=== PATIENT | female | born 1965 | race Two or more races ===

== ENCOUNTER → 2017-03-15 | Emergency (ER) | payer OTHER ==
[~2017-03-15] MED LIST: SODIUM CHLORIDE 0.9% 1000 ML INFUS.BAG IV ONE
[2017-03-15 14:18] VITALS: TEMP 98.2; BMI 46.4
--- NOTE | 2017-03-15 15:02 | PDOC ---
History of Present Illness - History of Present Illness Initial Comments: 51 year old female with a history of HTN, Insulin Dependent DM, Hep C treated, questionable liver cirrhosis, anxiety, MDD, diabetic neuropathy, MARILU, CVA ( residual left sided deficit on aspirin only), umbilical hernia repair, tubal ligation, section, recent one month psych admission for suicidal ideation and behavior presenting with vaginal bleeding and clots with lower abdominal pain for the past two weeks. She states that she usually has her periods toward the end of every month and was supposed to have one at the end of January which is what she originally attributed this vaginal bleeding to but it has been worsening ever since and she is now passing clots. Her periods typically last for 3-4 days but this is now been ongoing for at least two weeks. She clams she is going through 20 menstrual pads per day and they are all soaked with blood and clots. She describes the abdominal pain as lower bilateral deep pain 10/10, relapsing/remitting without relieving factors but is worse with urination, with association with food ingestion. She also endorses appetite loss, nausea, occasional chills, and generalized weakness over the past two days with pre-syncopal sensation. She stopped taking her aspirin once she noticed prolonged vaginal bleeding. She had an episode like this approximately five years ago that nearly required blood transfusion and she claims was never attributed to an identifiable cause. She denies chest pain, cough, fever, diarrhea, bloody bowel movements, constipation, vomiting, or other sick symptoms. She is not currently suicidal or homicidal. 03/15/17 15:36 <Abiel Chavez - Last Filed: 03/15/17 19:40> <Luz Sims - Last Filed: 03/15/17 22:15> - General Chief Complaint: Vaginal Bleeding Stated Complaint: Vaginal Bleeding Time Seen by Provider: 03/15/17 15:01 Past History - Past Medical History Asthma: Yes Cardiac Disorders: No CVA: Yes CHF: Yes Diabetes: Yes HTN: Yes Liver Disease: Yes (hep C) Psychiatric Problems: Yes (depression, anxiety, BIPOLAR) Suicide Attempt (Hx): No - Surgical History Abdominal Surgery: Yes (UMBILICAL HERNIA) - Psycho/Social/Smoking Cessation Hx Anxiety: Yes Suicidal Ideation: No Smoking History: Never smoked Have you smoked in the past 12 months: No If you are a former smoker, when did you quit?: 2013 'Breaking Loose' booklet given: 09/16/14 Hx Alcohol Use: No Drug/Substance Use Hx: No Substance Use Type: None <Abiel Chavez - Last Filed: 03/15/17 19:40> <Luz Sims - Last Filed: 03/15/17 22:15> - Past Medical History Allergies/Adverse Reactions: Allergies Allergy/AdvReac Type Severity Reaction Status Date / Time Iodinated Contrast- Oral and Allergy Verified 03/15/17 14:18 IV Dye [Iodinated Contrast Media - IV Dye] Home Medications: Ambulatory Orders Fluoxetine HCl [Prozac -] 40 mg PO DAILY 09/15/14 Gabapentin [Neurontin -] 600 mg PO TID 09/15/14 Davey-3 Fatty Acids [Davey-3] 1,000 mg PO BID 09/15/14 Albuterol Sulfate Inhaler - [Ventolin HFA Inhaler -] 1 - 2 inh PO QID 03/15/16 Clonazepam [Klonopin -] 1 mg PO TID 03/15/16 Diphenhydramine [Benadryl Capsule -] 25 mg PO PRN PRN 03/15/16 Mometasone Furoate [Asmanex 220Mcg -] 1 inh IH DAILY 03/15/16 Fluticasone Propionate [Flovent Diskus] 50 mcg IH QID 10/05/16 Gabapentin 300 mg PO HS 03/15/17 Insulin Glargine,Hum.rec.anlog [Lantus Solostar PEN (NF)] 45 ml SQ PRN 03/15/17 Insulin Glargine,Hum.rec.anlog [Lantus Solostar PEN -] 45 units SQ AM 03/15/17 Liraglutide [Victoza -] 1.8 mg SQ DAILY@0700 03/15/17 Lisinopril 10 mg PO DAILY 03/15/17 Topiramate [Topamax] 25 mg PO BID 03/15/17 Review of Systems - Review of Systems Constitutional: Yes: Chills, Loss of Appetite. No: Diaphoresis, Fever HEENTM: No: Blurred Vision, Recent change in vision Respiratory: No: Cough, Shortness of Breath Cardiac (ROS): Yes: Lightheadedness. No: Chest Pain, Irregular Heart Rate, Palpitations ABD/GI: Yes: Abdominal Distended, Nausea. No: Blood Streaked Bowels, Constipated, Diarrhea, Vomiting, Tarry Stools : Yes: Pain. No: Dysuria, Frequency, Flank Pain Musculoskeletal: Yes: Back Pain. No: Muscle Pain, Muscle Weakness Neurological: No: Headache, Numbness Psychiatric: Yes: Anxiety, Depression <Abiel Chavez - Last Filed: 03/15/17 19:40> *Physical Exam - Vital Signs Last Vital Signs Temp Pulse Resp BP Pulse Ox 98.2 F 108 H 20 110/79 97 03/15/17 14:15 03/15/17 14:15 03/15/17 14:15 03/15/17 14:15 03/15/17 14:15 - Physical Exam General Appearance: Yes: Nourished, Appropriately Dressed. No: Apparent Distress HEENT: positive: EOMI, JANETH, Normal Voice Neck: positive: Trachea midline, Normal Thyroid, Supple. negative: Tender, Rigid Respiratory/Chest: positive: Lungs Clear, Normal Breath Sounds. negative: Chest Tender, Respiratory Distress Cardiovascular: positive: Regular Rhythm, S1, S2, Murmur, Tachycardia. negative : Regular Rate, Edema Gastrointestinal/Abdominal: positive: Normal Bowel Sounds, Protuberent, Distended, Other (abdominal hernia repair site intact with subcutaneous induration). negative: Tender, Flat, Soft, Guarding, Rebound, Tenderness Musculoskeletal: negative: CVA Tenderness Extremity: positive: Normal Range of Motion Integumentary: positive: Normal Color, Dry, Warm Neurologic: positive: Fully Oriented, Alert, Normal Response, Depressed Affect ( Frequently crying on re-examinations.). negative: Normal Mood/Affect <Abiel Chavez - Last Filed: 03/15/17 19:40> - Vital Signs Last Vital Signs Temp Pulse Resp BP Pulse Ox 98.2 F 89 18 118/75 98 03/15/17 20:46 03/15/17 20:46 03/15/17 20:46 03/15/17 20:46 03/15/17 20:46 <Luz Sims - Last Filed: 03/15/17 22:15> ED Treatment Course - LABORATORY CBC & Chemistry Diagram: 03/15/17 16:04 03/15/17 16:04 <Abiel Chavez - Last Filed: 03/15/17 19:40> - LABORATORY CBC & Chemistry Diagram: 03/15/17 16:04 03/15/17 16:04 - ADDITIONAL ORDERS Additional order review: Laboratory Results 03/15/17 03/15/17 03/15/17 21:40 16:04 16:04 INR 1.08 Sodium Potassium Chloride Carbon Dioxide Anion Gap BUN Creatinine Creat Clearance w eGFR POC Glucometer [id number] Random Glucose Calcium Total Bilirubin AST ALT Alkaline Phosphatase Total Protein Albumin Serum , Qual Urine Color Urine Appearance Urine pH Ur Specific Canon Urine Protein Urine Glucose (UA) Urine Ketones Urine Blood Urine Nitrite Urine Bilirubin Urine Urobilinogen Ur Leukocyte Esterase Urine RBC Urine WBC Ur Epithelial Cells Urine HCG, Qual Blood Type O POSITIVE Antibody Screen Negative 03/15/17 03/15/17 03/15/17 16:04 16:04 15:51 INR Sodium 140 Potassium 3.4 L Chloride 107 Carbon Dioxide 24 Anion Gap 9 BUN 9 D Creatinine 0.9 Creat Clearance w eGFR > 60 POC Glucometer 93.64901 Random Glucose 91 D Calcium 9.5 Total Bilirubin 0.3 D AST 10 L D ALT 18 Alkaline Phosphatase 87 Total Protein 8.1 Albumin 3.7 Serum , Qual Negative Urine Color Ltyellow Urine Appearance Clear Urine pH 7.0 Ur Specific Canon 1.015 Urine Protein Negative Urine Glucose (UA) Negative Urine Ketones Negative Urine Blood 3+ H Urine Nitrite Negative Urine Bilirubin Negative Urine Urobilinogen 2.0 H Ur Leukocyte Esterase Trace Urine RBC 309 Urine WBC 7 Ur Epithelial Cells Rare Urine HCG, Qual Cancelled Blood Type Antibody Screen 03/15/17 03/15/17 03/15/17 21:40 16:04 15:51 RBC 4.59 MCV 80.2 MCHC 33.0 RDW 13.9 MPV 9.2 Neutrophils % 56.0 Lymphocytes % 32.2 D Monocytes % 7.2 Eosinophils % 4.1 Basophils % 0.5 POC Glucometer 234.81937 93.65366 - Medications Given in the ED: ED Medications Discontinued Medications Generic Name Dose Route Start Last Admin Trade Name Freq PRN Reason Stop Dose Admin Sodium Chloride 1,000 ml 03/15/17 15:32 03/15/17 16:03 Normal Saline - IV 03/15/17 15:33 1,000 ml ONCE ONE Administration <Luz Sims - Last Filed: 03/15/17 22:15> Medical Decision Making - Medical Decision Making 51 year old female with significant psychiatric history, hernia repair, tubal ligation, and CVA presenting with vaginal bleeding for the past two weeks around the time other usual menstrual period. This is most concerning for uterine fibroids, pre-menopausal signs, and less likely ectopic or intra- uterine (given history of tubal ligation). Will get CBC with diff, CMP , type and screen, pt/inr, TVUS, and 1L of NS. 03/15/17 16:02 Patient was crying so I reentered the room and she asked me to help her. When I asked with what. She stated, " I want to end it all and I want your help." She denied active intent or plan but was recently released from a hospital where she endorsed similar desires and was cutting her wrists with her lancets. 16:35 Transporter informed me that the patient was asking him for a knife while she was being transported upstairs. That patient was subseqently placed on 1:1 when she returned and placed in a room close to the physicians' desk. Psych was called and Dr. Yu was spoken with and agreed to see the patient. 03/15/17 19:36 Slightly elevated white count of 12 without anemia and other abs WNL. Pt. was signed out to Dr. Sims in a stable condition pending psych evaluation and another call back from Dr. Yu who as paged for the 3rd time at 19:38 PM. <Abiel Chavez - Last Filed: 03/15/17 19:40> *DC/Admit/Observation/Transfer - Attestations Physician Attestion: 03/15/17 19:40 I, Dr. Abiel Chavez, attest that this document has been prepared under my direction and personally reviewed by me in its entirety. I further attest, that it accurately reflects all work, treatment, procedures and medical decision -making performed by me. <Abiel Chavez - Last Filed: 03/15/17 19:40> - Discharge Dispostion Admit: No <Luz Sims - Last Filed: 03/15/17 22:15> Diagnosis at time of Disposition: Vaginal bleeding, Suicidal ideation - Discharge Dispostion Disposition: HOME Condition at time of disposition: Improved - Referrals Referrals: Damaris Solis MD [Primary Care Provider] - - Patient Instructions Printed Discharge Instructions: DI for Abnormal Uterine Bleeding, DI for Suicidal Ideation-Adult Additional Instructions: follow up outpatient with [facility]. return for any problems or concerns. you [facility], you can call the [facility] at [phone] to ask for phone number . return for any dizziness, or any concerns. you should take daily vitamin with iron.
[2017-03-15 16:19] LABS: BASOPHIL 0.5 % (0-2.0); EOSINOPHIL 4.1 % (0-4.5); MCH 26.5 pg (25.7-33.7); MEAN CELL VOLUME 80.2 fl (80-96); MEAN PLT VOLUME 9.2 fl (7.5-11.1); PLATELET COUNT 268 K/MM3 (134-434); RDW 13.9 % (11.6-15.6); URINE APPEARANCE CLEAR; URINE BILIRUBIN NEGATIVE (NEGATIVE); URINE BLOOD 3+ (NEGATIVE); URINE COLOR LTYELLOW; URINE GLUCOSE (UA) NEGATIVE (NEGATIVE); URINE KETONE NEGATIVE (NEGATIVE); URINE LEUK ESTERASE TRACE (NEGATIVE); URINE NITRITE NEGATIVE (NEGATIVE); URINE PROTEIN NEGATIVE (NEGATIVE); WHITE BLOOD COUNT 12.9 K/mm3 (4.0-10.0)
[2017-03-15 16:28] LABS: URINE RBC 309 /hpf (0-3); URINE WBC 7 /hpf (3-5)
--- NOTE | 2017-03-15 16:29 | PDOC ---
Attending Attestation - Resident Resident Name: Zunilda Chavezmertdereck - ED Attending Attestation I have performed the following: I have examined & evaluated the patient, The case was reviewed & discussed with the resident, I agree w/resident's findings & plan, Exceptions are as noted - HPI HPI: 03/15/17 16:24 51 yo F h/o depression, recenlty admitted for one month for suicide attempt, here today with c/o vaginal bleeding. pt states about regular period, but today heavier. does have h/o anemia. no f/c no sob. no abd pain, but feels abd distension. is supposed to be taking vitamin D, no prior transfusion, but has been discussed with her in the past for severe anemia. no cp. no sob. mild lightheaded. - Physicial Exam PE: 03/15/17 16:25 on exam pt awake alert NAD. lungs clear bilaterally, heart RRR no mrg. abd soft NT ND. obese. pelvic with scant blood in the os ( Dr. Chavez performed with myself at bedside). psych pt calm cooperative. speech clear. denies HI or AH. pt states she wants to end it all, tearful. depressed affect. skin warm and dry. - Medical Decision Making 03/15/17 16:28 plan r/o , severe anemia. uterine changes, due to fullness, plan tvus, labd ivf, psych consult for pt expression of suicidality and high risk. 03/15/17 17:42 pt with further expression of suicidality, mentioned to one of ED techs she was looking for a knife. placed on 1:[address] Laboy will see pt in ED. 03/15/17 22:08 pt seen in ED by Dr. Laboy, psychiatrist. feels pt is ok for dc home. has out pt follow up at [facility]. lives at home with home health aid from 9 - 5. will dc home. given numver for Dr. Cleveland, or the OB clinic.
[2017-03-15 16:54] LABS: ALBUMIN 3.7 g/dl (3.4-5.0); ANION GAP 9 (8-16); BILIRUBIN,TOTAL 0.3 mg/dL (0.2-1.0); CO2 24 mmol/L (21-32); CREATININE 0.9 mg/dL (0.55-1.02); GLUCOSE,RANDOM 91 mg/dL (74-106); SGOT/AST 10 U/L (15-37); SGPT/ALT 18 U/L (12-78); TOT PROT 8.1 g/dl (6.4-8.2)
[2017-03-15 16:59] LABS: ALK PHOS 87 U/L (45-117); CALCIUM 9.5 mg/dL (8.5-10.1)
[2017-03-15 17:05] LABS: INR 1.08 (0.82-1.09); PROTHROMBIN TIME (PATIENT) 11.9 SEC (9.98-11.88)
[2017-03-15 20:47] VITALS: BP 118/75; PULSE 89
--- NOTE | 2017-03-15 22:10 | CON.PSY ---
Psychiatry Consult Chief Complaint: I came for bleeding problems. I have a history of depression. Symptoms: reports: Depressed Mood - Previous Psychiatric Treatment Outpatient: Less than 6 mos ago Inpatient: One prior admission - Previous Substance Abuse Treatment Outpatient: None Inpatient: None - Reason for Previous Treatment Reason for Previous Treatment: Major Depression - Allergies Allergies: Allergies Allergy/AdvReac Type Severity Reaction Status Date / Time Iodinated Contrast- Oral and Allergy Verified 03/15/17 14:18 IV Dye [Iodinated Contrast Media - IV Dye] - Current Living Status Usual Living Arrangement: Alone - Current Mental Status Evaluation Appearance: Well Groomed Attitude: Cooperative - Affect Affect: Constrictive Appropriateness: Appropriate to Content - Mood Mood: Euthymic - Speech/Language Expressive: Coherent - Psychomotor Activity Psychomotor Activity: Normal - Thought Process Thought Process: Intact - Thought Content Hallucinations: Absent Delusions: Absent - Self Perception Self Perception: No Impairment - Cognition Attention: Alert Orientation: Time Memory, Immediate Recall: Intact Memory, Short Term: 3/3 Memory, Remote with Promptin/3 - Abstraction Proverb Interpretation: Intact Judgement: Intact - Insight Insight: Intact - Impulse Control Impulse Control: Minimally Impaired - Suicidal Ideation Suicidal Ideation: No - Homicidal Ideation Homicidal Ideation: No Assessment/Plan 1) Patioent is not acutely suicidal at this time. 2) Discharge when medically stable. 3) Psych follow up at [facility] opd.
== END | disposition home or self-care (01) ==
LOC: JER 14:13
DX: N93.9 Abnormal uterine and vaginal bleeding, unspecified (principal); R45.851 Suicidal ideations; I10 Essential (primary) hypertension; E11.9 Type 2 diabetes mellitus without complications; F41.9 Anxiety disorder, unspecified; F32.9 Major depressive disorder, single episode, unspecified; G47.33 Obstructive sleep apnea (adult) (pediatric)
CPT/HCPCS: 36415; 76830-TC; 80053; 81003; 81015; 84703; 85025; 85610; 86850; 86900; 86901; 99283-25

== ENCOUNTER 2017-06-23 09:50 | Observation (INO) | payer OTHER ==
[2017-06-23 09:59] VITALS: BMI 45.6
--- NOTE | 2017-06-23 10:28 | PDOC ---
History of Present Illness - General Chief Complaint: Syncope/Near Syncope Stated Complaint: DIZZINESS Time Seen by Provider: 06/23/17 10:07 History Source: Patient - History of Present Illness Timing/Duration: other Severity: severe Associated Symptoms: reports: nausea/vomiting, syncope. denies: chest pain, diaphoresis, fever/chills, headaches, loss of appetite, shortness of breath Past History - Past Medical History Allergies/Adverse Reactions: Allergies Allergy/AdvReac Type Severity Reaction Status Date / Time Iodinated Contrast- Oral and Allergy Intermediate Itching Verified 06/23/17 09: 55 IV Dye [Iodinated Contrast Media - IV Dye] tramadol AdvReac Verified 06/23/17 09:55 Home Medications: Ambulatory Orders Fluoxetine HCl [Prozac -] 40 mg PO DAILY 09/15/14 Gabapentin [Neurontin -] 600 mg PO BID 09/15/14 Vaughan-3 Fatty Acids [Vaughan-3] 1,000 mg PO BID 09/15/14 Albuterol Sulfate Inhaler - [Ventolin HFA Inhaler -] 1 - 2 inh PO QID 03/15/16 Gabapentin 900 mg PO HS 03/15/17 Insulin Glargine,Hum.rec.anlog [Lantus Solostar PEN -] 50 units SQ AM 03/15/17 Liraglutide [Victoza -] 1.8 mg SQ DAILY@1200 03/15/17 Lisinopril 10 mg PO DAILY 03/15/17 Topiramate [Topamax] 25 mg PO BID 03/15/17 Clonazepam [Klonopin -] 0.5 mg PO BID PRN 05/12/17 Hydrocodone/Acetaminophen [[place] 10-325 Tablet] 1 each PO BID PRN #60 tablet MDD 2 06/14/17 Asthma: Yes Cardiac Disorders: No CVA: Yes COPD: No CHF: No Dementia: No Diabetes: Yes (on meds) GI Disorders: No HTN: Yes Liver Disease: Yes (hep C - treated) Psychiatric Problems: Yes (depression, anxiety, BIPOLAR) Seizures: No Thyroid Disease: No - Surgical History Abdominal Surgery: Yes (UMBILICAL HERNIA) - Suicide/Smoking/Psychosocial Hx Smoking History: Former smoker Have you smoked in the past 12 months: No If you are a former smoker, when did you quit?: 04/28/15 Information on smoking cessation initiated: No 'Breaking Loose' booklet given: 09/16/14 Hx Alcohol Use: No Drug/Substance Use Hx: No Substance Use Type: None Hx Substance Use Treatment: No Review of Systems - Review of Systems Constitutional: No: Chills, Fever Respiratory: No: Shortness of Breath Cardiac (ROS): Yes: Lightheadedness, Syncope. No: Chest Pain, Palpitations ABD/GI: Yes: Nausea. No: Vomiting Neurological: Yes: Dizziness. No: Headache *Physical Exam - Vital Signs Last Vital Signs Temp Pulse Resp BP Pulse Ox 98 F 102 H 24 125/76 99 06/23/17 09:55 06/23/17 09:55 06/23/17 09:55 06/23/17 09:55 06/23/17 09:55 - Physical Exam General Appearance: Yes: Appropriately Dressed. No: Apparent Distress HEENT: positive: Normal Voice Neck: positive: Supple Respiratory/Chest: positive: Lungs Clear, Normal Breath Sounds. negative: Respiratory Distress Cardiovascular: positive: Regular Rate, S1, S2 Gastrointestinal/Abdominal: positive: Soft. negative: Tender Integumentary: positive: Dry, Warm, Other (hyperpigmented macular rash to L inframmary area representing ?healing cellulitis vs ?fungal) Neurologic: positive: Fully Oriented, Alert, Normal Mood/Affect, Motor Strength 5/5, Finger to Nose (no nystagmus, Arsenio intact, no drift, no ataxia) ED Treatment Course - LABORATORY CBC & Chemistry Diagram: 06/23/17 11:00 06/23/17 11:00 - RADIOLOGY Radiology Studies Ordered: Category Date Time Status HEAD CT WITHOUT CONTRAST [CT] Stat CT Scan 06/23/17 10:17 Ordered CHEST X-RAY PORTABLE* [RAD] Stat Radiology 06/23/17 10:16 Ordered Medical Decision Making - Medical Decision Making 06/23/17 10:22 51 yo F, mordbidly obesed, HTN, IDDM, HCV, sleep apnea, asthma, anxiety, depression, bipolar, here w/ dizziness. Patient reports intermittent lightheadedness and vertigo 3 days regardless of position. States last night while walking to bathroom, she became dizzy and passed out and was found on the floor by daughter. States she did not come to ED because it was Thanksgiving and was with family, but this a.m. when she awoke lightheadedness returned. Also complaining of nausea. No vomiting, headache, slurred speech, visual changes, or focal weakness. Denies chest pain or shortness of breath. Of note , patient currently on keflex for cellulitis of left breast. Started taken meds >10 days ago but has been non-compliant. States she has taken keflex in the past with no adverse reaction. States wound to left breast not erythematous or painful and has no f/c. See exam Dizziness w/ syncope S/p admission for same in 2014 w/ negative workup and discharged w/ meclizine which pt is no longer on, also given neuro referral at the time Currently on keflex for L breast cellulitis though on exam has no e/o overt infection Appears uncomfortable w/ mild tachycardia to 102 at triage, chest/lungs clear otherwise and non-focal R/o ACS vs infectious vs metabolic, less likely CVA as non-focal, less likely PE -ekg -cxr -CTH -labs -trail of meclizine -anticipate admission 06/23/17 12:04 EKG, CT head and labs unremarkable. Pt continues to c/o dizziness despite meclizine. Will continue to manage symptoms and admit at this time 06/23/17 12:08 06/23/17 12:30 Case d/w hospitalist and pt admitted to tele obs *DC/Admit/Observation/Transfer Diagnosis at time of Disposition: Syncope Qualifiers: Syncope type: unspecified Qualified Code(s): R55 - Syncope and collapse - Discharge Dispostion Condition at time of disposition: Fair Admit: Yes - Referrals - Patient Instructions - Post Discharge Activity
[2017-06-23] MEDS ORDERED: MECLIZINE HCL 25 MG TABLET (FP) PO ONE (10:43)
[2017-06-23] MEDS ORDERED: SODIUM CHLORIDE 1,000 ML IV STA (10:44)
[2017-06-23 11:05] LABS: BASOPHIL 1.5 % (0-2.0); MCHC 32.3 g/dl (32.0-36.0); MEAN CELL VOLUME 77.4 fl (80-96); MEAN PLT VOLUME 9.5 fl (7.5-11.1); NEUTROPHILS 57.5 % (42.8-82.8); PLATELET COUNT 249 K/MM3 (134-434); RDW 13.4 % (11.6-15.6); WHITE BLOOD COUNT 8.3 K/mm3 (4.0-10.0)
[2017-06-23 11:30] LABS: ALBUMIN 3.3 g/dl (3.4-5.0); ANION GAP 10 (8-16); BILIRUBIN,TOTAL 0.2 mg/dL (0.2-1.0); CALCIUM 8.7 mg/dL (8.5-10.1); CO2 22 mmol/L (21-32); CREATININE 0.9 mg/dL (0.55-1.02); GLUCOSE,RANDOM 228 mg/dL (74-106); SGOT/AST 11 U/L (15-37); SGPT/ALT 17 U/L (12-78); TOT PROT 7.2 g/dl (6.4-8.2)
[2017-06-23 11:33] LABS: ALK PHOS 79 U/L (45-117); CPK 65 IU/L (26-192); TROPONIN I < 0.02 ng/ml (0.00-0.05)
[2017-06-23] MEDS ORDERED: MECLIZINE HCL 25 MG TABLET (FP) ONE (11:42)
[2017-06-23] MEDS ORDERED: diazePAM 5 MG TABLET PO ONE (12:05)
[2017-06-23 12:28] LABS: URINE APPEARANCE CLEAR; URINE BILIRUBIN NEGATIVE (NEGATIVE); URINE BLOOD 1+ (NEGATIVE); URINE COLOR STRAW; URINE GLUCOSE (UA) NEGATIVE (NEGATIVE); URINE KETONE NEGATIVE (NEGATIVE); URINE NITRITE NEGATIVE (NEGATIVE); URINE PROTEIN NEGATIVE (NEGATIVE); URINE UROBILINOGEN NEGATIVE mg/dL (0.2-1.0)
[2017-06-23] MEDS ORDERED: diazePAM 5 MG TABLET ONE (12:32)
[2017-06-23 12:59] LABS: URINE HYALINE CAST 1 /lpf; URINE RBC <1 /hpf (0-3); URINE WBC <1 /hpf (3-5)
--- NOTE | 2017-06-23 13:04 | HP ---
CHIEF COMPLAINT: Syncope PCP: none HISTORY OF PRESENT ILLNESS: This is a 51 year old female with PMHx of HTN, DM, HCV (treated with laura 2015), CVA, cirrhosis, anxiety, morbidly obese, who presented to the ED with syncope. The patient reports she started becoming more dizzy about 1 week ago and then yesterday she had a syncopal episode, but didn't want to be evaluated because it was Thanksgiving. Today, she reports feeling weak. She denies any bowel or bladder incontinence, chest pain, nausea, vomiting, shortness of breath , dizziness, headache, dysuria, frequency. She states that she took Meclizine but it did not help. ER course was notable for: (1) UA 1+ blood (2) Temp 98, pulse 102, BP 125/76, resp 94, O2 99% on RA (3) Chest X-ray: no evidence of active disease (4) Head CT: No significant interval change or acute intracranial pathology identified Recent Travel: denies PAST MEDICAL HISTORY: denies PAST SURGICAL HISTORY: x2 Social History: Smoking: denies Alcohol: denies Drugs: denies Family History: Allergies Iodinated Contrast- Oral and IV Dye [Iodinated Contrast Media - IV Dye] Allergy (Intermediate, Verified 06/23/17 09:55) Itching tramadol Adverse Reaction (Verified 06/23/17 09:55) HOME MEDICATIONS: Home Medications Medication Instructions Recorded Fluoxetine HCl [Prozac -] 40 mg PO DAILY 09/15/14 Gabapentin [Neurontin -] 600 mg PO BID 09/15/14 [place]-3 Fatty Acids [[place]-3] 1,000 mg PO BID 09/15/14 Albuterol Sulfate Inhaler - 1 - 2 inh PO QID 03/15/16 [Ventolin HFA Inhaler -] Gabapentin 900 mg PO HS 03/15/17 Insulin Glargine,Hum.rec.anlog 50 units SQ AM 03/15/17 [Lantus Solostar PEN -] Liraglutide [Victoza -] 1.8 mg SQ DAILY@1200 03/15/17 Lisinopril 10 mg PO DAILY 03/15/17 Topiramate [Topamax] 25 mg PO BID 03/15/17 Clonazepam [Klonopin -] 0.5 mg PO BID PRN 10/13/17 Hydrocodone/Acetaminophen [[place] 1 each PO BID PRN #60 tablet MDD 2 06/14/17 10-325 Tablet] REVIEW OF SYSTEMS CONSTITUTIONAL: Absent: fever, chills, diaphoresis, generalized weakness, malaise, loss of appetite, weight change HEENT: Absent: rhinorrhea, nasal congestion, throat pain, throat swelling, difficulty swallowing, mouth swelling, ear pain, eye pain, visual changes CARDIOVASCULAR: Syncope yesterday. Absent: chest pain, palpitations, irregular heart rate, lightheadedness, peripheral edema RESPIRATORY: Absent: cough, shortness of breath, dyspnea with exertion, orthopnea, wheezing, stridor, hemoptysis GASTROINTESTINAL:Absent: abdominal pain, abdominal distension, nausea, vomiting , diarrhea, constipation, melena, hematochezia GENITOURINARY: Absent: dysuria, frequency, urgency, hesitancy, hematuria, flank pain, genital pain MUSCULOSKELETAL: Absent: myalgia, arthralgia, joint swelling, back pain, neck pain SKIN: Absent: rash, itching, pallor HEMATOLOGIC/IMMUNOLOGIC: Absent: easy bleeding, easy bruising, lymphadenopathy, frequent infections ENDOCRINE:Absent: unexplained weight gain, unexplained weight loss, heat intolerance, cold intolerance NEUROLOGIC: Absent: headache, focal weakness or paresthesias, dizziness, unsteady gait, seizure, mental status changes, bladder or bowel incontinence PSYCHIATRIC: Absent: anxiety, depression, suicidal or homicidal ideation, hallucinations. PHYSICAL EXAMINATION Vital Signs - 24 hr 06/23/17 09:55 Temperature 98 F Pulse Rate 102 H Respiratory 24 Rate Blood Pressure 125/76 O2 Sat by Pulse 99 Oximetry (%) GENERAL: Awake, alert, and fully oriented, in no acute distress. Morbidly obese HEAD: Normal with no signs of trauma. EYES: Pupils equal, round and reactive to light, extraocular movements intact, sclera anicteric, conjunctiva clear. No lid lag. EARS, NOSE, THROAT: Ears normal, nares patent, oropharynx clear without exudates. Moist mucous membranes. NECK: Normal range of motion, supple without lymphadenopathy, JVD, or masses. LUNGS: Breath sounds equal, clear to auscultation bilaterally. No wheezes, and no crackles. No accessory muscle use. HEART: Regular rate and rhythm, normal S1 and S2 without murmur, rub or gallop. ABDOMEN: Soft, nontender, not distended, normoactive bowel sounds, no guarding, no rebound, no masses. No hepatomegaly or splenomegaly. MUSCULOSKELETAL: Normal range of motion at all joints. No bony deformities or tenderness. No CVA tenderness. UPPER EXTREMITIES: 2+ pulses, warm, well-perfused. No cyanosis. No clubbing. No peripheral edema. LOWER EXTREMITIES: 2+ pulses, warm, well-perfused. No calf tenderness. No peripheral edema. NEUROLOGICAL: Cranial nerves II-XII intact. Normal speech. Gait not observed PSYCHIATRIC: Cooperative. Good eye contact. Appropriate mood and affect. SKIN: Warm, dry, normal turgor, no rashes or lesions noted, normal capillary refill. Laboratory Results - last 24 hr 06/23/17 06/23/17 06/23/17 11:00 11:00 11:58 WBC 8.3 D RBC 4.33 Hgb 10.8 D Hct 33.5 MCV 77.4 L MCH 25.0 L MCHC 32.3 RDW 13.4 Plt Count 249 MPV 9.5 Neutrophils % 57.5 Lymphocytes % 30.6 Monocytes % 6.4 Eosinophils % 4.0 Basophils % 1.5 Sodium 140 Potassium 3.8 Chloride 108 H Carbon Dioxide 22 Anion Gap 10 BUN 10 Creatinine 0.9 Creat Clearance w eGFR > 60 Random Glucose 228 H D Calcium 8.7 Total Bilirubin 0.2 D AST 11 L ALT 17 Alkaline Phosphatase 79 Creatine Kinase 65 Troponin I < 0.02 Total Protein 7.2 Albumin 3.3 L Serum , Qual Urine Color Straw Urine Appearance Clear Urine pH 6.0 Ur Specific [place] 1.011 Urine Protein Negative Urine Glucose (UA) Negative Urine Ketones Negative Urine Blood 1+ H Urine Nitrite Negative Urine Bilirubin Negative Urine Urobilinogen Negative 06/23/17 12:00 WBC RBC Hgb Hct MCV MCH MCHC RDW Plt Count MPV Neutrophils % Lymphocytes % Monocytes % Eosinophils % Basophils % Sodium Potassium Chloride Carbon Dioxide Anion Gap BUN Creatinine Creat Clearance w eGFR Random Glucose Calcium Total Bilirubin AST ALT Alkaline Phosphatase Creatine Kinase Troponin I Total Protein Albumin Serum , Qual Negative Urine Color Urine Appearance Urine pH Ur Specific [place] Urine Protein Urine Glucose (UA) Urine Ketones Urine Blood Urine Nitrite Urine Bilirubin Urine Urobilinogen Assessment: This is a 51 year old female with PMHx of HTN, DM, HCV (treated with laura 2015), CVA, cirrhosis, anxiety, morbidly obese, who presented to the ED with syncope. Plan: 1) Syncope - Recurrent, episode in 2015, all workup normal, recommended outpatient tilt- table test. Patient is unaware if she had it done - Carotid dopplers with no evidence of high grade stenosis - ECHO with technically difficult study. Regional wall motion abnormalities, LV not well visualized, mild MR, mild TR, insufficient TR detected to calculate RVSP, no pericardial effusion, aortic valve is no well visualized - Trend troponins x1 negative - HgbA1c 05/05/17: 8.9 - F/u lipid panel - F/u TSH - F/u cardiology consult: will likely need tilt table test as outpatient if she has not already gotten it 2) Insulin dependent diabetes - BGM ACHS - Novolog 15u sq tidac - Levemir 50u sq daily - Continue to monitor 3) HTN - Continue Lisinopril - Continue to monitor 4) Sleep apnea - Patient reports does not use c-pap at home, f/u sleep study - F/u pulmonary consult 5) Anxiety: - Continue Clonazepam 6) F/E/N - Diabetic diet - Monitor electrolytes 7) Prophylaxis: - Zantac 150mg po hs - SCDs bilaterally 8) Dispo: - Awaiting cardiology evaluation CODE STATUS: FULL CODE Visit type - Emergency Visit Emergency Visit: Yes ED Registration Date: 06/23/17 Care time: The patient presented to the Emergency Department on the above date and was hospitalized for further evaluation of their emergent condition. - New Patient This patient is new to me today: Yes Date on this admission: 06/23/17 - Critical Care Critical Care patient: No
[2017-06-23] MEDS: clonazePAM 0.5 MG TABLET PO PRN ×2 (17:55→22:05)
[2017-06-23] MEDS: LIPASE/PROTEASE/AMYLASE 36,000 UNIT CAPSULE PO SCH (18:26)
[2017-06-23] MEDS: HEPARIN NA (PORCINE) 5,000 UNITS/ML 1ML VIAL SQ SCH ×2 (18:28→21:18)
[2017-06-23] MEDS: LEVOTHYROXINE NA 25 MCG TABLET (FP) PO SCH (18:28)
[2017-06-23 18:35] LABS: CPK 58 IU/L (26-192); TROPONIN I < 0.02 ng/ml (0.00-0.05)
[2017-06-23 19:40] LABS: URINE LEUK ESTERASE Negative (NEGATIVE)
[2017-06-23] MEDS: RANITIDINE HCL 150 MG TABLET (FP) PO SCH (21:19)
[2017-06-23] MEDS ORDERED: ZOLPIDEM TARTRATE 5 MG TABLET PO PRN (22:00)
[2017-06-23] MEDS ORDERED: CEPHALEXIN 250 MG/5 ML ORAL SUSPENSION PO SCH (22:00)
[2017-06-23] MEDS ORDERED: guaiFENesin 200 MG/10 ML 10 ML UNIT-DOSE CUPS PO ONE (22:00)
[2017-06-23] MEDS: ACETAMINOPHEN 325 MG TABLET (FP) PO PRN (23:51)
[2017-06-24] MEDS: HEPARIN NA (PORCINE) 5,000 UNITS/ML 1ML VIAL SQ SCH ×3 (06:23→21:49)
[2017-06-24] MEDS: INSULIN (NOVOLOG) ASPART 100 UNITS/ML 10ML VIAL SQ SCH ×3 (06:26→17:17)
[2017-06-24] MEDS: INSULIN DETEMIR 100 UNITS/ML MDV SQ SCH (06:26)
[2017-06-24] MEDS: LEVOTHYROXINE NA 25 MCG TABLET (FP) PO SCH (06:26)
[2017-06-24 07:38] LABS: MCH 24.8 pg (25.7-33.7); MCHC 32.2 g/dl (32.0-36.0); MEAN CELL VOLUME 77.1 fl (80-96); MEAN PLT VOLUME 9.4 fl (7.5-11.1); PLATELET COUNT 242 K/MM3 (134-434); RDW 13.2 % (11.6-15.6); WHITE BLOOD COUNT 7.6 K/mm3 (4.0-10.0)
[2017-06-24] MEDS ORDERED: PT OWN MED DRAWER 7, Y5N ONE (08:38)
[2017-06-24] MEDS ORDERED: SODIUM POLYSTYRENE SULFONATE 15 GM/60 ML BOTTLE ONE (08:38)
[2017-06-24] MEDS: ASPIRIN 325 MG ENTERIC COATED TABLET (FP) PO SCH ×2 (08:39→09:04)
[2017-06-24] MEDS: LIPASE/PROTEASE/AMYLASE 36,000 UNIT CAPSULE PO SCH ×4 (08:40→16:50)
[2017-06-24] MEDS: LISINOPRIL 10 MG TABLET (FP) PO SCH ×2 (08:40→09:04)
[2017-06-24] MEDS: clonazePAM 0.5 MG TABLET PO PRN ×2 (08:45→21:49)
[2017-06-24 09:05] LABS: ALBUMIN 3.1 g/dl (3.4-5.0); ALK PHOS 78 U/L (45-117); ANION GAP 9 (8-16); BILIRUBIN,TOTAL 0.5 mg/dL (0.2-1.0); CALCIUM 8.1 mg/dL (8.5-10.1); CHOLESTEROL 158 mg/dL (50-200); CO2 22 mmol/L (21-32); CREATININE 0.9 mg/dL (0.55-1.02); GLUCOSE,RANDOM 140 mg/dL (74-106); SGOT/AST 10 U/L (15-37); SGPT/ALT 16 U/L (12-78); THYROID STIMULATING HORMONE 2.92 uIU/ml (0.358-3.74)
[2017-06-24] MEDS ORDERED: TOPIRAMATE 25 MG TABLET (FP) PO SCH (10:00)
[2017-06-24] MEDS: oxyCODONE HCL 5 MG TABLET PO PRN ×2 (12:22→23:12)
[2017-06-24] MEDS: LIRAGLUTIDE 0.6 MG/0.1 ML SQ SCH (12:34)
--- NOTE | 2017-06-24 12:46 | CON.CARD ---
Consult Consult Specialty:: Cardiology Referred by:: Hospitalist Reason for Consultation:: Cardiac evaluation - History of Present Illness Chief Complaint: Syncope History of Present Illness: Patient is a 51 year old female with underlying history of hypertension , hypercholesterolemia, diabetes mellitus insulin requiring, CVA, cirrhosis, anxiety, morbid obesity and obstructive sleep apnea who presents with 2 episodes of syncope. She became dizzy followed by loss of consciousness. She denies chest pain, but complains of shortness of breath, cough slightly productive and intermittent palpitations. She denies paroxysmal nocturnal dyspnea or orthopnea. She denies fever or chills. She denies headache. She denies nausea, vomiting, diarrhea or abdominal pain. - History Source History Provided By: Patient, Medical Record Limitations to Obtaining History: No Limitations - Past Medical History [employer]: Yes: TIA Cardio/Vascular: Yes: CAD, HTN, Hyperlipdemia Pulmonary: Yes: Sleep Apnea ...LMP: 08/19/14 Infectious Disease: Yes: Other (Hep C) Psych: Yes: Anxiety Endocrine: Yes: Diabetes Mellitus - Past Surgical History Past Surgical History: Yes: - Alcohol/Substance Use Hx Alcohol Use: No - Smoking History Smoking history: Former smoker Have you smoked in the past 12 months: No If you are a former smoker, when did you quit?: 04/28/15 - Social History Usual Living Arrangement: Alone ADL: Independent History of Recent Travel: No Home Medications - Allergies Allergies/Adverse Reactions: Allergies Allergy/AdvReac Type Severity Reaction Status Date / Time Iodinated Contrast- Oral and Allergy Intermediate Itching Verified 06/23/17 09: 55 IV Dye [Iodinated Contrast Media - IV Dye] tramadol AdvReac Verified 06/23/17 09:55 - Home Medications Home Medications: Ambulatory Orders Fluoxetine HCl [Prozac -] 40 mg PO DAILY 09/15/14 Gabapentin [Neurontin -] 600 mg PO BID 09/15/14 Era-3 Fatty Acids [Era-3] 1,000 mg PO BID 09/15/14 Albuterol Sulfate Inhaler - [Ventolin HFA Inhaler -] 1 - 2 inh PO QID 03/15/16 Gabapentin 900 mg PO HS 03/15/17 Insulin Glargine,Hum.rec.anlog [Lantus Solostar PEN -] 50 units SQ AM 03/15/17 Liraglutide [Victoza -] 1.8 mg SQ DAILY@1200 03/15/17 Lisinopril 10 mg PO DAILY 03/15/17 Topiramate [Topamax] 100 mg PO BID 03/15/17 Clonazepam [Klonopin -] 0.5 mg PO BID PRN 05/12/17 Hydrocodone/Acetaminophen [[place] 10-325 Tablet] 1 each PO BID PRN #60 tablet MDD 2 06/14/17 Family Disease History - Family Disease History Family Disease History: Diabetes: Brother, Sister, Other: Daughter Review of Systems - Review of Systems Constitutional: denies: Chills, Fever Cardiovascular: reports: Palpitations, Shortness of Breath. denies: Chest Pain Respiratory: reports: Cough, SOB. denies: Hemoptysis, Orthopnea, PND Gastrointestinal: denies: Abdominal Pain, Constipation, Diarrhea, Melena, Nausea , Rectal Bleeding, Vomiting Genitourinary: denies: Dysuria Neurological: reports: Dizziness, Syncope. denies: Headache, Numbness, Parasthesia, Seizure, Unsteady Gait, Weakness Vital Signs: Vital Signs Temperature 97.8 F 06/24/17 06:00 Pulse Rate 78 06/24/17 06:00 Respiratory Rate 18 06/24/17 06:00 Blood Pressure 109/65 06/24/17 06:00 O2 Sat by Pulse Oximetry (%) 95 06/23/17 21:00 Constitutional: Yes: Obese Neck: Yes: Supple Respiratory: Yes: Diminished Gastrointestinal: Yes: Normal Bowel Sounds, Soft. No: Other Cardiovascular: Yes: Regular Rate and Rhythm, Pulse Irregular JVD: No Carotid Bruit: No PMI: Non-Displaced Heart Sounds: Yes: S1, S2. No: Gallop Murmur: No: Systolic Murmur, Diastolic Murmur Edema: No - Other Data Labs, Other Data: CBC, BMP 06/24/17 05:25 06/24/17 05:25 Troponin, BNP 06/23/17 06/23/17 16:45 16:45 Troponin I < 0.02 B-Natriuretic Peptide 40.99 Laboratory Results - last 24 hr 06/23/17 06/23/17 06/23/17 11:58 12:00 16:45 WBC RBC Hgb Hct MCV MCH MCHC RDW Plt Count MPV Manual Slide Review Sodium Potassium Chloride Carbon Dioxide Anion Gap BUN Creatinine Creat Clearance w eGFR POC Glucometer Random Glucose Calcium Total Bilirubin AST ALT Alkaline Phosphatase Creatine Kinase 58 Troponin I < 0.02 B-Natriuretic Peptide Total Protein Albumin Triglycerides Cholesterol Total LDL Cholesterol HDL Cholesterol TSH Serum , Qual Negative Urine Color Straw Urine Appearance Clear Urine pH 6.0 Ur Specific [place] 1.011 Urine Protein Negative Urine Glucose (UA) Negative Urine Ketones Negative Urine Blood 1+ H Urine Nitrite Negative Urine Bilirubin Negative Urine Urobilinogen Negative Ur Leukocyte Esterase Negative Urine WBC (Auto) <1 Urine RBC (Auto) <1 Ur Epithelial Cells Rare Hyaline Casts 1 06/24/17 06/24/17 06/24/17 05:25 05:25 06:25 WBC 7.6 RBC 4.26 Hgb 10.6 L Hct 32.9 MCV 77.1 L MCH 24.8 L MCHC 32.2 RDW 13.2 Plt Count 242 MPV 9.4 Manual Slide Review No Result Required. Sodium 140 Potassium 3.8 Chloride 109 H Carbon Dioxide 22 Anion Gap 9 BUN 11 Creatinine 0.9 Creat Clearance w eGFR > 60 POC Glucometer 151 Random Glucose 140 H D Calcium 8.1 L Total Bilirubin 0.5 D AST 10 L ALT 16 Alkaline Phosphatase 78 Creatine Kinase Troponin I B-Natriuretic Peptide Total Protein 7.0 Albumin 3.1 L Triglycerides 154 Cholesterol 158 D Total LDL Cholesterol 114 H HDL Cholesterol 26 L TSH 2.92 D Serum , Qual Urine Color Urine Appearance Urine pH Ur Specific [place] Urine Protein Urine Glucose (UA) Urine Ketones Urine Blood Urine Nitrite Urine Bilirubin Urine Urobilinogen Ur Leukocyte Esterase Urine WBC (Auto) Urine RBC (Auto) Ur Epithelial Cells Hyaline Casts Sinus rhythm Imaging - Results Chest X-ray: Report Reviewed (Unremarkable) Cat Scan: Report Reviewed (Head CT unremarkable) Ultrasound: Report Reviewed (Carotid Doppler no hemodynamically significant stenosis) EKG: Report Reviewed Problem List - Problems (1) Syncope Code(s): R55 - SYNCOPE AND COLLAPSE Qualifiers: Qualified Code(s): R55 - Syncope and collapse (2) Anxiety Code(s): F41.9 - ANXIETY DISORDER, UNSPECIFIED (3) Diabetes mellitus, insulin dependent (IDDM), uncontrolled Code(s): E10.65 - TYPE 1 DIABETES MELLITUS WITH HYPERGLYCEMIA (4) MARILU (obstructive sleep apnea) Code(s): G47.33 - OBSTRUCTIVE SLEEP APNEA (ADULT) (PEDIATRIC) Assessment/Plan 1. Syncope, etiology to be determined 2. Hypertension 3. Hypercholesterolemia 4. Diabetes mellitus - Insulin requiring 5. Morbid obesity with probable obstructive sleep apnea 6. Anxiety disorder (severe) 7. Hypothyroidism PLAN: 1. Continue current medical therapy including Prinivil and ASA (but consider baby ASA instead) 2. Transthoracic echocardiograpy result was noted 3. Carotid Doppler result noted 4. Anxiety management 5. Obstructive sleep apnea needs to be addressed and possible CPAP if clinically indicated Further plans are to follow Herberth Werner MD
--- NOTE | 2017-06-24 12:53 | PN ---
Progress Note (short form) - Note Progress Note: Subjective: The patient was seen and examined at the bedside, she has complaints that she didn't get her Prozac and Gabapentin yesterday Current Medications Generic Name Dose Route Start Last Admin Trade Name Freq PRN Reason Stop Dose Admin Acetaminophen 650 mg 06/23/17 17:02 06/23/17 23:51 Tylenol - PO 650 mg Q6H PRN Administration FEVER OR PAIN Albuterol Sulfate 1 amp 06/24/17 12:12 Ventolin 0.083% Nebulizer Soln - NEB Q6H PRN SHORT OF BREATH/WHEEZING Aspirin 325 mg 06/24/17 10:00 06/24/17 09:04 Ecotrin - PO Not Given DAILY SHAUN Clonazepam 0.5 mg 06/23/17 17:01 06/24/17 08:45 Klonopin - PO 0.5 mg BID PRN Administration ANXIETY Fluoxetine HCl 40 mg 06/25/17 10:00 Prozac - PO DAILY SHAUN Gabapentin 900 mg 06/24/17 22:00 Neurontin - PO HS SHAUN Gabapentin 600 mg 06/24/17 16:00 Neurontin - PO BID@0800,1600 SHAUN Heparin Sodium (Porcine) 5,000 unit 06/23/17 14:00 06/24/17 06:23 Heparin - SQ Not Given TID [facility] Insulin Aspart 15 units 06/24/17 07:00 06/24/17 12:10 Novolog Vial SQ Not Given TIDAC [facility] Insulin Detemir 50 units 06/24/17 07:00 06/24/17 06:26 Levemir Vial SQ 50 units DAILY@0700 SHAUN Administration Levothyroxine Sodium 25 mcg 06/23/17 17:30 06/24/17 06:26 Synthroid - PO 25 mcg DAILY@0700 SHAUN Administration Lisinopril 10 mg 06/24/17 10:00 06/24/17 09:04 Prinivil PO Not Given DAILY SHAUN Oxycodone HCl 5 mg 06/24/17 12:11 06/24/17 12:22 Roxicodone - PO 5 mg Q6H PRN Administration PAIN Pancrelipase 1 cap 06/23/17 17:30 06/24/17 12:[address] 36,000 Units Capsule PO Not Given TIDCM [facility] Ranitidine HCl 150 mg 06/23/17 22:00 06/23/17 21:19 Zantac - PO 150 mg HS SHAUN Administration Topiramate 100 mg 06/24/17 10:27 Topamax - PO BID SHAUN Zolpidem Tartrate 5 mg 06/23/17 22:00 Ambien - PO HS PRN INSOMNIA Objective: Vital Signs Period Temp Pulse Resp BP Sys/Giron Pulse Ox Last 24 Hr 97.7 F-98.7 F 78-102 18-22 109-146/65-94 95-99 Physical Exam: GENERAL: Awake, alert, and fully oriented, in no acute distress. Morbidly obese LUNGS: Breath sounds equal, clear to auscultation bilaterally. No wheezes, and no crackles. No accessory muscle use. HEART: Regular rate and rhythm, normal S1 and S2 without murmur, rub or gallop. ABDOMEN: Soft, nontender, not distended, normoactive bowel sounds, no guarding, no rebound, no masses. No hepatomegaly or splenomegaly. MUSCULOSKELETAL: Normal range of motion at all joints. No bony deformities or tenderness. No CVA tenderness. UPPER EXTREMITIES: 2+ pulses, warm, well-perfused. No cyanosis. No clubbing. No peripheral edema. LOWER EXTREMITIES: 2+ pulses, warm, well-perfused. No calf tenderness. No peripheral edema. NEUROLOGICAL: Cranial nerves II-XII intact. Normal speech. Gait not observed PSYCHIATRIC: Cooperative. Good eye contact. Appropriate mood and affect. SKIN: Warm, dry, normal turgor, no rashes or lesions noted, normal capillary refill. CBCD WBC 7.6 K/mm3 (4.0-10.0) 06/24/17 05:25 RBC 4.26 M/mm3 (3.60-5.2) 06/24/17 05:25 Hgb 10.6 GM/dL (10.7-15.3) L 06/24/17 05:25 Hct 32.9 % (32.4-45.2) 06/24/17 05:25 MCV 77.1 fl (80-96) L 06/24/17 05:25 MCHC 32.2 g/dl (32.0-36.0) 06/24/17 05:25 RDW 13.2 % (11.6-15.6) 06/24/17 05:25 Plt Count 242 K/MM3 (134-434) 06/24/17 05:25 MPV 9.4 fl (7.5-11.1) 06/24/17 05:25 CMP Sodium 140 mmol/L (136-145) 06/24/17 05:25 Potassium 3.8 mmol/L (3.5-5.1) 06/24/17 05:25 Chloride 109 mmol/L (98-107) H 06/24/17 05:25 Carbon Dioxide 22 mmol/L (21-32) 06/24/17 05:25 Anion Gap 9 (8-16) 06/24/17 05:25 BUN 11 mg/dL (7-18) 06/24/17 05:25 Creatinine 0.9 mg/dL (0.55-1.02) 06/24/17 05:25 Creat Clearance w eGFR > 60 (>60) 06/24/17 05:25 Random Glucose 140 mg/dL (74-106) H D 06/24/17 05:25 Calcium 8.1 mg/dL (8.5-10.1) L 06/24/17 05:25 Total Bilirubin 0.5 mg/dL (0.2-1.0) D 06/24/17 05:25 AST 10 U/L (15-37) L 06/24/17 05:25 ALT 16 U/L (12-78) 06/24/17 05:25 Alkaline Phosphatase 78 U/L (45-117) 06/24/17 05:25 Total Protein 7.0 g/dl (6.4-8.2) 06/24/17 05:25 Albumin 3.1 g/dl (3.4-5.0) L 06/24/17 05:25 CARDIAC ENZYMES Creatine Kinase 58 IU/L (26-192) 06/23/17 16:45 Troponin I < 0.02 ng/ml (0.00-0.05) 06/23/17 16:45 Assessment: This is a 51 year old female with PMHx of HTN, DM, HCV (treated with harvoni 2015), CVA, cirrhosis, anxiety, morbidly obese, who presented to the ED with syncope. Plan: 1) Syncope - Recurrent, episode in 2014, all workup normal, recommended outpatient tilt- table test. Patient is unaware if she had it done - Carotid dopplers with no evidence of high grade stenosis - ECHO with technically difficult study. Regional wall motion abnormalities, LV not well visualized, mild MR, mild TR, insufficient TR detected to calculate RVSP, no pericardial effusion, aortic valve is no well visualized - Trops negative x2 - HgbA1c 05/05/17: 8.9 - Lipid panel reviewed - TSH 2.92 - F/u cardiology consult: will likely need tilt table test as outpatient if she has not already gotten it 2) Insulin dependent diabetes - BGM ACHS - Novolog 15u sq tidac - Levemir 50u sq daily - Victoza 1.8u sq at 12pm daily - Continue to monitor 3) HTN - Continue Lisinopril - Continue to monitor 4) Sleep apnea - Patient reports does not use c-pap at home, f/u sleep study - Appreciate pulmonary consult 5) Anxiety: - Continue Clonazepam 6) F/E/N - Diabetic diet - Monitor electrolytes 7) Prophylaxis: - Zantac 150mg po hs - SCDs bilaterally 8) Dispo: - Awaiting cardiology evaluation CODE STATUS: FULL CODE Visit type - Emergency Visit Emergency Visit: Yes ED Registration Date: 06/23/17 Care time: The patient presented to the Emergency Department on the above date and was hospitalized for further evaluation of their emergent condition. - New Patient This patient is new to me today: No - Critical Care Critical Care patient: No
--- NOTE | 2017-06-24 13:52 | CON.PULM ---
Consult Consult Specialty:: PULM/CCM Referred by:: UMAIR Reason for Consultation:: OSAS - History of Present Illness Chief Complaint: syncope History of Present Illness: 51 F, OSAS diagnosed at [facility] several years (details not known to the patient) ago an was on CPAP for a brief time, HTN, DM, HCV (treated with harvoni 2015), CVA, cirrhosis, anxiety, and morbid obesity. Admitted via the ER due to syncope. She reportedly became dizzy about 1 week ago and then has a syncopal event omn Thanksgiving. She reports multiple episodes of waking up gasping for air and choking during the sleep period. - History Source History Provided By: Patient Limitations to Obtaining History: No Limitations - Past Medical History [employer]: Yes: TIA Cardio/Vascular: Yes: CAD, HTN, Hyperlipdemia Pulmonary: Yes: Sleep Apnea ...LMP: 08/19/14 Infectious Disease: Yes: Other (Hep C) Psych: Yes: Anxiety Endocrine: Yes: Diabetes Mellitus - Past Surgical History Past Surgical History: Yes: - Alcohol/Substance Use Hx Alcohol Use: No - Smoking History Smoking history: Former smoker Have you smoked in the past 12 months: No If you are a former smoker, when did you quit?: 04/28/15 - Social History Usual Living Arrangement: Alone ADL: Independent History of Recent Travel: No Home Medications - Allergies Allergies/Adverse Reactions: Allergies Allergy/AdvReac Type Severity Reaction Status Date / Time Iodinated Contrast- Oral and Allergy Intermediate Itching Verified 06/23/17 09: 55 IV Dye [Iodinated Contrast Media - IV Dye] tramadol AdvReac Verified 06/23/17 09:55 - Home Medications Home Medications: Ambulatory Orders Fluoxetine HCl [Prozac -] 40 mg PO DAILY 09/15/14 Gabapentin [Neurontin -] 600 mg PO BID 09/15/14 Tama-3 Fatty Acids [Tama-3] 1,000 mg PO BID 09/15/14 Albuterol Sulfate Inhaler - [Ventolin HFA Inhaler -] 1 - 2 inh PO QID 03/15/16 Gabapentin 900 mg PO HS 03/15/17 Insulin Glargine,Hum.rec.anlog [Lantus Solostar PEN -] 50 units SQ AM 03/15/17 Liraglutide [Victoza -] 1.8 mg SQ DAILY@1200 03/15/17 Lisinopril 10 mg PO DAILY 03/15/17 Topiramate [Topamax] 100 mg PO BID 03/15/17 Clonazepam [Klonopin -] 0.5 mg PO BID PRN 05/12/17 Hydrocodone/Acetaminophen [[place] 10-325 Tablet] 1 each PO BID PRN #60 tablet MDD 2 06/14/17 Family Disease History - Family Disease History Family Disease History: Diabetes: Brother, Sister, Other: Daughter Review of Systems - Review of Systems Constitutional: denies: Chills, Fever, Malaise, Night Sweats, Unintentional Wgt. Loss Eyes: reports: No Symptoms HENT: reports: No Symptoms Neck: reports: No Symptoms Cardiovascular: reports: Edema, Shortness of Breath. denies: Chest Pain, Palpitations Respiratory: reports: Cough, Snoring, SOB. denies: Hemoptysis, Wheezing Gastrointestinal: reports: No Symptoms Genitourinary: reports: No Symptoms Breasts: reports: No Symptoms Reported Musculoskeletal: reports: No Symptoms Integumentary: reports: No Symptoms Neurological: reports: Syncope. denies: Seizure Endocrine: reports: No Symptoms Hematology/Lymphatic: reports: No Symptoms Psychiatric: reports: No Symptoms Physical Exam Vital Sings: Vital Signs Temperature 97.8 F 06/24/17 06:00 Pulse Rate 78 06/24/17 06:00 Respiratory Rate 18 06/24/17 06:00 Blood Pressure 109/65 06/24/17 06:00 O2 Sat by Pulse Oximetry (%) 95 06/23/17 21:00 Constitutional: Yes: No Distress, Obese Eyes: Yes: Conjunctiva Clear, EOM Intact HENT: Yes: Atraumatic, Normocephalic, Tonsillar Exudate Neck: Yes: Supple Cardiovascular: Yes: Regular Rate and Rhythm Respiratory: Yes: CTA Bilaterally. No: Rales, Stridor, Tachypnea, Wheezes ...Inspection: Yes: WNL ...Clubbing: No Gastrointestinal: Yes: Normal Bowel Sounds, Soft, Abdomen, Obese Renal/: Yes: WNL Musculoskeletal: Yes: WNL Extremities: Yes: WNL Edema: No Peripheral Pulses WNL: Yes Integumentary: Yes: WNL Neurological: Yes: WNL, Alert, Oriented ...Motor Strength: WNL Psychiatric: Yes: WNL, Alert, Oriented Labs: CBC, BMP 06/24/17 05:25 06/24/17 05:25 Imaging - Results Chest X-ray: Report Reviewed, Image Reviewed Problem List - Problems (1) Syncope Code(s): R55 - SYNCOPE AND COLLAPSE Qualifiers: Syncope type: unspecified Qualified Code(s): R55 - Syncope and collapse (2) Hyperglycemia Code(s): R73.9 - HYPERGLYCEMIA, UNSPECIFIED (3) Anxiety Code(s): F41.9 - ANXIETY DISORDER, UNSPECIFIED (4) Back pain with right-sided radiculopathy Code(s): M54.10 - RADICULOPATHY, SITE UNSPECIFIED (5) Bipolar disorder Code(s): F31.9 - BIPOLAR DISORDER, UNSPECIFIED (6) Diabetes mellitus, insulin dependent (IDDM), uncontrolled Code(s): E10.65 - TYPE 1 DIABETES MELLITUS WITH HYPERGLYCEMIA (7) MARILU (obstructive sleep apnea) Code(s): G47.33 - OBSTRUCTIVE SLEEP APNEA (ADULT) (PEDIATRIC) Assessment/Plan Should have formal NPSG after discharge to rule out other forms of sleep apnea given her extensive medical history (ie CSA) O2 as needed BD TX PRN (?) Bariatric surgery evaluation Syncope workup VTE prophylaxis Will follow Thank you. Dr Leija
[2017-06-24] MEDS: ALBUTEROL SO4 0.083% IH SOL 2.5 MG/3 ML VIAL.NEB. NEB PRN ×2 (14:00→21:35)
[2017-06-24] MEDS: GABAPENTIN 300 MG CAPSULE (FP) PO SCH ×2 (17:16→21:49)
[2017-06-24] MEDS: TOPIRAMATE 100 MG TABLET PO SCH (21:49)
[2017-06-24] MEDS: RANITIDINE HCL 150 MG TABLET (FP) PO SCH (21:49)
[2017-06-24] MEDS: ACETAMINOPHEN 325 MG TABLET (FP) PO PRN (23:11)
[2017-06-25] MEDS: HEPARIN NA (PORCINE) 5,000 UNITS/ML 1ML VIAL SQ SCH ×3 (06:13→21:30)
[2017-06-25] MEDS: INSULIN (NOVOLOG) ASPART 100 UNITS/ML 10ML VIAL SQ SCH ×3 (06:21→17:03)
[2017-06-25] MEDS: INSULIN DETEMIR 100 UNITS/ML MDV SQ SCH (06:21)
[2017-06-25] MEDS: LEVOTHYROXINE NA 25 MCG TABLET (FP) PO SCH (06:21)
[2017-06-25 07:15] LABS: MCH 24.8 pg (25.7-33.7); MCHC 31.6 g/dl (32.0-36.0); MEAN CELL VOLUME 78.2 fl (80-96); MEAN PLT VOLUME 9.2 fl (7.5-11.1); PLATELET COUNT 262 K/MM3 (134-434); RDW 13.5 % (11.6-15.6); WHITE BLOOD COUNT 8.5 K/mm3 (4.0-10.0)
[2017-06-25 08:24] LABS: ALBUMIN 3.2 g/dl (3.4-5.0); ALK PHOS 81 U/L (45-117); ANION GAP 8 (8-16); BILIRUBIN,TOTAL 0.3 mg/dL (0.2-1.0); CALCIUM 8.5 mg/dL (8.5-10.1); CO2 24 mmol/L (21-32); CREATININE 1.1 mg/dL (0.55-1.02); GLUCOSE,RANDOM 233 mg/dL (74-106); SGOT/AST 8 U/L (15-37); SGPT/ALT 15 U/L (12-78); TOT PROT 7.3 g/dl (6.4-8.2)
[2017-06-25] MEDS: LIPASE/PROTEASE/AMYLASE 36,000 UNIT CAPSULE PO SCH ×3 (08:44→16:53)
[2017-06-25] MEDS ORDERED: PT OWN MED DRAWER 7, Y5N ONE (08:51)
--- NOTE | 2017-06-25 08:56 | FALL ---
Fall Exam - Event Witnessed fall: Yes Location of Fall: Patient Room Fall from: While ambulating - Pre-Fall Fall Risk: At Risk Mental Status: Alert, Oriented, Cooperative Current Medications: Current Medications Generic Name Dose Route Start Last Admin Trade Name Freq PRN Reason Stop Dose Admin Acetaminophen 650 mg 06/23/17 17:02 06/24/17 23:11 Tylenol - PO 650 mg Q6H PRN Administration FEVER OR PAIN Albuterol Sulfate 1 amp 06/24/17 12:12 06/24/17 21:35 Ventolin 0.083% Nebulizer Soln - NEB 1 amp Q6H PRN Administration SHORT OF BREATH/WHEEZING Aspirin 325 mg 06/24/17 10:00 06/24/17 09:04 Ecotrin - PO Not Given DAILY [facility] Clonazepam 0.5 mg 06/23/17 17:01 06/24/17 21:49 Klonopin - PO 0.5 mg BID PRN Administration ANXIETY Fluoxetine HCl 40 mg 06/25/17 10:00 Prozac - PO DAILY [facility] Gabapentin 900 mg 06/24/17 22:00 06/24/17 21:49 Neurontin - PO 900 mg HS SHAUN Administration Gabapentin 600 mg 06/24/17 16:00 06/24/17 17:16 Neurontin - PO 600 mg BID@0800,1600 [facility] Administration Heparin Sodium (Porcine) 5,000 unit 06/23/17 14:00 06/25/17 06:13 Heparin - SQ Not Given TID [facility] Insulin Aspart 15 units 06/24/17 07:00 06/25/17 06:21 Novolog Vial SQ 15 units TIDAC [facility] Administration Insulin Detemir 50 units 06/24/17 07:00 06/25/17 06:21 Levemir Vial SQ 50 units DAILY@0700 [facility] Administration Levothyroxine Sodium 25 mcg 06/23/17 17:30 06/25/17 06:21 Synthroid - PO 25 mcg DAILY@0700 [facility] Administration Lisinopril 10 mg 06/24/17 10:00 06/24/17 09:04 Prinivil PO Not Given DAILY [facility] Liraglutide(Victoza) 0 each 06/24/17 12:00 06/24/17 12:34 0.6mg/0.1ml Pen SQ 1.8 each DAILY@1200 [facility] Administration Oxycodone HCl 5 mg 06/24/17 12:11 06/24/17 23:12 Roxicodone - PO 5 mg Q6H PRN Administration PAIN Pancrelipase 1 cap 06/23/17 17:30 06/24/17 16:50 Jose Woo 36,000 Units Capsule PO Not Given TIDCM SHAUN Ranitidine HCl 150 mg 06/23/17 22:00 06/24/17 21:49 Zantac - PO 150 mg HS SHAUN Administration Topiramate 100 mg 06/24/17 10:27 06/24/17 21:49 Topamax - PO 100 mg BID [facility] Administration Zolpidem Tartrate 5 mg 06/23/17 22:00 Ambien - PO HS PRN INSOMNIA - Post-Fall Patient Outcome: No Injury Treatment: None Vital Signs: Vital Signs Temperature 98.2 F 06/25/17 05:00 Pulse Rate 78 06/25/17 05:00 Respiratory Rate 20 06/25/17 05:00 Blood Pressure 113/74 06/25/17 05:00 O2 Sat by Pulse Oximetry (%) 99 06/24/17 21:00 LOC Post-Fall: Unchanged Identify factors for HIGH RISK for Head Injury: None of the above
--- NOTE | 2017-06-25 08:57 | PN ---
Progress Note (short form) - Note Progress Note: Subjective: The patient was seen and examined at the bedside, she states she was ambulating from the bathroom and "passed out" and feel to the ground. She states she does not remember anything, but that when she was woken up by the nurse, she was very dizzy. The neighbor who witnessed the fall states the patient was talking throughout and did not lose consciousness. Telemonitoring during the incident showed sinus tachycardia Normal post fall exam, no tenderness to bones or joints Current Medications Generic Name Dose Route Start Last Admin Trade Name Freq PRN Reason Stop Dose Admin Acetaminophen 650 mg 06/23/17 17:02 06/24/17 23:11 Tylenol - PO 650 mg Q6H PRN Administration FEVER OR PAIN Albuterol Sulfate 1 amp 06/24/17 12:12 06/24/17 21:35 Ventolin 0.083% Nebulizer Soln - NEB 1 amp Q6H PRN Administration SHORT OF BREATH/WHEEZING Aspirin 325 mg 06/24/17 10:00 06/24/17 09:04 Ecotrin - PO Not Given DAILY [facility] Clonazepam 0.5 mg 06/23/17 17:01 06/24/17 21:49 Klonopin - PO 0.5 mg BID PRN Administration ANXIETY Fluoxetine HCl 40 mg 06/25/17 10:00 Prozac - PO DAILY [facility] Gabapentin 900 mg 06/24/17 22:00 06/24/17 21:49 Neurontin - PO 900 mg HS SHAUN Administration Gabapentin 600 mg 06/24/17 16:00 06/24/17 17:16 Neurontin - PO 600 mg BID@0800,1600 [facility] Administration Heparin Sodium (Porcine) 5,000 unit 06/23/17 14:00 06/25/17 06:13 Heparin - SQ Not Given TID [facility] Insulin Aspart 15 units 06/24/17 07:00 06/25/17 06:21 Novolog Vial SQ 15 units TIDAC [facility] Administration Insulin Detemir 50 units 06/24/17 07:00 06/25/17 06:21 Levemir Vial SQ 50 units DAILY@0700 [facility] Administration Levothyroxine Sodium 25 mcg 06/23/17 17:30 06/25/17 06:21 Synthroid - PO 25 mcg DAILY@0700 [facility] Administration Lisinopril 10 mg 06/24/17 10:00 06/24/17 09:04 Prinivil PO Not Given DAILY [facility] Meclizine HCl 12.5 mg 06/25/17 08:57 Antivert - PO Q6H PRN VERTIGO Liraglutide(Victoza) 0 each 06/24/17 12:00 06/24/17 12:34 0.6mg/0.1ml Pen SQ 1.8 each DAILY@1200 [facility] Administration Oxycodone HCl 5 mg 06/24/17 12:11 06/24/17 23:12 Roxicodone - PO 5 mg Q6H PRN Administration PAIN Pancrelipase 1 cap 06/23/17 17:30 06/24/17 16:[address] 36,000 Units Capsule PO Not Given TIDCM SHAUN Ranitidine HCl 150 mg 06/23/17 22:00 06/24/17 21:49 Zantac - PO 150 mg HS SHAUN Administration Topiramate 100 mg 06/24/17 10:27 06/24/17 21:49 Topamax - PO 100 mg BID SHAUN Administration Zolpidem Tartrate 5 mg 06/23/17 22:00 Ambien - PO HS PRN INSOMNIA Objective: Vital Signs Period Temp Pulse Resp BP Sys/Giron Pulse Ox Last 24 Hr 97.7 F-98.7 F 78-98 18-20 107-122/59-75 99 Physical Exam: GENERAL: Awake, alert, and fully oriented, in no acute distress. Morbidly obese LUNGS: Breath sounds equal, clear to auscultation bilaterally. No wheezes, and no crackles. No accessory muscle use. HEART: Regular rate and rhythm, normal S1 and S2 without murmur, rub or gallop. ABDOMEN: Soft, nontender, not distended, normoactive bowel sounds, no guarding, no rebound, no masses. No hepatomegaly or splenomegaly. MUSCULOSKELETAL: Normal range of motion at all joints. No bony deformities or tenderness. No CVA tenderness. UPPER EXTREMITIES: 2+ pulses, warm, well-perfused. No cyanosis. No clubbing. No peripheral edema. LOWER EXTREMITIES: 2+ pulses, warm, well-perfused. No calf tenderness. No peripheral edema. NEUROLOGICAL: Cranial nerves II-XII intact. Normal speech. Gait not observed PSYCHIATRIC: Cooperative. Good eye contact. Appropriate mood and affect. SKIN: Warm, dry, normal turgor, no rashes or lesions noted, normal capillary refill. CBCD WBC 8.5 K/mm3 (4.0-10.0) 06/25/17 05:42 RBC 4.41 M/mm3 (3.60-5.2) 06/25/17 05:42 Hgb 10.9 GM/dL (10.7-15.3) 06/25/17 05:42 Hct 34.5 % (32.4-45.2) 06/25/17 05:42 MCV 78.2 fl (80-96) L 06/25/17 05:42 MCHC 31.6 g/dl (32.0-36.0) L 06/25/17 05:42 RDW 13.5 % (11.6-15.6) 06/25/17 05:42 Plt Count 262 K/MM3 (134-434) 06/25/17 05:42 MPV 9.2 fl (7.5-11.1) 06/25/17 05:42 CMP Sodium 140 mmol/L (136-145) 06/25/17 05:42 Potassium 4.3 mmol/L (3.5-5.1) 06/25/17 05:42 Chloride 108 mmol/L (98-107) H 06/25/17 05:42 Carbon Dioxide 24 mmol/L (21-32) 06/25/17 05:42 Anion Gap 8 (8-16) 06/25/17 05:42 BUN 16 mg/dL (7-18) D 06/25/17 05:42 Creatinine 1.1 mg/dL (0.55-1.02) H D 06/25/17 05:42 Creat Clearance w eGFR 52.79 (>60) 06/25/17 05:42 Random Glucose 233 mg/dL (74-106) H D 06/25/17 05:42 Calcium 8.5 mg/dL (8.5-10.1) 06/25/17 05:42 Total Bilirubin 0.3 mg/dL (0.2-1.0) D 06/25/17 05:42 AST 8 U/L (15-37) L 06/25/17 05:42 ALT 15 U/L (12-78) 06/25/17 05:42 Alkaline Phosphatase 81 U/L (45-117) 06/25/17 05:42 Total Protein 7.3 g/dl (6.4-8.2) 06/25/17 05:42 Albumin 3.2 g/dl (3.4-5.0) L 06/25/17 05:42 CARDIAC ENZYMES Creatine Kinase 58 IU/L (26-192) 06/23/17 16:45 Troponin I < 0.02 ng/ml (0.00-0.05) 06/23/17 16:45 Assessment: This is a 51 year old female with PMHx of HTN, DM, HCV (treated with harvoni 2015), CVA, cirrhosis, anxiety, morbidly obese, who presented to the ED with syncope. Plan: 1) Syncope - Fall today that the patient reports was a syncopal episode - Recurrent, episode in 2014, all workup normal, recommended outpatient tilt- table test. Patient is unaware if she had it done - Carotid dopplers with no evidence of high grade stenosis - ECHO with technically difficult study. Regional wall motion abnormalities, LV not well visualized, mild MR, mild TR, insufficient TR detected to calculate RVSP, no pericardial effusion, aortic valve is no well visualized - Trops negative x2 - HgbA1c 05/05/17: 8.9 - Lipid panel reviewed - TSH 2.92 - F/u neurology consult: will need EEG - Appreciate cardiology consult: will likely need tilt table test as outpatient if she has not already gotten it 2) Insulin dependent diabetes - BGM ACHS - Novolog 15u sq tidac - Levemir 50u sq daily - Victoza 1.8u sq at 12pm daily - Continue to monitor 3) HTN - Continue Lisinopril - Continue to monitor 4) Sleep apnea - Patient reports does not use c-pap at home, f/u sleep study (performed last night) - Appreciate pulmonary consult 5) Anxiety: - Continue Clonazepam - Resume Prozac 6) F/E/N - Diabetic diet - Monitor electrolytes 7) Prophylaxis: - Zantac 150mg po hs - SCDs bilaterally 8) Dispo: - Awaiting cardiology evaluation CODE STATUS: FULL CODE Visit type - Emergency Visit Emergency Visit: Yes ED Registration Date: 06/23/17 Care time: The patient presented to the Emergency Department on the above date and was hospitalized for further evaluation of their emergent condition. - New Patient This patient is new to me today: No - Critical Care Critical Care patient: No
[2017-06-25] MEDS: GABAPENTIN 300 MG CAPSULE (FP) PO SCH ×3 (09:10→21:37)
[2017-06-25] MEDS: MECLIZINE HCL 12.5 MG TABLET PO PRN ×3 (10:00→21:38)
--- NOTE | 2017-06-25 10:22 | PN ---
Progress Note, Physician Chief Complaint: Episode of dizziness and syncope early this AM History of Present Illness: Patient was seen and examined. Awake and alert at this time. Chart was reviewed Denies chest pain or SOB. Appears very anxious and occasional tremors - Current Medication List Current Medications: Active Medications Acetaminophen (Tylenol -) 650 mg PO Q6H PRN PRN Reason: FEVER OR PAIN Last Admin: 06/24/17 23:11 Dose: 650 mg Albuterol Sulfate (Ventolin 0.083% Nebulizer Soln -) 1 amp NEB Q6H PRN PRN Reason: SHORT OF BREATH/WHEEZING Last Admin: 06/24/17 21:35 Dose: 1 amp Aspirin (Ecotrin -) 325 mg PO DAILY [facility] Last Admin: 06/24/17 09:04 Dose: Not Given Clonazepam (Klonopin -) 0.5 mg PO BID PRN PRN Reason: ANXIETY Last Admin: 06/24/17 21:49 Dose: 0.5 mg Fluoxetine HCl (Prozac -) 40 mg PO DAILY [facility] Gabapentin (Neurontin -) 900 mg PO HS [facility] Last Admin: 06/24/17 21:49 Dose: 900 mg Gabapentin (Neurontin -) 600 mg PO BID@0800,1600 [facility] Last Admin: 06/24/17 17:16 Dose: 600 mg Heparin Sodium (Porcine) (Heparin -) 5,000 unit SQ TID [facility] Last Admin: 06/25/17 06:13 Dose: Not Given Insulin Aspart (Novolog Vial) 15 units SQ TIDAC [facility] Last Admin: 06/25/17 06:21 Dose: 15 units Insulin Detemir (Levemir Vial) 50 units SQ DAILY@0700 [facility] Last Admin: 06/25/17 06:21 Dose: 50 units Levothyroxine Sodium (Synthroid -) 25 mcg PO DAILY@0700 [facility] Last Admin: 06/25/17 06:21 Dose: 25 mcg Lisinopril (Prinivil) 10 mg PO DAILY [facility] Last Admin: 06/24/17 09:04 Dose: Not Given Meclizine HCl (Antivert -) 12.5 mg PO Q6H PRN PRN Reason: VERTIGO Liraglutide(Victoza) (0.6mg/0.1ml Pen) 0 each SQ DAILY@1200 [facility] Last Admin: 06/24/17 12:34 Dose: 1.8 each Oxycodone HCl (Roxicodone -) 5 mg PO Q6H PRN PRN Reason: PAIN Last Admin: 06/24/17 23:12 Dose: 5 mg Pancrelipase (Creon Dr 36,000 Units Capsule) 1 cap PO TIDCM [facility] Last Admin: 06/24/17 16:50 Dose: Not Given Ranitidine HCl (Zantac -) 150 mg PO HS [facility] Last Admin: 06/24/17 21:49 Dose: 150 mg Topiramate (Topamax -) 100 mg PO BID [facility] Last Admin: 06/24/17 21:49 Dose: 100 mg Zolpidem Tartrate (Ambien -) 5 mg PO HS PRN PRN Reason: INSOMNIA - Objective Vital Signs: Vital Signs Temperature 98.2 F 06/25/17 05:00 Pulse Rate 78 06/25/17 05:00 Respiratory Rate 20 06/25/17 05:00 Blood Pressure 113/74 06/25/17 05:00 O2 Sat by Pulse Oximetry (%) 99 06/24/17 21:00 Neck: Yes: Supple Cardiovascular: Yes: Regular Rate and Rhythm, S1, S2 Respiratory: Yes: Diminished Gastrointestinal: Yes: Normal Bowel Sounds, Soft. No: Tenderness Edema: No Additional Findings/Remarks: - Review of Systems Constitutional: denies: Chills, Fever Cardiovascular: reports: Palpitations, Shortness of Breath. denies: Chest Pain Respiratory: reports: Cough, SOB. denies: Hemoptysis, Orthopnea, PND Gastrointestinal: denies: Abdominal Pain, Constipation, Diarrhea, Melena, Nausea , Rectal Bleeding, Vomiting Genitourinary: denies: Dysuria Neurological: reports: Dizziness, Syncope. denies: Headache, Numbness, Parasthesia, Seizure, Unsteady Gait, Weakness Labs: CBC, BMP 06/25/17 05:42 06/25/17 05:42 Problem List - Problems (1) Syncope Code(s): R55 - SYNCOPE AND COLLAPSE Qualifiers: Syncope type: unspecified Qualified Code(s): R55 - Syncope and collapse (2) Anxiety Code(s): F41.9 - ANXIETY DISORDER, UNSPECIFIED (3) Diabetes mellitus, insulin dependent (IDDM), uncontrolled Code(s): E10.65 - TYPE 1 DIABETES MELLITUS WITH HYPERGLYCEMIA (4) MARILU (obstructive sleep apnea) Code(s): G47.33 - OBSTRUCTIVE SLEEP APNEA (ADULT) (PEDIATRIC) Assessment/Plan 1. Recurrent syncope, etiology to be determined ?neurocardiogenic, ?seizure 2. Hypertension 3. Hypercholesterolemia 4. Diabetes mellitus - Insulin requiring 5. Morbid obesity with probable obstructive sleep apnea 6. Anxiety disorder (severe) 7. Hypothyroidism PLAN: 1. Continue current medical therapy including Prinivil and ASA (but consider baby ASA instead) 2. Transthoracic echocardiograpy result reviewed 3. Carotid Doppler result reviewed 4. Anxiety management 5. Obstructive sleep apnea needs to be addressed and possible CPAP if clinically indicated - current evaluation and treatment as per pulmonary service 6. Consider Tilt table test at some point Further plans are to follow Herberth Werner MD
[2017-06-25 10:35] LABS: INR 1.08 (0.82-1.09); PROTHROMBIN TIME (PATIENT) 12.2 SEC (9.98-11.88)
[2017-06-25 10:37] LABS: ACTIVATED PTT 31.8 SECONDS (26.9-34.4)
[2017-06-25] MEDS: FLUoxetine HCL 20 MG CAPSULE (FP) PO SCH (10:44)
[2017-06-25] MEDS: ASPIRIN 325 MG ENTERIC COATED TABLET (FP) PO SCH (10:45)
[2017-06-25] MEDS: LISINOPRIL 10 MG TABLET (FP) PO SCH (10:45)
[2017-06-25] MEDS: ALBUTEROL SO4 0.083% IH SOL 2.5 MG/3 ML VIAL.NEB. NEB PRN ×2 (10:45→19:56)
[2017-06-25] MEDS: TOPIRAMATE 100 MG TABLET PO SCH ×2 (10:45→21:36)
[2017-06-25] MEDS: oxyCODONE HCL 5 MG TABLET PO PRN ×2 (10:46→21:36)
--- NOTE | 2017-06-25 11:22 | CON.NEURO ---
Consult Consult Specialty:: Neurology Referred by:: Stefan MICHAEL Reason for Consultation:: Recurrent Syncope - History of Present Illness Chief Complaint: I got dizzy and passed out History of Present Illness: This is a 51 year old female with PMHx of HTN, DM, HCV (treated with harvoni 2015), "CVA", cirrhosis, anxiety, morbidly obese, who presented to the ED with syncope. The patient reports she started becoming more dizzy about 1 week ago and then yesterday she had a syncopal episode, but didn't want to be evaluated because it was Thanksgiving. She has had multiple episodes of syncope repeatedly over years and reports that she has been evaluated extensively for this. She was supposed to have a tilt table test in hte past but doesn't recall if she did. She says that her daughter has witnessed her shaking while unconscious in the past, and that at one point she was thought to have seizures , but as per her "they did an MRI or something and didn't find no seizures". She feels dizzy with a sense of spinning prior to syncopal event and feels dizzy afterwards as well. During one event witnessed here by her roommate the patient was said to be conversant throughout. 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 Cardio/Vascular: Yes: CAD, HTN, Hyperlipdemia Pulmonary: Yes: Sleep Apnea ...LMP: 08/19/14 Infectious Disease: Yes: Other (Hep C) Psych: Yes: Anxiety Endocrine: Yes: Diabetes Mellitus - Past Surgical History Past Surgical History: Yes: - Alcohol/Substance Use Hx Alcohol Use: No - Smoking History Smoking history: Former smoker Have you smoked in the past 12 months: No If you are a former smoker, when did you quit?: 04/28/15 - Social History Usual Living Arrangement: Alone ADL: Independent History of Recent Travel: No Home Medications - Allergies Allergies/Adverse Reactions: Allergies Allergy/AdvReac Type Severity Reaction Status Date / Time Iodinated Contrast- Oral and Allergy Intermediate Itching Verified 06/23/17 09: 55 IV Dye [Iodinated Contrast Media - IV Dye] tramadol AdvReac Verified 06/23/17 09:55 - Home Medications Home Medications: Ambulatory Orders Fluoxetine HCl [Prozac -] 40 mg PO DAILY 09/15/14 Gabapentin [Neurontin -] 600 mg PO BID 09/15/14 [place]-3 Fatty Acids [[place]-3] 1,000 mg PO BID 09/15/14 Albuterol Sulfate Inhaler - [Ventolin HFA Inhaler -] 1 - 2 inh PO QID 03/15/16 Gabapentin 900 mg PO HS 03/15/17 Insulin Glargine,Hum.rec.anlog [Lantus Solostar PEN -] 50 units SQ AM 03/15/17 Liraglutide [Victoza -] 1.8 mg SQ DAILY@1200 03/15/17 Lisinopril 10 mg PO DAILY 03/15/17 Topiramate [Topamax] 100 mg PO BID 03/15/17 Clonazepam [Klonopin -] 0.5 mg PO BID PRN 05/12/17 Hydrocodone/Acetaminophen [[place] 10-325 Tablet] 1 each PO BID PRN #60 tablet MDD 2 06/14/17 Family Disease History - Family Disease History Family Disease History: Diabetes: Brother, Sister, Other: Daughter Review of Systems - Review of Systems Cardiovascular: reports: Shortness of Breath Gastrointestinal: reports: Nausea, Vomiting Neurological: reports: Dizziness Endocrine: reports: Other (obesity) Hematology/Lymphatic: reports: No Symptoms Psychiatric: reports: Anxiety Physical Exam-Neuro Vital Signs: Vital Signs Temperature 98.2 F 06/25/17 05:00 Pulse Rate 78 06/25/17 05:00 Respiratory Rate 20 06/25/17 05:00 Blood Pressure 113/74 06/25/17 05:00 O2 Sat by Pulse Oximetry (%) 99 06/24/17 21:00 Constitutional: Yes: Obese Neck: Yes: WNL, Supple Musculoskeletal: Yes: WNL Psychiatric: Yes: Alert, Oriented Labs: CBC, BMP 06/25/17 05:42 06/25/17 05:42 INR, PTT INR 1.08 (0.82-1.09) 06/25/17 09:55 - Neuro Exam Level Of Consciousness: Yes: Alert, Oriented to Person, Oriented to Place, Oriented to Time Speech: WNL Cranial Nerves II-XII Intact: Yes DTR's: 2+ Left Bicep, 2+ Right Bicep, 2+ Left Tricep, 2+ Right Tricep, 2+ Left Brachioradialis, 2+ Right Brachioradialis Babinski: Absent Response to light touch: Normal Coordination: Normal: Finger to Nose, Heel to [place] Motor Strength: 5/5: Left Arm, Right Arm, Left Leg, Right Leg (no pronator drift ) Gait: Normal Imaging - Results Cat Scan: Report Reviewed, Image Reviewed (No acute pathology) Ultrasound: Report Reviewed (Carotid doppler no hemodynamically significant stenosis) Problem List - Problems (1) Syncope Code(s): R55 - SYNCOPE AND COLLAPSE Qualifiers: Syncope type: unspecified Qualified Code(s): R55 - Syncope and collapse Assessment/Plan Recurrent syncope of unclear etiology. Report of shaking during some of these events could suggest seizures, but sometimes patients also can have seizures due to hypoxia during the syncope (syncopal seizures) and the syncope is primary. I'd recommend getting an EEG. Tilt table test should also be performed. If the EEG is negative, at some point she might benefit from prolonged monitoring, either inpatient or ambulatory. Thanks.
[2017-06-25] MEDS: LIRAGLUTIDE 0.6 MG/0.1 ML SQ SCH (11:33)
--- NOTE | 2017-06-25 12:59 | PN ---
Progress Note (short form) - Note Progress Note: Feels ok today. No CP or SOB. No acute events overnight. Sleep screen : 0.8. Likely a false (-). Intake & Output 06/22/17 06/23/17 06/24/17 06/25/17 23:59 23:59 23:59 23:59 Intake Total 240 350 Balance 240 350 Weight 226 lb Last Vital Signs Temp Pulse Resp BP Pulse Ox 98.2 F 78 20 113/74 99 06/25/17 05:00 06/25/17 05:00 06/25/17 05:00 06/25/17 05:00 06/24/17 21:00 Active Medications Acetaminophen (Tylenol -) 650 mg PO Q6H PRN PRN Reason: FEVER OR PAIN Last Admin: 06/24/17 23:11 Dose: 650 mg Albuterol Sulfate (Ventolin 0.083% Nebulizer Soln -) 1 amp NEB Q6H PRN PRN Reason: SHORT OF BREATH/WHEEZING Last Admin: 06/25/17 10:45 Dose: 1 amp Aspirin (Ecotrin -) 325 mg PO DAILY [facility] Last Admin: 06/25/17 10:45 Dose: 325 mg Clonazepam (Klonopin -) 0.5 mg PO BID PRN PRN Reason: ANXIETY Last Admin: 06/24/17 21:49 Dose: 0.5 mg Fluoxetine HCl (Prozac -) 40 mg PO DAILY [facility] Last Admin: 06/25/17 10:44 Dose: 40 mg Gabapentin (Neurontin -) 900 mg PO HS [facility] Last Admin: 06/24/17 21:49 Dose: 900 mg Gabapentin (Neurontin -) 600 mg PO BID@0800,1600 [facility] Last Admin: 06/25/17 08:45 Dose: 600 mg Heparin Sodium (Porcine) (Heparin -) 5,000 unit SQ TID [facility] Last Admin: 06/25/17 06:13 Dose: Not Given Insulin Aspart (Novolog Vial) 15 units SQ TIDAC [facility] Last Admin: 06/25/17 11:32 Dose: Not Given Insulin Detemir (Levemir Vial) 50 units SQ DAILY@0700 [facility] Last Admin: 06/25/17 06:21 Dose: 50 units Levothyroxine Sodium (Synthroid -) 25 mcg PO DAILY@0700 [facility] Last Admin: 06/25/17 06:21 Dose: 25 mcg Lisinopril (Prinivil) 10 mg PO DAILY [facility] Last Admin: 06/25/17 10:45 Dose: 10 mg Meclizine HCl (Antivert -) 12.5 mg PO Q6H PRN PRN Reason: VERTIGO Last Admin: 06/25/17 10:46 Dose: 12.5 mg Liraglutide(Victoza) (0.6mg/0.1ml Pen) 0 each SQ DAILY@1200 [facility] Last Admin: 06/25/17 11:33 Dose: 1.8 each Oxycodone HCl (Roxicodone -) 5 mg PO Q6H PRN PRN Reason: PAIN Last Admin: 06/25/17 10:46 Dose: 5 mg Pancrelipase (Creon Dr 36,000 Units Capsule) 1 cap PO TIDCM [facility] Last Admin: 06/25/17 12:22 Dose: Not Given Ranitidine HCl (Zantac -) 150 mg PO HS [facility] Last Admin: 06/24/17 21:49 Dose: 150 mg Topiramate (Topamax -) 100 mg PO BID [facility] Last Admin: 06/25/17 10:45 Dose: 100 mg Zolpidem Tartrate (Ambien -) 5 mg PO HS PRN PRN Reason: INSOMNIA Constitutional: Yes: No Distress, Obese Eyes: Yes: Conjunctiva Clear, EOM Intact HENT: Yes: Atraumatic, Normocephalic, Tonsillar Exudate Neck: Yes: Supple Cardiovascular: Yes: Regular Rate and Rhythm Respiratory: Yes: CTA Bilaterally. No: Rales, Stridor, Tachypnea, Wheezes ...Inspection: Yes: WNL ...Clubbing: No Gastrointestinal: Yes: Normal Bowel Sounds, Soft, Abdomen, Obese Renal/: Yes: WNL Musculoskeletal: Yes: WNL Extremities: Yes: WNL Edema: No Peripheral Pulses WNL: Yes Integumentary: Yes: WNL Neurological: Yes: WNL, Alert, Oriented ...Motor Strength: WNL Psychiatric: Yes: WNL, Alert, Oriented Labs: Laboratory Results - last 24 hr 06/25/17 06/25/17 06/25/17 05:42 05:42 06:13 WBC 8.5 RBC 4.41 Hgb 10.9 Hct 34.5 MCV 78.2 L MCH 24.8 L MCHC 31.6 L RDW 13.5 Plt Count 262 MPV 9.2 Manual Slide Review No Result Required. PT with INR INR PTT (Actin FS) Sodium 140 Potassium 4.3 Chloride 108 H Carbon Dioxide 24 Anion Gap 8 BUN 16 D Creatinine 1.1 H D Creat Clearance w eGFR 52.79 POC Glucometer 212 Random Glucose 233 H D Calcium 8.5 Total Bilirubin 0.3 D AST 8 L ALT 15 Alkaline Phosphatase 81 Total Protein 7.3 Albumin 3.2 L 06/25/17 06/25/17 08:31 09:55 WBC RBC Hgb Hct MCV MCH MCHC RDW Plt Count MPV Manual Slide Review PT with INR 12.20 H INR 1.08 PTT (Actin FS) 31.8 Sodium Potassium Chloride Carbon Dioxide Anion Gap BUN Creatinine Creat Clearance w eGFR POC Glucometer 214 Random Glucose Calcium Total Bilirubin AST ALT Alkaline Phosphatase Total Protein Albumin Problem List - Problems (1) Syncope Code(s): R55 - SYNCOPE AND COLLAPSE Qualifiers: Syncope type: unspecified Qualified Code(s): R55 - Syncope and collapse (2) Hyperglycemia Code(s): R73.9 - HYPERGLYCEMIA, UNSPECIFIED (3) Anxiety Code(s): F41.9 - ANXIETY DISORDER, UNSPECIFIED (4) Back pain with right-sided radiculopathy Code(s): M54.10 - RADICULOPATHY, SITE UNSPECIFIED (5) Bipolar disorder Code(s): F31.9 - BIPOLAR DISORDER, UNSPECIFIED (6) Diabetes mellitus, insulin dependent (IDDM), uncontrolled Code(s): E10.65 - TYPE 1 DIABETES MELLITUS WITH HYPERGLYCEMIA (7) MARILU (obstructive sleep apnea) Code(s): G47.33 - OBSTRUCTIVE SLEEP APNEA (ADULT) (PEDIATRIC) Assessment/Plan Should have formal NPSG after discharge to rule out other forms of sleep apnea given her extensive medical history (ie CSA) O2 as needed BD [place] PRN (?) Bariatric surgery evaluation Syncope workup VTE prophylaxis Dr Leija Problem List - Problems (1) Syncope Code(s): R55 - SYNCOPE AND COLLAPSE Qualifiers: Syncope type: unspecified Qualified Code(s): R55 - Syncope and collapse (2) Hyperglycemia Code(s): R73.9 - HYPERGLYCEMIA, UNSPECIFIED (3) Anxiety Code(s): F41.9 - ANXIETY DISORDER, UNSPECIFIED (4) Back pain with right-sided radiculopathy Code(s): M54.10 - RADICULOPATHY, SITE UNSPECIFIED (5) Bipolar disorder Code(s): F31.9 - BIPOLAR DISORDER, UNSPECIFIED (6) Diabetes mellitus, insulin dependent (IDDM), uncontrolled Code(s): E10.65 - TYPE 1 DIABETES MELLITUS WITH HYPERGLYCEMIA (7) MARILU (obstructive sleep apnea) Code(s): G47.33 - OBSTRUCTIVE SLEEP APNEA (ADULT) (PEDIATRIC)
[2017-06-25] MEDS: RANITIDINE HCL 150 MG TABLET (FP) PO SCH (21:37)
[2017-06-26] MEDS: HEPARIN NA (PORCINE) 5,000 UNITS/ML 1ML VIAL SQ SCH ×3 (06:19→22:35)
[2017-06-26] MEDS: INSULIN (NOVOLOG) ASPART 100 UNITS/ML 10ML VIAL SQ SCH ×3 (06:32→17:22)
[2017-06-26] MEDS: INSULIN DETEMIR 100 UNITS/ML MDV SQ SCH (06:32)
[2017-06-26] MEDS: LEVOTHYROXINE NA 25 MCG TABLET (FP) PO SCH (06:32)
[2017-06-26 07:04] LABS: MCH 25.1 pg (25.7-33.7); MCHC 32.1 g/dl (32.0-36.0); MEAN CELL VOLUME 78.2 fl (80-96); MEAN PLT VOLUME 9.3 fl (7.5-11.1); PLATELET COUNT 273 K/MM3 (134-434); RDW 13.5 % (11.6-15.6); WHITE BLOOD COUNT 8.7 K/mm3 (4.0-10.0)
[2017-06-26 07:19] LABS: ALBUMIN 3.3 g/dl (3.4-5.0); ANION GAP 7 (8-16); BILIRUBIN,TOTAL 0.3 mg/dL (0.2-1.0); CALCIUM 8.7 mg/dL (8.5-10.1); CO2 26 mmol/L (21-32); GLUCOSE,RANDOM 214 mg/dL (74-106); SGOT/AST 9 U/L (15-37); SGPT/ALT 17 U/L (12-78); TOT PROT 7.3 g/dl (6.4-8.2)
[2017-06-26 07:20] LABS: ALK PHOS 85 U/L (45-117)
[2017-06-26] MEDS: LIPASE/PROTEASE/AMYLASE 36,000 UNIT CAPSULE PO SCH ×3 (08:34→17:22)
[2017-06-26] MEDS: ACETAMINOPHEN 325 MG TABLET (FP) PO PRN ×2 (08:35→19:34)
[2017-06-26] MEDS: oxyCODONE HCL 5 MG TABLET PO PRN ×2 (08:35→19:33)
[2017-06-26] MEDS: GABAPENTIN 300 MG CAPSULE (FP) PO SCH ×3 (08:57→22:35)
[2017-06-26] MEDS: MECLIZINE HCL 12.5 MG TABLET PO PRN (08:58)
[2017-06-26] MEDS: ASPIRIN 325 MG ENTERIC COATED TABLET (FP) PO SCH (10:14)
[2017-06-26] MEDS: TOPIRAMATE 100 MG TABLET PO SCH ×2 (10:15→22:35)
[2017-06-26] MEDS: LISINOPRIL 10 MG TABLET (FP) PO SCH (10:15)
[2017-06-26] MEDS: FLUoxetine HCL 20 MG CAPSULE (FP) PO SCH (10:15)
--- NOTE | 2017-06-26 10:40 | PN ---
Progress Note, Physician History of Present Illness: pulmonary alert,c/o sob,chest tightness,+ left sided pleuritic cp,-cough - Current Medication List Current Medications: Active Medications Acetaminophen (Tylenol -) 650 mg PO Q6H PRN PRN Reason: FEVER OR PAIN Last Admin: 06/26/17 08:35 Dose: 650 mg Albuterol Sulfate (Ventolin 0.083% Nebulizer Soln -) 1 amp NEB Q6H PRN PRN Reason: SHORT OF BREATH/WHEEZING Last Admin: 06/25/17 19:56 Dose: 1 amp Aspirin (Ecotrin -) 325 mg PO DAILY [facility] Last Admin: 06/26/17 10:14 Dose: 325 mg Clonazepam (Klonopin -) 0.5 mg PO BID PRN PRN Reason: ANXIETY Last Admin: 06/24/17 21:49 Dose: 0.5 mg Fluoxetine HCl (Prozac -) 40 mg PO DAILY [facility] Last Admin: 06/26/17 10:15 Dose: 40 mg Gabapentin (Neurontin -) 900 mg PO HS [facility] Last Admin: 06/25/17 21:37 Dose: 900 mg Gabapentin (Neurontin -) 600 mg PO BID@0800,1600 [facility] Last Admin: 06/26/17 08:57 Dose: 600 mg Heparin Sodium (Porcine) (Heparin -) 5,000 unit SQ TID [facility] Last Admin: 06/26/17 06:19 Dose: Not Given Insulin Aspart (Novolog Vial) 15 units SQ TIDAC [facility] Last Admin: 06/26/17 06:32 Dose: 15 units Insulin Detemir (Levemir Vial) 50 units SQ DAILY@0700 [facility] Last Admin: 06/26/17 06:32 Dose: 50 units Levothyroxine Sodium (Synthroid -) 25 mcg PO DAILY@0700 [facility] Last Admin: 06/26/17 06:32 Dose: 25 mcg Lisinopril (Prinivil) 10 mg PO DAILY [facility] Last Admin: 06/26/17 10:15 Dose: 10 mg Meclizine HCl (Antivert -) 12.5 mg PO Q6H PRN PRN Reason: VERTIGO Last Admin: 06/26/17 08:58 Dose: 12.5 mg Liraglutide(Victoza) (0.6mg/0.1ml Pen) 0 each SQ DAILY@1200 [facility] Last Admin: 06/25/17 11:33 Dose: 1.8 each Oxycodone HCl (Roxicodone -) 5 mg PO Q6H PRN PRN Reason: PAIN Last Admin: 06/26/17 08:35 Dose: 5 mg Pancrelipase (Creon Dr 36,000 Units Capsule) 1 cap PO TIDCM [facility] Last Admin: 06/26/17 08:34 Dose: Not Given Ranitidine HCl (Zantac -) 150 mg PO HS [facility] Last Admin: 06/25/17 21:37 Dose: 150 mg Topiramate (Topamax -) 100 mg PO BID [facility] Last Admin: 06/26/17 10:15 Dose: 100 mg Zolpidem Tartrate (Ambien -) 5 mg PO HS PRN PRN Reason: INSOMNIA - Objective Vital Signs: Vital Signs Temperature 98.6 F 06/26/17 10:07 Pulse Rate 109 H 06/26/17 10:07 Respiratory Rate 18 06/26/17 10:07 Blood Pressure 116/77 06/26/17 10:07 O2 Sat by Pulse Oximetry (%) 100 06/25/17 21:00 Constitutional: Yes: Well Nourished, Calm Eyes: Yes: WNL HENT: Yes: WNL Neck: Yes: WNL Cardiovascular: Yes: Regular Rate and Rhythm, S1, S2 Respiratory: Yes: Wheezes (few wheezes) Gastrointestinal: Yes: Normal Bowel Sounds, Soft Extremities: Yes: WNL Edema: No Labs: CBC, BMP 06/26/17 06:35 06/26/17 06:35 INR, PTT INR 1.08 (0.82-1.09) 06/25/17 09:55 [facility] - Problems (1) Syncope Code(s): R55 - SYNCOPE AND COLLAPSE Qualifiers: Syncope type: unspecified Qualified Code(s): R55 - Syncope and collapse (2) Hyperglycemia Code(s): R73.9 - HYPERGLYCEMIA, UNSPECIFIED (3) Anxiety Code(s): F41.9 - ANXIETY DISORDER, UNSPECIFIED (4) Back pain with right-sided radiculopathy Code(s): M54.10 - RADICULOPATHY, SITE UNSPECIFIED (5) Bipolar disorder Code(s): F31.9 - BIPOLAR DISORDER, UNSPECIFIED (6) Diabetes mellitus, insulin dependent (IDDM), uncontrolled Code(s): E10.65 - TYPE 1 DIABETES MELLITUS WITH HYPERGLYCEMIA (7) MARILU (obstructive sleep apnea) Code(s): G47.33 - OBSTRUCTIVE SLEEP APNEA (ADULT) (PEDIATRIC) Assessment/Plan Should have formal NPSG after discharge to rule out other forms of sleep apnea given her extensive medical history (ie CSA) O2 as needed BD TX PRN (?) Bariatric surgery evaluation VTE prophylaxis Pfts outpatient d-dimer DR LOU
--- NOTE | 2017-06-26 10:44 | PN ---
Progress Note, Physician Chief Complaint: Episode of pleuritic left sided chest pain Appears very anxious History of Present Illness: Patient was seen and examined. Awake and alert at this time. Chart was reviewed Denies SOB. Appears very anxious and had an episode of left sided pleuritic sharp chest discomfort - Current Medication List Current Medications: Active Medications Acetaminophen (Tylenol -) 650 mg PO Q6H PRN PRN Reason: FEVER OR PAIN Last Admin: 06/26/17 08:35 Dose: 650 mg Albuterol Sulfate (Ventolin 0.083% Nebulizer Soln -) 1 amp NEB Q6H PRN PRN Reason: SHORT OF BREATH/WHEEZING Last Admin: 06/25/17 19:56 Dose: 1 amp Aspirin (Ecotrin -) 325 mg PO DAILY [facility] Last Admin: 06/26/17 10:14 Dose: 325 mg Clonazepam (Klonopin -) 0.5 mg PO BID PRN PRN Reason: ANXIETY Last Admin: 06/24/17 21:49 Dose: 0.5 mg Fluoxetine HCl (Prozac -) 40 mg PO DAILY [facility] Last Admin: 06/26/17 10:15 Dose: 40 mg Gabapentin (Neurontin -) 900 mg PO HS [facility] Last Admin: 06/25/17 21:37 Dose: 900 mg Gabapentin (Neurontin -) 600 mg PO BID@0800,1600 [facility] Last Admin: 06/26/17 08:57 Dose: 600 mg Heparin Sodium (Porcine) (Heparin -) 5,000 unit SQ TID [facility] Last Admin: 06/26/17 06:19 Dose: Not Given Insulin Aspart (Novolog Vial) 15 units SQ TIDAC [facility] Last Admin: 06/26/17 06:32 Dose: 15 units Insulin Detemir (Levemir Vial) 50 units SQ DAILY@0700 [facility] Last Admin: 06/26/17 06:32 Dose: 50 units Levothyroxine Sodium (Synthroid -) 25 mcg PO DAILY@0700 [facility] Last Admin: 06/26/17 06:32 Dose: 25 mcg Lisinopril (Prinivil) 10 mg PO DAILY [facility] Last Admin: 06/26/17 10:15 Dose: 10 mg Meclizine HCl (Antivert -) 12.5 mg PO Q6H PRN PRN Reason: VERTIGO Last Admin: 06/26/17 08:58 Dose: 12.5 mg Liraglutide(Victoza) (0.6mg/0.1ml Pen) 0 each SQ DAILY@1200 [facility] Last Admin: 06/25/17 11:33 Dose: 1.8 each Oxycodone HCl (Roxicodone -) 5 mg PO Q6H PRN PRN Reason: PAIN Last Admin: 06/26/17 08:35 Dose: 5 mg Pancrelipase (Creon Dr 36,000 Units Capsule) 1 cap PO TIDCM [facility] Last Admin: 06/26/17 08:34 Dose: Not Given Ranitidine HCl (Zantac -) 150 mg PO HS [facility] Last Admin: 06/25/17 21:37 Dose: 150 mg Topiramate (Topamax -) 100 mg PO BID [facility] Last Admin: 06/26/17 10:15 Dose: 100 mg Zolpidem Tartrate (Ambien -) 5 mg PO HS PRN PRN Reason: INSOMNIA - Objective Vital Signs: Vital Signs Temperature 98.6 F 06/26/17 10:07 Pulse Rate 109 H 06/26/17 10:07 Respiratory Rate 18 06/26/17 10:07 Blood Pressure 116/77 06/26/17 10:07 O2 Sat by Pulse Oximetry (%) 100 06/25/17 21:00 Neck: Yes: Supple Cardiovascular: Yes: Regular Rate and Rhythm, Tachycardia, S1, S2 Respiratory: Yes: Diminished Gastrointestinal: Yes: Normal Bowel Sounds, Soft. No: Tenderness Edema: No Additional Findings/Remarks: - Review of Systems Constitutional: denies: Chills, Fever Cardiovascular: reports: Palpitations, Shortness of Breath. denies: Chest Pain Respiratory: reports: Cough, SOB. denies: Hemoptysis, Orthopnea, PND Gastrointestinal: denies: Abdominal Pain, Constipation, Diarrhea, Melena, Nausea , Rectal Bleeding, Vomiting Genitourinary: denies: Dysuria Neurological: reports: Dizziness, Syncope. denies: Headache, Numbness, Parasthesia, Seizure, Unsteady Gait, Weakness Labs: CBC, BMP 06/26/17 06:35 06/26/17 06:35 INR, PTT INR 1.08 (0.82-1.09) 06/25/17 09:55 Problem List - Problems (1) Syncope Code(s): R55 - SYNCOPE AND COLLAPSE Qualifiers: Syncope type: unspecified Qualified Code(s): R55 - Syncope and collapse (2) Anxiety Code(s): F41.9 - ANXIETY DISORDER, UNSPECIFIED (3) Diabetes mellitus, insulin dependent (IDDM), uncontrolled Code(s): E10.65 - TYPE 1 DIABETES MELLITUS WITH HYPERGLYCEMIA (4) MARILU (obstructive sleep apnea) Code(s): G47.33 - OBSTRUCTIVE SLEEP APNEA (ADULT) (PEDIATRIC) Assessment/Plan 1. Recurrent syncope, etiology to be determined ?neurocardiogenic 2. Hypertension 3. Hypercholesterolemia 4. Diabetes mellitus - Insulin requiring 5. Morbid obesity with probable obstructive sleep apnea 6. Anxiety disorder (severe) 7. Hypothyroidism 8. Atypical chest pain - pleuritic 9. Probable bronchial asthma PLAN: 1. Continue current medical therapy including Prinivil and ASA (baby ASA) 2. Anxiety management 3. Obstructive sleep apnea needs to be addressed and possible CPAP if clinically indicated - current evaluation and treatment as per pulmonary service 4. Consider Tilt table test at some point as outpatient 5. D-Dimer is to be checked. Further evaluation for pleuritic chest pain. Further plans are to follow Herberth Werner MD
[2017-06-26] MEDS: LIRAGLUTIDE 0.6 MG/0.1 ML SQ SCH (11:59)
--- NOTE | 2017-06-26 14:20 | EKG ---
Test Reason : Blood Pressure : / mmHG Vent. Rate : 085 BPM Atrial Rate : 085 BPM P-R Int : 162 ms QRS Dur : 094 ms QT Int : 408 ms P-R-T Axes : 045 -33 029 degrees QTc Int : 485 ms NORMAL SINUS RHYTHM LEFT AXIS DEVIATION MINIMAL VOLTAGE CRITERIA FOR LVH, MAY BE NORMAL VARIANT PROLONGED QT ABNORMAL ECG WHEN COMPARED WITH ECG OF 23-JUN-2017 10:43, NO SIGNIFICANT CHANGE WAS FOUND Confirmed by JEROME MENDOZA, JU ([id number]) on 06/26/2017 2:20:43 PM Referred By: Whit GROVER Confirmed By:JU CANO MD
[2017-06-26] MEDS: ALBUTEROL SO4 0.083% IH SOL 2.5 MG/3 ML VIAL.NEB. NEB PRN ×2 (14:36→21:00)
--- NOTE | 2017-06-26 14:37 | PN ---
Progress Note (short form) - Note Progress Note: HPI : 51 year old female with PMHx of HTN, DM, HCV (treated with harvoni 2016), "CVA", cirrhosis, anxiety, morbidly obese, who presented to the ED with syncope. The patient reports she started becoming more dizzy about 1 week ago and then yesterday she had a syncopal episode, but didn't want to be evaluated because it was Thanksgiving. She has had multiple episodes of syncope repeatedly over years and reports that she has been evaluated extensively for this. She was supposed to have a tilt table test in hte past but doesn't recall if she did. She says that her daughter has witnessed her shaking while unconscious in the past, and that at one point she was thought to have seizures , but as per her "they did an MRI or something and didn't find no seizures". She feels dizzy with a sense of spinning prior to syncopal event and feels dizzy afterwards as well. During one event witnessed here by her roommate the patient was said to be conversant throughout. FU : still feels a bit dizzy, more positional, was able to walk to bathroom today states was adnitted to [facility] (psych floor) in past and [facility] for mood stabilization and seizures-though the latter was not confirmed - History Source History Provided By: Patient, Medical Record Limitations to Obtaining History: Poor Historian - Past Medical History COIL WINDER STRAP: Yes: Syncope, TIA Cardio/Vascular: Yes: CAD, HTN, Hyperlipdemia Pulmonary: Yes: Sleep Apnea ...LMP: 08/19/14 Infectious Disease: Yes: Other (Hep C) Psych: Yes: Anxiety Endocrine: Yes: Diabetes Mellitus - Past Surgical History Past Surgical History: Yes: - Alcohol/Substance Use Hx Alcohol Use: No - Smoking History Smoking history: Former smoker Have you smoked in the past 12 months: No If you are a former smoker, when did you quit?: 04/28/15 - Social History Usual Living Arrangement: Alone ADL: Independent History of Recent Travel: No Home Medications - Allergies Allergies/Adverse Reactions: Allergies Allergy/AdvReac Type Severity Reaction Status Date / Time Iodinated Contrast- Oral and Allergy Intermediate Itching Verified 06/23/17 09: 55 IV Dye [Iodinated Contrast Media - IV Dye] tramadol AdvReac Verified 06/23/17 09:55 - Home Medications Home Medications: Ambulatory Orders Fluoxetine HCl [Prozac -] 40 mg PO DAILY 09/15/14 Gabapentin [Neurontin -] 600 mg PO BID 09/15/14 Troy-3 Fatty Acids [[place]roy-3] 1,000 mg PO BID 09/15/14 Albuterol Sulfate Inhaler - [Ventolin HFA Inhaler -] 1 - 2 inh PO QID 03/15/16 Gabapentin 900 mg PO HS 03/15/17 Insulin Glargine,Hum.rec.anlog [Lantus Solostar PEN -] 50 units SQ AM 03/15/17 Liraglutide [Victoza -] 1.8 mg SQ DAILY@1200 03/15/17 Lisinopril 10 mg PO DAILY 03/15/17 Topiramate [Topamax] 100 mg PO BID 03/15/17 Clonazepam [Klonopin -] 0.5 mg PO BID PRN 05/12/17 Hydrocodone/Acetaminophen [[place] 10-325 Tablet] 1 each PO BID PRN #60 tablet MDD 2 06/14/17 Family Disease History - Family Disease History Family Disease History: Diabetes: Brother, Sister, Other: Daughter Review of Systems - Review of Systems Cardiovascular: reports: Shortness of Breath Gastrointestinal: reports: Nausea, Vomiting Neurological: reports: Dizziness Endocrine: reports: Other (obesity) Hematology/Lymphatic: reports: No Symptoms Psychiatric: reports: Anxiety Physical Exam-Neuro Vital Signs: Vital Signs Temperature 98.6 F 06/26/17 10:23 Pulse Rate 109 H 06/26/17 10:23 Respiratory Rate 20 06/26/17 10:23 Blood Pressure 116/76 06/26/17 10:23 O2 Sat by Pulse Oximetry (%) 100 06/25/17 21:00 Constitutional: Yes: Obese Neck: Yes: WNL, Supple Musculoskeletal: Yes: WNL Psychiatric: Yes: Alert, Oriented Labs: CBCD WBC 8.7 K/mm3 (4.0-10.0) 06/26/17 06:35 RBC 4.42 M/mm3 (3.60-5.2) 06/26/17 06:35 Hgb 11.1 GM/dL (10.7-15.3) 06/26/17 06:35 Hct 34.6 % (32.4-45.2) 06/26/17 06:35 MCV 78.2 fl (80-96) L 06/26/17 06:35 MCHC 32.1 g/dl (32.0-36.0) 06/26/17 06:35 RDW 13.5 % (11.6-15.6) 06/26/17 06:35 Plt Count 273 K/MM3 (134-434) 06/26/17 06:35 MPV 9.3 fl (7.5-11.1) 06/26/17 06:35 CMP Sodium 140 mmol/L (136-145) 06/26/17 06:35 Potassium 4.0 mmol/L (3.5-5.1) 06/26/17 06:35 Chloride 107 mmol/L (98-107) 06/26/17 06:35 Carbon Dioxide 26 mmol/L (21-32) 06/26/17 06:35 Anion Gap 7 (8-16) L 06/26/17 06:35 BUN 14 mg/dL (7-18) 06/26/17 06:35 Creatinine 1.0 mg/dL (0.55-1.02) 06/26/17 06:35 Creat Clearance w eGFR 58.93 (>60) 06/26/17 06:35 Calcium 8.7 mg/dL (8.5-10.1) 06/26/17 06:35 Total Bilirubin 0.3 mg/dL (0.2-1.0) 06/26/17 06:35 AST 9 U/L (15-37) L 06/26/17 06:35 ALT 17 U/L (12-78) 06/26/17 06:35 Alkaline Phosphatase 85 U/L (45-117) 06/26/17 06:35 Total Protein 7.3 g/dl (6.4-8.2) 06/26/17 06:35 Albumin 3.3 g/dl (3.4-5.0) L 06/26/17 06:35 - Neuro Exam Level Of Consciousness: Yes: Alert, Oriented to Person, Oriented to Place, Oriented to Time Speech: WNL Cranial Nerves II-XII Intact: Yes DTR's: 2+ Left Bicep, 2+ Right Bicep, 2+ Left Tricep, 2+ Right Tricep, 2+ Left Brachioradialis, 2+ Right Brachioradialis Babinski: Absent Response to light touch: Normal Coordination: Normal: Finger to Nose, Heel to [place] Motor Strength: 5/5: Left Arm, Right Arm, Left Leg, Right Leg (no pronator drift ) Gait: Normal Imaging - Results Cat Scan: Report Reviewed, Image Reviewed (No acute pathology) Ultrasound: Report Reviewed (Carotid doppler no hemodynamically significant stenosis) Problem List - Problems (1) Syncope Code(s): R55 - SYNCOPE AND COLLAPSE Qualifiers: Syncope type: unspecified Qualified Code(s): R55 - Syncope and collapse Assessment/Plan Recurrent syncope of unclear etiology. doubt seizures, will do EEG as outpt. cont topamax for now. can do tilt as well. Vertigo--appears positional and peripheral; likely BPPV- can see ENT as outpt. should have psych follow up as well. please have her see us in office thanks [phone] Dr Wagner
--- NOTE | 2017-06-26 19:12 | PN ---
Physical Exam: SUBJECTIVE: Patient seen and examined sitting on edge of bed. Complains of chronic back and joint pain, requesting scheduled pain meds. OBJECTIVE: Vital Signs Period Temp Pulse Resp BP Sys/Giron Pulse Ox Last 24 Hr 97.9 F-98.9 F 79-109 18-20 104-164/63-77 98-100 GENERAL: The patient is awake, alert, and fully oriented, in no acute distress. LUNGS: Breath sounds equal, clear to auscultation bilaterally, no wheezes, no crackles, no accessory muscle use. HEART: Regular rate and rhythm, S1, S2 ABDOMEN: Obese, soft, nontender, nondistended, normoactive bowel sounds, no guarding, no rebound EXTREMITIES: 2+ pulses, warm, well-perfused, no edema. NEUROLOGICAL: Cranial nerves II through XII grossly intact. Normal speech, moves all extremities freely Laboratory Results - last 24 hr 06/25/17 06/26/17 06/26/17 22:35 06:27 06:35 WBC 8.7 RBC 4.42 Hgb 11.1 Hct 34.6 MCV 78.2 L MCH 25.1 L MCHC 32.1 RDW 13.5 Plt Count 273 MPV 9.3 Manual Slide Review No Result Required. D-Dimer Sodium Potassium Chloride Carbon Dioxide Anion Gap BUN Creatinine Creat Clearance w eGFR POC Glucometer 225 219 Random Glucose Calcium Total Bilirubin AST ALT Alkaline Phosphatase Total Protein Albumin 06/26/17 06/26/17 06/26/17 06:35 11:57 13:55 WBC RBC Hgb Hct MCV MCH MCHC RDW Plt Count MPV Manual Slide Review D-Dimer 202 Sodium 140 Potassium 4.0 Chloride 107 Carbon Dioxide 26 Anion Gap 7 L BUN 14 Creatinine 1.0 Creat Clearance w eGFR 58.93 POC Glucometer 226 Random Glucose 214 H Calcium 8.7 Total Bilirubin 0.3 AST 9 L ALT 17 Alkaline Phosphatase 85 Total Protein 7.3 Albumin 3.3 L 06/26/17 17:19 WBC RBC Hgb Hct MCV MCH MCHC RDW Plt Count MPV Manual Slide Review D-Dimer Sodium Potassium Chloride Carbon Dioxide Anion Gap BUN Creatinine Creat Clearance w eGFR POC Glucometer 164 Random Glucose Calcium Total Bilirubin AST ALT Alkaline Phosphatase Total Protein Albumin Current Medications Generic Name Dose Route Start Last Admin Trade Name Freq PRN Reason Stop Dose Admin Acetaminophen 650 mg 06/23/17 17:02 06/26/17 19:34 Tylenol - PO 650 mg Q6H PRN Administration FEVER OR PAIN Albuterol Sulfate 1 amp 06/24/17 12:12 06/26/17 21:00 Ventolin 0.083% Nebulizer Soln - NEB 1 amp Q6H PRN Administration SHORT OF BREATH/WHEEZING Aspirin 325 mg 06/24/17 10:00 06/26/17 10:14 Ecotrin - PO 325 mg DAILY SHAUN Administration Fluoxetine HCl 40 mg 06/25/17 10:00 06/26/17 10:15 Prozac - PO 40 mg DAILY SHAUN Administration Gabapentin 900 mg 06/24/17 22:00 06/25/17 21:37 Neurontin - PO 900 mg HS SHAUN Administration Gabapentin 600 mg 06/24/17 16:00 06/26/17 17:20 Neurontin - PO 600 mg BID@0800,1600 SHAUN Administration Heparin Sodium (Porcine) 5,000 unit 06/23/17 14:00 06/26/17 14:59 Heparin - SQ Not Given TID PENDING SALE TO [facility] Insulin Aspart 15 units 06/24/17 07:00 06/26/17 17:22 Novolog Vial SQ 15 units TIDAC PENDING SALE TO [facility] Administration Insulin Detemir 50 units 06/24/17 07:00 06/26/17 06:32 Levemir Vial SQ 50 units DAILY@0700 PENDING SALE TO [facility] Administration Levothyroxine Sodium 25 mcg 06/23/17 17:30 06/26/17 06:32 Synthroid - PO 25 mcg DAILY@0700 SHAUN Administration Lisinopril 10 mg 06/24/17 10:00 06/26/17 10:15 Prinivil PO 10 mg DAILY PENDING SALE TO [facility] Administration Meclizine HCl 12.5 mg 06/25/17 08:57 06/26/17 08:58 Antivert - PO 12.5 mg Q6H PRN Administration VERTIGO Liraglutide(Victoza) 0 each 06/24/17 12:00 06/26/17 11:59 0.6mg/0.1ml Pen SQ 1.8 each DAILY@1200 SHAUN Administration Oxycodone HCl 5 mg 06/24/17 12:11 06/26/17 19:33 Roxicodone - PO 5 mg Q6H PRN Administration PAIN Pancrelipase 1 cap 06/23/17 17:30 06/26/17 17:22 Jose Woo 36,000 Units Capsule PO Not Given TIDCM SHAUN Ranitidine HCl 150 mg 06/23/17 22:00 06/25/17 21:37 Zantac - PO 150 mg HS SHAUN Administration Topiramate 100 mg 06/24/17 10:27 06/26/17 10:15 Topamax - PO 100 mg BID SHAUN Administration ASSESSMENT/PLAN 51 year-old female with PMH significant for HTN, IDDM, HCV (treated with Harvoni 2015), CVA, Hep C cirrhosis, anxiety, morbid obesity and previous psych hospitalization. Placed on observation Syncope, recurrent, of uncertain etiology --reported syncopal episode yesterday was witnessed by hospital roommate who reported patient was awake, alert, and talking throughout the "episode" --r/o ACS: serial troponins negative; Echo: LV normal; RV not well-visualized ; mild MR; mild TR --r/o dysrhythmias: no events on tele; OK to discontinue monitoring --r/o carotid artery disease: US carotids shows mild intimal thickening at right common carotid bifurcation and bulb without evidence of hemodynamically significant stenosis; continue ASA; no statin due to h/o Hep C --r/o seizures: seen and evaluated by neuro, doubtful these are seizures; needs outpatient EEG --r/o neurocardiogenic source: needs outpatient tilt test --r/o benign positional vertigo: continue meclizine PRN IDDM --HgbA1C 8.9 on 05/05/17 --continue Levemire, Novolog, Victoza Hypertension --continue lisinpril Anxiety --continue topomax , clonazepam, Prozac Sleep apnea --f/u sleep study results Hepatitis C --completed Harvoni treatment --continue pancrelipase Hypothyroidism --continue levothyroxine FEN Fluids: PO intake adequate Electrolytes: replete as indicated Nutrition: diabetic, low sodium DVT prophylaxis: subq heparin; oob, ambulation Dispo: likely discharge in am. Full code. Visit type - Emergency Visit Emergency Visit: Yes ED Registration Date: 06/23/17 Care time: The patient presented to the Emergency Department on the above date and was hospitalized for further evaluation of their emergent condition. - New Patient This patient is new to me today: Yes Date on this admission: 06/26/17 - Critical Care Critical Care patient: No
[2017-06-26] MEDS ORDERED: PT OWN MED DRAWER 7, Y5N ONE (20:51)
[2017-06-26] MEDS: RANITIDINE HCL 150 MG TABLET (FP) PO SCH (22:35)
--- NOTE | 2017-06-26 23:12 | EKG ---
Test Reason : Blood Pressure : / mmHG Vent. Rate : 097 BPM Atrial Rate : 097 BPM P-R Int : 162 ms QRS Dur : 090 ms QT Int : 378 ms P-R-T Axes : 040 -37 047 degrees QTc Int : 480 ms NORMAL SINUS RHYTHM LEFT AXIS DEVIATION MINIMAL VOLTAGE CRITERIA FOR LVH, MAY BE NORMAL VARIANT PROLONGED QT ABNORMAL ECG WHEN COMPARED WITH ECG OF 07-OCT-2016 18:21, NO SIGNIFICANT CHANGE WAS FOUND Confirmed by JEROME MENDOZA, JU ([id number]) on 06/26/2017 11:12:09 PM Referred By: Confirmed By:JU CANO MD
[2017-06-27] MEDS: HEPARIN NA (PORCINE) 5,000 UNITS/ML 1ML VIAL SQ SCH (06:24)
[2017-06-27] MEDS: INSULIN DETEMIR 100 UNITS/ML MDV SQ SCH (06:25)
[2017-06-27] MEDS: INSULIN (NOVOLOG) ASPART 100 UNITS/ML 10ML VIAL SQ SCH (06:25)
[2017-06-27] MEDS: LEVOTHYROXINE NA 25 MCG TABLET (FP) PO SCH (06:26)
--- NOTE | 2017-06-27 06:57 | DS ---
Physical Exam: SUBJECTIVE: Patient seen and examined OBJECTIVE: Vital Signs Period Temp Pulse Resp BP Sys/Giron Pulse Ox Last 24 Hr 97.6 F-98.6 F 79-109 18-20 98-164/57-77 98-98 PHYSICAL EXAM GENERAL: The patient is awake, alert, and fully oriented, in no acute distress. LUNGS: Breath sounds equal, clear to auscultation bilaterally, no wheezes, no crackles, no accessory muscle use. HEART: Regular rate and rhythm, S1, S2 ABDOMEN: Obese, soft, nontender, nondistended, normoactive bowel sounds, no guarding, no rebound EXTREMITIES: 2+ pulses, warm, well-perfused, no edema. NEUROLOGICAL: Cranial nerves II through XII grossly intact. Normal speech, moves all extremities freely LABS CBCD WBC 8.7 K/mm3 (4.0-10.0) 06/26/17 06:35 RBC 4.42 M/mm3 (3.60-5.2) 06/26/17 06:35 Hgb 11.1 GM/dL (10.7-15.3) 06/26/17 06:35 Hct 34.6 % (32.4-45.2) 06/26/17 06:35 MCV 78.2 fl (80-96) L 06/26/17 06:35 MCHC 32.1 g/dl (32.0-36.0) 06/26/17 06:35 RDW 13.5 % (11.6-15.6) 06/26/17 06:35 Plt Count 273 K/MM3 (134-434) 06/26/17 06:35 MPV 9.3 fl (7.5-11.1) 06/26/17 06:35 CMP Sodium 140 mmol/L (136-145) 06/26/17 06:35 Potassium 4.0 mmol/L (3.5-5.1) 06/26/17 06:35 Chloride 107 mmol/L (98-107) 06/26/17 06:35 Carbon Dioxide 26 mmol/L (21-32) 06/26/17 06:35 Anion Gap 7 (8-16) L 06/26/17 06:35 BUN 14 mg/dL (7-18) 06/26/17 06:35 Creatinine 1.0 mg/dL (0.55-1.02) 06/26/17 06:35 Creat Clearance w eGFR 58.93 (>60) 06/26/17 06:35 Calcium 8.7 mg/dL (8.5-10.1) 06/26/17 06:35 Total Bilirubin 0.3 mg/dL (0.2-1.0) 06/26/17 06:35 AST 9 U/L (15-37) L 06/26/17 06:35 ALT 17 U/L (12-78) 06/26/17 06:35 Alkaline Phosphatase 85 U/L (45-117) 06/26/17 06:35 Total Protein 7.3 g/dl (6.4-8.2) 06/26/17 06:35 Albumin 3.3 g/dl (3.4-5.0) L 06/26/17 06:35 HOSPITAL COURSE: Date of Admission:06/23/17 Date of Discharge: 06/27/17 51 year-old female with PMH significant for HTN, CVA, IDDM, HCV cirrhosis ( treated with Harvoni 2015), morbid obesity, anxiety, and previous psych hospitalizations. Placed on observation Syncope, recurrent, of uncertain etiology --ACS ruled out: serial troponins negative; echo: LV normal; RV not well- visualized; mild MR; mild TR --r/o dysrhythmias: no events on telemetry --r/o carotid artery disease: US carotids shows mild intimal thickening at right common carotid bifurcation and bulb without evidence of hemodynamically significant stenosis; continued ASA; not on statin due to Hep C --r/o seizures: seen and evaluated by neuro, doubtful these are seizures; needs outpatient EEG --r/o neurocardiogenic source: needs outpatient tilt test --r/o benign positional vertigo: continued meclizine PRN IDDM --HgbA1C 8.9 on 05/05/17 --continued Levemir, Novolog, Victoza Hypertension --continued lisinpril Anxiety --continued topomax , clonazepam, Prozac Sleep apnea --f/u sleep study results Hepatitis C --completed Harvoni treatment --continue pancrelipase Hypothyroidism --continued levothyroxine Minutes to complete discharge: 35 Discharge Summary Reason For Visit: SYNCOPE Current Active Problems Syncope (Acute) Condition: Improved - Instructions Diet, Activity, Other Instructions: It is recommended you follow up with Dr. Wagner, the neurologist who saw you in the hospital. Please call his office for an appointment. His contact information is enclosed in this discharge packet. It is also recommended you follow up with Dr. Werner, the diesel powerplant mechanic helper who saw you in the hospital. His information is also enclosed. Return to the emergency department for any new or worsening symptoms. Referrals: Jhonathan Wagner DO [Staff Physician] - 1 Week Herberth Werner MD [Staff Physician] - 1 Week Disposition: HOME - Home Medications Comprehensive Discharge Medication List: Ambulatory Orders Fluoxetine HCl [Prozac -] 40 mg PO DAILY 09/15/14 Gabapentin [Neurontin -] 600 mg PO BID 09/15/14 [place]-3 Fatty Acids [[place]-3] 1,000 mg PO BID 09/15/14 Albuterol Sulfate Inhaler - [Ventolin HFA Inhaler -] 1 - 2 inh PO QID 03/15/16 Gabapentin 900 mg PO HS 03/15/17 Insulin Glargine,Hum.rec.anlog [Lantus Solostar PEN -] 50 units SQ AM 03/15/17 Liraglutide [Victoza -] 1.8 mg SQ DAILY@1200 03/15/17 Lisinopril 10 mg PO DAILY 03/15/17 Topiramate [Topamax] 100 mg PO BID 03/15/17 Clonazepam [Klonopin -] 0.5 mg PO BID PRN 05/12/17 This patient is new to me today: Yes Date on this admission: 06/27/17 Emergency Visit: Yes ED Registration Date: 06/23/17 Care time: The patient presented to the Emergency Department on the above date and was hospitalized for further evaluation of their emergent condition. Critical Care patient: No - Discharge Referral Referred to [facility] Med P.C.: No
[2017-06-27] MEDS ORDERED: PT OWN MED DRAWER 7, Y5N ONE ×2 (08:28→10:17)
[2017-06-27] MEDS: GABAPENTIN 300 MG CAPSULE (FP) PO SCH (08:33)
[2017-06-27] MEDS: LIPASE/PROTEASE/AMYLASE 36,000 UNIT CAPSULE PO SCH (08:33)
[2017-06-27] MEDS: oxyCODONE HCL 5 MG TABLET PO PRN (09:05)
[2017-06-27] MEDS: ACETAMINOPHEN 325 MG TABLET (FP) PO PRN (09:07)
[2017-06-27 10:25] VITALS: BP 122/70; PULSE 100; TEMP 98.2
[2017-06-27] MEDS: TOPIRAMATE 100 MG TABLET PO SCH (10:27)
[2017-06-27] MEDS: ASPIRIN 325 MG ENTERIC COATED TABLET (FP) PO SCH (10:27)
[2017-06-27] MEDS: FLUoxetine HCL 20 MG CAPSULE (FP) PO SCH (10:27)
[2017-06-27] MEDS: LISINOPRIL 10 MG TABLET (FP) PO SCH (10:35)
== END 2017-06-27 11:25 | disposition home or self-care (01) ==
LOC: JER 09:50 → JERBED 12:29 → J4W 15:15 → J5S 06-26 20:41
PROVIDERS: ADMIT Internal Medicine; ATTEND Nurse Practitioner Acute Care
PROC: 3E0337Z Introduction of Electrolytic and Water Balance Substance into Peripheral Vein, Percutaneous Approach (ICD-10-PCS; principal; 2017-06-23)
PROC: 3E013VG Introduction of Insulin into Subcutaneous Tissue, Percutaneous Approach (ICD-10-PCS; 2017-06-23)
PROC: 3E013GC Introduction of Other Therapeutic Substance into Subcutaneous Tissue, Percutaneous Approach (ICD-10-PCS; 2017-06-23)
PROC: 3E0F7GC Introduction of Other Therapeutic Substance into Respiratory Tract, Via Natural or Artificial Opening (ICD-10-PCS; 2017-06-23)
DX: R55 Syncope and collapse (principal); I10 Essential (primary) hypertension; I25.10 Atherosclerotic heart disease of native coronary artery without angina pectoris; E10.65 Type 1 diabetes mellitus with hyperglycemia; J45.909 Unspecified asthma, uncomplicated; G47.33 Obstructive sleep apnea (adult) (pediatric); B18.2 Chronic viral hepatitis C; F41.9 Anxiety disorder, unspecified; F31.9 Bipolar disorder, unspecified; K74.60 Unspecified cirrhosis of liver; E66.01 Morbid (severe) obesity due to excess calories; Z68.42 Body mass index [BMI] 45.0-49.9, adult; M54.10 Radiculopathy, site unspecified; Z87.891 Personal history of nicotine dependence; Z86.73 Personal history of transient ischemic attack (TIA), and cerebral infarction without residual deficits; Z79.4 Long term (current) use of insulin; Z88.8 Allergy status to other drugs, medicaments and biological substances
CPT/HCPCS: 36415; 70450-TC; 71010-TC; 80053; 80061; 81003; 81015; 82550; 83721; 83880; 84443; 84484; 84703; 85025; 85027; 85379; 85610; 85730; 93005; 93010; 93306-TC; 93880-TC; 94640; 95816; 96360; 96372; 99284-25; G0378

== ENCOUNTER 2017-07-09 15:27 | Emergency (ER) | payer OTHER ==
[2017-07-09 15:43] VITALS: TEMP 98.1; BMI 46.8
--- NOTE | 2017-07-09 15:48 | PDOC ---
History of Present Illness - General Chief Complaint: Seizure Stated Complaint: SEIZURE Time Seen by Provider: 07/09/17 15:48 - History of Present Illness Initial Comments: 07/09/17 15:49 HTN, CVA, IDDM, HCV cirrhosis (treated with Hilda 2015), morbid obesity, anxiety, and previous psych hospitalizations Past History - Past Medical History Allergies/Adverse Reactions: Allergies Allergy/AdvReac Type Severity Reaction Status Date / Time Iodinated Contrast- Oral and Allergy Intermediate Itching Verified 07/09/17 15: 40 IV Dye [Iodinated Contrast Media - IV Dye] tramadol AdvReac Verified 07/09/17 15:40 Home Medications: Ambulatory Orders Fluoxetine HCl [Prozac -] 40 mg PO DAILY 09/15/14 Gabapentin [Neurontin -] 600 mg PO BID 09/15/14 [place]-3 Fatty Acids [[place]-3] 1,000 mg PO BID 09/15/14 Albuterol Sulfate Inhaler - [Ventolin HFA Inhaler -] 1 - 2 inh PO QID 03/15/16 Gabapentin 900 mg PO HS 03/15/17 Insulin Glargine,Hum.rec.anlog [Lantus Solostar PEN -] 50 units SQ AM 03/15/17 Liraglutide [Victoza -] 1.8 mg SQ DAILY@1200 03/15/17 Lisinopril 10 mg PO DAILY 03/15/17 Topiramate [Topamax] 100 mg PO BID 03/15/17 Clonazepam [Klonopin -] 0.5 mg PO BID PRN 05/12/17 Meclizine HCl [Antivert -] 12.5 mg PO Q6H PRN #20 tablet 06/27/17 Asthma: Yes Cardiac Disorders: No CVA: Yes COPD: No CHF: No Dementia: No Diabetes: Yes (on meds) GI Disorders: No HTN: Yes Liver Disease: Yes (hep C - treated) Psychiatric Problems: Yes (depression, anxiety, BIPOLAR) Seizures: No Thyroid Disease: No - Surgical History Abdominal Surgery: Yes (UMBILICAL HERNIA) - Suicide/Smoking/Psychosocial Hx Smoking History: Former smoker Have you smoked in the past 12 months: No If you are a former smoker, when did you quit?: 04/28/15 Information on smoking cessation initiated: No 'Breaking Loose' booklet given: 09/16/14 Hx Alcohol Use: No Drug/Substance Use Hx: No Substance Use Type: None Hx Substance Use Treatment: No *Physical Exam - Vital Signs Last Vital Signs Temp Pulse Resp BP Pulse Ox 98.1 F 98 H 18 108/66 100 07/09/17 15:40 07/09/17 15:40 07/09/17 15:40 07/09/17 15:40 07/09/17 15:40
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
[2017-07-09 16:33] LABS: URINE APPEARANCE SLCLOUDY; URINE BILIRUBIN NEGATIVE (NEGATIVE); URINE BLOOD NEGATIVE (NEGATIVE); URINE COLOR STRAW; URINE GLUCOSE (UA) 1+ (NEGATIVE); URINE KETONE NEGATIVE (NEGATIVE); URINE LEUK ESTERASE NEGATIVE (NEGATIVE); URINE NITRITE NEGATIVE (NEGATIVE); URINE PROTEIN NEGATIVE (NEGATIVE); URINE UROBILINOGEN NEGATIVE mg/dL (0.2-1.0)
[2017-07-09 16:35] LABS: BASOPHIL 0.6 % (0-2.0); EOSINOPHIL 3.5 % (0-4.5); MCH 24.9 pg (25.7-33.7); MCHC 32.2 g/dl (32.0-36.0); MEAN CELL VOLUME 77.3 fl (80-96); MEAN PLT VOLUME 9.7 fl (7.5-11.1); NEUTROPHILS 61.2 % (42.8-82.8); PLATELET COUNT 203 K/MM3 (134-434); RDW 13.9 % (11.6-15.6); WHITE BLOOD COUNT 7.9 K/mm3 (4.0-10.0)
[2017-07-09 17:05] LABS: ALBUMIN 3.1 g/dl (3.4-5.0); ANION GAP 9 (8-16); CALCIUM 8.3 mg/dL (8.5-10.1); CO2 24 mmol/L (21-32); CREATININE 1.2 mg/dL (0.55-1.02); GLUCOSE,RANDOM 253 mg/dL (74-106); SGOT/AST 12 U/L (15-37); SGPT/ALT 21 U/L (12-78)
[2017-07-09 17:09] LABS: ALK PHOS 75 U/L (45-117); BILIRUBIN,TOTAL 0.2 mg/dL (0.2-1.0); CPK 73 IU/L (26-192); TOT PROT 6.9 g/dl (6.4-8.2); TROPONIN I < 0.02 ng/ml (0.00-0.05)
[2017-07-09] MEDS ORDERED: METOCLOPRAMIDE HCL INJECTION 10 MG/2 ML VIAL IVPB ONE (17:25)
[2017-07-09] MEDS ORDERED: KETOROLAC TROMETHAMINE 30 MG/1 ML VIAL IVPUSH ONE (17:25)
[2017-07-09] MEDS ORDERED: KETOROLAC TROMETHAMINE 30 MG/1 ML VIAL ONE (17:45)
[2017-07-09] MEDS ORDERED: METOCLOPRAMIDE HCL INJECTION 10 MG/2 ML VIAL ONE (17:45)
[2017-07-09 18:46] VITALS: BP 105/66; PULSE 101
[2017-07-09 21:25] LABS: URINE LEUK ESTERASE NEGATIVE (NEGATIVE)
--- NOTE | 2017-07-10 15:00 | EKG ---
Test Reason : Blood Pressure : / mmHG Vent. Rate : 102 BPM Atrial Rate : 102 BPM P-R Int : 158 ms QRS Dur : 092 ms QT Int : 374 ms P-R-T Axes : 052 -39 054 degrees QTc Int : 487 ms SINUS TACHYCARDIA LEFT AXIS DEVIATION MINIMAL VOLTAGE CRITERIA FOR LVH, MAY BE NORMAL VARIANT ABNORMAL ECG WHEN COMPARED WITH ECG OF 25-JUN-2017 08:57, NO SIGNIFICANT CHANGE WAS FOUND Confirmed by JEROME MENDOZA, JU ([id number]) on 07/10/2017 3:00:10 PM Referred By: Confirmed By:JU CANO MD
== END 2017-07-09 18:46 | disposition home or self-care (01) ==
LOC: JER 15:27
PROC: 3E0333Z Introduction of Anti-inflammatory into Peripheral Vein, Percutaneous Approach (ICD-10-PCS; principal; 2017-07-09)
PROC: 3E033GC Introduction of Other Therapeutic Substance into Peripheral Vein, Percutaneous Approach (ICD-10-PCS; 2017-07-09)
DX: R55 Syncope and collapse (principal); J45.909 Unspecified asthma, uncomplicated; Z86.73 Personal history of transient ischemic attack (TIA), and cerebral infarction without residual deficits; F41.8 Other specified anxiety disorders; F31.9 Bipolar disorder, unspecified; I10 Essential (primary) hypertension; E11.9 Type 2 diabetes mellitus without complications; Z87.891 Personal history of nicotine dependence
CPT/HCPCS: 36415; 70450-TC; 71010-TC; 80053; 81003; 82550; 83605; 84484; 85025; 93005; 93010; 96374; 96375; 99282-25

== ENCOUNTER 2017-08-14 19:51 | Observation (INO) | payer OTHER ==
[2017-08-14 20:01] VITALS: BMI 46.4
[2017-08-14] MEDS ORDERED: SODIUM CHLORIDE 0.9% 1000 ML INFUS.BAG IV ONE (20:05)
[2017-08-14 20:18] LABS: BASO % 0.5 % (0-2.0); EOS % 3.5 % (0-4.5); HEMATOCRIT 36.3 % (32.4-45.2); HEMOGLOBIN 11.8 GM/dL (10.7-15.3); LYMPH % 28.7 % (8-40); MCH 24.5 pg (25.7-33.7); MCHC 32.4 g/dl (32.0-36.0); MEAN CELL VOLUME 75.5 fl (80-96); MEAN PLT VOLUME 9.3 fl (7.5-11.1); MONO % 7.3 % (3.8-10.2); PLATELET COUNT 229 K/MM3 (134-434); RDW 14.8 % (11.6-15.6); WHITE BLOOD COUNT 10.1 K/mm3 (4.0-10.0)
[2017-08-14] MEDS ORDERED: clonazePAM 0.5 MG TABLET PO ONE (20:38)
--- NOTE | 2017-08-14 20:40 | PDOC ---
Attending Attestation - HPI HPI: 08/14/17 20:52 Patient is a 52 year old female with a history of HTN, Insulin dependent DM, Hep C treated, anxiety, depression, MDD, diabetic neuropathy, MARILU, CVA(left sided deficit on aspirin only), umbilical hernia repair, tubal ligation, c- section, and presents to the ED s/p seizure episode. Patient states she was visiting her daughter in L&D earlier. Patient states she felt light-headed and syncopized. Patient briefly returned to normal and family states that patient began seizing while in the car Patient was with so family members drove to ED where patient was brought in. Patient had a seizure as recent as 1 month ago (). Patient was brought to the ED and woke up in a confused, disoriented and post-ictal state. She reports chest pressure secondary to anxiety. She denies recent fevers, chills, or headache. She denies recent nausea, vomit, diarrhea or constipation. She denies recent dysuria, frequency, urgency or hematuria. She denies recent shortness of breath. <Breann Weston - Last Filed: 08/14/17 21:36> - Resident Resident Name: Keo Mustafa - ED Attending Attestation I have performed the following: I have examined & evaluated the patient, The case was reviewed & discussed with the resident, I agree w/resident's findings & plan, Exceptions are as noted - Physicial Exam PE: 08/14/17 21:42 *Physical Exam General Appearance: Yes: Appropriately Dressed. No: Apparent Distress, Intoxicated HEENT: positive: EOMI, JANETH, Normal ENT Inspection, Normal Voice, TMs Normal, Pharynx Normal. negative: Pale Conjunctivae, Photophobia, Scleral Icterus (R), Scleral Icterus (L) Neck: positive: Trachea midline, Normal Thyroid, Supple. negative: Tender, Rigid, Carotid bruit, Stridor, Lymphadenopathy (R), Lymphadenopathy (L), Thyromegaly Respiratory/Chest: positive: Lungs Clear, Normal Breath Sounds. negative: Chest Tender, Respiratory Distress, Accessory Muscle Use, Labored Respiration, RES, Crackles, Rales, Rhonchi, Stridor, Wheezing, Dullness Cardiovascular: positive: Regular Rhythm, Regular Rate, S1, S2. negative: Edema , JVD, Murmur, Bradycardia, Tachycardia Vascular Pulses: Dorsalis-Pedis (R): 2+, Doralis-Pedis (L): 2+ Gastrointestinal/Abdominal: positive: Normal Bowel Sounds, Flat, Soft. negative : Tender, Organomegaly, Pulsatile Mass, Increased Bowel Sounds, Decreased BS, Distended, Guarding, Rebound, Hernia, Hepatomegaly, Spleenomegaly Lymphatic: negative: Adenopathy, Tenderness Musculoskeletal: positive: Normal Inspection. negative: CVA Tenderness, Decreased Range of Motion Extremity: positive: Normal Capillary Refill, Normal Inspection, Normal Range of Motion, Pelvis Stable. negative: Tender, Pedal Edema, Swelling, Erythema Integumentary: positive: Normal Color, Dry, Warm. negative: Cyanotic, Erythema , Jaundice, Rash Neurologic: positive: technical administrator II-XII NML intact, Fully Oriented, Alert, Normal Mood/ Affect, Motor Strength 5/5. negative: EOM Palsy, Facial Droop, Sensory Deficit - Medical Decision Making 08/15/17 04:03 Pt admitted for further monitoring <Daryl Lewis - Last Filed: 08/15/17 04:04> Heart Score/ECG Review - ECG Impressions Comment:: 08/14/17 20:53 EKG Impressions: Sinus tachycardia Left anterior fasicular block Minimal voltage criteria for LVH, may be normal variant Abnormal ECG Vent. rate: 115 bpm <Breann Weston - Last Filed: 08/14/17 21:36>
[2017-08-14 20:43] LABS: ALBUMIN 3.5 g/dl (3.4-5.0); ANION GAP 10 (8-16); BILIRUBIN,TOTAL 0.2 mg/dL (0.2-1.0); BLOOD UREA NITROGEN 13 mg/dL (7-18); CALCIUM 8.3 mg/dL (8.5-10.1); CHLORIDE 104 mmol/L (98-107); CO2 24 mmol/L (21-32); CREATININE 1.1 mg/dL (0.55-1.02); GLUCOSE,RANDOM 271 mg/dL (74-106); POTASSIUM 3.9 mmol/L (3.5-5.1); SGOT/AST 11 U/L (15-37); SGPT/ALT 17 U/L (12-78); SODIUM 138 mmol/L (136-145); TOT PROT 7.6 g/dl (6.4-8.2)
[2017-08-14 20:45] LABS: ALK PHOS 91 U/L (45-117)
[2017-08-14 20:54] LABS: URINE APPEARANCE CLEAR; URINE BILIRUBIN NEGATIVE (NEGATIVE); URINE BLOOD NEGATIVE (NEGATIVE); URINE COLOR STRAW; URINE GLUCOSE (UA) 2+ (NEGATIVE); URINE KETONE NEGATIVE (NEGATIVE); URINE LEUK ESTERASE NEGATIVE (NEGATIVE); URINE NITRITE NEGATIVE (NEGATIVE); URINE PROTEIN NEGATIVE (NEGATIVE)
[2017-08-14] MEDS ORDERED: clonazePAM 0.5 MG TABLET ONE (21:16)
--- NOTE | 2017-08-14 21:42 | PDOC ---
History of Present Illness - General Chief Complaint: Seizure Stated Complaint: CHEST PAIN Time Seen by Provider: 08/14/17 20:01 History Source: Patient Exam Limitations: No Limitations - History of Present Illness Initial Comments: 08/14/17 21:20 The patient is a 52F with a PMH of morbid obesity, HTN, insulin-dependent diabetes, hepatitis C virus, sleep apnea, asthma, anxiety, depression, bipolar, and questionable seizure disorder who presents to the ED after having a witnessed seizure. The history was provided by the daughter because of patient' s clinical condition. The daughter states that the patient has recently gone through stressors - the patient's daughter recently delivered a baby but suffered massive post hemorrhage and almost . As the patient was getting in the car, she felt lightheaded and then syncopized. She returned to normal, then as the family was driving in the car, had a seizure. The patient does not remember anything except feeling lightheaded and then waking up in the hospital bed. She states that she has chest pressure 2/2 to her anxiety because of "everything going on". Past History - Past Medical History Allergies/Adverse Reactions: Allergies Allergy/AdvReac Type Severity Reaction Status Date / Time Iodinated Contrast- Oral and Allergy Intermediate Itching Verified 08/14/17 19: 58 IV Dye [Iodinated Contrast Media - IV Dye] tramadol AdvReac Verified 08/14/17 19:58 Home Medications: Ambulatory Orders Fluoxetine HCl [Prozac -] 40 mg PO DAILY 09/15/14 Gabapentin [Neurontin -] 600 mg PO BID 09/15/14 [place]-3 Fatty Acids [[place]-3] 1,000 mg PO BID 09/15/14 Albuterol Sulfate Inhaler - [Ventolin HFA Inhaler -] 1 - 2 inh PO QID 03/15/16 Gabapentin 900 mg PO HS 03/15/17 Insulin Glargine,Hum.rec.anlog [Lantus Solostar PEN -] 50 units SQ AM 03/15/17 Liraglutide [Victoza -] 1.8 mg SQ DAILY@1200 03/15/17 Topiramate [Topamax] 100 mg PO BID 03/15/17 Clonazepam [Klonopin -] 0.5 mg PO BID PRN 05/12/17 Meclizine HCl [Antivert -] 12.5 mg PO Q6H PRN #20 tablet 06/27/17 Hydrocodone/Acetaminophen [Hydrocodon-Acetaminophn 10-325] 1 each PO BID PRN # 60 tablet MDD 2 07/17/17 Asthma: Yes Cardiac Disorders: No CVA: Yes COPD: No CHF: No Dementia: No Diabetes: Yes (on meds) GI Disorders: No HTN: Yes Liver Disease: Yes (hep C - treated) Psychiatric Problems: Yes (depression, anxiety, BIPOLAR) Seizures: No Thyroid Disease: No - Surgical History Abdominal Surgery: Yes (UMBILICAL HERNIA) - Suicide/Smoking/Psychosocial Hx Smoking History: Unknown if ever smoked Have you smoked in the past 12 months: No If you are a former smoker, when did you quit?: 3 years ago Information on smoking cessation initiated: No 'Breaking Loose' booklet given: 09/16/14 Hx Alcohol Use: No Drug/Substance Use Hx: No Substance Use Type: None Hx Substance Use Treatment: No Review of Systems - Review of Systems Able to Perform ROS?: Yes Comments:: 08/14/17 21:53 GENERAL/CONSTITUTIONAL: No fever or chills. No weakness. HEAD, EYES, EARS, NOSE AND THROAT: No change in vision. No ear pain or discharge. No sore throat. GASTROINTESTINAL: No nausea, vomiting, diarrhea, constipation, or abdominal pain. GENITOURINARY: No dysuria, frequency, hematuria, or change in urination. CARDIOVASCULAR: Positive for chest pressure. No chest pain, palpitations, or lightheadedness. RESPIRATORY: No cough, wheezing, shortness of breath, or hemoptysis. MUSCULOSKELETAL: No joint or muscle swelling or pain. No neck or back pain. SKIN: No rash or lesions. NEUROLOGIC: Positive for LOC and lightheadedness. No headache, numbness, tingling, weakness, or change in strength/sensation. ENDOCRINE: No increased thirst. No abnormal weight change. HEMATOLOGIC/LYMPHATIC: No anemia, easy bleeding, or history of blood clots. ALLERGIC/IMMUNOLOGIC: No hives or skin allergy. Is the patient limited British proficient: No *Physical Exam - Vital Signs Last Vital Signs Temp Pulse Resp BP Pulse Ox 111 H 14 147/79 98 08/14/17 19:59 08/14/17 19:59 08/14/17 19:59 08/14/17 19:59 - Physical Exam Comments: 08/15/17 02:09 GENERAL: Well developed, well nourished. Awake and alert. No acute distress. HEENT: Normocephalic, atraumatic. Hearing grossly normal. Moist mucous membranes. PERRLA, EOMI. No conjunctival pallor. Sclera are non-icteric. NECK: Supple. Full ROM. No JVD. Carotid pulses 2+ and symmetric, without bruits. CARDIOVASCULAR: Regular rate and rhythm. No murmurs, rubs, or gallops. PULMONARY: No evidence of respiratory distress. Lungs clear to auscultation bilaterally. No wheezing, rales or rhonchi. ABDOMINAL: Soft. Non-tender. Non-distended. No rebound or guarding. No organomegaly. Normoactive bowel sounds. GENITOURINARY: No CVA tenderness bilaterally. MUSCULOSKELETAL: Normal range of motion at all joints. No bony deformities or tenderness. EXTREMITIES: No cyanosis. No clubbing. No edema. No calf tenderness. SKIN: Warm and dry. Normal capillary refill. No rashes. No jaundice. NEUROLOGICAL: Alert, awake, appropriate. Cranial nerves 2-12 intact. Normal speech. Gait is normal without ataxia. PSYCHIATRIC: Cooperative. Good eye contact. Appropriate mood and affect. Heart Score/ECG Review #1 ECG reviewed & interpreted by me at: 02:11 General ECG Interpretation: Sinus Rhythm, Normal Rate (Tachy to 115), Normal Intervals, No acute ischemic changes ED Treatment Course - LABORATORY CBC & Chemistry Diagram: 08/14/17 20:10 08/14/17 20:10 - ADDITIONAL ORDERS Additional order review: Laboratory Results 08/14/17 08/14/17 08/14/17 20:10 20:10 19:56 Sodium 138 Potassium 3.9 Chloride 104 Carbon Dioxide 24 Anion Gap 10 BUN 13 Creatinine 1.1 H Creat Clearance w eGFR 52.58 POC Glucometer [phone] Random Glucose 271 H Lactic Acid 2.1 H Calcium 8.3 L Total Bilirubin 0.2 AST 11 L ALT 17 Alkaline Phosphatase 91 Creatine Kinase 81 Troponin I < 0.02 Total Protein 7.6 Albumin 3.5 08/14/17 08/14/17 20:10 19:56 RBC 4.80 MCV 75.5 L MCHC 32.4 RDW 14.8 MPV 9.3 Neutrophils % 60.0 Lymphocytes % 28.7 Monocytes % 7.3 Eosinophils % 3.5 Basophils % 0.5 POC Glucometer [phone] - RADIOLOGY Radiology Studies Ordered: Category Date Time Status HEAD CT WITHOUT CONTRAST [CT] Stat CT Scan 08/14/17 20:05 Taken CHEST X-RAY PORTABLE* [RAD] Stat Radiology 08/14/17 20:05 Taken - Medications Given in the ED: ED Medications Discontinued Medications Generic Name Dose Route Start Last Admin Trade Name Freq PRN Reason Stop Dose Admin Clonazepam 1 mg 08/14/17 20:38 08/14/17 21:19 Klonopin - PO 08/14/17 20:39 1 mg ONCE ONE Administration Sodium Chloride 1,000 ml 08/14/17 20:05 08/14/17 20:20 Normal Saline - IV 08/14/17 20:06 1,000 ml ONCE ONE Administration Medical Decision Making - Medical Decision Making 08/15/17 00:39 Patient is a 52F with an extensive PMH who presents to the ED after having a seizure. CT head WNL. Attending admitted patient. *DC/Admit/Observation/Transfer Diagnosis at time of Disposition: Light-headedness - Discharge Dispostion Condition at time of disposition: Stable Admit: Yes - Referrals - Patient Instructions - Post Discharge Activity
--- NOTE | 2017-08-15 00:37 | HP ---
CHIEF COMPLAINT: passed out, seizure PCP: HISTORY OF PRESENT ILLNESS: 52 y/o F with PMH seizure disorder (was on Keppra in past, currently not on), syncopal episodes (most recently 05/2017), HTN, who presented to the ED after supposed witnessed fall and seizure by family. As per daughter, pt was visiting her other daughter in the hospital, after she gave and became increasingly emotional once she learned about the complications of the . Pt began to cry and then had a syncopal episode as they were leaving the hospital, while in the parking lot. Daughter states that pt did not complain of lightheadedness, dizziness, or palpitations prior to the episode, and did not hit her head. She was on the ground for a 5-10 seconds before family helped her up into their car. Then, while riding away from the hospital, pt was observed to have a supposed episode where her "arms and legs were shaking" for a few minutes. Pt subsequently was seen to syncopize in the car as well. Pt syncopal episodes a/w "chest pressure" when pt exerts herself. Pt also endorses a mild frontal headache and slight blurring of vision. Otherwise, she denies fever, chills, SOB, or urinary changes. ER course was notable for: (1) unremarkable EKG- sinus tachycardia 2/2 anxiety (2) head CT: no intracranial hemorrhage noted (3) first troponin: negative Recent Travel: none PAST MEDICAL HISTORY: seizure disorder, syncopal episodes, HTN, Hepatitis C (tx with Hilda), cirrhosis, bipolar disorder, hypothyroidism, morbid obesity, sleep apnea, asthma PAST SURGICAL HISTORY: umbilical hernia repair (1990), 2 c-sections, hysterectomy Social History: Smoking: quit 3 yrs ago, prior smoked ~40 yrs 1ppd Alcohol: denies Drugs: denies Family History: father- cancer (unaware of type), mother- HTN, cardiac issues, sister- cardiac issues, DM Allergies Iodinated Contrast- Oral and IV Dye [Iodinated Contrast Media - IV Dye] Allergy (Intermediate, Verified 08/14/17 19:58) Itching tramadol Adverse Reaction (Verified 08/14/17 19:58) HOME MEDICATIONS: Home Medications Medication Instructions Recorded Fluoxetine HCl [Prozac -] 40 mg PO DAILY 09/15/14 Gabapentin [Neurontin -] 600 mg PO BID 09/15/14 [place]-3 Fatty Acids [[place]-3] 1,000 mg PO BID 09/15/14 Albuterol Sulfate Inhaler - 1 - 2 inh PO QID 03/15/16 [Ventolin HFA Inhaler -] Gabapentin 900 mg PO HS 03/15/17 Insulin Glargine,Hum.rec.anlog 50 units SQ AM 03/15/17 [Lantus Solostar PEN -] Liraglutide [Victoza -] 1.8 mg SQ DAILY@1200 03/15/17 Topiramate [Topamax] 100 mg PO BID 03/15/17 Clonazepam [Klonopin -] 0.5 mg PO BID PRN 05/12/17 Meclizine HCl [Antivert -] 12.5 mg PO Q6H PRN #20 tablet 06/27/17 Hydrocodone/Acetaminophen 1 each PO BID PRN #60 tablet MDD 2 07/17/17 [Hydrocodon-Acetaminophn 10-325] REVIEW OF SYSTEMS CONSTITUTIONAL: Absent: fever, chills, diaphoresis, generalized weakness, malaise, loss of appetite, weight change HEENT: Absent: rhinorrhea, nasal congestion, throat pain, throat swelling, difficulty swallowing, mouth swelling, ear pain, eye pain, visual changes CARDIOVASCULAR: +chest pressure, + syncope Absent: chest pain, syncope, palpitations, irregular heart rate, lightheadedness , peripheral edema RESPIRATORY: Absent: cough, shortness of breath, dyspnea with exertion, orthopnea, wheezing, stridor, hemoptysis GASTROINTESTINAL: Absent: abdominal pain, abdominal distension, nausea, vomiting, diarrhea, constipation, melena, hematochezia GENITOURINARY: Absent: dysuria, frequency, urgency, hesitancy, hematuria, flank pain, genital pain MUSCULOSKELETAL: Absent: myalgia, arthralgia, joint swelling, back pain, neck pain SKIN: Absent: rash, itching, pallor HEMATOLOGIC/IMMUNOLOGIC: Absent: easy bleeding, easy bruising, lymphadenopathy, frequent infections ENDOCRINE: Absent: unexplained weight gain, unexplained weight loss, heat intolerance, cold intolerance NEUROLOGIC: +seizure Absent: headache, focal weakness or paresthesias, dizziness, unsteady gait, seizure, mental status changes, bladder or bowel incontinence PSYCHIATRIC: Absent: anxiety, depression, suicidal or homicidal ideation, hallucinations. PHYSICAL EXAMINATION Vital Signs - 24 hr 08/14/17 19:59 Pulse Rate 111 H Respiratory 14 Rate Blood Pressure 147/79 O2 Sat by Pulse 98 Oximetry (%) GENERAL: Obese female, lying in bed, awake, alert, and fully oriented. Anxious however in no acute distress. HEAD: Normal with no signs of trauma. EYES: Pupils equal, round and reactive to light, extraocular movements intact, sclera anicteric, conjunctiva clear. EARS, NOSE, THROAT: Ears normal, nares patent, oropharynx clear without exudates. Moist mucous membranes. NECK: Normal range of motion, supple without lymphadenopathy, JVD, or masses. LUNGS: Breath sounds equal, clear to auscultation bilaterally. No wheezes, and no crackles. No accessory muscle use. HEART: Tachycardic rate and rhythm, normal S1 and S2 without murmur, rub or gallop. ABDOMEN: Soft, obese, nontender, mildly distended, normoactive bowel sounds, no guarding, no rebound, no masses. LOWER EXTREMITIES: 2+ posterior tibial pulses, warm, well-perfused. No calf tenderness. No peripheral edema. NEUROLOGICAL: Cranial nerves II-XII intact. PSYCHIATRIC: Anxious Laboratory Results 08/14/17 08/14/17 20:10 20:10 WBC 10.1 H Hgb 11.8 D Hct 36.3 Plt Count 229 Sodium 138 Potassium 3.9 Chloride 104 BUN 13 Creatinine 1.1 H Random Glucose 271 H Lactic Acid Calcium 8.3 L AST 11 L ALT 17 Troponin I < 0.02 Urine Color Urine Appearance Urine Glucose (UA) Urine Urobilinogen 08/14/17 08/14/17 20:10 20:37 WBC Hgb Hct Plt Count Sodium Potassium Chloride BUN Creatinine Random Glucose Lactic Acid 2.1 H Calcium AST ALT Troponin I Urine Color Straw Urine Appearance Clear Urine Glucose (UA) 2+ H Urine Urobilinogen 2.0 H 08/14/17 20:10 Troponin I < 0.02 IMAGING -Head CT: without intracranial hemorrhage -CXR: without infiltrates ASSESSMENT/PLAN: 52 y/o F with PMH seizure disorder (was on Keppra in past, currently not on), syncopal episodes (most recently 05/2017), HTN, who presented to the ED after supposed witnessed fall and seizure by family. Pt being admitted to tele to r/o ACS. #r/o ACS -unlikely, as pt EKG is normal, initial troponin negative -pt with "chest pressure" on exertion -monitor pt on tele -troponins x 3 #questionable seizure -witnessed by family "shaking arms and legs" -hx Keppra use in past, verify home meds with pharmacy -Continue topiramate 100mg BID -seizure precautions - padding -Ativan 0.5 mg PRN #IDDM -hold home insulin, liraglutide -ISS -BGM #HTN- currently controlled -pt currently not on home BP meds #Asthma -Continue ventolin 1-2 puffs PO QID #Bipolar disorder -continue Prozac 40mg qd #Hypothyroidism -Continue levothyroxine #MARILU -does not use CPAP currently -outpt sleep study #F/E/N -IV NS @ 75 mls/hr -Monitor electrolytes -Na controlled diet #PPX -DVT: Hep SQ 5000 BID #Dispo Tele monitoring, observation. Note: Pt pharmacy closed during night- call to verify meds in AM: [facility] [phone] Visit type - Emergency Visit Emergency Visit: Yes ED Registration Date: 08/15/17 Care time: The patient presented to the Emergency Department on the above date and was hospitalized for further evaluation of their emergent condition. - New Patient This patient is new to me today: Yes Date on this admission: 08/15/17 - Critical Care Critical Care patient: No
[2017-08-15] MEDS ORDERED: LORazepam 0.5 MG TABLET PO PRN ×2 (01:03→01:04)
[2017-08-15] MEDS ORDERED: HEPARIN NA (PORCINE) 5,000 UNITS/ML 1ML VIAL ONE (01:23)
[2017-08-15] MEDS: SODIUM CHLORIDE 1,000 ML IV SCH (01:25)
[2017-08-15] MEDS: HEPARIN NA (PORCINE) 5,000 UNITS/ML 1ML VIAL SQ SCH ×3 (01:25→22:32)
[2017-08-15] MEDS: ALBUTEROL SO4 18 GM HFA INHALER IH SCH ×4 (02:36→22:45)
[2017-08-15] MEDS ORDERED: clonazePAM 0.5 MG TABLET PO PRN (04:14)
[2017-08-15] MEDS ORDERED: MECLIZINE HCL 12.5 MG TABLET PO PRN (04:20)
[2017-08-15] MEDS ORDERED: oxyCODONE HCL 5 MG TABLET PO PRN (04:35)
[2017-08-15] MEDS ORDERED: ACETAMINOPHEN 325 MG TABLET (FP) PO PRN (04:35)
--- NOTE | 2017-08-15 05:21 | PN ---
Teaching Attending Note Name of Resident: Neeru Hinojosa ATTENDING PHYSICIAN STATEMENT I saw and evaluated the patient. I reviewed the resident's note and discussed the case with the resident. I agree with the resident's findings and plan as documented. SUBJECTIVE: 52 year old female s/p trip and fall in hospital parking lot followed by episode of possible seizure. She was fully alert and oriented upon arrival to ED and had no postictal state noted . Denies history of seizure. In the ED c/o generalized body pain and chest pain OBJECTIVE: Vital Signs Temperature Pulse Rate 111 H 08/14/17 19:59 Respiratory Rate 14 08/14/17 19:59 Blood Pressure 147/79 08/14/17 19:59 O2 Sat by Pulse Oximetry (%) 98 08/14/17 19:59 \ EARS, NOSE, THROAT: Ears normal, nares patent, oropharynx clear without exudates. Moist mucous membranes. NECK: Normal range of motion, supple without lymphadenopathy, JVD, or masses. LUNGS: Breath sounds equal, clear to auscultation bilaterally. No wheezes, and no crackles. No accessory muscle use. HEART: Tachycardic rate and rhythm, normal S1 and S2 without murmur, rub or gallop. ABDOMEN: Soft, obese, nontender, mildly distended, normoactive bowel sounds, no guarding, no rebound, no masses. LOWER EXTREMITIES: 2+ posterior tibial pulses, warm, well-perfused. No calf tenderness. No peripheral edema. CBC, BMP 08/14/17 20:10 08/14/17 20:10 ASSESSMENT AND PLAN: 1. Atypical CP, EKG is WNL , trop negative x 1 - repeat troponins - IVF 2. Possible seizure episode - monitor - reinstate klonopin 3. DM - c/w lantus and SS OBS
[2017-08-15] MEDS ORDERED: INSULIN SLIDING SCALE (NOVOLOG) 1 VIAL SQ SCH (07:00)
[2017-08-15 08:02] LABS: HEMATOCRIT 32.3 % (32.4-45.2); HEMOGLOBIN 10.3 GM/dL (10.7-15.3); MCH 24.4 pg (25.7-33.7); MCHC 31.9 g/dl (32.0-36.0); MEAN CELL VOLUME 76.3 fl (80-96); MEAN PLT VOLUME 9.7 fl (7.5-11.1); PLATELET COUNT 200 K/MM3 (134-434); RBC 4.24 M/mm3 (3.60-5.2); RDW 14.7 % (11.6-15.6); WHITE BLOOD COUNT 8.7 K/mm3 (4.0-10.0)
--- NOTE | 2017-08-15 08:15 | PN ---
Physical Exam: SUBJECTIVE: Patient seen and examined t bedside. she complain of generalized weakness, med epigastric pain , last time eat 3 pm yesterday , she denies any V/ D/ but reprots constipation for the past 5 days, she denies any fever, chills, palpitation, chest pain has been improved. OBJECTIVE: Vital Signs Period Temp Pulse Resp BP Sys/Giron Pulse Ox Last 24 Hr 98.6 F 88-111 14-18 120-147/69-79 98-100 GENERAL: The patient is awake, alert, and fully oriented, in no acute distress. HEAD: Normal with no signs of trauma. EYES: PERRL, extraocular movements intact, sclera anicteric, conjunctiva clear. No ptosis. ENT: Ears normal, nares patent, oropharynx clear without exudates, moist mucous membranes. NECK: Trachea midline, full range of motion, supple. LUNGS: Breath sounds equal, clear to auscultation bilaterally, no wheezes, no crackles, no accessory muscle use. HEART: Regular rate and rhythm, S1, S2 without murmur, rub or gallop. ABDOMEN: Soft, nontender, nondistended, normoactive bowel sounds, no guarding, no rebound, no hepatosplenomegaly, no masses. EXTREMITIES: 2+ pulses, warm, well-perfused, no edema. NEUROLOGICAL: Cranial nerves II through XII grossly intact. Normal speech, gait not observed.left side residual weakness, strength 4/5 left side compare to 5/5 on right side. sensation decreased on left side. PSYCH: Normal mood, normal affect. SKIN: Warm, dry, no rashes or lesions noted Laboratory Results - last 24 hr 08/14/17 08/14/17 08/14/17 19:56 20:06 20:10 WBC 10.1 H RBC 4.80 Hgb 11.8 D Hct 36.3 MCV 75.5 L MCH 24.5 L MCHC 32.4 RDW 14.8 Plt Count 229 MPV 9.3 Neutrophils % 60.0 Lymphocytes % 28.7 Monocytes % 7.3 Eosinophils % 3.5 Basophils % 0.5 Sodium Potassium Chloride Carbon Dioxide Anion Gap BUN Creatinine Creat Clearance w eGFR POC Glucometer [phone] Random Glucose Lactic Acid Calcium Total Bilirubin AST ALT Alkaline Phosphatase Creatine Kinase Troponin I Total Protein Albumin Urine Color Urine Appearance Urine pH Ur Specific [place] Urine Protein Urine Glucose (UA) Urine Ketones Urine Blood Urine Nitrite Urine Bilirubin Urine Urobilinogen Ur Leukocyte Esterase Acetone, Qual Negative L 08/14/17 08/14/17 08/14/17 20:10 20:10 20:37 WBC RBC Hgb Hct MCV MCH MCHC RDW Plt Count MPV Neutrophils % Lymphocytes % Monocytes % Eosinophils % Basophils % Sodium 138 Potassium 3.9 Chloride 104 Carbon Dioxide 24 Anion Gap 10 BUN 13 Creatinine 1.1 H Creat Clearance w eGFR 52.58 POC Glucometer Random Glucose 271 H Lactic Acid 2.1 H Calcium 8.3 L Total Bilirubin 0.2 AST 11 L ALT 17 Alkaline Phosphatase 91 Creatine Kinase 81 Troponin I < 0.02 Total Protein 7.6 Albumin 3.5 Urine Color Straw Urine Appearance Clear Urine pH 8.0 Ur Specific [place] 1.010 Urine Protein Negative Urine Glucose (UA) 2+ H Urine Ketones Negative Urine Blood Negative Urine Nitrite Negative Urine Bilirubin Negative Urine Urobilinogen 2.0 H Ur Leukocyte Esterase Negative Acetone, Qual Active Medications Generic Name Dose Route Start Last Admin Trade Name Freq PRN Reason Stop Dose Admin Acetaminophen 325 mg 08/15/17 04:35 Tylenol - PO Q12H PRN PAIN LEVEL 6-10 Albuterol Sulfate 2 puff 08/15/17 01:25 08/15/17 02:36 Ventolin Hfa Inhaler - IH 2 puff RQID SHAUN Administration Aspirin 81 mg 08/15/17 10:00 Asa - PO DAILY SHAUN Clonazepam 0.5 mg 08/15/17 04:14 Klonopin - PO BID PRN ANXIETY Fluoxetine HCl 40 mg 08/15/17 10:00 Prozac - PO DAILY [facility] Gabapentin 600 mg 08/15/17 10:00 Neurontin - PO BID [facility] Heparin Sodium (Porcine) 5,000 unit 08/15/17 00:30 08/15/17 01:25 Heparin - SQ 5,000 unit BID SHAUN Administration Sodium Chloride 1,000 mls @ 75 mls/hr 08/15/17 00:30 08/15/17 01:25 Normal Saline - IV 75 mls/hr ASDIR SHAUN Administration Insulin Aspart 1 vial 08/15/17 07:00 Novolog Vial Sliding Scale - SQ ACHS [facility] Protocol Insulin Detemir 50 units 08/15/17 07:00 Levemir Vial SQ AM SHAUN Lorazepam 0.5 mg 08/15/17 01:04 Ativan - PO Q6H PRN ANXIETY Meclizine HCl 12.5 mg 08/15/17 04:20 Antivert - PO Q6H PRN VERTIGO Oxycodone HCl 5 mg 08/15/17 04:35 Roxicodone - PO Q12H PRN PAIN LEVEL 6-10 Topiramate 100 mg 08/15/17 10:00 Topamax - PO BID SHAUN ASSESSMENT/PLAN: 52 y/o F with PMH seizure disorder (was on Keppra in past, currently not on), syncopal episodes (most recently 05/2017), HTN, who presented to the ED after supposed witnessed fall and seizure by family. Pt being admitted to tele to r/o ACS. # chest pain , resolved likely Musculosceletal, r/o ACS -unlikely, as pt EKG is normal, initial troponin negative -pt with "chest pressure" on exertion -monitor pt on tele -troponins x 3 - next -started on aspirin 81mg qd -F/u lipid profile -started on statin 20 po HS #questionable seizure -witnessed by family "shaking arms and legs" -hx Keppra use in past, verify home meds with pharmacy -Continue topiramate 100mg BID -Continue gabapentin -seizure precautions - padding -Ativan 0.5 mg PRN #IDDM -insulin 50U -hold home oral liraglutide -ISS ACHS -BGM -F/u A1c #HTN- currently controlled -pt currently not on home BP meds #Asthma -Continue ventolin 1-2 puffs PO QID #Bipolar disorder -continue Prozac 40mg qd #Hypothyroidism -Continue levothyroxine #MRAILU -does not use CPAP currently -outpt sleep study #F/E/N -IV NS @ 75 mls/hr -Monitor electrolytes -Na controlled diet #PPX -DVT: Hep SQ 5000 BID #Dispo Tele monitoring, observation. Visit type - Emergency Visit Emergency Visit: Yes ED Registration Date: 08/15/17 Care time: The patient presented to the Emergency Department on the above date and was hospitalized for further evaluation of their emergent condition. - New Patient This patient is new to me today: Yes Date on this admission: 08/15/17 - Critical Care Critical Care patient: No - Discharge Referral Referred to [facility] No
[2017-08-15 08:22] LABS: CHOLESTEROL 151 mg/dL (50-200); HDL CHOLESTEROL 22 mg/dL (40-60); LDL CHOLESTEROL (ONLY SJRH) 99 mg/dL (5-100); TRIGLYCERIDES 227 mg/dL (35-160)
[2017-08-15 08:27] LABS: ANION GAP 9 (8-16); BLOOD UREA NITROGEN 13 mg/dL (7-18); CALCIUM 7.7 mg/dL (8.5-10.1); CHLORIDE 109 mmol/L (98-107); CO2 21 mmol/L (21-32); CREATININE 0.9 mg/dL (0.55-1.02); GLUCOSE,RANDOM 218 mg/dL (74-106); MAGNESIUM 1.6 mg/dL (1.8-2.4); PHOSPHOROUS 2.9 mg/dL (2.5-4.9); SODIUM 139 mmol/L (136-145)
[2017-08-15] MEDS: INSULIN DETEMIR 100 UNITS/ML MDV SQ SCH (08:50)
[2017-08-15] MEDS: INSULIN SLIDING SCALE (NOVOLOG) 1 VIAL SQ SCH ×4 (08:50→22:33)
[2017-08-15] MEDS ORDERED: INSULIN DETEMIR 100 UNITS/ML MDV SQ ONE (09:01)
[2017-08-15] MEDS ORDERED: INSULIN (NOVOLOG) ASPART 100 UNITS/ML 10ML VIAL ONE ×3 (09:02→22:25)
--- NOTE | 2017-08-15 09:08 | CON.NEURO ---
Consult Consult Specialty:: Neurology Referred by:: Dr. Green Reason for Consultation:: Seizure - History of Present Illness Chief Complaint: Seizure History of Present Illness: The patient is a 52F with a PMH of morbid obesity, HTN, insulin-dependent diabetes, hepatitis C virus, sleep apnea, asthma, anxiety, depression, bipolar, and questionable seizure disorder who presents to the ED after having a witnessed seizure. She says that she has a history of 3 prior seizures, and had been put on Keppra a "long time ago" though is vague about that. She last took Keppra a year ago, but has since been on Topamax 100 mg BID she says, because of her mood. She says that she had had a stroke in the past with residual left sided weakness and has had a normal EEG. 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: CVA, Seizure, TIA Cardio/Vascular: Yes: CAD, HTN, Hyperlipdemia Pulmonary: Yes: Sleep Apnea ...LMP: 08/19/14 Infectious Disease: Yes: Other (Hep C) Psych: Yes: Anxiety, Bipolar Endocrine: Yes: Diabetes Mellitus - Past Surgical History Past Surgical History: Yes: - Alcohol/Substance Use Hx Alcohol Use: No - Smoking History Smoking history: Unknown if ever smoked Have you smoked in the past 12 months: No If you are a former smoker, when did you quit?: 3 years ago - Social History Usual Living Arrangement: Alone ADL: Independent History of Recent Travel: No Home Medications - Allergies Allergies/Adverse Reactions: Allergies Allergy/AdvReac Type Severity Reaction Status Date / Time Iodinated Contrast- Oral and Allergy Intermediate Itching Verified 08/14/17 19: 58 IV Dye [Iodinated Contrast Media - IV Dye] tramadol AdvReac Verified 08/14/17 19:58 - Home Medications Home Medications: Ambulatory Orders Fluoxetine HCl [Prozac -] 40 mg PO DAILY 09/15/14 Gabapentin [Neurontin -] 600 mg PO BID 09/15/14 [place]-3 Fatty Acids [[place]ford-3] 1,000 mg PO BID 09/15/14 Albuterol Sulfate Inhaler - [Ventolin HFA Inhaler -] 1 - 2 inh PO QID 03/15/16 Gabapentin 900 mg PO HS 08/16/17 Insulin Glargine,Hum.rec.anlog [Lantus Solostar PEN -] 50 units SQ AM 03/15/17 Liraglutide [Victoza -] 1.8 mg SQ DAILY@1200 03/15/17 Topiramate [Topamax] 100 mg PO BID 03/15/17 Clonazepam [Klonopin -] 0.5 mg PO BID PRN 05/12/17 Meclizine HCl [Antivert -] 12.5 mg PO Q6H PRN #20 tablet 06/27/17 Hydrocodone/Acetaminophen [Hydrocodon-Acetaminophn 10-325] 1 each PO BID PRN # 60 tablet MDD 2 07/17/17 Family Disease History - Family Disease History Family Disease History: Diabetes: Brother, Sister, Other: Daughter Physical Exam-Neuro Vital Signs: Vital Signs Temperature 98.6 F 08/15/17 05:45 Pulse Rate 90 08/15/17 05:45 Respiratory Rate 17 08/15/17 05:45 Blood Pressure 125/79 08/15/17 05:45 O2 Sat by Pulse Oximetry (%) 99 08/15/17 05:45 Constitutional: Yes: Obese Labs: CBC, BMP 08/15/17 06:30 08/15/17 06:30 - Neuro Exam Level Of Consciousness: Yes: Alert, Oriented to Person, Oriented to Place, Oriented to Time Eyes: Yes: JANETH Speech: WNL Cranial Nerves II-XII Intact: Yes DTR's: 0 Left Achilles, 0 Right Achilles, 2+ Left Bicep, 2+ Right Bicep, 2+ Left Tricep, 2+ Right Tricep, 2+ Left Brachioradialis, 2+ Right Brachioradialis Babinski: Present (left) Response to light touch: Normal Motor Strength: 4/5: Left Arm, Left Leg, 5/5: Right Arm, Right Leg Gait: Deferred Imaging - Results Cat Scan: Report Reviewed, Image Reviewed (No discrete stroke noted.) Problem List - Problems (1) Epilepsy Code(s): G40.909 - EPILEPSY, UNSP, NOT INTRACTABLE, WITHOUT STATUS EPILEPTICUS (2) History of stroke Code(s): Z86.73 - PRSNL HX OF TIA (TIA), AND CEREB INFRC W/O RESID DEFICITS Assessment/Plan 52 year old, morbidly obese, hypertensive, diabetic with reported history of stroke and seizures, who present with a seizure. She is not on what I would consider a therapeutic dose of an anticonvulsant but as she is not a reliable historian I am not sure if that is because she is not followed by a neurologist or because she was determined to have non-electrical seizures. She will need outpatient f.u. and I believe Dr. Wagner is in her plan, so he'd be a good candidate. I would get EEG and MRI brain. If she cannot be accomodated in the MRI that we have here due to her size, this can be deferred to outpatient setting. Increase topiramate to 150 mg BID. Seizure precautions. Thanks. We'll follow with you (Dr. Gonsales is covering for me tomorrow).
[2017-08-15] MEDS ORDERED: TOPIRAMATE 100 MG TABLET PO SCH (10:00)
[2017-08-15] MEDS ORDERED: FLUoxetine HCL 20 MG CAPSULE (FP) PO SCH (10:00)
--- NOTE | 2017-08-15 10:40 | EKG ---
Test Reason : Blood Pressure : / mmHG Vent. Rate : 115 BPM Atrial Rate : 115 BPM P-R Int : 150 ms QRS Dur : 086 ms QT Int : 344 ms P-R-T Axes : 059 -46 043 degrees QTc Int : 475 ms SINUS TACHYCARDIA LEFT ANTERIOR FASCICULAR BLOCK MINIMAL VOLTAGE CRITERIA FOR LVH, MAY BE NORMAL VARIANT ABNORMAL ECG WHEN COMPARED WITH ECG OF 09-JUL-2017 16:30, NO SIGNIFICANT CHANGE WAS FOUND Confirmed by MD Colin, Jimenez ([id number]) on 08/15/2017 10:40:53 AM Referred By: Confirmed By:Jimenez Shaw MD
[2017-08-15] MEDS: ASPIRIN 81 MG CHEWABLE TABLETS PO SCH (11:20)
[2017-08-15] MEDS: GABAPENTIN 300 MG CAPSULE (FP) PO SCH ×2 (11:20→22:34)
[2017-08-15] MEDS: TOPIRAMATE 100 MG TABLET PO SCH ×2 (11:20→22:46)
[2017-08-15] MEDS: FLUoxetine HCL 20 MG CAPSULE (FP) PO SCH (11:20)
--- NOTE | 2017-08-15 15:12 | PN ---
Teaching Attending Note Name of Resident: Vicente Cardoza ATTENDING PHYSICIAN STATEMENT I saw and evaluated the patient. I reviewed the resident's note and discussed the case with the resident. I agree with the resident's findings and plan as documented. SUBJECTIVE: pt was awoken form sleep. No fever or chills. reports tremor and body shakes as we speak ( but was not shaking when she was asleep ) . victor snot remember events. reports not being on depakote and not on keppra any more . victor snot follow with neurologist . denies any SOB OBJECTIVE: NAD , plesant obese female CV: RRR, no MRG Lungs: CTAB ext: no edema Neuro: no facial droop, EOMI, tongue and uvula at mid line, nl facial sensation , strength 4/5 in L shoulder abduction, L biceps and tricecps , L knee flexion and extension , and L dorsiflexion. 5/5 in R shoulder abduction, biceps, triceps, hip flexion, knee flexion and extension and ankle dorsiflexionad plantar flexion. sensation to light touch decreased in L sided but not face ASSESSMENT AND PLAN: 52 y/o lady with h/o recurrent syncopes, possible recurrent seizures, CVA , HTN , Bipolar , IDDM, , hypothyroidism and other medical problems who presented with syncope and body shakes . 1- syncope: likely vasovagal, no suspicion for ACS , EKG with L axis , and no acute ischemic changes . shaking activity might be due to convulsive syncope , but also could be convulsive seizure or non epileptic seizures. - MRI - EEG ( results to be followed by neuro as outpt ) - f/u with neuro - increase topamax to 150 BID 2- Atypical cp , resolved , non cardiac 3- Dm : cont insulin, resume home regimen at dc 4- h/o CVA : not on asa at home, ( iwll confirm ) , has residual L sided weakness. LDL 99 , start lipitor - start ASA and dc on it 5- dispo : will dc home after MRI and EEG
--- NOTE | 2017-08-15 18:42 | DS ---
Physical Exam: SUBJECTIVE: Patient seen and examined at bedside. she claims her chest pain has resolved , denies any dizziness, lightheadedness, N/V/D. Patient is asking to go home she said she is feeling better. OBJECTIVE: Vital Signs Period Temp Pulse Resp BP Sys/Giron Pulse Ox Last 24 Hr 98 F-98.6 F 88-111 14-20 120-147/57-79 98-100 PHYSICAL EXAM GENERAL: The patient is awake, alert, and fully oriented, in no acute distress. HEAD: Normal with no signs of trauma. EYES: PERRL, extraocular movements intact, sclera anicteric, conjunctiva clear. ENT: moist mucous membranes. NECK: supple with FROM. LUNGS: Breath sounds equal, clear to auscultation bilaterally, no wheezes, no crackles, no accessory muscle use. HEART: Regular rate and rhythm, S1, S2 without murmur, rub or gallop. ABDOMEN:Obese Soft, nontender, nondistended, normoactive bowel sounds, no guarding, no rebound, EXTREMITIES: 2+ pulses, warm, well-perfused, no edema. NEUROLOGICAL: Cranial nerves II through XII grossly intact. Normal speech, gait not observed.left side residual weakness, strength 4/5 on left side, 5/5 right side. sensation decreased on left side. PSYCH: Normal mood, normal affect. SKIN: Warm, dry, no rashes or lesions noted. LABS Laboratory Results - last 24 hr 08/14/17 08/14/17 08/14/17 19:56 20:06 20:10 WBC 10.1 H RBC 4.80 Hgb 11.8 D Hct 36.3 MCV 75.5 L MCH 24.5 L MCHC 32.4 RDW 14.8 Plt Count 229 MPV 9.3 Neutrophils % 60.0 Lymphocytes % 28.7 Monocytes % 7.3 Eosinophils % 3.5 Basophils % 0.5 Sodium Potassium Chloride Carbon Dioxide Anion Gap BUN Creatinine Creat Clearance w eGFR POC Glucometer [phone] Random Glucose Hemoglobin A1c % Lactic Acid Calcium Phosphorus Magnesium Total Bilirubin AST ALT Alkaline Phosphatase Creatine Kinase Troponin I Total Protein Albumin Triglycerides Cholesterol Total LDL Cholesterol HDL Cholesterol Urine Color Urine Appearance Urine pH Ur Specific [place] Urine Protein Urine Glucose (UA) Urine Ketones Urine Blood Urine Nitrite Urine Bilirubin Urine Urobilinogen Ur Leukocyte Esterase Acetone, Qual Negative L 08/14/17 08/14/1708/14/18 20:10 20:10 20:37 WBC RBC Hgb Hct MCV MCH MCHC RDW Plt Count MPV Neutrophils % Lymphocytes % Monocytes % Eosinophils % Basophils % Sodium 138 Potassium 3.9 Chloride 104 Carbon Dioxide 24 Anion Gap 10 BUN 13 Creatinine 1.1 H Creat Clearance w eGFR 52.58 POC Glucometer Random Glucose 271 H Hemoglobin A1c % Lactic Acid 2.1 H Calcium 8.3 L Phosphorus Magnesium Total Bilirubin 0.2 AST 11 L ALT 17 Alkaline Phosphatase 91 Creatine Kinase 81 Troponin I < 0.02 Total Protein 7.6 Albumin 3.5 Triglycerides Cholesterol Total LDL Cholesterol HDL Cholesterol Urine Color Straw Urine Appearance Clear Urine pH 8.0 Ur Specific [place] 1.010 Urine Protein Negative Urine Glucose (UA) 2+ H Urine Ketones Negative Urine Blood Negative Urine Nitrite Negative Urine Bilirubin Negative Urine Urobilinogen 2.0 H Ur Leukocyte Esterase Negative Acetone, Qual 08/15/17 08/15/17 08/15/17 06:30 06:30 06:30 WBC 8.7 RBC 4.24 Hgb 10.3 L D Hct 32.3 L MCV 76.3 L MCH 24.4 L MCHC 31.9 L RDW 14.7 Plt Count 200 MPV 9.7 Neutrophils % Lymphocytes % Monocytes % Eosinophils % Basophils % Sodium 139 Potassium 4.0 Chloride 109 H Carbon Dioxide 21 Anion Gap 9 BUN 13 Creatinine 0.9 Creat Clearance w eGFR POC Glucometer Random Glucose 218 H Hemoglobin A1c % Lactic Acid Calcium 7.7 L Phosphorus 2.9 Magnesium 1.6 L Total Bilirubin AST ALT Alkaline Phosphatase Creatine Kinase Troponin I < 0.02 Total Protein Albumin Triglycerides Cholesterol Total LDL Cholesterol HDL Cholesterol Urine Color Urine Appearance Urine pH Ur Specific [place] Urine Protein Urine Glucose (UA) Urine Ketones Urine Blood Urine Nitrite Urine Bilirubin Urine Urobilinogen Ur Leukocyte Esterase Acetone, Qual 08/15/17 08/15/17 08/15/17 07:43 07:43 08:52 WBC RBC Hgb Hct MCV MCH MCHC RDW Plt Count MPV Neutrophils % Lymphocytes % Monocytes % Eosinophils % Basophils % Sodium Potassium Chloride Carbon Dioxide Anion Gap BUN Creatinine Creat Clearance w eGFR POC Glucometer [phone] Random Glucose Hemoglobin A1c % 9.2 H D Lactic Acid Calcium Phosphorus Magnesium Total Bilirubin AST ALT Alkaline Phosphatase Creatine Kinase Troponin I Total Protein Albumin Triglycerides 227 H D Cholesterol 151 Total LDL Cholesterol 99 HDL Cholesterol 22 L Urine Color Urine Appearance Urine pH Ur Specific [place] Urine Protein Urine Glucose (UA) Urine Ketones Urine Blood Urine Nitrite Urine Bilirubin Urine Urobilinogen Ur Leukocyte Esterase Acetone, Qual 08/15/17 08/15/17 09:10 12:12 WBC RBC Hgb Hct MCV MCH MCHC RDW Plt Count MPV Neutrophils % Lymphocytes % Monocytes % Eosinophils % Basophils % Sodium Potassium Chloride Carbon Dioxide Anion Gap BUN Creatinine Creat Clearance w eGFR POC Glucometer [phone] Random Glucose Hemoglobin A1c % Lactic Acid 1.1 Calcium Phosphorus Magnesium Total Bilirubin AST ALT Alkaline Phosphatase Creatine Kinase Troponin I Total Protein Albumin Triglycerides Cholesterol Total LDL Cholesterol HDL Cholesterol Urine Color Urine Appearance Urine pH Ur Specific [place] Urine Protein Urine Glucose (UA) Urine Ketones Urine Blood Urine Nitrite Urine Bilirubin Urine Urobilinogen Ur Leukocyte Esterase Acetone, Qual HOSPITAL COURSE: Date of Admission:08/15/17 Date of Discharge: 08/15/17 52 y/o lady with h/o recurrent syncopes, possible recurrent seizures, CVA , HTN , Bipolar , IDDM, , hypothyroidism and other medical problems who presented with syncope and body shakes . In term of syncope likely vasovagal, no suspicion for ACS , EKG with L axis , and no acute ischemic changes . shaking activity might be due to convulsive syncope , but also could be convulsive seizure or non epileptic seizures. MRI declined by patient , EEG results to be followed by neuro as outpt( it might not be done but it will not change the management), will f/u with neurologist as out patient and topamax was increased to 150 BID In term of Atypical cp , resolved , non cardiac In term of DM patient will continue insulin, resume home regimen at [place] Patient has a h/o CVA will continue with ASA 81 mg po daily , has has residual L sided weakness. LDL 99 , start lipitor 20 mg PO daily HS Patient will be discharged home , will follow with neurologist as out patient. Minutes to complete discharge: 40 Discharge Summary Reason For Visit: LIGHTHEADEDNESS Current Active Problems Epilepsy (Chronic) Condition: Improved - Instructions Diet, Activity, Other Instructions: You were seen in the ER for suspected seizure. MRI brain was not done per your request , You will follow up with as out patient. Please take your medicine as prescribed Please resume your home meds as prescribed Your Topiramate dose was increased to 150 mg twice daily You will start taking lipitor 20mg once daily from now on for your elevated cholesterol Do not drive, until cleared by the neurologist Please follow up with your Primary care physician within a week Please follow up with Neurolgogist within a week as you may need further MRI and EEG Please follow strict diet to loose weight and exercise daily as tolerated Please come to the ER if you experience shaking, unconsciousness, fainting, confusion, severe headache. Referrals: Jhonathan Wagner DO [Staff Physician] - 2 Weeks Disposition: HOME - Home Medications Comprehensive Discharge Medication List: Ambulatory Orders Fluoxetine HCl [Prozac -] 40 mg PO DAILY 09/15/14 Gabapentin [Neurontin -] 600 mg PO BID 09/15/14 [place]-3 Fatty Acids [[place]-3] 1,000 mg PO BID 09/15/14 Albuterol Sulfate Inhaler - [Ventolin HFA Inhaler -] 1 - 2 inh PO QID 03/15/16 Gabapentin 900 mg PO HS 03/15/17 Insulin Glargine,Hum.rec.anlog [Lantus Solostar PEN -] 50 units SQ AM 03/15/17 Liraglutide [Victoza -] 1.8 mg SQ DAILY@1200 03/15/17 Clonazepam [Klonopin -] 0.5 mg PO BID PRN 05/12/17 Meclizine HCl [Antivert -] 12.5 mg PO Q6H PRN #20 tablet 06/27/17 Hydrocodone/Acetaminophen [Hydrocodone-Acetamin 10-325 mg] 1 each PO BID PRN # 60 tablet MDD 2 07/17/17 Aspirin 81 mg PO DAILY 08/15/17 Atorvastatin Ca [Lipitor] 20 mg NR ONCE 30 Days #30 tablet 08/15/17 Ergocalciferol (Vitamin D2) [Vitamin D2] 50,000 units PO WEEKLY 08/15/17 Levothyroxine [Synthroid -] 50 mcg PO DAILY 08/15/17 Topiramate [Topamax] 150 mg PO BID 30 Days #60 tablet 08/15/17 This patient is new to me today: Yes Date on this admission: 08/15/17 Emergency Visit: Yes ED Registration Date: 08/15/17 Care time: The patient presented to the Emergency Department on the above date and was hospitalized for further evaluation of their emergent condition. Critical Care patient: No - Discharge Referral Referred to [facility] No
[2017-08-15] MEDS ORDERED: ATORVASTATIN CA 20 MG TABLET (FP) PO SCH (22:00)
[2017-08-15] MEDS ORDERED: SENNOSIDES 8.6MG TABLET (FP) PO SCH (22:00)
[2017-08-15] MEDS ORDERED: PT OWN MED DRAWER 7, Y5N ONE (22:25)
[2017-08-16] MEDS: SODIUM CHLORIDE 1,000 ML IV SCH (06:17)
[2017-08-16] MEDS: INSULIN DETEMIR 100 UNITS/ML MDV SQ SCH (06:17)
[2017-08-16] MEDS: INSULIN SLIDING SCALE (NOVOLOG) 1 VIAL SQ SCH (06:17)
[2017-08-16] MEDS ORDERED: INSULIN (NOVOLOG) ASPART 100 UNITS/ML 10ML VIAL ONE (06:23)
[2017-08-16] MEDS: ALBUTEROL SO4 18 GM HFA INHALER IH SCH (08:00)
[2017-08-16] MEDS ORDERED: LORazepam 2 MG/ML SDV VIAL IVPUSH ONE (08:01)
[2017-08-16] MEDS: ASPIRIN 81 MG CHEWABLE TABLETS PO SCH (09:13)
[2017-08-16] MEDS: GABAPENTIN 300 MG CAPSULE (FP) PO SCH (09:13)
[2017-08-16] MEDS: FLUoxetine HCL 20 MG CAPSULE (FP) PO SCH (09:13)
[2017-08-16] MEDS: HEPARIN NA (PORCINE) 5,000 UNITS/ML 1ML VIAL SQ SCH (09:14)
[2017-08-16] MEDS: TOPIRAMATE 100 MG TABLET PO SCH (09:18)
[2017-08-16 11:04] VITALS: BP 110/70; PULSE 80; TEMP 98
--- NOTE | 2017-08-18 15:14 | EKG ---
Test Reason : Blood Pressure : / mmHG Vent. Rate : 097 BPM Atrial Rate : 097 BPM P-R Int : 154 ms QRS Dur : 086 ms QT Int : 380 ms P-R-T Axes : 057 -37 048 degrees QTc Int : 482 ms NORMAL SINUS RHYTHM LEFT AXIS DEVIATION PROLONGED QT ABNORMAL ECG WHEN COMPARED WITH ECG OF 14-AUG-2017 19:54, NO SIGNIFICANT CHANGE WAS FOUND Confirmed by MD NEGRITO, CLEM ([id number]) on 08/18/2017 3:14:07 PM Referred By: Confirmed By:CLEM MAHAN MD
== END 2017-08-16 11:03 | disposition home or self-care (01) ==
LOC: JER 19:51 → OBSVTOIN 08-15 00:40 → INTOOBSV 08-15 00:40 → JERBED 08-15 00:40 → J4S 08-15 17:30
PROVIDERS: ADMIT Internal Medicine; ATTEND Internal Medicine
PROC: 3E0337Z Introduction of Electrolytic and Water Balance Substance into Peripheral Vein, Percutaneous Approach (ICD-10-PCS; principal; 2017-08-15)
PROC: 3E013VG Introduction of Insulin into Subcutaneous Tissue, Percutaneous Approach (ICD-10-PCS; 2017-08-15)
PROC: 3E0F7GC Introduction of Other Therapeutic Substance into Respiratory Tract, Via Natural or Artificial Opening (ICD-10-PCS; 2017-08-15)
DX: R55 Syncope and collapse (principal); R42 Dizziness and giddiness; G40.909 Epilepsy, unspecified, not intractable, without status epilepticus; I10 Essential (primary) hypertension; I25.10 Atherosclerotic heart disease of native coronary artery without angina pectoris; B18.2 Chronic viral hepatitis C; F41.9 Anxiety disorder, unspecified; E11.40 Type 2 diabetes mellitus with diabetic neuropathy, unspecified; Z79.4 Long term (current) use of insulin; G47.33 Obstructive sleep apnea (adult) (pediatric); J45.909 Unspecified asthma, uncomplicated; E66.01 Morbid (severe) obesity due to excess calories; Z68.42 Body mass index [BMI] 45.0-49.9, adult; R07.89 Other chest pain; F31.9 Bipolar disorder, unspecified; E03.9 Hypothyroidism, unspecified; K74.60 Unspecified cirrhosis of liver; Z86.73 Personal history of transient ischemic attack (TIA), and cerebral infarction without residual deficits; W01.0XXA Fall on same level from slipping, tripping and stumbling without subsequent striking against object, initial encounter; Y93.01 Activity, walking, marching and hiking; Y92.238 Other place in hospital as the place of occurrence of the external cause
CPT/HCPCS: 36415; 70450-TC; 70551-TC; 71045-TC; 80048; 80053; 80061; 81003; 82009; 82550; 82962; 83036; 83605; 83721; 83735; 84100; 84484; 85025; 85027; 93005; 93010; 94640; 95816; 96372; 99285-25; G0378

== ENCOUNTER 2017-09-09 10:43 | Inpatient (IN) | payer OTHER ==
[2017-09-09 10:54] VITALS: BMI 46.8
--- NOTE | 2017-09-09 10:58 | PDOC ---
History of Present Illness - General Chief Complaint: Respiratory Stated Complaint: SOB, BODYACHES Time Seen by Provider: 09/09/17 10:55 History Source: Patient Exam Limitations: No Limitations - History of Present Illness Initial Comments: CHIEF COMPLAINT: 52 y/o afebrile female with PMH HTN, HLD, IDDM, asthma, vertigo, hypothyroidism c/o flu like symptoms since yesterday. HISTORY OF PRESENT ILLNESS: The patient admits yesterday she felt weak, losing consciousness 2 times at home. her aide admits she did hit her head but refused to go to the hospital. She also admits to chills without fever, dry cough, chest discomfort and SOB. She states this morning she woke up and her sugar was almost 400, which is very unusual for her. She denies SANTOS, changes in vision/hearing, runny nose, earache, sore throat, n/v/d, abd pain, back pain, hematuria, dysuria. She took Motrin around 4am for her symptoms with little relief, and has been using her Ventolin inhaler for SOB without relief. Vital signs on arrival are notable for pulse of 112. REVIEW OF SYSTEMS: GENERAL/CONSTITUTIONAL: +chills. +weakness. No fever. No weakness. No weight change. HEAD, EYES, EARS, NOSE AND THROAT: No change in vision. No ear pain or discharge. No sore throat. CARDIOVASCULAR: +chest discomfort and SOB. RESPIRATORY: +dry cough. No wheezing or hemoptysis. GASTROINTESTINAL: See history of present illness. GENITOURINARY: No dysuria, frequency, or change in urination. MUSCULOSKELETAL: No joint or muscle swelling or pain. No neck or back pain. SKIN: No rash or easy bruising. NEUROLOGIC: No headache, vertigo, loss of consciousness, or loss of sensation. PHYSICAL EXAM: GENERAL: The patient is awake, alert, and fully oriented, in mild respiratory distress, winded with talking but able to speak in full sentences. HEAD: Normal with no signs of trauma. No hematomas. ENT: Pupils equal, round and reactive to light, extraocular movements intact, sclera anicteric, conjunctiva clear. No fruity odor to breath. LUNGS: Clear to auscultation bilaterally. Normal excursion. No respiratory distress or use of accessory muscles. CV: tachycardic with regular rhythm, S1/S2, no MRG. Cap refill < 2 sec. ABDOMEN: Soft, non-distended, non-tender even to deep palpation, no hepatomegaly or splenomegaly, no masses. EXTREMITIES: Normal range of motion, no edema. NEUROLOGICAL: Normal speech, normal gait. CN II-XII grossly intact. SKIN: Warm, dry, normal turgor, no rashes or lesions noted. Past History - Past Medical History Allergies/Adverse Reactions: Allergies Allergy/AdvReac Type Severity Reaction Status Date / Time Iodinated Contrast- Oral and Allergy Intermediate Itching Verified 09/09/17 10: 51 IV Dye [Iodinated Contrast Media - IV Dye] tramadol AdvReac Verified 09/09/17 10:51 Home Medications: Ambulatory Orders Fluoxetine HCl [Prozac -] 40 mg PO DAILY 09/15/14 Gabapentin [Neurontin -] 600 mg PO BID 09/15/14 Dexter-3 Fatty Acids [Dexter-3] 1,000 mg PO BID 09/15/14 Albuterol Sulfate Inhaler - [Ventolin HFA Inhaler -] 1 - 2 inh PO QID 03/15/16 Gabapentin 900 mg PO HS 03/15/17 Insulin Glargine,Hum.rec.anlog [Lantus Solostar PEN -] 50 units SQ AM 03/15/17 Liraglutide [Victoza -] 1.8 mg SQ DAILY@1200 03/15/17 clonazePAM [Klonopin -] 0.5 mg PO BID PRN 05/12/17 Meclizine HCl [Antivert -] 12.5 mg PO Q6H PRN #20 tablet 06/27/17 Aspirin 81 mg PO DAILY 08/15/17 Ergocalciferol (Vitamin D2) [Vitamin D2] 50,000 units PO WEEKLY 08/15/17 Levothyroxine [Synthroid -] 50 mcg PO DAILY 08/15/17 Topiramate [Topamax] 150 mg PO BID 30 Days #60 tablet 08/15/17 Hydrocodone/Acetaminophen [Hydrocodone-Acetamin 10-325 mg] 1 each PO BID PRN # 60 tablet MDD 2 08/21/17 Atorvastatin Ca [Lipitor] 20 mg PO HS 09/09/17 Insulin (LOG) Aspart [NovoLOG -] 0 units SQ TID 09/09/17 Tiotropium [place] [Spiriva] 1 inh PO DAILY 09/09/17 Asthma: Yes Cardiac Disorders: No CVA: Yes (wkness on lt side) COPD: No CHF: No Dementia: No Diabetes: Yes (on meds) GI Disorders: No Disorders: No HTN: Yes Hypercholesterolemia: Yes Liver Disease: Yes (hep C - treated) Psychiatric Problems: Yes (depression, anxiety, BIPOLAR) Seizures: Yes (long time ago) Thyroid Disease: Yes (hypothyroid) - Surgical History Abdominal Surgery: Yes (UMBILICAL HERNIA) - Suicide/Smoking/Psychosocial Hx Smoking History: Former smoker Have you smoked in the past 12 months: No If you are a former smoker, when did you quit?: 3 years ago Information on smoking cessation initiated: No 'Breaking Loose' booklet given: 09/16/14 Hx Alcohol Use: No Drug/Substance Use Hx: No Substance Use Type: None Hx Substance Use Treatment: No *Physical Exam - Vital Signs Last Vital Signs Temp Pulse Resp BP Pulse Ox 97.8 F 112 H 20 108/82 98 09/09/17 10:49 09/09/17 10:49 09/09/17 10:49 09/09/17 10:49 09/09/17 10:49 Heart Score/ECG Review - ECG Intrepretation Comment:: Twelve-lead EKG was performed and reviewed by Dr. Jc. There is normal sinus rhythm with sinus tachycardia. Left axis deviation. The intervals are normal. There are no ST or T wave abnormalities. Impression: Abnormal twelve-lead EKG ED Treatment Course - LABORATORY CBC & Chemistry Diagram: 09/09/17 11:13 09/09/17 11:50 Medical Decision Making - Medical Decision Making A/P: 52 y/o tachycardic female with c/o weakness, 2 episodes of LOC yesterday, dry cough, SOB and high sugars since yesterday. Plan is as follows: 1. Labs 2. EKG 3. CXR 4. UA/culture 5. IV fluids CXR IMPRESSION: No acute pathology Labs remarkable for glucose of 376. 2L IV fluids and 10 units insulin ordered Duoneb x 2 ordered After 2 duonebs patient remains SOB with conversation, tachycardic and O2 sat 96 % on RA. Concerned for PE. Will send for chest CTA. Also ordered IV tylenol and PO meclizine. Glucose now 210 Acetone negative The patient is allergic to IV dye. Will call nuclear plant instrument technician to come to the ER for a VQ scan. Patient remains out of breath during conversation. Repeat finger stick is now above range. Will do repeat BMP and admit. Spoke with Dr. Urias and he suggests starting anticoagulation for PE. Will start with SQ lovenox. Ordered PT/INR, type and screen, repeat trops Microblogged Hospitalist Spoke with Dr. Bonner and Dr. Ernandez. Will admit to Tele under Dr. Diaz. Dr. Urias is aware of the patient and will consult. Also ordered Head CT as patient remains dizzy. *DC/Admit/Observation/Transfer Diagnosis at time of Disposition: Hyperglycemia, Tachycardia, Shortness of breath, Weakness, Dizziness - Discharge Dispostion Condition at time of disposition: Fair Admit: Yes - Referrals Referrals: Damaris Solis MD [Primary Care Provider] - - Patient Instructions - Post Discharge Activity
[2017-09-09] MEDS ORDERED: SODIUM CHLORIDE 1,000 ML IV STA ×2 (11:13→12:45)
[2017-09-09 11:55] LABS: BASO % 0.5 % (0-2.0); EOS % 3.9 % (0-4.5); HEMATOCRIT 36.4 % (32.4-45.2); LYMPH % 23.4 % (8-40); MCH 24.9 pg (25.7-33.7); MCHC 33.1 g/dl (32.0-36.0); MEAN CELL VOLUME 75.3 fl (80-96); MONO % 7.5 % (3.8-10.2); NEUT % 64.7 % (42.8-82.8); PLATELET COUNT 211 K/MM3 (134-434); RBC 4.83 M/mm3 (3.60-5.2); RDW 15.1 % (11.6-15.6); WHITE BLOOD COUNT 8.8 K/mm3 (4.0-10.0)
[2017-09-09 12:03] LABS: URINE APPEARANCE CLEAR; URINE BILIRUBIN NEGATIVE (NEGATIVE); URINE BLOOD NEGATIVE (NEGATIVE); URINE COLOR STRAW; URINE GLUCOSE (UA) 3+ (NEGATIVE); URINE KETONE NEGATIVE (NEGATIVE); URINE LEUK ESTERASE NEGATIVE (NEGATIVE); URINE NITRITE NEGATIVE (NEGATIVE); URINE PROTEIN NEGATIVE (NEGATIVE); URINE UROBILINOGEN NEGATIVE mg/dL (0.2-1.0)
[2017-09-09 12:23] LABS: ALBUMIN 3.5 g/dl (3.4-5.0); ANION GAP 9 (8-16); BILIRUBIN,TOTAL 0.3 mg/dL (0.2-1.0); BLOOD UREA NITROGEN 16 mg/dL (7-18); CHLORIDE 100 mmol/L (98-107); CO2 26 mmol/L (21-32); CREATININE 1.1 mg/dL (0.55-1.02); POTASSIUM 4.1 mmol/L (3.5-5.1); SGOT/AST 10 U/L (15-37); SGPT/ALT 20 U/L (12-78); SODIUM 135 mmol/L (136-145); TOT PROT 7.7 g/dl (6.4-8.2)
[2017-09-09 12:25] LABS: GLUCOSE,RANDOM 376 mg/dL (74-106)
[2017-09-09 12:26] LABS: ALK PHOS 83 U/L (45-117)
[2017-09-09] MEDS ORDERED: INSULIN (NOVOLOG) ASPART 100 UNITS/ML 10ML VIAL SQ ONE (12:44)
[2017-09-09] MEDS ORDERED: INSULIN REGULAR HUMAN 100 UNITS/ML *VIAL ONE (13:08)
[2017-09-09] MEDS ORDERED: ALBUTEROL SO4 2.5/IPRATROPIUM 0.5 INH SOL 3 ML VIAL.NEB. NEB ONE (13:08)
[2017-09-09] MEDS: ALBUTEROL SO4 2.5/IPRATROPIUM 0.5 INH SOL 3 ML VIAL.NEB. NEB SCH ×2 (13:15→13:35)
[2017-09-09 13:44] LABS: ACETONE SERUM NEGATIVE (NEGATIVE)
[2017-09-09] MEDS ORDERED: ACETAMINOPHEN 1000 MG/100 ML VIAL (NON FORMULARY) IVPB ONE (14:16)
[2017-09-09] MEDS ORDERED: MECLIZINE HCL 25 MG TABLET (FP) PO ONE (14:16)
[2017-09-09] MEDS ORDERED: MECLIZINE HCL 25 MG TABLET (FP) ONE (14:17)
[2017-09-09] MEDS ORDERED: ACETAMINOPHEN INJECTION 100 ML IVPB ONE (14:17)
[2017-09-09] MEDS: SODIUM CHLORIDE FOR INHALATION 3 ML VIAL.NEB IH SCH ×4 (15:15→16:20)
--- NOTE | 2017-09-09 16:04 | EKG ---
Test Reason : Blood Pressure : / mmHG Vent. Rate : 112 BPM Atrial Rate : 112 BPM P-R Int : 148 ms QRS Dur : 084 ms QT Int : 354 ms P-R-T Axes : 049 -38 045 degrees QTc Int : 483 ms SINUS TACHYCARDIA LEFT AXIS DEVIATION MINIMAL VOLTAGE CRITERIA FOR LVH, MAY BE NORMAL VARIANT ABNORMAL ECG WHEN COMPARED WITH ECG OF 15-AUG-2017 16:43, NO SIGNIFICANT CHANGE WAS FOUND Confirmed by ARNALDO MENDOZA, ANA LUISA ([id number]) on 09/09/2017 4:04:12 PM Referred By: Confirmed By:ANA LUISA MCINTOSH MD
[2017-09-09] MEDS ORDERED: ENOXAPARIN NA (PORCINE) 100 MG/1 ML DISP.SYRIN SQ ONE ×2 (18:24→18:58)
[2017-09-09 19:31] LABS: INR 0.94 (0.82-1.09); PROTHROMBIN TIME (PATIENT) 10.6 SEC (9.98-11.88)
[2017-09-09 19:44] LABS: ANION GAP 8 (8-16); BLOOD UREA NITROGEN 15 mg/dL (7-18); CALCIUM 7.5 mg/dL (8.5-10.1); CHLORIDE 103 mmol/L (98-107); CO2 23 mmol/L (21-32); CREATININE 1.1 mg/dL (0.55-1.02); SODIUM 134 mmol/L (136-145)
[2017-09-09 19:48] LABS: GLUCOSE,RANDOM 378 mg/dL (74-106)
--- NOTE | 2017-09-09 20:08 | PN ---
Teaching Attending Note Name of Resident: Vicente Cardoza ATTENDING PHYSICIAN STATEMENT I saw and evaluated the patient. I reviewed the resident's note and discussed the case with the resident. I agree with the resident's findings and plan as documented. SUBJECTIVE: 52 Y/o F presented c/o LOC twice at home with head trauma. Patient also c/o cough and chest pain on deep breathing. PAtient also concerned for high and fluctuating blood sugars. PAtient on examination c/o generalized malaise and ache. OBJECTIVE: GEN: Morbidly obese, Alert and oreinted times 3 HEENT: NC, PERRLA, EOMI, Oral mucosa moist CVS: RRR, S1,S2 Lungs: CTA, no Wheezing or rhonchi Abd: Soft, Obese, BS+ Ext: nl ROM, No edema Neuro: sensation and CN2-12 intact CBCD WBC 8.8 K/mm3 (4.0-10.0) 09/09/17 11:13 RBC 4.83 M/mm3 (3.60-5.2) 09/09/17 11:13 Hgb 12.0 GM/dL (10.7-15.3) D 09/09/17 11:13 Hct 36.4 % (32.4-45.2) 09/09/17 11:13 MCV 75.3 fl (80-96) L 09/09/17 11:13 MCHC 33.1 g/dl (32.0-36.0) 09/09/17 11:13 RDW 15.1 % (11.6-15.6) 09/09/17 11:13 Plt Count 211 K/MM3 (134-434) 09/09/17 11:13 MPV 9.0 fl (7.5-11.1) 09/09/17 11:13 CMP Sodium 134 mmol/L (136-145) L 09/09/17 18:04 Potassium 4.0 mmol/L (3.5-5.1) 09/09/17 18:04 Chloride 103 mmol/L (98-107) 09/09/17 18:04 Carbon Dioxide 23 mmol/L (21-32) 09/09/17 18:04 Anion Gap 8 (8-16) 09/09/17 18:04 BUN 15 mg/dL (7-18) 09/09/17 18:04 Creatinine 1.1 mg/dL (0.55-1.02) H 09/09/17 18:04 Creat Clearance w eGFR 52.58 (>60) 09/09/17 11:50 Random Glucose 378 mg/dL (74-106) H* 09/09/17 18:04 Calcium 7.5 mg/dL (8.5-10.1) L 09/09/17 18:04 Total Bilirubin 0.3 mg/dL (0.2-1.0) D 09/09/17 11:50 AST 10 U/L (15-37) L 09/09/17 11:50 ALT 20 U/L (12-78) 09/09/17 11:50 Alkaline Phosphatase 83 U/L (45-117) 09/09/17 11:50 Total Protein 7.7 g/dl (6.4-8.2) 09/09/17 11:50 Albumin 3.5 g/dl (3.4-5.0) 09/09/17 11:50 CARDIAC ENZYMES Creatine Kinase 48 IU/L (26-192) 09/09/17 18:56 Troponin I < 0.02 ng/ml (0.00-0.05) 09/09/17 18:56 ASSESSMENT AND PLAN: Chest pain ,R/o PE. URI vs Flu will treat empirically with Tamiflu. Contact isolation ( Respiratory) VQ scan Lovenox 1mg/kg daily Oxygen 2L via NC Nebs and continue home meds Syncope-and ALEJANDRO secondary to dehydration- IVF and fall risk precautions Uncontrolled DM2 Insulin 50U SQ RISS ACHS DVT prophylaxis not given has patient on Lovenox
--- NOTE | 2017-09-09 20:15 | HP ---
CHIEF COMPLAINT: dizziness, weakness, SOB PCP: Aretha HISTORY OF PRESENT ILLNESS: The patient admits yesterday she felt weak, losing consciousness 2 times at home. her aide admits she did hit her head but refused to go to the hospital. She also admits to chills without fever, dry cough, chest discomfort and SOB. She states this morning she woke up and her sugar was almost 400, which is very unusual for her. She denies SANTOS, changes in vision/hearing, runny nose, earache , sore throat, n/v/d, abd pain, back pain, hematuria, dysuria. She took Motrin around 4am for her symptoms with little relief, and has been using her Ventolin inhaler for SOB without relief. 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 1 ppd/49year Alcohol:denies Drugs: denies Family History: Allergies Iodinated Contrast- Oral and IV Dye [Iodinated Contrast Media - IV Dye] Allergy (Intermediate, Verified 09/09/17 10:51) Itching tramadol Adverse Reaction (Verified 09/09/17 10:51) HOME MEDICATIONS: Home Medications Medication Instructions Recorded Fluoxetine HCl [Prozac -] 40 mg PO DAILY 09/15/14 Gabapentin [Neurontin -] 600 mg PO BID 09/15/14 [place]-3 Fatty Acids [[place]-3] 1,000 mg PO BID 09/15/14 Albuterol Sulfate Inhaler - 1 - 2 inh PO QID 03/15/16 [Ventolin HFA Inhaler -] Gabapentin 900 mg PO HS 03/15/17 Insulin Glargine,Hum.rec.anlog 50 units SQ AM 03/15/17 [Lantus Solostar PEN -] Liraglutide [Victoza -] 1.8 mg SQ DAILY@1200 03/15/17 clonazePAM [Klonopin -] 0.5 mg PO BID PRN 05/12/17 Meclizine HCl [Antivert -] 12.5 mg PO Q6H PRN #20 tablet 06/27/17 Aspirin 81 mg PO DAILY 08/15/17 Ergocalciferol (Vitamin D2) 50,000 units PO WEEKLY 08/15/17 [Vitamin D2] Levothyroxine [Synthroid -] 50 mcg PO DAILY 08/15/17 Topiramate [Topamax] 150 mg PO BID 30 Days #60 tablet 08/15/17 Hydrocodone/Acetaminophen 1 each PO BID PRN #60 tablet MDD 2 08/21/17 [Hydrocodone-Acetamin 10-325 mg] Atorvastatin Ca [Lipitor] 20 mg PO HS 09/09/17 Insulin (LOG) Aspart [NovoLOG -] 0 units SQ TID 09/09/17 Tiotropium [place] [Spiriva] 1 inh PO DAILY 09/09/17 REVIEW OF SYSTEMS CONSTITUTIONAL: Absent: fever, chills, diaphoresis, generalized weakness, malaise, loss of appetite, weight change HEENT: Absent: rhinorrhea, nasal congestion, throat pain, throat swelling, difficulty swallowing, mouth swelling, ear pain, eye pain, visual changes CARDIOVASCULAR: Absent: chest pain, syncope, palpitations, irregular heart rate, lightheadedness , peripheral edema RESPIRATORY: Absent: cough, shortness of breath, dyspnea with exertion, orthopnea, wheezing, stridor, hemoptysis GASTROINTESTINAL: Absent: abdominal pain, abdominal distension, nausea, vomiting, diarrhea, constipation, melena, hematochezia GENITOURINARY: Absent: dysuria, frequency, urgency, hesitancy, hematuria, flank pain, genital pain MUSCULOSKELETAL: Absent: myalgia, arthralgia, joint swelling, right hip pain, neck pain SKIN: Absent: rash, itching, pallor HEMATOLOGIC/IMMUNOLOGIC: Absent: easy bleeding, easy bruising, lymphadenopathy, frequent infections ENDOCRINE: Absent: unexplained weight gain, unexplained weight loss, heat intolerance, cold intolerance NEUROLOGIC: Absent: headache, focal weakness or paresthesias, dizziness, unsteady gait, seizure, mental status changes, bladder or bowel incontinence PSYCHIATRIC: Absent: anxiety, depression, suicidal or homicidal ideation, hallucinations. PHYSICAL EXAMINATION Vital Signs - 24 hr 09/09/17 09/09/17 09/09/17 10:49 12:11 16:00 Temperature 97.8 F Pulse Rate 112 H Pulse Rate [ 110 H Apical] Respiratory 20 18 Rate Blood Pressure 108/82 Blood Pressure 130/75 [Right Arm] O2 Sat by Pulse 98 96 98 Oximetry (%) 09/09/17 18:15 Temperature 98 F Pulse Rate Pulse Rate [ 110 H Apical] Respiratory 18 Rate Blood Pressure Blood Pressure 103/68 [Right Arm] O2 Sat by Pulse 98 Oximetry (%) GENERAL: Awake, alert, and fully oriented, in no acute distress. HEAD: Normal with no signs of trauma. EYES: Pupils equal, round and reactive to light, extraocular movements intact, sclera anicteric, conjunctiva clear. EARS, NOSE, THROAT: Ears normal, nares patent, oropharynx clear without exudates. dry mucous membranes. NECK: Normal range of motion, supple without lymphadenopathy, LUNGS: Breath sounds equal, clear to auscultation bilaterally. No wheezes, and no crackles. No accessory muscle use. HEART: Regular tachycardic , normal S1 and S2 without murmur, rub or gallop. ABDOMEN: Obese , Soft, nontender, not distended, normoactive bowel sounds, no guarding, no rebound, MUSCULOSKELETAL: Normal range of motion at all joints. No bony deformities or tenderness. No CVA tenderness. UPPER EXTREMITIES: 2+ pulses, warm, well-perfused. No cyanosis. No clubbing. No peripheral edema. LOWER EXTREMITIES: 2+ pulses, warm, well-perfused. No calf tenderness. No peripheral edema. NEUROLOGICAL: Cranial nerves II-XII intact. Normal speech. PSYCHIATRIC: Cooperative. Good eye contact. seems anxious SKIN: Warm, dry, Laboratory Results - last 24 hr 09/09/17 09/09/17 09/09/17 11:13 11:50 11:50 WBC 8.8 RBC 4.83 Hgb 12.0 D Hct 36.4 MCV 75.3 L MCH 24.9 L MCHC 33.1 RDW 15.1 Plt Count 211 MPV 9.0 Neutrophils % 64.7 Lymphocytes % 23.4 Monocytes % 7.5 Eosinophils % 3.9 Basophils % 0.5 PT with INR INR D-Dimer Sodium 135 L Potassium 4.1 Chloride 100 Carbon Dioxide 26 Anion Gap 9 BUN 16 Creatinine 1.1 H Creat Clearance w eGFR 52.58 Random Glucose 376 H* Calcium 9.0 Total Bilirubin 0.3 D AST 10 L ALT 20 Alkaline Phosphatase 83 Creatine Kinase 50 Troponin I < 0.02 B-Natriuretic Peptide Total Protein 7.7 Albumin 3.5 Urine Color Straw Urine Appearance Clear Urine pH 6.0 D Ur Specific [place] 1.011 Urine Protein Negative Urine Glucose (UA) 3+ H Urine Ketones Negative Urine Blood Negative Urine Nitrite Negative Urine Bilirubin Negative Urine Urobilinogen Negative Ur Leukocyte Esterase Negative Acetone, Qual Negative L 09/09/17 09/09/17 09/09/17 15:40 18:04 18:56 WBC RBC Hgb Hct MCV MCH MCHC RDW Plt Count MPV Neutrophils % Lymphocytes % Monocytes % Eosinophils % Basophils % PT with INR INR D-Dimer 443 Sodium 134 L Potassium 4.0 Chloride 103 Carbon Dioxide 23 Anion Gap 8 BUN 15 Creatinine 1.1 H Creat Clearance w eGFR Random Glucose 378 H* Calcium 7.5 L Total Bilirubin AST ALT Alkaline Phosphatase Creatine Kinase Troponin I B-Natriuretic Peptide 24.05 Total Protein Albumin Urine Color Urine Appearance Urine pH Ur Specific [place] Urine Protein Urine Glucose (UA) Urine Ketones Urine Blood Urine Nitrite Urine Bilirubin Urine Urobilinogen Ur Leukocyte Esterase Acetone, Qual 09/09/17 09/09/17 18:56 18:56 WBC RBC Hgb Hct MCV MCH MCHC RDW Plt Count MPV Neutrophils % Lymphocytes % Monocytes % Eosinophils % Basophils % PT with INR 10.60 INR 0.94 D-Dimer Sodium Potassium Chloride Carbon Dioxide Anion Gap BUN Creatinine Creat Clearance w eGFR Random Glucose Calcium Total Bilirubin AST ALT Alkaline Phosphatase Creatine Kinase 48 Troponin I < 0.02 B-Natriuretic Peptide Total Protein Albumin Urine Color Urine Appearance Urine pH Ur Specific [place] Urine Protein Urine Glucose (UA) Urine Ketones Urine Blood Urine Nitrite Urine Bilirubin Urine Urobilinogen Ur Leukocyte Esterase Acetone, Qual CBC, BMP 09/09/17 11:13 09/09/17 18:04 CXR : No acute pathology HAd CT scan pending reading V/Q scan pending reading ASSESSMENT/PLAN: 52 year old female with PMH of HTN, HLD,Hypothyroidism and syncope presented to ED with one day H/O chest pain pressure like non radiating admitted to R/O PE and ACS ,and due to uncontrolled Blood sugar. # Med sternal chest pain R/O PE , likely plueritic chest pain due to viral bronchitis vs common cold unlikely ACS * Pain local 5/10 non radiating increased with inspiration associated with dry cough, chills * CXR negative for acute process * Influenza A,B rapid * isolation precaution droplet * EKG with No S, ST wave changes * CTA pending reading * Consult cardiology in ED * O2 as needed to keep o2 sat > 90 * duo-neb * spiriva * start Tamiflue 75 mg po BID #loc 2/2 Syncopy likely 2/2 dehydration due to polyuria and diarrhea * passed out twice yesterday,and 2 days , felt room spinning , unwitnessed * denies hitting her head , reports headache 01/07 * IV fluids * orthostatics * EKG did not show any ST,T wave changes * fall precautions # ALEJANDRO likely pre renal due to volume depletion , diarrhea * BUN/CR 15/1.1 * IV fluids * Urine lytes * Monitor BUN/Cr * # DM, uncontrolled * Hyperglycemic on admission with glu 378 without DKA * Hold oral agents victoza * ISS * continue levemir 50 Q AM * given 20 units levemir this evening one time order only # HTN , controlled * Resume home meds : # HLD * continue lipitor 20 mg po daily # hypothyroidism , * continue Synthroid 50 mcg daily # H/O sleep apnea with no PIPAP At home F/U as out pt #FEN * F: NS 2L boluses in ED , maintenance NS @ 100 cc/hr * E: monitor and replinised as needed * N: diabetic low sodium diet # Proph * DVT: moderate risk , SCS both legs , Hep 5000 SQ Q8hr * GI: No need for now # Dispo * Admit to observation Visit type - Emergency Visit Emergency Visit: Yes ED Registration Date: 09/09/17 Care time: The patient presented to the Emergency Department on the above date and was hospitalized for further evaluation of their emergent condition. - New Patient This patient is new to me today: Yes Date on this admission: 09/10/17 - Critical Care Critical Care patient: No
[2017-09-09] MEDS ORDERED: TIOTROPIUM BROMIDE 18 MCG/INH (DEVICE W/ 5 CAPSULES) IH SCH (22:00)
[2017-09-09] MEDS ORDERED: MECLIZINE HCL 12.5 MG TABLET PO PRN (22:01)
[2017-09-09] MEDS ORDERED: INSULIN DETEMIR 100 UNITS/ML MDV SQ ONE ×2 (22:01→22:47)
[2017-09-09] MEDS ORDERED: ERGOCALCIFEROL (VITAMIN D2) 50,000 UNIT CAPSULE (FP) PO SCH (22:15)
[2017-09-09 22:18] LABS: ARTERIAL BLD GAS O2 SATURATION 97.7 % (90-98.9); ARTERIAL BLOOD GAS BASE EXCESS -2.8 meq/l (-2-2); ARTERIAL BLOOD GAS PCO2 35.4 mmHg (35-45); ARTERIAL BLOOD GAS PO2 96.5 mmHg (80-100); ARTERIAL BLOOD GAS pH 7.39 (7.35-7.45)
[2017-09-09 22:19] LABS: ALLENS TEST POSITIVE
[2017-09-09] MEDS ORDERED: ACETAMINOPHEN 325 MG TABLET (FP) PO PRN (22:19)
[2017-09-09] MEDS ORDERED: HEPARIN NA (PORCINE) 5,000 UNITS/ML 1ML VIAL ONE (22:46)
[2017-09-09] MEDS ORDERED: OSELTAMIVIR PHOSPHATE 75 MG CAPSULE ONE (22:46)
[2017-09-09] MEDS: OSELTAMIVIR PHOSPHATE 75 MG CAPSULE PO SCH (22:50)
[2017-09-09] MEDS: SODIUM CHLORIDE 1,000 ML IV SCH (22:50)
[2017-09-09] MEDS ORDERED: INSULIN (NOVOLOG) ASPART 100 UNITS/ML 10ML VIAL ONE (23:06)
[2017-09-09] MEDS: INSULIN SLIDING SCALE (NOVOLOG) 1 VIAL SQ SCH (23:09)
[2017-09-09] MEDS: HEPARIN NA (PORCINE) 5,000 UNITS/ML 1ML VIAL SQ SCH (23:10)
[2017-09-10] MEDS ORDERED: ACETAMINOPHEN 325 MG TABLET (FP) ONE (00:33)
[2017-09-10] MEDS ORDERED: HEMOQUE TEST 1 EACH EACH ONE (01:19)
[2017-09-10] MEDS ORDERED: clonazePAM 0.5 MG TABLET ONE (02:41)
[2017-09-10] MEDS: clonazePAM 0.5 MG TABLET PO PRN (02:45)
[2017-09-10] MEDS: HEPARIN NA (PORCINE) 5,000 UNITS/ML 1ML VIAL SQ SCH ×3 (06:55→22:01)
[2017-09-10 06:59] LABS: BASO % 0.5 % (0-2.0); EOS % 6.2 % (0-4.5); HEMATOCRIT 33.4 % (32.4-45.2); HEMOGLOBIN 10.7 GM/dL (10.7-15.3); LYMPH % 37.2 % (8-40); MCH 24.4 pg (25.7-33.7); MEAN PLT VOLUME 9.2 fl (7.5-11.1); MONO % 8.8 % (3.8-10.2); NEUT % 47.3 % (42.8-82.8); PLATELET COUNT 178 K/MM3 (134-434); RDW 15.1 % (11.6-15.6)
[2017-09-10] MEDS ORDERED: PATIENT'S OWN MEDICATION (NON-FORMULARY) (Insulin Glargine,Hum.Rec.Anlog 50 UNITS) SQ SCH (07:00)
[2017-09-10 07:28] LABS: ALBUMIN 3.2 g/dl (3.4-5.0); ANION GAP 5 (8-16); BLOOD UREA NITROGEN 11 mg/dL (7-18); CALCIUM 7.7 mg/dL (8.5-10.1); CHLORIDE 105 mmol/L (98-107); CO2 25 mmol/L (21-32); MAGNESIUM 1.5 mg/dL (1.8-2.4); POTASSIUM 4.2 mmol/L (3.5-5.1); SODIUM 135 mmol/L (136-145)
[2017-09-10 07:33] LABS: ALK PHOS 72 U/L (45-117); BILIRUBIN,TOTAL 0.3 mg/dL (0.2-1.0); CREATININE 0.9 mg/dL (0.55-1.02); SGOT/AST 9 U/L (15-37); SGPT/ALT 19 U/L (12-78); TOT PROT 6.8 g/dl (6.4-8.2)
[2017-09-10 07:37] LABS: GLUCOSE,RANDOM 343 mg/dL (74-106)
[2017-09-10] MEDS: INSULIN SLIDING SCALE (NOVOLOG) 1 VIAL SQ SCH ×4 (08:46→22:16)
[2017-09-10] MEDS: INSULIN DETEMIR 100 UNITS/ML MDV SQ SCH (08:48)
[2017-09-10] MEDS: LEVOTHYROXINE NA 50 MCG TABLET (FP) PO SCH (08:48)
[2017-09-10] MEDS: FLUoxetine HCL 20 MG CAPSULE (FP) PO SCH (09:29)
[2017-09-10] MEDS: OMEGA-3 ACID ETHYL ESTERS (FATTY-ACIDS) 1 GM CAPSULE (FP) PO SCH ×3 (09:29→22:09)
[2017-09-10] MEDS: GABAPENTIN 300 MG CAPSULE (FP) PO SCH ×3 (09:29→22:02)
[2017-09-10] MEDS: OSELTAMIVIR PHOSPHATE 75 MG CAPSULE PO SCH ×2 (09:29→22:01)
[2017-09-10] MEDS: ASPIRIN 81 MG CHEWABLE TABLETS PO SCH (09:29)
[2017-09-10] MEDS: TOPIRAMATE 100 MG TABLET PO SCH ×2 (09:30→22:10)
[2017-09-10] MEDS ORDERED: ALBUTEROL SO4 18 GM HFA INHALER IH SCH (10:00)
[2017-09-10] MEDS: TIOTROPIUM BROMIDE 18 MCG/INH (DEVICE W/ 5 CAPSULES) IH SCH (10:04)
[2017-09-10] MEDS ORDERED: MAGNESIUM 2GM/50ML STERILE WATER IVPB IVPB ONE (10:10)
--- NOTE | 2017-09-10 10:31 | PN ---
Progress Note (short form) - Note Progress Note: Subjective: no fever or chills, has no cp but when she takes deep breath she has heaviness in retrosternal area. SOB x few says ,feels sick and malaise . felt dizzy before last fall , unknown duration of her LOC , aid had hard time waking her up. the one episode before that, family member witnessed her shaking in sitting position . hematuria this am Objective: Vital Signs: Last Vital Signs Temp Pulse Resp BP Pulse Ox 98.5 F 85 18 121/75 98 09/10/17 10:04 09/10/17 10:04 09/10/17 10:04 09/10/17 10:04 09/09/17 18:15 Laboratory Results - last 24 hr 09/09/17 09/09/17 09/09/17 11:13 11:50 11:50 WBC 8.8 RBC 4.83 Hgb 12.0 D Hct 36.4 MCV 75.3 L MCH 24.9 L MCHC 33.1 RDW 15.1 Plt Count 211 MPV 9.0 Neutrophils % 64.7 Lymphocytes % 23.4 Monocytes % 7.5 Eosinophils % 3.9 Basophils % 0.5 PT with INR INR D-Dimer Anticoagulation Therapy Puncture Site ABG pH ABG pCO2 at Pt Temp ABG pO2 at Pt Temp ABG HCO3 ABG O2 Sat (Measured) ABG O2 Content ABG Base Excess Dharmesh Test O2 Delivery Device Oxygen Flow Rate Vent Mode Vent Rate Mechanical Rate Pressure Support Vent Sodium 135 L Potassium 4.1 Chloride 100 Carbon Dioxide 26 Anion Gap 9 BUN 16 Creatinine 1.1 H Creat Clearance w eGFR 52.58 POC Glucometer Random Glucose 376 H* Calcium 9.0 Magnesium Total Bilirubin 0.3 D AST 10 L ALT 20 Alkaline Phosphatase 83 Creatine Kinase 50 Troponin I < 0.02 B-Natriuretic Peptide Total Protein 7.7 Albumin 3.5 Urine Color Straw Urine Appearance Clear Urine pH 6.0 D Ur Specific [place] 1.011 Urine Protein Negative Urine Glucose (UA) 3+ H Urine Ketones Negative Urine Blood Negative Urine Nitrite Negative Urine Bilirubin Negative Urine Urobilinogen Negative Ur Leukocyte Esterase Negative Acetone, Qual Negative L Blood Type Antibody Screen 09/09/17 09/09/17 09/09/17 14:15 15:40 18:04 WBC RBC Hgb Hct MCV MCH MCHC RDW Plt Count MPV Neutrophils % Lymphocytes % Monocytes % Eosinophils % Basophils % PT with INR INR D-Dimer 443 Anticoagulation Therapy Puncture Site ABG pH ABG pCO2 at Pt Temp ABG pO2 at Pt Temp ABG HCO3 ABG O2 Sat (Measured) ABG O2 Content ABG Base Excess Dharmesh Test O2 Delivery Device Oxygen Flow Rate Vent Mode Vent Rate Mechanical Rate Pressure Support Vent Sodium 134 L Potassium 4.0 Chloride 103 Carbon Dioxide 23 Anion Gap 8 BUN 15 Creatinine 1.1 H Creat Clearance w eGFR POC Glucometer 210.72672 Random Glucose 378 H* Calcium 7.5 L Magnesium Total Bilirubin AST ALT Alkaline Phosphatase Creatine Kinase Troponin I B-Natriuretic Peptide Total Protein Albumin Urine Color Urine Appearance Urine pH Ur Specific [place] Urine Protein Urine Glucose (UA) Urine Ketones Urine Blood Urine Nitrite Urine Bilirubin Urine Urobilinogen Ur Leukocyte Esterase Acetone, Qual Blood Type Antibody Screen 09/09/17 09/09/17 09/09/17 18:56 18:56 18:56 WBC RBC Hgb Hct MCV MCH MCHC RDW Plt Count MPV Neutrophils % Lymphocytes % Monocytes % Eosinophils % Basophils % PT with INR 10.60 INR 0.94 D-Dimer Anticoagulation Therapy Puncture Site ABG pH ABG pCO2 at Pt Temp ABG pO2 at Pt Temp ABG HCO3 ABG O2 Sat (Measured) ABG O2 Content ABG Base Excess Dharmesh Test O2 Delivery Device Oxygen Flow Rate Vent Mode Vent Rate Mechanical Rate Pressure Support Vent Sodium Potassium Chloride Carbon Dioxide Anion Gap BUN Creatinine Creat Clearance w eGFR POC Glucometer Random Glucose Calcium Magnesium Total Bilirubin AST ALT Alkaline Phosphatase Creatine Kinase 48 Troponin I < 0.02 B-Natriuretic Peptide 24.05 Total Protein Albumin Urine Color Urine Appearance Urine pH Ur Specific [place] Urine Protein Urine Glucose (UA) Urine Ketones Urine Blood Urine Nitrite Urine Bilirubin Urine Urobilinogen Ur Leukocyte Esterase Acetone, Qual Blood Type Antibody Screen 09/09/17 09/09/17 09/09/17 18:56 22:02 22:57 WBC RBC Hgb Hct MCV MCH MCHC RDW Plt Count MPV Neutrophils % Lymphocytes % Monocytes % Eosinophils % Basophils % PT with INR INR D-Dimer Anticoagulation Therapy No Result Required. Puncture Site Right radial ABG pH 7.39 ABG pCO2 at Pt Temp 35.4 ABG pO2 at Pt Temp 96.5 ABG HCO3 21.1 L ABG O2 Sat (Measured) 97.7 ABG O2 Content 11.0 L ABG Base Excess -2.8 L Dharmesh Test Positive O2 Delivery Device Room air Oxygen Flow Rate 21 Vent Mode No Result Required. Vent Rate No Result Required. Mechanical Rate No Result Required. Pressure Support Vent No Result Required. Sodium Potassium Chloride Carbon Dioxide Anion Gap BUN Creatinine Creat Clearance w eGFR POC Glucometer > 400 Random Glucose Calcium Magnesium Total Bilirubin AST ALT Alkaline Phosphatase Creatine Kinase Troponin I B-Natriuretic Peptide Total Protein Albumin Urine Color Urine Appearance Urine pH Ur Specific [place] Urine Protein Urine Glucose (UA) Urine Ketones Urine Blood Urine Nitrite Urine Bilirubin Urine Urobilinogen Ur Leukocyte Esterase Acetone, Qual Blood Type O POSITIVE Antibody Screen Negative 09/10/17 09/10/17 09/10/17 01:27 06:37 06:37 WBC 6.0 D RBC 4.40 Hgb 10.7 D Hct 33.4 MCV 76.0 L MCH 24.4 L MCHC 32.0 RDW 15.1 Plt Count 178 MPV 9.2 Neutrophils % 47.3 D Lymphocytes % 37.2 D Monocytes % 8.8 Eosinophils % 6.2 H Basophils % 0.5 PT with INR INR D-Dimer Anticoagulation Therapy Puncture Site ABG pH ABG pCO2 at Pt Temp ABG pO2 at Pt Temp ABG HCO3 ABG O2 Sat (Measured) ABG O2 Content ABG Base Excess Dharmesh Test O2 Delivery Device Oxygen Flow Rate Vent Mode Vent Rate Mechanical Rate Pressure Support Vent Sodium 135 L Potassium 4.2 Chloride 105 Carbon Dioxide 25 Anion Gap 5 L BUN 11 Creatinine 0.9 Creat Clearance w eGFR > 60 POC Glucometer > 400 Random Glucose 343 H* Calcium 7.7 L Magnesium 1.5 L Total Bilirubin 0.3 AST 9 L ALT 19 Alkaline Phosphatase 72 Creatine Kinase Troponin I B-Natriuretic Peptide Total Protein 6.8 Albumin 3.2 L Urine Color Urine Appearance Urine pH Ur Specific [place] Urine Protein Urine Glucose (UA) Urine Ketones Urine Blood Urine Nitrite Urine Bilirubin Urine Urobilinogen Ur Leukocyte Esterase Acetone, Qual Blood Type Antibody Screen 09/10/17 08:43 WBC RBC Hgb Hct MCV MCH MCHC RDW Plt Count MPV Neutrophils % Lymphocytes % Monocytes % Eosinophils % Basophils % PT with INR INR D-Dimer Anticoagulation Therapy Puncture Site ABG pH ABG pCO2 at Pt Temp ABG pO2 at Pt Temp ABG HCO3 ABG O2 Sat (Measured) ABG O2 Content ABG Base Excess Dharmesh Test O2 Delivery Device Oxygen Flow Rate Vent Mode Vent Rate Mechanical Rate Pressure Support Vent Sodium Potassium Chloride Carbon Dioxide Anion Gap BUN Creatinine Creat Clearance w eGFR POC Glucometer 134.74202 Random Glucose Calcium Magnesium Total Bilirubin AST ALT Alkaline Phosphatase Creatine Kinase Troponin I B-Natriuretic Peptide Total Protein Albumin Urine Color Urine Appearance Urine pH Ur Specific [place] Urine Protein Urine Glucose (UA) Urine Ketones Urine Blood Urine Nitrite Urine Bilirubin Urine Urobilinogen Ur Leukocyte Esterase Acetone, Qual Blood Type Antibody Screen Physical Exam: NAD , pleasant obese female CV: RRR, no MRG , no JVD Lungs: CTAB ext: no edema Neuro: no facial droop, EOMI, tongue and uvula at mid line, nl facial sensation ASSESSMENT AND PLAN: 52 y/o lady with h/o recurrent syncopes, possible recurrent seizures, CVA , HTN , Bipolar , IDDM, , hypothyroidism and other medical problems who presented with syncope x 2 and SOB with malaise 1- SOB : Possible flu : sx of SOB , malaise , body aches . no flu swab available - cont tamiflu empirically - no infiltrate or evidence of PNA - D dimer nl, and VQ scan prelim with no P-V mismatch . ne need for AC. PE r/o - add Albutero Nebs - cont inhalers 2- syncope : recurrent h/o that. w/u in past. sees Dr. Wagner and a 3 day EEG was planned. last EEG here 08/17 was neg . - now her sx might be related to volume depletion vs actual seizures ( one happened while sitting with shaking ) . CVA is not suspected - cont topiramate ( does increased last admission ) - No need to repeat EEG - consult Dr. Wagner 3- DM : uncontrolled sugar. now better - cont levemir 50 am -SSI 4- h/o CVA : cont ASA - cont lipitor started last admission 5- hematuria this am , 2/2 lovenox last night . hold and monitor 6- cont Heparin SQ . Visit type - Emergency Visit Emergency Visit: Yes ED Registration Date: 09/09/17 Care time: The patient presented to the Emergency Department on the above date and was hospitalized for further evaluation of their emergent condition. - New Patient This patient is new to me today: Yes Date on this admission: 09/10/17 - Critical Care Critical Care patient: No
[2017-09-10] MEDS ORDERED: ALBUTEROL SO4 18 GM HFA INHALER IH PRN (10:32)
[2017-09-10] MEDS ORDERED: MAGNESIUM SULF 50% (8.12 MEQ/2 ML-1 GM VIAL) ONE (10:54)
[2017-09-10] MEDS: ALBUTEROL SO4 0.5 % INH SOLN 2.5 MG/0.5 ML VIAL.NEB. NEB SCH ×2 (11:01→16:59)
--- NOTE | 2017-09-10 12:30 | CON.CARD ---
Consult Consult Specialty:: Cardiology Referred by:: Hospitalist Medicine Reason for Consultation:: Dyspnea, light-headedness - History of Present Illness Chief Complaint: Dyspnea, light-headedness History of Present Illness: Patient is a 51 year old female with underlying history of hypertension , hypercholesterolemia, diabetes mellitus insulin requiring, CVA, cirrhosis, anxiety, neurocardiogenic syncope, morbid obesity and obstructive sleep apnea who presents with 2 episodes of syncope, chills without fever, dry cough, pleuritic chest discomfort and SOB, V/Q scan ruled out PE. 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: CVA, Seizure, TIA Cardio/Vascular: Yes: CAD, HTN, Hyperlipdemia Pulmonary: Yes: Sleep Apnea ...LMP: 08/15/17 Infectious Disease: Yes: Other (Hep C) Psych: Yes: Anxiety, Bipolar Endocrine: Yes: Diabetes Mellitus - Past Surgical History Past Surgical History: Yes: - Alcohol/Substance Use Hx Alcohol Use: No - Smoking History Smoking history: Former smoker Have you smoked in the past 12 months: No If you are a former smoker, when did you quit?: 3 years ago - Social History Usual Living Arrangement: Alone ADL: Independent History of Recent Travel: No Home Medications - Allergies Allergies/Adverse Reactions: Allergies Allergy/AdvReac Type Severity Reaction Status Date / Time Iodinated Contrast- Oral and Allergy Intermediate Itching Verified 09/09/17 10: 51 IV Dye [Iodinated Contrast Media - IV Dye] tramadol AdvReac Verified 09/09/17 10:51 - Home Medications Home Medications: Ambulatory Orders Fluoxetine HCl [Prozac -] 40 mg PO DAILY 09/15/14 Gabapentin [Neurontin -] 600 mg PO BID 09/15/14 [place]-3 Fatty Acids [[place]-3] 1,000 mg PO BID 09/15/14 Albuterol Sulfate Inhaler - [Ventolin HFA Inhaler -] 1 - 2 inh PO QID 03/15/16 Gabapentin 900 mg PO HS 03/15/17 Insulin Glargine,Hum.rec.anlog [Lantus Solostar PEN -] 50 units SQ AM 03/15/17 Liraglutide [Victoza -] 1.8 mg SQ DAILY@1200 03/15/17 clonazePAM [Klonopin -] 0.5 mg PO BID PRN 05/12/17 Meclizine HCl [Antivert -] 12.5 mg PO Q6H PRN #20 tablet 06/27/17 Aspirin 81 mg PO DAILY 08/15/17 Ergocalciferol (Vitamin D2) [Vitamin D2] 50,000 units PO WEEKLY 08/15/17 Levothyroxine [Synthroid -] 50 mcg PO DAILY 08/15/17 Topiramate [Topamax] 150 mg PO BID 30 Days #60 tablet 08/15/17 Hydrocodone/Acetaminophen [Hydrocodone-Acetamin 10-325 mg] 1 each PO BID PRN # 60 tablet MDD 2 08/21/17 Atorvastatin Ca [Lipitor] 20 mg PO HS 09/09/17 Insulin (LOG) Aspart [NovoLOG -] 0 units SQ TID 09/09/17 Tiotropium [place] [Spiriva] 1 inh PO DAILY 09/09/17 Atorvastatin Ca [Lipitor] 20 mg PO HS 09/10/17 Family Disease History - Family Disease History Family Disease History: Diabetes: Mother (,), Brother (one living - etoh ), Sister (two living - ), Heart Disease: Father (living, no contact,etoh), Sister, Respiratory: Father, Other: Father, Mother, Brother, Sister, Daughter ( one with etoh) Review of Systems - Review of Systems Respiratory: reports: Cough, SOB Vital Signs: Vital Signs Temperature 98.5 F 09/10/17 10:04 Pulse Rate 85 09/10/17 10:04 Respiratory Rate 18 09/10/17 10:04 Blood Pressure 121/75 09/10/17 10:04 O2 Sat by Pulse Oximetry (%) 98 09/09/17 18:15 Constitutional: Yes: No Distress, Calm Neck: Yes: Supple Respiratory: Yes: Regular, Diminished Gastrointestinal: Yes: Normal Bowel Sounds, Soft, Abdomen, Obese Cardiovascular: Yes: Regular Rate and Rhythm JVD: No Carotid Bruit: No Heart Sounds: Yes: S1, S2 Edema: No - Other Data Labs, Other Data: CBC, BMP 09/10/17 06:37 09/10/17 06:37 INR, PTT INR 0.94 (0.82-1.09) 09/09/17 18:56 Troponin, BNP 09/09/17 09/09/17 18:56 18:56 Troponin I < 0.02 B-Natriuretic Peptide 24.05 Troponin, BNP 09/09/17 09/09/17 18:56 18:56 Troponin I < 0.02 B-Natriuretic Peptide 24.05 ST @ 112 min criteria for LVH Imaging - Results Chest X-ray: Report Reviewed (NAD) Problem List - Problems (1) Dizziness Code(s): R42 - DIZZINESS AND GIDDINESS (2) Shortness of breath Code(s): R06.02 - SHORTNESS OF BREATH (3) Weakness Code(s): R53.1 - WEAKNESS (4) Anxiety Code(s): F41.9 - ANXIETY DISORDER, UNSPECIFIED (5) DVT prophylaxis Code(s): DNK1674 - (6) Diabetes mellitus, insulin dependent (IDDM), uncontrolled Code(s): E10.65 - TYPE 1 DIABETES MELLITUS WITH HYPERGLYCEMIA (7) MARILU (obstructive sleep apnea) Code(s): G47.33 - OBSTRUCTIVE SLEEP APNEA (ADULT) (PEDIATRIC) (8) Syncope Code(s): R55 - SYNCOPE AND COLLAPSE Qualifiers: Syncope type: unspecified Qualified Code(s): R55 - Syncope and collapse Assessment/Plan 06/23/2017 EchoL Normal LV size and fxn, mild MR, TR 1. SOB , malaise , body aches - possible flu . no flu swab available 2. Recurrent syncope, post-tussive/situational vs seizure disorder 2. Hypertension 3. Hypercholesterolemia 4. Diabetes mellitus - Insulin requiring 5. Morbid obesity with probable obstructive sleep apnea 6. Anxiety disorder (severe) 7. Hypothyroidism 8. Atypical chest pain - pleuritic ruled out for PE 9. Probable bronchial asthma PLAN: 1. Empiric Tamiflu course, BD, O2 as needed, DVT prophylaxis 2. Continue current medical therapy including Prinivil, Lipitor 20 qhs and ASA 81 qd 3. Anxiety management 4. Obstructive sleep apnea needs to be addressed and possible CPAP if clinically indicated - current evaluation and treatment as per pulmonary service 5. Consider Tilt table test at some point as outpatient 6. Thank you for consultative opportunity
--- NOTE | 2017-09-10 13:42 | CON.NEURO ---
Consult Consult Specialty:: NEUROLOGY Reason for Consultation:: seizure - History of Present Illness History of Present Illness: Patient is a 52 y/o W [place] F w h/o seizure on topamax 150 mg bid ;The patient admits yesterday she felt weak, losing consciousness 2 times at home. her aide admits she did hit her head but refused to go to the hospital. She also admits to chills without fever, dry cough, chest discomfort and SOB. She states this morning she woke up and her sugar was almost 400, which is very unusual for her. She is known to our office , following Dr Wagner; she is scheduled for a VEEG at our office; she states that in the past was on keppra which was not helpful. She states that has had post confusion in theses recent episodes, and is told that has had body shaking but does not recall the events. 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: CVA, Seizure, TIA Cardio/Vascular: Yes: CAD, HTN, Hyperlipdemia Pulmonary: Yes: Sleep Apnea ...LMP: 08/15/17 Infectious Disease: Yes: Other (Hep C) Psych: Yes: Anxiety, Bipolar Endocrine: Yes: Diabetes Mellitus - Past Surgical History Past Surgical History: Yes: - Alcohol/Substance Use Hx Alcohol Use: No - Smoking History Smoking history: Former smoker Have you smoked in the past 12 months: No If you are a former smoker, when did you quit?: 3 years ago - Social History Usual Living Arrangement: Alone ADL: Independent History of Recent Travel: No Home Medications - Allergies Allergies/Adverse Reactions: Allergies Allergy/AdvReac Type Severity Reaction Status Date / Time Iodinated Contrast- Oral and Allergy Intermediate Itching Verified 09/09/17 10: 51 IV Dye [Iodinated Contrast Media - IV Dye] tramadol AdvReac Verified 09/09/17 10:51 - Home Medications Home Medications: Ambulatory Orders Fluoxetine HCl [Prozac -] 40 mg PO DAILY 09/15/14 Gabapentin [Neurontin -] 600 mg PO BID 09/15/14 [place]-3 Fatty Acids [[place]-3] 1,000 mg PO BID 09/15/14 Albuterol Sulfate Inhaler - [Ventolin HFA Inhaler -] 1 - 2 inh PO QID 03/15/16 Gabapentin 900 mg PO HS 03/15/17 Insulin Glargine,Hum.rec.anlog [Lantus Solostar PEN -] 50 units SQ AM 03/15/17 Liraglutide [Victoza -] 1.8 mg SQ DAILY@1200 03/15/17 clonazePAM [Klonopin -] 0.5 mg PO BID PRN 05/12/17 Meclizine HCl [Antivert -] 12.5 mg PO Q6H PRN #20 tablet 06/27/17 Aspirin 81 mg PO DAILY 08/15/17 Ergocalciferol (Vitamin D2) [Vitamin D2] 50,000 units PO WEEKLY 08/15/17 Levothyroxine [Synthroid -] 50 mcg PO DAILY 08/15/17 Topiramate [Topamax] 150 mg PO BID 30 Days #60 tablet 08/15/17 Hydrocodone/Acetaminophen [Hydrocodone-Acetamin 10-325 mg] 1 each PO BID PRN # 60 tablet MDD 2 08/21/17 Atorvastatin Ca [Lipitor] 20 mg PO HS 09/09/17 Insulin (LOG) Aspart [NovoLOG -] 0 units SQ TID 09/09/17 Tiotropium [place] [Spiriva] 1 inh PO DAILY 09/09/17 Atorvastatin Ca [Lipitor] 20 mg PO HS 09/10/17 Family Disease History - Family Disease History Family Disease History: Diabetes: Mother (,), Brother (one living - etoh ), Sister (two living - ), Heart Disease: Father (living, no contact,etoh), Sister, Respiratory: Father, Other: Father, Mother, Brother, Sister, Daughter ( one with etoh) Review of Systems - Review of Systems Constitutional: reports: No Symptoms Eyes: reports: No Symptoms HENT: reports: No Symptoms Neck: reports: No Symptoms Respiratory: reports: No Symptoms Gastrointestinal: reports: No Symptoms Genitourinary: reports: No Symptoms Musculoskeletal: reports: No Symptoms Endocrine: reports: No Symptoms Hematology/Lymphatic: reports: No Symptoms Psychiatric: reports: No Symptoms Physical Exam-Neuro Vital Signs: Vital Signs Temperature 98.5 F 09/10/17 10:04 Pulse Rate 85 09/10/17 10:04 Respiratory Rate 18 09/10/17 10:04 Blood Pressure 121/75 09/10/17 10:04 O2 Sat by Pulse Oximetry (%) 96 09/10/17 12:44 Constitutional: Yes: Well Nourished Neck: Yes: Supple Cardiovascular: Yes: Regular Rate and Rhythm Respiratory: Yes: CTA Bilaterally Musculoskeletal: Yes: WNL Edema: No Labs: CBC, BMP 09/10/17 06:37 09/10/17 06:37 INR, PTT INR 0.94 (0.82-1.09) 09/09/17 18:56 - Neuro Exam Level Of Consciousness: Yes: Oriented to Person, Oriented to Place, Oriented to Time Eyes: Yes: PERRLA Speech: WNL Cranial Nerves II-XII Intact: Yes Gag: Present Response to light touch: Normal Motor Strength: 5/5: Right Leg, Left Leg, Right Arm, Left Arm Gait: Normal Imaging - Results Cat Scan: Report Reviewed, Image Reviewed (CTH , no acute events) Problem List - Problems (1) Seizure Code(s): R56.9 - UNSPECIFIED CONVULSIONS (2) Atypical syncope Code(s): R55 - SYNCOPE AND COLLAPSE (3) Stroke Code(s): I63.9 - CEREBRAL INFARCTION, UNSPECIFIED Assessment/Plan 52 y/o W F , w h/o seizure, sleep apnea, stroke , obesity p/w episodes of LOC and body shaking MLK breakthrough seizure vs doubt syncopy; she is a known case to our office following w Dr Wagner ; on topamax 150 mg bid ; is scheduled for VEEG as OP.She is back to her baseline ; CTH (-) Resume Topamax 150 mg bid seziure/ fall precautions EEG routine CARDILOGY W/U to exclude cardiac cause of syncopy Will consider adding vimpat Health maintenance per primary team. Carter Becerril MD [phone]
--- NOTE | 2017-09-10 16:51 | EKG ---
Test Reason : Blood Pressure : / mmHG Vent. Rate : 092 BPM Atrial Rate : 092 BPM P-R Int : 152 ms QRS Dur : 090 ms QT Int : 390 ms P-R-T Axes : 048 -33 031 degrees QTc Int : 482 ms NORMAL SINUS RHYTHM LEFT AXIS DEVIATION MINIMAL VOLTAGE CRITERIA FOR LVH, MAY BE NORMAL VARIANT PROLONGED QT ABNORMAL ECG WHEN COMPARED WITH ECG OF 09-SEP-2017 11:54, NO SIGNIFICANT CHANGE WAS FOUND Confirmed by ANA LUISA MCINTOSH MD ([id number]) on 09/10/2017 4:50:44 PM Referred By: Ely CESAR Confirmed By:ANA LUISA MCINTOSH MD
[2017-09-10] MEDS: ATORVASTATIN CA 20 MG TABLET (FP) PO SCH (22:02)
[2017-09-10] MEDS: SODIUM CHLORIDE 1,000 ML IV SCH (22:03)
[2017-09-10] MEDS ORDERED: INSULIN (NOVOLOG) ASPART 100 UNITS/ML 10ML VIAL ONE (22:41)
[2017-09-11] MEDS ORDERED: ALBUTEROL SO4 0.083% IH SOL 2.5 MG/3 ML VIAL.NEB. NEB ONE (04:29)
--- NOTE | 2017-09-11 04:58 | PN ---
Physical Exam: SUBJECTIVE: Patient seen and examined at bedside, complain of chest tightness with coughing, feeling of little dizziness. her blood sugar still elevated 318 this AM . OBJECTIVE: Vital Signs Period Temp Pulse Resp BP Sys/Giron Pulse Ox Last 24 Hr 98.1 F-98.5 F 85-93 18-20 116-121/75-76 96-98 GENERAL: Awake, alert, and fully oriented, in no acute distress. HEAD: Normal with no signs of trauma. EYES: Pupils equal, round and reactive to light, extraocular movements intact, sclera anicteric, conjunctiva clear. EARS, NOSE, THROAT: Ears normal, nares patent, oropharynx clear without exudates. dry mucous membranes. NECK: Normal range of motion, supple without lymphadenopathy, LUNGS: Breath sounds equal, clear to auscultation bilaterally. No wheezes, and no crackles. No accessory muscle use. HEART: Regular tachycardic , normal S1 and S2 without murmur, rub or gallop. ABDOMEN: Obese , Soft, nontender, not distended, normoactive bowel sounds, no guarding, no rebound, MUSCULOSKELETAL: Normal range of motion at all joints. No bony deformities or tenderness. No CVA tenderness. UPPER EXTREMITIES: 2+ pulses, warm, well-perfused. No cyanosis. No clubbing. No peripheral edema. LOWER EXTREMITIES: 2+ pulses, warm, well-perfused. No calf tenderness. No peripheral edema. NEUROLOGICAL: Cranial nerves II-XII intact. Normal speech. PSYCHIATRIC: Cooperative. Good eye contact. seems anxious SKIN: Warm, dry, Laboratory Results - last 24 hr 09/09/17 09/10/17 09/10/17 22:57 01:27 06:37 WBC 6.0 D RBC 4.40 Hgb 10.7 D Hct 33.4 MCV 76.0 L MCH 24.4 L MCHC 32.0 RDW 15.1 Plt Count 178 MPV 9.2 Neutrophils % 47.3 D Lymphocytes % 37.2 D Monocytes % 8.8 Eosinophils % 6.2 H Basophils % 0.5 Sodium Potassium Chloride Carbon Dioxide Anion Gap BUN Creatinine Creat Clearance w eGFR POC Glucometer > 400 > 400 Random Glucose Calcium Magnesium Total Bilirubin AST ALT Alkaline Phosphatase Total Protein Albumin 09/10/17 09/10/17 09/10/17 06:37 08:43 11:21 WBC RBC Hgb Hct MCV MCH MCHC RDW Plt Count MPV Neutrophils % Lymphocytes % Monocytes % Eosinophils % Basophils % Sodium 135 L Potassium 4.2 Chloride 105 Carbon Dioxide 25 Anion Gap 5 L BUN 11 Creatinine 0.9 Creat Clearance w eGFR > 60 POC Glucometer 134.00061 184.99500 Random Glucose 343 H* Calcium 7.7 L Magnesium 1.5 L Total Bilirubin 0.3 AST 9 L ALT 19 Alkaline Phosphatase 72 Total Protein 6.8 Albumin 3.2 L 09/10/17 16:53 WBC RBC Hgb Hct MCV MCH MCHC RDW Plt Count MPV Neutrophils % Lymphocytes % Monocytes % Eosinophils % Basophils % Sodium Potassium Chloride Carbon Dioxide Anion Gap BUN Creatinine Creat Clearance w eGFR POC Glucometer [phone] Random Glucose Calcium Magnesium Total Bilirubin AST ALT Alkaline Phosphatase Total Protein Albumin Active Medications Generic Name Dose Route Start Last Admin Trade Name Freq PRN Reason Stop Dose Admin Albuterol Sulfate 1 amp 09/10/17 12:00 09/10/17 16:59 Ventolin 0.5% - NEB 1 amp RQID SHAUN Administration Albuterol Sulfate 1 puff 09/10/17 10:32 09/11/17 04:31 Ventolin Hfa Inhaler - IH 1 puff QID PRN Administration SHORTNESS OF BREATH Aspirin 81 mg 09/10/17 10:00 09/10/17 09:29 Asa - PO 81 mg DAILY SHAUN Administration Atorvastatin Calcium 20 mg 09/10/17 22:00 09/10/17 22:02 Lipitor - PO 20 mg HS SHAUN Administration Clonazepam 0.5 mg 09/09/17 22:01 09/10/17 02:45 Klonopin - PO 0.5 mg BID PRN Administration ANXIETY Fluoxetine HCl 40 mg 09/10/17 10:00 09/10/17 09:29 Prozac - PO 40 mg DAILY SHAUN Administration Gabapentin 600 mg 09/10/17 10:00 09/10/17 22:02 Neurontin - PO Not Given BID SHAUN Gabapentin 900 mg 09/10/17 22:00 09/10/17 22:01 Neurontin - PO 900 mg HS SHAUN Administration Heparin Sodium (Porcine) 5,000 unit 09/09/17 22:00 09/10/17 22:01 Heparin - SQ 5,000 unit TID SHAUN Administration Sodium Chloride 1,000 mls @ 100 mls/hr 09/09/17 22:00 09/10/17 22:03 Normal Saline - IV 100 mls/hr ASDIR SHAUN Administration Insulin Aspart 1 vial 09/09/17 22:00 09/10/17 22:16 Novolog Vial Sliding Scale - SQ 10 units ACHS SHAUN Administration Protocol Insulin Detemir 50 units 09/10/17 07:00 09/10/17 08:48 Levemir Vial SQ 50 units AM SHAUN Administration Levothyroxine Sodium 50 mcg 09/10/17 07:00 09/10/17 08:48 Synthroid - PO 50 mcg DAILY@0700 SHAUN Administration Meclizine HCl 12.5 mg 09/09/17 22:01 Antivert - PO Q6H PRN VERTIGO [id number] Ethyl Esters 1 gm 09/10/17 10:00 09/10/17 22:09 Lovaza - PO Not Given BID SHAUN Oseltamivir Phosphate 75 mg 09/09/17 22:00 09/10/17 22:01 Tamiflu - PO 09/14/17 21:59 75 mg BID SHAUN Administration Tiotropium [place] 1 puff 09/10/17 10:00 09/10/17 10:04 Spiriva - IH Not Given DAILY SHAUN Topiramate 150 mg 09/10/17 10:00 09/10/17 22:10 Topamax - PO Not Given BID [facility] CBC, BMP 09/11/17 07:13 09/11/17 07:13 CXR : No acute pathology HAd CT scan pending reading V/Q scan pending reading ASSESSMENT/PLAN: 52 year old female with PMH of HTN, HLD,Hypothyroidism and syncope presented to ED with one day H/O chest pain pressure like non radiating admitted to R/O PE and ACS ,and due to uncontrolled Blood sugar. # Med sternal chest pain R/O PE , likely plueritic chest pain due to viral bronchitis vs common cold unlikely ACS * Pain local 5/10 non radiating increased with inspiration associated with dry cough, chills * CXR negative for acute process * Influenza A,B rapid not available * isolation precaution droplet * EKG with No S, ST wave changes * CTA negative for PE * O2 as needed to keep o2 sat > 90 * duo-neb * spiriva * start Tamiflue 75 mg po BID * #loc 2/2 Syncope likely 2/2 dehydration due to polyuria and diarrhea , vs seizure * passed out twice yesterday,and 2 days , felt room spinning , unwitnessed * denies hitting her head , reports headache 01/07 * IV fluids * orthostatics * EKG did not show any ST,T wave changes * fall precautions * cardiology consulted agree with current management * Fall precautions * Consider Tilt table test at some point as outpatient # ALEJANDRO likely pre renal due to volume depletion , diarrhea , resolved * BUN/CR 15/1.1.....13/0.9 * IV fluids * Monitor BUN/Cr * # DM, uncontrolled * Hyperglycemic on admission with glu 315 without DKA * Hold oral agents victoza * ISS 15 units TID * continue levemir 50 Q AM , add 20 units at bed time * given 5 units IV at dinner today due to hyperglycemia >400 # H/O Seizure on Topramax 150 BID , consider adding Vimpat # HTN , controlled * Resume home meds : # HLD * continue lipitor 20 mg po daily # hypothyroidism , * continue Synthroid 50 mcg daily # H/O sleep apnea with no CPAP At home F/U as out pt #FEN * F: NS 2L boluses in ED , maintenance NS @ 100 cc/hr * E: monitor and replinised as needed * N: diabetic low sodium diet # Proph * DVT: moderate risk , SCS both legs , Hep 5000 SQ Q8hr * GI: No need for now # Dispo * Admit to observation Visit type - Emergency Visit Emergency Visit: Yes ED Registration Date: 09/09/17 Care time: The patient presented to the Emergency Department on the above date and was hospitalized for further evaluation of their emergent condition. - New Patient This patient is new to me today: No - Critical Care Critical Care patient: No - Discharge Referral Referred to [facility] Med P.C.: No
[2017-09-11] MEDS ORDERED: HEPARIN NA (PORCINE) 5,000 UNITS/ML 1ML VIAL ONE (06:40)
[2017-09-11] MEDS ORDERED: INSULIN DETEMIR 100 UNITS/ML MDV SQ ONE (06:42)
[2017-09-11] MEDS ORDERED: LEVOTHYROXINE NA 25 MCG TABLET (FP) ONE (06:43)
[2017-09-11] MEDS: HEPARIN NA (PORCINE) 5,000 UNITS/ML 1ML VIAL SQ SCH ×3 (06:48→22:41)
[2017-09-11] MEDS: INSULIN DETEMIR 100 UNITS/ML MDV SQ SCH (06:50)
[2017-09-11] MEDS: INSULIN SLIDING SCALE (NOVOLOG) 1 VIAL SQ SCH ×3 (06:51→18:43)
[2017-09-11] MEDS: LEVOTHYROXINE NA 50 MCG TABLET (FP) PO SCH (06:51)
[2017-09-11 07:56] LABS: BASO % 0.7 % (0-2.0); EOS % 5.4 % (0-4.5); HEMATOCRIT 37.2 % (32.4-45.2); HEMOGLOBIN 11.8 GM/dL (10.7-15.3); LYMPH % 31.7 % (8-40); MCH 24.4 pg (25.7-33.7); MCHC 31.7 g/dl (32.0-36.0); MEAN CELL VOLUME 76.8 fl (80-96); MEAN PLT VOLUME 9.5 fl (7.5-11.1); MONO % 8.2 % (3.8-10.2); RBC 4.85 M/mm3 (3.60-5.2); RDW 15.2 % (11.6-15.6); WHITE BLOOD COUNT 6.9 K/mm3 (4.0-10.0)
[2017-09-11 08:07] LABS: ANION GAP 9 (8-16); BLOOD UREA NITROGEN 13 mg/dL (7-18); CALCIUM 8.3 mg/dL (8.5-10.1); CHLORIDE 105 mmol/L (98-107); CO2 22 mmol/L (21-32); CREATININE 0.9 mg/dL (0.55-1.02); MAGNESIUM 1.9 mg/dL (1.8-2.4); PHOSPHOROUS 3.3 mg/dL (2.5-4.9); POTASSIUM 4.2 mmol/L (3.5-5.1); SODIUM 136 mmol/L (136-145)
[2017-09-11 08:33] LABS: GLUCOSE,RANDOM 318 mg/dL (74-106)
[2017-09-11] MEDS: ALBUTEROL SO4 0.5 % INH SOLN 2.5 MG/0.5 ML VIAL.NEB. NEB SCH ×5 (08:45→20:02)
[2017-09-11 09:57] LABS: PLATELET COUNT 187 K/MM3 (134-434)
[2017-09-11] MEDS: ASPIRIN 81 MG CHEWABLE TABLETS PO SCH (10:46)
[2017-09-11] MEDS: GABAPENTIN 300 MG CAPSULE (FP) PO SCH ×3 (10:46→22:48)
[2017-09-11] MEDS: TIOTROPIUM BROMIDE 18 MCG/INH (DEVICE W/ 5 CAPSULES) IH SCH (10:46)
[2017-09-11] MEDS: OMEGA-3 ACID ETHYL ESTERS (FATTY-ACIDS) 1 GM CAPSULE (FP) PO SCH ×2 (10:46→22:49)
[2017-09-11] MEDS: FLUoxetine HCL 20 MG CAPSULE (FP) PO SCH (10:46)
[2017-09-11] MEDS: TOPIRAMATE 100 MG TABLET PO SCH ×2 (10:46→22:49)
[2017-09-11] MEDS: OSELTAMIVIR PHOSPHATE 75 MG CAPSULE PO SCH ×2 (10:46→22:49)
--- NOTE | 2017-09-11 12:42 | PN ---
Progress Note, Physician Chief Complaint: Events noted Seen in Ultrasound Complains of shortness of breath and dizziness History of Present Illness: Patient was seen and examined. Awake and alert. Chart was reviewed Denies chest pain, but complains of dizziness and intermittent shortness of breath - Current Medication List Current Medications: Active Medications Albuterol Sulfate (Ventolin 0.5% -) 1 amp NEB RQID [facility] Last Admin: 09/11/17 08:45 Dose: 1 amp Albuterol Sulfate (Ventolin Hfa Inhaler -) 1 puff IH QID PRN PRN Reason: SHORTNESS OF BREATH Last Admin: 09/11/17 04:31 Dose: 1 puff Aspirin (Asa -) 81 mg PO DAILY [facility] Last Admin: 09/11/17 10:46 Dose: 81 mg Atorvastatin Calcium (Lipitor -) 20 mg PO HS [facility] Last Admin: 09/10/17 22:02 Dose: 20 mg Clonazepam (Klonopin -) 0.5 mg PO BID PRN PRN Reason: ANXIETY Last Admin: 09/10/17 02:45 Dose: 0.5 mg Fluoxetine HCl (Prozac -) 40 mg PO DAILY [facility] Last Admin: 09/11/17 10:46 Dose: 40 mg Gabapentin (Neurontin -) 600 mg PO BID [facility] Last Admin: 09/11/17 10:46 Dose: 600 mg Gabapentin (Neurontin -) 900 mg PO HS [facility] Last Admin: 09/10/17 22:01 Dose: 900 mg Heparin Sodium (Porcine) (Heparin -) 5,000 unit SQ TID [facility] Last Admin: 09/11/17 06:48 Dose: 5,000 unit Sodium Chloride (Normal Saline -) 1,000 mls @ 100 mls/hr IV ASDIR [facility] Last Admin: 09/10/17 22:03 Dose: 100 mls/hr Insulin Aspart (Novolog Vial Sliding Scale -) 1 vial SQ ACHS [facility] PRN Reason: Protocol Last Admin: 09/11/17 06:51 Dose: 10 units Insulin Detemir (Levemir Vial) 50 units SQ AM [facility] Last Admin: 09/11/17 06:50 Dose: 50 units Insulin Detemir (Levemir Vial) 15 units SQ HS [facility] Levothyroxine Sodium (Synthroid -) 50 mcg PO DAILY@0700 [facility] Last Admin: 09/11/17 06:51 Dose: 50 mcg Meclizine HCl (Antivert -) 12.5 mg PO Q6H PRN PRN Reason: VERTIGO [id number] Ethyl Esters (Lovaza -) 1 gm PO BID [facility] Last Admin: 09/11/17 10:46 Dose: 1 gm Oseltamivir Phosphate (Tamiflu -) 75 mg PO BID [facility] Stop: 09/14/17 21:59 Last Admin: 09/11/17 10:46 Dose: 75 mg Tiotropium [place] (Spiriva -) 1 puff IH DAILY [facility] Last Admin: 09/11/17 10:46 Dose: Not Given Topiramate (Topamax -) 150 mg PO BID [facility] Last Admin: 09/11/17 10:46 Dose: 150 mg - Objective Vital Signs: Vital Signs Temperature 97.8 F 09/11/17 06:00 Pulse Rate 90 09/11/17 09:07 Respiratory Rate 22 09/11/17 09:07 Blood Pressure 110/85 09/11/17 09:07 O2 Sat by Pulse Oximetry (%) 100 09/11/17 09:07 Eyes: Yes: PERRL HENT: Yes: Atraumatic Neck: Yes: Supple Cardiovascular: Yes: Regular Rate and Rhythm, S1, S2. No: Murmur Respiratory: Yes: Diminished Gastrointestinal: Yes: Normal Bowel Sounds, Soft, Abdomen, Obese. No: Tenderness Edema: No Additional Findings/Remarks: - Review of Systems Constitutional: denies: Chills, Fever Cardiovascular: denies: Chest Pain, Palpitations, (+) Shortness of Breath Respiratory: denies: Cough, Hemoptysis, Orthopnea, PND, (+) SOB, SOB on Exertion Gastrointestinal: denies: Abdominal Pain, Constipation, Diarrhea, Melena, Nausea , Rectal Bleeding, Vomiting Neurological: reports: Weakness, (+) Dizziness, Headache, (?) Seizure, (-) Syncope Labs: CBC, BMP 09/11/17 07:13 09/11/17 07:13 Problem List - Problems (1) HTN (hypertension) Code(s): I10 - ESSENTIAL (PRIMARY) HYPERTENSION Qualifiers: Hypertension type: essential hypertension Qualified Code(s): I10 - Essential (primary) hypertension (2) Hypercholesterolemia Code(s): E78.00 - PURE HYPERCHOLESTEROLEMIA, UNSPECIFIED (3) Anxiety Code(s): F41.9 - ANXIETY DISORDER, UNSPECIFIED (4) Diabetes mellitus, insulin dependent (IDDM), uncontrolled Code(s): E10.65 - TYPE 1 DIABETES MELLITUS WITH HYPERGLYCEMIA Qualifiers: Diabetes mellitus complication status: without complication Qualified Code( s): E10.65 - Type 1 diabetes mellitus with hyperglycemia (5) Dizziness Code(s): R42 - DIZZINESS AND GIDDINESS (6) MARILU (obstructive sleep apnea) Code(s): G47.33 - OBSTRUCTIVE SLEEP APNEA (ADULT) (PEDIATRIC) (7) Shortness of breath Code(s): R06.02 - SHORTNESS OF BREATH (8) Weakness Code(s): R53.1 - WEAKNESS (9) Syncope Code(s): R55 - SYNCOPE AND COLLAPSE Qualifiers: Syncope type: unspecified Qualified Code(s): R55 - Syncope and collapse Assessment/Plan 1. SOB , malaise , body aches - etiology to be determined 2. Recurrent syncope, etiology to be determined 2. Hypertension 3. Hypercholesterolemia 4. Diabetes mellitus - Insulin requiring 5. Morbid obesity with probable obstructive sleep apnea 6. Anxiety disorder (severe) 7. Hypothyroidism 8. Atypical chest pain 9. Probable bronchial asthma PLAN: 1. Tamiflu, bronchodilator, O2 as needed and DVT prophylaxis 2. Continue current medical therapy including Lipitor, Lovaza and ASA. Consider restarting ACEI or ARB if not contraindicated 3. Anxiety management 4. Obstructive sleep apnea needs to be addressed and possible CPAP if clinically indicated 5. Consider Tilt table test at some point as outpatient 6. Transthoracic echocardiography to assess LV/RV and valvular function 7. Just had renal/bladder ultrasound. Result pending Further plans are to follow Herberth Werner MD
[2017-09-11] MEDS ORDERED: INSULIN (NOVOLOG) ASPART 100 UNITS/ML 10ML VIAL ONE (13:57)
--- NOTE | 2017-09-11 18:33 | PN ---
Teaching Attending Note Name of Resident: Vicente Cardoza ATTENDING PHYSICIAN STATEMENT I saw and evaluated the patient. I reviewed the resident's note and discussed the case with the resident. I agree with the resident's findings and plan as documented. SUBJECTIVE: no fever or chills, has no abd pain, does not feel well, no syncope last night no shaking episodes. OBJECTIVE: NAD, pleasant obese female CV: RRR, no MRG, no JVD Lungs: CTAB Ext: no edema ASSESSMENT AND PLAN: 52 y/o lady with h/o recurrent syncopes, possible recurrent seizures, CVA , HTN , Bipolar , IDDM, , hypothyroidism and other medical problems who presented with syncope x 2 and SOB with malaise 1- SOB: Possible flu : - cont tamiflu day 2 - Albutero Nebs - cont inhalers - PFTs as out pt . has Sleep apnea but does not use CPAP. - add CPAP at HS while here 2- Syncope :was w/u in past. can't r/o eizure activity - cont topiramate - No need to repeat EEG as inpt - appreciate neuro help. oout pt prolonged EEG 3- DM : uncontrolled sugar. - cont levemir 50 am. add 15 units of levemir HS - SSI - pt admitted totake 15 units of prandial novolog TI d. will add - sugar 400 at 2 pm, received 10 units , was not notified. will recheck and if cont to be high will send BMP 4- h/o CVA : cont ASA - cont lipitor 5- Hematuria resolved. US obtained . no bladder etiology but endometrial thickening. 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 6- cont Heparin SQ .
[2017-09-11] MEDS ORDERED: INSULIN REGULAR HUMAN 100 UNITS/ML *VIAL IVPUSH ONE (18:36)
[2017-09-11 20:06] LABS: ANION GAP 8 (8-16); BLOOD UREA NITROGEN 12 mg/dL (7-18); CALCIUM 8.2 mg/dL (8.5-10.1); CHLORIDE 106 mmol/L (98-107); CO2 21 mmol/L (21-32); CREATININE 1.2 mg/dL (0.55-1.02); GLUCOSE,RANDOM 288 mg/dL (74-106); POTASSIUM 3.6 mmol/L (3.5-5.1); SODIUM 135 mmol/L (136-145)
[2017-09-11] MEDS ORDERED: INSULIN DETEMIR 100 UNITS/ML MDV SQ SCH ×2 (22:00)
[2017-09-11] MEDS: ATORVASTATIN CA 20 MG TABLET (FP) PO SCH (22:41)
[2017-09-11] MEDS: clonazePAM 0.5 MG TABLET PO PRN (22:48)
[2017-09-11] MEDS: SODIUM CHLORIDE 1,000 ML IV SCH (22:50)
[2017-09-12] MEDS: HEPARIN NA (PORCINE) 5,000 UNITS/ML 1ML VIAL SQ SCH ×3 (06:16→21:35)
[2017-09-12] MEDS: LEVOTHYROXINE NA 50 MCG TABLET (FP) PO SCH (06:16)
[2017-09-12] MEDS: INSULIN DETEMIR 100 UNITS/ML MDV SQ SCH ×2 (06:16→21:35)
[2017-09-12] MEDS: Insulin (LOG) Aspart 100 UNITS/ML VIAL SQ SCH ×2 (06:17→11:52)
[2017-09-12] MEDS: INSULIN SLIDING SCALE (NOVOLOG) 1 VIAL SQ SCH ×3 (06:27→17:19)
[2017-09-12 07:13] LABS: ALBUMIN 3.2 g/dl (3.4-5.0); ALK PHOS 77 U/L (45-117); ANION GAP 8 (8-16); BILIRUBIN,TOTAL 0.2 mg/dL (0.2-1.0); BLOOD UREA NITROGEN 13 mg/dL (7-18); CALCIUM 8.6 mg/dL (8.5-10.1); CHLORIDE 102 mmol/L (98-107); CO2 23 mmol/L (21-32); SGOT/AST 12 U/L (15-37); SGPT/ALT 19 U/L (12-78); SODIUM 133 mmol/L (136-145); TOT PROT 7.1 g/dl (6.4-8.2)
[2017-09-12 07:14] LABS: HEMATOCRIT 33.4 % (32.4-45.2); HEMOGLOBIN 10.8 GM/dL (10.7-15.3); MCH 24.9 pg (25.7-33.7); MCHC 32.4 g/dl (32.0-36.0); MEAN CELL VOLUME 76.7 fl (80-96); MEAN PLT VOLUME 9.7 fl (7.5-11.1); PLATELET COUNT 179 K/MM3 (134-434); RBC 4.36 M/mm3 (3.60-5.2); RDW 15.3 % (11.6-15.6); WHITE BLOOD COUNT 7.3 K/mm3 (4.0-10.0)
[2017-09-12 07:18] LABS: GLUCOSE,RANDOM 462 mg/dL (74-106)
[2017-09-12 07:39] LABS: MAGNESIUM 1.7 mg/dL (1.8-2.4); PHOSPHOROUS 2.7 mg/dL (2.5-4.9)
[2017-09-12] MEDS ORDERED: MAGNESIUM SULF 50% (8.12 MEQ/2 ML-1 GM VIAL) IVPB ONE ×2 (08:24→11:28)
[2017-09-12] MEDS: ALBUTEROL SO4 0.5 % INH SOLN 2.5 MG/0.5 ML VIAL.NEB. NEB SCH ×4 (08:54→20:39)
[2017-09-12 08:55] LABS: ANION GAP 9 (8-16); BLOOD UREA NITROGEN 12 mg/dL (7-18); CHLORIDE 107 mmol/L (98-107); CO2 21 mmol/L (21-32); POTASSIUM 4.1 mmol/L (3.5-5.1); SODIUM 137 mmol/L (136-145)
[2017-09-12] MEDS ORDERED: MAGNESIUM 1GM/D5W - 1 GM/100 ML IVPB IVPB ONE (09:00)
[2017-09-12 09:03] LABS: GLUCOSE,RANDOM 362 mg/dL (74-106)
[2017-09-12] MEDS ORDERED: PT OWN MED DRAWER 7, Y5N ONE ×4 (10:29→22:16)
[2017-09-12] MEDS: GABAPENTIN 300 MG CAPSULE (FP) PO SCH ×2 (10:33→21:35)
[2017-09-12] MEDS: LOSARTAN POTASSIUM 25 MG TABLET PO SCH (10:33)
[2017-09-12] MEDS: FLUoxetine HCL 20 MG CAPSULE (FP) PO SCH (10:34)
[2017-09-12] MEDS: ASPIRIN 81 MG CHEWABLE TABLETS PO SCH (10:34)
[2017-09-12] MEDS: OMEGA-3 ACID ETHYL ESTERS (FATTY-ACIDS) 1 GM CAPSULE (FP) PO SCH ×2 (10:35→21:34)
[2017-09-12] MEDS: OSELTAMIVIR PHOSPHATE 75 MG CAPSULE PO SCH ×2 (10:35→21:34)
[2017-09-12] MEDS: TOPIRAMATE 100 MG TABLET PO SCH ×2 (10:35→21:34)
[2017-09-12] MEDS: SODIUM CHLORIDE 1,000 ML IV SCH ×2 (10:37→21:35)
[2017-09-12 11:02] LABS: URINE APPEARANCE CLEAR; URINE BILIRUBIN NEGATIVE (NEGATIVE); URINE BLOOD 1+ (NEGATIVE); URINE COLOR COLORLESS; URINE GLUCOSE (UA) 3+ (NEGATIVE); URINE KETONE NEGATIVE (NEGATIVE); URINE LEUK ESTERASE NEGATIVE (NEGATIVE); URINE NITRITE NEGATIVE (NEGATIVE); URINE PROTEIN NEGATIVE (NEGATIVE); URINE UROBILINOGEN NEGATIVE mg/dL (0.2-1.0)
[2017-09-12 11:36] LABS: EPI CELLS RARE /HPF (FEW)
[2017-09-12] MEDS ORDERED: metoPROLOL SUCCINATE 25 MG TAB.SR.24H (FP) PO SCH (12:15)
--- NOTE | 2017-09-12 12:16 | PN ---
Progress Note, Physician Chief Complaint: Events noted Complains of shortness of breath and palpitations History of Present Illness: Patient was seen and examined. Awake and alert. Chart was reviewed Denies chest pain, but complains of palpitations Monitor reveals intermittent tachycardia unclear as to rhythm cannot exclude SVT with aberrancy vs. artifact - Current Medication List Current Medications: Active Medications Albuterol Sulfate (Ventolin 0.5% -) 1 amp NEB RQID [facility] Last Admin: 09/12/17 08:54 Dose: 1 amp Albuterol Sulfate (Ventolin Hfa Inhaler -) 1 puff IH QID PRN PRN Reason: SHORTNESS OF BREATH Last Admin: 09/11/17 04:31 Dose: 1 puff Aspirin (Asa -) 81 mg PO DAILY [facility] Last Admin: 09/12/17 10:34 Dose: 81 mg Atorvastatin Calcium (Lipitor -) 20 mg PO HS [facility] Last Admin: 09/11/17 22:41 Dose: 20 mg Clonazepam (Klonopin -) 0.5 mg PO BID PRN PRN Reason: ANXIETY Last Admin: 09/11/17 22:48 Dose: 0.5 mg Fluoxetine HCl (Prozac -) 40 mg PO DAILY [facility] Last Admin: 09/12/17 10:34 Dose: 40 mg Gabapentin (Neurontin -) 600 mg PO BID [facility] Last Admin: 09/12/17 10:33 Dose: 600 mg Gabapentin (Neurontin -) 900 mg PO HS [facility] Last Admin: 09/11/17 22:48 Dose: 900 mg Heparin Sodium (Porcine) (Heparin -) 5,000 unit SQ TID [facility] Last Admin: 09/12/17 06:16 Dose: 5,000 unit Sodium Chloride (Normal Saline -) 1,000 mls @ 100 mls/hr IV ASDIR [facility] Last Admin: 09/12/17 10:37 Dose: 100 mls/hr Insulin Aspart (Novolog Vial Sliding Scale -) 1 vial SQ TIDAC [facility] PRN Reason: Protocol Last Admin: 09/12/17 11:51 Dose: 10 units Insulin Detemir (Levemir Vial) 50 units SQ AM [facility] Last Admin: 09/12/17 06:16 Dose: 50 units Insulin Detemir (Levemir Vial) 30 units SQ HS [facility] Levothyroxine Sodium (Synthroid -) 50 mcg PO DAILY@0700 [facility] Last Admin: 09/12/17 06:16 Dose: 50 mcg Losartan Potassium (Cozaar -) 25 mg PO DAILY [facility] Last Admin: 09/12/17 10:33 Dose: 25 mg Meclizine HCl (Antivert -) 12.5 mg PO Q6H PRN PRN Reason: VERTIGO Last Admin: 09/12/17 10:36 Dose: 12.5 mg Metoprolol Succinate (Toprol Xl -) 12.5 mg PO DAILY [facility] Deuzc-6-Mcia Ethyl Esters (Lovaza -) 1 gm PO BID [facility] Last Admin: 09/12/17 10:35 Dose: 1 gm Oseltamivir Phosphate (Tamiflu -) 75 mg PO BID [facility] Stop: 09/14/17 21:59 Last Admin: 09/12/17 10:35 Dose: 75 mg Tiotropium [place] (Spiriva -) 1 puff IH DAILY [facility] Last Admin: 09/11/17 10:46 Dose: Not Given Topiramate (Topamax -) 150 mg PO BID [facility] Last Admin: 09/12/17 10:35 Dose: 150 mg - Objective Vital Signs: Vital Signs Temperature 98.4 F 09/12/17 10:17 Pulse Rate 105 H 09/12/17 10:17 Respiratory Rate 17 09/12/17 10:17 Blood Pressure 126/85 09/12/17 10:17 O2 Sat by Pulse Oximetry (%) 98 09/12/17 01:00 Constitutional: Yes: Anxious HENT: Yes: Atraumatic Neck: Yes: Supple Cardiovascular: Yes: Regular Rate and Rhythm, Tachycardia, S1, S2 Respiratory: Yes: Diminished Gastrointestinal: Yes: Normal Bowel Sounds, Soft, Abdomen, Obese. No: Tenderness Edema: No Additional Findings/Remarks: - Review of Systems Constitutional: denies: Chills, Fever Cardiovascular: denies: Chest Pain, (+) Palpitations, (+) Shortness of Breath Respiratory: denies: Cough, Hemoptysis, Orthopnea, PND, (+) SOB, SOB on Exertion Gastrointestinal: denies: Abdominal Pain, Constipation, Diarrhea, Melena, Nausea , Rectal Bleeding, Vomiting Neurological: reports: Weakness, (+) Dizziness, Headache, (?) Seizure, (-) Syncope Labs: CBC, BMP 09/12/17 05:35 INR, PTT INR 0.94 (0.82-1.09) 09/09/17 18:56 Problem List - Problems (1) HTN (hypertension) Code(s): I10 - ESSENTIAL (PRIMARY) HYPERTENSION Qualifiers: Hypertension type: essential hypertension Qualified Code(s): I10 - Essential (primary) hypertension (2) Hypercholesterolemia Code(s): E78.00 - PURE HYPERCHOLESTEROLEMIA, UNSPECIFIED (3) Anxiety Code(s): F41.9 - ANXIETY DISORDER, UNSPECIFIED (4) Diabetes mellitus, insulin dependent (IDDM), uncontrolled Code(s): E10.65 - TYPE 1 DIABETES MELLITUS WITH HYPERGLYCEMIA Qualifiers: Diabetes mellitus complication status: without complication Qualified Code( s): E10.65 - Type 1 diabetes mellitus with hyperglycemia (5) Dizziness Code(s): R42 - DIZZINESS AND GIDDINESS (6) MARILU (obstructive sleep apnea) Code(s): G47.33 - OBSTRUCTIVE SLEEP APNEA (ADULT) (PEDIATRIC) (7) Shortness of breath Code(s): R06.02 - SHORTNESS OF BREATH (8) Weakness Code(s): R53.1 - WEAKNESS (9) Syncope Code(s): R55 - SYNCOPE AND COLLAPSE Qualifiers: Syncope type: unspecified Qualified Code(s): R55 - Syncope and collapse Assessment/Plan 1. SOB , malaise , body aches - etiology to be determined and palpitations, rule out arrhythmia 2. Recurrent syncope, etiology to be determined 2. Hypertension 3. Hypercholesterolemia 4. Diabetes mellitus - Insulin requiring 5. Morbid obesity with probable obstructive sleep apnea 6. Anxiety disorder (severe) 7. Hypothyroidism 8. Atypical chest pain 9. Probable bronchial asthma PLAN: 1. Tamiflu, bronchodilator, O2 as needed and DVT prophylaxis - currently in contact isolation 2. Continue current medical therapy including Lipitor, Lovaza and ASA. Continue Losartan as tolerated 3. Anxiety management 4. Obstructive sleep apnea needs to be addressed and possible CPAP if clinically indicated 5. Consider Tilt table test at some point as outpatient 6. Transthoracic echocardiography was reviewed - normal LV systolic function 7. Likely artifact on the night monitor - consider Holter to confirm Further plans are to follow Herberth Werner MD
[2017-09-12 12:23] LABS: ANION GAP 9 (8-16); BLOOD UREA NITROGEN 12 mg/dL (7-18); CALCIUM 8.3 mg/dL (8.5-10.1); CHLORIDE 103 mmol/L (98-107); CO2 22 mmol/L (21-32); POTASSIUM 3.9 mmol/L (3.5-5.1); SODIUM 134 mmol/L (136-145)
[2017-09-12 12:41] LABS: GLUCOSE,RANDOM 361 mg/dL (74-106)
--- NOTE | 2017-09-12 13:33 | PN ---
Physical Exam: SUBJECTIVE: Patient seen and examined at bedside. she is very anxious , had on run od NSVT over night (artificat likely ). sugar poorly controlled. breathing is better. denies any fever, chills, N/V/D/C. OBJECTIVE: Vital Signs Period Temp Pulse Resp BP Sys/Giron Pulse Ox Last 24 Hr 97.8 F-98.7 F 93-106 17-24 109-143/66-85 97-98 GENERAL: AAOx3 in NAD HEAD: NC/AT EYES: EOMI, Conjunctiva clear, sclera anicteric ENT: dry mucous membrane NECK: Supple, no JVD LUNGS: CTAB/L , no wheezes HEART: RRR, NSR, normal s1, s2, soft murmur , no M/R/G ABDOMEN: Obese,Soft, ND, NT, +BS 4 Q, no CVA Tenderness LOWER EXTREMITIES: no edema, +2 pulse, B/L scar medial side. NEUROLOGICAL: Cranial nerves II-XII intact. Normal speech. gait not observed. PSYCHIATRIC: Cooperative. Good eye contact. Appropriate mood and affect. SKIN: Warm, dry, Laboratory Results - last 24 hr 09/11/17 09/11/17 09/11/17 12:49 13:52 18:31 WBC RBC Hgb Hct MCV MCH MCHC RDW Plt Count MPV Sodium Potassium Chloride Carbon Dioxide Anion Gap BUN Creatinine Creat Clearance w eGFR POC Glucometer > 400 > 400 > 400 Random Glucose Calcium Phosphorus Magnesium Total Bilirubin AST ALT Alkaline Phosphatase Troponin I Total Protein Albumin TSH Urine Color Urine Appearance Urine pH Ur Specific [place] Urine Protein Urine Glucose (UA) Urine Ketones Urine Blood Urine Nitrite Urine Bilirubin Urine Urobilinogen Ur Leukocyte Esterase Urine WBC (Auto) Urine RBC (Auto) Ur Epithelial Cells 09/11/17 09/11/17 09/12/17 19:35 21:30 05:35 WBC 7.3 RBC 4.36 Hgb 10.8 Hct 33.4 MCV 76.7 L MCH 24.9 L MCHC 32.4 RDW 15.3 Plt Count 179 MPV 9.7 Sodium 135 L Potassium 3.6 Chloride 106 Carbon Dioxide 21 Anion Gap 8 BUN 12 Creatinine 1.2 H Creat Clearance w eGFR POC Glucometer 268 Random Glucose 288 H Calcium 8.2 L Phosphorus Magnesium Total Bilirubin AST ALT Alkaline Phosphatase Troponin I Total Protein Albumin TSH Urine Color Urine Appearance Urine pH Ur Specific [place] Urine Protein Urine Glucose (UA) Urine Ketones Urine Blood Urine Nitrite Urine Bilirubin Urine Urobilinogen Ur Leukocyte Esterase Urine WBC (Auto) Urine RBC (Auto) Ur Epithelial Cells 09/12/17 09/12/17 09/12/17 05:35 05:35 05:35 WBC RBC Hgb Hct MCV MCH MCHC RDW Plt Count MPV Sodium 133 L Potassium 4.0 Chloride 102 Carbon Dioxide 23 Anion Gap 8 BUN 13 Creatinine 1.0 Creat Clearance w eGFR 58.69 POC Glucometer Random Glucose 462 H* Calcium 8.6 Phosphorus 2.7 Magnesium 1.7 L Total Bilirubin 0.2 D AST 12 L ALT 19 Alkaline Phosphatase 77 Troponin I < 0.02 Total Protein 7.1 Albumin 3.2 L TSH Urine Color Urine Appearance Urine pH Ur Specific [place] Urine Protein Urine Glucose (UA) Urine Ketones Urine Blood Urine Nitrite Urine Bilirubin Urine Urobilinogen Ur Leukocyte Esterase Urine WBC (Auto) Urine RBC (Auto) Ur Epithelial Cells 09/12/17 09/12/17 09/12/17 06:10 07:43 08:14 WBC RBC Hgb Hct MCV MCH MCHC RDW Plt Count MPV Sodium 137 Potassium 4.1 Chloride 107 Carbon Dioxide 21 Anion Gap 9 BUN 12 Creatinine 1.0 Creat Clearance w eGFR POC Glucometer 455 374 Random Glucose 362 H* Calcium 8.0 L Phosphorus Magnesium Total Bilirubin AST ALT Alkaline Phosphatase Troponin I Total Protein Albumin TSH Urine Color Urine Appearance Urine pH Ur Specific [place] Urine Protein Urine Glucose (UA) Urine Ketones Urine Blood Urine Nitrite Urine Bilirubin Urine Urobilinogen Ur Leukocyte Esterase Urine WBC (Auto) Urine RBC (Auto) Ur Epithelial Cells 09/12/17 09/12/17 09/12/17 10:25 11:47 11:50 WBC RBC Hgb Hct MCV MCH MCHC RDW Plt Count MPV Sodium 134 L Potassium 3.9 Chloride 103 Carbon Dioxide 22 Anion Gap 9 BUN 12 Creatinine 1.0 Creat Clearance w eGFR POC Glucometer 382 Random Glucose 361 H* Calcium 8.3 L Phosphorus Magnesium Total Bilirubin AST ALT Alkaline Phosphatase Troponin I Total Protein Albumin TSH Urine Color Colorless Urine Appearance Clear Urine pH 8.0 D Ur Specific [place] 1.009 Urine Protein Negative Urine Glucose (UA) 3+ H Urine Ketones Negative Urine Blood 1+ H Urine Nitrite Negative Urine Bilirubin Negative Urine Urobilinogen Negative Ur Leukocyte Esterase Negative Urine WBC (Auto) <1 Urine RBC (Auto) None Ur Epithelial Cells Rare 09/12/17 12:30 WBC RBC Hgb Hct MCV MCH MCHC RDW Plt Count MPV Sodium Potassium Chloride Carbon Dioxide Anion Gap BUN Creatinine Creat Clearance w eGFR POC Glucometer Random Glucose Calcium Phosphorus Magnesium Total Bilirubin AST ALT Alkaline Phosphatase Troponin I Total Protein Albumin TSH 3.18 Urine Color Urine Appearance Urine pH Ur Specific [place] Urine Protein Urine Glucose (UA) Urine Ketones Urine Blood Urine Nitrite Urine Bilirubin Urine Urobilinogen Ur Leukocyte Esterase Urine WBC (Auto) Urine RBC (Auto) Ur Epithelial Cells Active Medications Generic Name Dose Route Start Last Admin Trade Name Freq PRN Reason Stop Dose Admin Albuterol Sulfate 1 amp 09/10/17 12:00 09/12/17 08:54 Ventolin 0.5% - NEB 1 amp RQID SHAUN Administration Albuterol Sulfate 1 puff 09/10/17 10:32 09/11/17 04:31 Ventolin Hfa Inhaler - IH 1 puff QID PRN Administration SHORTNESS OF BREATH Aspirin 81 mg 09/10/17 10:00 09/12/17 10:34 Asa - PO 81 mg DAILY SHAUN Administration Atorvastatin Calcium 20 mg 09/10/17 22:00 09/11/17 22:41 Lipitor - PO 20 mg HS SHAUN Administration Clonazepam 0.5 mg 09/09/17 22:01 09/11/17 22:48 Klonopin - PO 0.5 mg BID PRN Administration ANXIETY Fluoxetine HCl 40 mg 09/10/17 10:00 09/12/17 10:34 Prozac - PO 40 mg DAILY SHAUN Administration Gabapentin 600 mg 09/10/17 10:00 09/12/17 10:33 Neurontin - PO 600 mg BID SHAUN Administration Gabapentin 900 mg 09/10/17 22:00 09/11/17 22:48 Neurontin - PO 900 mg HS SHAUN Administration Heparin Sodium (Porcine) 5,000 unit 09/09/17 22:00 09/12/17 06:16 Heparin - SQ 5,000 unit TID SHAUN Administration Sodium Chloride 1,000 mls @ 100 mls/hr 09/09/17 22:00 09/12/17 10:37 Normal Saline - IV 100 mls/hr ASDIR SHAUN Administration Insulin Aspart 1 vial 09/12/17 07:00 09/12/17 11:51 Novolog Vial Sliding Scale - SQ 10 units TIDAC SHAUN Administration Protocol Insulin Detemir 50 units 09/10/17 07:00 09/12/17 06:16 Levemir Vial SQ 50 units AM SHAUN Administration Insulin Detemir 30 units 09/12/17 22:00 Levemir Vial SQ HS [facility] Levothyroxine Sodium 50 mcg 09/10/17 07:00 09/12/17 06:16 Synthroid - PO 50 mcg DAILY@0700 SHAUN Administration Losartan Potassium 25 mg 09/12/17 10:00 09/12/17 10:33 Cozaar - PO 25 mg DAILY SHAUN Administration Meclizine HCl 12.5 mg 09/09/17 22:01 09/12/17 10:36 Antivert - PO 12.5 mg Q6H PRN Administration VERTIGO Kvanp-8-Bndj Ethyl Esters 1 gm 09/10/17 10:00 09/12/17 10:35 Lovaza - PO 1 gm BID SHAUN Administration Oseltamivir Phosphate 75 mg 09/09/17 22:00 09/12/17 10:35 Tamiflu - PO 09/14/17 21:59 75 mg BID SHAUN Administration Tiotropium [place] 1 puff 09/10/17 10:00 09/11/17 10:46 Spiriva - IH Not Given DAILY SHAUN Topiramate 150 mg 09/10/17 10:00 09/12/17 10:35 Topamax - PO 150 mg BID SHAUN Administration CBC, BMP 09/12/17 05:35 09/12/17 11:47 ASSESSMENT/PLAN: 52 year old female with PMH of HTN, HLD,Hypothyroidism and syncope presented to ED with one day H/O chest pain pressure like non radiating admitted to R/O PE and ACS ,and due to uncontrolled Blood sugar. # Med sternal chest pain PE ruled out , likely plueritic chest pain due to viral bronchitis vs common cold unlikely ACS * Pain local 5/10 non radiating increased with inspiration associated with dry cough, chills * CXR negative for acute process * Influenza A,B rapid not available * isolation precaution droplet * EKG with No S, ST wave changes * CTA negative for PE * O2 as needed to keep o2 sat > 90 * duo-neb * spiriva * start Tamiflue 75 mg po BID * # NSVT on monitor last night maicol agosto * Contact Acid Plant Operator Consulted , will put her on holter monitor to R/L arrhythmia * TSH 3.h * continue extruder operator multiple * Transthoracic echocardiography :normal LV systolic function #loc 2/2 Syncope likely 2/2 dehydration due to polyuria and diarrhea , vs seizure vs arrhythmia * passed out twice yesterday,and 2 days , felt room spinning , unwitnessed * denies hitting her head , reports headache 01/07 * IV fluids * orthostatics * EKG did not show any ST,T wave changes * fall precautions * cardiology causes were ruled out on recent visit * Fall precautions * Consider Tilt table test at some point as outpatient # ALEJANDRO likely pre renal due to volume depletion , diarrhea , resolved * BUN/CR 15/1.1.....13/0.9 ....12/1.0 * IV fluids * Monitor BUN/Cr * # DM, uncontrolled * Hyperglycemic on admission with glu 315 without DKA * Hold oral agents victoza * ISS 10 units TID * ISS ACHS * continue levemir 50 Q AM , add 30 units at bed time # H/O Seizure on Topramax 150 BID , consider adding Vimpat # HTN , controlled * Resume home meds : losartan 25 mg po daily # HLD * continue lipitor 20 mg po daily # hypothyroidism , * continue Synthroid 50 mcg daily # H/O sleep apnea with no CPAP At home, start CPAP while in hospital #FEN * F: NS 2L boluses in ED , maintenance NS @ 100 cc/hr * E: monitor and replenished as needed * N: diabetic low sodium diet # Proph * DVT: moderate risk , SCS both legs , Hep 5000 SQ Q8hr * GI: No need for now # Dispo * Admit to tele * pending glucose control and holter monitor Visit type - Emergency Visit Emergency Visit: Yes ED Registration Date: 09/09/17 Care time: The patient presented to the Emergency Department on the above date and was hospitalized for further evaluation of their emergent condition. - New Patient This patient is new to me today: No - Critical Care Critical Care patient: No
[2017-09-12] MEDS: TIOTROPIUM BROMIDE 18 MCG/INH (DEVICE W/ 5 CAPSULES) IH SCH (13:49)
--- NOTE | 2017-09-12 16:40 | EKG ---
Test Reason : Blood Pressure : / mmHG Vent. Rate : 089 BPM Atrial Rate : 089 BPM P-R Int : 152 ms QRS Dur : 088 ms QT Int : 404 ms P-R-T Axes : 047 -34 030 degrees QTc Int : 491 ms NORMAL SINUS RHYTHM LEFT AXIS DEVIATION MINIMAL VOLTAGE CRITERIA FOR LVH, MAY BE NORMAL VARIANT PROLONGED QT ABNORMAL ECG WHEN COMPARED WITH ECG OF 10-SEP-2017 12:03, NO SIGNIFICANT CHANGE WAS FOUND Confirmed by MD Janessa, Tucker ([id number]) on 09/12/2017 4:39:50 PM Referred By: Confirmed By:Tucker Riddle MD
[2017-09-12] MEDS: INSULIN (NOVOLOG) ASPART 100 UNITS/ML 10ML VIAL SQ SCH (17:19)
[2017-09-12 17:37] LABS: ANION GAP 10 (8-16); BLOOD UREA NITROGEN 14 mg/dL (7-18); CALCIUM 8.3 mg/dL (8.5-10.1); CHLORIDE 105 mmol/L (98-107); CO2 20 mmol/L (21-32); SODIUM 135 mmol/L (136-145)
[2017-09-12 17:44] LABS: GLUCOSE,RANDOM 308 mg/dL (74-106)
--- NOTE | 2017-09-12 18:12 | PN ---
Teaching Attending Note Name of Resident: Vicente Cardoza ATTENDING PHYSICIAN STATEMENT I saw and evaluated the patient. I reviewed the resident's note and discussed the case with the resident. I agree with the resident's findings and plan as documented. SUBJECTIVE: No fever or chills. No abd pain. breathing improved but still not feeling well OBJECTIVE: NAD, pleasant obese female CV: RRR, no MRG, no JVD Lungs: CTAB Ext: no edema ASSESSMENT AND PLAN: 52 y/o lady with h/o recurrent syncopes, possible recurrent seizures, CVA , HTN , Bipolar , IDDM, , hypothyroidism and other medical problems who presented with syncope x 2 and SOB with malaise 1- SOB: Possible flu : - cont tamiflu day 3 - Albuterol Nebs - cont inhalers - PFTs as out pt . has Sleep apnea but does not use CPAP. - CPAP at night 2- Syncope :was w/u in past. can't r/o eizure activity - cont topiramate - No need to repeat EEG as inpt - appreciate neuro help. out pt prolonged EEG - episodes of artifact vs VT on tele. holter ordered . d/w Dr. Werner 3- DM : uncontrolled sugar. - cont levemir 50 am.increase HS levemir to 30 - SSI - add prandial of 10 units 4- h/o CVA : cont ASA - cont lipitor 5- Hematuria resolved. endometrial thickening. 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 6- cont Heparin SQ . dc is pending sugar control
[2017-09-12] MEDS ORDERED: INSULIN (NOVOLOG) ASPART 100 UNITS/ML 10ML VIAL ONE ×2 (21:33→21:34)
[2017-09-12] MEDS: ATORVASTATIN CA 20 MG TABLET (FP) PO SCH (21:34)
[2017-09-12] MEDS ORDERED: ACETAMINOPHEN 325 MG TABLET (FP) PO PRN (23:59)
[2017-09-13] MEDS ORDERED: oxyCODONE HCL 5 MG TABLET PO ONE (01:31)
--- NOTE | 2017-09-13 05:01 | RAPID ---
Rapid Response - Rapid Response Assessment: Rapid response called as pt was witnessed by nurse to fall after coming out of bathroom and had LOC for approximately 5 seconds. Pt was walking back to bed when she suddenly slumped forward, fell, hit head, and had LOC according to nurse. Upon arrival pt was awake and stated she felt dizzy. She says she stood up after using the bathroom was returning to her bed when she felt a funny feeling in her chest/heart and the next thing she remembers is waking up on the floor with nurse next to her. She continued to have dizziness upon regaining consciousness which improved slowly. Currently she denies any pain in her body and only has some mild dizziness. No other complaints noted at this time. BGM at time of rapid response noted to be 371. Tele monitor shows vtach in only 1 lead whereas other leads do not show vtach and show baseline rhythm with no change. VITALS: 107/44, 93 bpm, 20 RR, 98% RA PE: Gen: AAOx3 Head: NC/AT Eyes: PERRLA, EOMI C/V: S1, S2, RRR Resp: CTA b/l Abd: Soft, obese, NT, normoactive BS Neuro: Light touch intact on face, b/l UE, b/l LE. Uvula midline. No facial droop noted. No slurred speech. A/P: LOC w/fall and head trauma -Fall protocol 1 -EKG, Head CT -Pt currently improved -Monitor electrolytes
--- NOTE | 2017-09-13 05:42 | PN ---
Physical Exam: SUBJECTIVE: Patient seen and examined at bedtime. she had a fall at night while she was using the bath room, she felt heart racing. head CT scan came back negative. She denies any fever, chills, N/V/D/C. denies any chest pain or sob. pending holter monitor reading. OBJECTIVE: Vital Signs Period Temp Pulse Resp BP Sys/Giron Pulse Ox Last 24 Hr 98.0 F-98.8 F 89-110 17-18 108-152/65-85 98-98 GENERAL: AAOx3 in NAD HEAD: NC/AT EYES: EOMI, Conjunctiva clear, sclera anicteric ENT: dry mucous membrane NECK: Supple, no JVD LUNGS: CTAB/L , no wheezes HEART: RRR, NSR, normal s1, s2, soft murmur , no M/R/G ABDOMEN: Obese,Soft, ND, NT, +BS 4 Q, no CVA Tenderness LOWER EXTREMITIES: no edema, +2 pulse, B/L scar medial side. NEUROLOGICAL: no focal deficit . Normal speech. gait not observed. PSYCHIATRIC: Cooperative. Good eye contact. Appropriate mood and affect. SKIN: Warm, dry, Laboratory Results - last 24 hr 09/11/17 09/11/17 09/12/17 12:49 18:31 05:35 WBC 7.3 RBC 4.36 Hgb 10.8 Hct 33.4 MCV 76.7 L MCH 24.9 L MCHC 32.4 RDW 15.3 Plt Count 179 MPV 9.7 Sodium Potassium Chloride Carbon Dioxide Anion Gap BUN Creatinine Creat Clearance w eGFR POC Glucometer > 400 > 400 Random Glucose Calcium Phosphorus Magnesium Total Bilirubin AST ALT Alkaline Phosphatase Troponin I Total Protein Albumin TSH Urine Color Urine Appearance Urine pH Ur Specific [place] Urine Protein Urine Glucose (UA) Urine Ketones Urine Blood Urine Nitrite Urine Bilirubin Urine Urobilinogen Ur Leukocyte Esterase Urine WBC (Auto) Urine RBC (Auto) Ur Epithelial Cells 09/12/17 09/12/17 09/12/17 05:35 05:35 05:35 WBC RBC Hgb Hct MCV MCH MCHC RDW Plt Count MPV Sodium 133 L Potassium 4.0 Chloride 102 Carbon Dioxide 23 Anion Gap 8 BUN 13 Creatinine 1.0 Creat Clearance w eGFR 58.69 POC Glucometer Random Glucose 462 H* Calcium 8.6 Phosphorus 2.7 Magnesium 1.7 L Total Bilirubin 0.2 D AST 12 L ALT 19 Alkaline Phosphatase 77 Troponin I < 0.02 Total Protein 7.1 Albumin 3.2 L TSH Urine Color Urine Appearance Urine pH Ur Specific [place] Urine Protein Urine Glucose (UA) Urine Ketones Urine Blood Urine Nitrite Urine Bilirubin Urine Urobilinogen Ur Leukocyte Esterase Urine WBC (Auto) Urine RBC (Auto) Ur Epithelial Cells 09/12/17 09/12/17 09/12/17 06:10 07:43 08:14 WBC RBC Hgb Hct MCV MCH MCHC RDW Plt Count MPV Sodium 137 Potassium 4.1 Chloride 107 Carbon Dioxide 21 Anion Gap 9 BUN 12 Creatinine 1.0 Creat Clearance w eGFR POC Glucometer 455 374 Random Glucose 362 H* Calcium 8.0 L Phosphorus Magnesium Total Bilirubin AST ALT Alkaline Phosphatase Troponin I Total Protein Albumin TSH Urine Color Urine Appearance Urine pH Ur Specific [place] Urine Protein Urine Glucose (UA) Urine Ketones Urine Blood Urine Nitrite Urine Bilirubin Urine Urobilinogen Ur Leukocyte Esterase Urine WBC (Auto) Urine RBC (Auto) Ur Epithelial Cells 09/12/17 09/12/17 09/12/17 10:25 11:47 11:50 WBC RBC Hgb Hct MCV MCH MCHC RDW Plt Count MPV Sodium 134 L Potassium 3.9 Chloride 103 Carbon Dioxide 22 Anion Gap 9 BUN 12 Creatinine 1.0 Creat Clearance w eGFR POC Glucometer 382 Random Glucose 361 H* Calcium 8.3 L Phosphorus Magnesium Total Bilirubin AST ALT Alkaline Phosphatase Troponin I Total Protein Albumin TSH Urine Color Colorless Urine Appearance Clear Urine pH 8.0 D Ur Specific [place] 1.009 Urine Protein Negative Urine Glucose (UA) 3+ H Urine Ketones Negative Urine Blood 1+ H Urine Nitrite Negative Urine Bilirubin Negative Urine Urobilinogen Negative Ur Leukocyte Esterase Negative Urine WBC (Auto) <1 Urine RBC (Auto) None Ur Epithelial Cells Rare 09/12/17 09/12/17 09/12/17 12:30 16:30 17:16 WBC RBC Hgb Hct MCV MCH MCHC RDW Plt Count MPV Sodium 135 L Potassium 4.0 Chloride 105 Carbon Dioxide 20 L Anion Gap 10 BUN 14 Creatinine 1.0 Creat Clearance w eGFR POC Glucometer 344 Random Glucose 308 H* Calcium 8.3 L Phosphorus Magnesium Total Bilirubin AST ALT Alkaline Phosphatase Troponin I Total Protein Albumin TSH 3.18 Urine Color Urine Appearance Urine pH Ur Specific [place] Urine Protein Urine Glucose (UA) Urine Ketones Urine Blood Urine Nitrite Urine Bilirubin Urine Urobilinogen Ur Leukocyte Esterase Urine WBC (Auto) Urine RBC (Auto) Ur Epithelial Cells 09/12/17 09/13/17 21:32 04:52 WBC RBC Hgb Hct MCV MCH MCHC RDW Plt Count MPV Sodium Potassium Chloride Carbon Dioxide Anion Gap BUN Creatinine Creat Clearance w eGFR POC Glucometer 368 371 Random Glucose Calcium Phosphorus Magnesium Total Bilirubin AST ALT Alkaline Phosphatase Troponin I Total Protein Albumin TSH Urine Color Urine Appearance Urine pH Ur Specific [place] Urine Protein Urine Glucose (UA) Urine Ketones Urine Blood Urine Nitrite Urine Bilirubin Urine Urobilinogen Ur Leukocyte Esterase Urine WBC (Auto) Urine RBC (Auto) Ur Epithelial Cells Active Medications Generic Name Dose Route Start Last Admin Trade Name Freq PRN Reason Stop Dose Admin Acetaminophen 650 mg 09/12/17 23:59 09/13/17 00:19 Tylenol - PO 650 mg Q6H PRN Administration PAIN Albuterol Sulfate 1 amp 09/10/17 12:00 09/12/17 20:39 Ventolin 0.5% - NEB 1 amp RQID SHAUN Administration Albuterol Sulfate 1 puff 09/10/17 10:32 09/11/17 04:31 Ventolin Hfa Inhaler - IH 1 puff QID PRN Administration SHORTNESS OF BREATH Aspirin 81 mg 09/10/17 10:00 09/12/17 10:34 Asa - PO 81 mg DAILY SHAUN Administration Atorvastatin Calcium 20 mg 09/10/17 22:00 09/12/17 21:34 Lipitor - PO 20 mg HS SHAUN Administration Fluoxetine HCl 40 mg 09/10/17 10:00 09/12/17 10:34 Prozac - PO 40 mg DAILY SHAUN Administration Gabapentin 900 mg 09/10/17 22:00 09/12/17 21:35 Neurontin - PO 900 mg HS SHAUN Administration Gabapentin 600 mg 09/13/17 10:00 Neurontin - PO DAILY SHAUN Heparin Sodium (Porcine) 5,000 unit 09/09/17 22:00 09/12/17 21:35 Heparin - SQ 5,000 unit TID SHAUN Administration Sodium Chloride 1,000 mls @ 100 mls/hr 09/09/17 22:00 09/12/17 21:35 Normal Saline - IV Not Given ASDIR SHAUN Insulin Aspart 1 vial 09/12/17 07:00 09/12/17 17:19 Novolog Vial Sliding Scale - SQ 8 units TIDAC SHAUN Administration Protocol Insulin Aspart 10 units 09/12/17 16:30 09/12/17 17:19 Novolog Vial SQ 10 units TIDAC SHAUN Administration Protocol Insulin Detemir 50 units 09/10/17 07:00 09/12/17 06:16 Levemir Vial SQ 50 units AM SHAUN Administration Insulin Detemir 30 units 09/12/17 22:00 09/12/17 21:35 Levemir Vial SQ 30 units HS SHAUN Administration Levothyroxine Sodium 50 mcg 09/10/17 07:00 09/12/17 06:16 Synthroid - PO 50 mcg DAILY@0700 SHAUN Administration Losartan Potassium 25 mg 09/12/17 10:00 09/12/17 10:33 Cozaar - PO 25 mg DAILY SHAUN Administration Meclizine HCl 12.5 mg 09/09/17 22:01 09/12/17 10:36 Antivert - PO 12.5 mg Q6H PRN Administration VERTIGO [id number] Ethyl Esters 1 gm 09/10/17 10:00 09/12/17 21:34 Lovaza - PO 1 gm BID SHAUN Administration Oseltamivir Phosphate 75 mg 09/09/17 22:00 09/12/17 21:34 Tamiflu - PO 09/14/17 21:59 75 mg BID SHAUN Administration Tiotropium [place] 1 puff 09/10/17 10:00 09/12/17 13:49 Spiriva - IH 1 inh DAILY SHAUN Administration Topiramate 150 mg 09/10/17 10:00 09/12/17 21:34 Topamax - PO 150 mg BID SHAUN Administration CBC, BMP 09/13/17 05:30 09/13/17 05:30 ASSESSMENT/PLAN: 52 year old female with PMH of HTN, HLD,Hypothyroidism and syncope presented to ED with one day H/O chest pain pressure like non radiating admitted to R/O PE and ACS ,and due to uncontrolled Blood sugar. # Med sternal chest pain PE ruled out , likely plueritic chest pain due to viral bronchitis vs common cold unlikely ACS , improved * Pain local 5/10 non radiating increased with inspiration associated with dry cough, chills , resolved * CXR negative for acute process * Influenza A,B rapid not available * isolation precaution droplet * EKG with No S, ST wave changes * CTA negative for PE * O2 as needed to keep o2 sat > 90 * duo-neb * spiriva * start Tamiflue 75 mg po BID day 4 # NSVT on monitor last night likely artifact * Supervisor [employer] Consulted , will put her on holter monitor to R/L arrhythmia * TSH 3.4 * 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 #loc 2/2 Syncope likely 2/2 dehydration due to polyuria and diarrhea , vs seizure vs arrhythmia * passed out twice yesterday,and 2 days , felt room spinning , unwitnessed * denies hitting her head , reports headache 01/07 * IV fluids * orthostatics * EKG did not show any ST,T wave changes * fall precautions * cardiology causes were ruled out on recent visit * Fall precautions # ALEJANDRO likely pre renal due to volume depletion , diarrhea, resolved * BUN/CR 15/1.1.....13/0.9 ....12/1.0...15/1.0 * IV fluids * Monitor BUN/Cr # DM, uncontrolled * Hyperglycemic on admission with glu 315 without DKA * Hold oral agents victoza * ISS adjusted protocol units TID before meals * ISS ACHS * continue levemir 50 Q AM , # H/O Seizure on Topramax 150 BID , consider adding Vimpat * F/U as out pt with neurologist # HTN , controlled * Resume home meds : losartan 25 mg po daily # HLD * continue lipitor 20 mg po daily # hypothyroidism , * continue Synthroid 50 mcg daily # H/O sleep apnea with no CPAP At home, start CPAP while in hospital #FEN * F: on no standing fluids * E: monitor and replenished as needed * N: diabetic low sodium diet # Proph * DVT: moderate risk , SCS both legs , Hep 5000 SQ Q8hr * GI: No need for now # Dispo * Admit to tele * pending glucose control and holter monitor reading to confirm NSVT Visit type - Emergency Visit Emergency Visit: Yes ED Registration Date: 09/12/17 Care time: The patient presented to the Emergency Department on the above date and was hospitalized for further evaluation of their emergent condition. - New Patient This patient is new to me today: No - Critical Care Critical Care patient: No - Discharge Referral Referred to [facility] No
[2017-09-13] MEDS: INSULIN (NOVOLOG) ASPART 100 UNITS/ML 10ML VIAL SQ SCH ×2 (06:35→17:08)
[2017-09-13] MEDS: INSULIN SLIDING SCALE (NOVOLOG) 1 VIAL SQ SCH ×3 (06:35→16:57)
[2017-09-13] MEDS: HEPARIN NA (PORCINE) 5,000 UNITS/ML 1ML VIAL SQ SCH ×3 (06:35→22:54)
[2017-09-13] MEDS: INSULIN DETEMIR 100 UNITS/ML MDV SQ SCH ×2 (06:36→22:54)
[2017-09-13] MEDS: LEVOTHYROXINE NA 50 MCG TABLET (FP) PO SCH (06:36)
[2017-09-13 07:16] LABS: BASO % 0.5 % (0-2.0); EOS % 5.4 % (0-4.5); HEMATOCRIT 34.8 % (32.4-45.2); HEMOGLOBIN 11.1 GM/dL (10.7-15.3); LYMPH % 29.5 % (8-40); MCH 24.5 pg (25.7-33.7); MCHC 31.9 g/dl (32.0-36.0); MEAN CELL VOLUME 76.9 fl (80-96); MEAN PLT VOLUME 9.5 fl (7.5-11.1); MONO % 7.9 % (3.8-10.2); NEUT % 56.7 % (42.8-82.8); PLATELET COUNT 200 K/MM3 (134-434); RBC 4.53 M/mm3 (3.60-5.2); WHITE BLOOD COUNT 8.8 K/mm3 (4.0-10.0)
[2017-09-13 07:41] LABS: CHLORIDE 105 mmol/L (98-107); POTASSIUM 4.3 mmol/L (3.5-5.1); SODIUM 135 mmol/L (136-145)
--- NOTE | 2017-09-13 07:55 | PN ---
Teaching Attending Note Name of Resident: Vicente Cardoza ATTENDING PHYSICIAN STATEMENT I saw and evaluated the patient. I reviewed the resident's note and discussed the case with the resident. I agree with the resident's findings and plan as documented. SUBJECTIVE: Patient is feeling better, with no acute distress. OBJECTIVE: Vital Signs Temperature 97.6 F 09/13/17 06:00 Pulse Rate 90 09/13/17 06:00 Respiratory Rate 20 09/13/17 06:00 Blood Pressure 117/66 09/13/17 06:00 O2 Sat by Pulse Oximetry (%) 98 09/12/17 21:00 CBCD WBC 8.8 K/mm3 (4.0-10.0) 09/13/17 05:30 RBC 4.53 M/mm3 (3.60-5.2) 09/13/17 05:30 Hgb 11.1 GM/dL (10.7-15.3) 09/13/17 05:30 Hct 34.8 % (32.4-45.2) 09/13/17 05:30 MCV 76.9 fl (80-96) L 09/13/17 05:30 MCHC 31.9 g/dl (32.0-36.0) L 09/13/17 05:30 RDW 15.0 % (11.6-15.6) 09/13/17 05:30 Plt Count 200 K/MM3 (134-434) 09/13/17 05:30 MPV 9.5 fl (7.5-11.1) 09/13/17 05:30 CMP Sodium 135 mmol/L (136-145) L 09/12/17 16:30 Potassium 4.0 mmol/L (3.5-5.1) 09/12/17 16:30 Chloride 105 mmol/L (98-107) 09/12/17 16:30 Carbon Dioxide 20 mmol/L (21-32) L 09/12/17 16:30 Anion Gap 10 (8-16) 09/12/17 16:30 BUN 14 mg/dL (7-18) 09/12/17 16:30 Creatinine 1.0 mg/dL (0.55-1.02) 09/12/17 16:30 Creat Clearance w eGFR 58.69 (>60) 09/12/17 05:35 Random Glucose 308 mg/dL (74-106) H* 09/12/17 16:30 Calcium 8.3 mg/dL (8.5-10.1) L 09/12/17 16:30 Total Bilirubin 0.2 mg/dL (0.2-1.0) D 09/12/17 05:35 AST 12 U/L (15-37) L 09/12/17 05:35 ALT 19 U/L (12-78) 09/12/17 05:35 Alkaline Phosphatase 77 U/L (45-117) 09/12/17 05:35 Total Protein 7.1 g/dl (6.4-8.2) 09/12/17 05:35 Albumin 3.2 g/dl (3.4-5.0) L 09/12/17 05:35 CARDIAC ENZYMES Creatine Kinase 48 IU/L (26-192) 09/09/17 18:56 Troponin I < 0.02 ng/ml (0.00-0.05) 09/12/17 05:35 Current Medications Generic Name Dose Route Start Last Admin Trade Name Freq PRN Reason Stop Dose Admin Acetaminophen 650 mg 09/12/17 23:59 09/13/17 00:19 Tylenol - PO 650 mg Q6H PRN Administration PAIN Albuterol Sulfate 1 amp 09/10/17 12:00 09/12/17 20:39 Ventolin 0.5% - NEB 1 amp RQID SHAUN Administration Albuterol Sulfate 1 puff 09/10/17 10:32 09/11/17 04:31 Ventolin Hfa Inhaler - IH 1 puff QID PRN Administration SHORTNESS OF BREATH Aspirin 81 mg 09/10/17 10:00 09/12/17 10:34 Asa - PO 81 mg DAILY SHAUN Administration Atorvastatin Calcium 20 mg 09/10/17 22:00 09/12/17 21:34 Lipitor - PO 20 mg HS SHAUN Administration Fluoxetine HCl 40 mg 09/10/17 10:00 09/12/17 10:34 Prozac - PO 40 mg DAILY SHAUN Administration Gabapentin 900 mg 09/10/17 22:00 09/12/17 21:35 Neurontin - PO 900 mg HS SHAUN Administration Gabapentin 600 mg 09/13/17 10:00 Neurontin - PO DAILY [facility] Heparin Sodium (Porcine) 5,000 unit 09/09/17 22:00 09/13/17 06:35 Heparin - SQ 5,000 unit TID SHAUN Administration Sodium Chloride 1,000 mls @ 100 mls/hr 09/09/17 22:00 09/12/17 21:35 Normal Saline - IV Not Given ASDIR [facility] Insulin Aspart 1 vial 09/12/17 07:00 09/13/17 06:35 Novolog Vial Sliding Scale - SQ 10 units TIDAC SHAUN Administration Protocol Insulin Aspart 10 units 09/12/17 16:30 09/13/17 06:35 Novolog Vial SQ 10 units TIDAC [facility] Administration Protocol Insulin Detemir 50 units 09/10/17 07:00 09/13/17 06:36 Levemir Vial SQ 50 units AM SHAUN Administration Insulin Detemir 30 units 09/12/17 22:00 09/12/17 21:35 Levemir Vial SQ 30 units HS SHAUN Administration Levothyroxine Sodium 50 mcg 09/10/17 07:00 09/13/17 06:36 Synthroid - PO 50 mcg DAILY@0700 SHAUN Administration Losartan Potassium 25 mg 09/12/17 10:00 09/12/17 10:33 Cozaar - PO 25 mg DAILY SHAUN Administration Meclizine HCl 12.5 mg 09/09/17 22:01 09/12/17 10:36 Antivert - PO 12.5 mg Q6H PRN Administration VERTIGO Ybreh-8-Vpod Ethyl Esters 1 gm 09/10/17 10:00 09/12/17 21:34 Lovaza - PO 1 gm BID SHAUN Administration Oseltamivir Phosphate 75 mg 09/09/17 22:00 09/12/17 21:34 Tamiflu - PO 09/14/17 21:59 75 mg BID SHAUN Administration Tiotropium [place] 1 puff 09/10/17 10:00 09/12/17 13:49 Spiriva - IH 1 inh DAILY SHAUN Administration Topiramate 150 mg 09/10/17 10:00 09/12/17 21:34 Topamax - PO 150 mg BID SHAUN Administration Home Medications Medication Instructions Recorded Fluoxetine HCl [Prozac -] 40 mg PO DAILY 09/15/14 Gabapentin [Neurontin -] 600 mg PO QID 09/15/14 [place]-3 Fatty Acids [[place]-3] 1,000 mg PO BID 09/15/14 Albuterol Sulfate Inhaler - 1 - 2 inh PO QID 03/15/16 [Ventolin HFA Inhaler -] Insulin Glargine,Hum.rec.anlog 50 units SQ AM 03/15/17 [Lantus Solostar PEN -] Liraglutide [Victoza -] 1.8 mg SQ DAILY@1200 03/15/17 clonazePAM [Klonopin -] 0.5 mg PO BID PRN 05/12/17 Meclizine HCl [Antivert -] 12.5 mg PO Q6H PRN #20 tablet 06/27/17 Aspirin 81 mg PO DAILY 08/15/17 Ergocalciferol (Vitamin D2) 50,000 units PO WEEKLY 08/15/17 [Vitamin D2] Levothyroxine [Synthroid -] 50 mcg PO DAILY 08/15/17 Topiramate [Topamax] 150 mg PO BID 30 Days #60 tablet 08/15/17 Hydrocodone/Acetaminophen 1 each PO BID PRN #60 tablet MDD 2 08/21/17 [Hydrocodone-Acetamin 10-325 mg] Atorvastatin Ca [Lipitor] 20 mg PO HS 09/09/17 Insulin (LOG) Aspart [NovoLOG -] 15 units SQ TID 09/09/17 Tiotropium [place] [Spiriva] 1 inh PO DAILY 09/09/17 Atorvastatin Ca [Lipitor] 20 mg PO HS 09/10/17 Insulin (Levemir) [Levemir Vial] 15 units SQ HS #10 ml 09/11/17 Loratadine [Claritin] 10 mg PO DAILY 09/11/17 Oseltamivir Phosphate [Tamiflu -] 75 mg PO BID #9 capsule 09/11/17 PE: per resident's note 09/09/17 11:50 Urine - Urine Clean Catch Urine Culture - Final NO GROWTH OBTAINED ASSESSMENT AND PLAN: Patient is a 52 y/o lady with h/o recurrent syncopes, possible recurrent seizures, CVA , HTN, Bipolar , IDDM, , hypothyroidism and other medical problems who presented with syncope x 2 and SOB with malaise # Acute SOB with possible due to flu : On Tamiflu continue x 2 more days, Albuterol Nebs, inhaler continue, PFTs as out pt . has Sleep apnea but does not use CPAP. CPAP at night continue. # Syncope :was w/u in past. can't r/o seizure activity on Topomax continue, EEG as an outpatient.follow with neurologist upon discharge Ordered holter monitor as per # DM : uncontrolled sugar. cont levemir 50 am.increase HS levemir to 30 , SSI , 10 units prandial daily , Endocrine consult # Hx of CVA : cont ASA, lipitor # Hematuria resolved. Endometrial thickening. 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 dc is pending sugar control
[2017-09-13 07:56] LABS: ALBUMIN 3.4 g/dl (3.4-5.0); ALK PHOS 83 U/L (45-117); ANION GAP 10 (8-16); BILIRUBIN,TOTAL 0.3 mg/dL (0.2-1.0); BLOOD UREA NITROGEN 15 mg/dL (7-18); CO2 20 mmol/L (21-32); MAGNESIUM 1.9 mg/dL (1.8-2.4); PHOSPHOROUS 3.6 mg/dL (2.5-4.9); SGOT/AST 15 U/L (15-37); SGPT/ALT 19 U/L (12-78); TOT PROT 7.7 g/dl (6.4-8.2)
[2017-09-13] MEDS: ALBUTEROL SO4 0.5 % INH SOLN 2.5 MG/0.5 ML VIAL.NEB. NEB SCH ×4 (08:00→20:38)
[2017-09-13 08:22] LABS: GLUCOSE,RANDOM 376 mg/dL (74-106)
[2017-09-13] MEDS ORDERED: INSULIN (NOVOLOG) ASPART 100 UNITS/ML 10ML VIAL SQ SCH (09:31)
[2017-09-13] MEDS ORDERED: INSULIN DETEMIR 100 UNITS/ML MDV SQ ONE (09:42)
[2017-09-13] MEDS ORDERED: PT OWN MED DRAWER 7, Y5N ONE ×2 (09:43→22:51)
[2017-09-13] MEDS: OSELTAMIVIR PHOSPHATE 75 MG CAPSULE PO SCH ×2 (10:33→22:57)
[2017-09-13] MEDS: ASPIRIN 81 MG CHEWABLE TABLETS PO SCH (10:33)
[2017-09-13] MEDS: TOPIRAMATE 100 MG TABLET PO SCH ×2 (10:33→22:58)
[2017-09-13] MEDS: FLUoxetine HCL 20 MG CAPSULE (FP) PO SCH (10:33)
[2017-09-13] MEDS: LOSARTAN POTASSIUM 25 MG TABLET PO SCH (10:33)
[2017-09-13] MEDS: OMEGA-3 ACID ETHYL ESTERS (FATTY-ACIDS) 1 GM CAPSULE (FP) PO SCH ×2 (10:34→22:57)
[2017-09-13] MEDS: GABAPENTIN 300 MG CAPSULE (FP) PO SCH ×2 (10:35→22:56)
[2017-09-13] MEDS: TIOTROPIUM BROMIDE 18 MCG/INH (DEVICE W/ 5 CAPSULES) IH SCH (10:37)
--- NOTE | 2017-09-13 11:23 | PN ---
Progress Note, Physician History of Present Illness: Patient reported palpitations and recurrent syncope, innovation manager shows possible NSVT vs artifact, holter placed. - Current Medication List Current Medications: Active Medications Acetaminophen (Tylenol -) 650 mg PO Q6H PRN PRN Reason: PAIN Last Admin: 09/13/17 00:19 Dose: 650 mg Albuterol Sulfate (Ventolin 0.5% -) 1 amp NEB RQID [facility] Last Admin: 09/13/17 08:00 Dose: 1 amp Albuterol Sulfate (Ventolin Hfa Inhaler -) 1 puff IH QID PRN PRN Reason: SHORTNESS OF BREATH Last Admin: 09/11/17 04:31 Dose: 1 puff Aspirin (Asa -) 81 mg PO DAILY [facility] Last Admin: 09/13/17 10:33 Dose: 81 mg Atorvastatin Calcium (Lipitor -) 20 mg PO HS [facility] Last Admin: 09/12/17 21:34 Dose: 20 mg Fluoxetine HCl (Prozac -) 40 mg PO DAILY [facility] Last Admin: 09/13/17 10:33 Dose: 40 mg Gabapentin (Neurontin -) 900 mg PO HS [facility] Last Admin: 09/12/17 21:35 Dose: 900 mg Gabapentin (Neurontin -) 600 mg PO DAILY [facility] Last Admin: 09/13/17 10:35 Dose: 600 mg Heparin Sodium (Porcine) (Heparin -) 5,000 unit SQ TID [facility] Last Admin: 09/13/17 06:35 Dose: 5,000 unit Sodium Chloride (Normal Saline -) 1,000 mls @ 100 mls/hr IV ASDIR [facility] Last Admin: 09/12/17 21:35 Dose: Not Given Insulin Aspart (Novolog Vial Sliding Scale -) 1 vial SQ TIDAC [facility] PRN Reason: Protocol Last Admin: 09/13/17 06:35 Dose: 10 units Insulin Aspart (Novolog Vial) 15 units SQ TIDAC [facility] PRN Reason: Protocol Insulin Detemir (Levemir Vial) 50 units SQ AM [facility] Last Admin: 09/13/17 06:36 Dose: 50 units Insulin Detemir (Levemir Vial) 30 units SQ HS [facility] Last Admin: 09/12/17 21:35 Dose: 30 units Levothyroxine Sodium (Synthroid -) 50 mcg PO DAILY@0700 [facility] Last Admin: 09/13/17 06:36 Dose: 50 mcg Losartan Potassium (Cozaar -) 25 mg PO DAILY [facility] Last Admin: 09/13/17 10:33 Dose: 25 mg Meclizine HCl (Antivert -) 12.5 mg PO Q6H PRN PRN Reason: VERTIGO Last Admin: 09/12/17 10:36 Dose: 12.5 mg Myfll-8-Fxoq Ethyl Esters (Lovaza -) 1 gm PO BID [facility] Last Admin: 09/13/17 10:34 Dose: 1 gm Oseltamivir Phosphate (Tamiflu -) 75 mg PO BID [facility] Stop: 09/14/17 21:59 Last Admin: 09/13/17 10:33 Dose: 75 mg Tiotropium [place] (Spiriva -) 1 puff IH DAILY [facility] Last Admin: 09/13/17 10:37 Dose: 1 puff Topiramate (Topamax -) 150 mg PO BID [facility] Last Admin: 09/13/17 10:33 Dose: 150 mg - Objective Vital Signs: Vital Signs Temperature 97.7 F 09/13/17 07:02 Pulse Rate 82 09/13/17 07:02 Respiratory Rate 20 09/13/17 07:02 Blood Pressure 116/69 09/13/17 07:02 O2 Sat by Pulse Oximetry (%) 99 09/13/17 09:05 Constitutional: Yes: No Distress, Calm Neck: Yes: Supple Cardiovascular: Yes: Regular Rate and Rhythm Respiratory: Yes: Regular, Diminished, On Nasal O2 Gastrointestinal: Yes: Normal Bowel Sounds, Soft, Abdomen, Obese Edema: No Labs: CBC, BMP 09/13/17 05:30 09/13/17 05:30 INR, PTT INR 0.94 (0.82-1.09) 09/09/17 18:56 - ....Imaging EKG: Report Reviewed (Tele: NSVT) Problem List - Problems (1) Dizziness Code(s): R42 - DIZZINESS AND GIDDINESS (2) Shortness of breath Code(s): R06.02 - SHORTNESS OF BREATH (3) Weakness Code(s): R53.1 - WEAKNESS (4) Anxiety Code(s): F41.9 - ANXIETY DISORDER, UNSPECIFIED (5) DVT prophylaxis Code(s): UUX8732 - (6) Diabetes mellitus, insulin dependent (IDDM), uncontrolled Code(s): E10.65 - TYPE 1 DIABETES MELLITUS WITH HYPERGLYCEMIA Qualifiers: Diabetes mellitus complication status: without complication Qualified Code( s): E10.65 - Type 1 diabetes mellitus with hyperglycemia (7) MARILU (obstructive sleep apnea) Code(s): G47.33 - OBSTRUCTIVE SLEEP APNEA (ADULT) (PEDIATRIC) (8) Syncope Code(s): R55 - SYNCOPE AND COLLAPSE Qualifiers: Syncope type: unspecified Qualified Code(s): R55 - Syncope and collapse Assessment/Plan 06/23/2017 EchoL Normal LV size and fxn, mild MR, TR 1. SOB , malaise , body aches - etiology to be determined and palpitations, rule out arrhythmia 2. Recurrent syncope, post-tussive/situational vs seizure disorder 3. Hypertension 4. Hypercholesterolemia 5. Diabetes mellitus - Insulin requiring 6. Morbid obesity with probable obstructive sleep apnea 7. Anxiety disorder (severe) 8. Hypothyroidism 9. Atypical chest pain - pleuritic ruled out for PE 10. Probable bronchial asthma PLAN: 1. Tamiflu, bronchodilator, O2 as needed and DVT prophylaxis - currently in contact isolation 2. Continue current medical therapy including Lipitor 20 qhs, Lovaza 1 bid and ASA 81 qd. Continue Losartan 25 qd as tolerated 3. Anxiety management 4. Obstructive sleep apnea needs to be addressed and possible CPAP if clinically indicated 5. Consider Tilt table test at some point as outpatient 6. Transthoracic echocardiography was reviewed - normal LV systolic function 7. Artifact vs NSVT on the innovation manager - f/u Holter to confirm NSVT G
--- NOTE | 2017-09-13 17:22 | HOL ---
Hook-up date: 2017-09-12 13:01:00 Duration: 23:57:00 Test Indications: R/O ATRIAL ARRHYTHMIA, PALPS Medications: [id number] QRS complexes 5 Ventricular ectopics which represent <1 % of total QRS comp. 4 Supraventricular ectopics which represent <1 % of total QRS comp. * Paced QRS complexs which represent % of total QRS comp. * % of Time Classified as Noise VENTRICULAR ECTOPY 5 Isolated 0 Bigeminal Cycles 0 Couplets 0 Runs 0 Beats in Runs * Beats LONGEST at * BPM at :: -- * Beats FASTEST at * BPM at :: -- SUPRAVENTRICULAR ECTOPY 2 Isolated 1 Couplets 0 Runs 0 Beats in Runs * Beats LONGEST at * BPM at :: -- * Beats FASTEST at * BPM at :: -- HEART RATES 76 MIN at 04:07:53 2017-09-13 94 AVG 126 MAX at 14:03:48 2017-09-12 LONGEST RR 0.864 secs at 06:41:51 2017-09-13 SCANNED BY: ONELIA 09/13/17 Normal sinus rhythm 5 isolated vpcs 2 isolated apcs one supraventricular couplet Confirmed by ARNALDO MENDOZA, ANA LUISA ([id number]) on 09/13/2017 5:21:50 PM Referred By: Beatrice MANDUJANO Overread By: ANA LUISA MCINTOSH MD
[2017-09-13] MEDS: clonazePAM 0.5 MG TABLET PO PRN (18:30)
[2017-09-13] MEDS ORDERED: INSULIN SLIDING SCALE (NOVOLOG) 1 VIAL SQ SCH (22:00)
[2017-09-13] MEDS: ATORVASTATIN CA 20 MG TABLET (FP) PO SCH (22:56)
[2017-09-13] MEDS: SODIUM CHLORIDE 1,000 ML IV SCH (22:57)
[2017-09-13] MEDS ORDERED: INSULIN (NOVOLOG) ASPART 100 UNITS/ML 10ML VIAL SQ ONE (23:15)
[2017-09-14] MEDS: SODIUM CHLORIDE 1,000 ML IV SCH (04:20)
[2017-09-14] MEDS: HEPARIN NA (PORCINE) 5,000 UNITS/ML 1ML VIAL SQ SCH (06:35)
[2017-09-14] MEDS: LEVOTHYROXINE NA 50 MCG TABLET (FP) PO SCH (06:35)
[2017-09-14] MEDS: INSULIN DETEMIR 100 UNITS/ML MDV SQ SCH (06:36)
[2017-09-14] MEDS: INSULIN SLIDING SCALE (NOVOLOG) 1 VIAL SQ SCH (06:36)
[2017-09-14] MEDS: INSULIN (NOVOLOG) ASPART 100 UNITS/ML 10ML VIAL SQ SCH ×2 (06:37→11:54)
[2017-09-14] MEDS: ALBUTEROL SO4 0.5 % INH SOLN 2.5 MG/0.5 ML VIAL.NEB. NEB SCH ×2 (07:37→11:11)
[2017-09-14 07:54] LABS: HEMATOCRIT 34.7 % (32.4-45.2); MCH 24.5 pg (25.7-33.7); MCHC 31.6 g/dl (32.0-36.0); MEAN CELL VOLUME 77.5 fl (80-96); MEAN PLT VOLUME 9.5 fl (7.5-11.1); PLATELET COUNT 196 K/MM3 (134-434); RBC 4.47 M/mm3 (3.60-5.2); RDW 15.1 % (11.6-15.6); WHITE BLOOD COUNT 9.1 K/mm3 (4.0-10.0)
[2017-09-14 08:29] LABS: ANION GAP 10 (8-16); BLOOD UREA NITROGEN 17 mg/dL (7-18); CALCIUM 8.2 mg/dL (8.5-10.1); CHLORIDE 107 mmol/L (98-107); CO2 18 mmol/L (21-32); MAGNESIUM 1.7 mg/dL (1.8-2.4); SODIUM 135 mmol/L (136-145)
[2017-09-14 08:38] LABS: PHOSPHOROUS 3.5 mg/dL (2.5-4.9)
[2017-09-14 08:42] LABS: GLUCOSE,RANDOM 426 mg/dL (74-106)
[2017-09-14] MEDS ORDERED: INSULIN (NOVOLOG) ASPART 100 UNITS/ML 10ML VIAL SQ ONE (08:57)
--- NOTE | 2017-09-14 09:05 | CONSULT ---
Consult Consult Specialty:: Endocrinology coverage for Dr Vieyra Referred by:: Vicente Cardoza Reason for Consultation:: Hyperglycemia - History of Present Illness Chief Complaint: Syncope History of Present Illness: This is a 51 year old female with history of hypertension, hypercholesterolemia, diabetes mellitus for 19 years insulin requiring for about 15, CVA, cirrhosis, anxiety, neurocardiogenic syncope, morbid obesity and obstructive sleep apnea who presents after syncopal episode at home. Pt say she had gone to change garbage bag in her kitchen and "passed out". She was found on the floor by her aide. Takes Lantus 50 units dailya and Novolog 5 to 10 units TID at home. Has polyuria, polydipsa and nocturia at home. No visual symptoms, Has paresthesia of feet. - History Source History Provided By: Patient, Medical Record Limitations to Obtaining History: Poor Historian - Past Medical History SPORTS INTERN: Yes: CVA, Seizure, TIA Cardio/Vascular: Yes: CAD, HTN, Hyperlipdemia Pulmonary: Yes: Sleep Apnea ...LMP: 08/15/17 Infectious Disease: Yes: Other (Hep C) Psych: Yes: Anxiety, Bipolar Endocrine: Yes: Diabetes Mellitus - Past Surgical History Past Surgical History: Yes: - Alcohol/Substance Use Hx Alcohol Use: No - Smoking History Smoking history: Former smoker Have you smoked in the past 12 months: No If you are a former smoker, when did you quit?: 3 years ago - Social History Usual Living Arrangement: Alone ADL: Independent History of Recent Travel: No Home Medications - Allergies Allergies/Adverse Reactions: Allergies Allergy/AdvReac Type Severity Reaction Status Date / Time Iodinated Contrast- Oral and Allergy Intermediate Itching Verified 09/09/17 10: 51 IV Dye [Iodinated Contrast Media - IV Dye] tramadol AdvReac Verified 09/09/17 10:51 - Home Medications Home Medications: Ambulatory Orders Fluoxetine HCl [Prozac -] 40 mg PO DAILY 09/15/14 Gabapentin [Neurontin -] 600 mg PO QID 09/15/14 [place]-3 Fatty Acids [[place]-3] 1,000 mg PO BID 09/15/14 Albuterol Sulfate Inhaler - [Ventolin HFA Inhaler -] 1 - 2 inh PO QID 03/15/16 Insulin Glargine,Hum.rec.anlog [Lantus Solostar PEN -] 50 units SQ AM 03/15/17 Liraglutide [Victoza -] 1.8 mg SQ DAILY@1200 03/15/17 clonazePAM [Klonopin -] 0.5 mg PO BID PRN 05/12/17 Meclizine HCl [Antivert -] 12.5 mg PO Q6H PRN #20 tablet 06/27/17 Aspirin 81 mg PO DAILY 08/15/17 Ergocalciferol (Vitamin D2) [Vitamin D2] 50,000 units PO WEEKLY 08/15/17 Levothyroxine [Synthroid -] 50 mcg PO DAILY 08/15/17 Topiramate [Topamax] 150 mg PO BID 30 Days #60 tablet 08/15/17 Hydrocodone/Acetaminophen [Hydrocodone-Acetamin 10-325 mg] 1 each PO BID PRN # 60 tablet MDD 2 08/21/17 Atorvastatin Ca [Lipitor] 20 mg PO HS 09/09/17 Insulin (LOG) Aspart [NovoLOG -] 15 units SQ TID 09/09/17 Tiotropium [place] [Spiriva] 1 inh PO DAILY 09/09/17 Atorvastatin Ca [Lipitor] 20 mg PO HS 09/10/17 Insulin (Levemir) [Levemir Vial] 15 units SQ HS #10 ml 09/11/17 Loratadine [Claritin] 10 mg PO DAILY 09/11/17 Insulin (Levemir) [Levemir Vial] 30 units SQ HS #1 ml 09/14/17 Family Disease History - Family Disease History Family Disease History: Diabetes: Mother (,), Brother (one living - etoh ), Sister (two living - ), Heart Disease: Father (living, no contact,etoh), Sister, Respiratory: Father, Other: Father, Mother, Brother, Sister, Daughter ( one with etoh) Review of Systems - Review of Systems Constitutional: reports: No Symptoms Eyes: reports: No Symptoms HENT: reports: No Symptoms Neck: reports: No Symptoms Cardiovascular: reports: No Symptoms Respiratory: reports: No Symptoms Gastrointestinal: reports: No Symptoms Genitourinary: reports: Frequency Musculoskeletal: reports: No Symptoms Integumentary: reports: No Symptoms Neurological: reports: Dizziness Endocrine: reports: Other (polyuria, nocturia) Hematology/Lymphatic: reports: No Symptoms Physical Exam Vital Signs: Vital Signs Temperature 97.7 F 09/14/17 06:00 Pulse Rate 88 09/14/17 07:37 Respiratory Rate 18 09/14/17 07:02 Blood Pressure 107/61 09/14/17 07:02 O2 Sat by Pulse Oximetry (%) 96 09/14/17 07:37 Constitutional: Yes: No Distress, Calm Eyes: Yes: Conjunctiva Clear, EOM Intact HENT: Yes: Atraumatic, Normocephalic Neck: Yes: Supple, Trachea Midline Cardiovascular: Yes: Regular Rate and Rhythm Respiratory: Yes: Regular, CTA Bilaterally Gastrointestinal: Yes: Normal Bowel Sounds, Soft Musculoskeletal: Yes: WNL Extremities: Yes: WNL Edema: No Neurological: Yes: Alert, Oriented Labs: CBC, BMP 09/14/17 07:00 09/14/17 07:00 Assessment/Plan AP: Syncope T2DM: Obesity Seen by Nutrition BGM QACHS Continue Levemir 50 +30 Increase Novolog Coverage Will F/U
[2017-09-14] MEDS ORDERED: INSULIN SLIDING SCALE (NOVOLOG) 1 VIAL SQ SCH ×2 (09:07→22:00)
[2017-09-14] MEDS ORDERED: PT OWN MED DRAWER 7, Y5N ONE (09:37)
[2017-09-14] MEDS: OMEGA-3 ACID ETHYL ESTERS (FATTY-ACIDS) 1 GM CAPSULE (FP) PO SCH (09:41)
[2017-09-14] MEDS: TOPIRAMATE 100 MG TABLET PO SCH (09:41)
[2017-09-14] MEDS: GABAPENTIN 300 MG CAPSULE (FP) PO SCH (09:41)
[2017-09-14] MEDS: OSELTAMIVIR PHOSPHATE 75 MG CAPSULE PO SCH (09:42)
[2017-09-14] MEDS: FLUoxetine HCL 20 MG CAPSULE (FP) PO SCH (09:42)
[2017-09-14] MEDS: ASPIRIN 81 MG CHEWABLE TABLETS PO SCH (09:43)
[2017-09-14] MEDS: TIOTROPIUM BROMIDE 18 MCG/INH (DEVICE W/ 5 CAPSULES) IH SCH (09:43)
[2017-09-14] MEDS: LOSARTAN POTASSIUM 25 MG TABLET PO SCH (09:43)
--- NOTE | 2017-09-14 12:03 | DS ---
Physical Exam: SUBJECTIVE: Patient seen and examined at bedtime. She denies any fever, chills, N/V/D/C. denies any chest pain or sob. OBJECTIVE: Vital Signs Period Temp Pulse Resp BP Sys/Giron Pulse Ox Last 24 Hr 97.7 F-99.0 F 86-108 18-18 101-127/60-78 96-100 PHYSICAL EXAM GENERAL: AAOx3 in NAD HEAD: NC/AT EYES: EOMI, Conjunctiva clear, sclera anicteric ENT: dry mucous membrane NECK: Supple, no JVD LUNGS: CTAB/L , no wheezes HEART: RRR, NSR, normal s1, s2, soft murmur , no M/R/G ABDOMEN: Obese,Soft, ND, NT, +BS 4 Q, no CVA Tenderness LOWER EXTREMITIES: no edema, +2 pulse, B/L scar medial side. NEUROLOGICAL: no focal deficit . Normal speech. gait not observed. PSYCHIATRIC: Cooperative. Good eye contact. Appropriate mood and affect. SKIN: Warm, dry, LABS Laboratory Results - last 24 hr 09/13/17 09/13/17 09/13/17 12:01 14:33 16:49 WBC RBC Hgb Hct MCV MCH MCHC RDW Plt Count MPV Sodium Potassium Chloride Carbon Dioxide Anion Gap BUN Creatinine POC Glucometer 336 377 388 Random Glucose Calcium Phosphorus Magnesium 09/13/17 09/13/17 09/13/17 20:29 20:30 21:30 WBC RBC Hgb Hct MCV MCH MCHC RDW Plt Count MPV Sodium Potassium Chloride Carbon Dioxide Anion Gap BUN Creatinine POC Glucometer 437 452 Random Glucose 427 H* Calcium Phosphorus Magnesium 09/14/17 09/14/17 09/14/17 06:08 06:10 07:00 WBC 9.1 RBC 4.47 Hgb 11.0 Hct 34.7 MCV 77.5 L MCH 24.5 L MCHC 31.6 L RDW 15.1 Plt Count 196 MPV 9.5 Sodium Potassium Chloride Carbon Dioxide Anion Gap BUN Creatinine POC Glucometer 452 472 Random Glucose Calcium Phosphorus Magnesium 09/14/17 09/14/17 09/14/17 07:00 08:49 11:17 WBC RBC Hgb Hct MCV MCH MCHC RDW Plt Count MPV Sodium 135 L Potassium 4.0 Chloride 107 Carbon Dioxide 18 L Anion Gap 10 BUN 17 Creatinine 1.0 POC Glucometer 415 377 Random Glucose 426 H* Calcium 8.2 L Phosphorus 3.5 Magnesium 1.7 L CBC, BMP 09/14/17 07:00 09/14/17 07:00 HOSPITAL COURSE: Date of Admission:09/12/17 Date of Discharge: 09/14/17 is a 52 year old female with PMH of HTN, HLD,Hypothyroidism and syncope presented to ED with one day H/O chest pain pressure like non radiating admitted to R/O PE and ACS ,and due to uncontrolled Blood sugar. For Med sternal chest pain PE ruled out , likely plueritic chest pain due to viral bronchitis vs common cold vs muskeoloskeltal pain unlikely ACS, pain resolved, CXR was negative for acute process. EKG with No S, ST wave changes , CTA negative for PE ,pt treated imperially with 5 days of Tamiflue 75 mg PO BID.duo-neb and spiriva. For NSVT on monitor possible artifact ,Bookkeeping Machine Operator Consulted , put her on holter monitor to R/L arrhythmia ,TSH 3.4,Transthoracic echocardiography shows normal LV systolic function,EKG shows NSR with left axis deviation, QtC 491. In term of loc likely due to Syncope due to dehydration ( polyuria and diarrhea ) ,vs seizure vs arrhythmia pt passed out twice 2 day before admission, unwitnessed, treated with IV fluids,orthostatics came back negative EKG did not show any ST,T wave changes,cardiology causes were ruled out on recent visit and hlter monitor reading came back negative this visit.pt had ALEJANDRO likely pre renal due to volume depletion , diarrhea and polyuria improved with in hydration and BUN/Cr is 17/1.0 on day of discharged. pt has DM, uncontrolled and non compliant with her meds ,Hyperglycemic on admission with glu 315 without DKA ,Hold oral agents victoza ,continue continue levemir 50 Q AM and started 30 units at bedtime , ISS 10 units TID before each meal .Dr Houston was consulted and added the following to the previous treatment: ISS TIDAC per following protocol 101- 150.......0 151-200........4 201-250........8 251-300.......10 301-350.......12 351-400 ......14 >400 ....... 14 and call doctor ISS 1 vial SQ at bed time HS 101- 150.......0 151-200........0 201-250........4 251-300.......6 301-350.......8 351-400 ......10 >400 ....... call doctor Victoza can be resumed upon discharged. pt was found to have some thickening in the endometrial confirmed on abdomen US and she will follow as out pt with Front End Developer Designer.pt has a H/O Seizure on Topramax 150 BID , consider adding Vimpat will F/U as out pt with neurologist .for her HTN , controlled Resume home meds : losartan 25 mg po daily.for HLD continue lipitor 20 mg po daily , for hypothyroidism continue Synthroid 50 mcg daily. pt has H/O sleep apnea with no CPAP At home, f/u as out pt with pulmonary.pt is hemodynamically stable and will be send to see her holter technician Dr.neshwat Diaz at 2.30 today and then home.pt will follow up with her PCP, pulmonary,cardiology , Neurology and Obgynecology for the endometrial thickening. pt will be send to her holter technician Dr.Neshwat Diaz for adjusting her diabetes meds. Minutes to complete discharge: 40 <Vicente Cardoza - Last Filed: 09/14/17 13:02> Physical Exam: Patient seen and examined with the resident. Agree with the plan. Patient is doing well, will continue one more day of Tamiflu, Will see today since discussed wit , wants the patient to be in different regimen, upon discharge from the hospital , patient has an appointment with around 2:30pm today. Also follow with the OBGYN for possible endometrial bx to r /o cancer, patient is postmenaupausal since was found to have endometrial thickening on US of abdomen and pelvis. <Shabnam Rodriguez - Last Filed: 09/14/17 15:43> Discharge Summary Reason For Visit: HYPERGLYCEMIA, SOB Current Active Problems Vaginal bleeding (Acute) Anxiety (Chronic) Diabetes mellitus, insulin dependent (IDDM), uncontrolled (Chronic) Dizziness (Chronic) HTN (hypertension) (Chronic) Hypercholesterolemia (Chronic) MARILU (obstructive sleep apnea) (Chronic) Seizure (Chronic) Stroke (Chronic) Tachycardia (Chronic) - Home Medications Comprehensive Discharge Medication List: Ambulatory Orders Fluoxetine HCl [Prozac -] 40 mg PO DAILY 09/15/14 Gabapentin [Neurontin -] 600 mg PO QID 09/15/14 [place]-3 Fatty Acids [[place]-3] 1,000 mg PO BID 09/15/14 Albuterol Sulfate Inhaler - [Ventolin HFA Inhaler -] 1 - 2 inh PO QID 03/15/16 Insulin Glargine,Hum.rec.anlog [Lantus Solostar PEN -] 50 units SQ AM 03/15/17 Liraglutide [Victoza -] 1.8 mg SQ DAILY@1200 03/15/17 clonazePAM [Klonopin -] 0.5 mg PO BID PRN 05/12/17 Meclizine HCl [Antivert -] 12.5 mg PO Q6H PRN #20 tablet 06/27/17 Aspirin 81 mg PO DAILY 08/15/17 Ergocalciferol (Vitamin D2) [Vitamin D2] 50,000 units PO WEEKLY 08/15/17 Levothyroxine [Synthroid -] 50 mcg PO DAILY 08/15/17 Topiramate [Topamax] 150 mg PO BID 30 Days #60 tablet 08/15/17 Hydrocodone/Acetaminophen [Hydrocodone-Acetamin 10-325 mg] 1 each PO BID PRN # 60 tablet MDD 2 08/21/17 Atorvastatin Ca [Lipitor] 20 mg PO HS 09/09/17 Insulin (LOG) Aspart [NovoLOG -] 15 units SQ TID 09/09/17 Tiotropium [place] [Spiriva] 1 inh PO DAILY 09/09/17 Atorvastatin Ca [Lipitor] 20 mg PO HS 09/10/17 Insulin (Levemir) [Levemir Vial] 15 units SQ HS #10 ml 09/11/17 Loratadine [Claritin] 10 mg PO DAILY 09/11/17 Oseltamivir Phosphate [Tamiflu -] 75 mg PO BID #9 capsule 09/11/17 <Vicente Cardoza - Last Filed: 09/14/17 13:02> - Home Medications Comprehensive Discharge Medication List: Ambulatory Orders Fluoxetine HCl [Prozac -] 40 mg PO DAILY 09/15/14 Gabapentin [Neurontin -] 600 mg PO QID 09/15/14 [place]-3 Fatty Acids [[place]-3] 1,000 mg PO BID 09/15/14 Albuterol Sulfate Inhaler - [Ventolin HFA Inhaler -] 1 - 2 inh PO QID 03/15/16 Insulin Glargine,Hum.rec.anlog [Lantus Solostar PEN -] 50 units SQ AM 03/15/17 Liraglutide [Victoza -] 1.8 mg SQ DAILY@1200 03/15/17 clonazePAM [Klonopin -] 0.5 mg PO BID PRN 05/12/17 Meclizine HCl [Antivert -] 12.5 mg PO Q6H PRN #20 tablet 06/27/17 Aspirin 81 mg PO DAILY 08/15/17 Ergocalciferol (Vitamin D2) [Vitamin D2] 50,000 units PO WEEKLY 08/15/17 Levothyroxine [Synthroid -] 50 mcg PO DAILY 08/15/17 Topiramate [Topamax] 150 mg PO BID 30 Days #60 tablet 08/15/17 Hydrocodone/Acetaminophen [Hydrocodone-Acetamin 10-325 mg] 1 each PO BID PRN # 60 tablet MDD 2 08/21/17 Atorvastatin Ca [Lipitor] 20 mg PO HS 09/09/17 Insulin (LOG) Aspart [NovoLOG -] 15 units SQ TID 09/09/17 Tiotropium [place] [Spiriva] 1 inh PO DAILY 09/09/17 Atorvastatin Ca [Lipitor] 20 mg PO HS 09/10/17 Insulin (Levemir) [Levemir Vial] 15 units SQ HS #10 ml 09/11/17 Loratadine [Claritin] 10 mg PO DAILY 09/11/17 Insulin (Levemir) [Levemir Vial] 30 units SQ HS #1 ml 09/14/17 <Shabnam Rodriguez - Last Filed: 09/14/17 15:43> Condition: Good - Instructions Diet, Activity, Other Instructions: You were in the hospital because of atypical chest pain and high blood sugar. Your chest pain was evaluated and was determined to be likely musculoskeletal in nature and not because of heart or lung issue. We found that your sugars are high so we adjusted your insulin: continue Levemir 50 every morning and started 30 units at bedtime , sliding scale 10 units three times before each meal .Dr Houston was consulted and added the following to the previous treatment: sliding scale three times before bed each meal per following protocol 101- 150.......0 151-200........4 201-250........8 251-300.......10 301-350.......12 351-400 ......14 >400 ....... 14 and call doctor sliding scale 1 vial at bed time HS 101- 150.......0 151-200........0 201-250........4 251-300.......6 301-350.......8 351-400 ......10 >400 ....... call doctor Victoza can be resumed upon discharged. Continue Topomax 150 twice a day. Resume all other home meds as before discharged. We performed a pelvic ultrasound and it showed that your endometrium (lining of uterus) is abnormally thick (2 cm). It may have caused the bleeding that you thought was coming from your urine. It is very important that you see a Call Worker As soon as possible . If you do not have one, see Dr Lozano, whose office is near our hospital. Let her know about the above ultrasound findings to rule out endometrial cancer please follow up with neurologist within a week Please follow up with your primary care physician within one week please follow up with pulmonary within one week for sleep apnea. Return to hospital if symptoms worsen. Referrals: Floyd Cardoso MD [Staff Physician] - 1 Month Daniel Jacobson MD [Staff Physician] - 1 Week Wu Wagner [Non Staff, Medical] - 1 Week Doris Lozano DO [Staff Physician] - 1 Week Marco Antonio Hugo MD [Staff Physician] - 09/14/17 Damaris Solis MD [Primary Care Provider] - 1 Week Disposition: HOME This patient is new to me today: No Emergency Visit: Yes ED Registration Date: 09/12/17 Care time: The patient presented to the Emergency Department on the above date and was hospitalized for further evaluation of their emergent condition. Critical Care patient: No - Discharge Referral Referred to [facility] Med P.C[facility] No <Vicente Cardoza - Last Filed: 09/14/17 13:02>
[2017-09-14] MEDS: clonazePAM 0.5 MG TABLET PO PRN (12:56)
--- NOTE | 2017-09-14 13:08 | PN ---
Progress Note, Physician Chief Complaint: Events noted Complains of shortness of breath and palpitations Monitor does not reveal any arrhythmia Artifacts are noted History of Present Illness: Patient was seen and examined. Awake and alert. Chart was reviewed Denies chest pain, but complains of palpitations Monitor reveals intermittent tachycardia which appears to be artifacts Holter monitor was unremarkable - Current Medication List Current Medications: Active Medications Acetaminophen (Tylenol -) 650 mg PO Q6H PRN PRN Reason: PAIN Last Admin: 09/13/17 00:19 Dose: 650 mg Albuterol Sulfate (Ventolin 0.5% -) 1 amp NEB RQID [facility] Last Admin: 09/14/17 11:11 Dose: 1 amp Albuterol Sulfate (Ventolin Hfa Inhaler -) 1 puff IH QID PRN PRN Reason: SHORTNESS OF BREATH Last Admin: 09/11/17 04:31 Dose: 1 puff Aspirin (Asa -) 81 mg PO DAILY [facility] Last Admin: 09/14/17 09:43 Dose: 81 mg Atorvastatin Calcium (Lipitor -) 20 mg PO HS [facility] Last Admin: 09/13/17 22:56 Dose: 20 mg Clonazepam (Klonopin -) 0.5 mg PO Q12H PRN PRN Reason: ANXIETY Last Admin: 09/14/17 12:56 Dose: 0.5 mg Fluoxetine HCl (Prozac -) 40 mg PO DAILY [facility] Last Admin: 09/14/17 09:42 Dose: 40 mg Gabapentin (Neurontin -) 900 mg PO HS [facility] Last Admin: 09/13/17 22:56 Dose: 900 mg Gabapentin (Neurontin -) 600 mg PO DAILY [facility] Last Admin: 09/14/17 09:41 Dose: 600 mg Heparin Sodium (Porcine) (Heparin -) 5,000 unit SQ TID [facility] Last Admin: 09/14/17 06:35 Dose: 5,000 unit Sodium Chloride (Normal Saline -) 1,000 mls @ 100 mls/hr IV ASDIR [facility] Last Admin: 09/14/17 04:20 Dose: 100 mls/hr Insulin Aspart (Novolog Vial) 10 units SQ TIDAC [facility] PRN Reason: Protocol Last Admin: 09/14/17 11:54 Dose: 10 units Insulin Aspart (Novolog Vial Sliding Scale -) 1 vial SQ HS [facility] PRN Reason: Protocol Insulin Aspart (Novolog Vial Sliding Scale -) 1 vial SQ TIDAC [facility] PRN Reason: Protocol Last Admin: 09/14/17 11:55 Dose: 14 units Insulin Detemir (Levemir Vial) 50 units SQ AM [facility] Last Admin: 09/14/17 06:36 Dose: 50 units Insulin Detemir (Levemir Vial) 30 units SQ HS [facility] Last Admin: 09/13/17 22:54 Dose: 30 units Levothyroxine Sodium (Synthroid -) 50 mcg PO DAILY@0700 [facility] Last Admin: 09/14/17 06:35 Dose: 50 mcg Losartan Potassium (Cozaar -) 25 mg PO DAILY [facility] Last Admin: 09/14/17 09:43 Dose: 25 mg Meclizine HCl (Antivert -) 12.5 mg PO Q6H PRN PRN Reason: VERTIGO Last Admin: 09/12/17 10:36 Dose: 12.5 mg [id number] Ethyl Esters (Lovaza -) 1 gm PO BID [facility] Last Admin: 09/14/17 09:41 Dose: 1 gm Oseltamivir Phosphate (Tamiflu -) 75 mg PO BID [facility] Stop: 09/14/17 21:59 Last Admin: 09/14/17 09:42 Dose: 75 mg Tiotropium [place] (Spiriva -) 1 puff IH DAILY [facility] Last Admin: 09/14/17 09:43 Dose: 1 puff Topiramate (Topamax -) 150 mg PO BID [facility] Last Admin: 09/14/17 09:41 Dose: 150 mg - Objective Vital Signs: Vital Signs Temperature 97.7 F 09/14/17 06:00 Pulse Rate 88 09/14/17 07:37 Respiratory Rate 18 09/14/17 07:02 Blood Pressure 107/61 09/14/17 07:02 O2 Sat by Pulse Oximetry (%) 96 09/14/17 07:37 Constitutional: Yes: Well Nourished Eyes: Yes: PERRL HENT: Yes: Atraumatic Neck: Yes: Supple Cardiovascular: Yes: Regular Rate and Rhythm, S1, S2 Respiratory: Yes: CTA Bilaterally Gastrointestinal: Yes: Normal Bowel Sounds, Soft, Abdomen, Obese. No: Tenderness Edema: No Labs: CBC, BMP 09/14/17 07:00 09/14/17 07:00 Problem List - Problems (1) HTN (hypertension) Code(s): I10 - ESSENTIAL (PRIMARY) HYPERTENSION Qualifiers: Hypertension type: essential hypertension Qualified Code(s): I10 - Essential (primary) hypertension (2) Hypercholesterolemia Code(s): E78.00 - PURE HYPERCHOLESTEROLEMIA, UNSPECIFIED (3) Anxiety Code(s): F41.9 - ANXIETY DISORDER, UNSPECIFIED (4) Diabetes mellitus, insulin dependent (IDDM), uncontrolled Code(s): E10.65 - TYPE 1 DIABETES MELLITUS WITH HYPERGLYCEMIA Qualifiers: Diabetes mellitus complication status: without complication Qualified Code( s): E10.65 - Type 1 diabetes mellitus with hyperglycemia (5) Dizziness Code(s): R42 - DIZZINESS AND GIDDINESS (6) MARILU (obstructive sleep apnea) Code(s): G47.33 - OBSTRUCTIVE SLEEP APNEA (ADULT) (PEDIATRIC) (7) Shortness of breath Code(s): R06.02 - SHORTNESS OF BREATH (8) Weakness Code(s): R53.1 - WEAKNESS (9) Syncope Code(s): R55 - SYNCOPE AND COLLAPSE Qualifiers: Syncope type: unspecified Qualified Code(s): R55 - Syncope and collapse Assessment/Plan 1. SOB , malaise , body aches - etiology to be determined and palpitations, rule out arrhythmia 2. Recurrent syncope, etiology to be determined 2. Hypertension 3. Hypercholesterolemia 4. Diabetes mellitus - Insulin requiring 5. Morbid obesity with probable obstructive sleep apnea 6. Anxiety disorder (severe) 7. Hypothyroidism 8. Atypical chest pain 9. Probable bronchial asthma PLAN: 1. Tamiflu, bronchodilator, O2 as needed and DVT prophylaxis - currently in contact isolation 2. Continue current medical therapy including Lipitor, Lovaza and ASA. Continue Losartan as tolerated 3. Anxiety management 4. Obstructive sleep apnea needs to be addressed and possible CPAP if clinically indicated 5. Consider Tilt table test at some point as outpatient 6. Transthoracic echocardiography was reviewed - normal LV systolic function 7. Holter monitor noted Further plans are to follow. Discharge planning as per primary service Herberth Werner MD
[2017-09-14 14:12] VITALS: BP 121/63; PULSE 94; TEMP 98
== END 2017-09-14 14:36 | disposition home or self-care (01) | DRG 422 ==
LOC: JER 10:43 → JERBED 18:51 → UNDOADMOB 18:51 → INTOOBSV 18:51 → UNDOADMIN 19:14 → JERBED 19:14 → J4S 09-11 21:16 → OBSVTOIN 09-12 18:32
PROVIDERS: ADMIT Internal Medicine; ATTEND Internal Medicine
DX: E86.0 Dehydration (principal); R55 Syncope and collapse; D68.32 Hemorrhagic disorder due to extrinsic circulating anticoagulants; E11.65 Type 2 diabetes mellitus with hyperglycemia; E66.01 Morbid (severe) obesity due to excess calories; Z68.42 Body mass index [BMI] 45.0-49.9, adult; I69.354 Hemiplegia and hemiparesis following cerebral infarction affecting left non-dominant side; R31.9 Hematuria, unspecified; T45.515A Adverse effect of anticoagulants, initial encounter; I10 Essential (primary) hypertension; E78.5 Hyperlipidemia, unspecified; J45.909 Unspecified asthma, uncomplicated; E03.9 Hypothyroidism, unspecified; Z79.4 Long term (current) use of insulin; G40.89 Other seizures; Z87.891 Personal history of nicotine dependence; G47.33 Obstructive sleep apnea (adult) (pediatric); F41.9 Anxiety disorder, unspecified; R19.7 Diarrhea, unspecified; B19.20 Unspecified viral hepatitis C without hepatic coma; R07.89 Other chest pain; S06.9X1A Unspecified intracranial injury with loss of consciousness of 30 minutes or less, initial encounter; W01.0XXA Fall on same level from slipping, tripping and stumbling without subsequent striking against object, initial encounter; Y93.89 Activity, other specified; Y92.231 Patient bathroom in hospital as the place of occurrence of the external cause; Y99.8 Other external cause status; Z91.14 Patient's other noncompliance with medication regimen; N17.9 Acute kidney failure, unspecified; R06.02 Shortness of breath; R00.0 Tachycardia, unspecified
CPT/HCPCS: 36415; 36600; 70450-TC; 71046-TC-FY; 76775-TC; 76856-TC; 78582-TC; 80048; 80053; 81003; 81015; 82009; 82550; 82803; 82947; 82962; 83735; 83880; 84100; 84443; 84484; 85025; 85027; 85379; 85610; 86850; 86900; 86901; 87086; 93005; 93010; 93225; 93226; 93306-TC; 94640; 94660; 99285-25; A9539; A9540; G0378; J1644

== ENCOUNTER 2017-09-26 16:53 | Emergency (ER) | payer OTHER ==
[2017-09-26 17:12] VITALS: PULSE 110; TEMP 97.6; BMI 46.6
--- NOTE | 2017-09-26 17:17 | PDOC ---
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 The patient is accompanied by her aid who states the patient had an episode where she clenched her fists and tensed her body lasting about 5 minutes. The patient states that she does not recall the event. They note that her last seizure was in june and she is currently taking topomax and reported compliant with her medications. She denies fevers, chills, SOB, chest pain, nausea, vomiting, abdominal pain, or changes with urination or bowel movements. Past History - Past Medical History Allergies/Adverse Reactions: Allergies Allergy/AdvReac Type Severity Reaction Status Date / Time Iodinated Contrast- Oral and Allergy Intermediate Itching Verified 09/26/17 17: 12 IV Dye [Iodinated Contrast Media - IV Dye] tramadol AdvReac Verified 09/26/17 17:12 Home Medications: Ambulatory Orders Fluoxetine HCl [Prozac -] 40 mg PO DAILY 09/15/14 Gabapentin [Neurontin -] 600 mg PO QID 09/15/14 [place]-3 Fatty Acids [[place]-3] 1,000 mg PO BID 09/15/14 Albuterol Sulfate Inhaler - [Ventolin HFA Inhaler -] 1 - 2 inh PO QID 03/15/16 Insulin Glargine,Hum.rec.anlog [Lantus Solostar PEN -] 50 units SQ AM 03/15/17 Liraglutide [Victoza -] 1.8 mg SQ DAILY@1200 03/15/17 clonazePAM [Klonopin -] 0.5 mg PO BID PRN 05/12/17 Meclizine HCl [Antivert -] 12.5 mg PO Q6H PRN #20 tablet 06/27/17 Aspirin 81 mg PO DAILY 08/15/17 Ergocalciferol (Vitamin D2) [Vitamin D2] 50,000 units PO WEEKLY 08/15/17 Levothyroxine [Synthroid -] 50 mcg PO DAILY 08/15/17 Topiramate [Topamax] 150 mg PO BID 30 Days #60 tablet 08/15/17 Hydrocodone/Acetaminophen [Hydrocodone-Acetamin 10-325 mg] 1 each PO BID PRN # 60 tablet MDD 2 08/21/17 Atorvastatin Ca [Lipitor] 20 mg PO HS 09/09/17 Insulin (LOG) Aspart [NovoLOG -] 15 units SQ TID 09/09/17 Tiotropium [place] [Spiriva] 1 inh PO DAILY 09/09/17 Insulin (Levemir) [Levemir Vial] 15 units SQ HS #10 ml 09/11/17 Loratadine [Claritin] 10 mg PO DAILY 09/11/17 Phenytoin Na Extended [Dilantin -] 300 mg PO DAILY #12 capsule 09/26/17 Asthma: Yes Cardiac Disorders: No CVA: Yes (weakness on lt side) COPD: No CHF: No Dementia: No Diabetes: Yes (on meds) GI Disorders: No Disorders: No HTN: Yes Hypercholesterolemia: Yes Liver Disease: Yes (hep C - treated) Psychiatric Problems: Yes (depression, anxiety, BIPOLAR) Seizures: Yes (long time ago) Thyroid Disease: Yes (hypothyroid) - Surgical History Abdominal Surgery: Yes (UMBILICAL HERNIA) - Suicide/Smoking/Psychosocial Hx Smoking History: Former smoker Have you smoked in the past 12 months: No If you are a former smoker, when did you quit?: 2014 Information on smoking cessation initiated: No 'Breaking Loose' booklet given: 09/16/14 Hx Alcohol Use: No Drug/Substance Use Hx: No Substance Use Type: None Hx Substance Use Treatment: No Review of Systems - Review of Systems Comments:: 09/26/17 18:13 Constitutional: Fatigue. No fevers, chills, malaise HEENT: No Rhinorrhea, nasal congestion, visual changes Cardiovascular: No chest pain, syncope, palpitations, lightheadedness Respiratory: No Cough, SOB, Hemoptysis, Gastrointestinal: No Abdominal pain, Nausea, Vomiting, Constipation, Diarrhea, Melena Genitourinary: No Dysuria, Frequency, Urgency, Hesitancy, Hematuria, Flank pain Musculoskeletal: No Myalgia, arthralgia Skin: No rashes, itching, bruising, pallor Neurologic: Seizure. No Headache, Dizziness, Numbness, Weakness, or Tingling Psychiatric: No Hallucinations. No SI or HI *Physical Exam - Vital Signs Last Vital Signs Temp Pulse Resp BP Pulse Ox 97.6 F 110 H 14 124/88 97 09/26/17 16:55 09/26/17 16:55 09/26/17 16:55 09/26/17 16:55 09/26/17 16:55 - Physical Exam Comments: 09/26/17 18:15 General Appearance: Nourished. No Apparent Distress HEENT: EOMI, JANETH. No Pharyngeal Erythema, Tonsillar Exudate, Tonsillar Erythema Neck: No Cervical Lymphadenopathy Respiratory/Chest: Lungs Clear, Normal Breath Sounds. No Crackles, Rales, Rhonchi, Wheezing Cardiovascular: Regular Rhythm, Regular Rate. No Murmur, Gallops, Rubs Gastrointestinal/Abdominal: Normal Bowel Sounds, Soft. No Guarding, Rebound, Tenderness Musculoskeletal: No CVA Tenderness Extremity: Normal Capillary Refill Integumentary: Normal Color, Dry, Warm Neurologic: sample coordinator II-XII NML intact, Fully Oriented, Alert, Normal Mood/Affect, Normal Response, Motor Strength 5/5. 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 Given her history of seizure activity similar to prior episodes, it is likely her symptoms were due to breakthrough activity. We will obtain a cbc, cmp, and chest plain film to evaluate further. We will continue to monitor and reassess. 09/26/17 19:02 CBC, cmp are unremarkable or unchanged. Chest plain film is unremarkable as read by our radiologist. We discussed the case with Dr. Daniel a partner of Dr. Mendoza the patient's neurologist who agreed with discharge home and requested that we treat with a dose of 500mg dilantin here in the ED and discharge the patient home on 300mg dilantin. The patient will follow up with Dr. mendoza in 2 days. We discussed the results and the plan with the patient who voiced understanding and is agreeable with the plan. *DC/Admit/Observation/Transfer Diagnosis at time of Disposition: Seizure - Discharge Dispostion Disposition: HOME Condition at time of disposition: Good Admit: No - Prescriptions Prescriptions: Phenytoin Na Extended [Dilantin -] 300 mg PO DAILY #12 capsule - Referrals Referrals: Damaris Solis MD [Primary Care Provider] - Jhonathan Mendoza DO [Staff Physician] - - Patient Instructions Printed Discharge Instructions: DI for Seizure Disorder -- Adult Additional Instructions: Please return to the ER if you experience concerning or worsening symptoms including seizures, headache, difficulty breathing, or chest pain. Your lab results were normal here in the ER. We spoke with your neurologist who will see you in the office on . We have sent a prescription for dilantin that you should take 300mg daily and your neurologist may change that prescription in his office. Please call to confirm your appointment with Dr. Mendoza this . - Post Discharge Activity
[2017-09-26 17:48] LABS: BASO % 0.5 % (0-2.0); EOS % 5.1 % (0-4.5); HEMATOCRIT 37.3 % (32.4-45.2); HEMOGLOBIN 11.9 GM/dL (10.7-15.3); LYMPH % 28.5 % (8-40); MEAN CELL VOLUME 78.2 fl (80-96); MEAN PLT VOLUME 9.5 fl (7.5-11.1); MONO % 6.8 % (3.8-10.2); NEUT % 59.1 % (42.8-82.8); PLATELET COUNT 231 K/MM3 (134-434); RBC 4.77 M/mm3 (3.60-5.2); RDW 15.3 % (11.6-15.6); WHITE BLOOD COUNT 8.6 K/mm3 (4.0-10.0)
[2017-09-26 18:30] LABS: ALBUMIN 3.3 g/dl (3.4-5.0); ALK PHOS 89 U/L (45-117); ANION GAP 8 (8-16); BILIRUBIN,TOTAL 0.2 mg/dL (0.2-1.0); BLOOD UREA NITROGEN 12 mg/dL (7-18); CALCIUM 8.3 mg/dL (8.5-10.1); CHLORIDE 106 mmol/L (98-107); CO2 24 mmol/L (21-32); CREATININE 1.1 mg/dL (0.55-1.02); GLUCOSE,RANDOM 273 mg/dL (74-106); SGOT/AST 19 U/L (15-37); SGPT/ALT 30 U/L (12-78); SODIUM 138 mmol/L (136-145); TOT PROT 7.1 g/dl (6.4-8.2)
[2017-09-26] MEDS ORDERED: PHENYTOIN SODIUM 100 MG/2 ML VIAL IVPB ONE (19:04)
[2017-09-26 19:25] VITALS: BP 135/82
[2017-09-26] MEDS ORDERED: PHENYTOIN SODIUM INJECTION 500 MG in SODIUM CHLORIDE 100 ML IVPB ONE (19:45)
[2017-09-26] MEDS ORDERED: PHENYTOIN NA EXTENDED 100 MG CAPSULE (FP) PO ONE (19:51)
[2017-09-26] MEDS ORDERED: PHENYTOIN NA EXTENDED 100 MG CAPSULE (FP) ONE (19:57)
== END 2017-09-26 20:07 | disposition home or self-care (01) ==
LOC: JER 16:53
DX: R56.9 Unspecified convulsions (principal); I10 Essential (primary) hypertension; E78.00 Pure hypercholesterolemia, unspecified; E11.9 Type 2 diabetes mellitus without complications; Z79.4 Long term (current) use of insulin; I69.854 Hemiplegia and hemiparesis following other cerebrovascular disease affecting left non-dominant side; Z79.82 Long term (current) use of aspirin
CPT/HCPCS: 36415; 71045-TC-FY; 80053; 84703; 85025; 99282-25

== ENCOUNTER 2017-10-26 16:54 | Inpatient (IN) | payer OTHER ==
--- NOTE | 2017-10-26 17:33 | PDOC ---
History of Present Illness - General History Source: Patient Exam Limitations: No Limitations - History of Present Illness Initial Comments: 10/26/17 18:40 The patient is a 52 year old female, with a significant past medical history of diabetes mellitus, hypertension, asthma, CVA, COPD, who presents to the emergency department via EMS with, shortness of breath from doctors office. The patient states she has had progressively worsening shortness of breath for one day with associated wheezing. The patient states she was given Symbicort medication for the shortness of breath at the doctor's office with minimal relief. The patient also states she has had left upper quadrant pain, dry cough , nausea without emesis and decreased appetite and activity for 2 days. She denies recent fevers, chills, headache or dizziness. She denies recent vomit , diarrhea or constipation. She denies recent dysuria, frequency, urgency or hematuria. She denies recent chest pain. Allergies: Iodinated Contrast - Oral and IV Dye, tramadol <Arthur Goins - Last Filed: 10/26/17 19:12> <Maria T Arzate - Last Filed: 10/26/17 21:24> - General Chief Complaint: Shortness of Breath Stated Complaint: SOB Time Seen by Provider: 10/26/17 17:31 Past History <Arthur Goins - Last Filed: 10/26/17 19:12> - Past Medical History Asthma: Yes Cardiac Disorders: No 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) COPD: No CHF: No Dementia: No Diabetes: Yes (IDDM) GI Disorders: No Disorders: No HTN: Yes Hypercholesterolemia: Yes Liver Disease: Yes (hep C - treated) Psychiatric Problems: Yes (depression, anxiety, BIPOLAR) Seizures: Yes Thyroid Disease: Yes (hypothyroid) - Surgical History Abdominal Surgery: Yes (UMBILICAL HERNIA) - Suicide/Smoking/Psychosocial Hx Smoking History: Former smoker Have you smoked in the past 12 months: No If you are a former smoker, when did you quit?: 2014 'Breaking Loose' booklet given: 09/16/14 Hx Alcohol Use: No Drug/Substance Use Hx: No Substance Use Type: None Hx Substance Use Treatment: No <Maria T Arzate - Last Filed: 10/26/17 21:24> - Past Medical History Allergies/Adverse Reactions: Allergies Allergy/AdvReac Type Severity Reaction Status Date / Time azithromycin Allergy Intermediate Itching Verified 10/26/17 20:44 Iodinated Contrast- Oral and Allergy Intermediate Itching Verified 09/26/17 17: 12 IV Dye [Iodinated Contrast Media - IV Dye] tramadol AdvReac Verified 09/26/17 17:12 Home Medications: Ambulatory Orders Fluoxetine HCl [Prozac -] 40 mg PO DAILY 09/15/14 Gabapentin [Neurontin -] 600 mg PO QID 09/15/14 [place]-3 Fatty Acids [[place]-3] 1,000 mg PO BID 09/15/14 Albuterol Sulfate Inhaler - [Ventolin HFA Inhaler -] 1 - 2 inh PO QID 03/15/16 Insulin Glargine,Hum.rec.anlog [Lantus Solostar PEN -] 50 units SQ AM 03/15/17 Liraglutide [Victoza -] 1.8 mg SQ DAILY@1200 03/15/17 clonazePAM [Klonopin -] 0.5 mg PO BID PRN 05/12/17 Meclizine HCl [Antivert -] 12.5 mg PO Q6H PRN #20 tablet 06/27/17 Aspirin 81 mg PO DAILY 08/15/17 Ergocalciferol (Vitamin D2) [Vitamin D2] 50,000 units PO WEEKLY 08/15/17 Levothyroxine [Synthroid -] 50 mcg PO DAILY 08/15/17 Topiramate [Topamax] 150 mg PO BID 30 Days #60 tablet 08/15/17 Atorvastatin Ca [Lipitor] 20 mg PO HS 09/09/17 Insulin (LOG) Aspart [NovoLOG -] 15 units SQ TID 09/09/17 Tiotropium [place] [Spiriva] 1 inh PO DAILY 09/09/17 Insulin (Levemir) [Levemir Vial] 15 units SQ HS #10 ml 09/11/17 Loratadine [Claritin] 10 mg PO DAILY 09/11/17 Phenytoin Na Extended [Dilantin -] 300 mg PO DAILY #12 capsule 09/26/17 Hydrocodone/Acetaminophen [Hydrocodone-Acetamin 10-325 mg] 1 each PO BID PRN # 60 tablet MDD 2 09/29/17 Review of Systems - Review of Systems Comments:: 10/26/17 18:42 GENERAL/CONSTITUTIONAL: +Decreased appetite and activity. No fever or chills. No weakness. HEAD, EYES, EARS, NOSE AND THROAT: No change in vision. No ear pain or discharge. No sore throat. CARDIOVASCULAR: +Shortness of breath. No chest pain. RESPIRATORY: +Dry cough. +Wheezing. No hemoptysis. GASTROINTESTINAL: +Nausea. +Left upper quadrant pain. No vomiting, diarrhea or constipation. GENITOURINARY: No dysuria, frequency, or change in urination. MUSCULOSKELETAL: No joint or muscle swelling or pain. No neck or back pain. SKIN: No rash NEUROLOGIC: No headache, vertigo, loss of consciousness, or change in strength/ sensation. ENDOCRINE: No increased thirst. No abnormal weight change. HEMATOLOGIC/LYMPHATIC: No anemia, easy bleeding, or history of blood clots. ALLERGIC/IMMUNOLOGIC: No hives or skin allergy. <Arthur Goins - Last Filed: 10/26/17 19:12> *Physical Exam - Vital Signs Last Vital Signs Temp Pulse Resp BP Pulse Ox 97.7 F 93 H 16 124/72 99 10/26/17 17:41 10/26/17 17:41 10/26/17 17:41 10/26/17 17:41 10/26/17 17:41 - Physical Exam Comments: 10/26/17 18:47 GENERAL: +Mild respiratory distress. Awake, alert, and fully oriented. HEAD: No signs of trauma EYES: PERRLA, EOMI, sclera anicteric, conjunctiva clear ENT: Auricles normal inspection, hearing grossly normal, nares patent, oropharynx clear without exudates. Moist mucosa NECK: Normal ROM, supple, no lymphadenopathy, JVD, or masses LUNGS: +Mild conversational dyspnea. +Tachypnea. HEART: +Tachycardia. Regular rhythm, normal S1 and S2, no murmurs, rubs or gallops ABDOMEN: +Protuberant abdomen. Soft, nontender, normoactive bowel sounds. No guarding, no rebound. No masses EXTREMITIES: +Trace edema in lower extremities. Normal range of motion. No clubbing or cyanosis. No cords, erythema, or tenderness NEUROLOGICAL: Cranial nerves II through XII grossly intact. Normal speech, normal gait SKIN: Warm, Dry, normal turgor, no rashes or lesions noted. <Arthur Goins - Last Filed: 10/26/17 19:12> Heart Score/ECG Review - ECG Intrepretation Comment:: 10/26/17 19:49 sinus at 91, nl axis, nl interval, no acute st/t wave findings <Maria T Arzate - Last Filed: 10/26/17 21:24> ED Treatment Course - LABORATORY CBC & Chemistry Diagram: 10/26/17 18:30 10/26/17 18:02 - Medications Given in the ED: ED Medications Discontinued Medications Generic Name Dose Route Start Last Admin Trade Name Elmer PRN Reason Stop Dose Admin Albuterol/Ipratropium 1 amp 10/26/17 18:00 10/26/17 18:33 Duoneb - NEB 10/26/17 18:01 1 amp ONCE ONE Administration <Arthur Goins - Last Filed: 10/26/17 19:12> - LABORATORY CBC & Chemistry Diagram: 10/26/17 18:30 10/26/17 18:02 <Maria T Arzate - Last Filed: 10/26/17 21:24> Medical Decision Making - Medical Decision Making 10/26/17 19:46 a/p: 52yo female with SOB x 2 days - EWING - using nebs/inhalers at home with minimal relief -also PND/orthopnea -no increased wt gain -minimal edema to LE -concern for COPD exacerbation -however risk factors for ACS/CHF - will obtain labs, ekg, cxr -will give nebs for COPD -will monitor and reassess 10/26/17 20:43 pt itching after azithro - stopped will add to allergy profile will change to avelox for COPD exacerbation 10/26/17 21:06 re-eval: feeling better after 3 nebs given levaquin for copd exacerbation will keep in obs for continued neb treatments microblog sent to [email or web address] 10/26/17 21:07 pt sent in by Dr. Hugo - requested admit to [facility] - covered by [employer] overnight 10/26/17 21:11 [facility] <Maria T Arzate - Last Filed: 10/26/17 21:24> *DC/Admit/Observation/Transfer - Attestations Scribe Attestion: 10/26/17 18:52 Documentation prepared by Arthur Goins, acting as medical malpractice paralegal for Maria T Arzate DO. <Arthur Goins - Last Filed: 10/26/17 19:12> - Discharge Dispostion Admit: Yes - Attestations Physician Attestion: 10/26/17 21:12 I, Dr. Maria T Arzate DO, attest that this document has been prepared under my direction and personally reviewed by me in its entirety. I further attest, that it accurately reflects all work, treatment, procedures and medical decision -making performed by me. <Maria T Arzate - Last Filed: 10/26/17 21:24> Diagnosis at time of Disposition: Dyspnea, COPD exacerbation - Discharge Dispostion Condition at time of disposition: Fair - Referrals Referrals: Laura Craft MD [Primary Care Provider] - - Patient Instructions - Post Discharge Activity
[2017-10-26] MEDS ORDERED: ALBUTEROL SO4 2.5/IPRATROPIUM 0.5 INH SOL 3 ML VIAL.NEB. NEB ONE ×5 (18:00→20:07)
[2017-10-26 18:43] LABS: BASO % 0.2 % (0-2.0); HEMATOCRIT 34.7 % (32.4-45.2); HEMOGLOBIN 11.8 GM/dL (10.7-15.3); LYMPH % 28.4 % (8-40); MCH 26.8 pg (25.7-33.7); MCHC 33.9 g/dl (32.0-36.0); MEAN CELL VOLUME 78.9 fl (80-96); MEAN PLT VOLUME 9.6 fl (7.5-11.1); MONO % 7.1 % (3.8-10.2); NEUT % 59.3 % (42.8-82.8); PLATELET COUNT 245 K/MM3 (134-434); RDW 15.6 % (11.6-15.6); WHITE BLOOD COUNT 8.2 K/mm3 (4.0-10.0)
[2017-10-26 18:44] LABS: VENOUS PH 7.3 (7.32-7.42); VENOUS PO2 41.1 mmHg (28-48)
[2017-10-26 19:09] LABS: ALBUMIN 3.4 g/dl (3.4-5.0); ANION GAP 13 (8-16); BILIRUBIN,TOTAL 0.3 mg/dL (0.2-1.0); BLOOD UREA NITROGEN 9 mg/dL (7-18); CALCIUM 8.8 mg/dL (8.5-10.1); CHLORIDE 102 mmol/L (98-107); CO2 24 mmol/L (21-32); CREATININE 0.9 mg/dL (0.55-1.02); GLUCOSE,RANDOM 285 mg/dL (74-106); SGPT/ALT 22 U/L (12-78); SODIUM 139 mmol/L (136-145); TOT PROT 7.6 g/dl (6.4-8.2)
[2017-10-26 19:12] LABS: ALK PHOS 85 U/L (45-117)
[2017-10-26 19:13] LABS: SGOT/AST 31 U/L (15-37)
[2017-10-26] MEDS ORDERED: methylPREDNISolone NA SUCC 125 MG/2 ML VIAL IVPB ONE (19:50)
[2017-10-26] MEDS ORDERED: SODIUM CHLORIDE 0.9% 1000 ML INFUS.BAG IV ONE ×2 (19:50→21:04)
[2017-10-26] MEDS ORDERED: MAGNESIUM SULF 50% (8.12 MEQ/2 ML-1 GM VIAL) IVPB ONE (19:51)
[2017-10-26] MEDS ORDERED: AZITHROMYCIN IVPB 500 MG in DEXTROSE 5%-WATER - 250 ML IVPB ONE (19:51)
[2017-10-26] MEDS ORDERED: MAGNESIUM SULF 50% (8.12 MEQ/2 ML-1 GM VIAL) ONE (20:07)
[2017-10-26] MEDS ORDERED: AZITHROMYCIN IVPB 250 ML IVPB ONE (20:07)
[2017-10-26] MEDS ORDERED: methylPREDNISolone NA SUCC 125 MG/2 ML VIAL ONE (20:08)
[2017-10-26] MEDS ORDERED: ONDANSETRON 4 MG/2 ML VIAL IVPUSH ONE (20:23)
[2017-10-26] MEDS ORDERED: ONDANSETRON 4 MG/2 ML VIAL ONE (20:25)
[2017-10-26] MEDS ORDERED: ONDANSETRON 4 MG/2 ML VIAL IVPUSH PRN (21:52)
[2017-10-26] MEDS ORDERED: INSULIN SLIDING SCALE (NOVOLOG) 1 VIAL SQ SCH (22:00)
--- NOTE | 2017-10-26 22:19 | HP ---
CHIEF COMPLAINT: shortness of breath HISTORY OF PRESENT ILLNESS: 52 year old female with a history of diabetes, hypothyroid, HTN, asthma, COPD, sleep apnea, depression/anxiety, CVA (2014) with L sided weakness presents to the hospital for 3 day history of dry cough and shortness of breath. She states that she went to Dr. Hugo's office and took symbicort there without any alleviation of her symptoms, after which she was brought to the hospital. Patient states that she started feeling this cough and SOB simultaneously 3 days ago. Cough is non-productive but the patient states that she feels congested in her chest. She also reports mild left upper quadrant abdominal pain and believes its due to her coughing. Additionally reports nausea but no vomiting. Her children are currently sick with an upper respiratory infection. Denies chest pain, vomiting, headache, fevers, chills. Patient states that she has been hospitalized previously for COPD and has not been intubated before. She has a history of sleep apnea for which she used to use CPAP but then stopped. ER course was notable for: (1) Glu 285 (2) negative trop (3) Recent Travel: none PAST MEDICAL HISTORY: diabetes, hypothyroid, HTN, asthma, COPD, sleep apnea, depression/anxiety, CVA (2015) PAST SURGICAL HISTORY: hernia repair Social History: Smoking: former smoker of 34 years, smoked 1 pack a day - quit 3 years ago Alcohol: none Drugs: none Allergies azithromycin Allergy (Intermediate, Verified 10/26/17 20:44) Itching Iodinated Contrast- Oral and IV Dye [Iodinated Contrast Media - IV Dye] Allergy (Intermediate, Verified 09/26/17 17:12) Itching tramadol Adverse Reaction (Verified 09/26/17 17:12) HOME MEDICATIONS: Home Medications Medication Instructions Recorded Fluoxetine HCl [Prozac -] 40 mg PO DAILY 09/15/14 Gabapentin [Neurontin -] 600 mg PO QID 09/15/14 [place]-3 Fatty Acids [[place]-3] 1,000 mg PO BID 09/15/14 Albuterol Sulfate Inhaler - 1 - 2 inh PO QID 03/15/16 [Ventolin HFA Inhaler -] Insulin Glargine,Hum.rec.anlog 50 units SQ AM 03/15/17 [Lantus Solostar PEN -] Liraglutide [Victoza -] 1.8 mg SQ DAILY@1200 03/15/17 clonazePAM [Klonopin -] 0.5 mg PO BID PRN 05/12/17 Meclizine HCl [Antivert -] 12.5 mg PO Q6H PRN #20 tablet 06/27/17 Aspirin 81 mg PO DAILY 08/15/17 Ergocalciferol (Vitamin D2) 50,000 units PO WEEKLY 08/15/17 [Vitamin D2] Levothyroxine [Synthroid -] 50 mcg PO DAILY 08/15/17 Topiramate [Topamax] 150 mg PO BID 30 Days #60 tablet 08/15/17 Atorvastatin Ca [Lipitor] 20 mg PO HS 09/09/17 Insulin (LOG) Aspart [NovoLOG -] 15 units SQ TID 09/09/17 Tiotropium [place] [Spiriva] 1 inh PO DAILY 09/09/17 Insulin (Levemir) [Levemir Vial] 15 units SQ HS #10 ml 09/11/17 Loratadine [Claritin] 10 mg PO DAILY 09/11/17 Phenytoin Na Extended [Dilantin -] 300 mg PO DAILY #12 capsule 09/26/17 Hydrocodone/Acetaminophen 1 each PO BID PRN #60 tablet MDD 2 09/29/17 [Hydrocodone-Acetamin 10-325 mg] REVIEW OF SYSTEMS CONSTITUTIONAL: Absent: fever, chills, diaphoresis, generalized weakness, malaise, loss of appetite, weight change HEENT: Absent: rhinorrhea, nasal congestion, throat pain, throat swelling, difficulty swallowing, mouth swelling, ear pain, eye pain, visual changes CARDIOVASCULAR: Absent: chest pain, syncope, palpitations, irregular heart rate, lightheadedness , peripheral edema RESPIRATORY: cough, shortness of breath, orthopnea, wheezing, Absent: dyspnea with exertion, stridor, hemoptysis GASTROINTESTINAL: abdominal pain, Absent: abdominal distension, nausea, vomiting, diarrhea, constipation, melena , hematochezia GENITOURINARY: Absent: dysuria, frequency, urgency, hesitancy, hematuria, flank pain, genital pain MUSCULOSKELETAL: Absent: myalgia, arthralgia, joint swelling, back pain, neck pain SKIN: Absent: rash, itching, pallor HEMATOLOGIC/IMMUNOLOGIC: Absent: easy bleeding, easy bruising, lymphadenopathy, frequent infections ENDOCRINE: Absent: unexplained weight gain, unexplained weight loss, heat intolerance, cold intolerance NEUROLOGIC: Absent: headache, focal weakness or paresthesias, dizziness, unsteady gait, seizure, mental status changes, bladder or bowel incontinence PSYCHIATRIC: Absent: anxiety, depression, suicidal or homicidal ideation, hallucinations. PHYSICAL EXAMINATION Vital Signs - 24 hr 10/26/17 10/26/17 16:55 17:41 Temperature 97.7 F Pulse Rate 94 H 93 H Respiratory 16 Rate Blood Pressure 124/72 O2 Sat by Pulse 99 99 Oximetry (%) GENERAL: A&Ox3, no acute distress EYES: PERRLA, EOMI ENT: Moist mucus membranes NECK: No JVD LUNGS: CTA, no wheezes appreciated HEART: mildly tachycardic in the 90s, no murmurs ABDOMEN: Obese, Soft, nontender EXTREMITIES: 2+ pulses, no edema. NEUROLOGICAL: Cranial nerves II-XII intact. Laboratory Results - last 24 hr 10/26/17 10/26/17 10/26/17 18:02 18:02 18:02 WBC RBC Hgb Hct MCV MCH MCHC RDW Plt Count MPV Neutrophils % Lymphocytes % Monocytes % Eosinophils % Basophils % VBG pH 7.30 L POC VBG pCO2 48.0 POC VBG pO2 41.1 Mixed VBG HCO3 24.2 Sodium 139 Potassium 4.0 Chloride 102 Carbon Dioxide 24 Anion Gap 13 BUN 9 Creatinine 0.9 Creat Clearance w eGFR > 60 Random Glucose 285 H Calcium 8.8 Magnesium 2.0 Total Bilirubin 0.3 D AST 31 ALT 22 Alkaline Phosphatase 85 Creatine Kinase 72 Troponin I < 0.02 B-Natriuretic Peptide Total Protein 7.6 Albumin 3.4 Beta HCG, Quant < 1.0 10/26/17 10/26/17 18:30 18:30 WBC 8.2 RBC 4.40 Hgb 11.8 Hct 34.7 MCV 78.9 L MCH 26.8 MCHC 33.9 RDW 15.6 Plt Count 245 MPV 9.6 Neutrophils % 59.3 Lymphocytes % 28.4 Monocytes % 7.1 Eosinophils % 5.0 H Basophils % 0.2 VBG pH POC VBG pCO2 POC VBG pO2 Mixed VBG HCO3 Sodium Potassium Chloride Carbon Dioxide Anion Gap BUN Creatinine Creat Clearance w eGFR Random Glucose Calcium Magnesium Total Bilirubin AST ALT Alkaline Phosphatase Creatine Kinase Troponin I B-Natriuretic Peptide 18.33 Total Protein Albumin Beta HCG, Quant ASSESSMENT/PLAN: 52 year old female with a history of diabetes, hypothyroid, HTN, asthma, COPD, sleep apnea, depression/anxiety, CVA (2014) with L sided weakness presented to the hospital with 3 days of shortness of breath and dry cough suspect for COPD exacerbation #COPD Exacerbation: patient is in mild exacerbation with no significant physical exam findings -prednisone 40mg for 5 days, no taper -duonebs q4h -patient was given azithro in ED, to which she had allergic reaction and was switched to levaquin -will not continue abx at present time -O2 nasal cannula IF NEEDED -monitor O2 sats #Diabetes: patient's glucose was 286 -Previous A1C in 08/17 was ~9 -repeat A1C -levemir 15 U in the evening -ISS -BGMs ACHS -confirm home medications (patient is on neurontin, klonazepam, and other medications)- [facility] ([phone]) #Hypothyroidism: not an acute issue -continue synthroid 50 PO daily #CVA: residual left sided weakness that has since improved -aspirin -continue statin #Hypertension: not currently hypertensive -continue lisinopril 40, but need to confirm home medications #FEN -No standing fluids -electrolytes within normal limits -diabetic diet #Prophylaxis -heparin prophylaxis subQ TID #Disposition -admit for observation -confirm home medications - appears as though her list is not up to date. Visit type - Emergency Visit Emergency Visit: Yes Care time: The patient presented to the Emergency Department on the above date and was hospitalized for further evaluation of their emergent condition. - New Patient This patient is new to me today: Yes Date on this admission: 10/26/17 - Critical Care Critical Care patient: No Hospitalist Screening - Colonoscopy Questionnaire Colonoscopy Questionnaire: Colonoscopy Questionnaire - Patient: 50 - 75 years old and never had a screening colonoscopy: Unknown History of colon or rectal polyps, or CA: Unknown History of IBD, Crohn's disease or UC: Unknown History of abdominal radiation therapy as a child: Unknown - Relative: 1 with colon or rectal CA, or polyps at age 60 or younger: Unknown Colon or rectal CA diagnosed at age 45 or younger: Unknown Multiple relatives with colon or rectal CA: Unknown - Outcome: Screening Result: Negative Screen
[2017-10-26] MEDS ORDERED: TOPIRAMATE 100 MG TABLET PO SCH (22:30)
[2017-10-26] MEDS ORDERED: GABAPENTIN 100 MG CAPSULE (FP) ONE (23:11)
--- NOTE | 2017-10-26 23:14 | PN ---
Teaching Attending Note Name of Resident: Herman Heard ATTENDING PHYSICIAN STATEMENT I saw and evaluated the patient. I reviewed the resident's note and discussed the case with the resident. I agree with the resident's findings and plan as documented. SUBJECTIVE: 52F morbidly obese, COPD, p30+ pack year smoking resents with worsernign SOB for 3 days. children have viral URI. She quit smoking 3 yrs ago. Not using CPAP , pending pulmonary appt OBJECTIVE: Lungs: CTA_B Blood glucose 285 CXR Clear ASSESSMENT AND PLAN: 52F with mild COPD exacerbation, likely component of Obesity hypoventilation as well start prednisone 40mg daily duonebs q4 can be admit to obs
[2017-10-26] MEDS: TOPIRAMATE PO SCH (23:19)
[2017-10-26] MEDS: GABAPENTIN 300 MG CAPSULE (FP) PO SCH (23:19)
[2017-10-26] MEDS ORDERED: INSULIN (NOVOLOG) ASPART 100 UNITS/ML 10ML VIAL SQ ONE (23:36)
[2017-10-26] MEDS ORDERED: INSULIN (NOVOLOG) ASPART 100 UNITS/ML 10ML VIAL ONE (23:39)
[2017-10-27] MEDS ORDERED: LEVOTHYROXINE NA 25 MCG TABLET (FP) ONE (06:17)
[2017-10-27] MEDS ORDERED: GABAPENTIN 100 MG CAPSULE (FP) ONE (06:17)
[2017-10-27 06:32] LABS: HEMATOCRIT 34.5 % (32.4-45.2); HEMOGLOBIN 11.4 GM/dL (10.7-15.3); MCH 26.7 pg (25.7-33.7); MCHC 33.2 g/dl (32.0-36.0); MEAN CELL VOLUME 80.6 fl (80-96); MEAN PLT VOLUME 9.9 fl (7.5-11.1); PLATELET COUNT 224 K/MM3 (134-434); RBC 4.28 M/mm3 (3.60-5.2); RDW 15.6 % (11.6-15.6); WHITE BLOOD COUNT 8.1 K/mm3 (4.0-10.0)
[2017-10-27] MEDS: GABAPENTIN 300 MG CAPSULE (FP) PO SCH ×3 (06:36→22:06)
[2017-10-27 06:47] LABS: ANION GAP 10 (8-16); BLOOD UREA NITROGEN 14 mg/dL (7-18); CALCIUM 8.3 mg/dL (8.5-10.1); CHLORIDE 102 mmol/L (98-107); CO2 23 mmol/L (21-32); POTASSIUM 4.5 mmol/L (3.5-5.1); SODIUM 135 mmol/L (136-145)
[2017-10-27 06:54] LABS: CREATININE 1.3 mg/dL (0.55-1.02)
[2017-10-27] MEDS: LEVOTHYROXINE NA 50 MCG TABLET (FP) PO SCH (06:54)
[2017-10-27 07:36] LABS: GLUCOSE,RANDOM 550 mg/dL (74-106)
[2017-10-27] MEDS: INSULIN SLIDING SCALE (NOVOLOG) 1 VIAL SQ SCH ×4 (08:02→22:07)
[2017-10-27] MEDS: ALBUTEROL SO4 2.5/IPRATROPIUM 0.5 INH SOL 3 ML VIAL.NEB. NEB SCH ×3 (08:03→16:03)
[2017-10-27 09:39] LABS: HCG,QUALITATIVE URINE NEGATIVE
[2017-10-27 09:40] LABS: URINE APPEARANCE CLEAR; URINE BILIRUBIN NEGATIVE (<2.0 mg/dL); URINE BLOOD 2+ (NEGATIVE); URINE COLOR COLORLESS; URINE GLUCOSE (UA) 3+ (NEGATIVE); URINE KETONE NEGATIVE (NEGATIVE); URINE LEUK ESTERASE NEGATIVE (NEGATIVE); URINE NITRITE NEGATIVE (NEGATIVE); URINE PROTEIN NEGATIVE (NEGATIVE); URINE UROBILINOGEN NEGATIVE mg/dL (0.2-1.0)
--- NOTE | 2017-10-27 09:56 | EKG ---
Test Reason : Blood Pressure : / mmHG Vent. Rate : 091 BPM Atrial Rate : 091 BPM P-R Int : 158 ms QRS Dur : 096 ms QT Int : 378 ms P-R-T Axes : 038 -38 045 degrees QTc Int : 464 ms POOR DATA QUALITY, INTERPRETATION MAY BE ADVERSELY AFFECTED NORMAL SINUS RHYTHM LEFT AXIS DEVIATION MODERATE VOLTAGE CRITERIA FOR LVH, MAY BE NORMAL VARIANT ABNORMAL ECG WHEN COMPARED WITH ECG OF 12-SEP-2017 06:13, NO SIGNIFICANT CHANGE WAS FOUND Confirmed by ELIN HOLLOWAY MD ([id number]) on 10/27/2017 9:56:38 AM Referred By: Confirmed By:ELIN HOLLOWAY MD
[2017-10-27] MEDS ORDERED: GABAPENTIN 300 MG CAPSULE (FP) PO SCH (10:00)
[2017-10-27] MEDS: PHENYTOIN NA EXTENDED 100 MG CAPSULE (FP) PO SCH (10:00)
[2017-10-27] MEDS: predniSONE 20 MG TABLET (UD) PO SCH (10:00)
[2017-10-27] MEDS: LORATADINE 10 MG TABLET PO SCH (10:00)
[2017-10-27] MEDS: ASPIRIN 81 MG CHEWABLE TABLETS PO SCH (10:00)
[2017-10-27] MEDS: LISINOPRIL 20 MG TABLET (FP) PO SCH (10:01)
[2017-10-27] MEDS: TOPIRAMATE PO SCH ×2 (10:03→23:06)
[2017-10-27 10:31] LABS: EPI CELLS RARE /HPF (FEW); URINE BACTERIA RARE /hpf (NONE SEEN)
[2017-10-27] MEDS: FLUoxetine HCL 20 MG CAPSULE (FP) PO SCH (10:54)
[2017-10-27] MEDS ORDERED: METOPROLOL TARTRATE 5 MG/5 ML VIAL IVPUSH STA (11:20)
[2017-10-27] MEDS ORDERED: LORazepam 2 MG/ML SDV VIAL IVPUSH STA (11:21)
[2017-10-27] MEDS ORDERED: guaiFENesin/D-M SUGAR-FREE/ACLHOL-FREE 118 ML BOTTLE PO PRN (11:22)
[2017-10-27] MEDS ORDERED: BENZOCAINE/MENTH/CETYLPYRD CL 1 EACH LOZENGE MM PRN (11:22)
[2017-10-27] MEDS ORDERED: INSULIN DETEMIR 100 UNITS/ML MDV SQ SCH ×2 (11:23→22:00)
--- NOTE | 2017-10-27 12:50 | CON.CARD ---
Consult Consult Specialty:: Cardiology Referred by:: Rosmery Short MD Reason for Consultation:: Dyspnea - History of Present Illness Chief Complaint: Dyspnea History of Present Illness: Patient is a 52 year old female with underlying history of hypertension , hypercholesterolemia, diabetes mellitus insulin requiring, CVA, anxiety, neurocardiogenic syncope, morbid obesity, COPD and obstructive sleep apnea who presents with worsening SOB for 3 days, cough without wheeze. children have viral URI. She quit smoking 3 yrs ago. Not using CPAP, pending pulmonary appt. 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 Cardio/Vascular: Yes: CAD, HTN, Hyperlipdemia Pulmonary: Yes: Sleep Apnea ...LMP: 08/15/17 Infectious Disease: Yes: Other (Hep C) Psych: Yes: Anxiety, Bipolar Endocrine: Yes: Diabetes Mellitus - Past Surgical History Past Surgical History: Yes: - Alcohol/Substance Use Hx Alcohol Use: No - Smoking History Smoking history: Former smoker Have you smoked in the past 12 months: No If you are a former smoker, when did you quit?: 2014 - Social History Usual Living Arrangement: Alone ADL: Independent History of Recent Travel: No Home Medications - Allergies Allergies/Adverse Reactions: Allergies Allergy/AdvReac Type Severity Reaction Status Date / Time Iodinated Contrast- Oral and Allergy Intermediate Itching Verified 09/26/17 17: 12 IV Dye [Iodinated Contrast Media - IV Dye] azithromycin AdvReac Intermediate Itching Verified 10/27/17 06:39 tramadol AdvReac Verified 09/26/17 17:12 - Home Medications Home Medications: Ambulatory Orders Fluoxetine HCl [Prozac -] 40 mg PO DAILY 09/15/14 Gabapentin [Neurontin -] 600 mg PO QID 09/15/14 [place]-3 Fatty Acids [[place]-3] 1,000 mg PO BID 09/15/14 Albuterol Sulfate Inhaler - [Ventolin HFA Inhaler -] 1 - 2 inh PO QID 03/15/16 Insulin Glargine,Hum.rec.anlog [Lantus Solostar PEN -] 50 units SQ AM 03/15/17 Liraglutide [Victoza -] 1.8 mg SQ DAILY@1200 03/15/17 clonazePAM [Klonopin -] 0.5 mg PO BID PRN 05/12/17 Meclizine HCl [Antivert -] 12.5 mg PO Q6H PRN #20 tablet 06/27/17 Aspirin 81 mg PO DAILY 08/15/17 Ergocalciferol (Vitamin D2) [Vitamin D2] 50,000 units PO WEEKLY 08/15/17 Levothyroxine [Synthroid -] 50 mcg PO DAILY 08/15/17 Topiramate [Topamax] 150 mg PO BID 30 Days #60 tablet 08/15/17 Atorvastatin Ca [Lipitor] 20 mg PO HS 09/09/17 Insulin (LOG) Aspart [NovoLOG -] 15 units SQ TID 09/09/17 Tiotropium [place] [Spiriva] 1 inh PO DAILY 09/09/17 Insulin (Levemir) [Levemir Vial] 15 units SQ HS #10 ml 09/11/17 Loratadine [Claritin] 10 mg PO DAILY 09/11/17 Phenytoin Na Extended [Dilantin -] 300 mg PO DAILY #12 capsule 09/26/17 Hydrocodone/Acetaminophen [Hydrocodone-Acetamin 10-325 mg] 1 each PO BID PRN # 60 tablet MDD 2 09/29/17 Family Disease History - Family Disease History Family Disease History: Diabetes: Mother (,), Brother (one living - etoh ), Sister (two living - ), Heart Disease: Father (living, no contact,etoh), Sister, Respiratory: Father, Other: Father, Mother, Brother, Sister, Daughter ( one with etoh) Review of Systems - Review of Systems Respiratory: reports: Cough, SOB Vital Signs: Vital Signs Temperature 97.8 F 10/27/17 11:52 Pulse Rate 117 H 10/27/17 11:52 Respiratory Rate 16 10/27/17 11:52 Blood Pressure 149/71 10/27/17 11:52 O2 Sat by Pulse Oximetry (%) 97 10/27/17 11:52 Constitutional: Yes: Anxious Neck: Yes: Supple Respiratory: Yes: Regular, Diminished, On Nasal O2 Gastrointestinal: Yes: Normal Bowel Sounds, Soft, Abdomen, Obese Cardiovascular: Yes: Tachycardia JVD: No Carotid Bruit: No Heart Sounds: Yes: S1, S2 Edema: No - Other Data Labs, Other Data: CBC, BMP 10/27/17 05:45 10/27/17 05:55 Troponin, BNP 10/26/17 10/26/17 18:02 18:30 Troponin I < 0.02 B-Natriuretic Peptide 18.33 Troponin, BNP 10/26/17 10/26/17 18:02 18:30 Troponin I < 0.02 B-Natriuretic Peptide 18.33 NSR @ 91 LAD, min criteria LVH Problem List - Problems (1) COPD exacerbation Code(s): J44.1 - CHRONIC OBSTRUCTIVE PULMONARY DISEASE W (ACUTE) EXACERBATION (2) Anxiety Code(s): F41.9 - ANXIETY DISORDER, UNSPECIFIED (3) Bipolar disorder Code(s): F31.9 - BIPOLAR DISORDER, UNSPECIFIED Qualifiers: Active/Remission status: remission status unspecified Qualified Code(s): F31.9 - Bipolar disorder, unspecified (4) Diabetes mellitus, insulin dependent (IDDM), uncontrolled Code(s): E10.65 - TYPE 1 DIABETES MELLITUS WITH HYPERGLYCEMIA Qualifiers: Diabetes mellitus complication status: without complication Qualified Code( s): E10.65 - Type 1 diabetes mellitus with hyperglycemia (5) HTN (hypertension) Code(s): I10 - ESSENTIAL (PRIMARY) HYPERTENSION Qualifiers: Hypertension type: essential hypertension Qualified Code(s): I10 - Essential (primary) hypertension (6) Hypercholesterolemia Code(s): E78.00 - PURE HYPERCHOLESTEROLEMIA, UNSPECIFIED (7) MARILU (obstructive sleep apnea) Code(s): G47.33 - OBSTRUCTIVE SLEEP APNEA (ADULT) (PEDIATRIC) (8) Obesity, Class III, BMI 40-49.9 (morbid obesity) Code(s): E66.01 - MORBID (SEVERE) OBESITY DUE TO EXCESS CALORIES (9) Tachycardia Code(s): R00.0 - TACHYCARDIA, UNSPECIFIED (10) Shortness of breath Code(s): R06.02 - SHORTNESS OF BREATH Assessment/Plan 09/11/2017 Echo: Normal LV size and fxn 09/12/2017 Holter: No sig arrhythmias 1. Acute exacerbation of COPD, chronic bronchitis 2. Hypertension 3. Hypercholesterolemia 4. Diabetes mellitus - Insulin requiring 5. Morbid obesity with probable obstructive sleep apnea 6. Anxiety disorder (severe) 7. Hypothyroidism 8. Atypical chest pain 9. Sinus tachycardia referable to above PLAN: 1. Bronchodilator, O2 as needed, steroids and DVT prophylaxis 2. Continue current medical therapy including Lipitor 20 qhs, lisinopril and ASA 81 qd. Start Cardizem CD 120 qd as hemodynamics tolerate 3. Anxiety management 4. Obstructive sleep apnea needs to be addressed and possible CPAP if clinically indicated 5. Thank you for consultative opportunity
[2017-10-27] MEDS: INSULIN DETEMIR 100 UNITS/ML MDV SQ SCH ×2 (14:05→22:06)
--- NOTE | 2017-10-27 14:26 | PN ---
Progress Note, Physician Chief Complaint: Cough, SOB History of Present Illness: Anxious, in ER, received neb treatments ST on tele awaiting bed - Current Medication List Current Medications: Active Medications Albuterol/Ipratropium (Duoneb -) 1 amp NEB RQID [facility] Last Admin: 10/27/17 11:41 Dose: Not Given Aspirin (Asa -) 81 mg PO DAILY [facility] Last Admin: 10/27/17 10:00 Dose: 81 mg Atorvastatin Calcium (Lipitor -) 20 mg PO HS [facility] Benzocaine/Menthol (Cepacol Lozenge -) 1 each MM PRN PRN PRN Reason: SORE THROAT Clonazepam (Klonopin -) 0.5 mg PO Q12H PRN PRN Reason: ANXIETY Ergocalciferol (Drisdol -) 50,000 unit PO Th@1000 [facility] Fluoxetine HCl (Prozac -) 40 mg PO DAILY [facility] Last Admin: 10/27/17 10:54 Dose: 40 mg Gabapentin (Neurontin -) 300 mg PO TID [facility] Last Admin: 10/27/17 14:05 Dose: 300 mg Guaifenesin (Diabetic Tussin Dm -) 10 ml PO Q4H PRN PRN Reason: COUGH Insulin Aspart (Novolog Vial Sliding Scale -) 1 vial SQ ACHS [facility] PRN Reason: Protocol Last Admin: 10/27/17 12:11 Dose: 12 units Insulin Detemir (Levemir Vial) 15 units SQ BID@0700,2200 [facility] Last Admin: 10/27/17 14:05 Dose: 15 units Levothyroxine Sodium (Synthroid -) 50 mcg PO DAILY@0700 [facility] Last Admin: 10/27/17 06:54 Dose: 50 mcg Lisinopril (Prinivil) 40 mg PO DAILY [facility] Last Admin: 10/27/17 10:01 Dose: 40 mg Loratadine (Claritin -) 10 mg PO DAILY [facility] Last Admin: 10/27/17 10:00 Dose: 10 mg Ondansetron HCl (Zofran Injection) 4 mg IVPUSH Q6H PRN PRN Reason: NAUSEA Phenytoin Sodium (Dilantin -) 300 mg PO DAILY [facility] Last Admin: 10/27/17 10:00 Dose: 300 mg Prednisone (Deltasone -) 40 mg PO DAILY [facility] Last Admin: 10/27/17 10:00 Dose: 40 mg Topiramate 100 mg/ Topiramate (25 mg) 125 mg PO BID [facility] Last Admin: 10/27/17 10:03 Dose: 125 mg - Objective Vital Signs: Vital Signs Temperature 97.8 F 10/27/17 11:52 Pulse Rate 117 H 10/27/17 11:52 Respiratory Rate 16 10/27/17 11:52 Blood Pressure 149/71 10/27/17 11:52 O2 Sat by Pulse Oximetry (%) 97 10/27/17 11:52 Constitutional: Yes: Well Nourished, Anxious, Mild Distress Cardiovascular: Yes: Tachycardia Respiratory: Yes: Regular, Cough, SOB on Exertion Gastrointestinal: Yes: Normal Bowel Sounds, Soft, Abdomen, Obese Musculoskeletal: Yes: WNL Extremities: Yes: WNL Edema: No Peripheral Pulses WNL: Yes Neurological: Yes: Alert, Oriented Psychiatric: Yes: Alert, Oriented Labs: CBC, BMP 10/27/17 05:45 10/27/17 05:55 Problem List - Problems (1) Dyspnea Assessment/Plan: -pulmonary consult -Nasal O2 -Steroids -Robitussin -bronchodilators -CXR unremarkable Code(s): R06.00 - DYSPNEA, UNSPECIFIED (2) Anxiety Assessment/Plan: -Ativan IV 1 dose given -Clonazepam po outpatient dose Code(s): F41.9 - ANXIETY DISORDER, UNSPECIFIED (3) Diabetes mellitus, insulin dependent (IDDM), uncontrolled Assessment/Plan: -endocrinology consult -BGM -Diabetic diet -Insulin: novolog and levemir -RD consult Code(s): E10.65 - TYPE 1 DIABETES MELLITUS WITH HYPERGLYCEMIA Qualifiers: Diabetes mellitus complication status: without complication Qualified Code( s): E10.65 - Type 1 diabetes mellitus with hyperglycemia (4) Tachycardia Assessment/Plan: -Tele -Cardiology consult -Metoprolol 5 mg IVP x 1 given -repeat EKG -2/2 anxiety and nebulizer treatments Code(s): R00.0 - TACHYCARDIA, UNSPECIFIED Assessment/Plan see problem list
--- NOTE | 2017-10-27 16:17 | CON.PULM ---
Consult Consult Specialty:: PULMONARY Referred by:: UMAIR Reason for Consultation:: ASTHMA - History of Present Illness Chief Complaint: SOB/COUGH/WHEEZE/ History of Present Illness: The patient is a 52 year old female, with a significant past medical history of diabetes mellitus, hypertension, asthma, CVA, COPD, who presents to the emergency department via EMS with, shortness of breath from doctors office. The patient states she has had progressively worsening shortness of breath for one day with associated wheezing. The patient states she was given Symbicort medication for the shortness of breath at the doctor's office with minimal relief. The patient also states she has had left upper quadrant pain, dry cough , nausea without emesis and decreased appetite and activity for 2 days. She denies recent fevers, chills, headache or dizziness. She denies recent vomit , diarrhea or constipation. She denies recent dysuria, frequency, urgency or hematuria. She denies recent chest pain. 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 Cardio/Vascular: Yes: CAD, HTN, Hyperlipdemia Pulmonary: Yes: Sleep Apnea ...LMP: 08/15/17 Infectious Disease: Yes: Other (Hep C) Psych: Yes: Anxiety, Bipolar Endocrine: Yes: Diabetes Mellitus - Past Surgical History Past Surgical History: Yes: - Alcohol/Substance Use Hx Alcohol Use: No - Smoking History Smoking history: Former smoker Have you smoked in the past 12 months: No If you are a former smoker, when did you quit?: 2014 - Social History Usual Living Arrangement: Alone ADL: Independent History of Recent Travel: No Home Medications - Allergies Allergies/Adverse Reactions: Allergies Allergy/AdvReac Type Severity Reaction Status Date / Time Iodinated Contrast- Oral and Allergy Intermediate Itching Verified 09/26/17 17: 12 IV Dye [Iodinated Contrast Media - IV Dye] azithromycin AdvReac Intermediate Itching Verified 10/27/17 06:39 tramadol AdvReac Verified 09/26/17 17:12 - Home Medications Home Medications: Ambulatory Orders Fluoxetine HCl [Prozac -] 40 mg PO DAILY 09/15/14 Gabapentin [Neurontin -] 600 mg PO QID 09/15/14 [place]-3 Fatty Acids [[place]-3] 1,000 mg PO BID 09/15/14 Albuterol Sulfate Inhaler - [Ventolin HFA Inhaler -] 1 - 2 inh PO QID 03/15/16 Insulin Glargine,Hum.rec.anlog [Lantus Solostar PEN -] 50 units SQ AM 03/15/17 Liraglutide [Victoza -] 1.8 mg SQ DAILY@1200 03/15/17 clonazePAM [Klonopin -] 0.5 mg PO BID PRN 05/12/17 Meclizine HCl [Antivert -] 12.5 mg PO Q6H PRN #20 tablet 06/27/17 Aspirin 81 mg PO DAILY 08/15/17 Ergocalciferol (Vitamin D2) [Vitamin D2] 50,000 units PO WEEKLY 08/15/17 Levothyroxine [Synthroid -] 50 mcg PO DAILY 08/15/17 Topiramate [Topamax] 150 mg PO BID 30 Days #60 tablet 08/15/17 Atorvastatin Ca [Lipitor] 20 mg PO HS 09/09/17 Insulin (LOG) Aspart [NovoLOG -] 15 units SQ TID 09/09/17 Tiotropium [place] [Spiriva] 1 inh PO DAILY 09/09/17 Insulin (Levemir) [Levemir Vial] 15 units SQ HS #10 ml 09/11/17 Loratadine [Claritin] 10 mg PO DAILY 09/11/17 Phenytoin Na Extended [Dilantin -] 300 mg PO DAILY #12 capsule 09/26/17 Hydrocodone/Acetaminophen [Hydrocodone-Acetamin 10-325 mg] 1 each PO BID PRN # 60 tablet MDD 2 09/29/17 Family Disease History - Family Disease History Family Disease History: Diabetes: Mother (,), Brother (one living - etoh ), Sister (two living - ), Heart Disease: Father (living, no contact,etoh), Sister, Respiratory: Father, Other: Father, Mother, Brother, Sister, Daughter ( one with etoh) Review of Systems - Review of Systems Constitutional: reports: Fever Eyes: denies: Blurred Vision HENT: denies: Difficult Swallowing Neck: denies: Decreased ROM Cardiovascular: reports: Shortness of Breath. denies: Chest Pain Respiratory: reports: Cough, Exercise Intolerance, SOB, SOB on Exertion, Wheezing. denies: Hemoptysis Gastrointestinal: denies: Abdominal Pain Genitourinary: denies: Burning Physical Exam Vital Sings: Vital Signs Temperature 98.6 F 10/27/17 14:34 Pulse Rate 113 H 10/27/17 14:34 Respiratory Rate 16 10/27/17 14:34 Blood Pressure 126/76 10/27/17 14:34 O2 Sat by Pulse Oximetry (%) 97 10/27/17 14:34 Constitutional: Yes: Anxious Eyes: Yes: EOM Intact HENT: Yes: Normocephalic Neck: Yes: Trachea Midline Cardiovascular: Yes: Regular Rate and Rhythm, S1, S2 Respiratory: Yes: Diminished Gastrointestinal: Yes: Normal Bowel Sounds Edema: No Neurological: Yes: Alert Labs: CBC, BMP 10/27/17 05:45 10/27/17 05:55 REST REVIEWED Imaging - Results Chest X-ray: Report Reviewed, Image Reviewed EKG: Report Reviewed, Image Reviewed Problem List - Problems (1) Asthma Code(s): J45.909 - UNSPECIFIED ASTHMA, UNCOMPLICATED (2) COPD exacerbation Code(s): J44.1 - CHRONIC OBSTRUCTIVE PULMONARY DISEASE W (ACUTE) EXACERBATION (3) Anxiety Code(s): F41.9 - ANXIETY DISORDER, UNSPECIFIED (4) Dyspnea Code(s): R06.00 - DYSPNEA, UNSPECIFIED (5) Bipolar disorder Code(s): F31.9 - BIPOLAR DISORDER, UNSPECIFIED Qualifiers: Active/Remission status: remission status unspecified Qualified Code(s): F31.9 - Bipolar disorder, unspecified (6) Chronic renal insufficiency, stage III (moderate) Code(s): N18.3 - CHRONIC KIDNEY DISEASE, STAGE 3 (MODERATE) (7) Diabetes mellitus, insulin dependent (IDDM), uncontrolled Code(s): E10.65 - TYPE 1 DIABETES MELLITUS WITH HYPERGLYCEMIA Qualifiers: Diabetes mellitus complication status: without complication Qualified Code( s): E10.65 - Type 1 diabetes mellitus with hyperglycemia (8) History of stroke Code(s): Z86.73 - PRSNL HX OF TIA (TIA), AND CEREB INFRC W/O RESID DEFICITS (9) MARILU (obstructive sleep apnea) Code(s): G47.33 - OBSTRUCTIVE SLEEP APNEA (ADULT) (PEDIATRIC) (10) Obesity, Class III, BMI 40-49.9 (morbid obesity) Code(s): E66.01 - MORBID (SEVERE) OBESITY DUE TO EXCESS CALORIES Assessment/Plan PANCULTURE/PEAK FLOW/O2 SUPPLEMENTATION/ JUAN ALBERTO/LABA/LAMA/BRIEF COURSE STEROIDS/GLYCEMIC CONTROL WOULD GIVE EMPIRIC ANTIBIOTICS NEEDS PFT'S/PSG OUTPATIENT WILL FOLLOW Farhad SUMMERS MD
[2017-10-27 19:32] VITALS: BMI 47.6
[2017-10-27] MEDS ORDERED: INSULIN (NOVOLOG) ASPART 100 UNITS/ML 10ML VIAL ONE (22:05)
[2017-10-27] MEDS: ATORVASTATIN CA 20 MG TABLET (FP) PO SCH (22:06)
[2017-10-27] MEDS: clonazePAM 0.5 MG TABLET PO PRN (22:06)
[2017-10-27] MEDS: HEPARIN NA (PORCINE) 5,000 UNITS/ML 1ML VIAL SQ SCH (22:06)
[2017-10-28] MEDS: INSULIN DETEMIR 100 UNITS/ML MDV SQ SCH ×3 (06:13→21:47)
[2017-10-28] MEDS: INSULIN SLIDING SCALE (NOVOLOG) 1 VIAL SQ SCH ×5 (06:14→21:47)
[2017-10-28] MEDS: LEVOTHYROXINE NA 50 MCG TABLET (FP) PO SCH (06:16)
[2017-10-28] MEDS: GABAPENTIN 300 MG CAPSULE (FP) PO SCH ×3 (06:16→22:07)
[2017-10-28] MEDS: ALBUTEROL SO4 2.5/IPRATROPIUM 0.5 INH SOL 3 ML VIAL.NEB. NEB SCH ×4 (08:00→21:30)
--- NOTE | 2017-10-28 08:36 | RAPID ---
Physical Examination Vital Signs: Vital Signs Temperature 97.1 F L 10/28/17 06:00 Pulse Rate 77 10/28/17 06:00 Respiratory Rate 20 10/28/17 06:00 Blood Pressure 110/46 10/28/17 06:00 O2 Sat by Pulse Oximetry (%) 96 10/28/17 07:00 Constitutional: Yes: Well Nourished, Anxious Eyes: Yes: WNL, Conjunctiva Clear HENT: Yes: WNL, Atraumatic, Normocephalic Neck: Yes: WNL, Supple, Trachea Midline, Other (No obvious fx's or step offs) Cardiovascular: Yes: WNL, Regular Rate and Rhythm, Tachycardia Respiratory: Yes: Other (upper airway congestion; trace wheezing) Gastrointestinal: Yes: WNL Musculoskeletal: Yes: WNL Extremities: Yes: WNL, Other (no trauma noted) Peripheral Pulses: Left Radial: 2+, Right Radial: 2+, Left Doralis Pedis: 2+, Right Dorsalis Pedis: 2+ Neurological: Yes: WNL, Alert, Oriented, Cran Nerves II-XII Intact, Other (5/5 strength in all extremites; Preseved sensation to light touch across all dermatomes) ...Motor Strength: WNL Labs: CBC, BMP 10/27/17 05:45 10/27/17 05:55 Rapid Response - Rapid Response Assessment: Rapid response called due to unwitnessed fall. Per nursing and pt report, pt was ambulating to bathroom without assistance to urinate. Reports coughing fit, sensation of lightheadness and palpitations. Endorses LOC and per nursing "a loud thud" was heard. Pt fell face-forward while exiting the bathroom. Upon entering room, pt A&Ox3, denying any pain, vision changes, gross deofrmities or numbness or weakness in any extremities. Pt unsure if she struck her head or not. Pt endorses feeling lightheaded and short of breath with occasional palpitations. PE as noted in report. Pulse ox 97% on room air. Blood sugar 300~ on finger stick. BP 160s/60-70s. No focal neuro deficits or trauma noted. Pt placed in hard C-collar and lifted with hard back brace into stretcher. CT head and C-spine ordered. Pt transported to radiology by covering nurse and NA. Pt on ASA and HSQ. No other AC. Recommendations: Fall protocol #1 CT head and spine Repeat EKG Bed rest Fall precautions Pulse Ox
[2017-10-28] MEDS ORDERED: PT OWN MED DRAWER 7, Y5N ONE ×2 (09:22→22:06)
[2017-10-28] MEDS: PHENYTOIN NA EXTENDED 100 MG CAPSULE (FP) PO SCH (09:49)
[2017-10-28] MEDS: LISINOPRIL 20 MG TABLET (FP) PO SCH (09:49)
[2017-10-28] MEDS: ASPIRIN 81 MG CHEWABLE TABLETS PO SCH ×2 (09:52→11:01)
[2017-10-28] MEDS: LORATADINE 10 MG TABLET PO SCH (09:52)
[2017-10-28] MEDS: HEPARIN NA (PORCINE) 5,000 UNITS/ML 1ML VIAL SQ SCH ×3 (09:52→22:00)
[2017-10-28] MEDS: predniSONE 20 MG TABLET (UD) PO SCH (09:53)
[2017-10-28] MEDS: FLUoxetine HCL 20 MG CAPSULE (FP) PO SCH (09:53)
[2017-10-28] MEDS: ACETAMINOPHEN 325 MG TABLET (FP) PO PRN ×2 (09:53→17:23)
[2017-10-28] MEDS: TOPIRAMATE PO SCH ×2 (09:54→22:07)
--- NOTE | 2017-10-28 10:25 | PN ---
Progress Note (short form) - Note Progress Note: Chief Complaint: Events noted, notes reviewed, rapid response this AM, patient claimed palpitations and near syncope after exiting the bathroom, complaining of persistent dyspnea and generalized discomfort including her chest History of Present Illness: Seen and examined on telemetry. Events noted, notes reviewed, rapid response this AM, patient claimed palpitations and near syncope after exiting the bathroom, complaining of persistent dyspnea and generalized discomfort including her chest Monitor reviewed sinus rhythm noted with evidence of VT or SVT or nola- arrhythmia Echocardiography 09/11/17 revealed normal LV size and function with no significant valvular pathology - Current Medication List Current Medications: Current Medications Acetaminophen (Tylenol -) 650 mg PO Q6H PRN PRN Reason: FEVER Last Admin: 10/28/17 09:53 Dose: 650 mg Albuterol/Ipratropium (Duoneb -) 1 amp NEB RQID [facility] Last Admin: 10/27/17 16:03 Dose: 1 amp Aspirin (Asa -) 81 mg PO DAILY [facility] Last Admin: 10/28/17 09:52 Dose: 81 mg Atorvastatin Calcium (Lipitor -) 20 mg PO HS [facility] Last Admin: 10/27/17 22:06 Dose: 20 mg Benzocaine/Menthol (Cepacol Lozenge -) 1 each MM PRN PRN PRN Reason: SORE THROAT Clonazepam (Klonopin -) 0.5 mg PO Q12H PRN PRN Reason: ANXIETY Last Admin: 10/27/17 22:06 Dose: 0.5 mg Ergocalciferol (Drisdol -) 50,000 unit PO Th@1000 [facility] Fluoxetine HCl (Prozac -) 40 mg PO DAILY [facility] Last Admin: 10/28/17 09:53 Dose: 40 mg Gabapentin (Neurontin -) 300 mg PO TID [facility] Last Admin: 10/28/17 06:16 Dose: 300 mg Guaifenesin (Diabetic Tussin Dm -) 10 ml PO Q4H PRN PRN Reason: COUGH Heparin Sodium (Porcine) (Heparin -) 5,000 unit SQ BID [facility] Last Admin: 10/28/17 09:52 Dose: 5,000 unit Insulin Aspart (Novolog Vial Sliding Scale -) 1 vial SQ ACHS [facility] PRN Reason: Protocol Last Admin: 10/28/17 06:14 Dose: 12 units Insulin Detemir (Levemir Vial) 15 units SQ BID@0700,2200 [facility] Last Admin: 10/28/17 06:13 Dose: 15 units Levothyroxine Sodium (Synthroid -) 50 mcg PO DAILY@0700 [facility] Last Admin: 10/28/17 06:16 Dose: 50 mcg Lisinopril (Prinivil) 40 mg PO DAILY [facility] Last Admin: 10/28/17 09:49 Dose: 40 mg Loratadine (Claritin -) 10 mg PO DAILY [facility] Last Admin: 10/28/17 09:52 Dose: 10 mg Ondansetron HCl (Zofran Injection) 4 mg IVPUSH Q6H PRN PRN Reason: NAUSEA Phenytoin Sodium (Dilantin -) 300 mg PO DAILY [facility] Last Admin: 10/28/17 09:49 Dose: 300 mg Prednisone (Deltasone -) 40 mg PO DAILY [facility] Last Admin: 10/28/17 09:53 Dose: 40 mg Topiramate 100 mg/ Topiramate (25 mg) 125 mg PO BID [facility] Last Admin: 10/28/17 09:54 Dose: 125 mg - Review of Systems Constitutional: denies: Chills, Fever Cardiovascular: as noted above Respiratory: reports: Cough but no Sputum Production Gastrointestinal: denies: Nausea, Vomiting, Diarrhea, Constipation or Abdominal Discomfort Musculoskeletal: reports: Generalized Pain Neurological: denies: Headache - Objective Vital Signs: Last Vital Signs Temp Pulse Resp BP Pulse Ox 97.5 F L 81 20 102/72 99 10/28/17 08:24 10/28/17 08:24 10/28/17 09:00 10/28/17 08:24 10/28/17 09:00 Intake & Output 10/25/17 10/26/17 10/27/17 10/28/17 23:59 23:59 23:59 23:59 Intake Total 800 800 Balance 800 800 Weight 232 lb 236 lb Constitutional: No Distress, Calm Neck: Supple Negative JVD No Bruit Cardiovascular: S1 S2 Regular Rate and Rhythm Respiratory: Bilateral Minimal Scattered Rhonchi Gastrointestinal: Soft Benign Normal Bowel Sounds Ext: Negative Edema Labs: CBC, BMP 10/27/17 05:45 10/27/17 05:55 Assessment/Plan ASSESSMENT: 1. Acute exacerbation of COPD, chronic bronchitis, resolving 2. Palpitations, near syncope with no evidence of sustained arrhythmia, probable orthostatic hypotension, sinus tachycardia, reactionary to above 3. Chest pain syndrome atypical for CAD angina pectoris 4. Diastolic LV dysfunction with class 0 NYHA classification LV failure 5. Hypertension 6. Diabetes mellitus 7. Hypercholesterolemia 8. Hypothyroidism 9. Probable obstructive sleep apnea 10. Anxiety disorder (severe) PLAN: 1. Continue Lisinopril but decrease dosage 2. If sinus tachycardia and palpitations persist despite resolution of the above noted pulmonary pathology recommend the addition of Cardizem CD or Bystolic therapy 3. Continue ASA 4. steroids and bronchodilators as per the primary team Catrina Scruggs MD
--- NOTE | 2017-10-28 10:41 | PN ---
Progress Note, Physician History of Present Illness: events noted fell this am - Current Medication List Current Medications: Active Medications Acetaminophen (Tylenol -) 650 mg PO Q6H PRN PRN Reason: FEVER Last Admin: 10/28/17 09:53 Dose: 650 mg Albuterol/Ipratropium (Duoneb -) 1 amp NEB RQID [facility] Last Admin: 10/27/17 16:03 Dose: 1 amp Aspirin (Asa -) 81 mg PO DAILY [facility] Last Admin: 10/28/17 09:52 Dose: 81 mg Atorvastatin Calcium (Lipitor -) 20 mg PO HS [facility] Last Admin: 10/27/17 22:06 Dose: 20 mg Benzocaine/Menthol (Cepacol Lozenge -) 1 each MM PRN PRN PRN Reason: SORE THROAT Clonazepam (Klonopin -) 0.5 mg PO Q12H PRN PRN Reason: ANXIETY Last Admin: 10/27/17 22:06 Dose: 0.5 mg Ergocalciferol (Drisdol -) 50,000 unit PO Th@1000 [facility] Fluoxetine HCl (Prozac -) 40 mg PO DAILY [facility] Last Admin: 10/28/17 09:53 Dose: 40 mg Gabapentin (Neurontin -) 300 mg PO TID [facility] Last Admin: 10/28/17 06:16 Dose: 300 mg Guaifenesin (Diabetic Tussin Dm -) 10 ml PO Q4H PRN PRN Reason: COUGH Heparin Sodium (Porcine) (Heparin -) 5,000 unit SQ BID [facility] Last Admin: 10/28/17 09:52 Dose: 5,000 unit Insulin Aspart (Novolog Vial Sliding Scale -) 1 vial SQ ACHS [facility] PRN Reason: Protocol Last Admin: 10/28/17 06:14 Dose: 12 units Insulin Detemir (Levemir Vial) 15 units SQ BID@0700,2200 [facility] Last Admin: 10/28/17 06:13 Dose: 15 units Levothyroxine Sodium (Synthroid -) 50 mcg PO DAILY@0700 [facility] Last Admin: 10/28/17 06:16 Dose: 50 mcg Lisinopril (Prinivil) 40 mg PO DAILY [facility] Last Admin: 10/28/17 09:49 Dose: 40 mg Loratadine (Claritin -) 10 mg PO DAILY [facility] Last Admin: 10/28/17 09:52 Dose: 10 mg Ondansetron HCl (Zofran Injection) 4 mg IVPUSH Q6H PRN PRN Reason: NAUSEA Phenytoin Sodium (Dilantin -) 300 mg PO DAILY [facility] Last Admin: 10/28/17 09:49 Dose: 300 mg Prednisone (Deltasone -) 40 mg PO DAILY [facility] Last Admin: 10/28/17 09:53 Dose: 40 mg Topiramate 100 mg/ Topiramate (25 mg) 125 mg PO BID [facility] Last Admin: 10/28/17 09:54 Dose: 125 mg - Objective Vital Signs: Vital Signs Temperature 97.5 F L 10/28/17 08:24 Pulse Rate 81 10/28/17 08:24 Respiratory Rate 20 10/28/17 09:00 Blood Pressure 102/72 10/28/17 08:24 O2 Sat by Pulse Oximetry (%) 99 10/28/17 09:00 Cardiovascular: Yes: Regular Rate and Rhythm Respiratory: Yes: Regular, CTA Bilaterally Gastrointestinal: Yes: Normal Bowel Sounds, Soft. No: Tenderness Neurological: Yes: Alert, Oriented, Weakness Labs: CBC, BMP 10/27/17 05:45 10/27/17 05:55 Assessment/Plan - Problems (1) Dyspnea Assessment/Plan: -pulmonary consult -Nasal O2 -Steroids -Robitussin -bronchodilators -CXR unremarkable Code(s): R06.00 - DYSPNEA, UNSPECIFIED (2) Anxiety Assessment/Plan: -Ativan IV 1 dose given -Clonazepam po outpatient dose Code(s): F41.9 - ANXIETY DISORDER, UNSPECIFIED (3) Diabetes mellitus, insulin dependent (IDDM), uncontrolled Assessment/Plan: -endocrinology consult -BGM -Diabetic diet -Insulin: novolog and levemir -RD consult Code(s): E10.65 - TYPE 1 DIABETES MELLITUS WITH HYPERGLYCEMIA Qualifiers: Diabetes mellitus complication status: without complication Qualified Code( s): E10.65 - Type 1 diabetes mellitus with hyperglycemia (4) Tachycardia Assessment/Plan: -Tele -Cardiology consult -Metoprolol 5 mg IVP x 1 given -repeat EKG -2/2 anxiety and nebulizer treatments Code(s): R00.0 - TACHYCARDIA, UNSPECIFIED (5) Syncope Assessment/Plan: -Tele -Cardio and neuro -labs
[2017-10-28] MEDS ORDERED: LISINOPRIL 20 MG TABLET (FP) PO SCH (11:01)
[2017-10-28 11:33] LABS: BASO % 0.6 % (0-2.0); EOS % 1.3 % (0-4.5); HEMATOCRIT 36.3 % (32.4-45.2); HEMOGLOBIN 11.8 GM/dL (10.7-15.3); LYMPH % 28.3 % (8-40); MCH 25.9 pg (25.7-33.7); MCHC 32.5 g/dl (32.0-36.0); MEAN CELL VOLUME 79.8 fl (80-96); MEAN PLT VOLUME 9.3 fl (7.5-11.1); MONO % 5.8 % (3.8-10.2); PLATELET COUNT 252 K/MM3 (134-434); RBC 4.55 M/mm3 (3.60-5.2); RDW 15.6 % (11.6-15.6); WHITE BLOOD COUNT 11.3 K/mm3 (4.0-10.0)
[2017-10-28 11:38] LABS: ALBUMIN 3.5 g/dl (3.4-5.0); ANION GAP -8 (8-16); BILIRUBIN,TOTAL 0.2 mg/dL (0.2-1.0); BLOOD UREA NITROGEN 22 mg/dL (7-18); CALCIUM 8.3 mg/dL (8.5-10.1); CHLORIDE 112 mmol/L (98-107); CO2 28 mmol/L (21-32); CREATININE 1.2 mg/dL (0.55-1.02); MAGNESIUM 1.9 mg/dL (1.8-2.4); POTASSIUM 3.5 mmol/L (3.5-5.1); SGOT/AST 24 U/L (15-37); SGPT/ALT 28 U/L (12-78); SODIUM 132 mmol/L (136-145); TOT PROT 7.6 g/dl (6.4-8.2)
[2017-10-28 11:47] LABS: ALK PHOS 87 U/L (45-117)
[2017-10-28] MEDS ORDERED: INSULIN (NOVOLOG) ASPART 100 UNITS/ML 10ML VIAL ONE ×2 (12:09→17:46)
[2017-10-28 12:18] LABS: GLUCOSE,RANDOM 323 mg/dL (74-106)
--- NOTE | 2017-10-28 14:45 | PN ---
Progress Note (short form) - Note Progress Note: PULMONARY Still short of breath with chest tightness, nonproductive cough and wheezing. Last Vital Signs Temp Pulse Resp BP Pulse Ox 98.5 F 91 H 18 106/72 99 10/28/17 12:24 10/28/17 12:24 10/28/17 12:24 10/28/17 12:24 10/28/17 09:00 Gen: NAD at rest Heart: RRR Lung: distant breath sounds, poor air entry Abd: soft, nontender Ext: no edema CBC, BMP 10/28/17 10:50 10/28/17 10:50 Active Medications Acetaminophen (Tylenol -) 650 mg PO Q6H PRN PRN Reason: FEVER Last Admin: 10/28/17 09:53 Dose: 650 mg Albuterol/Ipratropium (Duoneb -) 1 amp NEB RQID [facility] Last Admin: 10/28/17 12:49 Dose: 1 amp Aspirin (Asa -) 81 mg PO DAILY [facility] Last Admin: 10/27/17 10:00 Dose: 81 mg Atorvastatin Calcium (Lipitor -) 20 mg PO HS [facility] Last Admin: 10/27/17 22:06 Dose: 20 mg Benzocaine/Menthol (Cepacol Lozenge -) 1 each MM PRN PRN PRN Reason: SORE THROAT Clonazepam (Klonopin -) 0.5 mg PO Q12H PRN PRN Reason: ANXIETY Last Admin: 10/27/17 22:06 Dose: 0.5 mg Ergocalciferol (Drisdol -) 50,000 unit PO Th@1000 [facility] Fluoxetine HCl (Prozac -) 40 mg PO DAILY [facility] Last Admin: 10/28/17 09:53 Dose: 40 mg Gabapentin (Neurontin -) 300 mg PO TID [facility] Last Admin: 10/28/17 06:16 Dose: 300 mg Guaifenesin (Diabetic Tussin Dm -) 10 ml PO Q4H PRN PRN Reason: COUGH Heparin Sodium (Porcine) (Heparin -) 5,000 unit SQ BID [facility] Last Admin: 10/27/17 22:06 Dose: 5,000 unit Insulin Aspart (Novolog Vial Sliding Scale -) 1 vial SQ ACHS [facility] PRN Reason: Protocol Last Admin: 10/28/17 12:12 Dose: 10 units Insulin Detemir (Levemir Vial) 15 units SQ BID@0700,2200 [facility] Last Admin: 10/28/17 06:13 Dose: 15 units Levothyroxine Sodium (Synthroid -) 50 mcg PO DAILY@0700 [facility] Last Admin: 10/28/17 06:16 Dose: 50 mcg Lisinopril (Prinivil) 20 mg PO DAILY [facility] Loratadine (Claritin -) 10 mg PO DAILY [facility] Last Admin: 10/28/17 09:52 Dose: 10 mg Ondansetron HCl (Zofran Injection) 4 mg IVPUSH Q6H PRN PRN Reason: NAUSEA Phenytoin Sodium (Dilantin -) 300 mg PO DAILY [facility] Last Admin: 10/28/17 09:49 Dose: 300 mg Prednisone (Deltasone -) 40 mg PO DAILY [facility] Last Admin: 10/28/17 09:53 Dose: 40 mg Topiramate 100 mg/ Topiramate (25 mg) 125 mg PO BID [facility] Last Admin: 10/28/17 09:54 Dose: 125 mg A/P Acute COPD Exacerbation LV Diastolic Dysfunction HTN DM Hypercholesterolemia Hypothyroidism Morbid Obesity Likely MARILU - will change steroids to IV - inhaled bronchodilators - O2 to keep SpO2 >90% - glucose control while on systemic steroids - DVT prophylaxis - will need outpt PFTs, PSG
--- NOTE | 2017-10-28 15:15 | CON.NEURO ---
Consult Consult Specialty:: NEUROLOGY-MARYANN MENDOZA Reason for Consultation:: Near syncope - History of Present Illness History of Present Illness: 2 year old female with a history of diabetes, hypothyroid, HTN, asthma, COPD, sleep apnea, depression/anxiety, CVA (2014) with L sided weakness presents to the hospital for 3 day history of dry cough and shortness of breath. She states that she went to Dr. Hugo's office and took symbicort there without any alleviation of her symptoms, after which she was brought to the hospital. Patient states that she started feeling this cough and SOB simultaneously 3 days ago. Cough is non-productive but the patient states that she feels congested in her chest. She also reports mild left upper quadrant abdominal pain and believes its due to her coughing. Additionally reports nausea but no vomiting. Her children are currently sick with an upper respiratory infection. Denies chest pain, vomiting, headache, fevers, chills. Patient states that she has been hospitalized previously for COPD and has not been intubated before. She has a history of sleep apnea for which she used to use CPAP but then stopped. -Events noted, notes reviewed, rapid response this AM, patient claimed palpitations and near syncope after exiting the bathroom, complaining of persistent dyspnea and generalized discomfort including her chest. Denies movements, she says she was"out for a few seconds" but nurses did not witness this, she feels she did not have a seizure. 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 Cardio/Vascular: Yes: CAD, HTN, Hyperlipdemia Pulmonary: Yes: Sleep Apnea ...LMP: 10/27/17 ...: No Infectious Disease: Yes: Other (Hep C) Psych: Yes: Anxiety, Bipolar Endocrine: Yes: Diabetes Mellitus - Past Surgical History Past Surgical History: Yes: - Alcohol/Substance Use Hx Alcohol Use: No - Smoking History Smoking history: Former smoker Have you smoked in the past 12 months: No If you are a former smoker, when did you quit?: 2014 - Social History Usual Living Arrangement: Alone ADL: Independent History of Recent Travel: No Home Medications - Allergies Allergies/Adverse Reactions: Allergies Allergy/AdvReac Type Severity Reaction Status Date / Time Iodinated Contrast- Oral and Allergy Intermediate Itching Verified 09/26/17 17: 12 IV Dye [Iodinated Contrast Media - IV Dye] azithromycin AdvReac Intermediate Itching Verified 10/27/17 06:39 tramadol AdvReac Verified 09/26/17 17:12 - Home Medications Home Medications: Ambulatory Orders Fluoxetine HCl [Prozac -] 40 mg PO DAILY 09/15/14 Gabapentin [Neurontin -] 600 mg PO QID 09/15/14 [place]-3 Fatty Acids [[place]-3] 1,000 mg PO BID 09/15/14 Albuterol Sulfate Inhaler - [Ventolin HFA Inhaler -] 1 - 2 inh PO QID 03/15/16 Insulin Glargine,Hum.rec.anlog [Lantus Solostar PEN -] 50 units SQ AM 03/15/17 Liraglutide [Victoza -] 1.8 mg SQ DAILY@1200 03/15/17 clonazePAM [Klonopin -] 0.5 mg PO BID PRN 05/12/17 Meclizine HCl [Antivert -] 12.5 mg PO Q6H PRN #20 tablet 06/27/17 Aspirin 81 mg PO DAILY 08/15/17 Ergocalciferol (Vitamin D2) [Vitamin D2] 50,000 units PO WEEKLY 08/15/17 Levothyroxine [Synthroid -] 50 mcg PO DAILY 08/15/17 Topiramate [Topamax] 150 mg PO BID 30 Days #60 tablet 08/15/17 Atorvastatin Ca [Lipitor] 20 mg PO HS 09/09/17 Insulin (LOG) Aspart [NovoLOG -] 15 units SQ TID 09/09/17 Tiotropium [place] [Spiriva] 1 inh PO DAILY 09/09/17 Insulin (Levemir) [Levemir Vial] 15 units SQ HS #10 ml 09/11/17 Loratadine [Claritin] 10 mg PO DAILY 09/11/17 Phenytoin Na Extended [Dilantin -] 300 mg PO DAILY #12 capsule 09/26/17 Hydrocodone/Acetaminophen [Hydrocodone-Acetamin 10-325 mg] 1 each PO BID PRN # 60 tablet MDD 2 09/29/17 Family Disease History - Family Disease History Family Disease History: Diabetes: Mother (,), Brother (one living - etoh ), Sister (two living - ), Heart Disease: Father (living, no contact,etoh), Sister, Respiratory: Father, Other: Father, Mother, Brother, Sister, Daughter ( one with etoh) Physical Exam-Neuro Vital Signs: Vital Signs Temperature 97.9 F 10/28/17 14:00 Pulse Rate 90 10/28/17 14:00 Respiratory Rate 18 10/28/17 14:00 Blood Pressure 120/84 10/28/17 14:00 O2 Sat by Pulse Oximetry (%) 99 10/28/17 09:00 Labs: CBC, BMP 10/28/17 10:50 10/28/17 10:50 - Neuro Exam Eyes: Yes: PERRL Speech: WNL Dominant Hand: Right Mini Mental Exam: normal Cranial Nerves II-XII Intact: Yes Gag: Present DTR's: 2+ Left Bicep, 2+ Right Bicep, 2+ Left Tricep, 2+ Right Tricep, 2+ Left Brachioradialis, 2+ Right Brachioradialis, 2+ Left Achilles, 2+ Right Achilles Motor Strength: 5/5: Left Arm, Right Arm, Left Leg, Right Leg Gait: Normal Imaging - Results Cat Scan: Report Reviewed (Withouit acuter abn.) Assessment/Plan Pt. with sz. d/o, this current event appears to have been pre-syncope/syncope( doubt she lost consciousness) likely due to orthostasis. Would cont current AED regimen, rest of management ongoing/per cardiology.
[2017-10-28] MEDS ORDERED: INSULIN (NOVOLOG) ASPART 100 UNITS/ML 10ML VIAL SQ ONE (17:45)
--- NOTE | 2017-10-28 17:45 | EKG ---
Test Reason : Blood Pressure : / mmHG Vent. Rate : 078 BPM Atrial Rate : 078 BPM P-R Int : 154 ms QRS Dur : 096 ms QT Int : 390 ms P-R-T Axes : 051 -25 035 degrees QTc Int : 444 ms NORMAL SINUS RHYTHM NORMAL ECG WHEN COMPARED WITH ECG OF 27-OCT-2017 11:49, NO SIGNIFICANT CHANGE WAS FOUND Confirmed by MD CANDIDA, JENNIFER ([id number]) on 10/28/2017 5:44:49 PM Referred By: Jonas OROPEZA Confirmed By:JENNIFER TIRADO MD
--- NOTE | 2017-10-28 18:12 | CON.NEP ---
Consult Consult Specialty:: nephrology Referred by:: mark izaguirre Reason for Consultation:: azotemia francisco - History of Present Illness Chief Complaint: azotemia History of Present Illness: 52 year old female with a history of diabetes, hypothyroid, HTN, asthma, COPD, sleep apnea, depression/ anxiety, CVA (2014) with L sided weakness admitted with sob and chest congestion x 3 days afebrile no leg edema noted to have new azotemia she was told a few months ago that she had a problem with kidneys because of dehydration she did not understand everything they told her about that she had a normal sono of kidneys and bladder in aug 2017 - History Source History Provided By: Patient Limitations to Obtaining History: Language Barrier - 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, 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, 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 Cardio/Vascular: Yes: CAD, HTN, Hyperlipdemia Pulmonary: Yes: Sleep Apnea ...LMP: 10/27/17 ...: No Infectious Disease: Yes: Other (Hep C) Psych: Yes: Anxiety, Bipolar Endocrine: Yes: Diabetes Mellitus - Past Surgical History Past Surgical History: Yes: - Alcohol/Substance Use Hx Alcohol Use: No - Smoking History Smoking history: Former smoker Have you smoked in the past 12 months: No If you are a former smoker, when did you quit?: 2014 - Social History Usual Living Arrangement: Alone ADL: Independent History of Recent Travel: No Home Medications - Allergies Allergies/Adverse Reactions: Allergies Allergy/AdvReac Type Severity Reaction Status Date / Time Iodinated Contrast- Oral and Allergy Intermediate Itching Verified 09/26/17 17: 12 IV Dye [Iodinated Contrast Media - IV Dye] azithromycin AdvReac Intermediate Itching Verified 10/27/17 06:39 tramadol AdvReac Verified 09/26/17 17:12 - Home Medications Home Medications: Ambulatory Orders Fluoxetine HCl [Prozac -] 40 mg PO DAILY 09/15/14 Gabapentin [Neurontin -] 600 mg PO QID 09/15/14 [place]-3 Fatty Acids [[place]-3] 1,000 mg PO BID 09/15/14 Albuterol Sulfate Inhaler - [Ventolin HFA Inhaler -] 1 - 2 inh PO QID 03/15/16 Insulin Glargine,Hum.rec.anlog [Lantus Solostar PEN -] 50 units SQ AM 03/15/17 Liraglutide [Victoza -] 1.8 mg SQ DAILY@1200 03/15/17 clonazePAM [Klonopin -] 0.5 mg PO BID PRN 05/12/17 Meclizine HCl [Antivert -] 12.5 mg PO Q6H PRN #20 tablet 06/27/17 Aspirin 81 mg PO DAILY 08/15/17 Ergocalciferol (Vitamin D2) [Vitamin D2] 50,000 units PO WEEKLY 08/15/17 Levothyroxine [Synthroid -] 50 mcg PO DAILY 08/15/17 Topiramate [Topamax] 150 mg PO BID 30 Days #60 tablet 08/15/17 Atorvastatin Ca [Lipitor] 20 mg PO HS 09/09/17 Insulin (LOG) Aspart [NovoLOG -] 15 units SQ TID 09/09/17 Tiotropium [place] [Spiriva] 1 inh PO DAILY 09/09/17 Insulin (Levemir) [Levemir Vial] 15 units SQ HS #10 ml 09/11/17 Loratadine [Claritin] 10 mg PO DAILY 09/11/17 Phenytoin Na Extended [Dilantin -] 300 mg PO DAILY #12 capsule 09/26/17 Hydrocodone/Acetaminophen [Hydrocodone-Acetamin 10-325 mg] 1 each PO BID PRN # 60 tablet MDD 2 09/29/17 Family Disease History - Family Disease History Family Disease History: Diabetes: Mother (,), Brother (one living - etoh ), Sister (two living - ), Heart Disease: Father (living, no contact,etoh), Sister, Respiratory: Father, Other: Father, Mother, Brother, Sister, Daughter ( one with etoh) Nephrology Consult - Height Height: 4 ft 11 in - Weight Weight: 236 lb - BMI Body Mass Index (BMI): 47.6 - Lab Results CBC,BMP: CBC, BMP 10/28/17 10:50 10/28/17 10:50 Anion Gap: Anion Gap Anion Gap -8 (8-16) L 10/28/17 10:50 - Physical Examination Vital Signs: Vital Signs Temperature 97.9 F 10/28/17 16:24 Pulse Rate 90 10/28/17 16:24 Respiratory Rate 18 10/28/17 16:24 Blood Pressure 120/84 10/28/17 16:24 O2 Sat by Pulse Oximetry (%) 99 10/28/17 15:00 Constitutional: Yes: Anxious, Obese Eyes: Yes: WNL, Conjunctiva Clear, EOM Intact HENT: Yes: WNL, Atraumatic, Normocephalic Neck: Yes: WNL, Supple, Trachea Midline Cardiovascular: Yes: WNL, Regular Rate and Rhythm Respiratory: Yes: WNL, Regular, CTA Bilaterally Gastrointestinal: Yes: WNL, Normal Bowel Sounds Renal/: Yes: WNL Musculoskeletal: Yes: WNL Extremities: Yes: WNL Edema: No Peripheral Pulses WNL: Yes Integumentary: Yes: WNL Neurological: Yes: WNL, Alert, Oriented Psychiatric: Yes: WNL, Alert, Oriented Assessment/Plan acute resp distress/asthma/copd francisco probably prerenal 2/2 hyperglycemia and osmotic diuresis chf unlikely normal kiney and bladder sono in aug 2017 will start IVF repeat urine studies
[2017-10-28] MEDS: ATORVASTATIN CA 20 MG TABLET (FP) PO SCH (22:07)
[2017-10-28] MEDS: POTASSIUM CHLORIDE 10 MEQ in SODIUM CHLORIDE 1,000 ML IVPB SCH (22:08)
[2017-10-28] MEDS: clonazePAM 0.5 MG TABLET PO PRN (22:14)
[2017-10-29 01:17] LABS: URINE APPEARANCE CLEAR; URINE BILIRUBIN NEGATIVE (<2.0 mg/dL); URINE BLOOD 1+ (NEGATIVE); URINE COLOR STRAW; URINE GLUCOSE (UA) 3+ (NEGATIVE); URINE KETONE NEGATIVE (NEGATIVE); URINE LEUK ESTERASE NEGATIVE (NEGATIVE); URINE NITRITE NEGATIVE (NEGATIVE); URINE PROTEIN NEGATIVE (NEGATIVE); URINE UROBILINOGEN NEGATIVE mg/dL (0.2-1.0)
[2017-10-29 01:26] LABS: EPI CELLS RARE /HPF (FEW)
[2017-10-29] MEDS: INSULIN SLIDING SCALE (NOVOLOG) 1 VIAL SQ SCH ×4 (06:26→21:09)
[2017-10-29] MEDS: INSULIN DETEMIR 100 UNITS/ML MDV SQ SCH ×2 (06:27→21:09)
[2017-10-29] MEDS: GABAPENTIN 300 MG CAPSULE (FP) PO SCH ×3 (06:29→21:09)
[2017-10-29] MEDS: LEVOTHYROXINE NA 50 MCG TABLET (FP) PO SCH (06:29)
[2017-10-29 06:59] LABS: BASO % 0.5 % (0-2.0); EOS % 1.5 % (0-4.5); HEMATOCRIT 36.6 % (32.4-45.2); HEMOGLOBIN 11.9 GM/dL (10.7-15.3); LYMPH % 28.5 % (8-40); MCHC 32.4 g/dl (32.0-36.0); MEAN CELL VOLUME 80.1 fl (80-96); MEAN PLT VOLUME 9.6 fl (7.5-11.1); MONO % 6.9 % (3.8-10.2); NEUT % 62.6 % (42.8-82.8); PLATELET COUNT 241 K/MM3 (134-434); RBC 4.57 M/mm3 (3.60-5.2); RDW 15.7 % (11.6-15.6); WHITE BLOOD COUNT 12.1 K/mm3 (4.0-10.0)
[2017-10-29 07:34] LABS: ALBUMIN 3.4 g/dl (3.4-5.0); ANION GAP 6 (8-16); BLOOD UREA NITROGEN 20 mg/dL (7-18); CALCIUM 8.5 mg/dL (8.5-10.1); CHLORIDE 108 mmol/L (98-107); CO2 25 mmol/L (21-32); GLUCOSE,RANDOM 193 mg/dL (74-106); POTASSIUM 4.3 mmol/L (3.5-5.1); SODIUM 139 mmol/L (136-145)
[2017-10-29 07:39] LABS: ALK PHOS 79 U/L (45-117); BILIRUBIN,TOTAL < 0.1 mg/dL (0.2-1.0); SGOT/AST 14 U/L (15-37); SGPT/ALT 26 U/L (12-78); TOT PROT 7.3 g/dl (6.4-8.2)
[2017-10-29] MEDS: ALBUTEROL SO4 2.5/IPRATROPIUM 0.5 INH SOL 3 ML VIAL.NEB. NEB SCH ×4 (08:55→20:00)
--- NOTE | 2017-10-29 09:19 | PN ---
Progress Note, Physician - Current Medication List Current Medications: Active Medications Acetaminophen (Tylenol -) 650 mg PO Q6H PRN PRN Reason: FEVER Last Admin: 10/28/17 17:23 Dose: 650 mg Albuterol/Ipratropium (Duoneb -) 1 amp NEB RQID [facility] Last Admin: 10/28/17 21:30 Dose: 1 amp Aspirin (Asa -) 81 mg PO DAILY [facility] Last Admin: 10/28/17 11:01 Dose: 81 mg Atorvastatin Calcium (Lipitor -) 20 mg PO HS [facility] Last Admin: 10/28/17 22:07 Dose: 20 mg Benzocaine/Menthol (Cepacol Lozenge -) 1 each MM PRN PRN PRN Reason: SORE THROAT Clonazepam (Klonopin -) 0.5 mg PO Q12H PRN PRN Reason: ANXIETY Last Admin: 10/28/17 22:14 Dose: 0.5 mg Ergocalciferol (Drisdol -) 50,000 unit PO Th@1000 [facility] Fluoxetine HCl (Prozac -) 40 mg PO DAILY [facility] Last Admin: 10/28/17 09:53 Dose: 40 mg Gabapentin (Neurontin -) 300 mg PO TID [facility] Last Admin: 10/29/17 06:29 Dose: 300 mg Guaifenesin (Diabetic Tussin Dm -) 10 ml PO Q4H PRN PRN Reason: COUGH Heparin Sodium (Porcine) (Heparin -) 5,000 unit SQ BID [facility] Last Admin: 10/28/17 22:00 Dose: 5,000 unit Potassium Chloride 10 meq/ (Sodium Chloride) 1,005 mls @ 75 mls/hr IVPB Q13H [facility] Last Admin: 10/28/17 22:08 Dose: 75 mls/hr Insulin Aspart (Novolog Vial Sliding Scale -) 1 vial SQ ACHS [facility] PRN Reason: Protocol Last Admin: 10/29/17 06:26 Dose: 6 units Insulin Detemir (Levemir Vial) 20 units SQ BID@0700,2200 [facility] Last Admin: 10/29/17 06:27 Dose: 20 units Levothyroxine Sodium (Synthroid -) 50 mcg PO DAILY@0700 [facility] Last Admin: 10/29/17 06:29 Dose: 50 mcg Lisinopril (Prinivil) 20 mg PO DAILY [facility] Loratadine (Claritin -) 10 mg PO DAILY [facility] Last Admin: 10/28/17 09:52 Dose: 10 mg Ondansetron HCl (Zofran Injection) 4 mg IVPUSH Q6H PRN PRN Reason: NAUSEA Phenytoin Sodium (Dilantin -) 300 mg PO DAILY [facility] Last Admin: 10/28/17 09:49 Dose: 300 mg Prednisone (Deltasone -) 40 mg PO DAILY [facility] Last Admin: 10/28/17 09:53 Dose: 40 mg Topiramate 100 mg/ Topiramate (25 mg) 125 mg PO BID [facility] Last Admin: 10/28/17 22:07 Dose: 125 mg - Objective Vital Signs: Vital Signs Temperature 98.0 F 10/29/17 07:42 Pulse Rate 103 H 10/29/17 07:42 Respiratory Rate 16 10/29/17 07:52 Blood Pressure 132/75 10/29/17 07:42 O2 Sat by Pulse Oximetry (%) 97 10/29/17 07:52 Cardiovascular: Yes: S1, S2 Respiratory: Yes: Regular, CTA Bilaterally Gastrointestinal: Yes: Normal Bowel Sounds, Soft Labs: CBC, BMP 10/29/17 06:30 10/29/17 06:30 Assessment/Plan - Problems (1) Dyspnea Assessment/Plan: -pulmonary consult -Nasal O2 -Steroids -Robitussin -bronchodilators -CXR unremarkable Code(s): R06.00 - DYSPNEA, UNSPECIFIED (2) Anxiety Assessment/Plan: -Ativan IV 1 dose given -Clonazepam po outpatient dose Code(s): F41.9 - ANXIETY DISORDER, UNSPECIFIED (3) Diabetes mellitus, insulin dependent (IDDM), uncontrolled Assessment/Plan: -endocrinology consult -BGM -Diabetic diet -Insulin: novolog and levemir -RD consult Code(s): E10.65 - TYPE 1 DIABETES MELLITUS WITH HYPERGLYCEMIA Qualifiers: Diabetes mellitus complication status: without complication Qualified Code( s): E10.65 - Type 1 diabetes mellitus with hyperglycemia (4) Tachycardia Assessment/Plan: -Tele -Cardiology consult -Metoprolol 5 mg IVP x 1 given -repeat EKG -2/2 anxiety and nebulizer treatments Code(s): R00.0 - TACHYCARDIA, UNSPECIFIED (5) Syncope Assessment/Plan: -Tele -Cardio and neuro -labs
[2017-10-29] MEDS: HEPARIN NA (PORCINE) 5,000 UNITS/ML 1ML VIAL SQ SCH ×2 (09:22→21:08)
[2017-10-29] MEDS: predniSONE 20 MG TABLET (UD) PO SCH (09:22)
[2017-10-29] MEDS: LORATADINE 10 MG TABLET PO SCH (09:23)
[2017-10-29] MEDS: ASPIRIN 81 MG CHEWABLE TABLETS PO SCH (09:23)
[2017-10-29] MEDS: FLUoxetine HCL 20 MG CAPSULE (FP) PO SCH (09:23)
[2017-10-29] MEDS: PHENYTOIN NA EXTENDED 100 MG CAPSULE (FP) PO SCH (09:24)
[2017-10-29] MEDS: LISINOPRIL 10 MG TABLET (FP) PO SCH (09:25)
[2017-10-29] MEDS: TOPIRAMATE PO SCH ×2 (09:25→21:10)
[2017-10-29] MEDS: POTASSIUM CHLORIDE 10 MEQ in SODIUM CHLORIDE 1,000 ML IVPB SCH ×2 (09:26→21:08)
--- NOTE | 2017-10-29 11:36 | PN ---
Progress Note (short form) - Note Progress Note: Chief Complaint: Events noted, notes reviewed, palpitations resolved, complaining of persistent dyspnea although severity has decreased History of Present Illness: Seen and examined on telemetry. Events noted, notes reviewed, palpitations resolved, complaining of persistent dyspnea although severity has decreased Echocardiography 09/11/17 revealed normal LV size and function with no significant valvular pathology - Current Medication List Current Medications: Current Medications Acetaminophen (Tylenol -) 650 mg PO Q6H PRN PRN Reason: FEVER Last Admin: 10/28/17 17:23 Dose: 650 mg Albuterol/Ipratropium (Duoneb -) 1 amp NEB RQID [facility] Last Admin: 10/29/17 08:55 Dose: 1 amp Aspirin (Asa -) 81 mg PO DAILY [facility] Last Admin: 10/29/17 09:23 Dose: 81 mg Atorvastatin Calcium (Lipitor -) 20 mg PO HS [facility] Last Admin: 10/28/17 22:07 Dose: 20 mg Benzocaine/Menthol (Cepacol Lozenge -) 1 each MM PRN PRN PRN Reason: SORE THROAT Clonazepam (Klonopin -) 0.5 mg PO Q12H PRN PRN Reason: ANXIETY Last Admin: 10/28/17 22:14 Dose: 0.5 mg Ergocalciferol (Drisdol -) 50,000 unit PO Th@1000 [facility] Fluoxetine HCl (Prozac -) 40 mg PO DAILY [facility] Last Admin: 10/29/17 09:23 Dose: 40 mg Gabapentin (Neurontin -) 300 mg PO TID [facility] Last Admin: 10/29/17 06:29 Dose: 300 mg Guaifenesin (Diabetic Tussin Dm -) 10 ml PO Q4H PRN PRN Reason: COUGH Heparin Sodium (Porcine) (Heparin -) 5,000 unit SQ BID [facility] Last Admin: 10/29/17 09:22 Dose: 5,000 unit Potassium Chloride 10 meq/ (Sodium Chloride) 1,005 mls @ 75 mls/hr IVPB Q13H [facility] Last Admin: 10/29/17 09:26 Dose: 75 mls/hr Insulin Aspart (Novolog Vial Sliding Scale -) 1 vial SQ ACHS [facility] PRN Reason: Protocol Last Admin: 10/29/17 06:26 Dose: 6 units Insulin Detemir (Levemir Vial) 20 units SQ BID@0700,2200 [facility] Last Admin: 10/29/17 06:27 Dose: 20 units Levothyroxine Sodium (Synthroid -) 50 mcg PO DAILY@0700 [facility] Last Admin: 10/29/17 06:29 Dose: 50 mcg Lisinopril (Prinivil) 20 mg PO DAILY [facility] Last Admin: 10/29/17 09:25 Dose: 20 mg Loratadine (Claritin -) 10 mg PO DAILY [facility] Last Admin: 10/29/17 09:23 Dose: 10 mg Ondansetron HCl (Zofran Injection) 4 mg IVPUSH Q6H PRN PRN Reason: NAUSEA Phenytoin Sodium (Dilantin -) 300 mg PO DAILY [facility] Last Admin: 10/29/17 09:24 Dose: 300 mg Prednisone (Deltasone -) 40 mg PO DAILY [facility] Last Admin: 10/29/17 09:22 Dose: 40 mg Topiramate 100 mg/ Topiramate (25 mg) 125 mg PO BID [facility] Last Admin: 10/29/17 09:25 Dose: 125 mg - Review of Systems Constitutional: denies: Chills, Fever Cardiovascular: as noted above Respiratory: reports: Cough but no Sputum Production Gastrointestinal: denies: Nausea, Vomiting, Diarrhea, Constipation or Abdominal Discomfort Musculoskeletal: reports: Generalized Pain Neurological: denies: Headache - Objective Vital Signs: Last Vital Signs Temp Pulse Resp BP Pulse Ox 98.0 F 103 H 16 132/75 97 10/29/17 07:42 10/29/17 07:42 10/29/17 07:52 10/29/17 07:42 10/29/17 07:52 Intake & Output 10/26/17 10/27/17 10/28/17 10/29/17 23:59 23:59 23:59 23:59 Intake Total 800 1940 750 Balance 800 1940 750 Weight 232 lb 236 lb 236 lb Constitutional: No Distress, Calm Neck: Supple Negative JVD No Bruit Cardiovascular: S1 S2 Regular Rate and Rhythm Respiratory: Bilateral Minimal Scattered Rhonchi Gastrointestinal: Soft Benign Normal Bowel Sounds Ext: Negative Edema Labs: CBC, BMP 10/29/17 06:30 10/29/17 06:30 Assessment/Plan ASSESSMENT: 1. Acute exacerbation of COPD, chronic bronchitis, resolving 2. Palpitations, near syncope with no evidence of sustained arrhythmia, probable orthostatic hypotension 3. Sinus tachycardia, reactionary to above 4. Chest pain syndrome atypical for CAD angina pectoris 5. Diastolic LV dysfunction with class 0 NYHA classification LV failure 6. Hypertension 7. Diabetes mellitus 8. Hypercholesterolemia 9. Hypothyroidism 10. Probable obstructive sleep apnea 11. Anxiety disorder (severe) PLAN: 1. Continue Lisinopril 2. As outlined if sinus tachycardia and palpitations persist despite resolution of the above noted pulmonary pathology recommend the addition of Cardizem CD or Bystolic therapy 3. Continue ASA 4. steroids and bronchodilators as per the primary team Catrina Scruggs MD
--- NOTE | 2017-10-29 13:04 | PN ---
Progress Note (short form) - Note Progress Note: PULMONARY Breathing better today. Less cough and wheezing. Last Vital Signs Temp Pulse Resp BP Pulse Ox 98.0 F 103 H 16 132/75 97 10/29/17 07:42 10/29/17 07:42 10/29/17 07:52 10/29/17 07:42 10/29/17 07:52 Gen: NAD at rest Heart: RRR Lung: distant breath sounds, poor air entry Abd: soft, nontender Ext: no edema CBC, BMP 10/29/17 06:30 10/29/17 06:30 Active Medications Acetaminophen (Tylenol -) 650 mg PO Q6H PRN PRN Reason: FEVER Last Admin: 10/28/17 17:23 Dose: 650 mg Albuterol/Ipratropium (Duoneb -) 1 amp NEB RQID [facility] Last Admin: 10/29/17 08:55 Dose: 1 amp Aspirin (Asa -) 81 mg PO DAILY [facility] Last Admin: 10/29/17 09:23 Dose: 81 mg Atorvastatin Calcium (Lipitor -) 20 mg PO HS [facility] Last Admin: 10/28/17 22:07 Dose: 20 mg Benzocaine/Menthol (Cepacol Lozenge -) 1 each MM PRN PRN PRN Reason: SORE THROAT Clonazepam (Klonopin -) 0.5 mg PO Q12H PRN PRN Reason: ANXIETY Last Admin: 10/28/17 22:14 Dose: 0.5 mg Ergocalciferol (Drisdol -) 50,000 unit PO Th@1000 [facility] Fluoxetine HCl (Prozac -) 40 mg PO DAILY [facility] Last Admin: 10/29/17 09:23 Dose: 40 mg Gabapentin (Neurontin -) 300 mg PO TID [facility] Last Admin: 10/29/17 06:29 Dose: 300 mg Guaifenesin (Diabetic Tussin Dm -) 10 ml PO Q4H PRN PRN Reason: COUGH Heparin Sodium (Porcine) (Heparin -) 5,000 unit SQ BID [facility] Last Admin: 10/29/17 09:22 Dose: 5,000 unit Potassium Chloride 10 meq/ (Sodium Chloride) 1,005 mls @ 75 mls/hr IVPB Q13H [facility] Last Admin: 10/29/17 09:26 Dose: 75 mls/hr Insulin Aspart (Novolog Vial Sliding Scale -) 1 vial SQ ACHS [facility] PRN Reason: Protocol Last Admin: 10/29/17 11:59 Dose: 12 units Insulin Detemir (Levemir Vial) 20 units SQ BID@0700,2200 [facility] Last Admin: 10/29/17 06:27 Dose: 20 units Levothyroxine Sodium (Synthroid -) 50 mcg PO DAILY@0700 [facility] Last Admin: 10/29/17 06:29 Dose: 50 mcg Lisinopril (Prinivil) 20 mg PO DAILY [facility] Last Admin: 10/29/17 09:25 Dose: 20 mg Loratadine (Claritin -) 10 mg PO DAILY [facility] Last Admin: 10/29/17 09:23 Dose: 10 mg Ondansetron HCl (Zofran Injection) 4 mg IVPUSH Q6H PRN PRN Reason: NAUSEA Phenytoin Sodium (Dilantin -) 300 mg PO DAILY [facility] Last Admin: 10/29/17 09:24 Dose: 300 mg Prednisone (Deltasone -) 40 mg PO DAILY [facility] Last Admin: 10/29/17 09:22 Dose: 40 mg Topiramate 100 mg/ Topiramate (25 mg) 125 mg PO BID [facility] Last Admin: 10/29/17 09:25 Dose: 125 mg A/P Acute COPD Exacerbation LV Diastolic Dysfunction HTN DM Hypercholesterolemia Hypothyroidism Morbid Obesity Likely MARILU - prednisone taper - inhaled bronchodilators - O2 to keep SpO2 >90% - glucose control while on systemic steroids - DVT prophylaxis - will need outpt PFTs, PSG
--- NOTE | 2017-10-29 17:59 | PN ---
Progress Note (short form) - Note Progress Note: acute resp distress/asthma/copd francisco probably prerenal 2/2 hyperglycemia and osmotic diuresis chf unlikely normal kiney and bladder sono in aug 2017 will start IVF repeat urine studies Current Medications Acetaminophen (Tylenol -) 650 mg PO Q6H PRN PRN Reason: FEVER Last Admin: 10/28/17 17:23 Dose: 650 mg Albuterol/Ipratropium (Duoneb -) 1 amp NEB RQID [facility] Last Admin: 10/29/17 16:35 Dose: 1 amp Aspirin (Asa -) 81 mg PO DAILY [facility] Last Admin: 10/29/17 09:23 Dose: 81 mg Atorvastatin Calcium (Lipitor -) 20 mg PO HS [facility] Last Admin: 10/28/17 22:07 Dose: 20 mg Benzocaine/Menthol (Cepacol Lozenge -) 1 each MM PRN PRN PRN Reason: SORE THROAT Clonazepam (Klonopin -) 0.5 mg PO Q12H PRN PRN Reason: ANXIETY Last Admin: 10/28/17 22:14 Dose: 0.5 mg Ergocalciferol (Drisdol -) 50,000 unit PO Th@1000 [facility] Fluoxetine HCl (Prozac -) 40 mg PO DAILY [facility] Last Admin: 10/29/17 09:23 Dose: 40 mg Gabapentin (Neurontin -) 300 mg PO TID [facility] Last Admin: 10/29/17 14:01 Dose: 300 mg Guaifenesin (Diabetic Tussin Dm -) 10 ml PO Q4H PRN PRN Reason: COUGH Heparin Sodium (Porcine) (Heparin -) 5,000 unit SQ BID [facility] Last Admin: 10/29/17 09:22 Dose: 5,000 unit Potassium Chloride 10 meq/ (Sodium Chloride) 1,005 mls @ 75 mls/hr IVPB Q13H [facility] Last Admin: 10/29/17 09:26 Dose: 75 mls/hr Insulin Aspart (Novolog Vial Sliding Scale -) 1 vial SQ ACHS [facility] PRN Reason: Protocol Last Admin: 10/29/17 17:08 Dose: 14 units Insulin Detemir (Levemir Vial) 20 units SQ BID@0700,2200 [facility] Last Admin: 10/29/17 06:27 Dose: 20 units Levothyroxine Sodium (Synthroid -) 50 mcg PO DAILY@0700 [facility] Last Admin: 10/29/17 06:29 Dose: 50 mcg Lisinopril (Prinivil) 20 mg PO DAILY [facility] Last Admin: 10/29/17 09:25 Dose: 20 mg Loratadine (Claritin -) 10 mg PO DAILY [facility] Last Admin: 10/29/17 09:23 Dose: 10 mg Ondansetron HCl (Zofran Injection) 4 mg IVPUSH Q6H PRN PRN Reason: NAUSEA Phenytoin Sodium (Dilantin -) 300 mg PO DAILY [facility] Last Admin: 10/29/17 09:24 Dose: 300 mg Prednisone (Deltasone -) 40 mg PO DAILY [facility] Last Admin: 10/29/17 09:22 Dose: 40 mg Topiramate 100 mg/ Topiramate (25 mg) 125 mg PO BID [facility] Last Admin: 10/29/17 09:25 Dose: 125 mg Last Vital Signs Temp Pulse Resp BP Pulse Ox 97.7 F 100 H 18 117/72 97 10/29/17 15:00 10/29/17 15:00 10/29/17 15:00 10/29/17 15:00 10/29/17 07:52 lungs clear heart reg abd sft nontender ext no mariama CBC, BMP 10/29/17 06:30 10/29/17 06:30 IMP-asthma exacerbation francisco/ prerenal both improving Plan- can d/c from renal POV
[2017-10-29] MEDS ORDERED: oxyCODONE HCL 5 MG TABLET PO ONE (20:35)
[2017-10-29] MEDS: clonazePAM 0.5 MG TABLET PO PRN (20:53)
[2017-10-29] MEDS: ACETAMINOPHEN 325 MG TABLET (FP) PO PRN (20:55)
[2017-10-29] MEDS: ATORVASTATIN CA 20 MG TABLET (FP) PO SCH (21:09)
[2017-10-30] MEDS: INSULIN SLIDING SCALE (NOVOLOG) 1 VIAL SQ SCH ×5 (06:07→21:30)
[2017-10-30] MEDS: LEVOTHYROXINE NA 50 MCG TABLET (FP) PO SCH (06:08)
[2017-10-30] MEDS: GABAPENTIN 300 MG CAPSULE (FP) PO SCH ×3 (06:08→21:28)
[2017-10-30 06:10] LABS: HEMATOCRIT 34.2 % (32.4-45.2); HEMOGLOBIN 11.4 GM/dL (10.7-15.3); MCH 26.6 pg (25.7-33.7); MCHC 33.3 g/dl (32.0-36.0); MEAN CELL VOLUME 79.8 fl (80-96); MEAN PLT VOLUME 9.7 fl (7.5-11.1); PLATELET COUNT 240 K/MM3 (134-434); RBC 4.28 M/mm3 (3.60-5.2); RDW 15.4 % (11.6-15.6); WHITE BLOOD COUNT 10.4 K/mm3 (4.0-10.0)
[2017-10-30] MEDS: INSULIN DETEMIR 100 UNITS/ML MDV SQ SCH ×2 (06:10→21:29)
[2017-10-30 06:38] LABS: CHLORIDE 108 mmol/L (98-107); POTASSIUM 3.9 mmol/L (3.5-5.1); SODIUM 137 mmol/L (136-145)
[2017-10-30 06:59] LABS: ALBUMIN 3.1 g/dl (3.4-5.0); ALK PHOS 77 U/L (45-117); ANION GAP 8 (8-16); BLOOD UREA NITROGEN 19 mg/dL (7-18); CALCIUM 8.3 mg/dL (8.5-10.1); CO2 21 mmol/L (21-32); CREATININE 0.9 mg/dL (0.55-1.02); SGOT/AST 10 U/L (15-37); SGPT/ALT 25 U/L (12-78); TOT PROT 6.7 g/dl (6.4-8.2)
[2017-10-30 07:36] LABS: BILIRUBIN,TOTAL < 0.1 mg/dL (0.2-1.0)
[2017-10-30 08:03] LABS: GLUCOSE,RANDOM 333 mg/dL (74-106)
[2017-10-30] MEDS ORDERED: PT OWN MED DRAWER 7, Y5N ONE ×2 (08:11→21:53)
[2017-10-30] MEDS ORDERED: INSULIN (NOVOLOG) ASPART 100 UNITS/ML 10ML VIAL ONE ×3 (08:12→15:21)
[2017-10-30] MEDS ORDERED: INSULIN DETEMIR 100 UNITS/ML MDV SQ ONE (08:12)
[2017-10-30] MEDS ORDERED: INSULIN (NOVOLOG MIX 70/30) 100 UNITS/ML MDV SQ ONE (08:12)
[2017-10-30] MEDS: ALBUTEROL SO4 2.5/IPRATROPIUM 0.5 INH SOL 3 ML VIAL.NEB. NEB SCH ×4 (08:32→20:52)
[2017-10-30] MEDS: LISINOPRIL 10 MG TABLET (FP) PO SCH (09:29)
[2017-10-30] MEDS: HEPARIN NA (PORCINE) 5,000 UNITS/ML 1ML VIAL SQ SCH ×2 (09:29→21:29)
--- NOTE | 2017-10-30 09:29 | PN ---
Progress Note, Physician Chief Complaint: Events noted Mild expiratory wheeze Dyspnea slowly improving History of Present Illness: Patient was seen and examined. Awake and alert. Chart was reviewed Denies chest pain, less SOB and no palpitations Expiratory wheeze better. Less cough - Current Medication List Current Medications: Active Medications Acetaminophen (Tylenol -) 650 mg PO Q6H PRN PRN Reason: FEVER Last Admin: 10/29/17 20:55 Dose: 650 mg Albuterol/Ipratropium (Duoneb -) 1 amp NEB RQID [facility] Last Admin: 10/29/17 20:00 Dose: 1 amp Aspirin (Asa -) 81 mg PO DAILY [facility] Last Admin: 10/29/17 09:23 Dose: 81 mg Atorvastatin Calcium (Lipitor -) 20 mg PO HS [facility] Last Admin: 10/29/17 21:09 Dose: 20 mg Benzocaine/Menthol (Cepacol Lozenge -) 1 each MM PRN PRN PRN Reason: SORE THROAT Ergocalciferol (Drisdol -) 50,000 unit PO Th@1000 [facility] Fluoxetine HCl (Prozac -) 40 mg PO DAILY [facility] Last Admin: 10/29/17 09:23 Dose: 40 mg Gabapentin (Neurontin -) 300 mg PO TID [facility] Last Admin: 10/30/17 06:08 Dose: 300 mg Guaifenesin (Diabetic Tussin Dm -) 10 ml PO Q4H PRN PRN Reason: COUGH Heparin Sodium (Porcine) (Heparin -) 5,000 unit SQ BID [facility] Last Admin: 10/29/17 21:08 Dose: 5,000 unit Potassium Chloride 10 meq/ (Sodium Chloride) 1,005 mls @ 75 mls/hr IVPB Q13H [facility] Last Admin: 10/29/17 21:08 Dose: 75 mls/hr Insulin Aspart (Novolog Vial Sliding Scale -) 1 vial SQ ACHS [facility] PRN Reason: Protocol Last Admin: 10/30/17 06:07 Dose: 10 units Insulin Detemir (Levemir Vial) 20 units SQ BID@0700,2200 [facility] Last Admin: 10/30/17 06:10 Dose: 20 units Levothyroxine Sodium (Synthroid -) 50 mcg PO DAILY@0700 [facility] Last Admin: 10/30/17 06:08 Dose: 50 mcg Lisinopril (Prinivil) 20 mg PO DAILY [facility] Last Admin: 10/29/17 09:25 Dose: 20 mg Loratadine (Claritin -) 10 mg PO DAILY [facility] Last Admin: 10/29/17 09:23 Dose: 10 mg Ondansetron HCl (Zofran Injection) 4 mg IVPUSH Q6H PRN PRN Reason: NAUSEA Phenytoin Sodium (Dilantin -) 300 mg PO DAILY [facility] Last Admin: 10/29/17 09:24 Dose: 300 mg Prednisone (Deltasone -) 40 mg PO DAILY [facility] Last Admin: 10/29/17 09:22 Dose: 40 mg Topiramate 100 mg/ Topiramate (25 mg) 125 mg PO BID [facility] Last Admin: 10/29/17 21:10 Dose: 125 mg - Objective Vital Signs: Vital Signs Temperature 97.8 F 10/30/17 07:29 Pulse Rate 85 10/30/17 07:29 Respiratory Rate 18 10/30/17 07:35 Blood Pressure 102/58 10/30/17 07:29 O2 Sat by Pulse Oximetry (%) 97 10/30/17 07:35 HENT: Yes: Atraumatic Neck: Yes: Supple Cardiovascular: Yes: Regular Rate and Rhythm, S1, S2 Respiratory: Yes: Diminished, Poor Air Entry, Wheezes (Mild expiratory) Gastrointestinal: Yes: Normal Bowel Sounds, Soft, Abdomen, Obese. No: Tenderness Edema: No Additional Findings/Remarks: - Review of Systems Constitutional: denies: Chills, Fever Cardiovascular: denies: chest pain (+) shortness of breath and palpitations Respiratory: reports: Cough but no Sputum Production Gastrointestinal: denies: Nausea, Vomiting, Diarrhea, Constipation or Abdominal Discomfort Musculoskeletal: reports: Generalized Pain Neurological: denies: Headache Labs: CBC, BMP 10/30/17 05:51 10/30/17 05:51 Problem List - Problems (1) COPD exacerbation Code(s): J44.1 - CHRONIC OBSTRUCTIVE PULMONARY DISEASE W (ACUTE) EXACERBATION (2) Dyspnea Code(s): R06.00 - DYSPNEA, UNSPECIFIED Qualifiers: Dyspnea type: unspecified Qualified Code(s): R06.00 - Dyspnea, unspecified (3) Anxiety Code(s): F41.9 - ANXIETY DISORDER, UNSPECIFIED (4) Chronic renal insufficiency, stage III (moderate) Code(s): N18.3 - CHRONIC KIDNEY DISEASE, STAGE 3 (MODERATE) (5) Diabetes mellitus, insulin dependent (IDDM), uncontrolled Code(s): E10.65 - TYPE 1 DIABETES MELLITUS WITH HYPERGLYCEMIA Qualifiers: Diabetes mellitus complication status: without complication Qualified Code( s): E10.65 - Type 1 diabetes mellitus with hyperglycemia (6) Dizziness Code(s): R42 - DIZZINESS AND GIDDINESS (7) HTN (hypertension) Code(s): I10 - ESSENTIAL (PRIMARY) HYPERTENSION Qualifiers: Hypertension type: essential hypertension Qualified Code(s): I10 - Essential (primary) hypertension (8) Hypercholesterolemia Code(s): E78.00 - PURE HYPERCHOLESTEROLEMIA, UNSPECIFIED (9) MARILU (obstructive sleep apnea) Code(s): G47.33 - OBSTRUCTIVE SLEEP APNEA (ADULT) (PEDIATRIC) (10) Near syncope Code(s): R55 - SYNCOPE AND COLLAPSE Assessment/Plan 1. Acute exacerbation of COPD and chronic bronchitis 2. Palpitations, near syncope with no evidence of sustained arrhythmia, probable orthostatic hypotension 3. Sinus tachycardia due to above 4. Chest pain syndrome atypical for CAD angina pectoris 5. Diastolic LV dysfunction with class 0 NYHA classification LV failure 6. Hypertension 7. Diabetes mellitus 8. Hypercholesterolemia 9. Hypothyroidism 10. Probable obstructive sleep apnea 11. Anxiety disorder (severe) PLAN: 1. Continue Lisinopril 2. Consider Cardizem or Bystolic if patient remains in sinus tachycardia 3. Continue ASA 4. steroids and bronchodilators Further plans are to follow Herberth Werner MD
[2017-10-30] MEDS: ASPIRIN 81 MG CHEWABLE TABLETS PO SCH (09:30)
[2017-10-30] MEDS: LORATADINE 10 MG TABLET PO SCH (09:30)
[2017-10-30] MEDS: predniSONE 20 MG TABLET (UD) PO SCH (09:30)
[2017-10-30] MEDS: FLUoxetine HCL 20 MG CAPSULE (FP) PO SCH (09:30)
[2017-10-30] MEDS: PHENYTOIN NA EXTENDED 100 MG CAPSULE (FP) PO SCH (09:40)
[2017-10-30] MEDS: TOPIRAMATE PO SCH ×2 (09:41→21:54)
--- NOTE | 2017-10-30 11:04 | PN ---
Progress Note, Physician History of Present Illness: pulmonary alert,feeling better,less dyspneic,+dry cough - Current Medication List Current Medications: Active Medications Acetaminophen (Tylenol -) 650 mg PO Q6H PRN PRN Reason: FEVER Last Admin: 10/29/17 20:55 Dose: 650 mg Albuterol/Ipratropium (Duoneb -) 1 amp NEB RQID [facility] Last Admin: 10/29/17 20:00 Dose: 1 amp Aspirin (Asa -) 81 mg PO DAILY [facility] Last Admin: 10/30/17 09:30 Dose: 81 mg Atorvastatin Calcium (Lipitor -) 20 mg PO HS [facility] Last Admin: 10/29/17 21:09 Dose: 20 mg Benzocaine/Menthol (Cepacol Lozenge -) 1 each MM PRN PRN PRN Reason: SORE THROAT Ergocalciferol (Drisdol -) 50,000 unit PO Th@1000 [facility] Fluoxetine HCl (Prozac -) 40 mg PO DAILY [facility] Last Admin: 10/30/17 09:30 Dose: 40 mg Gabapentin (Neurontin -) 300 mg PO TID [facility] Last Admin: 10/30/17 06:08 Dose: 300 mg Guaifenesin (Diabetic Tussin Dm -) 10 ml PO Q4H PRN PRN Reason: COUGH Heparin Sodium (Porcine) (Heparin -) 5,000 unit SQ BID [facility] Last Admin: 10/30/17 09:29 Dose: 5,000 unit Potassium Chloride 10 meq/ (Sodium Chloride) 1,005 mls @ 75 mls/hr IVPB Q13H [facility] Last Admin: 10/29/17 21:08 Dose: 75 mls/hr Insulin Aspart (Novolog Vial Sliding Scale -) 1 vial SQ ACHS [facility] PRN Reason: Protocol Last Admin: 10/30/17 06:07 Dose: 10 units Insulin Detemir (Levemir Vial) 20 units SQ BID@0700,2200 [facility] Last Admin: 10/30/17 06:10 Dose: 20 units Levothyroxine Sodium (Synthroid -) 50 mcg PO DAILY@0700 [facility] Last Admin: 10/30/17 06:08 Dose: 50 mcg Lisinopril (Prinivil) 20 mg PO DAILY [facility] Last Admin: 10/30/17 09:29 Dose: 20 mg Loratadine (Claritin -) 10 mg PO DAILY [facility] Last Admin: 04/02/18 09:30 Dose: 10 mg Ondansetron HCl (Zofran Injection) 4 mg IVPUSH Q6H PRN PRN Reason: NAUSEA Phenytoin Sodium (Dilantin -) 300 mg PO DAILY [facility] Last Admin: 10/30/17 09:40 Dose: 300 mg Prednisone (Deltasone -) 40 mg PO DAILY [facility] Last Admin: 10/30/17 09:30 Dose: 40 mg Topiramate 100 mg/ Topiramate (25 mg) 125 mg PO BID [facility] Last Admin: 10/30/17 09:41 Dose: 125 mg - Objective Vital Signs: Vital Signs Temperature 97.8 F 10/30/17 07:29 Pulse Rate 85 10/30/17 07:29 Respiratory Rate 18 10/30/17 07:35 Blood Pressure 102/58 10/30/17 07:29 O2 Sat by Pulse Oximetry (%) 97 10/30/17 07:35 Constitutional: Yes: Calm, Obese Eyes: Yes: WNL HENT: Yes: WNL Neck: Yes: WNL Cardiovascular: Yes: Regular Rate and Rhythm, S1, S2 Respiratory: Yes: Wheezes (scattered yeimi wheezes) Gastrointestinal: Yes: Normal Bowel Sounds, Soft Extremities: Yes: WNL Edema: No Labs: CBC, BMP 10/30/17 05:51 10/30/17 05:51 Problem List - Problems (1) Asthma Code(s): J45.909 - UNSPECIFIED ASTHMA, UNCOMPLICATED (2) COPD exacerbation Code(s): J44.1 - CHRONIC OBSTRUCTIVE PULMONARY DISEASE W (ACUTE) EXACERBATION (3) Dyspnea Code(s): R06.00 - DYSPNEA, UNSPECIFIED Qualifiers: Dyspnea type: unspecified Qualified Code(s): R06.00 - Dyspnea, unspecified (4) DVT prophylaxis Code(s): [id number] - (5) HTN (hypertension) Code(s): I10 - ESSENTIAL (PRIMARY) HYPERTENSION Qualifiers: Hypertension type: essential hypertension Qualified Code(s): I10 - Essential (primary) hypertension (6) Obesity, Class III, BMI 40-49.9 (morbid obesity) Code(s): E66.01 - MORBID (SEVERE) OBESITY DUE TO EXCESS CALORIES (7) Shortness of breath Code(s): R06.02 - SHORTNESS OF BREATH (8) Diabetes Code(s): E11.9 - TYPE 2 DIABETES MELLITUS WITHOUT COMPLICATIONS (9) Hypercholesterolemia Code(s): E78.00 - PURE HYPERCHOLESTEROLEMIA, UNSPECIFIED Assessment/Plan A/P Acute COPD Exacerbation LV Diastolic Dysfunction HTN DM Hypercholesterolemia Hypothyroidism Morbid Obesity Likely MARILU - prednisone - inhaled bronchodilators - O2 to keep SpO2 >90% - glucose control while on systemic steroids - DVT prophylaxis - will need outpt PFTs, PSG - sleep tiffany LOU
--- NOTE | 2017-10-30 11:41 | EKG ---
Test Reason : Blood Pressure : / mmHG Vent. Rate : 107 BPM Atrial Rate : 107 BPM P-R Int : 164 ms QRS Dur : 088 ms QT Int : 356 ms P-R-T Axes : 058 -35 038 degrees QTc Int : 475 ms SINUS TACHYCARDIA LEFT AXIS DEVIATION MINIMAL VOLTAGE CRITERIA FOR LVH, MAY BE NORMAL VARIANT ABNORMAL ECG WHEN COMPARED WITH ECG OF 26-OCT-2017 18:15, NO SIGNIFICANT CHANGE WAS FOUND Confirmed by JEROME MENDOZA, JU ([id number]) on 10/30/2017 11:41:10 AM Referred By: Confirmed By:JU CANO MD
--- NOTE | 2017-10-30 14:17 | PN ---
Progress Note, Physician Chief Complaint: AWAKE ALERT CHART REVIEWED FAMILY BEDSIDE - Current Medication List Current Medications: Active Medications Acetaminophen (Tylenol -) 650 mg PO Q6H PRN PRN Reason: FEVER Last Admin: 10/29/17 20:55 Dose: 650 mg Albuterol/Ipratropium (Duoneb -) 1 amp NEB RQID [facility] Last Admin: 10/30/17 08:32 Dose: 1 amp Aspirin (Asa -) 81 mg PO DAILY [facility] Last Admin: 10/30/17 09:30 Dose: 81 mg Atorvastatin Calcium (Lipitor -) 20 mg PO HS [facility] Last Admin: 10/29/17 21:09 Dose: 20 mg Benzocaine/Menthol (Cepacol Lozenge -) 1 each MM PRN PRN PRN Reason: SORE THROAT Ergocalciferol (Drisdol -) 50,000 unit PO Th@1000 [facility] Fluoxetine HCl (Prozac -) 40 mg PO DAILY [facility] Last Admin: 10/30/17 09:30 Dose: 40 mg Gabapentin (Neurontin -) 300 mg PO TID [facility] Last Admin: 10/30/17 06:08 Dose: 300 mg Guaifenesin (Diabetic Tussin Dm -) 10 ml PO Q4H PRN PRN Reason: COUGH Heparin Sodium (Porcine) (Heparin -) 5,000 unit SQ BID [facility] Last Admin: 10/30/17 09:29 Dose: 5,000 unit Potassium Chloride 10 meq/ (Sodium Chloride) 1,005 mls @ 75 mls/hr IVPB Q13H [facility] Last Admin: 10/29/17 21:08 Dose: 75 mls/hr Insulin Aspart (Novolog Vial Sliding Scale -) 1 vial SQ ACHS [facility] PRN Reason: Protocol Last Admin: 10/30/17 11:52 Dose: 6 units Insulin Detemir (Levemir Vial) 20 units SQ BID@0700,2200 [facility] Last Admin: 10/30/17 06:10 Dose: 20 units Levothyroxine Sodium (Synthroid -) 50 mcg PO DAILY@0700 [facility] Last Admin: 10/30/17 06:08 Dose: 50 mcg Lisinopril (Prinivil) 20 mg PO DAILY [facility] Last Admin: 10/30/17 09:29 Dose: 20 mg Loratadine (Claritin -) 10 mg PO DAILY [facility] Last Admin: 10/30/17 09:30 Dose: 10 mg Ondansetron HCl (Zofran Injection) 4 mg IVPUSH Q6H PRN PRN Reason: NAUSEA Phenytoin Sodium (Dilantin -) 300 mg PO DAILY [facility] Last Admin: 10/30/17 09:40 Dose: 300 mg Prednisone (Deltasone -) 40 mg PO DAILY [facility] Last Admin: 10/30/17 09:30 Dose: 40 mg Topiramate 100 mg/ Topiramate (25 mg) 125 mg PO BID [facility] Last Admin: 10/30/17 09:41 Dose: 125 mg - Objective Vital Signs: Vital Signs Temperature 97.8 F 10/30/17 07:29 Pulse Rate 85 10/30/17 07:29 Respiratory Rate 18 10/30/17 07:35 Blood Pressure 102/58 10/30/17 07:29 O2 Sat by Pulse Oximetry (%) 97 10/30/17 07:35 Constitutional: Yes: Mild Distress Eyes: Yes: WNL HENT: Yes: WNL Neck: Yes: WNL Cardiovascular: Yes: WNL Respiratory: Yes: On Nasal O2, Wheezes Gastrointestinal: Yes: WNL Genitourinary: Yes: WNL Musculoskeletal: Yes: WNL Extremities: Yes: WNL Edema: Yes Peripheral Pulses WNL: Yes Integumentary: Yes: WNL Wound/Incision: Yes: Clean/Dry Neurological: Yes: WNL ...Motor Strength: WNL Psychiatric: Yes: WNL Labs: CBC, BMP 10/30/17 05:51 10/30/17 05:51 Problem List - Problems (1) Asthma Code(s): J45.909 - UNSPECIFIED ASTHMA, UNCOMPLICATED (2) COPD exacerbation Code(s): J44.1 - CHRONIC OBSTRUCTIVE PULMONARY DISEASE W (ACUTE) EXACERBATION (3) Diabetes Code(s): E11.9 - TYPE 2 DIABETES MELLITUS WITHOUT COMPLICATIONS (4) Dyspnea Code(s): R06.00 - DYSPNEA, UNSPECIFIED Qualifiers: Dyspnea type: unspecified Qualified Code(s): R06.00 - Dyspnea, unspecified (5) Near syncope Code(s): R55 - SYNCOPE AND COLLAPSE (6) Muscle strain Code(s): T14.8 - OTHER INJURY OF UNSPECIFIED BODY REGION * DO NOT USE * (7) Epilepsy Code(s): G40.909 - EPILEPSY, UNSP, NOT INTRACTABLE, WITHOUT STATUS EPILEPTICUS (8) HTN (hypertension) Code(s): I10 - ESSENTIAL (PRIMARY) HYPERTENSION Qualifiers: Hypertension type: essential hypertension Qualified Code(s): I10 - Essential (primary) hypertension (9) History of stroke Code(s): Z86.73 - PRSNL HX OF TIA (TIA), AND CEREB INFRC W/O RESID DEFICITS Assessment/Plan STEROIDS NEBS 02 SUPPORT CARDIO/PULM EVAL DVT PROPHYLAXIS DC TOMORROW
[2017-10-30] MEDS: POTASSIUM CHLORIDE 10 MEQ in SODIUM CHLORIDE 1,000 ML IVPB SCH (17:17)
--- NOTE | 2017-10-30 17:50 | PN ---
Progress Note (short form) - Note Progress Note: Renal follow up for ALEJANDRO Pt seen and examined at the bedside awake and alert no acute complaints no SOB, CP, N/V/D, Abd pain making urine on IVF Vital Signs Temperature 97.8 F 10/30/17 14:00 Pulse Rate 108 H 10/30/17 14:00 Respiratory Rate 20 10/30/17 14:00 Blood Pressure 125/64 10/30/17 14:00 O2 Sat by Pulse Oximetry (%) 97 10/30/17 07:35 Intake & Output 10/27/17 10/28/17 10/29/17 10/30/17 23:59 23:59 23:59 23:59 Intake Total 800 1940 2170 2400 Balance 800 1940 2170 2400 Weight 107.048 kg 107.048 kg NAD awake and alert RRR CTA Obese no LE edema CBC, BMP 10/30/17 05:51 10/30/17 05:51 Current Medications Acetaminophen (Tylenol -) 650 mg PO Q6H PRN PRN Reason: FEVER Last Admin: 10/29/17 20:55 Dose: 650 mg Albuterol/Ipratropium (Duoneb -) 1 amp NEB RQID [facility] Last Admin: 10/30/17 13:10 Dose: 1 amp Aspirin (Asa -) 81 mg PO DAILY [facility] Last Admin: 10/30/17 09:30 Dose: 81 mg Atorvastatin Calcium (Lipitor -) 20 mg PO HS [facility] Last Admin: 10/29/17 21:09 Dose: 20 mg Benzocaine/Menthol (Cepacol Lozenge -) 1 each MM PRN PRN PRN Reason: SORE THROAT Ergocalciferol (Drisdol -) 50,000 unit PO Th@1000 [facility] Fluoxetine HCl (Prozac -) 40 mg PO DAILY [facility] Last Admin: 10/30/17 09:30 Dose: 40 mg Gabapentin (Neurontin -) 300 mg PO TID [facility] Last Admin: 10/30/17 14:35 Dose: 300 mg Guaifenesin (Diabetic Tussin Dm -) 10 ml PO Q4H PRN PRN Reason: COUGH Heparin Sodium (Porcine) (Heparin -) 5,000 unit SQ BID [facility] Last Admin: 10/30/17 09:29 Dose: 5,000 unit Insulin Aspart (Novolog Vial Sliding Scale -) 1 vial SQ ACHS [facility] PRN Reason: Protocol Last Admin: 10/30/17 17:16 Dose: 12 units Insulin Detemir (Levemir Vial) 20 units SQ BID@0700,2200 [facility] Last Admin: 10/30/17 06:10 Dose: 20 units Levothyroxine Sodium (Synthroid -) 50 mcg PO DAILY@0700 [facility] Last Admin: 10/30/17 06:08 Dose: 50 mcg Lisinopril (Prinivil) 20 mg PO DAILY [facility] Last Admin: 10/30/17 09:29 Dose: 20 mg Loratadine (Claritin -) 10 mg PO DAILY [facility] Last Admin: 10/30/17 09:30 Dose: 10 mg Ondansetron HCl (Zofran Injection) 4 mg IVPUSH Q6H PRN PRN Reason: NAUSEA Phenytoin Sodium (Dilantin -) 300 mg PO DAILY [facility] Last Admin: 10/30/17 09:40 Dose: 300 mg Prednisone (Deltasone -) 40 mg PO DAILY [facility] Last Admin: 10/30/17 09:30 Dose: 40 mg Topiramate 100 mg/ Topiramate (25 mg) 125 mg PO BID [facility] Last Admin: 10/30/17 09:41 Dose: 125 mg 52 year old woman with PMhx of DM, Hypothryfodism, Asthma, COPD, MARILU, Depression , CVA who presented with SOB and admitted for COPD/Asthma Exacerbation with ALEJANDRO. #ALEJANDRO secondary to volume depletion #COPD/Asthma Exacerbation renal function now improved and stable can d/c IVF trend BUN/Cr continue ACEi Continue steroids and Nebs as per primary Ervin Rosas DO
[2017-10-30] MEDS ORDERED: ACETAMINOPHEN 325 MG TABLET (FP) PO PRN (18:52)
[2017-10-30] MEDS ORDERED: oxyCODONE HCL 5 MG TABLET PO ONE (19:51)
[2017-10-30] MEDS: ATORVASTATIN CA 20 MG TABLET (FP) PO SCH (21:28)
[2017-10-31 06:06] VITALS: PULSE 85; TEMP 97.6
[2017-10-31] MEDS: GABAPENTIN 300 MG CAPSULE (FP) PO SCH ×2 (06:20→13:33)
[2017-10-31] MEDS: INSULIN DETEMIR 100 UNITS/ML MDV SQ SCH (06:20)
[2017-10-31] MEDS: LEVOTHYROXINE NA 50 MCG TABLET (FP) PO SCH (06:20)
[2017-10-31] MEDS: INSULIN SLIDING SCALE (NOVOLOG) 1 VIAL SQ SCH ×2 (06:20→11:58)
[2017-10-31 07:29] VITALS: BP 103/69
[2017-10-31 07:29] LABS: ANION GAP 5 (8-16); BLOOD UREA NITROGEN 22 mg/dL (7-18); CALCIUM 8.3 mg/dL (8.5-10.1); CHLORIDE 110 mmol/L (98-107); CO2 25 mmol/L (21-32); CREATININE 0.9 mg/dL (0.55-1.02); GLUCOSE,RANDOM 172 mg/dL (74-106); MAGNESIUM 1.8 mg/dL (1.8-2.4); SODIUM 140 mmol/L (136-145)
--- NOTE | 2017-10-31 08:24 | PN ---
Progress Note (short form) - Note Progress Note: Chief Complaint: Events noted, notes reviewed, denies any palpitations, complaining of persistent dyspnea although severity has decreased, denies any chest pain History of Present Illness: Seen and examined on telemetry. Events noted, notes reviewed, denies any palpitations, complaining of persistent dyspnea although severity has decreased , denies any chest pain Echocardiography 09/11/17 revealed normal LV size and function with no significant valvular pathology - Current Medication List Current Medications: Current Medications Acetaminophen (Tylenol -) 650 mg PO Q6H PRN PRN Reason: FEVER Last Admin: 10/30/17 21:34 Dose: 650 mg Albuterol/Ipratropium (Duoneb -) 1 amp NEB RQID [facility] Last Admin: 10/30/17 20:52 Dose: 1 amp Aspirin (Asa -) 81 mg PO DAILY [facility] Last Admin: 10/30/17 09:30 Dose: 81 mg Atorvastatin Calcium (Lipitor -) 20 mg PO HS [facility] Last Admin: 10/30/17 21:28 Dose: 20 mg Benzocaine/Menthol (Cepacol Lozenge -) 1 each MM PRN PRN PRN Reason: SORE THROAT Ergocalciferol (Drisdol -) 50,000 unit PO Th@1000 [facility] Fluoxetine HCl (Prozac -) 40 mg PO DAILY [facility] Last Admin: 10/30/17 09:30 Dose: 40 mg Gabapentin (Neurontin -) 300 mg PO TID [facility] Last Admin: 10/31/17 06:20 Dose: 300 mg Guaifenesin (Diabetic Tussin Dm -) 10 ml PO Q4H PRN PRN Reason: COUGH Heparin Sodium (Porcine) (Heparin -) 5,000 unit SQ BID [facility] Last Admin: 10/30/17 21:29 Dose: 5,000 unit Insulin Aspart (Novolog Vial Sliding Scale -) 1 vial SQ ACHS [facility] PRN Reason: Protocol Last Admin: 10/31/17 06:20 Dose: 4 units Insulin Detemir (Levemir Vial) 20 units SQ BID@0700,2200 [facility] Last Admin: 10/31/17 06:20 Dose: 20 units Levothyroxine Sodium (Synthroid -) 50 mcg PO DAILY@0700 [facility] Last Admin: 10/31/17 06:20 Dose: 50 mcg Lisinopril (Prinivil) 20 mg PO DAILY [facility] Last Admin: 10/30/17 09:29 Dose: 20 mg Loratadine (Claritin -) 10 mg PO DAILY [facility] Last Admin: 10/30/17 09:30 Dose: 10 mg Ondansetron HCl (Zofran Injection) 4 mg IVPUSH Q6H PRN PRN Reason: NAUSEA Phenytoin Sodium (Dilantin -) 300 mg PO DAILY [facility] Last Admin: 10/30/17 09:40 Dose: 300 mg Prednisone (Deltasone -) 40 mg PO DAILY [facility] Last Admin: 10/30/17 09:30 Dose: 40 mg Topiramate 100 mg/ Topiramate (25 mg) 125 mg PO BID [facility] Last Admin: 10/30/17 21:54 Dose: 125 mg - Review of Systems Constitutional: denies: Chills, Fever Cardiovascular: as noted above Respiratory: reports: Cough but no Sputum Production Gastrointestinal: denies: Nausea, Vomiting, Diarrhea, Constipation or Abdominal Discomfort Musculoskeletal: reports: Generalized Pain Neurological: denies: Headache - Objective Vital Signs: Last Vital Signs Temp Pulse Resp BP Pulse Ox 97.6 F 85 20 103/69 97 10/31/17 07:26 10/31/17 07:26 10/31/17 07:29 10/31/17 07:26 10/31/17 07:29 Intake & Output 10/28/17 10/29/17 10/30/17 10/31/17 23:59 23:59 23:59 23:59 Intake Total 1939 2170 3900 900 Balance 1939 2170 3900 900 Weight 236 lb Constitutional: No Distress, Calm Neck: Supple Negative JVD No Bruit Cardiovascular: S1 S2 Regular Rate and Rhythm Respiratory: Bilateral Minimal Scattered Rhonchi Gastrointestinal: Soft Benign Normal Bowel Sounds Ext: Negative Edema Labs: CBC, BMP 10/30/17 05:51 10/31/17 06:25 Assessment/Plan ASSESSMENT: 1. Acute exacerbation of COPD, chronic bronchitis, resolving 2. Palpitations, near syncope with no evidence of sustained arrhythmia, probable orthostatic hypotension, resolved 3. Sinus tachycardia, reactionary to above, resolved 4. Chest pain syndrome atypical for CAD angina pectoris, resolved 5. Diastolic LV dysfunction with class 0 NYHA classification LV failure 6. Hypertension 7. Diabetes mellitus 8. Hypercholesterolemia 9. Hypothyroidism 10. Probable obstructive sleep apnea 11. Anxiety disorder (severe) PLAN: 1. Continue Lisinopril 2. As outlined in prior notes if sinus tachycardia and palpitations persist despite resolution of the above noted pulmonary pathology recommend the addition of Cardizem CD or Bystolic therapy 3. Continue ASA 4. steroids and bronchodilators as per the primary team 5. Can be transfred to floor care from cardiovascular point of view, D/C home as per the primary team Catrina Scruggs MD
[2017-10-31] MEDS: ALBUTEROL SO4 2.5/IPRATROPIUM 0.5 INH SOL 3 ML VIAL.NEB. NEB SCH ×2 (08:35→12:50)
[2017-10-31] MEDS: LORATADINE 10 MG TABLET PO SCH (09:08)
[2017-10-31] MEDS: HEPARIN NA (PORCINE) 5,000 UNITS/ML 1ML VIAL SQ SCH (09:08)
[2017-10-31] MEDS: predniSONE 20 MG TABLET (UD) PO SCH (09:08)
[2017-10-31] MEDS: LISINOPRIL 10 MG TABLET (FP) PO SCH (09:08)
[2017-10-31] MEDS: FLUoxetine HCL 20 MG CAPSULE (FP) PO SCH (09:08)
[2017-10-31] MEDS: ASPIRIN 81 MG CHEWABLE TABLETS PO SCH (09:08)
[2017-10-31] MEDS: TOPIRAMATE PO SCH (09:09)
[2017-10-31] MEDS: PHENYTOIN NA EXTENDED 100 MG CAPSULE (FP) PO SCH (09:10)
--- NOTE | 2017-10-31 11:21 | PN ---
Progress Note, Physician History of Present Illness: pulmonary alert,feeling better,-sob,less cough - Current Medication List Current Medications: Active Medications Acetaminophen (Tylenol -) 650 mg PO Q6H PRN PRN Reason: FEVER Last Admin: 10/30/17 21:34 Dose: 650 mg Albuterol/Ipratropium (Duoneb -) 1 amp NEB RQID [facility] Last Admin: 10/31/17 08:35 Dose: 1 amp Aspirin (Asa -) 81 mg PO DAILY [facility] Last Admin: 10/31/17 09:08 Dose: 81 mg Atorvastatin Calcium (Lipitor -) 20 mg PO HS [facility] Last Admin: 10/30/17 21:28 Dose: 20 mg Benzocaine/Menthol (Cepacol Lozenge -) 1 each MM PRN PRN PRN Reason: SORE THROAT Ergocalciferol (Drisdol -) 50,000 unit PO Th@1000 [facility] Fluoxetine HCl (Prozac -) 40 mg PO DAILY [facility] Last Admin: 10/31/17 09:08 Dose: 40 mg Gabapentin (Neurontin -) 300 mg PO TID [facility] Last Admin: 10/31/17 06:20 Dose: 300 mg Guaifenesin (Diabetic Tussin Dm -) 10 ml PO Q4H PRN PRN Reason: COUGH Heparin Sodium (Porcine) (Heparin -) 5,000 unit SQ BID [facility] Last Admin: 10/31/17 09:08 Dose: 5,000 unit Insulin Aspart (Novolog Vial Sliding Scale -) 1 vial SQ ACHS [facility] PRN Reason: Protocol Last Admin: 10/31/17 06:20 Dose: 4 units Insulin Detemir (Levemir Vial) 20 units SQ BID@0700,2200 [facility] Last Admin: 10/31/17 06:20 Dose: 20 units Levothyroxine Sodium (Synthroid -) 50 mcg PO DAILY@0700 [facility] Last Admin: 10/31/17 06:20 Dose: 50 mcg Lisinopril (Prinivil) 20 mg PO DAILY [facility] Last Admin: 10/31/17 09:08 Dose: 20 mg Loratadine (Claritin -) 10 mg PO DAILY [facility] Last Admin: 10/31/17 09:08 Dose: 10 mg Ondansetron HCl (Zofran Injection) 4 mg IVPUSH Q6H PRN PRN Reason: NAUSEA Phenytoin Sodium (Dilantin -) 300 mg PO DAILY [facility] Last Admin: 10/31/17 09:10 Dose: 300 mg Prednisone (Deltasone -) 40 mg PO DAILY [facility] Last Admin: 10/31/17 09:08 Dose: 40 mg Topiramate 100 mg/ Topiramate (25 mg) 125 mg PO BID [facility] Last Admin: 10/31/17 09:09 Dose: 125 mg - Objective Vital Signs: Vital Signs Temperature 97.6 F 10/31/17 07:26 Pulse Rate 85 10/31/17 07:26 Respiratory Rate 20 10/31/17 07:29 Blood Pressure 103/69 10/31/17 07:26 O2 Sat by Pulse Oximetry (%) 97 10/31/17 07:29 Constitutional: Yes: Well Nourished, Obese Eyes: Yes: WNL HENT: Yes: WNL Neck: Yes: WNL Cardiovascular: Yes: Regular Rate and Rhythm, S1, S2 Respiratory: Yes: Diminished Gastrointestinal: Yes: Normal Bowel Sounds, Soft Extremities: Yes: WNL Edema: No Labs: CBC, BMP 10/31/17 06:25 Problem List - Problems (1) Asthma Code(s): J45.909 - UNSPECIFIED ASTHMA, UNCOMPLICATED (2) COPD exacerbation Code(s): J44.1 - CHRONIC OBSTRUCTIVE PULMONARY DISEASE W (ACUTE) EXACERBATION (3) Dyspnea Code(s): R06.00 - DYSPNEA, UNSPECIFIED Qualifiers: Dyspnea type: unspecified Qualified Code(s): R06.00 - Dyspnea, unspecified (4) DVT prophylaxis Code(s): [id number] - (5) HTN (hypertension) Code(s): I10 - ESSENTIAL (PRIMARY) HYPERTENSION Qualifiers: Hypertension type: essential hypertension Qualified Code(s): I10 - Essential (primary) hypertension (6) Obesity, Class III, BMI 40-49.9 (morbid obesity) Code(s): E66.01 - MORBID (SEVERE) OBESITY DUE TO EXCESS CALORIES (7) Shortness of breath Code(s): R06.02 - SHORTNESS OF BREATH (8) Diabetes Code(s): E11.9 - TYPE 2 DIABETES MELLITUS WITHOUT COMPLICATIONS (9) Hypercholesterolemia Code(s): E78.00 - PURE HYPERCHOLESTEROLEMIA, UNSPECIFIED Assessment/Plan A/P Acute COPD IMPROVED LV Diastolic Dysfunction HTN DM Hypercholesterolemia Hypothyroidism Morbid Obesity Likely MARILU - prednisone - inhaled bronchodilators - O2 to keep SpO2 >90% - glucose control while on systemic steroids - DVT prophylaxis - will need outpt PFTs, PSG DR LOU
[2017-10-31] MEDS ORDERED: INSULIN (NOVOLOG) ASPART 100 UNITS/ML 10ML VIAL ONE (11:56)
--- NOTE | 2017-10-31 12:41 | DS ---
Physical Examination Vital Signs: Vital Signs Temperature 97.6 F 10/31/17 07:26 Pulse Rate 85 10/31/17 07:26 Respiratory Rate 20 10/31/17 07:29 Blood Pressure 103/69 10/31/17 07:26 O2 Sat by Pulse Oximetry (%) 97 10/31/17 07:29 Constitutional: Yes: No Distress Eyes: Yes: WNL HENT: Yes: WNL Neck: Yes: WNL Cardiovascular: Yes: WNL Respiratory: Yes: WNL Gastrointestinal: Yes: WNL Renal/: Yes: WNL Musculoskeletal: Yes: WNL Extremities: Yes: WNL Edema: No Peripheral Pulses WNL: Yes Integumentary: Yes: WNL Wound/Incision: Yes: Clean/Dry Neurological: Yes: WNL ...Motor Strength: WNL Psychiatric: Yes: WNL Labs: CBC, BMP 10/30/17 05:51 10/31/17 06:25 Discharge Summary Reason For Visit: ACUTE EXACERBATION OF CHR PULMONARY DISEASE Current Active Problems Asthma (Acute) COPD exacerbation (Acute) Diabetes (Acute) Dyspnea (Acute) Near syncope (Acute) Procedures: Principal: ct scan Hospital Course: acute exacerbation of asthma improved with solumedrol iv and nebs 02 spupport Condition: Fair - Instructions Diet, Activity, Other Instructions: ada low sodium see dr gann in 1 week [address] [facility] [phone] Referrals: Kingsley Gann MD [Staff Physician] - Disposition: HOME - Home Medications Comprehensive Discharge Medication List: Ambulatory Orders Fluoxetine HCl [Prozac -] 40 mg PO DAILY 09/15/14 Gabapentin [Neurontin -] 600 mg PO QID 09/15/14 Glenn-3 Fatty Acids [Glenn-3] 1,000 mg PO BID 09/15/14 Albuterol Sulfate Inhaler - [Ventolin HFA Inhaler -] 1 - 2 inh PO QID 03/15/16 Liraglutide [Victoza -] 1.8 mg SQ DAILY@1200 03/15/17 clonazePAM [Klonopin -] 0.5 mg PO BID PRN 05/12/17 Meclizine HCl [Antivert -] 12.5 mg PO Q6H PRN #20 tablet 06/27/17 Aspirin 81 mg PO DAILY 08/15/17 Ergocalciferol (Vitamin D2) [Vitamin D2] 50,000 units PO WEEKLY 08/15/17 Levothyroxine [Synthroid -] 50 mcg PO DAILY 08/15/17 Topiramate [Topamax] 150 mg PO BID 30 Days #60 tablet 08/15/17 Atorvastatin Ca [Lipitor] 20 mg PO HS 09/09/17 Insulin (LOG) Aspart [NovoLOG -] 15 units SQ TID 09/09/17 Tiotropium [place] [Spiriva] 1 inh PO DAILY 09/09/17 Insulin (Levemir) [Levemir Vial] 15 units SQ HS #10 ml 09/11/17 Loratadine [Claritin] 10 mg PO DAILY 09/11/17 Phenytoin Na Extended [Dilantin -] 300 mg PO DAILY #12 capsule 09/26/17 Hydrocodone/Acetaminophen [Hydrocodone-Acetamin 10-325 mg] 1 each PO BID PRN # 60 tablet MDD 2 09/29/17 Albuterol 2.5/Ipratropium 0.5 [Duoneb -] 1 amp NEB RQID #120 amp 10/31/17 Gabapentin [Neurontin -] 300 mg PO TID #90 capsule 10/31/17 Insulin Glargine,Hum.rec.anlog [Lantus Solostar PEN -] 20 units SQ BID #6 ins Topiramate [Topamax -] 125 mg PO BID #60 tablet 10/31/17 predniSONE [Deltasone -] 40 mg PO DAILY #10 tablet 10/31/17
--- NOTE | 2017-10-31 14:33 | PN ---
Progress Note (short form) - Note Progress Note: Renal follow up for ALEJANDRO Pt seen and examined at the bedside awake and alert no complaints Vital Signs Temperature 97.6 F 10/31/17 07:26 Pulse Rate 85 10/31/17 07:26 Respiratory Rate 20 10/31/17 07:29 Blood Pressure 103/69 10/31/17 07:26 O2 Sat by Pulse Oximetry (%) 97 10/31/17 07:29 Intake & Output 10/28/17 10/29/17 10/30/17 10/31/17 23:59 23:59 23:59 23:59 Intake Total 1940 2170 3900 900 Balance 1940 2170 3900 900 Weight 107.048 kg NAD awake and alert RRR CTA Obese no LE edema CBC, BMP 10/30/17 05:51 10/31/17 06:25 52 year old woman with PMhx of DM, Hypothryfodism, Asthma, COPD, MARILU, Depression , CVA who presented with SOB and admitted for COPD/Asthma Exacerbation with ALEJANDRO. #ALEJANDRO secondary to volume depletion #COPD/Asthma Exacerbation Renal function improved and stable off IVF no need for renal follow up as outpatient discussed importance of good oral hydration as outpatient stable for discharge Ervin Rosas DO
[2017-11-02] MEDS ORDERED: ERGOCALCIFEROL (VITAMIN D2) 50,000 UNIT CAPSULE (FP) PO SCH (10:00)
== END 2017-10-31 13:34 | disposition home or self-care (01) | DRG 140 ==
LOC: JER 16:54 → JERBED 21:24 → OBSVTOIN 10-27 14:28 → J5S 10-27 17:20 → J4W 10-27 21:30
PROVIDERS: ADMIT Internal Medicine; ATTEND Family Medicine
DX: J44.1 Chronic obstructive pulmonary disease with (acute) exacerbation (principal); N17.9 Acute kidney failure, unspecified; I47.2 Ventricular tachycardia; I69.354 Hemiplegia and hemiparesis following cerebral infarction affecting left non-dominant side; Z68.42 Body mass index [BMI] 45.0-49.9, adult; E66.01 Morbid (severe) obesity due to excess calories; E11.65 Type 2 diabetes mellitus with hyperglycemia; R55 Syncope and collapse; E11.22 Type 2 diabetes mellitus with diabetic chronic kidney disease; E03.9 Hypothyroidism, unspecified; F32.9 Major depressive disorder, single episode, unspecified; F41.9 Anxiety disorder, unspecified; Z79.4 Long term (current) use of insulin; Z87.891 Personal history of nicotine dependence; G47.33 Obstructive sleep apnea (adult) (pediatric); E78.00 Pure hypercholesterolemia, unspecified; R07.89 Other chest pain; I12.9 Hypertensive chronic kidney disease with stage 1 through stage 4 chronic kidney disease, or unspecified chronic kidney disease; N18.3 Chronic kidney disease, stage 3 (moderate); E86.9 Volume depletion, unspecified
CPT/HCPCS: 36415; 70450-TC; 71045-TC-FY; 72125-TC; 80048; 80053; 81003; 81015; 82550; 82553; 82803; 82962; 83036; 83690; 83735; 83880; 84300; 84443; 84484; 84702; 84703; 85025; 85027; 93005; 93010; 94640; 99285-25; G0378; J1644; J7030

== ENCOUNTER 2017-12-08 10:57 | Observation (INO) | payer OTHER ==
--- NOTE | 2017-12-08 11:22 | PDOC ---
Attending Attestation - HPI HPI: 12/08/17 12:07 The patient is a 52 year old female accompanied by health aide, with a significant PMH of seizures, DM, COPD, anxiety, HTN, CVA, athma who presents to the emergency department for evaluation s/p witnessed seizure this morning at 10 am. As per the patients daughter on telephone, the patient was standing in the living room when she grabbed onto the daughter and the daughter guided the patient to the floor. The patient then had a seizure typical of her normal seizures which lasted for approx. 2 minutes. She states the patient did not hit her head but did hit her right elbow when going onto the ground. The patient's aide states she was in the restroom during the seizure but came back into the living room while the patient was on the floor. The patient at presentation reports some mild chest tightness and shortness of breath which she states may be related to her recent COPD diagnosis. The patient denies tongue biting, chest pain, palpitations, headache and dizziness. Denies fever, chills, nausea, vomit, diarrhea and constipation. Denies dysuria, frequency, urgency and hematuria. Allergies: Iodinated contrast - Oral and IV dye, azithromycin, tramadol - Physicial Exam PE: 12/08/17 12:08 Vitals: Triage vital signs reviewed General Appearance: No acute distress, well nourished, well developed Head: Atraumatic Eyes: Pupils equal reactive round, extraocular movement intact Ears: TM's normal bilaterally Nose: Nares patent bilaterally; no nasal congestion Throat: Posterior oropharynx without erythema, mucous membranes moist Neck: Supple; No nuchal rigidity Chest Wall: Nontender Cardiac: Regular rate and rhythm, no murmurs, no rubs, no gallops Lungs: Clear to auscultation bilateral, good air movement bilaterally Abdomen: Soft, nondistended, normal bowel sounds, nontender to palpation Rectal: Exam deferred Extremities: (+) 1+ Edema bilaterally. Full range of motion to all extremities, no cyanosis, no clubbing. Skin: Warm and dry, no rashes or lesions, no rash, no petechiae Neuro: AOX3; Cranial Nerves 2-12 grossly intact, Strength intact to all extremities, Sensation intact to all extremities. Psych: Normal mood, normal affect - Medical Decision Making 12/08/17 12:09 The patient is a 52 year old female accompanied by health aide, with a significant PMH of seizures, DM, COPD, anxiety, HTN, CVA, athma who presents to the emergency department for evaluation s/p witnessed seizure this morning at 10 am. Plan: EKG, Labs, Chest x-ray. Documentation prepared by Arthur Goins, acting as medical technician for Adan Patel MD. <Arthur Goins - Last Filed: 12/08/17 12:12> - Resident Resident Name: Keo Mustafa - ED Attending Attestation I have performed the following: I have examined & evaluated the patient, The case was reviewed & discussed with the resident, I agree w/resident's findings & plan, Exceptions are as noted - Medical Decision Making Witnessed seizure this morning. Now complaining of mild chest pain shortness of breath. Labs unremarkable normal neurologic examination. Given chest pain shortness of breath we'll observe overnight serial troponins and further management. <Adan Patel - Last Filed: 12/08/17 19:25>
--- NOTE | 2017-12-08 11:34 | PDOC ---
History of Present Illness - General Chief Complaint: Seizure Stated Complaint: SEIZURE Time Seen by Provider: 12/08/17 11:07 History Source: Patient, EMS Exam Limitations: No Limitations - History of Present Illness Initial Comments: 12/08/17 11:15 The patient is a 52F with a PMH of seizures, HTN, DM, CVA, and COPD/Asthma who presents to the ER via EMS after having a witnessed seizure. The patient is with an aide. EMS states that the patient had a witnessed seizure by the patient 's daughter. She was sitting in a chair and began to slouch and had tonic- clonic movements. The seizure lasted 2 minutes. The patient does not recall what happened but was confused when she awoke, then slowly came to. She denies any bowel/bladder incontinence and denies any tongue biting. The patient's last seizure was a "few months" ago. She takes all of her medications. She denies any fever, chills, nausea, vomiting, but describes chest "tightness" since yesterday that is worse with deep breathing. Neuro: Dr. Colmenares Past History - Past Medical History Allergies/Adverse Reactions: Allergies Allergy/AdvReac Type Severity Reaction Status Date / Time Iodinated Contrast- Oral and Allergy Intermediate Itching Verified 11/18/17 12: 11 IV Dye [Iodinated Contrast Media - IV Dye] azithromycin AdvReac Intermediate Itching Verified 11/18/17 12:11 tramadol AdvReac Verified 11/18/17 12:11 Home Medications: Ambulatory Orders Fluoxetine HCl [Prozac -] 40 mg PO DAILY 09/15/14 Gabapentin [Neurontin -] 600 mg PO TID 09/15/14 [place]-3 Fatty Acids [[place]-3] 1,000 mg PO BID 09/15/14 Albuterol Sulfate Inhaler - [Ventolin HFA Inhaler -] 1 - 2 inh PO QID 03/15/16 Liraglutide [Victoza -] 1.8 mg SQ DAILY@1200 03/15/17 clonazePAM [Klonopin -] 0.5 mg PO BID PRN 05/12/17 Meclizine HCl [Antivert -] 12.5 mg PO Q6H PRN #20 tablet 06/27/17 Aspirin 81 mg PO DAILY 08/15/17 Ergocalciferol (Vitamin D2) [Vitamin D2] 50,000 units PO WEEKLY 08/15/17 Levothyroxine [Synthroid -] 50 mcg PO DAILY 08/15/17 Atorvastatin Ca [Lipitor] 20 mg PO HS 09/09/17 Tiotropium [place] [Spiriva] 1 inh PO DAILY 09/09/17 Loratadine [Claritin] 10 mg PO DAILY 09/11/17 Albuterol 2.5/Ipratropium 0.5 [Duoneb -] 1 amp NEB RQID #120 amp 10/31/17 Topiramate [Topamax -] 125 mg PO BID #60 tablet 10/31/17 Diclofenac Sodium [Voltaren] 2 gm TP TID PRN 11/30/17 Hydrocodone/Acetaminophen [Hydrocodone-Acetamin 10-325 mg] 1 each PO BID PRN # 60 tablet MDD 2 11/30/17 Insulin (Novolog) [Novolog Flexpen] 0 units SQ BIDAC 11/30/17 Insulin Glargine,Hum.rec.anlog [Lantus Solostar] 50 unit SQ DAILY 11/30/17 Furosemide [Lasix] 20 mg PO DAILY 12/08/17 Lisinopril 5 mg PO DAILY 12/08/17 Asthma: Yes Cardiac Disorders: No 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) COPD: Yes CHF: No Dementia: No Diabetes: Yes (IDDM) GI Disorders: No Disorders: No HTN: Yes Hypercholesterolemia: Yes Liver Disease: Yes (hep C - treated) Psychiatric Problems: Yes (depression, anxiety, BIPOLAR) Seizures: Yes Thyroid Disease: Yes (hypothyroid) - Surgical History Abdominal Surgery: Yes (UMBILICAL HERNIA) - Suicide/Smoking/Psychosocial Hx Smoking History: Former smoker Have you smoked in the past 12 months: No If you are a former smoker, when did you quit?: 2014 'Breaking Loose' booklet given: 09/16/14 Hx Alcohol Use: No Drug/Substance Use Hx: No Substance Use Type: None Hx Substance Use Treatment: No Review of Systems - Review of Systems Able to Perform ROS?: Yes Comments:: 12/08/17 11:34 GENERAL/CONSTITUTIONAL: No fever or chills. No weakness. HEAD, EYES, EARS, NOSE AND THROAT: No change in vision. No ear pain or discharge. No sore throat. CARDIOVASCULAR: Positive for chest tightness. No chest pain, palpitations, or lightheadedness. RESPIRATORY: No cough, wheezing, shortness of breath, or hemoptysis. GASTROINTESTINAL: No nausea, vomiting, diarrhea, constipation, or abdominal pain. GENITOURINARY: No dysuria, frequency, hematuria, or change in urination. MUSCULOSKELETAL: No joint or muscle swelling or pain. No neck or back pain. SKIN: No rash or lesions. NEUROLOGIC: Positive for seizure. No headache, numbness, tingling, weakness, loss of consciousness, or change in strength/sensation. ENDOCRINE: No increased thirst. No abnormal weight change. HEMATOLOGIC/LYMPHATIC: No anemia, easy bleeding, or history of blood clots. ALLERGIC/IMMUNOLOGIC: No hives or skin allergy. Is the patient limited Pakistani proficient: No *Physical Exam - Physical Exam Comments: 12/08/17 11:34 GENERAL: Well developed, well nourished. Awake and alert. No acute distress. HEENT: Normocephalic, atraumatic. Hearing grossly normal. Moist mucous membranes. PERRLA, EOMI. No conjunctival pallor. Sclera are non-icteric. Oropharynx is clear. NECK: Supple. Full ROM. CARDIOVASCULAR: Regular rate and rhythm. No murmurs, rubs, or gallops. PULMONARY: No evidence of respiratory distress. Lungs clear to auscultation bilaterally. No wheezing, rales or rhonchi. ABDOMINAL: Soft. Non-tender. Non-distended. No rebound or guarding. GENITOURINARY: No CVA tenderness bilaterally. MUSCULOSKELETAL: Normal range of motion at all joints. No bony deformities or tenderness. EXTREMITIES: No cyanosis. No clubbing. No edema. No calf tenderness. SKIN: Warm and dry. Normal capillary refill. No rashes. No jaundice. NEUROLOGICAL: Alert, awake, appropriate. Cranial nerves 2-12 intact. No deficits to light touch and temperature in face, upper extremities and lower extremities. No motor deficits in the in face, upper extremities and lower extremities. Finger to nose normal bilaterally. Normal speech. Gait is normal without ataxia. PSYCHIATRIC: Cooperative. Good eye contact. Appropriate mood and affect. Heart Score/ECG Review #1 General ECG Interpretation: Sinus Rhythm, Normal Rate, Normal Intervals, No acute ischemic changes Compared to previous ECG there are: No significant change 12/08/17 11:49 Vent Rate 94 CO 156 QRS 88 QTc 462 No acute ischemic changes No KIANA or STD ED Treatment Course - LABORATORY CBC & Chemistry Diagram: 12/08/17 12:05 12/08/17 12:05 - RADIOLOGY Radiology Studies Ordered: Category Date Time Status CHEST X-RAY PORTABLE* [RAD] Stat Radiology 12/08/17 11:10 Ordered Medical Decision Making - Medical Decision Making 12/08/17 11:49 The patient is a 52F with a PMH of seizures, HTN, COPD, DM who presents to the ER s/p seizure. It was witnessed by her daughter. Pt is stable in the ER. Neuro exam unremarkable. Will order bloodwork. I have low suspicion for mass and/or bleed as the patient has a negative neurologic exam and no focal areas of weakness, numbness, or tingling. The patient has a supple neck with no stiffness , is afebrile, and has no rashes/petechiae, with no signs of meningismus. Pending EKG, trop, CBC, CMP. 12/08/17 13:04 CBC significant for anemia of 9.8 from 11.8 1 month ago. Stool occult negative. Will page hospitalist for admission. Pt continues to complain of chest pressure. Trop negative. EKG NSR. 12/08/17 13:22 I have endorsed the patient to Dr. Kate for admission under Dr. Zarate for a tele bed. 12/08/17 15:59 Inpatient team is requesting for a med-surg bed as they do not believe the patient's chest tightness is cardiac in nature. *DC/Admit/Observation/Transfer Diagnosis at time of Disposition: Anemia Qualifiers: Anemia type: unspecified type Qualified Code(s): D64.9 - Anemia, unspecified - Discharge Dispostion Condition at time of disposition: Stable Decision to Admit order: Yes - Referrals - Patient Instructions - Post Discharge Activity
[2017-12-08 12:17] LABS: BASO % 0.5 % (0-2.0); EOS % 2.4 % (0-4.5); HEMATOCRIT 27.8 % (32.4-45.2); HEMOGLOBIN 9.3 GM/dL (10.7-15.3); LYMPH % 22.9 % (8-40); MCHC 33.5 g/dl (32.0-36.0); MEAN CELL VOLUME 77.7 fl (80-96); MEAN PLT VOLUME 9.4 fl (7.5-11.1); MONO % 7.7 % (3.8-10.2); NEUT % 66.5 % (42.8-82.8); PLATELET COUNT 270 K/MM3 (134-434); RBC 3.57 M/mm3 (3.60-5.2); RDW 15.3 % (11.6-15.6); WHITE BLOOD COUNT 8.6 K/mm3 (4.0-10.0)
[2017-12-08 12:38] LABS: ALBUMIN 3.2 g/dl (3.4-5.0); ANION GAP 6 (8-16); BILIRUBIN,TOTAL 0.2 mg/dL (0.2-1.0); BLOOD UREA NITROGEN 12 mg/dL (7-18); CALCIUM 8.2 mg/dL (8.5-10.1); CHLORIDE 107 mmol/L (98-107); CO2 26 mmol/L (21-32); CREATININE 0.7 mg/dL (0.55-1.02); GLUCOSE,RANDOM 233 mg/dL (74-106); SGPT/ALT 18 U/L (12-78); SODIUM 139 mmol/L (136-145); TOT PROT 6.7 g/dl (6.4-8.2)
[2017-12-08 12:40] LABS: ALK PHOS 76 U/L (45-117); N-TERMINAL BNP 48.23 pg/ml (5-125)
[2017-12-08 12:42] LABS: POTASSIUM 4.1 mmol/L (3.5-5.1); SGOT/AST 14 U/L (15-37)
[2017-12-08] MEDS ORDERED: ALBUTEROL SO4 18 GM HFA INHALER IH PRN ×2 (15:26→18:00)
--- NOTE | 2017-12-08 15:39 | HP ---
<Soila Kate - Last Filed: 12/08/17 15:05> CHIEF COMPLAINT: seizures PCP: Irma MICHAEL HISTORY OF PRESENT ILLNESS: The patient is a 52 year old female with a significant PMH of seizures, DM, COPD , anxiety, HTN, CHF, CVA in 2015, asthma who presents to the hospital after witnessed seizure this morning. The patient doesn't remember what happened. As per medical documentation, she was standing in the living room, when she grabbed onto the daughter and the daughter guided the patient to the floor. She states the patient did not hit her head but did hit her right elbow when going onto the ground. She denies urination, tongue biting, defecation. The patient has Neurologist- Dr Wagner, that she follows as outpatient. She denies changing medications for seizures recently. Last time she has seizure was several months ago, but she doesn't remember exactly.When I saw the patient she was complaining of dizziness and mild shortness of breath, dry cough which she states may be related to her recent COPD diagnosis. Recently she states that she feels more swollen and gained weight. She visited Dr Hugo yesterday and was started on Lasix 20 mg. Denies fever, chills, nausea, vomit, diarrhea and constipation.Denies dysuria, frequency, urgency and hematuria. ER course was notable for: (1)CXR (2) Hgb 9.3, FOBT neg PAST MEDICAL HISTORY: as above PAST SURGICAL HISTORY: c section Social History: Smoking:quit 4 years ago Alcohol:denies Drugs:denies Family History: Mother: DM, ESRD, HTN Father;Asthma, alcohol Siblings: DM, Asthma, Heart disease She lives at home and has visiting nurse. Allergies Iodinated Contrast- Oral and IV Dye [Iodinated Contrast Media - IV Dye] Allergy (Intermediate, Verified 11/18/17 12:11) Itching azithromycin Adverse Reaction (Intermediate, Verified 11/18/17 12:11) Itching 10/26/17 SUSPECTED ADR TO ZITHROMAX . RX: MILD: ITCHING,NAUSEA. tramadol Adverse Reaction (Verified 11/18/17 12:11) HOME MEDICATIONS: Home Medications Medication Instructions Recorded Fluoxetine HCl [Prozac -] 40 mg PO DAILY 09/15/14 Gabapentin [Neurontin -] 600 mg PO TID 09/15/14 [place]-3 Fatty Acids [[place]-3] 1,000 mg PO BID 09/15/14 Albuterol Sulfate Inhaler - 1 - 2 inh PO QID 03/15/16 [Ventolin HFA Inhaler -] Liraglutide [Victoza -] 1.8 mg SQ DAILY@1200 03/15/17 clonazePAM [Klonopin -] 0.5 mg PO BID PRN 05/12/17 Meclizine HCl [Antivert -] 12.5 mg PO Q6H PRN #20 tablet 06/27/17 Aspirin 81 mg PO DAILY 08/15/17 Ergocalciferol (Vitamin D2) 50,000 units PO WEEKLY 08/15/17 [Vitamin D2] Levothyroxine [Synthroid -] 50 mcg PO DAILY 08/15/17 Atorvastatin Ca [Lipitor] 20 mg PO HS 09/09/17 Tiotropium [place] [Spiriva] 1 inh PO DAILY 09/09/17 Loratadine [Claritin] 10 mg PO DAILY 09/11/17 Albuterol 2.5/Ipratropium 0.5 1 amp NEB RQID #120 amp 10/31/17 [Duoneb -] Topiramate [Topamax -] 125 mg PO BID #60 tablet 10/31/17 Diclofenac Sodium [Voltaren] 2 gm TP TID PRN 11/30/17 Hydrocodone/Acetaminophen 1 each PO BID PRN #60 tablet MDD 2 11/30/17 [Hydrocodone-Acetamin 10-325 mg] Insulin (Novolog) [Novolog Flexpen] 0 units SQ BIDAC 11/30/17 Insulin Glargine,Hum.rec.anlog 50 unit SQ DAILY 11/30/17 [Lantus Solostar] Furosemide [Lasix] 20 mg PO DAILY 12/08/17 Lisinopril 5 mg PO DAILY 12/08/17 REVIEW OF SYSTEMS CONSTITUTIONAL: weight change Absent: fever, chills, diaphoresis, generalized weakness, malaise, loss of appetite HEENT: Absent: rhinorrhea, nasal congestion, throat pain, throat swelling, difficulty swallowing, mouth swelling, ear pain, eye pain, visual changes CARDIOVASCULAR: palpitations, Absent: chest pain, syncope, irregular heart rate, lightheadedness, peripheral edema RESPIRATORY: shortness of breath, cough Absent:dyspnea with exertion, orthopnea, wheezing, stridor, hemoptysis GASTROINTESTINAL: Absent: abdominal pain, abdominal distension, nausea, vomiting, diarrhea, constipation GENITOURINARY: Absent: dysuria, frequency, urgency, hesitancy, hematuria, flank pain, genital pain SKIN: itching Absent: rash, ENDOCRINE: Absent: unexplained weight gain, unexplained weight loss, heat intolerance, cold intolerance NEUROLOGIC: seizure Absent: headache, focal weakness or paresthesias, dizziness, unsteady gait, PSYCHIATRIC: Absent: anxiety, depression PHYSICAL EXAMINATION Vital Signs - 24 hr 12/08/17 11:07 Temperature 98.2 F Pulse Rate 95 H Respiratory 16 Rate Blood Pressure 124/68 O2 Sat by Pulse 97 Oximetry (%) GENERAL: Awake, alert, and fully oriented, in no acute distress, lying in bed. HEAD: Normal with no signs of trauma. EYES: Pupils equal, round and reactive to light, extraocular movements intact, sclera anicteric, conjunctiva clear. EARS, NOSE, THROAT: Ears normal, nares patent, oropharynx clear without exudates. Moist mucous membranes. NECK: Normal range of motion, supple without lymphadenopathy, JVD, or masses. LUNGS: Breath sounds equal, diminished to auscultation bilaterally. No wheezes. No accessory muscle use. HEART: Regular rate and rhythm, normal S1 and S2 without murmur, rub or gallop. ABDOMEN: Obese, soft, nontender, not distended, normoactive bowel sounds, no guarding, no rebound, no masses. MUSCULOSKELETAL: Normal range of motion at all joints. No bony deformities or tenderness. No CVA tenderness. UPPER EXTREMITIES: 2+ pulses, warm, No peripheral edema. LOWER EXTREMITIES: 2+ pulses, 1+ peripheral edema. NEUROLOGICAL: Normal speech, no dacial asymmetry, LUE 4/5, all other 5/5, sensation to light touch intact, gait not observed. PSYCHIATRIC: Cooperative. Good eye contact. Appropriate mood and affect. SKIN: Warm, dry, normal turgor, no rashes or lesions. Laboratory Results - last 24 hr 12/08/17 12/08/17 12/08/17 11:03 12:05 12:05 WBC 8.6 RBC 3.57 L Hgb 9.3 L D Hct 27.8 L D MCV 77.7 L MCH 26.0 MCHC 33.5 RDW 15.3 Plt Count 270 D MPV 9.4 Neutrophils % 66.5 Lymphocytes % 22.9 Monocytes % 7.7 Eosinophils % 2.4 Basophils % 0.5 Sodium 139 Potassium 4.1 Chloride 107 Carbon Dioxide 26 Anion Gap 6 L BUN 12 Creatinine 0.7 Creat Clearance w eGFR > 60 POC Glucometer [phone] Random Glucose 233 H Calcium 8.2 L Total Bilirubin 0.2 D AST 14 L ALT 18 Alkaline Phosphatase 76 Creatine Kinase 54 Troponin I < 0.02 B-Natriuretic Peptide 48.23 Total Protein 6.7 Albumin 3.2 L Serum , Qual Stool Occult Blood 12/08/17 12/08/17 12/08/17 12:05 12:05 12:56 WBC RBC Hgb Hct MCV MCH MCHC RDW Plt Count MPV Neutrophils % Lymphocytes % Monocytes % Eosinophils % Basophils % Sodium Potassium Chloride Carbon Dioxide Anion Gap BUN Creatinine Creat Clearance w eGFR POC Glucometer Random Glucose Calcium Total Bilirubin AST ALT Alkaline Phosphatase Creatine Kinase Troponin I B-Natriuretic Peptide Cancelled Total Protein Albumin Serum , Qual Negative Stool Occult Blood Negative ASSESSMENT/PLAN: The patient is a 52 year old female with a significant PMH of seizures, DM, COPD , anxiety, HTN, CVA in 2014, asthma who presents to the hospital after witnessed seizure this morning. She is admitted for observation s/p seizure. S/P seizure: -possibly related to new diagnosis of COPD, viral illness. No more episodes in the hospital -Neurology consulted: Dr Wagner -will monitor -resumed home medications: Topamax 150 mg daily Anemia: -Hgb is 9.3, last one was 11.9 month ago -iron studies ordered -she had vaginal bleeding last month and is following OBGYN COPD: -newly diagnosed, stable -continue Albuterol Neb, Duoneb -not on Prednisone Diastolic CHF: - Continue lisinopril 5 mg - ASA-ther patient doesnt take it HLD - cont Lipitor 20 mg Anxiety - cont Klonopin and prozac, DM II , - Levemir 50 units AM - ISS, ACHS - BGM ACHS Hypothroridism - Synthroid 25 mcg Dispo: med surg. Medications confirmed with the pt. She has the list with her. Problem List - Problem (1) Anemia Code(s): D64.9 - ANEMIA, UNSPECIFIED QualifierTitle: Anemia type: unspecified type Qualified Code(s): D64.9 - Anemia, unspecified (2) Asthma Code(s): J45.909 - UNSPECIFIED ASTHMA, UNCOMPLICATED QualifierTitle: Asthma severity: unspecified severity (3) COPD exacerbation Code(s): J44.1 - CHRONIC OBSTRUCTIVE PULMONARY DISEASE W (ACUTE) EXACERBATION (4) Anxiety Code(s): F41.9 - ANXIETY DISORDER, UNSPECIFIED (5) Bipolar disorder Code(s): F31.9 - BIPOLAR DISORDER, UNSPECIFIED QualifierTitle: Active/Remission status: remission status unspecified Qualified Code(s): F31.9 - Bipolar disorder, unspecified (6) Chronic renal insufficiency, stage III (moderate) Code(s): N18.3 - CHRONIC KIDNEY DISEASE, STAGE 3 (MODERATE) (7) Diabetes mellitus, insulin dependent (IDDM), uncontrolled Code(s): E10.65 - TYPE 1 DIABETES MELLITUS WITH HYPERGLYCEMIA QualifierTitle: Diabetes mellitus complication status: without complication Qualified Code(s): E10.65 - Type 1 diabetes mellitus with hyperglycemia (8) Epilepsy Code(s): G40.909 - EPILEPSY, UNSP, NOT INTRACTABLE, WITHOUT STATUS EPILEPTICUS (9) HTN (hypertension) Code(s): I10 - ESSENTIAL (PRIMARY) HYPERTENSION QualifierTitle: Hypertension type: essential hypertension Qualified Code( s): I10 - Essential (primary) hypertension (10) History of stroke Code(s): Z86.73 - PRSNL HX OF TIA (TIA), AND CEREB INFRC W/O RESID DEFICITS (11) MARILU (obstructive sleep apnea) Code(s): G47.33 - OBSTRUCTIVE SLEEP APNEA (ADULT) (PEDIATRIC) (12) Obesity, Class III, BMI 40-49.9 (morbid obesity) Code(s): E66.01 - MORBID (SEVERE) OBESITY DUE TO EXCESS CALORIES (13) Vitamin D deficiency Code(s): E55.9 - VITAMIN D DEFICIENCY, UNSPECIFIED (14) Hyperglycemia Code(s): R73.9 - HYPERGLYCEMIA, UNSPECIFIED (15) Shortness of breath Code(s): R06.02 - SHORTNESS OF BREATH Visit type - Emergency Visit Emergency Visit: Yes ED Registration Date: 12/08/17 Care time: The patient presented to the Emergency Department on the above date and was hospitalized for further evaluation of their emergent condition. - New Patient This patient is new to me today: Yes Date on this admission: 12/08/17 - Critical Care Critical Care patient: No Hospitalist Screening - Colonoscopy Questionnaire Colonoscopy Questionnaire: Colonoscopy Questionnaire - Patient: 50 - 75 years old and never had a screening colonoscopy: No History of colon or rectal polyps, or CA: No History of IBD, Crohn's disease or UC: No History of abdominal radiation therapy as a child: No - Relative: 1 with colon or rectal CA, or polyps at age 60 or younger: No Colon or rectal CA diagnosed at age 45 or younger: No Multiple relatives with colon or rectal CA: No - Outcome: Screening Result: Negative Screen <Shabnam Rodriguez - Last Filed: 12/08/17 19:59> As per aid, patient had a tonic clonic seizure, her last seizure was 3 months ago. will monitor Dr. Wagner for consult. Discussed with will follow the patient , and continue Topamax for now. Vital Signs Temperature 98.6 F 12/08/17 19:17 Pulse Rate 74 12/08/17 19:17 Respiratory Rate 16 12/08/17 19:17 Blood Pressure 141/61 12/08/17 19:17 O2 Sat by Pulse Oximetry (%) 96 12/08/17 19:17 CBCD WBC 8.6 K/mm3 (4.0-10.0) 12/08/17 12:05 RBC 3.57 M/mm3 (3.60-5.2) L 12/08/17 12:05 Hgb 9.3 GM/dL (10.7-15.3) L D 12/08/17 12:05 Hct 27.8 % (32.4-45.2) L D 12/08/17 12:05 MCV 77.7 fl (80-96) L 12/08/17 12:05 MCHC 33.5 g/dl (32.0-36.0) 12/08/17 12:05 RDW 15.3 % (11.6-15.6) 12/08/17 12:05 Plt Count 270 K/MM3 (134-434) D 12/08/17 12:05 MPV 9.4 fl (7.5-11.1) 12/08/17 12:05 CMP Sodium 139 mmol/L (136-145) 12/08/17 12:05 Potassium 4.1 mmol/L (3.5-5.1) 12/08/17 12:05 Chloride 107 mmol/L (98-107) 12/08/17 12:05 Carbon Dioxide 26 mmol/L (21-32) 12/08/17 12:05 Anion Gap 6 (8-16) L 12/08/17 12:05 BUN 12 mg/dL (7-18) 12/08/17 12:05 Creatinine 0.7 mg/dL (0.55-1.02) 12/08/17 12:05 Creat Clearance w eGFR > 60 (>60) 12/08/17 12:05 Random Glucose 233 mg/dL (74-106) H 12/08/17 12:05 Calcium 8.2 mg/dL (8.5-10.1) L 12/08/17 12:05 Total Bilirubin 0.2 mg/dL (0.2-1.0) D 12/08/17 12:05 AST 14 U/L (15-37) L 12/08/17 12:05 ALT 18 U/L (12-78) 12/08/17 12:05 Alkaline Phosphatase 76 U/L (45-117) 12/08/17 12:05 Total Protein 6.7 g/dl (6.4-8.2) 12/08/17 12:05 Albumin 3.2 g/dl (3.4-5.0) L 12/08/17 12:05 CARDIAC ENZYMES Creatine Kinase 54 IU/L (26-192) 12/08/17 12:05 Troponin I < 0.02 ng/ml (0.00-0.05) 12/08/17 12:05 Current Medications Generic Name Dose Route Start Last Admin Trade Name Freq PRN Reason Stop Dose Admin Acetaminophen 325 mg 12/08/17 15:53 Tylenol - PO BID PRN PAIN LEVEL 6-10 Albuterol Sulfate 1 puff 12/08/17 18:00 Ventolin Hfa Inhaler - IH QID PRN SHORTNESS OF BREATH Albuterol Sulfate 2 puff 12/08/17 15:26 Ventolin Hfa Inhaler - IH QID PRN SHORTNESS OF BREATH Albuterol/Ipratropium 1 amp 12/08/17 16:00 12/08/17 16:04 Duoneb - NEB 1 amp RQID [facility] Administration Atorvastatin Calcium 20 mg 12/08/17 22:00 Lipitor - PO HS [facility] Clonazepam 0.5 mg 12/08/17 22:00 Klonopin - PO BID [facility] Fluoxetine HCl 40 mg 12/09/17 10:00 Prozac - PO DAILY [facility] Gabapentin 600 mg 12/08/17 22:00 Neurontin - PO TID [facility] Heparin Sodium (Porcine) 5,000 unit 12/08/17 22:00 Heparin - SQ BID [facility] Insulin Aspart 1 vial 12/08/17 16:30 12/08/17 17:01 Novolog Vial Sliding Scale - SQ 6 unit ACHS [facility] Administration Protocol Insulin Detemir 50 units 12/09/17 07:00 Levemir Vial SQ DAILY@0700 [facility] Levothyroxine Sodium 25 mcg 12/09/17 07:00 Synthroid - PO DAILY@0700 [facility] Liraglutide 1.8 mg 12/09/17 12:00 Victoza - SQ DAILY@1200 [facility] Lisinopril 5 mg 12/09/17 10:00 Prinivil PO DAILY [facility] Loratadine 10 mg 12/09/17 10:00 Claritin - PO DAILY [facility] [id number] Ethyl Esters 1 gm 12/08/17 22:00 Lovaza - PO BID [facility] Oxycodone HCl 5 mg 12/08/17 15:52 Roxicodone - PO BID PRN PAIN LEVEL 6-10 Topiramate 150 mg 12/08/17 22:00 Topamax - PO BID [facility] Home Medications Medication Instructions Recorded Fluoxetine HCl [Prozac -] 40 mg PO DAILY 09/15/14 Gabapentin [Neurontin -] 600 mg PO TID 09/15/14 [place]-3 Fatty Acids [[place]-3] 1,000 mg PO BID 09/15/14 Albuterol Sulfate Inhaler - 1 - 2 inh PO QID 03/15/16 [Ventolin HFA Inhaler -] Liraglutide [Victoza -] 1.8 mg SQ DAILY@1200 03/15/17 clonazePAM [Klonopin -] 0.5 mg PO BID PRN 05/12/17 Meclizine HCl [Antivert -] 12.5 mg PO Q6H PRN #20 tablet 06/27/17 Aspirin 81 mg PO DAILY 08/15/17 Ergocalciferol (Vitamin D2) 50,000 units PO WEEKLY 08/15/17 [Vitamin D2] Levothyroxine [Synthroid -] 50 mcg PO DAILY 08/15/17 Atorvastatin Ca [Lipitor] 20 mg PO HS 09/09/17 Tiotropium [place] [Spiriva] 1 inh PO DAILY 09/09/17 Loratadine [Claritin] 10 mg PO DAILY 09/11/17 Albuterol 2.5/Ipratropium 0.5 1 amp NEB RQID #120 amp 10/31/17 [Duoneb -] Topiramate [Topamax -] 125 mg PO BID #60 tablet 10/31/17 Diclofenac Sodium [Voltaren] 2 gm TP TID PRN 11/30/17 Hydrocodone/Acetaminophen 1 each PO BID PRN #60 tablet MDD 2 11/30/17 [Hydrocodone-Acetamin 10-325 mg] Insulin (Novolog) [Novolog Flexpen] 0 units SQ BIDAC 11/30/17 Insulin Glargine,Hum.rec.anlog 50 unit SQ DAILY 11/30/17 [Lantus Solostar] Furosemide [Lasix] 20 mg PO DAILY 12/08/17 Lisinopril 5 mg PO DAILY 12/08/17 Hospitalist Screening - Colonoscopy Questionnaire Colonoscopy Questionnaire: Colonoscopy Questionnaire
[2017-12-08] MEDS ORDERED: ACETAMINOPHEN 325 MG TABLET (FP) PO PRN (15:53)
[2017-12-08 15:56] LABS: URINE APPEARANCE SLCLOUDY; URINE BILIRUBIN NEGATIVE (<2.0 mg/dL); URINE COLOR STRAW; URINE GLUCOSE (UA) NEGATIVE (NEGATIVE); URINE KETONE NEGATIVE (NEGATIVE); URINE LEUK ESTERASE NEGATIVE (NEGATIVE); URINE NITRITE NEGATIVE (NEGATIVE); URINE PROTEIN NEGATIVE (NEGATIVE); URINE UROBILINOGEN NEGATIVE mg/dL (0.2-1.0)
[2017-12-08] MEDS: ALBUTEROL SO4 2.5/IPRATROPIUM 0.5 INH SOL 3 ML VIAL.NEB. NEB SCH ×2 (16:04→20:24)
[2017-12-08] MEDS: INSULIN SLIDING SCALE (NOVOLOG) 1 VIAL SQ SCH ×2 (17:01→22:25)
[2017-12-08] MEDS ORDERED: ALBUTEROL SO4 2.5/IPRATROPIUM 0.5 INH SOL 3 ML VIAL.NEB. NEB ONE (20:30)
[2017-12-08] MEDS ORDERED: HEPARIN NA (PORCINE) 5,000 UNITS/ML 1ML VIAL ONE (21:41)
[2017-12-08] MEDS ORDERED: clonazePAM 0.5 MG TABLET ONE (21:41)
[2017-12-08] MEDS: clonazePAM 0.5 MG TABLET PO SCH (21:48)
[2017-12-08] MEDS: ATORVASTATIN CA 20 MG TABLET (FP) PO SCH (21:48)
[2017-12-08] MEDS: HEPARIN NA (PORCINE) 5,000 UNITS/ML 1ML VIAL SQ SCH (21:48)
[2017-12-08] MEDS: GABAPENTIN 300 MG CAPSULE (FP) PO SCH (21:49)
--- NOTE | 2017-12-08 21:50 | CON.NEURO ---
Consult - History of Present Illness History of Present Illness: 52 year old female with a significant PMH of seizures, DM, COPD, anxiety, HTN, CHF, CVA in 2015, asthma who presents to the hospital after witnessed seizure this morning. The patient doesn't remember what happened. As per medical documentation, she was standing in the living room, when she grabbed onto the daughter and the daughter guided the patient to the floor. She states the patient did not hit her head but did hit her right elbow when going onto the ground. She denies urination, tongue biting, defecation. She denies changing medications for seizures recently. Last time she has seizure was several months ago, but she doesn't remember exactly.When I saw the patient she was complaining of dizziness and mild shortness of breath, dry cough which she states may be related to her recent COPD diagnosis. Recently she states that she feels more swollen and gained weight. on topamax 150BID . last seizure few months back; now back at baseline. - Past Medical History [employer]: Yes: CVA, Seizure, TIA Cardio/Vascular: Yes: CAD, HTN, Hyperlipdemia Pulmonary: Yes: Sleep Apnea ...LMP: 10/27/17 Infectious Disease: Yes: Other (Hep C) Psych: Yes: Anxiety, Bipolar Endocrine: Yes: Diabetes Mellitus - Past Surgical History Past Surgical History: Yes: - Alcohol/Substance Use Hx Alcohol Use: No - Smoking History Smoking history: Former smoker Have you smoked in the past 12 months: No If you are a former smoker, when did you quit?: 2014 - Social History Usual Living Arrangement: Alone ADL: Independent History of Recent Travel: No Home Medications - Allergies Allergies/Adverse Reactions: Allergies Allergy/AdvReac Type Severity Reaction Status Date / Time Iodinated Contrast- Oral and Allergy Intermediate Itching Verified 11/18/17 12: 11 IV Dye [Iodinated Contrast Media - IV Dye] azithromycin AdvReac Intermediate Itching Verified 11/18/17 12:11 tramadol AdvReac Verified 11/18/17 12:11 - Home Medications Home Medications: Ambulatory Orders Fluoxetine HCl [Prozac -] 40 mg PO DAILY 09/15/14 Gabapentin [Neurontin -] 600 mg PO TID 09/15/14 [place]-3 Fatty Acids [[place]-3] 1,000 mg PO BID 09/15/14 Albuterol Sulfate Inhaler - [Ventolin HFA Inhaler -] 1 - 2 inh PO QID 03/15/16 Liraglutide [Victoza -] 1.8 mg SQ DAILY@1200 03/15/17 clonazePAM [Klonopin -] 0.5 mg PO BID PRN 05/12/17 Meclizine HCl [Antivert -] 12.5 mg PO Q6H PRN #20 tablet 06/27/17 Aspirin 81 mg PO DAILY 08/15/17 Ergocalciferol (Vitamin D2) [Vitamin D2] 50,000 units PO WEEKLY 08/15/17 Levothyroxine [Synthroid -] 50 mcg PO DAILY 08/15/17 Atorvastatin Ca [Lipitor] 20 mg PO HS 09/09/17 Tiotropium [place] [Spiriva] 1 inh PO DAILY 09/09/17 Loratadine [Claritin] 10 mg PO DAILY 09/11/17 Albuterol 2.5/Ipratropium 0.5 [Duoneb -] 1 amp NEB RQID #120 amp 10/31/17 Topiramate [Topamax -] 125 mg PO BID #60 tablet 10/31/17 Diclofenac Sodium [Voltaren] 2 gm TP TID PRN 11/30/17 Hydrocodone/Acetaminophen [Hydrocodone-Acetamin 10-325 mg] 1 each PO BID PRN # 60 tablet MDD 2 11/30/17 Insulin (Novolog) [Novolog Flexpen] 0 units SQ BIDAC 11/30/17 Insulin Glargine,Hum.rec.anlog [Lantus Solostar] 50 unit SQ DAILY 11/30/17 Furosemide [Lasix] 20 mg PO DAILY 12/08/17 Lisinopril 5 mg PO DAILY 12/08/17 Family Disease History - Family Disease History Family Disease History: Diabetes: Mother (,), Brother (one living - etoh ), Sister (two living - ), Heart Disease: Father (living, no contact,etoh), Sister, Respiratory: Father, Other: Father, Mother, Brother, Sister, Daughter ( one with etoh) Physical Exam-Neuro Vital Signs: Vital Signs Temperature 98.6 F 12/08/17 19:17 Pulse Rate 74 12/08/17 19:17 Respiratory Rate 16 12/08/17 19:17 Blood Pressure 141/61 05/11/18 19:17 O2 Sat by Pulse Oximetry (%) 96 12/08/17 19:17 Labs: CBC, BMP 12/08/17 12:05 12/08/17 12:05 - Neuro Exam Level Of Consciousness: Yes: Alert, Oriented to Person (EOMI, VFF, no facial, motor 5/5, no sesnory level, reflex symmetric ) Problem List - Problems (1) Epilepsy Code(s): G40.909 - EPILEPSY, UNSP, NOT INTRACTABLE, WITHOUT STATUS EPILEPTICUS (2) Shortness of breath Code(s): R06.02 - SHORTNESS OF BREATH Assessment/Plan 52 year old female with a significant PMH of seizures, DM, COPD, anxiety, HTN, CHF, CVA in 2015, asthma who presents to the hospital after witnessed seizure this morning. back to basline , compliant with RX will increase topamax 200BID and monitor overnight ASTHmA --FU if no new seizure events can be cleared from neuro stand point and FU with our office DR Wagner [phone]
[2017-12-08] MEDS: OMEGA-3 ACID ETHYL ESTERS (FATTY-ACIDS) 1 GM CAPSULE (FP) PO SCH (21:58)
[2017-12-08] MEDS: TOPIRAMATE 200 MG TABLET (FP) PO SCH (21:59)
[2017-12-08] MEDS ORDERED: TOPIRAMATE 100 MG TABLET PO SCH (22:00)
[2017-12-08] MEDS ORDERED: INSULIN (NOVOLOG) ASPART 100 UNITS/ML 10ML VIAL ONE ×2 (22:27→22:30)
[2017-12-09 04:22] VITALS: BMI 41.1
[2017-12-09] MEDS: INSULIN SLIDING SCALE (NOVOLOG) 1 VIAL SQ SCH ×4 (06:23→21:06)
[2017-12-09] MEDS: INSULIN (LEVEMIR) 100 UNITS/ML UNITS SQ SCH (06:24)
[2017-12-09] MEDS: GABAPENTIN 300 MG CAPSULE (FP) PO SCH ×3 (06:24→21:05)
[2017-12-09] MEDS: LEVOTHYROXINE NA 25 MCG TABLET (FP) PO SCH (06:24)
[2017-12-09 07:29] LABS: BASO % 0.5 % (0-2.0); EOS % 2.5 % (0-4.5); HEMATOCRIT 27.5 % (32.4-45.2); LYMPH % 23.3 % (8-40); MCH 25.9 pg (25.7-33.7); MCHC 32.9 g/dl (32.0-36.0); MEAN CELL VOLUME 78.9 fl (80-96); MEAN PLT VOLUME 8.9 fl (7.5-11.1); NEUT % 66.7 % (42.8-82.8); PLATELET COUNT 241 K/MM3 (134-434); RBC 3.48 M/mm3 (3.60-5.2); RDW 15.5 % (11.6-15.6); WHITE BLOOD COUNT 7.9 K/mm3 (4.0-10.0)
[2017-12-09] MEDS: ALBUTEROL SO4 2.5/IPRATROPIUM 0.5 INH SOL 3 ML VIAL.NEB. NEB SCH ×4 (08:10→21:01)
[2017-12-09 08:20] LABS: ALBUMIN 3.2 g/dl (3.4-5.0); ANION GAP 8 (8-16); BLOOD UREA NITROGEN 11 mg/dL (7-18); CALCIUM 8.4 mg/dL (8.5-10.1); CHLORIDE 105 mmol/L (98-107); CO2 26 mmol/L (21-32); GLUCOSE,RANDOM 237 mg/dL (74-106); MAGNESIUM 1.8 mg/dL (1.8-2.4); POTASSIUM 3.8 mmol/L (3.5-5.1); SGOT/AST 11 U/L (15-37); SODIUM 139 mmol/L (136-145)
--- NOTE | 2017-12-09 08:22 | EKG ---
Test Reason : Blood Pressure : / mmHG Vent. Rate : 094 BPM Atrial Rate : 094 BPM P-R Int : 156 ms QRS Dur : 088 ms QT Int : 370 ms P-R-T Axes : 043 -29 041 degrees QTc Int : 462 ms NORMAL SINUS RHYTHM MINIMAL VOLTAGE CRITERIA FOR LVH, MAY BE NORMAL VARIANT BORDERLINE ECG WHEN COMPARED WITH ECG OF 09-NOV-2017 10:54, NO SIGNIFICANT CHANGE WAS FOUND Confirmed by ARNALDO MENDOZA, ANA LUISA ([id number]) on 12/09/2017 8:22:01 AM Referred By: Confirmed By:ANA LUISA MCINTOSH MD
[2017-12-09 08:23] LABS: ALK PHOS 66 U/L (45-117); BILIRUBIN,TOTAL 0.3 mg/dL (0.2-1.0); CREATININE 0.9 mg/dL (0.55-1.02); PHOSPHOROUS 3.4 mg/dL (2.5-4.9); SGPT/ALT 15 U/L (12-78); TOT PROT 6.5 g/dl (6.4-8.2)
[2017-12-09] MEDS: LORATADINE 10 MG TABLET PO SCH (09:08)
[2017-12-09] MEDS: TOPIRAMATE 200 MG TABLET (FP) PO SCH ×2 (09:08→21:07)
[2017-12-09] MEDS: clonazePAM 0.5 MG TABLET PO SCH ×2 (09:08→21:06)
[2017-12-09] MEDS: LISINOPRIL 5 MG TABLET (FP) PO SCH (09:08)
[2017-12-09] MEDS: FLUoxetine HCL 20 MG CAPSULE (FP) PO SCH (09:08)
[2017-12-09] MEDS: OMEGA-3 ACID ETHYL ESTERS (FATTY-ACIDS) 1 GM CAPSULE (FP) PO SCH ×2 (09:08→21:06)
[2017-12-09] MEDS: HEPARIN NA (PORCINE) 5,000 UNITS/ML 1ML VIAL SQ SCH ×2 (09:08→21:10)
[2017-12-09] MEDS ORDERED: PANTOPRAZOLE SODIUM 40 MG VIAL IVPUSH ONE (11:00)
[2017-12-09] MEDS ORDERED: MAG HYDROX/AL HYDROX/SIMETH 30 ML UNIT-DOSE CUP PO ONE (11:01)
--- NOTE | 2017-12-09 11:12 | RAPID ---
Physical Examination Vital Signs: Vital Signs Temperature 98.1 F 12/09/17 08:00 Pulse Rate 94 H 12/09/17 08:00 Respiratory Rate 20 12/09/17 08:00 Blood Pressure 113/59 12/09/17 08:00 O2 Sat by Pulse Oximetry (%) 96 12/08/17 19:17 Labs: CBC, BMP 12/09/17 07:14 12/09/17 07:14 Rapid Response - Rapid Response Plan: Rapid response called at 10:56am. initial vitals 135/72, HR 107, sat 99% Pt found by nurse leaning against a wall complaining of burning chest pain and weakness. Chest pain was epigastric and radiated up her chest. Note that pt came to hospital complaining of similar and initial cardiac workup revealed negative trop and EKG. Denies dizziness, palpitations, diaphoresis, nausea, vomiting. PE: Pt had no diaphoresis. Cardiac: normal s1, s2, no murmurs Lung: Diminished breath sounds 2/2 obesity. No rales/ronchi Abd: Obese, soft nontender Extremities: LUE weakness from prior stroke. stable from prior. Plan: -O2 -EKG: -Trop -IV Protonix -Maalox Home med: Omeprazole 20mg daily
[2017-12-09] MEDS ORDERED: INSULIN (NOVOLOG) ASPART 100 UNITS/ML 10ML VIAL ONE (11:14)
[2017-12-09] MEDS ORDERED: PT OWN MED DRAWER 7, Y5N ONE (12:56)
--- NOTE | 2017-12-09 15:36 | EKG ---
Test Reason : Blood Pressure : / mmHG Vent. Rate : 095 BPM Atrial Rate : 095 BPM P-R Int : 148 ms QRS Dur : 086 ms QT Int : 386 ms P-R-T Axes : 054 -29 034 degrees QTc Int : 485 ms NORMAL SINUS RHYTHM PROLONGED QT ABNORMAL ECG WHEN COMPARED WITH ECG OF 08-DEC-2017 11:07, NO SIGNIFICANT CHANGE WAS FOUND Confirmed by ARNALDO MENDOZA, ANA LUISA ([id number]) on 12/09/2017 3:35:54 PM Referred By: Angela ERAZO Confirmed By:ANA LUISA MCINTOSH MD
--- NOTE | 2017-12-09 16:13 | PN ---
Progress Note (short form) - Note Progress Note: Patient is feeling better, no chest pain at this time, no seizure activity. Vital Signs Temperature 98.1 F 12/09/17 14:16 Pulse Rate 112 H 12/09/17 11:05 Respiratory Rate 20 12/09/17 11:05 Blood Pressure 132/75 12/09/17 11:05 O2 Sat by Pulse Oximetry (%) 96 12/08/17 19:17 GENERAL: Awake, alert, and fully oriented, in no acute distress, lying in bed. HEAD: Normal with no signs of trauma. EYES: Pupils equal, round and reactive to light, extraocular movements intact, sclera anicteric, conjunctiva clear. EARS, NOSE, THROAT: Ears normal, oropharynx clear without exudates. Moist mucous membranes. NECK: Normal range of motion, supple without lymphadenopathy, JVD, or masses. LUNGS: decreased Breath sounds BL, diminished to auscultation bilaterally. HEART: Regular rate and rhythm, normal S1 and S2 without murmur, rub or gallop. ABDOMEN: Obese, soft, nontender, not distended, normoactive bowel sounds, no guarding, no rebound, no masses. MUSCULOSKELETAL: Normal range of motion at all joints. No bony deformities or tenderness. No CVA tenderness. EXTREMITIES: 2+ pulses, warm, No peripheral edema. NEUROLOGICAL: Normal speech, no facial asymmetry, LUE 4/5, all other 5/5, sensation to light touch intact, gait not observed. PSYCHIATRIC: Cooperative. Good eye contact. Appropriate mood and affect. SKIN: Warm, dry, normal turgor, no rashes or lesions. CBCD WBC 7.9 K/mm3 (4.0-10.0) 12/09/17 07:14 RBC 3.48 M/mm3 (3.60-5.2) L 12/09/17 07:14 Hgb 9.0 GM/dL (10.7-15.3) L 12/09/17 07:14 Hct 27.5 % (32.4-45.2) L 12/09/17 07:14 MCV 78.9 fl (80-96) L 12/09/17 07:14 MCHC 32.9 g/dl (32.0-36.0) 12/09/17 07:14 RDW 15.5 % (11.6-15.6) 12/09/17 07:14 Plt Count 241 K/MM3 (134-434) 12/09/17 07:14 MPV 8.9 fl (7.5-11.1) 12/09/17 07:14 CMP Sodium 139 mmol/L (136-145) 12/09/17 07:14 Potassium 3.8 mmol/L (3.5-5.1) 12/09/17 07:14 Chloride 105 mmol/L (98-107) 12/09/17 07:14 Carbon Dioxide 26 mmol/L (21-32) 12/09/17 07:14 Anion Gap 8 (8-16) 12/09/17 07:14 BUN 11 mg/dL (7-18) 12/09/17 07:14 Creatinine 0.9 mg/dL (0.55-1.02) 12/09/17 07:14 Creat Clearance w eGFR > 60 (>60) 12/09/17 07:14 Random Glucose 237 mg/dL (74-106) H 12/09/17 07:14 Calcium 8.4 mg/dL (8.5-10.1) L 12/09/17 07:14 Total Bilirubin 0.3 mg/dL (0.2-1.0) D 12/09/17 07:14 AST 11 U/L (15-37) L 12/09/17 07:14 ALT 15 U/L (12-78) 12/09/17 07:14 Alkaline Phosphatase 66 U/L (45-117) 12/09/17 07:14 Total Protein 6.5 g/dl (6.4-8.2) 12/09/17 07:14 Albumin 3.2 g/dl (3.4-5.0) L 12/09/17 07:14 CARDIAC ENZYMES Creatine Kinase 48 IU/L (26-192) 12/09/17 11:14 Troponin I < 0.02 ng/ml (0.00-0.05) 12/09/17 11:14 Current Medications Generic Name Dose Route Start Last Admin Trade Name Freq PRN Reason Stop Dose Admin Acetaminophen 325 mg 12/08/17 15:53 Tylenol - PO BID PRN PAIN LEVEL 6-10 Albuterol Sulfate 1 puff 12/08/17 18:00 Ventolin Hfa Inhaler - IH QID PRN SHORTNESS OF BREATH Albuterol Sulfate 2 puff 12/08/17 15:26 Ventolin Hfa Inhaler - IH QID PRN SHORTNESS OF BREATH Albuterol/Ipratropium 1 amp 12/08/17 16:00 12/09/17 12:15 Duoneb - NEB 1 amp RQID SHAUN Administration Atorvastatin Calcium 20 mg 12/08/17 22:00 12/08/17 21:48 Lipitor - PO 20 mg HS SHAUN Administration Clonazepam 0.5 mg 12/08/17 22:00 12/09/17 09:08 Klonopin - PO 0.5 mg BID SHAUN Administration Fluoxetine HCl 40 mg 12/09/17 10:00 12/09/17 09:08 Prozac - PO 40 mg DAILY SHAUN Administration Gabapentin 600 mg 12/08/17 22:00 12/09/17 13:44 Neurontin - PO 600 mg TID SHAUN Administration Heparin Sodium (Porcine) 5,000 unit 12/08/17 22:00 12/09/17 09:08 Heparin - SQ 5,000 unit BID SHAUN Administration Insulin Aspart 1 vial 12/08/17 16:30 12/09/17 11:39 Novolog Vial Sliding Scale - SQ 6 unit ACHS [facility] Administration Protocol Insulin Detemir 50 units 12/09/17 07:00 12/09/17 06:24 Levemir Vial SQ 50 units DAILY@0700 [facility] Administration Levothyroxine Sodium 25 mcg 12/09/17 07:00 12/09/17 06:24 Synthroid - PO 25 mcg DAILY@0700 [facility] Administration Liraglutide 1.8 mg 12/09/17 12:00 Victoza - SQ DAILY@1200 [facility] Lisinopril 5 mg 12/09/17 10:00 12/09/17 09:08 Prinivil PO 5 mg DAILY SHAUN Administration Loratadine 10 mg 12/09/17 10:00 12/09/17 09:08 Claritin - PO 10 mg DAILY SHAUN Administration Ntokc-3-Zevo Ethyl Esters 1 gm 12/08/17 22:00 12/09/17 09:08 Lovaza - PO 1 gm BID SHAUN Administration Oxycodone HCl 5 mg 12/08/17 15:52 Roxicodone - PO BID PRN PAIN LEVEL 6-10 Topiramate 200 mg 12/08/17 22:00 12/09/17 09:08 Topamax - PO 12/15/17 10:01 200 mg BID SHAUN Administration Home Medications Medication Instructions Recorded Fluoxetine HCl [Prozac -] 40 mg PO DAILY 09/15/14 Gabapentin [Neurontin -] 600 mg PO TID 09/15/14 [place]-3 Fatty Acids [[place]-3] 1,000 mg PO BID 09/15/14 Albuterol Sulfate Inhaler - 1 - 2 inh PO QID 03/15/16 [Ventolin HFA Inhaler -] Liraglutide [Victoza -] 1.8 mg SQ DAILY@1200 03/15/17 clonazePAM [Klonopin -] 0.5 mg PO BID PRN 05/12/17 Meclizine HCl [Antivert -] 12.5 mg PO Q6H PRN #20 tablet 06/27/17 Aspirin 81 mg PO DAILY 08/15/17 Ergocalciferol (Vitamin D2) 50,000 units PO WEEKLY 08/15/17 [Vitamin D2] Levothyroxine [Synthroid -] 50 mcg PO DAILY 08/15/17 Atorvastatin Ca [Lipitor] 20 mg PO HS 09/09/17 Tiotropium [place] [Spiriva] 1 inh PO DAILY 09/09/17 Loratadine [Claritin] 10 mg PO DAILY 09/11/17 Albuterol 2.5/Ipratropium 0.5 1 amp NEB RQID #120 amp 10/31/17 [Duoneb -] Topiramate [Topamax -] 125 mg PO BID #60 tablet 10/31/17 Diclofenac Sodium [Voltaren] 2 gm TP TID PRN 11/30/17 Hydrocodone/Acetaminophen 1 each PO BID PRN #60 tablet MDD 2 11/30/17 [Hydrocodone-Acetamin 10-325 mg] Insulin (Novolog) [Novolog Flexpen] 0 units SQ BIDAC 11/30/17 Insulin Glargine,Hum.rec.anlog 50 unit SQ DAILY 11/30/17 [Lantus Solostar] Furosemide [Lasix] 20 mg PO DAILY 12/08/17 Lisinopril 5 mg PO DAILY 12/08/17 A/P: Patient is a 52 year old female with a significant PMH of seizures, DM, COPD, anxiety, HTN, CHF, CVA in 2014, asthma who presents to the hospital after witnessed seizure this morning. # Seizure: on Topamax, increased from 150mg to 200mg po bid, seen the patient and appreciated. #Asthma continue home meds. #Anemia: Hgb is 9.3, last one was 11.9 month ago ; follow iron studies, had vaginal bleeding last month and is being followed up with OBGYN #COPD: newly diagnosed, stable, continue Albuterol Neb, Duoneb #Diastolic CHF: continue lisinopril 5 mg, and aspririn enteric coated #HLD cont Lipitor 20 mg #Anxiety cont Klonopin and prozac, #DM II , on Levemir 50 units AM #Hypothroridism Synthroid 25 mcg DVt Px; Heparin Visit type - Emergency Visit Emergency Visit: Yes ED Registration Date: 12/08/17 Care time: The patient presented to the Emergency Department on the above date and was hospitalized for further evaluation of their emergent condition. - New Patient This patient is new to me today: No - Critical Care Critical Care patient: No - Discharge Referral Referred to [facility] Med [facility] No
[2017-12-09] MEDS: LIRAGLUTIDE 0.6 MG/0.1 ML PEN.INJCTR SQ SCH (16:30)
[2017-12-09] MEDS: oxyCODONE HCL 5 MG TABLET PO PRN (21:05)
[2017-12-09] MEDS: ATORVASTATIN CA 20 MG TABLET (FP) PO SCH (21:06)
--- NOTE | 2017-12-09 21:18 | PN ---
Progress Note (short form) - Note Progress Note: No further seizures. On Topamax 200 bid. Would continue this and discharge to f/u in our office. No neurologic contraindication to discharge at this point. Thanks.
[2017-12-10] MEDS: GABAPENTIN 300 MG CAPSULE (FP) PO SCH ×2 (06:02→14:11)
[2017-12-10] MEDS: LEVOTHYROXINE NA 25 MCG TABLET (FP) PO SCH (06:02)
[2017-12-10] MEDS: INSULIN (LEVEMIR) 100 UNITS/ML UNITS SQ SCH (06:03)
[2017-12-10] MEDS: INSULIN SLIDING SCALE (NOVOLOG) 1 VIAL SQ SCH ×2 (06:03→10:19)
[2017-12-10 06:56] VITALS: TEMP 98.5
[2017-12-10] MEDS: ALBUTEROL SO4 2.5/IPRATROPIUM 0.5 INH SOL 3 ML VIAL.NEB. NEB SCH ×2 (07:20→11:41)
[2017-12-10 08:07] LABS: SERUM IRON SATURATION 10 % (15-55); TOTAL IRON BINDING CAPACITY 444 ug/dL (250-450); TRANSFERRIN 365 mg/dL (200-370); UIBC 400 ug/dL (131-425)
[2017-12-10] MEDS ORDERED: INSULIN (NOVOLOG) ASPART 100 UNITS/ML 10ML VIAL ONE (10:03)
[2017-12-10] MEDS ORDERED: PT OWN MED DRAWER 7, Y5N ONE (10:04)
[2017-12-10] MEDS: LISINOPRIL 5 MG TABLET (FP) PO SCH (10:13)
[2017-12-10] MEDS: clonazePAM 0.5 MG TABLET PO SCH (10:13)
[2017-12-10] MEDS: LORATADINE 10 MG TABLET PO SCH (10:13)
[2017-12-10] MEDS: OMEGA-3 ACID ETHYL ESTERS (FATTY-ACIDS) 1 GM CAPSULE (FP) PO SCH (10:13)
[2017-12-10] MEDS: TOPIRAMATE 200 MG TABLET (FP) PO SCH (10:13)
[2017-12-10] MEDS: FLUoxetine HCL 20 MG CAPSULE (FP) PO SCH (10:14)
[2017-12-10] MEDS: HEPARIN NA (PORCINE) 5,000 UNITS/ML 1ML VIAL SQ SCH (10:14)
--- NOTE | 2017-12-10 10:17 | DS ---
Physical Exam: Patient looks comfortable, case checker arranging her transport and the aid. Patient's medication Topamax increased to 200mg from 150mg as per neurology. Also added iron supplements since she has Iron deficiency anemia. 325mg po bid with colace 100mg 2x per day , take with iron supplement. Vital Signs Temperature 98.5 F 12/10/17 06:55 Pulse Rate 90 12/10/17 06:55 Respiratory Rate 20 12/10/17 06:55 Blood Pressure 128/64 12/10/17 06:55 O2 Sat by Pulse Oximetry (%) 96 12/08/17 19:17 CBCD WBC 7.9 K/mm3 (4.0-10.0) 12/09/17 07:14 RBC 3.48 M/mm3 (3.60-5.2) L 12/09/17 07:14 Hgb 9.0 GM/dL (10.7-15.3) L 12/09/17 07:14 Hct 27.5 % (32.4-45.2) L 12/09/17 07:14 MCV 78.9 fl (80-96) L 12/09/17 07:14 MCHC 32.9 g/dl (32.0-36.0) 12/09/17 07:14 RDW 15.5 % (11.6-15.6) 12/09/17 07:14 Plt Count 241 K/MM3 (134-434) 12/09/17 07:14 MPV 8.9 fl (7.5-11.1) 12/09/17 07:14 CMP Sodium 139 mmol/L (136-145) 12/09/17 07:14 Potassium 3.8 mmol/L (3.5-5.1) 12/09/17 07:14 Chloride 105 mmol/L (98-107) 12/09/17 07:14 Carbon Dioxide 26 mmol/L (21-32) 12/09/17 07:14 Anion Gap 8 (8-16) 12/09/17 07:14 BUN 11 mg/dL (7-18) 12/09/17 07:14 Creatinine 0.9 mg/dL (0.55-1.02) 12/09/17 07:14 Creat Clearance w eGFR > 60 (>60) 12/09/17 07:14 Random Glucose 237 mg/dL (74-106) H 12/09/17 07:14 Calcium 8.4 mg/dL (8.5-10.1) L 12/09/17 07:14 Total Bilirubin 0.3 mg/dL (0.2-1.0) D 12/09/17 07:14 AST 11 U/L (15-37) L 12/09/17 07:14 ALT 15 U/L (12-78) 12/09/17 07:14 Alkaline Phosphatase 66 U/L (45-117) 12/09/17 07:14 Total Protein 6.5 g/dl (6.4-8.2) 12/09/17 07:14 Albumin 3.2 g/dl (3.4-5.0) L 12/09/17 07:14 CARDIAC ENZYMES Creatine Kinase 48 IU/L (26-192) 12/09/17 11:14 Troponin I < 0.02 ng/ml (0.00-0.05) 12/09/17 11:14 Current Medications Generic Name Dose Route Start Last Admin Trade Name Freq PRN Reason Stop Dose Admin Acetaminophen 325 mg 12/08/17 15:53 Tylenol - PO BID PRN PAIN LEVEL 6-10 Albuterol Sulfate 1 puff 12/08/17 18:00 Ventolin Hfa Inhaler - IH QID PRN SHORTNESS OF BREATH Albuterol Sulfate 2 puff 12/08/17 15:26 Ventolin Hfa Inhaler - IH QID PRN SHORTNESS OF BREATH Albuterol/Ipratropium 1 amp 12/08/17 16:00 12/10/17 07:20 Duoneb - NEB 1 amp RQID SHAUN Administration Atorvastatin Calcium 20 mg 12/08/17 22:00 12/09/17 21:06 Lipitor - PO 20 mg HS SHAUN Administration Clonazepam 0.5 mg 12/08/17 22:00 12/10/17 10:13 Klonopin - PO 0.5 mg BID SHAUN Administration Fluoxetine HCl 40 mg 12/09/17 10:00 12/10/17 10:14 Prozac - PO 40 mg DAILY SHAUN Administration Gabapentin 600 mg 12/08/17 22:00 12/10/17 06:02 Neurontin - PO 600 mg TID SHAUN Administration Heparin Sodium (Porcine) 5,000 unit 12/08/17 22:00 12/10/17 10:14 Heparin - SQ 5,000 unit BID SHAUN Administration Insulin Aspart 1 vial 12/08/17 16:30 12/10/17 10:19 Novolog Vial Sliding Scale - SQ 6 unit ACHS SHAUN Administration Protocol Insulin Detemir 50 units 12/09/17 07:00 12/10/17 06:03 Levemir Vial SQ 50 units DAILY@0700 SHAUN Administration Levothyroxine Sodium 25 mcg 12/09/17 07:00 12/10/17 06:02 Synthroid - PO 25 mcg DAILY@0700 SHAUN Administration Liraglutide 1.8 mg 12/09/17 12:00 12/09/17 16:30 Victoza - SQ 1.8 mg DAILY@1200 SHAUN Administration Lisinopril 5 mg 12/09/17 10:00 12/10/17 10:13 Prinivil PO 5 mg DAILY SHAUN Administration Loratadine 10 mg 12/09/17 10:00 12/10/17 10:13 Claritin - PO 10 mg DAILY SHAUN Administration [id number]-[id number] Ethyl Esters 1 gm 12/08/17 22:00 12/10/17 10:13 Lovaza - PO 1 gm BID SHAUN Administration Oxycodone HCl 5 mg 12/08/17 15:52 12/09/17 21:05 Roxicodone - PO 5 mg BID PRN Administration PAIN LEVEL 6-10 Topiramate 200 mg 12/08/17 22:00 12/10/17 10:13 Topamax - PO 12/15/17 10:01 200 mg BID SHAUN Administration Home Medications Medication Instructions Recorded Fluoxetine HCl [Prozac -] 40 mg PO DAILY 09/15/14 Gabapentin [Neurontin -] 600 mg PO TID 09/15/14 [place]-3 Fatty Acids [[place]-3] 1,000 mg PO BID 09/15/14 Albuterol Sulfate Inhaler - 1 - 2 inh PO QID 03/15/16 [Ventolin HFA Inhaler -] Liraglutide [Victoza -] 1.8 mg SQ DAILY@1200 03/15/17 clonazePAM [Klonopin -] 0.5 mg PO BID PRN 05/12/17 Meclizine HCl [Antivert -] 12.5 mg PO Q6H PRN #20 tablet 06/27/17 Aspirin 81 mg PO DAILY 08/15/17 Levothyroxine [Synthroid -] 50 mcg PO DAILY 08/15/17 Atorvastatin Ca [Lipitor] 20 mg PO HS 09/09/17 Tiotropium [place] [Spiriva] 1 inh PO DAILY 09/09/17 Loratadine [Claritin] 10 mg PO DAILY 09/11/17 Albuterol 2.5/Ipratropium 0.5 1 amp NEB RQID #120 amp 10/31/17 [Duoneb -] Insulin (Novolog) [Novolog Flexpen 0 units SQ BIDAC 11/30/17 -] Insulin Glargine,Hum.rec.anlog 50 unit SQ DAILY 11/30/17 [Lantus Solostar] Furosemide [Lasix] 20 mg PO DAILY 12/08/17 Lisinopril 5 mg PO DAILY 12/08/17 Cholecalciferol (Vitamin D3) 50,000 unit PO WEEKLY #10 capsule 12/10/17 [D3-50] Docusate Sodium [Colace] 100 mg PO BID #60 capsule 12/10/17 Ferrous Sulfate [Feosol] 325 mg PO BID #60 tablet 12/10/17 Guaifenesin [Robitussin -] 10 ml PO Q6H PRN #120 cup 12/10/17 Topiramate [Topamax -] 200 mg PO BID #60 tablet 12/10/17 <Shabnam Rodriguez - Last Filed: 12/10/17 10:50> Physical Exam: SUBJECTIVE: No events reported overnight. Pt currently without complaints and eager to go home. OBJECTIVE: Vital Signs Period Temp Pulse Resp BP Sys/Giron Pulse Ox Last 24 Hr 97.8 F-98.5 F 80-112 20-20 128-132/62-75 PHYSICAL EXAM GENERAL: NAD, awake, alert, and fully oriented HEENT: EOMI, BESSY, sclera anicteric, no thyromegaly, moist mucosa LUNGS: Breath sounds equal, clear to auscultation bilaterally, no wheezes, no crackles, no accessory muscle use. HEART: RRR, S1, S2 without murmur ABDOMEN: Soft, obese, NT/ND, normoactive bowel sounds, no guarding, no hepatomegaly, no masses. EXTREMITIES: 2+ DP pulses, warm, no edema. Chronic residual LUE weakness 4/5 compared with RUE (prior stroke; stable per pt) PSYCH: Normal mood, normal affect. SKIN: Warm, dry, no rashes or lesions noted. LABS Laboratory Results - last 24 hr 12/09/17 12/09/17 12/09/17 07:14 11:14 11:37 POC Glucometer 275 Iron 44 TIBC 444 Iron Saturation 10 L Transferrin 365 Creatine Kinase 48 Troponin I < 0.02 12/09/17 12/09/17 12/10/17 16:33 20:37 05:40 POC Glucometer 262 335 193 Iron TIBC Iron Saturation Transferrin Creatine Kinase Troponin I Laboratory Tests 12/09/17 12/09/17 07:14 07:14 Iron Saturation 10 L Transferrin 365 Ferritin 6.377 L HOSPITAL COURSE: Date of Admission:12/08/17 Date of Discharge: 12/10/17 Pt was admitted on 12/08/17 after presenting to the hospital with a witnessed seizure the morning of admission without any recollection of the event. Pt was admitted for observation and underwent neurology consultation. Pt's Topamax was increased from 150mg PO BID to 200mg PO BID and no other seizures occurred during our hospital course. Unfortunately, a rapid response was called on the patient 12/09/17 due to an experience of burning chest pain with radiation to her epigastric area. Pt had troponins and EKGs which revealed no active cardiac pathology and patient had her GERD medication continued (Omeprazole 20mg qDaily) . In addition, pt was found to have iron deficiency anemia in her labwork with a low iron saturation of 10 and transferrin of 365 with Ferritin of 6.3 Pt is being discharged today in stable condition with instructions to continue her Topamax 200mg PO BID and to initiate ferrous sulfate supplementation. She was given Colace 100mg BID to combat the constipating nature of iron supplement. Minutes to complete discharge: 35 <Herman Cai - Last Filed: 12/18/17 22:06> Discharge Summary Current Active Problems Anemia (Acute) Anxiety (Chronic) - Home Medications Comprehensive Discharge Medication List: Ambulatory Orders Fluoxetine HCl [Prozac -] 40 mg PO DAILY 09/15/14 Gabapentin [Neurontin -] 600 mg PO TID 09/15/14 [place]-3 Fatty Acids [[place]-3] 1,000 mg PO BID 09/15/14 Albuterol Sulfate Inhaler - [Ventolin HFA Inhaler -] 1 - 2 inh PO QID 03/15/16 Liraglutide [Victoza -] 1.8 mg SQ DAILY@1200 03/15/17 clonazePAM [Klonopin -] 0.5 mg PO BID PRN 05/12/17 Meclizine HCl [Antivert -] 12.5 mg PO Q6H PRN #20 tablet 06/27/17 Aspirin 81 mg PO DAILY 08/15/17 Ergocalciferol (Vitamin D2) [Vitamin D2] 50,000 units PO WEEKLY 08/15/17 Levothyroxine [Synthroid -] 50 mcg PO DAILY 08/15/17 Atorvastatin Ca [Lipitor] 20 mg PO HS 09/09/17 Tiotropium [place] [Spiriva] 1 inh PO DAILY 09/09/17 Loratadine [Claritin] 10 mg PO DAILY 09/11/17 Albuterol 2.5/Ipratropium 0.5 [Duoneb -] 1 amp NEB RQID #120 amp 10/31/17 Diclofenac Sodium [Voltaren] 2 gm TP TID PRN 11/30/17 Hydrocodone/Acetaminophen [Hydrocodone-Acetamin 10-325 mg] 1 each PO BID PRN # 60 tablet MDD 2 11/30/17 Insulin (Novolog) [Novolog Flexpen -] 0 units SQ BIDAC 11/30/17 Insulin Glargine,Hum.rec.anlog [Lantus Solostar] 50 unit SQ DAILY 11/30/17 Furosemide [Lasix] 20 mg PO DAILY 12/08/17 Lisinopril 5 mg PO DAILY 12/08/17 Dextromethorphan HBr [Robitussin] 15 mg PO Q6H PRN #20 capsule 12/10/17 Docusate Sodium [Colace] 100 mg PO BID #60 capsule 12/10/17 Ferrous Sulfate [Feosol] 325 mg PO BID #60 tablet 12/10/17 Topiramate [Topamax -] 200 mg PO BID #60 tablet 12/10/17 <Shabnam Rodriguez - Last Filed: 12/10/17 10:50> Reason For Visit: DYSPNEA Current Active Problems Anemia (Acute) Anxiety (Chronic) - Home Medications Comprehensive Discharge Medication List: Ambulatory Orders Fluoxetine HCl [Prozac -] 40 mg PO DAILY 09/15/14 Gabapentin [Neurontin -] 600 mg PO TID 09/15/14 [place]-3 Fatty Acids [[place]-3] 1,000 mg PO BID 09/15/14 Albuterol Sulfate Inhaler - [Ventolin HFA Inhaler -] 1 - 2 inh PO QID 03/15/16 Liraglutide [Victoza -] 1.8 mg SQ DAILY@1200 03/15/17 clonazePAM [Klonopin -] 0.5 mg PO BID PRN 05/12/17 Meclizine HCl [Antivert -] 12.5 mg PO Q6H PRN #20 tablet 06/27/17 Aspirin 81 mg PO DAILY 08/15/17 Ergocalciferol (Vitamin D2) [Vitamin D2] 50,000 units PO WEEKLY 08/15/17 Levothyroxine [Synthroid -] 50 mcg PO DAILY 08/15/17 Atorvastatin Ca [Lipitor] 20 mg PO HS 09/09/17 Tiotropium [place] [Spiriva] 1 inh PO DAILY 09/09/17 Loratadine [Claritin] 10 mg PO DAILY 09/11/17 Albuterol 2.5/Ipratropium 0.5 [Duoneb -] 1 amp NEB RQID #120 amp 10/31/17 Diclofenac Sodium [Voltaren] 2 gm TP TID PRN 11/30/17 Hydrocodone/Acetaminophen [Hydrocodone-Acetamin 10-325 mg] 1 each PO BID PRN # 60 tablet MDD 2 11/30/17 Insulin (Novolog) [Novolog Flexpen -] 0 units SQ BIDAC 11/30/17 Insulin Glargine,Hum.rec.anlog [Lantus Solostar] 50 unit SQ DAILY 11/30/17 Furosemide [Lasix] 20 mg PO DAILY 12/08/17 Lisinopril 5 mg PO DAILY 12/08/17 Dextromethorphan HBr [Robitussin] 15 mg PO Q6H PRN #20 capsule 12/10/17 Topiramate [Topamax -] 200 mg PO BID #60 tablet 12/10/17 <Herman Cai - Last Filed: 12/18/17 22:06> Condition: Stable - Instructions Diet, Activity, Other Instructions: You were hospitalized due to your seizure yesterday. You were also found to have no heart problems causing your chest pain and most likely this is a mix between reflux and your new diagnosis of COPD which can be worked up on an outpatient basis. Medications: We increased your Topamax to 200mg TWICE daily by MOUTH You will also need iron supplementation for your anemia which will require you to have a stool softener as well due to the constipating nature of the medication --These new prescription has been sent to your pharmacy Continue your medication as you have been Follow-ups: Please follow-up with Dr. Wagner on an outpatient basis for your seizure control Please follow-up with Dr. Hugo per your regular schedule Please follow-up with your primary care doctor to discuss what has happened here today and regarding your anemia Please follow-up with your doper operator due to your previous vaginal bleed as this is something that should be followed Referrals: Jhonathan Wagner DO [Staff Physician] - Marco Antonio Hugo MD [Staff Physician] - Damaris Solis MD [Primary Care Provider] - Disposition: HOME This patient is new to me today: No Emergency Visit: No Critical Care patient: No - Discharge Referral Referred to [facility] No <Herman Cai - Last Filed: 12/18/17 22:06>
[2017-12-10] MEDS ORDERED: guaiFENesin 200 MG/10 ML 10 ML UNIT-DOSE CUPS PO PRN (10:43)
[2017-12-10] MEDS: LIRAGLUTIDE 0.6 MG/0.1 ML PEN.INJCTR SQ SCH (11:41)
[2017-12-10] MEDS: oxyCODONE HCL 5 MG TABLET PO PRN (12:10)
[2017-12-10 17:12] VITALS: BP 118/62; PULSE 96
== END 2017-12-10 15:20 | disposition home or self-care (01) ==
LOC: JER 10:57 → JERBED 13:23 → J6S 12-09 03:38
PROVIDERS: ADMIT Internal Medicine; ATTEND Internal Medicine
PROC: 3E033GC Introduction of Other Therapeutic Substance into Peripheral Vein, Percutaneous Approach (ICD-10-PCS; principal; 2017-12-08)
PROC: 3E013VG Introduction of Insulin into Subcutaneous Tissue, Percutaneous Approach (ICD-10-PCS; 2017-12-08)
PROC: 3E013GC Introduction of Other Therapeutic Substance into Subcutaneous Tissue, Percutaneous Approach (ICD-10-PCS; 2017-12-08)
PROC: 3E0F7GC Introduction of Other Therapeutic Substance into Respiratory Tract, Via Natural or Artificial Opening (ICD-10-PCS; 2017-12-08)
DX: D64.9 Anemia, unspecified (principal); J45.909 Unspecified asthma, uncomplicated; J44.1 Chronic obstructive pulmonary disease with (acute) exacerbation; F41.9 Anxiety disorder, unspecified; F31.9 Bipolar disorder, unspecified; E11.22 Type 2 diabetes mellitus with diabetic chronic kidney disease; E11.65 Type 2 diabetes mellitus with hyperglycemia; I12.9 Hypertensive chronic kidney disease with stage 1 through stage 4 chronic kidney disease, or unspecified chronic kidney disease; N18.3 Chronic kidney disease, stage 3 (moderate); Z79.4 Long term (current) use of insulin; G40.909 Epilepsy, unspecified, not intractable, without status epilepticus; Z86.73 Personal history of transient ischemic attack (TIA), and cerebral infarction without residual deficits; G47.33 Obstructive sleep apnea (adult) (pediatric); E66.01 Morbid (severe) obesity due to excess calories; Z68.41 Body mass index [BMI] 40.0-44.9, adult; E55.9 Vitamin D deficiency, unspecified; R06.02 Shortness of breath; Z87.891 Personal history of nicotine dependence; Z91.041 Radiographic dye allergy status; Z88.1 Allergy status to other antibiotic agents; Z79.82 Long term (current) use of aspirin; I50.30 Unspecified diastolic (congestive) heart failure; E78.5 Hyperlipidemia, unspecified; E03.9 Hypothyroidism, unspecified; R07.89 Other chest pain
CPT/HCPCS: 36415; 71045-TC-FY; 80053; 81003; 82272; 82550; 82728; 82962; 83540; 83550; 83735; 83880; 84100; 84466; 84484; 84703; 85025; 93005; 93010; 94640; 96372; 96374; 99284-25; G0378; J1644; J7620

== ENCOUNTER 2017-12-11 13:18 | Observation (INO) | payer OTHER ==
--- NOTE | 2017-12-11 15:03 | PDOC ---
History of Present Illness - General Chief Complaint: Syncope/Near Syncope Stated Complaint: SYNCOPE Time Seen by Provider: 12/11/17 14:37 - History of Present Illness Initial Comments: 12/11/17 15:00 52 yo F with h/o seizures, DM, COPD, hypothyroidism, asthma, anxiety, HTN, Diastolic CHF, CVA ( 2014), who p/w syncope. Patient reports acute onset of non productive cough, wheezing, and SOB yesterday evening ( no home O2 requirements) . States that she was at PMD this AM and returning from bathroom while ambulating with home health aide at side, when patient became lightheaded, and SOB, Arora, and her legs "buckled." Patient was caught by home health aide and assited/controlled to gro where she was awake,with eyes partially open, but unresponsive to questions for 3 seconds.No witnessed convulsions, head trauma, or head/neck/back trauma. Patient was sit up on ground and responsive shortly thereafter. Also reports transient episode of sharp, non pleuritic, retrosternal chest discomfort yesterday evening. Patient states that her blood sugars have been well controlled at home. Denies F/C, N/V, CP, orthopnea, leg swelling, SOB, abdominal pain, diarrhea, constipation, urinary complaints, weakness, , sensory changes PMHx: as noted above. Recent [facility] admission for new onset seizure disorder ( -12/10); started on Topamax. Daily duoneb use. Denies h/o CAD/DC. Denies h/o PE/DVT. Denies h/o malignancy. Previous head CT ( 11/06/17) with no intracranial changes. ROS: as noted above SHx: Tobacco cessation 4 years ago. Denies Etoh intake, or IVDA. Past History - Past Medical History Allergies/Adverse Reactions: Allergies Allergy/AdvReac Type Severity Reaction Status Date / Time Iodinated Contrast- Oral and Allergy Intermediate Itching Verified 12/11/17 13: 46 IV Dye [Iodinated Contrast Media - IV Dye] azithromycin AdvReac Intermediate Itching Verified 12/11/17 13:46 tramadol AdvReac Verified 12/11/17 13:46 Home Medications: Ambulatory Orders Fluoxetine HCl [Prozac -] 40 mg PO DAILY 09/15/14 Gabapentin [Neurontin -] 600 mg PO TID 09/15/14 [place]-3 Fatty Acids [[place]-3] 1,000 mg PO BID 09/15/14 Albuterol Sulfate Inhaler - [Ventolin HFA Inhaler -] 1 - 2 inh PO QID 03/15/16 Liraglutide [Victoza -] 1.8 mg SQ DAILY@1200 03/15/17 clonazePAM [Klonopin -] 0.5 mg PO BID PRN 05/12/17 Meclizine HCl [Antivert -] 12.5 mg PO Q6H PRN #20 tablet 06/27/17 Aspirin 81 mg PO DAILY 08/15/17 Levothyroxine [Synthroid -] 50 mcg PO DAILY 08/15/17 Atorvastatin Ca [Lipitor] 20 mg PO HS 09/09/17 Tiotropium [place] [Spiriva] 1 inh PO DAILY 09/09/17 Loratadine [Claritin] 10 mg PO DAILY 09/11/17 Albuterol 2.5/Ipratropium 0.5 [Duoneb -] 1 amp NEB RQID #120 amp 10/31/17 Insulin (Novolog) [Novolog Flexpen -] 0 units SQ BIDAC 11/30/17 Insulin Glargine,Hum.rec.anlog [Lantus Solostar] 50 unit SQ DAILY 11/30/17 Furosemide [Lasix] 20 mg PO DAILY 12/08/17 Lisinopril 5 mg PO DAILY 12/08/17 Cholecalciferol (Vitamin D3) [D3-50] 50,000 unit PO WEEKLY #10 capsule 12/10/17 Docusate Sodium [Colace] 100 mg PO BID #60 capsule 12/10/17 Ferrous Sulfate [Feosol] 325 mg PO BID #60 tablet 12/10/17 Guaifenesin [Robitussin -] 10 ml PO Q6H PRN #120 cup 12/10/17 Topiramate [Topamax -] 200 mg PO BID #60 tablet 12/10/17 Asthma: Yes Cardiac Disorders: No 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) COPD: Yes CHF: No Dementia: No Diabetes: Yes (IDDM) GI Disorders: No Disorders: No HTN: Yes Hypercholesterolemia: Yes Liver Disease: Yes (hep C - treated) Psychiatric Problems: Yes (depression) Seizures: Yes Thyroid Disease: Yes (hypothyroid) Other medical history: syncope - Surgical History Abdominal Surgery: Yes (UMBILICAL HERNIA) - Immunization History Immunization Up to Date: No - Suicide/Smoking/Psychosocial Hx Smoking History: Unknown if ever smoked Have you smoked in the past 12 months: No If you are a former smoker, when did you quit?: 2014 Information on smoking cessation initiated: No 'Breaking Loose' booklet given: 09/16/14 Hx Alcohol Use: No Drug/Substance Use Hx: No Substance Use Type: None Hx Substance Use Treatment: No Review of Systems - Review of Systems Comments:: 12/11/17 15:01 GENERAL/CONSTITUTIONAL: No fever or chills. No weakness. HEAD, EYES, EARS, NOSE AND THROAT: No change in vision. No ear pain or discharge. No sore throat. CARDIOVASCULAR: No chest pain or shortness of breath RESPIRATORY: + cough, wheezing. No hemoptysis. GASTROINTESTINAL: No nausea, vomiting, diarrhea or constipation. GENITOURINARY: No dysuria, frequency, or change in urination. MUSCULOSKELETAL: No joint or muscle swelling or pain. No neck or back pain. SKIN: No rash NEUROLOGIC: No headache, vertigo, loss of consciousness, or change in strength/ sensation. ENDOCRINE: No increased thirst. No abnormal weight change HEMATOLOGIC/LYMPHATIC: No anemia, easy bleeding, or history of blood clots. ALLERGIC/IMMUNOLOGIC: No hives or skin allergy. *Physical Exam - Vital Signs Last Vital Signs Temp Pulse Resp BP Pulse Ox 97.8 F 94 H 16 140/54 100 12/11/17 13:20 12/11/17 13:20 12/11/17 13:20 12/11/17 13:20 12/11/17 13:20 - Physical Exam Comments: 12/11/17 15:01 GENERAL: Awake, alert, and fully oriented, in no acute distress HEAD: No signs of trauma, normocephalic, atraumatic EYES: PERRLA, EOMI, sclera anicteric, conjunctiva clear ENT: Dry oral mucosa.Auricles normal inspection, hearing grossly normal, nares patent, oropharynx clear without exudates. NECK: Normal ROM, supple, no lymphadenopathy, JVD, or masses LUNGS: Exp rhonci at bases. No distress, speaks full sentences. HEART: Regular rate and rhythm, normal S1 and S2, no murmurs, rubs or gallops, peripheral pulses normal and equal bilaterally. ABDOMEN: Soft, nontender, normoactive bowel sounds. No guarding, no rebound. No masses EXTREMITIES : Normal inspection, Normal range of motion, no edema. No clubbing or cyanosis. NEUROLOGICAL: Cranial nerves II through XII grossly intact. Normal speech, no focal sensorimotor deficits. Absent dysmetria on FTN. Normal EYAL, and HTS. SKIN: Warm, Dry, normal turgor, no rashes or lesions noted ED Treatment Course - LABORATORY CBC & Chemistry Diagram: 12/11/17 15:39 12/11/17 18:30 Medical Decision Making - Medical Decision Making 12/11/17 16:02 52 yo F with h/o seizures, DM, COPD, hypothyroidism, asthma, anxiety, HTN, Diastolic CHF, CVA ( 2014), who p/w syncope. VSS, 100 02 on 1 L NC, A&Ox3. Will assess for hypoglycemia, electrolyte abnml, metabolic derrangement, acid-base and toxic disturbances, underlying infection ( UTI, PNA). Differential also includes CVA/TIA ( absent focal neruo deficits), COPD, CHF ( less likely- no clinical s/s of fluid overload). Low risk PE weils criteria. PERC +. ED Course: CBC, CMP, BNP, Cardiac Pr, Urine preg, UA EKG, CXR 12/11/17 17:20 EKG: NSR with absent KIANA,STD, or TWI. Normal interval duration and axis. 12/11/17 19:06 CT HEAD: Unremarkable. No intracranial pathology. 12/11/17 19:07 HCG: Neg Trop: Neg POC Glu: 194 BUN: 25 CBC: Unremarkable Repeat VS. BP 126/70, HR~108, O2~98 on RA. 12/11/17 21:10 On re-evaluation patient experienced another syncopal event following ambulation from bathroom. Patient returns to bed and attempts to turn around with walker and slid down the bed onto R side. She denies head/neck/back trauma , but reports SOB, and lightheadedness Patient admitted to Dr. Ferris. *DC/Admit/Observation/Transfer Diagnosis at time of Disposition: Pre-syncope Chest pain Qualifiers: Chest pain type: unspecified Qualified Code(s): R07.9 - Chest pain, unspecified - Discharge Dispostion Disposition: HOME Condition at time of disposition: Stable Decision to Admit order: No - Referrals Referrals: Damaris Solis MD [Primary Care Provider] - - Patient Instructions Printed Discharge Instructions: DI for Syncope in Adults (Fainting) Additional Instructions: Please return to the emergency department with any new or worsening symptoms or concerns. Please follow up with your primary care physician within 72 hours. - Post Discharge Activity - Attestations Physician Attestion: 12/11/17 19:10 I attest to the information provided in this note.
[2017-12-11 15:57] LABS: BASO % 0.6 % (0-2.0); EOS % 2.8 % (0-4.5); HEMATOCRIT 28.4 % (32.4-45.2); LYMPH % 24.6 % (8-40); MCH 24.5 pg (25.7-33.7); MCHC 31.7 g/dl (32.0-36.0); MEAN CELL VOLUME 77.3 fl (80-96); MONO % 8.2 % (3.8-10.2); NEUT % 63.8 % (42.8-82.8); PLATELET COUNT 266 K/MM3 (134-434); RBC 3.67 M/mm3 (3.60-5.2); RDW 15.8 % (11.6-15.6); WHITE BLOOD COUNT 8.6 K/mm3 (4.0-10.0)
[2017-12-11 16:08] LABS: INR 1.04 (0.82-1.09); PROTHROMBIN TIME (PATIENT) 11.7 SEC (9.7-13.0)
[2017-12-11] MEDS ORDERED: ALBUTEROL SO4 2.5/IPRATROPIUM 0.5 INH SOL 3 ML VIAL.NEB. NEB ONE ×2 (17:06→17:13)
[2017-12-11] MEDS ORDERED: SODIUM CHLORIDE 1,000 ML IV STA (17:06)
--- NOTE | 2017-12-11 18:46 | PDOC ---
Attending Attestation - Resident Resident Name: Lenin Angela - ED Attending Attestation I have performed the following: I have examined & evaluated the patient, The case was reviewed & discussed with the resident, I agree w/resident's findings & plan, Exceptions are as noted - HPI HPI: 12/11/17 18:41 The patient is a 52 year female with history of obesity, hypertension, seizure disorder, COPD, asthma, anxiety, who presents to the ED complaining of a fainting episode prior to ED arrival. The patient states she has been experiencing chest tightness, shortness of breath, and nonproductive cough since yesterday. Pt states that it feels like a COPD exacerbation. She was being seen at her PCP's office today for treatment when she had a syncopal episode. Pt states that she went to the bathroom, and on her way back, she began to feel very lightheaded. Her health aide at bedside who witnessed the fall caught the patient and states she was unconscious for only a few seconds. No head trauma. No seizure like activity was witnessed. Pt awoke and returned to baseline immediately after. Pt denies ever having chest pain or shortness of breath. No nausea, vomiting, or diaphoresis. She states that she now feels back to normal. - Physicial Exam PE: 12/11/17 18:43 "GENERAL: Awake, alert, and fully oriented, in no acute distress. +Morbid obesity. HEAD: No signs of trauma EYES: PERRLA, EOMI, sclera anicteric, conjunctiva clear ENT: Auricles normal inspection, hearing grossly normal, nares patent, oropharynx clear without exudates. Moist mucosa NECK: Nontender, no stepoffs, Normal ROM, supple, no lymphadenopathy, JVD, or masses LUNGS: + mild expiratory wheezes. no crackles HEART: Regular rate and rhythm, normal S1 and S2. ABDOMEN: Soft, nontender, normoactive bowel sounds. No guarding, no rebound. No masses EXTREMITIES: Normal range of motion, no edema. No clubbing or cyanosis. No cords, erythema, or tenderness NEUROLOGICAL: Cranial nerves II through XII intact. 5/5 strength and sensation in all extremities, Normal speech, normal gait, normal cerebellar function SKIN: Warm, Dry, normal turgor, no rashes or lesions noted. " - Medical Decision Making 12/11/17 18:44 52 F with syncopal episode. Likely vasovagal as pt had just gone to bathroom. Pt well appearing now with normal vitals. Exam notable for mild wheezing, consistent with mild COPD exacerbation. - Labs, trop, BNP - CXR - Nebs - Reassess
[2017-12-11 18:54] LABS: N-TERMINAL BNP 25.73 pg/ml (5-125)
[2017-12-11 19:11] LABS: ALBUMIN 3.6 g/dl (3.4-5.0); ANION GAP 8 (8-16); BILIRUBIN,TOTAL 0.3 mg/dL (0.2-1.0); BLOOD UREA NITROGEN 15 mg/dL (7-18); CHLORIDE 107 mmol/L (98-107); CO2 24 mmol/L (21-32); CREATININE 0.9 mg/dL (0.55-1.02); GLUCOSE,RANDOM 166 mg/dL (74-106); POTASSIUM 4.2 mmol/L (3.5-5.1); SGOT/AST 11 U/L (15-37); SGPT/ALT 16 U/L (12-78); SODIUM 139 mmol/L (136-145); TOT PROT 7.6 g/dl (6.4-8.2)
[2017-12-11 19:12] LABS: ALK PHOS 84 U/L (45-117)
--- NOTE | 2017-12-11 21:56 | HP ---
Admitting History and Physical - Primary Care Physician PCP: Nando Ferris - Admission Chief Complaint: syncope History of Present Illness: 52 yo F with h/o seizures, DM, COPD, hypothyroidism, asthma, anxiety, HTN, Diastolic CHF, CVA ( 2015), who p/w syncope. Patient reports acute onset of non productive cough, wheezing, and SOB yesterday evening ( no home O2 requirements) . States that she was at PMD this AM and returning from bathroom while ambulating with home health aide at side, when patient became lightheaded, and SOB, Arora, and her legs "buckled." Patient was caught by home health aide and assited/controlled to gro where she was awake,with eyes partially open, but unresponsive to questions for 3 seconds.No witnessed convulsions, head trauma, or head/neck/back trauma. Patient was sit up on ground and responsive shortly thereafter. Also reports transient episode of sharp, non pleuritic, retrosternal chest discomfort yesterday evening. - Past Medical History VAN LOADER: Yes: CVA, Seizure, TIA Cardiovascular: Yes: CAD, HTN, Hyperlipdemia Pulmonary: Yes: Sleep Apnea ...LMP: 10/27/17 Infectious Disease: Yes: Other (Hep C) Psych: Yes: Anxiety, Bipolar Endocrine: Yes: Diabetes Mellitus - Past Surgical History Past Surgical History: Yes: - Smoking History Smoking history: Unknown if ever smoked Have you smoked in the past 12 months: No If you are a former smoker, when did you quit?: 2015 - Alcohol/Substance Use Hx Alcohol Use: No - Social History ADL: Independent History of Recent Travel: No Home Medications - Allergies Allergies/Adverse Reactions: Allergies Allergy/AdvReac Type Severity Reaction Status Date / Time Iodinated Contrast- Oral and Allergy Intermediate Itching Verified 12/11/17 13: 46 IV Dye [Iodinated Contrast Media - IV Dye] azithromycin AdvReac Intermediate Itching Verified 12/11/17 13:46 tramadol AdvReac Verified 12/11/17 13:46 - Home Medications Home Medications: Ambulatory Orders Fluoxetine HCl [Prozac -] 40 mg PO DAILY 09/15/14 Gabapentin [Neurontin -] 600 mg PO TID 09/15/14 [place]-3 Fatty Acids [[place]-3] 1,000 mg PO BID 09/15/14 Albuterol Sulfate Inhaler - [Ventolin HFA Inhaler -] 1 - 2 inh PO QID 03/15/16 Liraglutide [Victoza -] 1.8 mg SQ DAILY@1200 03/15/17 clonazePAM [Klonopin -] 0.5 mg PO BID PRN 05/12/17 Meclizine HCl [Antivert -] 12.5 mg PO Q6H PRN #20 tablet 06/27/17 Aspirin 81 mg PO DAILY 08/15/17 Levothyroxine [Synthroid -] 50 mcg PO DAILY 08/15/17 Atorvastatin Ca [Lipitor] 20 mg PO HS 09/09/17 Tiotropium Dell [Spiriva] 1 inh PO DAILY 09/09/17 Loratadine [Claritin] 10 mg PO DAILY 09/11/17 Albuterol 2.5/Ipratropium 0.5 [Duoneb -] 1 amp NEB RQID #120 amp 10/31/17 Insulin (Novolog) [Novolog Flexpen -] 0 units SQ BIDAC 11/30/17 Insulin Glargine,Hum.rec.anlog [Lantus Solostar] 50 unit SQ DAILY 11/30/17 Furosemide [Lasix] 20 mg PO DAILY 12/08/17 Lisinopril 5 mg PO DAILY 12/08/17 Cholecalciferol (Vitamin D3) [D3-50] 50,000 unit PO WEEKLY #10 capsule 12/10/17 Docusate Sodium [Colace] 100 mg PO BID #60 capsule 12/10/17 Ferrous Sulfate [Feosol] 325 mg PO BID #60 tablet 12/10/17 Guaifenesin [Robitussin -] 10 ml PO Q6H PRN #120 cup 12/10/17 Topiramate [Topamax -] 200 mg PO BID #60 tablet 12/10/17 Oxycodone HCl/Acetaminophen [Percocet 10-325 mg Tablet] 1 each PO BID PRN Nebivolol [Bystolic -] 2.5 mg PO DAILY #30 tab 12/13/17 Family Disease History - Family Disease History Family Disease History: Diabetes: Mother (,), Brother (one living - etoh ), Sister (two living - ), Heart Disease: Father (living, no contact,etoh), Sister, Respiratory: Father, Other: Father, Mother, Brother, Sister, Daughter ( one with etoh) Physical Examination Vital Signs: Vital Signs Temperature 97.6 F 12/11/17 18:33 Pulse Rate 98 H 12/11/17 18:33 Respiratory Rate 22 12/11/17 18:33 Blood Pressure 109/73 12/11/17 18:33 O2 Sat by Pulse Oximetry (%) 100 12/11/17 18:33 Constitutional: Yes: No Distress HENT: Yes: Atraumatic Neck: Yes: Supple Cardiovascular: Yes: Regular Rate and Rhythm Respiratory: Yes: CTA Bilaterally Gastrointestinal: Yes: Normal Bowel Sounds Extremities: Yes: WNL Neurological: Yes: Alert, Oriented Labs: CBC, BMP 12/11/17 15:39 12/11/17 18:30 Imaging - Results Chest X-ray: Report Reviewed Cat Scan: Report Reviewed Problem List - Problems (1) Pre-syncope Assessment/Plan: resolved on tele monitor Code(s): R55 - SYNCOPE AND COLLAPSE (2) Bipolar disorder Code(s): F31.9 - BIPOLAR DISORDER, UNSPECIFIED Qualifiers: (3) Chronic renal insufficiency, stage III (moderate) Code(s): N18.3 - CHRONIC KIDNEY DISEASE, STAGE 3 (MODERATE) (4) Diabetes Assessment/Plan: on insulin, bgms, po meds Code(s): E11.9 - TYPE 2 DIABETES MELLITUS WITHOUT COMPLICATIONS (5) HTN (hypertension) Assessment/Plan: on meds stable Code(s): I10 - ESSENTIAL (PRIMARY) HYPERTENSION Qualifiers: Hypertension type: essential hypertension Qualified Code(s): I10 - Essential (primary) hypertension (6) Hypercholesterolemia Code(s): E78.00 - PURE HYPERCHOLESTEROLEMIA, UNSPECIFIED (7) MARILU (obstructive sleep apnea) Code(s): G47.33 - OBSTRUCTIVE SLEEP APNEA (ADULT) (PEDIATRIC) (8) Obesity, Class III, BMI 40-49.9 (morbid obesity) Code(s): E66.01 - MORBID (SEVERE) OBESITY DUE TO EXCESS CALORIES (9) COPD exacerbation Code(s): J44.1 - CHRONIC OBSTRUCTIVE PULMONARY DISEASE W (ACUTE) EXACERBATION Assessment/Plan Laboratory Tests 12/11/17 12/11/17 12/11/17 15:39 15:39 15:39 WBC 8.6 RBC 3.67 Hgb 9.0 L Hct 28.4 L MCV 77.3 L MCH 24.5 L MCHC 31.7 L RDW 15.8 H Plt Count 266 MPV 9.0 Neutrophils % 63.8 Lymphocytes % 24.6 Monocytes % 8.2 Eosinophils % 2.8 Basophils % 0.6 PT with INR 11.70 INR 1.04 Sodium Cancelled Potassium Cancelled Chloride Cancelled Carbon Dioxide Cancelled Anion Gap Cancelled BUN Cancelled Creatinine Cancelled Creat Clearance w eGFR Cancelled POC Glucometer Random Glucose Cancelled Calcium Cancelled Total Bilirubin Cancelled AST Cancelled ALT Cancelled Alkaline Phosphatase Cancelled Creatine Kinase Cancelled Troponin I Cancelled B-Natriuretic Peptide Total Protein Cancelled Albumin Cancelled Urine HCG, Qual 12/11/17 12/11/17 12/11/17 15:57 18:00 18:17 WBC RBC Hgb Hct MCV MCH MCHC RDW Plt Count MPV Neutrophils % Lymphocytes % Monocytes % Eosinophils % Basophils % PT with INR INR Sodium Potassium Chloride Carbon Dioxide Anion Gap BUN Creatinine Creat Clearance w eGFR POC Glucometer Random Glucose Calcium Total Bilirubin AST ALT Alkaline Phosphatase Creatine Kinase 55 Troponin I < 0.02 B-Natriuretic Peptide Cancelled 25.73 Total Protein Albumin Urine HCG, Qual Negative 12/11/17 12/11/17 18:28 18:30 WBC RBC Hgb Hct MCV MCH MCHC RDW Plt Count MPV Neutrophils % Lymphocytes % Monocytes % Eosinophils % Basophils % PT with INR INR Sodium 139 Potassium 4.2 Chloride 107 Carbon Dioxide 24 Anion Gap 8 BUN 15 Creatinine 0.9 Creat Clearance w eGFR > 60 POC Glucometer [phone] Random Glucose 166 H Calcium 9.0 Total Bilirubin 0.3 AST 11 L ALT 16 Alkaline Phosphatase 84 Creatine Kinase Troponin I B-Natriuretic Peptide Total Protein 7.6 Albumin 3.6 Urine HCG, Qual Active Medications Generic Name Dose Route Start Last Admin Trade Name Freq PRN Reason Stop Dose Admin Acetaminophen 650 mg 12/11/17 21:55 Tylenol - PO Q6H PRN FEVER Aspirin 81 mg 12/12/17 10:00 Asa - PO DAILY [facility] Atorvastatin Calcium 20 mg 12/11/17 22:00 Lipitor - PO HS SHAUN Clonazepam 0.5 mg 12/11/17 21:48 Klonopin - PO Q12H PRN ANXIETY Fluoxetine HCl 40 mg 12/12/17 10:00 Prozac - PO DAILY SHA[facility] Furosemide 20 mg 12/12/17 10:00 Lasix - PO DAILY [facility] Insulin Aspart 1 vial 12/11/17 22:00 Novolog Vial Sliding Scale - SQ ACHS [facility] Protocol Lisinopril 5 mg 12/12/17 10:00 Prinivil PO DAILY [facility] Non-Formulary Medication 50 unit 12/12/17 10:00 Insulin Glargine,Hum.Rec.Anlog [Lantus Solostar] SQ DAILY [facility] Tiotropium [place] 1 puff 12/12/17 10:00 Spiriva - IH DAILY [facility] Topiramate 200 mg 12/11/17 22:00 Topamax - PO BID [facility] continue homemeds
[2017-12-11] MEDS ORDERED: GABAPENTIN 300 MG CAPSULE (FP) PO ONE (22:07)
[2017-12-11] MEDS: ATORVASTATIN CA 20 MG TABLET (FP) PO SCH (22:47)
[2017-12-11] MEDS: TOPIRAMATE 200 MG TABLET (FP) PO SCH (22:47)
[2017-12-11] MEDS ORDERED: INSULIN REGULAR HUMAN 100 UNITS/ML *VIAL ONE (22:49)
[2017-12-11] MEDS: INSULIN SLIDING SCALE (NOVOLOG) 1 VIAL SQ SCH (22:53)
[2017-12-12 03:06] VITALS: BMI 48.1
[2017-12-12] MEDS: INSULIN SLIDING SCALE (NOVOLOG) 1 VIAL SQ SCH ×4 (06:23→21:10)
[2017-12-12] MEDS ORDERED: PT OWN MED DRAWER 7, Y5N ONE ×3 (09:01→21:04)
[2017-12-12] MEDS: TIOTROPIUM BROMIDE 18 MCG CAPSULES IH SCH (09:12)
[2017-12-12] MEDS: LISINOPRIL 5 MG TABLET (FP) PO SCH (09:12)
[2017-12-12] MEDS: ASPIRIN 81 MG CHEWABLE TABLETS PO SCH (09:12)
[2017-12-12] MEDS: FLUoxetine HCL 20 MG CAPSULE (FP) PO SCH (09:12)
--- NOTE | 2017-12-12 09:13 | PN ---
Progress Note (short form) - Note Progress Note: Chief Complaint: Events noted, notes reviewed, complaining of persistent dyspnea , reported palpitations with associated dizziness and syncope/near syncope, denies any chest pain History of Present Illness: Seen and examined on telemetry. Full consult dictated Echocardiography 09/11/17 revealed normal LV size and function with no significant valvular pathology - Current Medication List Current Medications Acetaminophen (Tylenol -) 650 mg PO Q6H PRN PRN Reason: FEVER Aspirin (Asa -) 81 mg PO DAILY [facility] Last Admin: 12/12/17 09:12 Dose: 81 mg Atorvastatin Calcium (Lipitor -) 20 mg PO HS [facility] Last Admin: 12/11/17 22:47 Dose: 20 mg Clonazepam (Klonopin -) 0.5 mg PO Q12H PRN PRN Reason: ANXIETY Fluoxetine HCl (Prozac -) 40 mg PO DAILY [facility] Last Admin: 12/12/17 09:12 Dose: 40 mg Furosemide (Lasix -) 20 mg PO DAILY [facility] Last Admin: 12/12/17 09:12 Dose: 20 mg Insulin Aspart (Novolog Vial Sliding Scale -) 1 vial SQ ACHS [facility] PRN Reason: Protocol Last Admin: 12/12/17 06:23 Dose: 12 units Lisinopril (Prinivil) 5 mg PO DAILY [facility] Last Admin: 12/12/17 09:12 Dose: 5 mg Non-Formulary Medication (Insulin Glargine,Hum.Rec.Anlog [Lantus Solostar]) 50 unit SQ DAILY [facility] Tiotropium [place] (Spiriva -) 1 puff IH DAILY [facility] Last Admin: 12/12/17 09:12 Dose: 1 puff Topiramate (Topamax -) 200 mg PO BID [facility] Last Admin: 12/11/17 22:47 Dose: 200 mg - Review of Systems Constitutional: denies: Chills, Fever Cardiovascular: as noted above Respiratory: reports: Cough but no Sputum Production Gastrointestinal: denies: Nausea, Vomiting, Diarrhea, Constipation or Abdominal Discomfort Musculoskeletal: reports: Generalized Pain Neurological: denies: Headache - Objective Vital Signs: Last Vital Signs Temp Pulse Resp BP Pulse Ox 98.0 F 88 20 109/60 98 12/12/17 05:38 12/12/17 05:38 12/12/17 05:38 12/12/17 05:38 12/12/17 03:15 Intake & Output 12/09/17 12/10/17 12/11/17 12/12/17 23:59 23:59 23:59 23:59 Intake Total 10 Balance 10 Weight 236 lb 236 lb 8 oz Constitutional: No Distress, Calm Neck: Supple Negative JVD No Bruit Cardiovascular: S1 S2 Regular Rate and Rhythm Respiratory: Bilateral Minimal Scattered Rhonchi Gastrointestinal: Soft Benign Normal Bowel Sounds Ext: Negative Edema Labs: Troponin, BNP 12/11/17 12/11/17 12/11/17 11:05 15:39 15:57 Troponin I < 0.02 Cancelled B-Natriuretic Peptide Cancelled 12/11/17 12/12/17 18:00 01:38 Troponin I < 0.02 < 0.02 B-Natriuretic Peptide 25.73 CBC, BMP 12/11/17 15:39 12/11/17 18:30 Hepatic Panel Total Bilirubin 0.3 mg/dL (0.2-1.0) 12/11/17 18:30 AST 11 U/L (15-37) L 12/11/17 18:30 ALT 16 U/L (12-78) 12/11/17 18:30 Alkaline Phosphatase 84 U/L (45-117) 12/11/17 18:30 Albumin 3.6 g/dl (3.4-5.0) 12/11/17 18:30 INR, PTT INR 1.04 (0.82-1.09) 12/11/17 15:39 Assessment/Plan ASSESSMENT: 1. Recurrent syncope probably neuro-cardiogenic syncope, unclear vaso-depressor vs. cardio-inhibitory, cannot exclude vaso-vagal syncope, history of palpitations with no evidence of sustained arrhythmia 2. Acute exacerbation of COPD, chronic bronchitis 3. Sinus tachycardia, reactionary to above 4. Chest pain syndrome/CAD angina pectoris 5. Diastolic LV dysfunction with class 0-I NYHA classification LV failure, compensated/euvolemic 6. Hypertension 7. Diabetes mellitus 8. Hypercholesterolemia 9. Hypothyroidism 10. Obstructive sleep apnea 11. Anxiety disorder PLAN: 1. Continue Lisinopril 2. As outlined in prior notes from recent hospitalizations if sinus tachycardia and palpitations persist despite resolution of the above noted pulmonary pathology recommend the addition of Cardizem CD or Bystolic therapy with caution 3. Continue Lipitor 4. Continue ASA 5. Avoid diuretics 6. Steroids and bronchodilators as per the primary team Saulat Kael MD
[2017-12-12] MEDS ORDERED: FUROSEMIDE 20 MG TABLET (FP) PO SCH (10:00)
[2017-12-12] MEDS: TOPIRAMATE 200 MG TABLET (FP) PO SCH ×2 (10:27→21:53)
[2017-12-12] MEDS: NEBIVOLOL 2.5 MG TABLET (FP) PO SCH (10:27)
--- NOTE | 2017-12-12 10:45 | CONS ---
DATE OF CONSULTATION: 12/12/2017 REQUESTING PHYSICIAN: Nando Ferris MD CHIEF COMPLAINT: Evaluation of a syncopal episode. Patient known to our service from multiple recent hospitalizations. A 52-year-old, morbidly obese female of descent, with questionable history of coronary artery disease; angina pectoris; diastolic left ventricular dysfunction with chronic class 0-1 [place] [employer] classification left ventricular failure; hypertension cardiovascular disease; diabetes mellitus; hypercholesterolemia; cerebrovascular disease; recurrent syncopal episodes, unclear etiology, neurocardiogenic versus vasovagal syncope; advanced chronic obstructive pulmonary disease; obstructive sleep apnea, who presented to [facility] [place] from her primary care's office after a witnessed syncopal episode. Patient was evaluated in the office for exacerbation of the above-noted chronic obstructive pulmonary disease in form of progressive dyspnea and cough. Apparently, upon ambulating in her primary care's office from the bathroom, patient had sudden onset of dizziness, followed by a syncopal episode, but she was assisted by her home health aide to the floor; in view of which, no trauma was sustained. Patient denied any preceding palpitations. Patient has been reporting intermittent palpitations which are transitory. Patient denies any recent chest discomfort. Patient reports dyspnea with minimal physical activity. Patient denies any orthopnea or paroxysmal nocturnal dyspnea. Patient reports intermittent bilateral lower extremity edema that worsens in the latter part of the day. The patient reports fatigue and tiredness. PAST MEDICAL HISTORY: Questionable history of coronary artery disease; angina pectoris; diastolic left ventricular dysfunction with chronic class 0-1 [place] [employer] classification left ventricular failure; hypertensive cardiovascular disease; diabetes mellitus; hypercholesterolemia; cerebrovascular disease with no significant residual deficit; recurrent syncope, unclear, neurocardiogenic versus vasovagal syncope; advanced chronic obstructive pulmonary disease; obstructive sleep apnea. PAST SURGICAL HISTORY: section. SOCIAL HISTORY: Prior history of tobacco abuse. FAMILY HISTORY: Positive coronary artery disease. ALLERGIES: IV CONTRAST, AZITHROZYCIN, and TRAMADOL. MEDICAL THERAPY: Currently includes acetaminophen 650 mg every 6 hours as needed, aspirin 81 mg once a day, Lipitor 20 mg once a day, Klonopin 0.5 mg every 12 hours as needed, Prozac 40 mg once a day, Lasix 20 mg once a day, insulin, lisinopril 5 mg once a day, Spiriva, and Topamax. REVIEW OF SYSTEMS: Head and Neck: Denies headache, photophobia, blurring of vision. Respiratory: Cough nonproductive of sputum. Cardiovascular: As noted above. Gastrointestinal: Denies nausea, vomiting, diarrhea, abdominal discomfort. Genitourinary: No symptoms reported. Musculoskeletal: No symptoms reported. PHYSICAL EXAMINATION: Vital Signs: Blood pressure is 109/60 mmHg. Pulse rate is 88 beats per minute. Head and Neck: Pupils equal and reactive to light and accommodation. Extraocular muscles are intact. Anicteric sclerae. Negative JVD. No bruit appreciated. Chest: Minimal scattered rhonchi bilaterally. Cardiovascular: S1 and S2 regular. No murmur, clicks, or gallops. Abdomen: Soft, benign. Normoactive bowel sounds. Extremities: Negative edema. Intact distal pulses. No calf tenderness. Electrocardiogram revealed sinus rhythm, borderline left axis deviation with early transition, poor R-wave progression, nonspecific T-wave abnormality. Chest x-ray report was noted. CBC revealed white cell count of 8.6, hemoglobin 9.0, platelets 266. Basic metabolic profile revealed a sodium 139, potassium 4.2, BUN of 15, creatinine 0.9, glucose 166. CPK and troponin-I levels were noted. ASSESSMENT: 1. Recurrent syncope, probably neurocardiogenic syncope, unclear vasodepressor versus cardioinhibitory. Cannot exclude vasovagal syncope. Prior history of palpitations with no evidence of sustained arrhythmia. 2. Acute exacerbation of chronic obstructive pulmonary disease, chronic bronchitis. 3. Intermittent sinus tachycardia, reactionary to above. 4. History of chest pain syndrome in a patient with known history of coronary artery disease. 5. Diastolic left ventricular dysfunction with chronic class 0-1 [place] [employer] classification left ventricular failure, compensated/euvolemic. 6. Hypertension. 7. Diabetes mellitus. 8. Hypercholesterolemia. 9. Hypothyroidism. 10. History of obstructive sleep apnea. 11. History of anxiety disorder. RECOMMENDATION: 1. Continuation of lisinopril. 2. As outlined in prior notes from recent hospitalizations, if sinus tachycardia and palpitations persist despite resolution of the above-noted pulmonary pathology, recommend the addition of Cardizem CD or Bystolic therapy with caution. 3. Continue Lipitor. 4. Continue aspirin. 5. Avoid diuretics. 6. Steroids and bronchodilators as per the primary team. Thank you for the kind referral. LOCO DEL TORO M.D. SPENCER/[id number]
[2017-12-12] MEDS ORDERED: INSULIN (NOVOLOG) ASPART 100 UNITS/ML 10ML VIAL ONE ×2 (11:47→17:19)
--- NOTE | 2017-12-12 11:57 | EKG ---
Test Reason : Blood Pressure : / mmHG Vent. Rate : 094 BPM Atrial Rate : 094 BPM P-R Int : 148 ms QRS Dur : 088 ms QT Int : 374 ms P-R-T Axes : 047 -26 043 degrees QTc Int : 467 ms NORMAL SINUS RHYTHM MINIMAL VOLTAGE CRITERIA FOR LVH, MAY BE NORMAL VARIANT BORDERLINE ECG WHEN COMPARED WITH ECG OF 09-DEC-2017 11:21, NO SIGNIFICANT CHANGE WAS FOUND Confirmed by MD NEGRITO, CLEM ([id number]) on 12/12/2017 11:56:37 AM Referred By: Confirmed By:CLEM MAHAN MD
[2017-12-12 16:04] LABS: URINE APPEARANCE CLEAR; URINE BILIRUBIN NEGATIVE (<2.0 mg/dL); URINE COLOR STRAW; URINE GLUCOSE (UA) 3+ (NEGATIVE); URINE KETONE NEGATIVE (NEGATIVE); URINE LEUK ESTERASE NEGATIVE (NEGATIVE); URINE NITRITE NEGATIVE (NEGATIVE); URINE PROTEIN NEGATIVE (NEGATIVE); URINE UROBILINOGEN NEGATIVE mg/dL (0.2-1.0)
[2017-12-12 16:35] LABS: EPI CELLS RARE /HPF (FEW)
--- NOTE | 2017-12-12 16:56 | PN ---
Progress Note, Physician History of Present Illness: doing well - Current Medication List Current Medications: Active Medications Acetaminophen (Tylenol -) 650 mg PO Q6H PRN PRN Reason: FEVER Aspirin (Asa -) 81 mg PO DAILY [facility] Last Admin: 12/12/17 09:12 Dose: 81 mg Atorvastatin Calcium (Lipitor -) 20 mg PO HS [facility] Last Admin: 12/11/17 22:47 Dose: 20 mg Clonazepam (Klonopin -) 0.5 mg PO Q12H PRN PRN Reason: ANXIETY Fluoxetine HCl (Prozac -) 40 mg PO DAILY [facility] Last Admin: 12/12/17 09:12 Dose: 40 mg Insulin Aspart (Novolog Vial Sliding Scale -) 1 vial SQ ACHS [facility] PRN Reason: Protocol Last Admin: 12/12/17 11:52 Dose: 10 units Lisinopril (Prinivil) 5 mg PO DAILY [facility] Last Admin: 12/12/17 09:12 Dose: 5 mg Nebivolol (Bystolic -) 2.5 mg PO DAILY [facility] Last Admin: 12/12/17 10:27 Dose: 2.5 mg Non-Formulary Medication (Insulin Glargine,Hum.Rec.Anlog [Lantus Solostar]) 50 unit SQ DAILY [facility] Tiotropium [place] (Spiriva -) 1 puff IH DAILY [facility] Last Admin: 12/12/17 09:12 Dose: 1 puff Topiramate (Topamax -) 200 mg PO BID [facility] Last Admin: 12/12/17 10:27 Dose: 200 mg - Objective Vital Signs: Vital Signs Temperature 98.4 F 12/12/17 14:00 Pulse Rate 86 12/12/17 14:00 Respiratory Rate 20 12/12/17 14:00 Blood Pressure 107/51 12/12/17 14:00 O2 Sat by Pulse Oximetry (%) 97 12/12/17 10:00 Constitutional: Yes: No Distress HENT: Yes: Atraumatic Neck: Yes: Supple Cardiovascular: Yes: Regular Rate and Rhythm Respiratory: Yes: CTA Bilaterally Gastrointestinal: Yes: Normal Bowel Sounds Extremities: Yes: WNL Neurological: Yes: Alert, Oriented Labs: CBC, BMP 12/11/17 15:39 12/11/17 18:30 INR, PTT INR 1.04 (0.82-1.09) 12/11/17 15:39 Problem List - Problems (1) Pre-syncope Assessment/Plan: resolved on tele monitor Code(s): R55 - SYNCOPE AND COLLAPSE (2) Bipolar disorder Code(s): F31.9 - BIPOLAR DISORDER, UNSPECIFIED Qualifiers: (3) Chronic renal insufficiency, stage III (moderate) Code(s): N18.3 - CHRONIC KIDNEY DISEASE, STAGE 3 (MODERATE) (4) Diabetes Assessment/Plan: on insulin, bgms, po meds Code(s): E11.9 - TYPE 2 DIABETES MELLITUS WITHOUT COMPLICATIONS (5) HTN (hypertension) Code(s): I10 - ESSENTIAL (PRIMARY) HYPERTENSION Qualifiers: Hypertension type: essential hypertension Qualified Code(s): I10 - Essential (primary) hypertension (6) Hypercholesterolemia Code(s): E78.00 - PURE HYPERCHOLESTEROLEMIA, UNSPECIFIED (7) MARILU (obstructive sleep apnea) Code(s): G47.33 - OBSTRUCTIVE SLEEP APNEA (ADULT) (PEDIATRIC) (8) Obesity, Class III, BMI 40-49.9 (morbid obesity) Code(s): E66.01 - MORBID (SEVERE) OBESITY DUE TO EXCESS CALORIES (9) COPD exacerbation Code(s): J44.1 - CHRONIC OBSTRUCTIVE PULMONARY DISEASE W (ACUTE) EXACERBATION
[2017-12-12] MEDS ORDERED: ACETAMINOPHEN 325 MG TABLET (FP) PO PRN ×2 (17:00→17:01)
[2017-12-12] MEDS: ATORVASTATIN CA 20 MG TABLET (FP) PO SCH (21:11)
[2017-12-12] MEDS: GABAPENTIN 300 MG CAPSULE (FP) PO SCH (21:11)
[2017-12-12] MEDS: oxyCODONE HCL 5 MG TABLET PO PRN (21:22)
[2017-12-12] MEDS: ACETAMINOPHEN 325 MG TABLET (FP) PO PRN (21:23)
[2017-12-12] MEDS: clonazePAM 0.5 MG TABLET PO PRN (23:42)
[2017-12-13] MEDS: GABAPENTIN 300 MG CAPSULE (FP) PO SCH ×2 (05:52→14:04)
[2017-12-13] MEDS: INSULIN SLIDING SCALE (NOVOLOG) 1 VIAL SQ SCH ×3 (06:02→17:10)
[2017-12-13 06:59] LABS: BASO % 0.5 % (0-2.0); EOS % 3.2 % (0-4.5); HEMATOCRIT 27.6 % (32.4-45.2); HEMOGLOBIN 9.2 GM/dL (10.7-15.3); LYMPH % 29.6 % (8-40); MCH 25.7 pg (25.7-33.7); MCHC 33.2 g/dl (32.0-36.0); MEAN CELL VOLUME 77.3 fl (80-96); MEAN PLT VOLUME 9.1 fl (7.5-11.1); MONO % 8.6 % (3.8-10.2); NEUT % 58.1 % (42.8-82.8); PLATELET COUNT 239 K/MM3 (134-434); RBC 3.57 M/mm3 (3.60-5.2); RDW 15.7 % (11.6-15.6); WHITE BLOOD COUNT 9.5 K/mm3 (4.0-10.0)
[2017-12-13] MEDS ORDERED: INSULIN (LEVEMIR) 100 UNITS/ML UNITS SQ SCH (07:00)
[2017-12-13 08:03] VITALS: TEMP 98.1
[2017-12-13] MEDS: FERROUS SO4 325 MG TABLET (FP) PO SCH ×2 (08:07→17:08)
[2017-12-13] MEDS: oxyCODONE HCL 5 MG TABLET PO PRN (09:16)
[2017-12-13] MEDS: ACETAMINOPHEN 325 MG TABLET (FP) PO PRN (09:16)
[2017-12-13] MEDS: NEBIVOLOL 2.5 MG TABLET (FP) PO SCH (09:17)
[2017-12-13] MEDS: LISINOPRIL 5 MG TABLET (FP) PO SCH (09:17)
[2017-12-13] MEDS: TIOTROPIUM BROMIDE 18 MCG CAPSULES IH SCH (09:17)
[2017-12-13] MEDS: ASPIRIN 81 MG CHEWABLE TABLETS PO SCH (09:17)
[2017-12-13] MEDS: clonazePAM 0.5 MG TABLET PO PRN (09:17)
[2017-12-13] MEDS: TOPIRAMATE 200 MG TABLET (FP) PO SCH (09:17)
[2017-12-13] MEDS: FLUoxetine HCL 20 MG CAPSULE (FP) PO SCH (09:17)
--- NOTE | 2017-12-13 15:01 | PN ---
Progress Note, Physician History of Present Illness: No further near or true syncopal episodes. - Current Medication List Current Medications: Active Medications Acetaminophen (Tylenol -) 650 mg PO Q6H PRN PRN Reason: FEVER Last Admin: 12/13/17 09:16 Dose: 650 mg Acetaminophen (Tylenol -) 325 mg PO Q12H PRN PRN Reason: PAIN 4-6 Aspirin (Asa -) 81 mg PO DAILY COUNT INCLUDES THE [facility] Last Admin: 12/13/17 09:17 Dose: 81 mg Atorvastatin Calcium (Lipitor -) 20 mg PO HS COUNT INCLUDES THE [facility] Last Admin: 12/12/17 21:11 Dose: 20 mg Clonazepam (Klonopin -) 0.5 mg PO Q12H PRN PRN Reason: ANXIETY Last Admin: 12/13/17 09:17 Dose: 0.5 mg Ferrous Sulfate (Feosol -) 325 mg PO BIDWM COUNT INCLUDES THE [facility] Last Admin: 12/13/17 08:07 Dose: 325 mg Fluoxetine HCl (Prozac -) 40 mg PO DAILY COUNT INCLUDES THE [facility] Last Admin: 12/13/17 09:17 Dose: 40 mg Gabapentin (Neurontin -) 600 mg PO TID COUNT INCLUDES THE [facility] Last Admin: 12/13/17 14:04 Dose: 600 mg Insulin Aspart (Novolog Vial Sliding Scale -) 1 vial SQ ACHS COUNT INCLUDES THE [facility] PRN Reason: Protocol Last Admin: 12/13/17 11:46 Dose: 8 units Insulin Detemir (Levemir Vial) 50 units SQ 0700 COUNT INCLUDES THE [facility] Last Admin: 12/13/17 06:01 Dose: 50 units Lisinopril (Prinivil) 5 mg PO DAILY COUNT INCLUDES THE [facility] Last Admin: 12/13/17 09:17 Dose: 5 mg Nebivolol (Bystolic -) 2.5 mg PO DAILY COUNT INCLUDES THE [facility] Last Admin: 12/13/17 09:17 Dose: 2.5 mg Oxycodone HCl (Roxicodone -) 10 mg PO Q12H PRN PRN Reason: PAIN 4-6 Last Admin: 12/13/17 09:16 Dose: 10 mg Tiotropium [place] [facility] (Spiriva -) 1 puff IH DAILY COUNT INCLUDES THE [facility] Last Admin: 12/13/17 09:17 Dose: 1 puff Topiramate (Topamax -) 200 mg PO BID COUNT INCLUDES THE [facility] Last Admin: 12/13/17 09:17 Dose: 200 mg - Objective Vital Signs: Vital Signs Temperature 98.1 F 12/13/17 08:03 Pulse Rate 82 12/13/17 08:03 Respiratory Rate 16 12/13/17 08:03 Blood Pressure 108/60 12/13/17 08:03 O2 Sat by Pulse Oximetry (%) 100 12/13/17 08:00 Constitutional: Yes: No Distress, Calm Neck: Yes: Supple Cardiovascular: Yes: Regular Rate and Rhythm Respiratory: Yes: Regular, Diminished Gastrointestinal: Yes: Normal Bowel Sounds, Soft, Abdomen, Obese Edema: No Labs: CBC, BMP 12/13/17 05:46 INR, PTT INR 1.04 (0.82-1.09) 12/11/17 15:39 - ....Imaging EKG: Report Reviewed (Tele: SR) Problem List - Problems (1) Pre-syncope Code(s): R55 - SYNCOPE AND COLLAPSE (2) DVT prophylaxis Code(s): EYQ5015 - (3) Diabetes mellitus, insulin dependent (IDDM), uncontrolled Code(s): E10.65 - TYPE 1 DIABETES MELLITUS WITH HYPERGLYCEMIA Qualifiers: Diabetes mellitus complication status: without complication Qualified Code( s): E10.65 - Type 1 diabetes mellitus with hyperglycemia (4) HTN (hypertension) Code(s): I10 - ESSENTIAL (PRIMARY) HYPERTENSION Qualifiers: Hypertension type: essential hypertension Qualified Code(s): I10 - Essential (primary) hypertension (5) History of stroke Code(s): Z86.73 - PRSNL HX OF TIA (TIA), AND CEREB INFRC W/O RESID DEFICITS (6) Hypercholesterolemia Code(s): E78.00 - PURE HYPERCHOLESTEROLEMIA, UNSPECIFIED (7) MARILU (obstructive sleep apnea) Code(s): G47.33 - OBSTRUCTIVE SLEEP APNEA (ADULT) (PEDIATRIC) (8) Obesity, Class III, BMI 40-49.9 (morbid obesity) Code(s): E66.01 - MORBID (SEVERE) OBESITY DUE TO EXCESS CALORIES (9) Stroke Code(s): I63.9 - CEREBRAL INFARCTION, UNSPECIFIED Qualifiers: CVA mechanism: unspecified Qualified Code(s): I63.9 - Cerebral infarction, unspecified (10) Tachycardia Code(s): R00.0 - TACHYCARDIA, UNSPECIFIED (11) Syncope Code(s): R55 - SYNCOPE AND COLLAPSE Qualifiers: Syncope type: unspecified Qualified Code(s): R55 - Syncope and collapse Assessment/Plan 1. Recurrent syncope probably neuro-cardiogenic syncope, unclear vaso-depressor vs. cardio-inhibitory, cannot exclude vaso-vagal syncope, history of palpitations with no evidence of sustained arrhythmia 2. Acute exacerbation of COPD, chronic bronchitis 3. Sinus tachycardia, reactionary to above 4. Chest pain syndrome/CAD angina pectoris 5. Diastolic LV dysfunction with class 0-I NYHA classification LV failure, compensated/euvolemic 6. Hypertension 7. Diabetes mellitus 8. Hypercholesterolemia 9. Hypothyroidism 10. Obstructive sleep apnea 11. Anxiety disorder PLAN: 1. Continue Lisinopril 5 qd 2. Continue Bystolic 2.5 qd 3. Continue Lipitor 20 qhs 4. Continue ASA 81 qd 5. Avoid diuretics 6. Bronchodilators, O2 as per the primary team 7. Mobilize and d/c planning
[2017-12-13 16:10] VITALS: BP 115/72; PULSE 95
--- NOTE | 2017-12-13 16:51 | DS ---
Physical Examination Vital Signs: Vital Signs Temperature 98.1 F 12/13/17 16:09 Pulse Rate 95 H 12/13/17 16:09 Respiratory Rate 18 12/13/17 16:09 Blood Pressure 115/72 12/13/17 16:09 O2 Sat by Pulse Oximetry (%) 100 12/13/17 08:00 Constitutional: Yes: No Distress HENT: Yes: Atraumatic Neck: Yes: Supple Cardiovascular: Yes: Regular Rate and Rhythm Respiratory: Yes: CTA Bilaterally Gastrointestinal: Yes: Normal Bowel Sounds Extremities: Yes: WNL Edema: No Peripheral Pulses WNL: Yes Neurological: Yes: Alert, Oriented Labs: CBC, BMP 12/13/17 05:46 Discharge Summary Reason For Visit: PRE-SYNCOPE Current Active Problems Chest pain (Acute) Pre-syncope (Acute) Condition: Stable - Instructions Diet, Activity, Other Instructions: * Please return to the emergency department with any new or worsening symptoms or concerns. Please follow up with your primary care physician within 72 hours. * Please call cardiology office in am for your BP medication management. Referrals: Keo Urias MD [Staff Physician] - Damaris Solis MD [Primary Care Provider] - - Home Medications Comprehensive Discharge Medication List: Ambulatory Orders Fluoxetine HCl [Prozac -] 40 mg PO DAILY 09/15/14 Gabapentin [Neurontin -] 600 mg PO TID 09/15/14 [place]-3 Fatty Acids [[place]-3] 1,000 mg PO BID 09/15/14 Albuterol Sulfate Inhaler - [Ventolin HFA Inhaler -] 1 - 2 inh PO QID 03/15/16 Liraglutide [Victoza -] 1.8 mg SQ DAILY@1200 03/15/17 clonazePAM [Klonopin -] 0.5 mg PO BID PRN 05/12/17 Meclizine HCl [Antivert -] 12.5 mg PO Q6H PRN #20 tablet 06/27/17 Aspirin 81 mg PO DAILY 08/15/17 Levothyroxine [Synthroid -] 50 mcg PO DAILY 08/15/17 Atorvastatin Ca [Lipitor] 20 mg PO HS 09/09/17 Tiotropium [place] [Spiriva] 1 inh PO DAILY 09/09/17 Loratadine [Claritin] 10 mg PO DAILY 09/11/17 Albuterol 2.5/Ipratropium 0.5 [Duoneb -] 1 amp NEB RQID #120 amp 10/31/17 Insulin (Novolog) [Novolog Flexpen -] 0 units SQ BIDAC 11/30/17 Insulin Glargine,Hum.rec.anlog [Lantus Solostar] 50 unit SQ DAILY 11/30/17 Furosemide [Lasix] 20 mg PO DAILY 12/08/17 Lisinopril 5 mg PO DAILY 12/08/17 Cholecalciferol (Vitamin D3) [D3-50] 50,000 unit PO WEEKLY #10 capsule 12/10/17 Docusate Sodium [Colace] 100 mg PO BID #60 capsule 12/10/17 Ferrous Sulfate [Feosol] 325 mg PO BID #60 tablet 12/10/17 Guaifenesin [Robitussin -] 10 ml PO Q6H PRN #120 cup 12/10/17 Topiramate [Topamax -] 200 mg PO BID #60 tablet 12/10/17 Oxycodone HCl/Acetaminophen [Percocet 10-325 mg Tablet] 1 each PO BID PRN Nebivolol [Bystolic -] 2.5 mg PO DAILY #30 tab 12/13/17 pr home
[2017-12-14 09:05] LABS: ALBUMIN 3.3 g/dl (3.4-5.0); ANION GAP 9 (8-16); BILIRUBIN,TOTAL 0.1 mg/dL (0.2-1.0); BLOOD UREA NITROGEN 15 mg/dL (7-18); CALCIUM 8.4 mg/dL (8.5-10.1); CHLORIDE 107 mmol/L (98-107); CO2 23 mmol/L (21-32); GLUCOSE,RANDOM 207 mg/dL (74-106); POTASSIUM 3.8 mmol/L (3.5-5.1); SGOT/AST 9 U/L (15-37); SGPT/ALT 13 U/L (12-78); SODIUM 139 mmol/L (136-145); TOT PROT 6.8 g/dl (6.4-8.2)
[2017-12-14 09:06] LABS: ALK PHOS 77 U/L (45-117); CREATININE 0.9 mg/dL (0.55-1.02)
== END 2017-12-13 19:17 | disposition home or self-care (01) ==
LOC: JER 13:18 → JERBED 20:54 → J4W 12-12 03:46
PROVIDERS: ADMIT Internal Medicine; ATTEND Internal Medicine
PROC: 3E0337Z Introduction of Electrolytic and Water Balance Substance into Peripheral Vein, Percutaneous Approach (ICD-10-PCS; principal; 2017-12-11)
PROC: 3E0F7GC Introduction of Other Therapeutic Substance into Respiratory Tract, Via Natural or Artificial Opening (ICD-10-PCS; 2017-12-11)
PROC: 3E013VG Introduction of Insulin into Subcutaneous Tissue, Percutaneous Approach (ICD-10-PCS; 2017-12-11)
DX: R55 Syncope and collapse (principal); R07.89 Other chest pain; E11.22 Type 2 diabetes mellitus with diabetic chronic kidney disease; I12.9 Hypertensive chronic kidney disease with stage 1 through stage 4 chronic kidney disease, or unspecified chronic kidney disease; N18.3 Chronic kidney disease, stage 3 (moderate); Z79.4 Long term (current) use of insulin; E03.9 Hypothyroidism, unspecified; E78.5 Hyperlipidemia, unspecified; J44.1 Chronic obstructive pulmonary disease with (acute) exacerbation; F41.9 Anxiety disorder, unspecified; F31.9 Bipolar disorder, unspecified; I50.30 Unspecified diastolic (congestive) heart failure; G40.909 Epilepsy, unspecified, not intractable, without status epilepticus; G47.33 Obstructive sleep apnea (adult) (pediatric); E66.01 Morbid (severe) obesity due to excess calories; Z68.42 Body mass index [BMI] 45.0-49.9, adult; Z88.1 Allergy status to other antibiotic agents; Z79.82 Long term (current) use of aspirin; Z91.041 Radiographic dye allergy status; R00.0 Tachycardia, unspecified; I25.119 Atherosclerotic heart disease of native coronary artery with unspecified angina pectoris
CPT/HCPCS: 36415; 70450-TC; 71045-TC-FY; 80053; 81003; 81015; 82550; 82962; 83880; 84484; 84703; 85025; 85610; 93005; 93010; 94640; 96360; 96372; 99285-25; G0378; J7030; J7620

== ENCOUNTER 2018-03-25 14:07 | Observation (INO) | payer OTHER ==
[2018-03-25 14:24] VITALS: BMI 49.2
--- NOTE | 2018-03-25 15:25 | PDOC ---
History of Present Illness - General Chief Complaint: Chronic pain Stated Complaint: pain Time Seen by Provider: 03/25/18 14:38 History Source: Patient Exam Limitations: No Limitations - History of Present Illness Initial Comments: 03/25/18 15:22 The patient is a 52F with a PMH of chronic pain, seizures, HTN, DM, CVA, and COPD/Asthma who presents to the ER with worsening of her chronic pain, syncope, and SI. The patient states that for 3 days, her chronic pain has worsened. She describes a sharp, stabbing, and burning pain in her extremities, knees, and pelvis without exacerbating or alleviating factors, constant, no radiation, with gradual onset. She also states that yesterday, she was in such excruciating pain that she contemplated killing herself. She denies any active SI or HI and had no plan. She also states that yesterday, because of her pain, she felt an instant sharp pain in her L chest and she syncopized. She denies any SOB and numbness but admits to tingling and intermittent weakness. She denies any active chest pain, SOB, fever, chills, nausea, vomiting. Past History - Past Medical History Allergies/Adverse Reactions: Allergies Allergy/AdvReac Type Severity Reaction Status Date / Time Iodinated Contrast- Oral and Allergy Intermediate Itching Verified 03/25/18 14: 25 IV Dye [Iodinated Contrast Media - IV Dye] azithromycin AdvReac Intermediate Itching Verified 03/25/18 14:25 Home Medications: Ambulatory Orders Fluoxetine HCl [Prozac -] 40 mg PO DAILY 09/15/14 [place]-3 Fatty Acids [[place]-3] 1,000 mg PO BID 09/15/14 Albuterol Sulfate Inhaler - [Ventolin HFA Inhaler -] 1 - 2 inh PO QID 03/15/16 Liraglutide [Victoza -] 1.8 mg SQ DAILY@1200 03/15/17 clonazePAM [Klonopin -] 0.5 mg PO DAILY PRN 05/12/17 Aspirin 81 mg PO DAILY 08/15/17 Levothyroxine [Synthroid -] 50 mcg PO DAILY 08/15/17 Atorvastatin Ca [Lipitor] 20 mg PO HS 09/09/17 Tiotropium [place] [Spiriva] 1 inh PO DAILY 09/09/17 Loratadine [Claritin] 10 mg PO DAILY 09/11/17 Albuterol 2.5/Ipratropium 0.5 [Duoneb -] 1 amp NEB RQID #120 amp 10/31/17 Insulin (Novolog) [Novolog Flexpen -] 0 units SQ BIDAC 11/30/17 Insulin Glargine,Hum.rec.anlog [Lantus Solostar] 50 unit SQ DAILY 11/30/17 Furosemide [Lasix] 20 mg PO DAILY 12/08/17 Lisinopril 5 mg PO DAILY 12/08/17 Docusate Sodium [Colace] 100 mg PO BID #60 capsule 12/10/17 Ferrous Sulfate [Feosol] 325 mg PO BID #60 tablet 12/10/17 Topiramate [Topamax -] 200 mg PO BID #60 tablet 12/10/17 Cholecalciferol (Vitamin D3) [D3-50] 50,000 unit PO WEEKLY #4 capsule 03/09/18 Diclofenac Sodium [Voltaren] 2 gm TP TID PRN #3 tube 03/09/18 Hydrocodone/Acetaminophen [[place] 10-325 Tablet] 1 each PO BID PRN #60 tablet MDD 2 03/09/18 Asthma: Yes Cardiac Disorders: No 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) COPD: Yes CHF: Yes (DIASTOLIC) Dementia: No Diabetes: Yes (IDDM) GI Disorders: No Disorders: No HTN: Yes Hypercholesterolemia: Yes Liver Disease: Yes (hep C - treated) Psychiatric Problems: Yes (depression) Seizures: Yes Thyroid Disease: Yes (hypothyroid) - Surgical History Abdominal Surgery: Yes (UMBILICAL HERNIA) - Immunization History Immunization Up to Date: No - Suicide/Smoking/Psychosocial Hx Smoking History: Never smoked Have you smoked in the past 12 months: No If you are a former smoker, when did you quit?: 2014 Information on smoking cessation initiated: No 'Breaking Loose' booklet given: 09/16/14 Hx Alcohol Use: No Drug/Substance Use Hx: No Substance Use Type: None Hx Substance Use Treatment: No Review of Systems - Review of Systems Able to Perform ROS?: Yes Comments:: 03/25/18 15:45 GENERAL/CONSTITUTIONAL: Positive weakness. No fever or chills. HEAD, EYES, EARS, NOSE AND THROAT: No change in vision. No ear pain or discharge. No sore throat. CARDIOVASCULAR: Positive for resolved CP. No palpitations or lightheadedness. RESPIRATORY: No cough, wheezing, shortness of breath, or hemoptysis. GASTROINTESTINAL: No nausea, vomiting, diarrhea, constipation, or abdominal pain. GENITOURINARY: No dysuria, frequency, hematuria, or change in urination. MUSCULOSKELETAL: No joint or muscle swelling or pain. No neck or back pain. SKIN: No rash or lesions. NEUROLOGIC: Positive for tingling and syncope. No headache, numbness, tingling, or change in strength/sensation. ENDOCRINE: No increased thirst. No abnormal weight change. HEMATOLOGIC/LYMPHATIC: No anemia, easy bleeding, or history of blood clots. ALLERGIC/IMMUNOLOGIC: No hives or skin allergy. Is the patient limited Ukrainian proficient: No *Physical Exam - Vital Signs Last Vital Signs Temp Pulse Resp BP Pulse Ox 98.2 F 100 H 16 140/73 100 03/25/18 14:21 03/25/18 14:21 03/25/18 14:21 03/25/18 14:21 03/25/18 14:21 - Physical Exam Comments: 03/25/18 15:46 GENERAL: Well developed, well nourished. Awake and alert. In mild distress. HEENT: Normocephalic, atraumatic. Hearing grossly normal. Moist mucous membranes. PERRLA, EOMI. No conjunctival pallor. Sclera are non-icteric. NECK: Supple. Full ROM. No JVD. CARDIOVASCULAR: Regular rate and rhythm. No murmurs, rubs, or gallops. PULMONARY: No evidence of respiratory distress. Lungs clear to auscultation bilaterally. No wheezing, rales or rhonchi. ABDOMINAL: Soft. Non-tender. Non-distended. No rebound or guarding. GENITOURINARY: No CVA tenderness bilaterally. MUSCULOSKELETAL: TTP over entire LE b/l. Normal range of motion at all joints. No bony deformities or tenderness. EXTREMITIES: No cyanosis. No clubbing. No edema. Mild R calf swelling. SKIN: Warm and dry. Normal capillary refill. No rashes. No jaundice. NEUROLOGICAL: Alert, awake, appropriate. Cranial nerves grossly 2-12 intact. Normal speech. Gait is normal without ataxia. PSYCHIATRIC: Cooperative. Good eye contact. Appropriate mood and affect. ED Treatment Course - LABORATORY CBC & Chemistry Diagram: 03/25/18 16:30 03/25/18 16:30 - RADIOLOGY Radiology Studies Ordered: Category Date Time Status HEAD CT WITHOUT CONTRAST [CT] Stat CT Scan 03/25/18 15:17 Ordered CHEST PA & LAT [RAD] Stat Radiology 03/25/18 15:19 Ordered DUPLEX VASCUL US-1 LEG [US] Stat Ultrasound 03/25/18 15:21 Ordered Medical Decision Making - Medical Decision Making 03/25/18 15:47 The patient is a 52F with a PMH of chronic pain, seizures, HTN, DM who presents to the ER with worsening pain, syncope, and SI. Will order labwork to r/o occult causes of syncope. Dr. Laboy, psych, asks to work up the patient and inform him. Will treat worsening pain w/ IV tylenol and reassess. Pending labs and imaging. 03/25/18 18:10 Labs WNL including troponin. I have endorsed the pt to [facility] for admission. *DC/Admit/Observation/Transfer Diagnosis at time of Disposition: Syncope Qualifiers: Syncope type: unspecified Qualified Code(s): R55 - Syncope and collapse Chest pain Qualifiers: Chest pain type: other chest pain Qualified Code(s): R07.89 - Other chest pain ; R07.8 - Other chest pain - Discharge Dispostion Condition at time of disposition: Guarded Decision to Admit order: Yes - Referrals Referrals: Damaris Solis MD [Primary Care Provider] - - Patient Instructions - Post Discharge Activity
--- NOTE | 2018-03-25 15:31 | PDOC ---
Attending Attestation - Resident Resident Name: Keo Mustafa - ED Attending Attestation I have performed the following: I have examined & evaluated the patient, The case was reviewed & discussed with the resident, I agree w/resident's findings & plan, Exceptions are as noted - Physicial Exam PE: 03/25/18 15:26 awake alert emotionally distressed, tearful at times. lungs clear bilaterally, heart rrr no mrg. abd soft obese, nt. ext wwp. 2 + symmetric pulses. no calf tenderness or edema. nuero 5/5 right upper and lower ext. 4+ LUE, 4+ llext. sensation intact. speech clear. psych, : pt is labile, tearful, positive SI, no ah no hi. - Medical Decision Making 03/25/18 15:28 differential: mi, dysrhtymia, arthritis, elctrolyte abnormallity worsening neuropathy, djd hips. traumatic injury from fall/ syncope. seizure vs. syncope. plan ct head. cxr ekg trop labs. due to pt risk factors from prior suicide attempts and h/o self cutting, will request psychiatric evaluation. pt also will require observation on telemetry due to multiple cardiac risk factors for r /o dysrhtymia and acs. family h/o acs, uncle in 50's and mother in 50's. 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 She reports her leg pain has been going on for several years, but has been worse over the last 3 days. She describes the pain as bilateral hip and leg pain, which is exacerbated with walking. The patient reports she used to see a pain management physician who prescribed her oxycodone twice daily, but she notes it does not control her pain anymore. She also reports taking Gabapentin for her diabetic neuropathy, but denies relief to her pain. The patient states yesterday her pain became so severe that she was feeling suicidal and that she had thoughts of wanting to cut herself. She reports a history of self injury and cutting her arms in which she was admitted into a psychiatric hospital 1 year ago. The patient also reports an episode of acute chest pain while she was walking yesterday and subsequently had positive LOC. The patient denies bowel or bladder incontinence at the time. <Abran Jaimes - Last Filed: 03/25/18 15:47> Attestations - Attestations Documentation prepared by Abran Jaimes, acting as anesthesiology medical doctor for Luz Sims MD. <Abran Jaimes - Last Filed: 03/25/18 15:47>
[2018-03-25] MEDS ORDERED: ACETAMINOPHEN 1000 MG/100 ML VIAL (NON FORMULARY) IVPB ONE (15:49)
[2018-03-25 16:39] LABS: EOS % 5.5 % (0-4.5); HEMATOCRIT 36.7 % (32.4-45.2); HEMOGLOBIN 11.9 GM/dL (10.7-15.3); LYMPH % 24.2 % (8-40); MCH 25.5 pg (25.7-33.7); MCHC 32.5 g/dl (32.0-36.0); MEAN CELL VOLUME 78.6 fl (80-96); MEAN PLT VOLUME 9.5 fl (7.5-11.1); NEUT % 45.3 % (42.8-82.8); PLATELET COUNT 205 K/MM3 (134-434); RBC 4.67 M/mm3 (3.60-5.2); RDW 15.7 % (11.6-15.6); WHITE BLOOD COUNT 7.2 K/mm3 (4.0-10.0)
[2018-03-25 16:47] LABS: URINE APPEARANCE CLEAR; URINE BILIRUBIN NEGATIVE (<2.0 mg/dL); URINE COLOR STRAW; URINE GLUCOSE (UA) 3+ (NEGATIVE); URINE KETONE NEGATIVE (NEGATIVE); URINE LEUK ESTERASE NEGATIVE (NEGATIVE); URINE NITRITE NEGATIVE (NEGATIVE); URINE PROTEIN NEGATIVE (NEGATIVE); URINE UROBILINOGEN NEGATIVE mg/dL (0.2-1.0)
[2018-03-25 17:03] LABS: ALBUMIN 3.2 g/dl (3.4-5.0); ALK PHOS 78 U/L (45-117); ANION GAP 10 MMOL/L (8-16); BILIRUBIN,TOTAL 0.1 mg/dL (0.2-1.0); BLOOD UREA NITROGEN 13 mg/dL (7-18); CALCIUM 8.4 mg/dL (8.5-10.1); CHLORIDE 105 mmol/L (98-107); CO2 25 mmol/L (21-32); CREATININE 1.4 mg/dL (0.55-1.02); SGPT/ALT 15 U/L (12-78); SODIUM 140 mmol/L (136-145); TOT PROT 6.9 g/dl (6.4-8.2)
[2018-03-25 17:12] LABS: COCAINE, UR NEGATIVE ng/ml (CUTOFF=300); METHADONE, UR NEGATIVE ng/ml (CUTOFF=300); OPIATES, URI NEGATIVE ng/ml (CUTOFF=300); PHENCYCLIDINE,URINE NEGATIVE ng/ml (CUTOFF=25); URINE AMPHETAMINES NEGATIVE ng/ml (CUTOFF=500); URINE BARBITURATES NEGATIVE ng/ml (CUTOFF=200); URINE BENZODIAZEPINES NEGATIVE ng/ml (CUTOFF=200)
[2018-03-25 17:13] LABS: GLUCOSE,RANDOM 423 mg/dL (74-106); POTASSIUM 4.4 mmol/L (3.5-5.1); SGOT/AST 15 U/L (15-37)
[2018-03-25 17:28] LABS: PLATELET ESTIMATE ADEQUATE
[2018-03-25 17:29] LABS: ANISOCYTOSIS 1+; MACROCYTOSIS 1+
[2018-03-25] MEDS ORDERED: INSULIN REGULAR HUMAN 100 UNITS/ML *VIAL IVPUSH ONE (17:30)
[2018-03-25] MEDS ORDERED: SODIUM CHLORIDE 0.9% 1000 ML INFUS.BAG IV ONE (17:30)
[2018-03-25] MEDS ORDERED: INSULIN REGULAR HUMAN 100 UNITS/ML *VIAL ONE (18:20)
[2018-03-25] MEDS ORDERED: ACETAMINOPHEN INJECTION 100 ML IVPB ONE (18:22)
--- NOTE | 2018-03-25 18:57 | HP ---
CHIEF COMPLAINT: chest pain and bilateral lower extremity weakness PCP: Damaris Solis NP pain management: Dr. Gray HISTORY OF PRESENT ILLNESS: Patient is a 52 year old female with a significant past medical history of diabetes mellitus, CVA 2015 with left sided weakness, seizure disorder, hypertension, hyperlipidemia, severe anxiety/depression, sleep apnea, asthma and COPD. She presents to the ED today for c/o of chest pain that radiates to her left arm and bilateral leg and hip pain with increased weakness with ambulation. Patient states that the chest pain began yesterday and reports that while she was ambulating, she had a LOC loss that she reports lasted a few minutes and witnessed by her SALES AND MARKETING MANAGER. Patient has chronic lower extremity bilateral weakness but in the last 3 days the pain became so severe that it hindered her ability to ambulate. Patient is currently seeing a set painter who prescribed Vicodin, but reports that it is becoming ineffective. She is also on gapabentin which she states is not helping. The patient states yesterday her leg pain became so severe that she was feeling suicidal and had thoughts of wanting to cut herself. She reports a history of self mutilation and was admitted to a psyche hospital one year ago. She now follows a psyche physician outpatient. She is currently on a 1:1 for suicide ideation. She further reports that she was at [facility] in November 2017 for COPD exacerbation and was sent to [facility] post after hospitalization for pulmonary rehab. She is now on cpap. ER course was notable for: (1) suicide ideation (2) creat 1.4 (3) negative trops (4) glucose 423 (5) chest pain Social History: Smoking: denies Alcohol:denies Drugs:denies Family History: Allergies Iodinated Contrast- Oral and IV Dye [Iodinated Contrast Media - IV Dye] Allergy (Intermediate, Verified 03/25/18 14:25) Itching azithromycin Adverse Reaction (Intermediate, Verified 03/25/18 14:25) Itching 10/26/17 SUSPECTED ADR TO ZITHROMAX . RX: MILD: ITCHING,NAUSEA. HOME MEDICATIONS: Home Medications Medication Instructions Recorded Fluoxetine HCl [Prozac -] 40 mg PO DAILY 09/15/14 [place]-3 Fatty Acids [[place]-3] 1,000 mg PO BID 09/15/14 Albuterol Sulfate Inhaler - 1 - 2 inh PO QID 03/15/16 [Ventolin HFA Inhaler -] Liraglutide [Victoza -] 1.8 mg SQ DAILY@1200 03/15/17 clonazePAM [Klonopin -] 0.5 mg PO DAILY PRN 05/12/17 Aspirin 81 mg PO DAILY 08/15/17 Levothyroxine [Synthroid -] 50 mcg PO DAILY 08/15/17 Atorvastatin Ca [Lipitor] 20 mg PO HS 09/09/17 Tiotropium [place] [Spiriva] 1 inh PO DAILY 09/09/17 Loratadine [Claritin] 10 mg PO DAILY 09/11/17 Albuterol 2.5/Ipratropium 0.5 1 amp NEB RQID #120 amp 10/31/17 [Duoneb -] Insulin (Novolog) [Novolog Flexpen 0 units SQ BIDAC 11/30/17 -] Insulin Glargine,Hum.rec.anlog 50 unit SQ DAILY 11/30/17 [Lantus Solostar] Furosemide [Lasix] 20 mg PO DAILY 12/08/17 Lisinopril 5 mg PO DAILY 12/08/17 Docusate Sodium [Colace] 100 mg PO BID #60 capsule 12/10/17 Ferrous Sulfate [Feosol] 325 mg PO BID #60 tablet 12/10/17 Topiramate [Topamax -] 200 mg PO BID #60 tablet 12/10/17 Cholecalciferol (Vitamin D3) 50,000 unit PO WEEKLY #4 capsule 03/09/18 [D3-50] Diclofenac Sodium [Voltaren] 2 gm TP TID PRN #3 tube 03/09/18 Hydrocodone/Acetaminophen [[place] 1 each PO BID PRN #60 tablet MDD 2 03/09/18 10-325 Tablet] PHYSICAL EXAMINATION Vital Signs - 24 hr 03/25/18 14:21 Temperature 98.2 F Pulse Rate 100 H Respiratory 16 Rate Blood Pressure 140/73 O2 Sat by Pulse 100 Oximetry (%) GENERAL: Awake, alert, and fully oriented, in no acute distress. HEAD: Normal with no signs of trauma. EYES: Pupils equal, round and reactive to light, extraocular movements intact, sclera anicteric, conjunctiva clear. No lid lag. EARS, NOSE, THROAT: Ears normal, nares patent, oropharynx clear without exudates. Moist mucous membranes. NECK: Normal range of motion, supple without lymphadenopathy, JVD, or masses. LUNGS: Breath sounds equal, lungs clear, no wheezing HEART: RRR ABDOMEN: obese abdomen MUSCULOSKELETAL: Normal range of motion at all joints. No bony deformities or tenderness. No CVA tenderness. UPPER EXTREMITIES: No peripheral edema. LOWER EXTREMITIES: trace edema bilaterally NEUROLOGICAL: Normal speech. Normal gait. PSYCHIATRIC: Cooperative. Good eye contact. Appropriate mood and affect. SKIN: Warm, dry, normal turgor, no rashes or lesions noted, normal capillary refill. Laboratory Results - last 24 hr 03/25/18 03/25/18 03/25/18 16:30 16:30 16:30 WBC 7.2 RBC 4.67 Hgb 11.9 Hct 36.7 MCV 78.6 L MCH 25.5 L MCHC 32.5 RDW 15.7 H Plt Count 205 D MPV 9.5 Absolute Neuts (auto) 3.2 Neutrophils % 45.3 D Neutrophils % (Manual) 54.0 Lymphocytes % 24.2 Lymphocytes % (Manual) 27.0 Monocytes % 25.0 H D Monocytes % (Manual) 15 H Eosinophils % 5.5 H Eosinophils % (Manual) 4.0 Basophils % 0.0 Nucleated RBC % 0 Platelet Estimate Adequate Platelet Comment No clumping noted Anisocytosis 1+ Macrocytosis 1+ Sodium 140 Potassium 4.4 Chloride 105 Carbon Dioxide 25 Anion Gap 10 BUN 13 Creatinine 1.4 H Creat Clearance w eGFR 39.80 Random Glucose 423 H* Calcium 8.4 L Total Bilirubin 0.1 L AST 15 ALT 15 Alkaline Phosphatase 78 Creatine Kinase Troponin I Total Protein 6.9 Albumin 3.2 L TSH 1.91 Serum , Qual Urine Color Urine Appearance Urine pH Ur Specific [place] Urine Protein Urine Glucose (UA) Urine Ketones Urine Blood Urine Nitrite Urine Bilirubin Urine Urobilinogen Ur Leukocyte Esterase Salicylates Opiates Screen Methadone Screen Barbiturate Screen Phencyclidine Screen Ur Amphetamines Screen MDMA (Ecstasy) Screen Benzodiazepines Screen Cocaine Screen U Marijuana (THC) Screen 03/25/18 03/25/18 03/25/18 16:30 16:30 16:30 WBC RBC Hgb Hct MCV MCH MCHC RDW Plt Count MPV Absolute Neuts (auto) Neutrophils % Neutrophils % (Manual) Lymphocytes % Lymphocytes % (Manual) Monocytes % Monocytes % (Manual) Eosinophils % Eosinophils % (Manual) Basophils % Nucleated RBC % Platelet Estimate Platelet Comment Anisocytosis Macrocytosis Sodium Potassium Chloride Carbon Dioxide Anion Gap BUN Creatinine Creat Clearance w eGFR Random Glucose Calcium Total Bilirubin AST ALT Alkaline Phosphatase Creatine Kinase 83 Troponin I < 0.02 Total Protein Albumin TSH Serum , Qual Negative Urine Color Urine Appearance Urine pH Ur Specific [place] Urine Protein Urine Glucose (UA) Urine Ketones Urine Blood Urine Nitrite Urine Bilirubin Urine Urobilinogen Ur Leukocyte Esterase Salicylates < 4.0 Opiates Screen Methadone Screen Barbiturate Screen Phencyclidine Screen Ur Amphetamines Screen MDMA (Ecstasy) Screen Benzodiazepines Screen Cocaine Screen U Marijuana (THC) Screen 03/25/18 03/25/18 16:35 16:35 WBC RBC Hgb Hct MCV MCH MCHC RDW Plt Count MPV Absolute Neuts (auto) Neutrophils % Neutrophils % (Manual) Lymphocytes % Lymphocytes % (Manual) Monocytes % Monocytes % (Manual) Eosinophils % Eosinophils % (Manual) Basophils % Nucleated RBC % Platelet Estimate Platelet Comment Anisocytosis Macrocytosis Sodium Potassium Chloride Carbon Dioxide Anion Gap BUN Creatinine Creat Clearance w eGFR Random Glucose Calcium Total Bilirubin AST ALT Alkaline Phosphatase Creatine Kinase Troponin I Total Protein Albumin TSH Serum , Qual Urine Color Straw Urine Appearance Clear Urine pH 6.0 Ur Specific [place] 1.013 Urine Protein Negative Urine Glucose (UA) 3+ H Urine Ketones Negative Urine Blood Negative Urine Nitrite Negative Urine Bilirubin Negative Urine Urobilinogen Negative Ur Leukocyte Esterase Negative Salicylates Opiates Screen Negative Methadone Screen Negative Barbiturate Screen Negative Phencyclidine Screen Negative Ur Amphetamines Screen Negative MDMA (Ecstasy) Screen Negative Benzodiazepines Screen Negative Cocaine Screen Negative U Marijuana (THC) Screen Negative ASSESSMENT/PLAN: Patient is a 52 year old female with a significant past medical history of diabetes mellitus, CVA 2014 with left sided weakness, seizure disorder, hypertension, hyperlipidemia, severe anxiety/depression, sleep apnea, asthma and COPD. She presents to the ED today for c/o of chest pain that radiates to her left arm and bilateral leg and hip pain with increased weakness with ambulation. Card: Chest pain: rule out ACS. Trend trops and observation on telemetry. Multiple risk factors: htn, cva, dm, sleep apnea along with family history. Echo 09/17 shows ef 60%, right, left vent normal, left systolic fx normal. Consider cardiology consult if chest pain persists. Hypertension: Lisinopril held for ALEJANDRO. monitor BP Hld: On Lipitor, lipid panel in a.m. Psyche: Suicide ideation: 1:1 for safety. Psyche evaluation. Pulm: COPD, not in exacerbation. Tolerating room air. cpap at night. On broncodilators, allbuterol prn. CXR unremarkable Monitor on tele Sleep apnea: on cpap @ hs Psyche: Anxiety, chronic Continue home meds Endocrine Diabetes Mellitus: Elevated BGM on admission. Novolog and Levemir BID. Diabetic diet Vascular: Bilateral leg weakness with history of falls. Continue fall precautions. head CT pending, no trauma sustained. On Neurontin TID home dose. Physical therapy to evaluate. F.E.N. Fluids: po adequate Electrolytes: monitor Nutrition: diabetic diet Prohy: DVT: ambulation, SCDs Gi: deferred full code Visit type - Emergency Visit Emergency Visit: Yes ED Registration Date: 03/25/18 Care time: The patient presented to the Emergency Department on the above date and was hospitalized for further evaluation of their emergent condition. - New Patient This patient is new to me today: Yes Date on this admission: 03/25/18 - Critical Care Critical Care patient: No Hospitalist Screening - Colonoscopy Questionnaire Colonoscopy Questionnaire: Colonoscopy Questionnaire - Patient: 50 - 75 years old and never had a screening colonoscopy: Unknown History of colon or rectal polyps, or CA: Unknown History of IBD, Crohn's disease or UC: Unknown History of abdominal radiation therapy as a child: Unknown - Relative: 1 with colon or rectal CA, or polyps at age 60 or younger: Unknown Colon or rectal CA diagnosed at age 45 or younger: Unknown Multiple relatives with colon or rectal CA: Unknown - Outcome: Screening Result: Negative Screen
[2018-03-25] MEDS ORDERED: ALBUTEROL SO4 2.5/IPRATROPIUM 0.5 INH SOL 3 ML VIAL.NEB. NEB PRN (19:05)
[2018-03-25] MEDS ORDERED: clonazePAM 0.5 MG TABLET PO PRN (19:09)
[2018-03-25] MEDS ORDERED: SODIUM CHLORIDE 1,000 ML IV SCH (19:30)
[2018-03-25] MEDS ORDERED: INSULIN SLIDING SCALE (NOVOLOG) 1 VIAL SQ SCH (22:00)
[2018-03-25] MEDS ORDERED: ATORVASTATIN CA 40 MG TABLET (FP) PO SCH (22:00)
[2018-03-25] MEDS ORDERED: INSULIN (NOVOLOG) ASPART 100 UNITS/ML 10ML VIAL ONE (23:34)
[2018-03-25] MEDS: DOCUSATE SODIUM 100 MG CAPSULE (FP) PO SCH (23:40)
[2018-03-25] MEDS: oxyCODONE HCL 5 MG TABLET PO PRN (23:40)
[2018-03-25] MEDS: INSULIN (LEVEMIR) 100 UNITS/ML UNITS SQ SCH (23:42)
[2018-03-25] MEDS: INSULIN SLIDING SCALE (NOVOLOG) 1 VIAL SQ SCH (23:43)
[2018-03-25] MEDS: TOPIRAMATE 100 MG TABLET PO SCH (23:44)
[2018-03-25] MEDS: HEPARIN NA (PORCINE) 5,000 UNITS/ML 1ML VIAL SQ SCH (23:47)
[2018-03-25] MEDS: FLUTICASONE/SALMETEROL 100 MCG/50 MCG DISKUS IH SCH (23:48)
[2018-03-25] MEDS: GABAPENTIN 300 MG CAPSULE (FP) PO SCH (23:52)
[2018-03-26] MEDS: GABAPENTIN 300 MG CAPSULE (FP) PO SCH ×2 (06:27→14:02)
[2018-03-26] MEDS: HEPARIN NA (PORCINE) 5,000 UNITS/ML 1ML VIAL SQ SCH ×2 (06:27→14:02)
[2018-03-26] MEDS: INSULIN (LEVEMIR) 100 UNITS/ML UNITS SQ SCH (06:27)
[2018-03-26] MEDS: INSULIN SLIDING SCALE (NOVOLOG) 1 VIAL SQ SCH ×2 (06:30→12:06)
[2018-03-26] MEDS ORDERED: LEVOTHYROXINE NA 50 MCG TABLET (FP) PO SCH (07:00)
[2018-03-26 07:57] LABS: BASO % 0.7 % (0-2.0); HEMATOCRIT 35.8 % (32.4-45.2); HEMOGLOBIN 11.4 GM/dL (10.7-15.3); LYMPH % 33.2 % (8-40); MCH 25.2 pg (25.7-33.7); MEAN CELL VOLUME 78.7 fl (80-96); MEAN PLT VOLUME 9.8 fl (7.5-11.1); MONO % 8.4 % (3.8-10.2); NEUT % 53.7 % (42.8-82.8); PLATELET COUNT 181 K/MM3 (134-434); RBC 4.54 M/mm3 (3.60-5.2); RDW 15.7 % (11.6-15.6); WHITE BLOOD COUNT 6.3 K/mm3 (4.0-10.0)
[2018-03-26 08:13] LABS: ALBUMIN 3.2 g/dl (3.4-5.0); ANION GAP 10 MMOL/L (8-16); CHLORIDE 108 mmol/L (98-107); CO2 24 mmol/L (21-32); MAGNESIUM 1.8 mg/dL (1.8-2.4); POTASSIUM 4.2 mmol/L (3.5-5.1); SODIUM 142 mmol/L (136-145)
[2018-03-26 08:20] LABS: ALK PHOS 70 U/L (45-117); BILIRUBIN,TOTAL 0.2 mg/dL (0.2-1.0); BLOOD UREA NITROGEN 13 mg/dL (7-18); CALCIUM 8.3 mg/dL (8.5-10.1); CHOLESTEROL 98 mg/dL (50-200); CREATININE 0.8 mg/dL (0.55-1.02); GLUCOSE,RANDOM 256 mg/dL (74-106); HDL CHOLESTEROL 25 mg/dL (40-60); SGOT/AST 8 U/L (15-37); SGPT/ALT 14 U/L (12-78); TOT PROT 6.5 g/dl (6.4-8.2); TRIGLYCERIDES 104 mg/dL (35-160)
[2018-03-26] MEDS ORDERED: PT OWN MED DRAWER 7, Y5N ONE (09:20)
[2018-03-26] MEDS: DOCUSATE SODIUM 100 MG CAPSULE (FP) PO SCH (09:26)
[2018-03-26] MEDS: TOPIRAMATE 100 MG TABLET PO SCH (09:26)
[2018-03-26] MEDS: FLUTICASONE/SALMETEROL 100 MCG/50 MCG DISKUS IH SCH (09:27)
[2018-03-26] MEDS: oxyCODONE HCL 5 MG TABLET PO PRN (09:29)
[2018-03-26] MEDS ORDERED: LISINOPRIL 5 MG TABLET (FP) PO SCH (10:00)
[2018-03-26] MEDS ORDERED: TIOTROPIUM BROMIDE 2.5 MCG (SPIRIVA) RESPIMAT INHALER IH SCH (10:00)
[2018-03-26] MEDS ORDERED: FUROSEMIDE 20 MG TABLET (FP) PO SCH (10:00)
[2018-03-26] MEDS ORDERED: ASPIRIN 81 MG CHEWABLE TABLETS PO SCH (10:00)
[2018-03-26] MEDS ORDERED: NEBIVOLOL 2.5 MG TABLET (FP) PO SCH (10:00)
[2018-03-26] MEDS ORDERED: TOPIRAMATE 100 MG TABLET PO SCH (10:00)
[2018-03-26] MEDS ORDERED: FLUoxetine HCL 20 MG CAPSULE (FP) PO SCH (10:00)
[2018-03-26] MEDS ORDERED: PHENYTOIN NA EXTENDED 100 MG CAPSULE (FP) PO SCH (10:00)
--- NOTE | 2018-03-26 10:24 | EKG ---
Test Reason : Blood Pressure : / mmHG Vent. Rate : 098 BPM Atrial Rate : 098 BPM P-R Int : 152 ms QRS Dur : 086 ms QT Int : 366 ms P-R-T Axes : 048 -37 027 degrees QTc Int : 467 ms NORMAL SINUS RHYTHM LEFT AXIS DEVIATION MINIMAL VOLTAGE CRITERIA FOR LVH, MAY BE NORMAL VARIANT ABNORMAL ECG WHEN COMPARED WITH ECG OF 11-DEC-2017 13:43, NO SIGNIFICANT CHANGE WAS FOUND Confirmed by PARVEEN FRIEDMAN MD ([id number]) on 03/26/2018 10:23:59 AM Referred By: Confirmed By:PARVEEN FRIEDMAN MD
[2018-03-26] MEDS ORDERED: INSULIN (NOVOLOG) ASPART 100 UNITS/ML 10ML VIAL ONE (12:03)
--- NOTE | 2018-03-26 14:04 | CON.PSY ---
Psychiatry Consult Chief Complaint: I said to the nurse i felt suicidal few days ago> I never had any plans to kill myself. Pain was too much. Symptoms: reports: Anxiety - Previous Psychiatric Treatment Outpatient: Less than 6 mos ago Inpatient: One prior admission - Previous Substance Abuse Treatment Outpatient: None Inpatient: None - Reason for Previous Treatment Reason for Previous Treatment: Major Depression - Current Medications Current Medications: Active Medications Albuterol/Ipratropium (Duoneb -) 1 amp NEB Q6H PRN PRN Reason: SHORTNESS OF BREATH Last Admin: 03/25/18 23:23 Dose: 1 amp Aspirin (Asa -) 81 mg PO DAILY [facility] Last Admin: 03/26/18 09:26 Dose: 81 mg Atorvastatin Calcium (Lipitor -) 40 mg PO HS [facility] Last Admin: 03/25/18 23:39 Dose: 40 mg Clonazepam (Klonopin -) 0.5 mg PO Q12H PRN PRN Reason: ANXIETY Last Admin: 03/25/18 23:42 Dose: 0.5 mg Docusate Sodium (Colace -) 100 mg PO BID [facility] Last Admin: 03/26/18 09:26 Dose: 100 mg Fluoxetine HCl (Prozac -) 40 mg PO DAILY [facility] Last Admin: 03/26/18 09:26 Dose: 40 mg Furosemide (Lasix -) 20 mg PO DAILY [facility] Last Admin: 03/26/18 09:26 Dose: 20 mg Gabapentin (Neurontin -) 300 mg PO TID [facility] Last Admin: 03/26/18 06:27 Dose: 300 mg Heparin Sodium (Porcine) (Heparin -) 5,000 unit SQ TID [facility] Last Admin: 03/26/18 06:27 Dose: Not Given Sodium Chloride (Normal Saline -) 1,000 mls @ 50 mls/hr IV ASDIR [facility] Stop: 03/26/18 19:21 Last Admin: 03/25/18 23:15 Dose: 50 mls/hr Insulin Aspart (Novolog Vial Sliding Scale -) 1 vial SQ ACHS [facility]; Protocol Last Admin: 03/26/18 12:06 Dose: 10 units Insulin Detemir (Levemir Vial) 20 units SQ BID@0700,2200 [facility] Last Admin: 03/26/18 06:27 Dose: 20 units Levothyroxine Sodium (Synthroid -) 50 mcg PO ACBK [facility] Last Admin: 03/26/18 06:26 Dose: 50 mcg Nebivolol (Bystolic -) 2.5 mg PO DAILY [facility] Last Admin: 03/26/18 11:56 Dose: 2.5 mg Oxycodone HCl (Roxicodone -) 10 mg PO Q6H PRN PRN Reason: PAIN LEVEL 7 - 10 Last Admin: 03/26/18 09:29 Dose: 10 mg Fluticasone/Salmeterol (Advair 100mcg/50mcg -) 1 puff IH BID [facility] Last Admin: 03/26/18 09:27 Dose: 1 puff Tiotropium [place] (Spiriva Respimat) 2 puff IH DAILY [facility] Last Admin: 03/26/18 09:27 Dose: 2 puff Topiramate (Topamax -) 200 mg PO BID [facility] Last Admin: 03/26/18 09:26 Dose: 200 mg - Allergies Allergies: Allergies Allergy/AdvReac Type Severity Reaction Status Date / Time Iodinated Contrast- Oral and Allergy Intermediate Itching Verified 03/25/18 14: 25 IV Dye [Iodinated Contrast Media - IV Dye] azithromycin AdvReac Intermediate Itching Verified 03/25/18 14:25 - Current Living Status Usual Living Arrangement: With Significant Other - Current Mental Status Evaluation Appearance: Well Groomed Attitude: Cooperative - Affect Affect: Constrictive Appropriateness: Appropriate to Content - Mood Mood: Anxious - Speech/Language Expressive: Coherent - Psychomotor Activity Psychomotor Activity: Hyperactive - Thought Process Thought Process: Intact - Thought Content Hallucinations: Absent Delusions: Absent - Self Perception Self Perception: No Impairment - Cognition Attention: Alert Orientation: Time Memory, Immediate Recall: Intact Memory, Short Term: 3/3 Memory, Remote with Promptin/3 - Concentration Serial Sevens Intact: No Simple Calculations Intact: Yes - Abstraction Proverb Interpretation: Intact Judgement: Minimally Impaired - Insight Insight: Intact - Impulse Control Impulse Control: Minimally Impaired - Suicidal Ideation Suicidal Ideation: No Assessment/Plan 1) Patient is not suicidal, will d/c 1:1 @) Continue with Prozac and Klonapin. 3) follow up at [facility] upon Discharge.
[2018-03-26] MEDS ORDERED: oxyCODONE HCL 5 MG TABLET PO PRN (14:35)
[2018-03-26 15:51] VITALS: BP 118/78; PULSE 96; TEMP 98.5
--- NOTE | 2018-03-26 17:12 | DS ---
Physical Exam: SUBJECTIVE: Patient seen and examined. PT states the pain in her bones was so excruciating she felt she was suicidal. She no longer is. OBJECTIVE: Vital Signs Period Temp Pulse Resp BP Sys/Giron Pulse Ox Last 24 Hr 98 F-98.5 F 91-98 18-20 104-131/49-81 96-98 PE Neuro: alert, awake, cn 2-12intact Pulm: CTAB CV: s1 s2 rrr no mrg Abd: obese abd, s nt nd + bs Ext: no le edema ,warm Laboratory Results - last 24 hr 03/25/18 03/25/18 03/25/18 16:30 16:30 16:30 WBC RBC Hgb Hct MCV MCH MCHC RDW Plt Count MPV Absolute Neuts (auto) Neutrophils % Neutrophils % (Manual) 54.0 Lymphocytes % Lymphocytes % (Manual) 27.0 Monocytes % Monocytes % (Manual) 15 H Eosinophils % Eosinophils % (Manual) 4.0 Basophils % Nucleated RBC % Platelet Estimate Adequate Platelet Comment No clumping noted Anisocytosis 1+ Macrocytosis 1+ Sodium 140 Potassium 4.4 Chloride 105 Carbon Dioxide 25 Anion Gap 10 BUN 13 Creatinine 1.4 H Creat Clearance w eGFR 39.80 POC Glucometer Random Glucose 423 H* Hemoglobin A1c % Calcium 8.4 L Magnesium Total Bilirubin 0.1 L AST 15 ALT 15 Alkaline Phosphatase 78 Creatine Kinase Troponin I Total Protein 6.9 Albumin 3.2 L Triglycerides Cholesterol Total LDL Cholesterol HDL Cholesterol TSH 1.91 Salicylates Opiates Screen Methadone Screen Barbiturate Screen Phencyclidine Screen Ur Amphetamines Screen MDMA (Ecstasy) Screen Benzodiazepines Screen Cocaine Screen U Marijuana (THC) Screen 03/25/18 03/25/18 03/25/18 16:30 16:30 16:35 WBC RBC Hgb Hct MCV MCH MCHC RDW Plt Count MPV Absolute Neuts (auto) Neutrophils % Neutrophils % (Manual) Lymphocytes % Lymphocytes % (Manual) Monocytes % Monocytes % (Manual) Eosinophils % Eosinophils % (Manual) Basophils % Nucleated RBC % Platelet Estimate Platelet Comment Anisocytosis Macrocytosis Sodium Potassium Chloride Carbon Dioxide Anion Gap BUN Creatinine Creat Clearance w eGFR POC Glucometer Random Glucose Hemoglobin A1c % Calcium Magnesium Total Bilirubin AST ALT Alkaline Phosphatase Creatine Kinase 83 Troponin I < 0.02 Total Protein Albumin Triglycerides Cholesterol Total LDL Cholesterol HDL Cholesterol TSH Salicylates < 4.0 Opiates Screen Negative Methadone Screen Negative Barbiturate Screen Negative Phencyclidine Screen Negative Ur Amphetamines Screen Negative MDMA (Ecstasy) Screen Negative Benzodiazepines Screen Negative Cocaine Screen Negative U Marijuana (THC) Screen Negative 03/25/18 03/25/18 03/26/18 23:15 23:15 01:20 WBC RBC Hgb Hct MCV MCH MCHC RDW Plt Count MPV Absolute Neuts (auto) Neutrophils % Neutrophils % (Manual) Lymphocytes % Lymphocytes % (Manual) Monocytes % Monocytes % (Manual) Eosinophils % Eosinophils % (Manual) Basophils % Nucleated RBC % Platelet Estimate Platelet Comment Anisocytosis Macrocytosis Sodium Potassium Chloride Carbon Dioxide Anion Gap BUN Creatinine Creat Clearance w eGFR POC Glucometer 300 Random Glucose 411 H* Hemoglobin A1c % Calcium Magnesium Total Bilirubin AST ALT Alkaline Phosphatase Creatine Kinase Troponin I < 0.02 Total Protein Albumin Triglycerides Cholesterol Total LDL Cholesterol HDL Cholesterol TSH Salicylates Opiates Screen Methadone Screen Barbiturate Screen Phencyclidine Screen Ur Amphetamines Screen MDMA (Ecstasy) Screen Benzodiazepines Screen Cocaine Screen U Marijuana (THC) Screen 03/26/18 03/26/18 03/26/18 06:00 06:00 06:00 WBC 6.3 RBC 4.54 Hgb 11.4 Hct 35.8 MCV 78.7 L MCH 25.2 L MCHC 32.0 RDW 15.7 H Plt Count 181 MPV 9.8 Absolute Neuts (auto) 3.4 Neutrophils % 53.7 Neutrophils % (Manual) Lymphocytes % 33.2 D Lymphocytes % (Manual) Monocytes % 8.4 Monocytes % (Manual) Eosinophils % 4.0 Eosinophils % (Manual) Basophils % 0.7 D Nucleated RBC % 0 Platelet Estimate Platelet Comment Anisocytosis Macrocytosis Sodium 142 Potassium 4.2 Chloride 108 H Carbon Dioxide 24 Anion Gap 10 BUN 13 Creatinine 0.8 Creat Clearance w eGFR > 60 POC Glucometer Random Glucose 256 H Hemoglobin A1c % 9.6 H Calcium 8.3 L Magnesium 1.8 Total Bilirubin 0.2 AST 8 L ALT 14 Alkaline Phosphatase 70 Creatine Kinase Troponin I Total Protein 6.5 Albumin 3.2 L Triglycerides 104 Cholesterol 98 Total LDL Cholesterol 70 HDL Cholesterol 25 L TSH Salicylates Opiates Screen Methadone Screen Barbiturate Screen Phencyclidine Screen Ur Amphetamines Screen MDMA (Ecstasy) Screen Benzodiazepines Screen Cocaine Screen U Marijuana (THC) Screen 03/26/18 03/26/18 03/26/18 06:00 06:25 11:51 WBC RBC Hgb Hct MCV MCH MCHC RDW Plt Count MPV Absolute Neuts (auto) Neutrophils % Neutrophils % (Manual) Lymphocytes % Lymphocytes % (Manual) Monocytes % Monocytes % (Manual) Eosinophils % Eosinophils % (Manual) Basophils % Nucleated RBC % Platelet Estimate Platelet Comment Anisocytosis Macrocytosis Sodium Potassium Chloride Carbon Dioxide Anion Gap BUN Creatinine Creat Clearance w eGFR POC Glucometer 275 334 Random Glucose Hemoglobin A1c % Calcium Magnesium Total Bilirubin AST ALT Alkaline Phosphatase Creatine Kinase Troponin I < 0.02 Total Protein Albumin Triglycerides Cholesterol Total LDL Cholesterol HDL Cholesterol TSH Salicylates Opiates Screen Methadone Screen Barbiturate Screen Phencyclidine Screen Ur Amphetamines Screen MDMA (Ecstasy) Screen Benzodiazepines Screen Cocaine Screen U Marijuana (THC) Screen HOSPITAL COURSE: Date of Admission:03/25/18 Date of Discharge: 03/26/18 Minutes to complete discharge: 36 Discharge Summary Reason For Visit: SYNCOPE/PAIN OF RIGHT HIP/ CHEST PAIN Hospital Course: Hospital Course: 52 year old female with a significant past medical history of diabetes mellitus , 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 She had chest pain while she was ambulating and a episode of LOC loss that she reports lasted a few minutes and witnessed by her CONVEYOR BELT INSTALLER. Patient has chronic lower extremity bilateral weakness but for 3 days the pain became so severe, it hindered her ability to ambulate. Patient is currently seeing a painter drum who prescribed Vicodin, but reports that it is becoming ineffective. She is also on gapabentin which she states is not helping. The day before ED admission her leg pain became so severe she was feeling suicidal and had thoughts of wanting to cut herself. She reports a history of self mutilation and was admitted to a psyche hospital one year ago. She now follows a psyche physician outpatient. She further reports that she was at [facility] in November 2017 for COPD exacerbation and was sent to [facility] post after hospitalization for pulmonary rehab. She is now on cpap. 1:1 was placed, psych was consulted pt no longer deemed suicidal Cont prozac and klonapin Pain medication changed from [place] to oxycodone with instructions to f/u w pain mgmt doctor Resume home medications as directed Pt aware and agrees to plan Condition: Stable - Instructions Diet, Activity, Other Instructions: Please return to the ED for any new, persistent, or worsening symptoms. Follow up with your PCP in 1 week Take home medications as directed Referrals: Damaris Solis MD [Primary Care Provider] - Disposition: VNS/HOME HEALTH CARE - Home Medications Comprehensive Discharge Medication List: Ambulatory Orders Fluoxetine HCl [Prozac -] 40 mg PO DAILY 09/15/14 [place]-3 Fatty Acids [[place]-3] 1,000 mg PO BID 09/15/14 Albuterol Sulfate Inhaler - [Ventolin HFA Inhaler -] 1 - 2 inh PO QID 03/15/16 Liraglutide [Victoza -] 1.8 mg SQ DAILY@1200 03/15/17 clonazePAM [Klonopin -] 0.5 mg PO DAILY PRN 05/12/17 Aspirin 81 mg PO DAILY 08/15/17 Levothyroxine [Synthroid -] 50 mcg PO DAILY 08/15/17 Atorvastatin Ca [Lipitor] 20 mg PO HS 09/09/17 Tiotropium [place] [Spiriva] 1 inh PO DAILY 09/09/17 Loratadine [Claritin] 10 mg PO DAILY 09/11/17 Albuterol 2.5/Ipratropium 0.5 [Duoneb -] 1 amp NEB RQID #120 amp 10/31/17 Insulin (Novolog) [Novolog Flexpen -] 0 units SQ BIDAC 11/30/17 Insulin Glargine,Hum.rec.anlog [Lantus Solostar] 50 unit SQ DAILY 11/30/17 Furosemide [Lasix] 20 mg PO DAILY 12/08/17 Lisinopril 5 mg PO DAILY 12/08/17 Docusate Sodium [Colace] 100 mg PO BID #60 capsule 12/10/17 Ferrous Sulfate [Feosol] 325 mg PO BID #60 tablet 12/10/17 Topiramate [Topamax -] 200 mg PO BID #60 tablet 12/10/17 Cholecalciferol (Vitamin D3) [D3-50] 50,000 unit PO WEEKLY #4 capsule 03/09/18 Diclofenac Sodium [Voltaren] 2 gm TP TID PRN #3 tube 03/09/18 Oxycodone HCl/Acetaminophen [Percocet 10-325 mg Tablet] 1 each PO BID PRN #20 tablet MDD 2 03/26/18 This patient is new to me today: Yes Date on this admission: 03/26/18 Emergency Visit: Yes ED Registration Date: 03/25/18 Care time: The patient presented to the Emergency Department on the above date and was hospitalized for further evaluation of their emergent condition. Critical Care patient: No - Discharge Referral Referred to [facility] Med P.C.: No
== END 2018-03-26 16:17 | disposition home health service (06) ==
LOC: JER 14:07 → JERBED 18:11 → J4W 22:48
PROVIDERS: ADMIT Internal Medicine; ATTEND Nurse Practitioner Acute Care
PROC: 3E033VG Introduction of Insulin into Peripheral Vein, Percutaneous Approach (ICD-10-PCS; principal; 2018-03-25)
PROC: 3E033NZ Introduction of Analgesics, Hypnotics, Sedatives into Peripheral Vein, Percutaneous Approach (ICD-10-PCS; 2018-03-25)
PROC: 3E033GC Introduction of Other Therapeutic Substance into Peripheral Vein, Percutaneous Approach (ICD-10-PCS; 2018-03-25)
PROC: 3E0337Z Introduction of Electrolytic and Water Balance Substance into Peripheral Vein, Percutaneous Approach (ICD-10-PCS; 2018-03-25)
PROC: 3E0F7GC Introduction of Other Therapeutic Substance into Respiratory Tract, Via Natural or Artificial Opening (ICD-10-PCS; 2018-03-25)
DX: R55 Syncope and collapse (principal); R07.89 Other chest pain; R45.851 Suicidal ideations; I10 Essential (primary) hypertension; I50.30 Unspecified diastolic (congestive) heart failure; E11.9 Type 2 diabetes mellitus without complications; E03.9 Hypothyroidism, unspecified; E78.5 Hyperlipidemia, unspecified; J44.9 Chronic obstructive pulmonary disease, unspecified; J45.909 Unspecified asthma, uncomplicated; G40.909 Epilepsy, unspecified, not intractable, without status epilepticus; G47.30 Sleep apnea, unspecified; M25.50 Pain in unspecified joint; B18.2 Chronic viral hepatitis C; E66.9 Obesity, unspecified; Z68.42 Body mass index [BMI] 45.0-49.9, adult; Z79.82 Long term (current) use of aspirin; Z79.4 Long term (current) use of insulin; Z88.1 Allergy status to other antibiotic agents; Z91.041 Radiographic dye allergy status; I69.354 Hemiplegia and hemiparesis following cerebral infarction affecting left non-dominant side
CPT/HCPCS: 36415; 70450-TC; 71046-TC-FY; 72170-TC-FY; 80053; 80061; 80307; 81003; 82550; 82947; 82962; 83036; 83721; 83735; 84443; 84484; 84703; 85025; 93005; 93010; 93971-TC; 94640; 94660; 96361; 96365; 96374; 96375; 97116-GP; 97161-GP; 99285-25; G0378; J0131; J1644; J7030; J7620

== ENCOUNTER 2018-04-01 18:20 | Emergency (ER) | payer OTHER ==
[2018-04-01 18:25] VITALS: BP 111/72; PULSE 107; TEMP 98.3; BMI 48.4
[2018-04-01 18:50] LABS: BASO % 0.9 % (0-2.0); EOS % 3.3 % (0-4.5); HEMATOCRIT 36.3 % (32.4-45.2); LYMPH % 25.4 % (8-40); MCH 25.6 pg (25.7-33.7); MCHC 33.2 g/dl (32.0-36.0); MEAN CELL VOLUME 77.2 fl (80-96); MEAN PLT VOLUME 9.2 fl (7.5-11.1); MONO % 6.1 % (3.8-10.2); NEUT % 64.3 % (42.8-82.8); PLATELET COUNT 237 K/MM3 (134-434); RBC 4.69 M/mm3 (3.60-5.2); RDW 15.5 % (11.6-15.6); WHITE BLOOD COUNT 8.4 K/mm3 (4.0-10.0)
[2018-04-01 19:01] LABS: INR 1.01 (0.83-1.09); PROTHROMBIN TIME (PATIENT) 11.4 SEC (9.7-13.0)
[2018-04-01 19:13] LABS: ALBUMIN 3.3 g/dl (3.4-5.0); ANION GAP 10 MMOL/L (8-16); BILIRUBIN,TOTAL 0.2 mg/dL (0.2-1.0); BLOOD UREA NITROGEN 11 mg/dL (7-18); CHLORIDE 106 mmol/L (98-107); CO2 24 mmol/L (21-32); CREATININE 0.9 mg/dL (0.55-1.02); GLUCOSE,RANDOM 194 mg/dL (74-106); SGPT/ALT 19 U/L (12-78); SODIUM 140 mmol/L (136-145); TOT PROT 7.3 g/dl (6.4-8.2)
[2018-04-01 19:15] LABS: ALK PHOS 81 U/L (45-117)
[2018-04-01 19:19] LABS: POTASSIUM 4.5 mmol/L (3.5-5.1)
[2018-04-01 19:20] LABS: MAGNESIUM 1.7 mg/dL (1.8-2.4); SGOT/AST 29 U/L (15-37)
--- NOTE | 2018-04-01 19:58 | PDOC ---
History of Present Illness - General Chief Complaint: Syncope/Near Syncope Stated Complaint: SYNCOPE Time Seen by Provider: 04/01/18 18:28 History Source: Patient Exam Limitations: No Limitations - History of Present Illness Initial Comments: 04/01/18 19:56 Patient is a 52F with history of seizures, HTN, DM, CVA, and COPD/Asthma here today complaining of a seizure. Her daughter reports over the phone that the patient was fell to the ground and was shaking all four of her limbs. Denies blood in mouth and urinary incontinence. Daughter endorses post-ictal period of confusion. Seizure lasted a few minutes. Patient endorses lateral neck pain. Denies fevers, chills, nausea, vomiting. Endorses compliance with her topamax. Denies chest pain and shortness of breath. Past History - Past Medical History Allergies/Adverse Reactions: Allergies Allergy/AdvReac Type Severity Reaction Status Date / Time Iodinated Contrast- Oral and Allergy Intermediate Itching Verified 04/01/18 18: 21 IV Dye [Iodinated Contrast Media - IV Dye] azithromycin AdvReac Intermediate Itching Verified 04/01/18 18:21 Home Medications: Ambulatory Orders Fluoxetine HCl [Prozac -] 40 mg PO DAILY 09/15/14 [place]-3 Fatty Acids [[place]-3] 1,000 mg PO BID 09/15/14 Albuterol Sulfate Inhaler - [Ventolin HFA Inhaler -] 1 - 2 inh PO QID 03/15/16 Liraglutide [Victoza -] 1.8 mg SQ DAILY@1200 03/15/17 clonazePAM [Klonopin -] 0.5 mg PO DAILY PRN 05/12/17 Aspirin 81 mg PO DAILY 08/15/17 Levothyroxine [Synthroid -] 50 mcg PO DAILY 08/15/17 Atorvastatin Ca [Lipitor] 20 mg PO HS 09/09/17 Tiotropium [place] [Spiriva] 1 inh PO DAILY 09/09/17 Loratadine [Claritin] 10 mg PO DAILY 09/11/17 Albuterol 2.5/Ipratropium 0.5 [Duoneb -] 1 amp [facility] RQID #120 amp 10/31/17 Insulin (Novolog) [Novolog Flexpen -] 0 units SQ BIDAC 11/30/17 Insulin Glargine,Hum.rec.anlog [Lantus Solostar] 50 unit SQ DAILY 11/30/17 Furosemide [Lasix] 20 mg PO DAILY 12/08/17 Lisinopril 5 mg PO DAILY 12/08/17 Docusate Sodium [Colace] 100 mg PO BID #60 capsule 12/10/17 Ferrous Sulfate [Feosol] 325 mg PO BID #60 tablet 12/10/17 Topiramate [Topamax -] 200 mg PO BID #60 tablet 12/10/17 Cholecalciferol (Vitamin D3) [D3-50] 50,000 unit PO WEEKLY #4 capsule 03/09/18 Diclofenac Sodium [Voltaren] 2 gm TP TID PRN #3 tube 03/09/18 Oxycodone HCl/Acetaminophen [Percocet 10-325 mg Tablet] 1 each PO BID PRN #20 tablet MDD 2 03/26/18 Asthma: Yes Cardiac Disorders: No 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) COPD: Yes CHF: Yes (DIASTOLIC) Dementia: No Diabetes: Yes (IDDM) GI Disorders: No Disorders: No HTN: Yes Hypercholesterolemia: Yes Liver Disease: Yes (hep C - treated) Psychiatric Problems: Yes (depression) Seizures: Yes Thyroid Disease: Yes (hypothyroid) - Surgical History Abdominal Surgery: Yes (UMBILICAL HERNIA) - Immunization History Immunization Up to Date: No - Suicide/Smoking/Psychosocial Hx Smoking History: Never smoked Have you smoked in the past 12 months: No If you are a former smoker, when did you quit?: 2014 Information on smoking cessation initiated: No 'Breaking Loose' booklet given: 09/16/14 Hx Alcohol Use: No Drug/Substance Use Hx: No Substance Use Type: None Hx Substance Use Treatment: No Review of Systems - Review of Systems Comments:: 04/01/18 20:01 GENERAL/CONSTITUTIONAL: No fever or chills. No weakness. HEAD, EYES, EARS, NOSE AND THROAT: No change in vision. No sore throat. CARDIOVASCULAR: No chest pain or shortness of breath RESPIRATORY: No cough, wheezing, or hemoptysis. GASTROINTESTINAL: No nausea, vomiting, diarrhea or constipation. GENITOURINARY: No dysuria, frequency, or change in urination. MUSCULOSKELETAL: No joint or muscle swelling or pain. No neck or back pain. SKIN: No rash NEUROLOGIC: No headache, vertigo, + loss of consciousness ENDOCRINE: No increased thirst. No abnormal weight change HEMATOLOGIC/LYMPHATIC: No anemia, easy bleeding, or history of blood clots. ALLERGIC/IMMUNOLOGIC: No hives or skin allergy. *Physical Exam - Vital Signs Last Vital Signs Temp Pulse Resp BP Pulse Ox 98.3 F 107 H 18 111/72 100 04/01/18 18:22 04/01/18 18:22 04/01/18 18:22 04/01/18 18:22 04/01/18 18:26 - Physical Exam Comments: 04/01/18 20:03 GENERAL: Awake, alert, and fully oriented, in no acute distress HEAD: No signs of trauma, normocephalic, atraumatic EYES: PERRLA, EOMI, sclera anicteric, conjunctiva clear ENT: Auricles normal inspection, hearing grossly normal, nares patent, oropharynx clear without exudates. Moist mucosa NECK: Normal ROM, supple, no lymphadenopathy, JVD, or masses LUNGS: No distress, speaks full sentences, clear to auscultation bilaterally, no midline neck tenderness HEART: Regular rate and rhythm, normal S1 and S2, no murmurs, rubs or gallops, peripheral pulses normal and equal bilaterally. ABDOMEN: Soft, nontender, normoactive bowel sounds. No guarding, no rebound. No masses EXTREMITIES: Normal inspection, Normal range of motion, no edema. No clubbing or cyanosis. NEUROLOGICAL: Cranial nerves II through XII grossly intact. Normal speech, no focal sensorimotor deficits SKIN: Warm, Dry, normal turgor, no rashes or lesions noted. ED Treatment Course - LABORATORY CBC & Chemistry Diagram: 04/01/18 18:41 04/01/18 18:41 - ADDITIONAL ORDERS Additional order review: Laboratory Results 04/01/18 04/01/18 04/01/18 18:41 18:41 18:41 PT with INR 11.40 INR 1.01 Sodium 140 Potassium 4.5 Chloride 106 Carbon Dioxide 24 Anion Gap 10 BUN 11 Creatinine 0.9 Creat Clearance w eGFR > 60 Random Glucose 194 H Calcium 9.0 Magnesium 1.7 L Total Bilirubin 0.2 AST 29 ALT 19 Alkaline Phosphatase 81 D Troponin I < 0.02 Total Protein 7.3 Albumin 3.3 L Serum , Qual Negative 04/01/18 18:41 RBC 4.69 MCV 77.2 L MCHC 33.2 RDW 15.5 MPV 9.2 Neutrophils % 64.3 Lymphocytes % 25.4 D Monocytes % 6.1 Eosinophils % 3.3 Basophils % 0.9 - RADIOLOGY Radiology Studies Ordered: Category Date Time Status HEAD CT WITHOUT CONTRAST [CT] Stat CT Scan 04/01/18 18:41 Ordered CHEST X-RAY PORTABLE* [RAD] Stat Radiology 04/01/18 18:39 Taken Medical Decision Making - Medical Decision Making 04/01/18 20:03 Patient is 52F with history of seizures, HTN, HLD, CVA here today with seizure. Vitals notable for tachycarida, patient is anxious. C-spine cleared with nexus, now fully alert and oriented. DDx includes, but is not limited to: seizure, syncope, arrhythmia. Will do syncope workup, head ct. 04/01/18 21:24 EKG shows sinus tachycardia with rate of 104. No st elevations/depressions. No significant st elevations/depressions. Left axis. Normal intervals. CBC, CMP, normal. Troponin undetectable. CXR shows no acute cardiopulmonary process. Head CT shows no acute abnormalities. Dr Wagner, patient's neurologist, paged. 04/01/18 23:19 Dr Gonsales contacted. Will increase topamax to 125 bid. Will see patient in clinic on . Patient informed. Seizure precautions given. Prescription sent to pharmacy. *DC/Admit/Observation/Transfer Diagnosis at time of Disposition: Seizure - Discharge Dispostion Disposition: HOME Condition at time of disposition: Good Decision to Admit order: No - Referrals - Patient Instructions Printed Discharge Instructions: DI for Seizure Disorder -- Adult Additional Instructions: Please return if you have any new, worsening or concerning symptoms. Please call your neurologist on Monday, they will set up an appointment for you on . Please avoid driving, swimming or any other activity that may be dangerous to have a seizure. - Post Discharge Activity
[2018-04-01] MEDS ORDERED: ACETAMINOPHEN 500 MG TABLET (FP) PO STA (20:55)
[2018-04-01] MEDS ORDERED: ACETAMINOPHEN 325 MG TABLET (FP) ONE (21:01)
[2018-04-01] MEDS ORDERED: KETOROLAC TROMETHAMINE 15 MG/ML VIAL IVPUSH ONE (21:48)
[2018-04-01] MEDS ORDERED: KETOROLAC TROMETHAMINE 30 MG/1 ML VIAL ONE (21:50)
--- NOTE | 2018-04-01 23:28 | PDOC ---
Attending Attestation - HPI HPI: 04/01/18 23:50 The patient is a 52 year old female presenting with family, with a significant past medical history of seizures, HTN, DM, CVA (mild residual L sided weakness) , CHF, and COPD/Asthma, who presents to the ED complaining of a seizure onset today, which lasted a few minutes. Her family states that the patient fell to the ground was all four of her limbs were shaking. She denies any urinary or bowel incontinence. She notes that she had a period of post-ictal confusion. The patient denies chest pain, shortness of breath, headache and dizziness. Denies fever, chills, nausea, vomiting, diarrhea or constipation. Denies dysuria , frequency, urgency and hematuria. Allergies: IV dye, azithromycin Past surgical history: Umbilical hernia Social History: No alcohol, tobacco or drug use reported - Physicial Exam PE: 04/01/18 23:50 Constitutional: Awake, alert, oriented. No acute distress. Head: Normocephalic. Atraumatic Eyes: PERRL. EOMI. Conjunctivae are not pale. ENT: Mucous membranes are moist and intact. Posterior pharynx without exudates or erythema. Uvula midline. Neck: Supple. Full ROM. No lymphadenopathy. Cardiovascular: Regular rate. Regular rhythm. S1, S2 regular. Distal pulses are 2+ and symmetric. Pulmonary/Chest: No evidence of respiratory distress. Clear to auscultation bilaterally No wheezing, rales or rhonchi. Abdominal: Soft and non-distended. There is no tenderness. No rebound, guarding or rigidity. No organomegaly. No palpable masses. Good bowel sounds. Back: No CVA tenderness. Musculoskeletal: No edema. No cyanosis. No clubbing. Full range of motion in all extremities. Nocalf tenderness. Radial/pedal pulses are intact and 2+ bilaterally Skin: Skin is warm and dry. No petechiae. No purpura. Neurological: Alert and oriented to person, place, and time. Cranial nerves II -XII are grossly intact. Normal speech. Strength is grossly symmetric. No sensory deficits. Psychiatric: Good eye contact. Normal interaction, affect and behavior. <Daryl Hinds - Last Filed: 04/01/18 23:50> - Resident Resident Name: Dave Sanderson - ED Attending Attestation I have performed the following: I have examined & evaluated the patient, The case was reviewed & discussed with the resident, I agree w/resident's findings & plan, Exceptions are as noted - HPI HPI: 04/01/18 23:27 52 yo female with a history of seizures hafd a witnessed tonic clonic szs - Physicial Exam PE: 04/01/18 23:34 an obese - Medical Decision Making 04/02/18 03:05 ct scan head no acute intracranial pathology -plan pt;s meds increased and she will follow up w neurologist on imp epilepsy <Lulu Acosta - Last Filed: 04/02/18 03:06>
--- NOTE | 2018-04-02 13:22 | EKG ---
Test Reason : Blood Pressure : / mmHG Vent. Rate : 104 BPM Atrial Rate : 104 BPM P-R Int : 156 ms QRS Dur : 086 ms QT Int : 352 ms P-R-T Axes : 051 -38 037 degrees QTc Int : 462 ms SINUS TACHYCARDIA LEFT AXIS DEVIATION MINIMAL VOLTAGE CRITERIA FOR LVH, MAY BE NORMAL VARIANT ABNORMAL ECG WHEN COMPARED WITH ECG OF 25-MAR-2018 15:55, NO SIGNIFICANT CHANGE WAS FOUND Confirmed by PARVEEN FRIEDMAN MD ([id number]) on 04/02/2018 1:22:21 PM Referred By: Confirmed By:PARVEEN FRIEDMAN MD
== END 2018-04-02 | disposition home or self-care (01) ==
LOC: JER 18:20
PROC: 3E0333Z Introduction of Anti-inflammatory into Peripheral Vein, Percutaneous Approach (ICD-10-PCS; principal; 2018-04-01)
DX: G40.909 Epilepsy, unspecified, not intractable, without status epilepticus (principal); I10 Essential (primary) hypertension; I50.9 Heart failure, unspecified; E78.00 Pure hypercholesterolemia, unspecified; E11.9 Type 2 diabetes mellitus without complications; Z79.4 Long term (current) use of insulin; E03.9 Hypothyroidism, unspecified; J44.9 Chronic obstructive pulmonary disease, unspecified; J45.909 Unspecified asthma, uncomplicated; I69.854 Hemiplegia and hemiparesis following other cerebrovascular disease affecting left non-dominant side
CPT/HCPCS: 36415; 70450-TC; 71045-TC-FY; 80053; 82550; 83735; 84484; 84703; 85025; 85610; 93005; 93010; 96374; 99284-25

== ENCOUNTER 2018-04-11 17:54 | Observation (INO) | payer OTHER ==
--- NOTE | 2018-04-11 21:25 | PDOC ---
History of Present Illness - General Chief Complaint: Syncope/Near Syncope Stated Complaint: SYNCOPE Time Seen by Provider: 04/11/18 20:23 History Source: Patient, Old Records Exam Limitations: No Limitations - History of Present Illness Initial Comments: 52 y/o female presenting to [facility] ER via ambulance from home complaining of syncopal episode while in the shower around 14:30 this afternoon. Currently complaining of weakness to left upper and lower extremities. She was discovered by a family member and helped back to bed before calling for an ambulance. Pt endorses experiencing left sided chest pain with palpitations just prior to losing consciousness, which has now resolved. Denies injuries or pain from falling. Denies postictal period, tongue biting, urinary or bladder incontinence. 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 Seizure disorder Hypertension Hyperlipidemia Severe anxiety/depression Sleep apnea Asthma COPD Past History - Past Medical History Allergies/Adverse Reactions: Allergies Allergy/AdvReac Type Severity Reaction Status Date / Time Iodinated Contrast- Oral and Allergy Intermediate Itching Verified 04/11/18 17: 59 IV Dye [Iodinated Contrast Media - IV Dye] azithromycin AdvReac Intermediate Itching Verified 04/11/18 17:59 Home Medications: Ambulatory Orders Fluoxetine HCl [Prozac -] 40 mg PO DAILY 09/15/14 [place]-3 Fatty Acids [[place]-3] 1,000 mg PO BID 09/15/14 Albuterol Sulfate Inhaler - [Ventolin HFA Inhaler -] 1 - 2 inh PO QID 03/15/16 Liraglutide [Victoza -] 1.8 mg SQ DAILY@1200 03/15/17 clonazePAM [Klonopin -] 0.5 mg PO DAILY PRN 05/12/17 Aspirin 81 mg PO DAILY 08/15/17 Levothyroxine [Synthroid -] 50 mcg PO DAILY 08/15/17 Atorvastatin Ca [Lipitor] 20 mg PO HS 09/09/17 Tiotropium [place] [Spiriva] 1 inh PO DAILY 09/09/17 Loratadine [Claritin] 10 mg PO DAILY 09/11/17 Albuterol 2.5/Ipratropium 0.5 [Duoneb -] 1 amp [place] RQID #120 amp 10/31/17 Insulin (Novolog) [Novolog Flexpen -] 0 units SQ BIDAC 11/30/17 Insulin Glargine,Hum.rec.anlog [Lantus Solostar] 50 unit SQ DAILY 11/30/17 Lisinopril 5 mg PO DAILY 12/08/17 Docusate Sodium [Colace] 100 mg PO BID #60 capsule 12/10/17 Ferrous Sulfate [Feosol] 325 mg PO BID #60 tablet 12/10/17 Topiramate [Topamax -] 200 mg PO BID #60 tablet 12/10/17 Cholecalciferol (Vitamin D3) [D3-50] 50,000 unit PO WEEKLY #4 capsule 03/09/18 Diclofenac Sodium [Voltaren] 2 gm TP TID PRN #3 tube 03/09/18 Topiramate [Topamax] 125 mg PO BID #60 tab 04/01/18 Furosemide [Lasix -] 40 mg PO DAILY 04/06/18 Hydrocodone/Acetaminophen [[place] 10-325 Tablet] 1 each PO BID PRN #60 tablet MDD 2 04/06/18 Sitagliptin Phos/Metformin HCl [Janumet Xr 50-500 mg Tablet] 1 each PO DAILY 07/17 Asthma: Yes Cardiac Disorders: No 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) COPD: Yes CHF: Yes (DIASTOLIC) Dementia: No Diabetes: Yes (IDDM) GI Disorders: No Disorders: No HTN: Yes Hypercholesterolemia: Yes Liver Disease: Yes (hep C - treated) Psychiatric Problems: Yes Seizures: Yes Thyroid Disease: Yes (hypothyroid) - Surgical History Abdominal Surgery: Yes (UMBILICAL HERNIA) - Immunization History Immunization Up to Date: No - Suicide/Smoking/Psychosocial Hx Smoking History: Former smoker Have you smoked in the past 12 months: No If you are a former smoker, when did you quit?: 2014 Information on smoking cessation initiated: No 'Breaking Loose' booklet given: 09/16/14 Hx Alcohol Use: No Drug/Substance Use Hx: No Substance Use Type: None Hx Substance Use Treatment: No Review of Systems - Review of Systems Able to Perform ROS?: Yes Is the patient limited Bulgarian proficient: No Constitutional: Yes: Chills, Weakness HEENTM: No: Recent change in vision Respiratory: No: Shortness of Breath Cardiac (ROS): Yes: Chest Pain, Lightheadedness, Palpitations, Syncope ABD/GI: Yes: Nausea. No: Constipated, Diarrhea, Vomiting, Abdominal cramping Musculoskeletal: Yes: Muscle Weakness (L arm and L leg) Integumentary: No: Bruising Neurological: Yes: Weakness, Unsteady Gait, Dizziness. No: Headache, Numbness, Paresthesia, Seizure Hematologic/Lymphatic: No: Easy Bleeding, Easy Bruising *Physical Exam - Vital Signs Last Vital Signs Temp Pulse Resp BP Pulse Ox 107 H 18 116/66 95 04/11/18 17:59 04/11/18 17:59 04/11/18 17:59 04/11/18 17:59 - Physical Exam Comments: Constitutional: Well-developed, well-nourished, obese female in mild distress. Found semi-fowlers in hospital bed. Alert and oriented x4. Answered all questions appropriately and completely. Speech was non-labored, non-pressured. Head: Normocephalic. No obvious external signs of trauma. No periorbital ecchymosis or Battles sign. Eyes: PERRL. EOMI. Sclerae white. Conjunctiva moist and not injected. EARS: Hearing grossly intact. No discharge. NOSE: No nasal discharge. THROAT: Dry mucosal membranes. Oral cavity and pharynx structurally normal. No inflammation, swelling, exudate, or lesions. ENT: EAMs normal. Hearing normal. Nasal mucosa normal. Lips, gums and oropharynx: pink, moist, not injected, no lesions, no ulcerations Neck: Supple, trachea is midline. No JVD. Cardiovascular: Regular rate and regular rhythm. No murmur, rubs, clicks, or gallops. Peripheral pulses: Radial pulses full. Respiratory: Breathing unlabored. Equal chest rise and fall. Clear to auscultation bilaterally. No stridor, no wheezing, no rhonchi. Gastrointestinal: abdomen is soft, non-tender, non-distended. No pulsatile masses. No overlying skin lesions or obvious signs of trauma. Neuro: Alert and oriented. Cranial nerves intact, decreased sensation to left upper and lower extremities. Anesthesiology Tech strength 4/5 on left and 5/5 on right. Left upper and lower extremity drift. Right side upper and lower extremities 5/5. MSK / Skin: Warm, dry, and intact. No bruising, rashes, or other lesions. No palpable nodules. No bleeding, bruising, or obvious bony deformities. : No R or L CVA tenderness. Psych: Affect: appropriate. Mood: normal. NIH Stroke Scale - Last Known Well Date/Time & Onset Date Last Known Well: 04/11/18 Time Last Known Well: 16:30 - Initial Evaluation Level of consciousness: Alert Ask patient the month and their age: Answers both correctly Ask patient to open & close eyes; make fist and let go: Obeys both correctly Best gaze (horizontal eye movement): Normal Visual field testing: No visual field loss Facial paresis (Show teeth/raise eyebrows/close eyes tight): Normal symmetrical movement Motor Function: Left Arm: Drift Motor Function: Right Arm: Normal (extends arm 90 (or 45) degrees for 10 seconds without drift Motor Function: Left Leg: Drift Motor Function: Right Leg: Normal (extends leg 30 degrees for 5 seconds without drift) Limb Ataxia: No ataxia Sensory(Use pinprick test arms,legs,trunk,face/side to side): Severe to total sensory loss (Loss of sensation in left arm and left leg) Best language (Describe picture, name items, read sentences): No Aphasia Dysarthria (read several words): Normal articulation Extinction and Inattention: No abnormality - Total Score NIH Stroke Scale Score: 4 Critical Care Time/MDM Note - Medical Decision Making Note: *Reviewed nursing notes and prior visit documentation. 52 y/o female complaining of syncope and left upper and lower extremity weakness. Strength 4/5 on both left extremities with loss of sensation. Reports h/o similar presentation with prior CVA. Activated stroke alert and ordered stroke order set. D/D includes CVA, TIA, metabolic derangement, or symptomatic hypotension. POC Glucose 271 CBC unremarkable for anemia or leukocytosis. CMP unremarkable for electrolyte derangement. LFTs not elevated. Troponin not elevated. PT/INR within normal. UA unremarkable for pyuria, leukocyte esterase, or nitrites. Low suspicion for UTI. 21:54 Dr. Felder from radiologist called to inform that CT of head was negative for intracranial hemorrhage. 22:[address] Wagner. My attending, Dr. Boyd, performed telephone consult with Dr. Wagner. He requests pt to be admitted to the hospital for MRI and further neuro consultation. 22:58 Microblog sent to [facility] Hospitalist team for admission. 23:27 Telephone consult with resident Dr. Parson. Agrees to admit pt to telemetry on observation status for Dr. Edwards for syncope workup, MRI, and neuro consultation for Dr. Wagner. Discharge Disposition - Diagnosis History of stroke, Left-sided muscle weakness Syncope Qualifiers: Syncope type: unspecified Qualified Code(s): R55 - Syncope and collapse - Discharge Dispostion Condition at time of disposition: Fair Last Admission D/C Date: 11/10/17 Decision to Admit order: Yes - Referrals - Patient Instructions - Post Discharge Activity
[2018-04-11] MEDS ORDERED: SODIUM CHLORIDE 1,000 ML IV SCH (21:30)
[2018-04-11 21:49] LABS: BASO % 0.4 % (0-2.0); EOS % 3.2 % (0-4.5); HEMOGLOBIN 12.9 GM/dL (10.7-15.3); LYMPH % 23.5 % (8-40); MCH 25.6 pg (25.7-33.7); MEAN CELL VOLUME 77.6 fl (80-96); MEAN PLT VOLUME 9.3 fl (7.5-11.1); MONO % 6.2 % (3.8-10.2); NEUT % 66.7 % (42.8-82.8); PLATELET COUNT 253 K/MM3 (134-434); RBC 5.03 M/mm3 (3.60-5.2); RDW 15.2 % (11.6-15.6); WHITE BLOOD COUNT 9.7 K/mm3 (4.0-10.0)
[2018-04-11 22:04] LABS: INR 1.04 (0.83-1.09); PROTHROMBIN TIME (PATIENT) 11.7 SEC (9.7-13.0)
[2018-04-11 22:27] LABS: ALBUMIN 3.7 g/dl (3.4-5.0); ANION GAP 9 MMOL/L (8-16); BILIRUBIN,TOTAL 0.3 mg/dL (0.2-1.0); BLOOD UREA NITROGEN 12 mg/dL (7-18); CHLORIDE 99 mmol/L (98-107); CHOLESTEROL 142 mg/dL (50-200); CO2 31 mmol/L (21-32); CREATININE 0.9 mg/dL (0.55-1.02); GLUCOSE,RANDOM 223 mg/dL (74-106); POTASSIUM 3.7 mmol/L (3.5-5.1); SGOT/AST 19 U/L (15-37); SGPT/ALT 19 U/L (13-61); SODIUM 139 mmol/L (136-145); TOT PROT 7.8 g/dl (6.4-8.2); TRIGLYCERIDES 313 mg/dL (35-160)
[2018-04-11 22:28] LABS: ALK PHOS 81 U/L (45-117); HDL CHOLESTEROL 30 mg/dL (40-60)
--- NOTE | 2018-04-11 22:36 | PDOC ---
Attending Attestation - Resident Resident Name: Eliu Maldonado - ED Attending Attestation I have performed the following: I have examined & evaluated the patient, The case was reviewed & discussed with the resident, I agree w/resident's findings & plan, Exceptions are as noted - HPI HPI: 04/11/18 22:39 Ms Negrete is a 52 yo F h/o DM, CVA 2015 with left sided weakness, seizure disorder, hypertension, hyperlipidemia, severe anxiety/depression, sleep apnea, asthma and COPD. She presents to the ED today due to weakness Pt reports that she was in her usual state of health, was going to take a shower prior to her aid leaving the home at 5pm (she estimated 4:30pm?) She was in the shower/tub and does not remember what happened She was discovered by her granddaughter s/p ?syncopal event or seizure She was assisted from the bathroom by her family member and placed in bed She then reported chest pain, no shortness of breath She denies headache She denies speech changes - Physicial Exam PE: 04/11/18 22:34 GENERAL: The patient is in no acute distress, morbidly obese. HEAD: Normal EYES: PERRLA, EOMI, sclera anicteric, conjunctiva clear. ENT: Ears normal, nares patent, oropharynx clear without exudates. Dry mucous membranes. NECK: Normal range of motion, supple LUNGS: Breath sounds equal, clear to auscultation bilaterally. HEART:Regular rate and rhythm, normal S1 and S2 without murmur, rub or gallop. ABDOMEN: Soft, nontender, normoactive bowel sounds. No guarding, no rebound. EXTREMITIES: No edema. No clubbing or cyanosis. No erythema, or tenderness. NEUROLOGICAL: Please see NIHSS MUSCULOSKELETAL: Back non-tender to palpation, no CVA tenderness SKIN: Warm, Dry, normal turgor, no rashes or lesions noted. - Medical Decision Making Laboratory Tests 04/11/18 04/11/18 04/11/18 21:41 21:41 21:41 WBC 9.7 Hgb 12.9 Hct 39.0 Plt Count 253 INR 1.04 BUN 12 Creatinine 0.9 Creatine Kinase 109 Troponin I < 0.02 04/11/18 22:[address] Wagner Will admit Will order MRI 04/11/18 22:33 04/11/18 22:38 EKG: Sinus tachycardia rate of 107 bpm, L axis deviation, no st elevation or depressions, t waves upright, intervals abnormal - QTc:504ms NIH Stroke Scale - Last Known Well Date/Time & Onset Date Last Known Well: 04/11/18 Time Last Known Well: 14:00 - Initial Evaluation Level of consciousness: Alert Ask patient the month and their age: Answers both correctly Ask patient to open & close eyes; make fist and let go: Obeys both correctly Best gaze (horizontal eye movement): Normal Visual field testing: No visual field loss Facial paresis (Show teeth/raise eyebrows/close eyes tight): Normal symmetrical movement Motor Function: Left Arm: Drift Motor Function: Right Arm: Normal (extends arm 90 (or 45) degrees for 10 seconds without drift Motor Function: Left Leg: Drift Motor Function: Right Leg: Normal (extends leg 30 degrees for 5 seconds without drift) Limb Ataxia: No ataxia Sensory(Use pinprick test arms,legs,trunk,face/side to side): Mild to moderate decrease in sensation Best language (Describe picture, name items, read sentences): No Aphasia Dysarthria (read several words): Normal articulation Extinction and Inattention: No abnormality - Total Score NIH Stroke Scale Score: 3
--- NOTE | 2018-04-11 23:37 | PN ---
Teaching Attending Note Name of Resident: Manuela Avendaño ATTENDING PHYSICIAN STATEMENT I saw and evaluated the patient. I reviewed the resident's note and discussed the case with the resident. I agree with the resident's findings and plan as documented. SUBJECTIVE: Patient is a 52 year old woman with history of NIDDM, CVA in 2015 with left sided weakness, seizure disorder, hypertension, hyperlipidemia, severe anxiety/ depression, sleep apnea, asthma and COPD who presents to the ER today due to weakness and ?syncope in the bathroom. She was in the shower/tub and does not remember what happened. She was discovered by her granddaughter in the bathroom after a ?syncopal event or seizure and was assisted from the bathroom and placed on the bed. She then reported chest pain, no shortness of breath. Denies headache or changes in speech. Uses a walker. Was evaluated in the ER on 04/01/18 for possible seizure. Review of her CT scans and MRI from 2014 do not show any infarct. Patient insists left side weakness is new, though it had been documented in her records during prior visits. OBJECTIVE: Alert and obese and orthostatic Vital Signs Period Temp Pulse Resp BP Sys/[place]iron Pulse Ox Last 24 Hr 107 18 116/66 95 HEENT: No Jaundice, eye redness or discharge, PERRLA, EOMI. Normocephalic, atraumatic. External ears are normal and hearing is grossly intact. No nasal discharge. Neck: Supple, nontender. No palpable adenopathy or thyromegaly. No JVD Chest: Good effort. Clear to auscultation and percussion. Heart: Regular. No S3, rub or murmur Abdomen: Not distended, soft, nontender and no HSM. No rebound or guarding. Normoactive bowel sounds. Ext: Peripheral pulses intact. No leg edema. Skin: Warm and dry. No petechiae, rash or ecchymosis. Neuro: Alert. Oriented x3. CN 2-12 grossly intact. Left hemiparesis. Current Medications Generic Name Dose Route Start Last Admin Trade Name Freq PRN Reason Stop Dose Admin Sodium Chloride 1,000 mls @ 42 mls/hr 04/11/18 21:30 04/11/18 22:08 Normal Saline - IV 42 mls/hr ASDIR SHAUN Administration Home Medications Medication Instructions Recorded Fluoxetine HCl [Prozac -] 40 mg PO DAILY 02/16/15 [place]-3 Fatty Acids [[place]-3] 1,000 mg PO BID 09/15/14 Albuterol Sulfate Inhaler - 1 - 2 inh PO QID 03/15/16 [Ventolin HFA Inhaler -] Liraglutide [Victoza -] 1.8 mg SQ DAILY@1200 03/15/17 clonazePAM [Klonopin -] 0.5 mg PO DAILY PRN 05/12/17 Aspirin 81 mg PO DAILY 08/15/17 Levothyroxine [Synthroid -] 50 mcg PO DAILY 08/15/17 Atorvastatin Ca [Lipitor] 20 mg PO HS 09/09/17 Tiotropium [place] [Spiriva] 1 inh PO DAILY 09/09/17 Loratadine [Claritin] 10 mg PO DAILY 09/11/17 Albuterol 2.5/Ipratropium 0.5 1 amp NEB RQID #120 amp 10/31/17 [Duoneb -] Insulin (Novolog) [Novolog Flexpen 0 units SQ BIDAC 11/30/17 -] Insulin Glargine,Hum.rec.anlog 50 unit SQ DAILY 11/30/17 [Lantus Solostar] Lisinopril 5 mg PO DAILY 12/08/17 Docusate Sodium [Colace] 100 mg PO BID #60 capsule 12/10/17 Ferrous Sulfate [Feosol] 325 mg PO BID #60 tablet 12/10/17 Topiramate [Topamax -] 200 mg PO BID #60 tablet 12/10/17 Cholecalciferol (Vitamin D3) 50,000 unit PO WEEKLY #4 capsule 03/09/18 [D3-50] Diclofenac Sodium [Voltaren] 2 gm TP TID PRN #3 tube 03/09/18 Topiramate [Topamax] 125 mg PO BID #60 tab 04/01/18 Furosemide [Lasix -] 40 mg PO DAILY 04/06/18 Hydrocodone/Acetaminophen [[place] 1 each PO BID PRN #60 tablet MDD 2 04/06/18 10-325 Tablet] Abnormal Lab Results 04/11/18 04/11/18 21:41 21:41 MCV 77.6 L MCH 25.6 L Random Glucose 223 H Triglycerides 313 H HDL Cholesterol 30 L ASSESSMENT AND PLAN: 1. Syncope - Head CT scan does not show any acute pathology. Not considered a TPA candidate by neurology. No significant changes on EKG. Patient has orthostasis - will hold lasix and encourage increased oral fluid intake. She was reportedly started on lasix due to leg edema - her LVEF on 09/11/17 was 55-60 %, thus it is plausible that her edema may not have been primarily due to cardiac disease, but as a result of "other things" such as capillary leak, hypercabia, etc - thus aggressive diuresis may lead to intravascular volume contraction and orthostasis. May also have had a seizure - was in the ER last week for possible seizure. Will check topamax level, urine toxicology, UA, EEG, brain MRI, and carotid doppler. Monitor on telemetry with fall precautions. Ask neurology whether she needs a second anticonvulsant drug. 2. DM - For now, we will hold the home diabetes drugs and implement sliding scale insulin regimen. Provide comprehensive diabetes care with patient teaching and counseling about the importance of euglycemia, eye care and foot care. 3. Obesity - Will provide patient all the necessary assistance, counseling and positive reinforcement to facilitate weight loss. Consult staff sonographer. 4. DVT prophylaxis - Lovenox 40 mg SQ q 24 hours. 5. Advance directives - Full code
[2018-04-12] MEDS ORDERED: TOPIRAMATE 100 MG TABLET PO SCH ×2 (01:00→14:45)
[2018-04-12] MEDS ORDERED: oxyCODONE HCL 5 MG TABLET PO PRN (01:05)
--- NOTE | 2018-04-12 01:05 | HP ---
CHIEF COMPLAINT: syncopal episode at home PCP: HISTORY OF PRESENT ILLNESS: 52 y/o female with PMH of DM, CVA(2015), HTN, HLD, seizure disorder, MARILU, asthma , severe anxiety/depression presents to the ED after a syncopal episode at home. Patient states all she remembers about the episode was that she was in her bathtub and then the next thing she knew, her granddaughter and home health aid were helping her move to the bedroom to come to the hospital. She states that now she is having trouble feeling her left side and is has having increased weakness of the limbs on the left side. She has needed to walk with a walker since her CVA in 2014. Review of MRI and CT scans from 2015 do not show any obvious infarcts. Of note, she was in this ER about 5 days ago for a seizure episode. She denies any headache/SOB/N/V fevers or chills. ER course was notable for: (1)labs were unremarkable (2) head CT was negative for any acute pathology (3) Recent Travel: none PAST MEDICAL HISTORY: see above PAST SURGICAL HISTORY: x3; umbilical hernia repair Social History: Smoking:former smoker; quit 20 years ago Alcohol:denies Drugs: denies Family History: Allergies Iodinated Contrast- Oral and IV Dye [Iodinated Contrast Media - IV Dye] Allergy (Intermediate, Verified 04/11/18 17:59) Itching azithromycin Adverse Reaction (Intermediate, Verified 04/11/18 17:59) Itching 10/26/17 SUSPECTED ADR TO ZITHROMAX . RX: MILD: ITCHING,NAUSEA. HOME MEDICATIONS: Home Medications Medication Instructions Recorded Fluoxetine HCl [Prozac -] 40 mg PO DAILY 09/15/14 [place]-3 Fatty Acids [[place]-3] 1,000 mg PO BID 09/15/14 Albuterol Sulfate Inhaler - 1 - 2 inh PO QID 03/15/16 [Ventolin HFA Inhaler -] Liraglutide [Victoza -] 1.8 mg SQ DAILY@1200 03/15/17 clonazePAM [Klonopin -] 0.5 mg PO DAILY PRN 05/12/17 Aspirin 81 mg PO DAILY 08/15/17 Levothyroxine [Synthroid -] 50 mcg PO DAILY 08/15/17 Atorvastatin Ca [Lipitor] 20 mg PO HS 09/09/17 Tiotropium [place] [Spiriva] 1 inh PO DAILY 09/09/17 Loratadine [Claritin] 10 mg PO DAILY 09/11/17 Albuterol 2.5/Ipratropium 0.5 1 amp NEB RQID #120 amp 10/31/17 [Duoneb -] Insulin (Novolog) [Novolog Flexpen 0 units SQ BIDAC 11/30/17 -] Insulin Glargine,Hum.rec.anlog 50 unit SQ DAILY 11/30/17 [Lantus Solostar] Lisinopril 5 mg PO DAILY 12/08/17 Docusate Sodium [Colace] 100 mg PO BID #60 capsule 12/10/17 Ferrous Sulfate [Feosol] 325 mg PO BID #60 tablet 12/10/17 Topiramate [Topamax -] 200 mg PO BID #60 tablet 12/10/17 Cholecalciferol (Vitamin D3) 50,000 unit PO WEEKLY #4 capsule 03/09/18 [D3-50] Diclofenac Sodium [Voltaren] 2 gm TP TID PRN #3 tube 03/09/18 Topiramate [Topamax] 125 mg PO BID #60 tab 04/01/18 Furosemide [Lasix -] 40 mg PO DAILY 04/06/18 Hydrocodone/Acetaminophen [[place] 1 each PO BID PRN #60 tablet MDD 2 04/06/18 10-325 Tablet] Sitagliptin Phos/Metformin HCl 1 each PO DAILY 04/11/18 [Janumet Xr 50-500 mg Tablet] REVIEW OF SYSTEMS CONSTITUTIONAL: Absent: fever, chills, diaphoresis, generalized weakness, malaise, loss of appetite, weight change HEENT: Absent: rhinorrhea, nasal congestion, throat pain, throat swelling, difficulty swallowing, mouth swelling, ear pain, eye pain, visual changes CARDIOVASCULAR: Present:syncope, palpitations Absent: chest pain, irregular heart rate, lightheadedness, peripheral edema RESPIRATORY: Absent: cough, shortness of breath, dyspnea with exertion, orthopnea, wheezing, stridor, hemoptysis GASTROINTESTINAL: Absent: abdominal pain, abdominal distension, nausea, vomiting, diarrhea, constipation, melena, hematochezia GENITOURINARY: Absent: dysuria, frequency, urgency, hesitancy, hematuria, flank pain, genital pain MUSCULOSKELETAL: Present:arthralgia, Absent: myalgia, joint swelling, back pain, neck pain SKIN: Absent: rash, itching, pallor HEMATOLOGIC/IMMUNOLOGIC: Absent: easy bleeding, easy bruising, lymphadenopathy, frequent infections ENDOCRINE: Absent: unexplained weight gain, unexplained weight loss, heat intolerance, cold intolerance NEUROLOGIC: Absent: headache, focal weakness or paresthesias, dizziness, unsteady gait, seizure, mental status changes, bladder or bowel incontinence PSYCHIATRIC: Absent: anxiety, depression, suicidal or homicidal ideation, hallucinations. PHYSICAL EXAMINATION Vital Signs - 24 hr 04/11/18 17:59 Pulse Rate 107 H Respiratory 18 Rate Blood Pressure 116/66 O2 Sat by Pulse 95 Oximetry (%) ORTHOSTATIC VITAL SIGNS: laying down: 130/74; sitting up: 110/65; standing up: 100/55 GENERAL: Awake, alert, and fully oriented, in no acute distress. HEAD: Normal with no signs of trauma. EYES: Pupils equal, round and reactive to light, extraocular movements intact, sclera anicteric, conjunctiva clear. No lid lag. NECK: No JVD LUNGS:CTA B/L; no rales, rhonchi or wheezing . HEART: tachycardic, normal S1 and S2 without murmur, rub or gallop. ABDOMEN: Soft, nontender, not distended, normoactive bowel sounds, no guarding, no rebound, no masses. No hepatomegaly or splenomegaly. MUSCULOSKELETAL: Normal range of motion at all joints. No bony deformities or tenderness. No CVA tenderness. EXTREMITIES: warm; well perfused; no clubbing/cyanosis; trace edema NEUROLOGICAL: Cranial nerves II-XII intact. Normal speech. Normal gait.; L sided strength 2-3/5 R sided strength: 5/5; L sided sensation not fully intact PSYCHIATRIC: Cooperative. Good eye contact. Appropriate mood and affect. SKIN: Warm, dry, normal turgor, no rashes or lesions noted, normal capillary refill. Laboratory Results - last 24 hr 04/11/18 04/11/18 04/11/18 21:33 21:41 21:41 WBC 9.7 RBC 5.03 Hgb 12.9 Hct 39.0 MCV 77.6 L MCH 25.6 L MCHC 33.0 RDW 15.2 Plt Count 253 MPV 9.3 Absolute Neuts (auto) 6.5 Neutrophils % 66.7 Lymphocytes % 23.5 Monocytes % 6.2 Eosinophils % 3.2 Basophils % 0.4 Nucleated RBC % 0 PT with INR 11.70 INR 1.04 Sodium Potassium Chloride Carbon Dioxide Anion Gap BUN Creatinine Creat Clearance w eGFR POC Glucometer [phone] Random Glucose Calcium Total Bilirubin AST ALT Alkaline Phosphatase Creatine Kinase Troponin I Total Protein Albumin Triglycerides Cholesterol Total LDL Cholesterol HDL Cholesterol Blood Type Antibody Screen 04/11/18 04/11/18 21:41 21:41 WBC RBC Hgb Hct MCV MCH MCHC RDW Plt Count MPV Absolute Neuts (auto) Neutrophils % Lymphocytes % Monocytes % Eosinophils % Basophils % Nucleated RBC % PT with INR INR Sodium 139 Potassium 3.7 Chloride 99 Carbon Dioxide 31 Anion Gap 9 BUN 12 Creatinine 0.9 Creat Clearance w eGFR > 60 POC Glucometer Random Glucose 223 H Calcium 9.0 Total Bilirubin 0.3 AST 19 ALT 19 Alkaline Phosphatase 81 Creatine Kinase 109 Troponin I < 0.02 Total Protein 7.8 Albumin 3.7 Triglycerides 313 H Cholesterol 142 Total LDL Cholesterol 96 HDL Cholesterol 30 L Blood Type O POSITIVE Antibody Screen Negative ASSESSMENT/PLAN: 52 y/o female with an extensive medical history presents to the ED following a syncopal episode at home, found to have new L sided weakness that was not previously noted by patient until today. # Syncope possibly 2/2 seizure episode? unclear etiology since head CT showed no acute pathology -brain MRI ordered -echo/ carotid dopplers -patient was positive for orthostatics -neuro consulted- inquire about use of second anti-convulsant? -EEG ordered #Seizure -continue topiramate 125; ask Dr. Wagner about second anti-convulsant? #DM -holding home diabetes meds -started ISS -HbA1c pending #HLD - increased lipitor from 20 to 80 #HTN -holding home meds given + orthostatics DVT prophylaxis: lolvenox 40 SQ daily F/E/N: not on fluids replete electrolytes when necessary diabetic/sodium diet dispo: tele/obs Problem List - Problem (1) Left-sided muscle weakness Code(s): M62.81 - MUSCLE WEAKNESS (GENERALIZED) (2) Syncope Code(s): R55 - SYNCOPE AND COLLAPSE Qualifiers: Syncope type: unspecified Qualified Code(s): R55 - Syncope and collapse (3) History of stroke Code(s): Z86.73 - PRSNL HX OF TIA (TIA), AND CEREB INFRC W/O RESID DEFICITS (4) Seizure Code(s): R56.9 - UNSPECIFIED CONVULSIONS Visit type - Emergency Visit Emergency Visit: Yes ED Registration Date: 04/12/18 Care time: The patient presented to the Emergency Department on the above date and was hospitalized for further evaluation of their emergent condition. - New Patient This patient is new to me today: Yes Date on this admission: 04/12/18 - Critical Care Critical Care patient: No Hospitalist Screening - Colonoscopy Questionnaire Colonoscopy Questionnaire: Colonoscopy Questionnaire - Patient: 50 - 75 years old and never had a screening colonoscopy: Unknown History of colon or rectal polyps, or CA: Unknown History of IBD, Crohn's disease or UC: Unknown History of abdominal radiation therapy as a child: Unknown - Relative: 1 with colon or rectal CA, or polyps at age 60 or younger: Unknown Colon or rectal CA diagnosed at age 45 or younger: Unknown Multiple relatives with colon or rectal CA: Unknown - Outcome: Screening Result: Negative Screen
[2018-04-12] MEDS ORDERED: ACETAMINOPHEN 325 MG TABLET (FP) PO PRN (01:06)
[2018-04-12 01:49] LABS: URINE APPEARANCE CLEAR; URINE BILIRUBIN NEGATIVE (<2.0 mg/dL); URINE COLOR LTYELLOW; URINE GLUCOSE (UA) NEGATIVE (NEGATIVE); URINE KETONE NEGATIVE (NEGATIVE); URINE LEUK ESTERASE NEGATIVE (NEGATIVE); URINE NITRITE NEGATIVE (NEGATIVE); URINE PROTEIN NEGATIVE (NEGATIVE); URINE UROBILINOGEN NEGATIVE mg/dL (0.2-1.0)
[2018-04-12 03:17] VITALS: BMI 60.1
[2018-04-12 06:20] LABS: BASO % 0.5 % (0-2.0); EOS % 3.1 % (0-4.5); HEMATOCRIT 36.1 % (32.4-45.2); HEMOGLOBIN 11.8 GM/dL (10.7-15.3); LYMPH % 29.7 % (8-40); MCH 25.3 pg (25.7-33.7); MCHC 32.6 g/dl (32.0-36.0); MEAN CELL VOLUME 77.6 fl (80-96); MEAN PLT VOLUME 9.4 fl (7.5-11.1); NEUT % 59.7 % (42.8-82.8); PLATELET COUNT 201 K/MM3 (134-434); RBC 4.65 M/mm3 (3.60-5.2); RDW 15.5 % (11.6-15.6)
[2018-04-12] MEDS: INSULIN SLIDING SCALE (NOVOLOG) 1 VIAL SQ SCH ×2 (06:40→12:14)
[2018-04-12] MEDS ORDERED: LEVOTHYROXINE NA 50 MCG TABLET (FP) PO SCH (07:00)
[2018-04-12 07:08] LABS: CHLORIDE 99 mmol/L (98-107); POTASSIUM 3.7 mmol/L (3.5-5.1); SODIUM 136 mmol/L (136-145)
[2018-04-12 07:22] LABS: ALBUMIN 3.3 g/dl (3.4-5.0); ALK PHOS 73 U/L (45-117); ANION GAP 10 MMOL/L (8-16); BILIRUBIN,TOTAL 0.3 mg/dL (0.2-1.0); BLOOD UREA NITROGEN 14 mg/dL (7-18); CALCIUM 8.4 mg/dL (8.5-10.1); CO2 27 mmol/L (21-32); CREATININE 0.9 mg/dL (0.55-1.02); GLUCOSE,RANDOM 287 mg/dL (74-106); MAGNESIUM 1.7 mg/dL (1.8-2.4); PHOSPHOROUS 4.2 mg/dL (2.5-4.9); SGOT/AST 16 U/L (15-37); SGPT/ALT 16 U/L (13-61); TOT PROT 6.9 g/dl (6.4-8.2)
[2018-04-12] MEDS: ALBUTEROL SO4 2.5/IPRATROPIUM 0.5 INH SOL 3 ML VIAL.NEB. NEB SCH ×3 (07:30→15:56)
[2018-04-12] MEDS ORDERED: PT OWN MED DRAWER 7, Y5N ONE (08:58)
[2018-04-12] MEDS ORDERED: MAGNESIUM 2GM/50ML STERILE WATER IVPB IVPB ONE (09:00)
[2018-04-12] MEDS ORDERED: TOPIRAMATE PO SCH (10:00)
[2018-04-12] MEDS ORDERED: TIOTROPIUM BROMIDE 2.5 MCG (SPIRIVA) RESPIMAT INHALER IH SCH (10:00)
[2018-04-12] MEDS ORDERED: ENOXAPARIN NA (PORCINE) 40 MG/0.4 ML DISP.SYRIN SQ SCH (10:00)
[2018-04-12] MEDS ORDERED: FLUoxetine HCL 20 MG CAPSULE (FP) PO SCH (10:00)
--- NOTE | 2018-04-12 10:30 | CON.NEURO ---
Consult - History of Present Illness History of Present Illness: 52 y/o female with PMH of DM, CVA(2015), HTN, HLD, seizure disorder, MARILU, asthma , severe anxiety/depression presents to the ED after a syncopal episode at home. Patient states all she remembers about the episode was that she was in her bathtub and then the next thing she knew, her granddaughter and home health aid were helping her move to the bedroom to come to the hospital. She states that now she is having trouble feeling her left side and is has having increased weakness of the limbs on the left side. She has needed to walk with a walker since her CVA in 2014. Review of MRI and CT scans from 2015 do not show any obvious infarcts. Of note, she was in this ER about 5 days ago for a seizure episode. She denies any headache/SOB/N/V fevers or chills. IMPRESSION: No CT evidence of acute intracranial pathology. There has been no definite interval change in comparison to a prior CT study of 04/01/2018. 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 Cardio/Vascular: Yes: CAD, HTN, Hyperlipdemia Pulmonary: Yes: Sleep Apnea ...LMP: 10/27/17 ...: No Infectious Disease: Yes: Other (Hep C) Psych: Yes: Anxiety, Bipolar Endocrine: Yes: Diabetes Mellitus - Past Surgical History Past Surgical History: Yes: - Alcohol/Substance Use Hx Alcohol Use: No - Smoking History Smoking history: Former smoker Have you smoked in the past 12 months: No If you are a former smoker, when did you quit?: 2014 - Social History Usual Living Arrangement: With Significant Other ADL: Independent History of Recent Travel: No Home Medications - Allergies Allergies/Adverse Reactions: Allergies Allergy/AdvReac Type Severity Reaction Status Date / Time Iodinated Contrast- Oral and Allergy Intermediate Itching Verified 04/11/18 17: 59 IV Dye [Iodinated Contrast Media - IV Dye] azithromycin AdvReac Intermediate Itching Verified 04/11/18 17:59 - Home Medications Home Medications: Ambulatory Orders Fluoxetine HCl [Prozac -] 40 mg PO DAILY 09/15/14 [place]-3 Fatty Acids [[place]-3] 1,000 mg PO BID 09/15/14 Albuterol Sulfate Inhaler - [Ventolin HFA Inhaler -] 1 - 2 inh PO QID 03/15/16 Liraglutide [Victoza -] 1.8 mg SQ DAILY@1200 03/15/17 clonazePAM [Klonopin -] 0.5 mg PO DAILY PRN 05/12/17 Aspirin 81 mg PO DAILY 08/15/17 Levothyroxine [Synthroid -] 50 mcg PO DAILY 08/15/17 Atorvastatin Ca [Lipitor] 20 mg PO HS 09/09/17 Tiotropium [place] [Spiriva] 1 inh PO DAILY 09/09/17 Loratadine [Claritin] 10 mg PO DAILY 09/11/17 Albuterol 2.5/Ipratropium 0.5 [Duoneb -] 1 amp NEB RQID #120 amp 10/31/17 Insulin (Novolog) [Novolog Flexpen -] 85 units SQ TID 11/30/17 Insulin Glargine,Hum.rec.anlog [Lantus Solostar] 50 unit SQ DAILY 11/30/17 Lisinopril 5 mg PO DAILY 12/08/17 Docusate Sodium [Colace] 100 mg PO BID #60 capsule 12/10/17 Ferrous Sulfate [Feosol] 325 mg PO BID #60 tablet 12/10/17 Topiramate [Topamax -] 200 mg PO BID #60 tablet 12/10/17 Cholecalciferol (Vitamin D3) [D3-50] 50,000 unit PO WEEKLY #4 capsule 03/09/18 Diclofenac Sodium [Voltaren] 2 gm TP TID PRN #3 tube 03/09/18 Topiramate [Topamax] 125 mg PO BID #60 tab 04/01/18 Furosemide [Lasix -] 40 mg PO DAILY 04/06/18 Hydrocodone/Acetaminophen [[place] 10-325 Tablet] 1 each PO BID PRN #60 tablet MDD 2 04/06/18 Sitagliptin Phos/Metformin HCl [Janumet Xr 50-500 mg Tablet] 1 each PO DAILY 07/17 Calcium Carbonate/Vitamin D3 [Calcium 500 mg Chewable Tablet] 500 mg PO DAILY Montelukast Sodium [Singulair] 10 mg PO DAILY 04/12/18 Topiramate 50 mg PO BID 04/12/18 Zolpidem Tartrate [Ambien] 10 mg PO HS 04/12/18 Family Disease History - Family Disease History Family Disease History: Diabetes: Mother (,), Brother (one living - etoh ), Sister (two living - ), Heart Disease: Father (living, no contact,etoh), Sister, Respiratory: Father, Other: Father, Mother, Brother, Sister, Daughter ( one with etoh) Physical Exam-Neuro Vital Signs: Vital Signs Temperature 98 F 04/12/18 08:48 Pulse Rate 90 04/12/18 08:48 Respiratory Rate 18 04/12/18 08:48 Blood Pressure 152/90 04/12/18 08:48 O2 Sat by Pulse Oximetry (%) 97 04/12/18 03:18 Labs: CBC, BMP 04/12/18 05:30 04/12/18 05:30 INR, PTT INR 1.04 (0.83-1.09) 04/11/18 21:41 - Neuro Exam Level Of Consciousness: Yes: Oriented to Person (no focal weakness, with best effort ) Problem List - Problems (1) Left-sided muscle weakness Code(s): M62.81 - MUSCLE WEAKNESS (GENERALIZED) (2) Syncope Code(s): R55 - SYNCOPE AND COLLAPSE Qualifiers: Syncope type: unspecified Qualified Code(s): R55 - Syncope and collapse (3) Seizure Code(s): R56.9 - UNSPECIFIED CONVULSIONS Assessment/Plan unclear cause of left sided weakness -transient doubt this was a TIA ? anxiety driven appears at baseline doubt seziure but possible cont topamax 200BID FU EGG recent MRI (-) can DC home and FU Outpt DR NAVARRO
--- NOTE | 2018-04-12 13:29 | PN ---
Teaching Attending Note Name of Resident: Jair Benson ATTENDING PHYSICIAN STATEMENT I saw and evaluated the patient. I reviewed the resident's note and discussed the case with the resident. I agree with the resident's findings and plan as documented. SUBJECTIVE: Patient is a 52 y/o female with PMHx of DM, CVA(2014), HTN, HLD, seizure disorder, MARILU, asthma, severe anxiety/depression presents to the ED after a syncopal episode at home. Patient states all she remembers about the episode was that she was in her bathtub and then the next thing she knew, her granddaughter and home health aid were helping her move to the bedroom to come to the hospital. No further seizure, no syncopal episode. No shortness of breath , patient has anxiety disorder. OBJECTIVE: Vital Signs Temperature 98 F 04/12/18 08:48 Pulse Rate 90 04/12/18 08:48 Respiratory Rate 18 04/12/18 08:48 Blood Pressure 152/90 04/12/18 08:48 O2 Sat by Pulse Oximetry (%) 97 04/12/18 08:45 CBCD WBC 8.0 K/mm3 (4.0-10.0) 04/12/18 05:30 RBC 4.65 M/mm3 (3.60-5.2) 04/12/18 05:30 Hgb 11.8 GM/dL (10.7-15.3) 04/12/18 05:30 Hct 36.1 % (32.4-45.2) 04/12/18 05:30 MCV 77.6 fl (80-96) L 04/12/18 05:30 MCHC 32.6 g/dl (32.0-36.0) 04/12/18 05:30 RDW 15.5 % (11.6-15.6) 04/12/18 05:30 Plt Count 201 K/MM3 (134-434) D 04/12/18 05:30 MPV 9.4 fl (7.5-11.1) 04/12/18 05:30 CMP Sodium 136 mmol/L (136-145) 04/12/18 05:30 Potassium 3.7 mmol/L (3.5-5.1) 04/12/18 05:30 Chloride 99 mmol/L (98-107) 04/12/18 05:30 Carbon Dioxide 27 mmol/L (21-32) 04/12/18 05:30 Anion Gap 10 MMOL/L (8-16) 04/12/18 05:30 BUN 14 mg/dL (7-18) 04/12/18 05:30 Creatinine 0.9 mg/dL (0.55-1.02) 04/12/18 05:30 Creat Clearance w eGFR > 60 (>60) 04/12/18 05:30 Random Glucose 287 mg/dL (74-106) H 04/12/18 05:30 Calcium 8.4 mg/dL (8.5-10.1) L 04/12/18 05:30 Total Bilirubin 0.3 mg/dL (0.2-1.0) 04/12/18 05:30 AST 16 U/L (15-37) 04/12/18 05:30 ALT 16 U/L (13-61) 04/12/18 05:30 Alkaline Phosphatase 73 U/L (45-117) 04/12/18 05:30 Total Protein 6.9 g/dl (6.4-8.2) 04/12/18 05:30 Albumin 3.3 g/dl (3.4-5.0) L 04/12/18 05:30 CARDIAC ENZYMES Creatine Kinase 109 IU/L (26-192) 04/11/18 21:41 Troponin I < 0.02 ng/ml (0.00-0.05) 04/11/18 21:41 Current Medications Generic Name Dose Route Start Last Admin Trade Name Freq PRN Reason Stop Dose Admin Acetaminophen 325 mg 04/12/18 01:06 Tylenol - PO Q12H PRN PAIN LEVEL 7 - 10 Albuterol/Ipratropium 1 amp 04/12/18 08:00 04/12/18 11:47 Duoneb - NEB Not Given RQID SHAUN Aspirin 81 mg 04/12/18 13:00 Asa - PO DAILY SHAUN Atorvastatin Calcium 80 mg 04/12/18 22:00 Lipitor - PO HS [facility] Enoxaparin Sodium 40 mg 04/12/18 10:00 04/12/18 09:13 Lovenox - SQ 40 mg DAILY SHAUN Administration Fluoxetine HCl 40 mg 04/12/18 10:00 04/12/18 09:13 Prozac - PO 40 mg DAILY SHAUN Administration Sodium Chloride 1,000 mls @ 42 mls/hr 04/11/18 21:30 04/11/18 22:08 Normal Saline - IV 42 mls/hr ASDIR SHAUN Administration Insulin Aspart 1 vial 04/12/18 07:00 04/12/18 12:14 Novolog Vial Sliding Scale - SQ 4 units ACHS SHAUN Administration Protocol Levothyroxine Sodium 50 mcg 04/12/18 07:00 04/12/18 06:37 Synthroid - PO 50 mcg DAILY@0700 SHAUN Administration Oxycodone HCl 5 mg 04/12/18 01:05 Roxicodone - PO Q12H PRN PAIN LEVEL 7 - 10 Tiotropium [place] 2 puff 04/12/18 10:00 04/12/18 09:14 Spiriva Respimat IH 2 puff DAILY SHAUN Administration Topiramate 200 mg 04/12/18 12:47 Topamax - PO BID [facility] Home Medications Medication Instructions Recorded Fluoxetine HCl [Prozac -] 40 mg PO DAILY 09/15/14 [place]-3 Fatty Acids [[place]-3] 1,000 mg PO BID 09/15/14 Albuterol Sulfate Inhaler - 1 - 2 inh PO QID 03/15/16 [Ventolin HFA Inhaler -] Liraglutide [Victoza -] 1.8 mg SQ DAILY@1200 03/15/17 clonazePAM [Klonopin -] 0.5 mg PO DAILY PRN 05/12/17 Aspirin 81 mg PO DAILY 08/15/17 Levothyroxine [Synthroid -] 50 mcg PO DAILY 08/15/17 Atorvastatin Ca [Lipitor] 20 mg PO HS 09/09/17 Tiotropium [place] [Spiriva] 1 inh PO DAILY 09/09/17 Loratadine [Claritin] 10 mg PO DAILY 09/11/17 Albuterol 2.5/Ipratropium 0.5 1 amp NEB RQID #120 amp 10/31/17 [Duoneb -] Insulin (Novolog) [Novolog Flexpen 0 units SQ BIDAC 11/30/17 -] Insulin Glargine,Hum.rec.anlog 50 unit SQ DAILY 11/30/17 [Lantus Solostar] Lisinopril 5 mg PO DAILY 12/08/17 Docusate Sodium [Colace] 100 mg PO BID #60 capsule 12/10/17 Ferrous Sulfate [Feosol] 325 mg PO BID #60 tablet 12/10/17 Topiramate [Topamax -] 200 mg PO BID #60 tablet 12/10/17 Cholecalciferol (Vitamin D3) 50,000 unit PO WEEKLY #4 capsule 03/09/18 [D3-50] Diclofenac Sodium [Voltaren] 2 gm TP TID PRN #3 tube 03/09/18 Topiramate [Topamax] 125 mg PO BID #60 tab 04/01/18 Furosemide [Lasix -] 40 mg PO DAILY 04/06/18 Hydrocodone/Acetaminophen [[place] 1 each PO BID PRN #60 tablet MDD 2 04/06/18 10-325 Tablet] Sitagliptin Phos/Metformin HCl 1 each PO DAILY 04/11/18 [Janumet Xr 50-500 mg Tablet] PE: patient is able to use bothe extremities LUE: 4/5 , RUE 5/5. LE ASSESSMENT AND PLAN: Patient is a 52 y/o female with PMHx of DM, CVA(2014), HTN, HLD, seizure disorder, MARILU, asthma, severe anxiety/depression presents to the ED after a syncopal episode at home. Patient states all she remembers about the episode was that she was in her bathtub and then the next thing she knew, her granddaughter and home health aid were helping her move to the bedroom to come to the hospital. No further seizure, no syncopal episode. No shortness of breath , patient has anxiety disorder. # left sided weakness -transient most likely back to her baseline. Most likely anxiety driven, doubt seziure but possible cont topamax 200BID , FU EGG , recent MRI (-) can DC home and FU Outpt with Dr. Wagner
--- NOTE | 2018-04-12 14:32 | PN ---
Physical Exam: SUBJECTIVE: Patient seen and examined at bedside this morning. She admits left sided upper and lower extremity weakness, with sensory deficit after losing consciousness yesterday. Discussed with daughter over the phone who describes the patient was sitting in bathtub when she lost consciousness. After regaining consciousness, she began shaking, speaking unclearly and was confused. No urinary or fecal incontinence. OBJECTIVE: Vital Signs Period Temp Pulse Resp BP Sys/Giron Pulse Ox Last 24 Hr 98 F-98.7 F 88-107 18-20 95-152/53-90 95-97 GENERAL: The patient is awake, alert, and fully oriented, in no acute distress. HEAD: Normocephalic atraumatic. EYES: PERRL, extraocular movements intact, sclera anicteric, conjunctiva clear. ENT: Oropharynx clear without exudates, moist mucous membranes. NECK: Supple without lymphadenopathy LUNGS: Breath sounds equal, clear to auscultation bilaterally, no wheezes, no crackles, no accessory muscle use. HEART: Regular rate and rhythm, S1, S2 without murmur, rub or gallop. ABDOMEN: Obese abdomen. Soft, nontender, normoactive bowel sounds, no guarding, no rebound, no hepatosplenomegaly. EXTREMITIES: 2+ pulses, warm, well-perfused, no edema. NEUROLOGICAL: Strength in right upper and lower extremity 5/5 in flexion, extension, abduction and adduction. Strength left upper and lower extremity 3/5 in flexion, extension, abduction and adduction. Sensation diminished on left side compared to right side in left V1-V3 distribution, left upper extremity, left lower extremity. PSYCH: Appropriate mood and affect upon my exam today. SKIN: No rashes or lesions noted. Laboratory Results - last 24 hr 04/11/18 04/11/18 04/11/18 21:33 21:41 21:41 WBC 9.7 RBC 5.03 Hgb 12.9 Hct 39.0 MCV 77.6 L MCH 25.6 L MCHC 33.0 RDW 15.2 Plt Count 253 MPV 9.3 Absolute Neuts (auto) 6.5 Neutrophils % 66.7 Lymphocytes % 23.5 Monocytes % 6.2 Eosinophils % 3.2 Basophils % 0.4 Nucleated RBC % 0 PT with INR 11.70 INR 1.04 Sodium Potassium Chloride Carbon Dioxide Anion Gap BUN Creatinine Creat Clearance w eGFR POC Glucometer [phone] Random Glucose Hemoglobin A1c % Calcium Phosphorus Magnesium Total Bilirubin AST ALT Alkaline Phosphatase Creatine Kinase Troponin I Total Protein Albumin Triglycerides Cholesterol Total LDL Cholesterol HDL Cholesterol Urine Color Urine Appearance Urine pH Ur Specific [place] Urine Protein Urine Glucose (UA) Urine Ketones Urine Blood Urine Nitrite Urine Bilirubin Urine Urobilinogen Ur Leukocyte Esterase Blood Type Antibody Screen 04/11/18 04/11/18 04/12/18 21:41 21:41 01:29 WBC RBC Hgb Hct MCV MCH MCHC RDW Plt Count MPV Absolute Neuts (auto) Neutrophils % Lymphocytes % Monocytes % Eosinophils % Basophils % Nucleated RBC % PT with INR INR Sodium 139 Potassium 3.7 Chloride 99 Carbon Dioxide 31 Anion Gap 9 BUN 12 Creatinine 0.9 Creat Clearance w eGFR > 60 POC Glucometer Random Glucose 223 H Hemoglobin A1c % Calcium 9.0 Phosphorus Magnesium Total Bilirubin 0.3 AST 19 ALT 19 Alkaline Phosphatase 81 Creatine Kinase 109 Troponin I < 0.02 Total Protein 7.8 Albumin 3.7 Triglycerides 313 H Cholesterol 142 Total LDL Cholesterol 96 HDL Cholesterol 30 L Urine Color Ltyellow Urine Appearance Clear Urine pH 7.0 Ur Specific [place] 1.011 Urine Protein Negative Urine Glucose (UA) Negative Urine Ketones Negative Urine Blood Negative Urine Nitrite Negative Urine Bilirubin Negative Urine Urobilinogen Negative Ur Leukocyte Esterase Negative Blood Type O POSITIVE Antibody Screen Negative 04/12/18 04/12/18 04/12/18 05:30 05:30 05:30 WBC 8.0 RBC 4.65 Hgb 11.8 Hct 36.1 MCV 77.6 L MCH 25.3 L MCHC 32.6 RDW 15.5 Plt Count 201 D MPV 9.4 Absolute Neuts (auto) 4.8 Neutrophils % 59.7 Lymphocytes % 29.7 D Monocytes % 7.0 Eosinophils % 3.1 Basophils % 0.5 Nucleated RBC % 0 PT with INR INR Sodium 136 Potassium 3.7 Chloride 99 Carbon Dioxide 27 Anion Gap 10 BUN 14 Creatinine 0.9 Creat Clearance w eGFR > 60 POC Glucometer Random Glucose 287 H Hemoglobin A1c % 8.6 H Calcium 8.4 L Phosphorus 4.2 Magnesium 1.7 L Total Bilirubin 0.3 AST 16 ALT 16 Alkaline Phosphatase 73 Creatine Kinase Troponin I Total Protein 6.9 Albumin 3.3 L Triglycerides Cholesterol Total LDL Cholesterol HDL Cholesterol Urine Color Urine Appearance Urine pH Ur Specific [place] Urine Protein Urine Glucose (UA) Urine Ketones Urine Blood Urine Nitrite Urine Bilirubin Urine Urobilinogen Ur Leukocyte Esterase Blood Type Antibody Screen 04/12/18 04/12/18 06:33 12:08 WBC RBC Hgb Hct MCV MCH MCHC RDW Plt Count MPV Absolute Neuts (auto) Neutrophils % Lymphocytes % Monocytes % Eosinophils % Basophils % Nucleated RBC % PT with INR INR Sodium Potassium Chloride Carbon Dioxide Anion Gap BUN Creatinine Creat Clearance w eGFR POC Glucometer 304 239 Random Glucose Hemoglobin A1c % Calcium Phosphorus Magnesium Total Bilirubin AST ALT Alkaline Phosphatase Creatine Kinase Troponin I Total Protein Albumin Triglycerides Cholesterol Total LDL Cholesterol HDL Cholesterol Urine Color Urine Appearance Urine pH Ur Specific [place] Urine Protein Urine Glucose (UA) Urine Ketones Urine Blood Urine Nitrite Urine Bilirubin Urine Urobilinogen Ur Leukocyte Esterase Blood Type Antibody Screen Active Medications Generic Name Dose Route Start Last Admin Trade Name Freq PRN Reason Stop Dose Admin Acetaminophen 325 mg 04/12/18 01:06 Tylenol - PO Q12H PRN PAIN LEVEL 7 - 10 Albuterol/Ipratropium 1 amp 04/12/18 08:00 04/12/18 11:47 Duoneb - NEB Not Given RQID [facility] Aspirin 81 mg 04/12/18 13:00 Asa - PO DAILY [facility] Atorvastatin Calcium 80 mg 04/12/18 22:00 Lipitor - PO HS [facility] Enoxaparin Sodium 40 mg 04/12/18 10:00 04/12/18 09:13 Lovenox - SQ 40 mg DAILY SHAUN Administration Fluoxetine HCl 40 mg 04/12/18 10:00 04/12/18 09:13 Prozac - PO 40 mg DAILY SHAUN Administration Sodium Chloride 1,000 mls @ 42 mls/hr 04/11/18 21:30 04/11/18 22:08 Normal Saline - IV 42 mls/hr ASDIR [facility] Administration Insulin Aspart 1 vial 04/12/18 07:00 04/12/18 12:14 Novolog Vial Sliding Scale - SQ 4 units ACHS SHAUN Administration Protocol Levothyroxine Sodium 50 mcg 04/12/18 07:00 04/12/18 06:37 Synthroid - PO 50 mcg DAILY@0700 SHAUN Administration Lisinopril 5 mg 04/12/18 14:00 Prinivil PO DAILY SHAUN Oxycodone HCl 5 mg 04/12/18 01:05 Roxicodone - PO Q12H PRN PAIN LEVEL 7 - 10 Tiotropium [place] 2 puff 04/12/18 10:00 04/12/18 09:14 Spiriva Respimat IH 2 puff DAILY SHAUN Administration Topiramate 200 mg 04/12/18 12:47 Topamax - PO BID SHAUN Imaging: CT head noncontrast: ASSESSMENT/PLAN: Patient is a 41 year old female with history of CVA in 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 Syncopal episode -Likely secondary to seizure as described by daughter. Patient experienced tremors and post-ictal state. -CT head negative for intracranial hemorrhage -Patient has had multiple MRI for prior occurrence of similar presentation. Most recent MRI from 10/2017 was negative for infarct. -Neurology consult appreciated: Topiramate changed to 200mg PO BID. -F/U carotid doppler -Fall precautions -Seizure precautions -Aspirin 81mg PO QD Diabetes Mellitus -Hold oral home medications -Insulin sliding scale -Blood glucose monitoring ACHS Hyperlipidemia -Lipitor increased to 80mg PO QD Hypertension -Lisinopril 5mg PO QD Asthma, COPD -Duonebs QID -Tiotropium 2 puffs QD Anxiety, Depression -Prozac 40mg QD Hypothyroidism -Synthroid 50mcg QD FEN IVNS 42mL/Hr Mg repleted with 2gm IV. Will follow CMP Sodium controlled, diabetic diet Prophylaxis Lovenox 40mg SQ QD Disposition Continue observation in Telemetry floor.
[2018-04-12] MEDS ORDERED: LISINOPRIL 5 MG TABLET (FP) PO SCH (14:45)
[2018-04-12] MEDS ORDERED: ASPIRIN 81 MG CHEWABLE TABLETS PO SCH (14:45)
--- NOTE | 2018-04-12 15:01 | ECHO ---
Name: SAMEERA JUNIOR Exam:Adult Echocardiogram Study Date: 04/12/2018 10:51 AM Age: 52 yrs Reason For Study: cva Height: 53 in Weight: 244 lb BSA: 1.9 m2 MMode/2D Measurements & Calculations IVSd: 1.3 cm Ao root diam: 2.9 cm LVIDd: 5.0 cm LA dimension: 3.1 cm LVIDs: 2.8 cm LVPWd: 1.2 cm LVPWs: 1.8 cm EDV(Teich): 116.9 ml ESV(Teich): 28.9 ml RV S Jeff: 14.8 cm/sec Doppler Measurements & Calculations MV E max jeff: 67.9 cm/sec Ao V2 max: 112.0 cm/sec MV A max jeff: 70.3 cm/sec Ao max P.0 mmHg MV E/A: 0.97 MV dec time: 0.16 sec LV V1 max P.5 mmHg PA V2 max: 101.8 cm/sec LV V1 max: 61.1 cm/sec PA max P.1 mmHg Med Peak E' Jeff: 7.7 cm/sec Med E/e': 8.8 Lat Peak E' Jeff: 6.9 cm/sec Lat E/e': 9.9 Procedure A complete two-dimensional transthoracic echocardiogram was performed (2D, M-mode, Doppler and color flow Doppler). The study was technically difficult with many images being suboptimal in quality. Left Ventricle There is mild concentric left ventricular hypertrophy. Ejection Fraction = 55-60%. The left ventricul ar ejection fraction is normal. Left Ventricular Filling pattern is normal for age. No regional wall mot ion abnormalities noted. Regional wall motion abnormalities cannot be excluded due to limited visualizati on. Right Ventricle The right ventricle is grossly normal size. The right ventricular systolic function is grossly normal . Atria Normal left and right atrial size and function. Mitral Valve There is no mitral regurgitation noted. Tricuspid Valve There is trace tricuspid regurgitation. There was insufficient TR detected to calculate RV systolic p ressure. Aortic Valve No hemodynamically significant valvular aortic stenosis. No aortic regurgitation is present. Pulmonic Valve The pulmonic valve is not well visualized. Great Vessels The aortic root is normal size. Pericardium/Pleura There is no pericardial effusion. Interpretation Summary The study was technically difficult. There is mild concentric left ventricular hypertrophy. The left ventricular ejection fraction is normal. The right ventricle is grossly normal size. The right ventricular systolic function is grossly normal. There is trace tricuspid regurgitation. MD Adan Abdalla 04/12/2018 03:00 PM
[2018-04-12 15:27] VITALS: BP 159/91; PULSE 93; TEMP 98
--- NOTE | 2018-04-12 15:39 | EKG ---
Test Reason : Blood Pressure : / mmHG Vent. Rate : 107 BPM Atrial Rate : 107 BPM P-R Int : 152 ms QRS Dur : 088 ms QT Int : 378 ms P-R-T Axes : 056 -44 068 degrees QTc Int : 504 ms SINUS TACHYCARDIA LEFT AXIS DEVIATION MINIMAL VOLTAGE CRITERIA FOR LVH, MAY BE NORMAL VARIANT ABNORMAL ECG WHEN COMPARED WITH ECG OF 01-APR-2018 18:50, NO SIGNIFICANT CHANGE WAS FOUND Confirmed by LUCIE MENDOZA, LESLI ([id number]) on 04/12/2018 3:38:37 PM Referred By: Confirmed By:LESLI FAULKNER MD
--- NOTE | 2018-04-12 16:10 | DS ---
Physical Exam: SUBJECTIVE: Patient seen and examined at bedside this morning. She admits left sided upper and lower extremity weakness, with sensory deficit after losing consciousness yesterday. Discussed with daughter over the phone who describes the patient was sitting in bathtub when she lost consciousness. After regaining consciousness, she began shaking, speaking unclearly and was confused, which has since resolved. No urinary or fecal incontinence. OBJECTIVE: Vital Signs Period Temp Pulse Resp BP Sys/Giron Pulse Ox Last 24 Hr 98 F-98.7 F 88-107 18-20 95-159/53-91 95-97 PHYSICAL EXAM GENERAL: The patient is awake, alert, and fully oriented, in no acute distress. HEAD: Normocephalic atraumatic. EYES: PERRL, extraocular movements intact, sclera anicteric, conjunctiva clear. ENT: Oropharynx clear without exudates, moist mucous membranes. NECK: Supple without lymphadenopathy LUNGS: Breath sounds equal, clear to auscultation bilaterally, no wheezes, no crackles, no accessory muscle use. HEART: Regular rate and rhythm, S1, S2 without murmur, rub or gallop. ABDOMEN: Obese abdomen. Soft, nontender, normoactive bowel sounds, no guarding, no rebound, no hepatosplenomegaly. EXTREMITIES: 2+ pulses, warm, well-perfused, no edema. NEUROLOGICAL: Strength in right upper and lower extremity 5/5 in flexion, extension, abduction and adduction. Strength left upper and lower extremity 4/5 in flexion, extension, abduction and adduction. Sensation diminished on left side compared to right side in left upper extremity, left lower extremity. PSYCH: Appropriate mood and affect upon my exam today. SKIN: No rashes or lesions noted. LABS Laboratory Results - last 24 hr 04/11/18 04/11/18 04/11/18 21:33 21:41 21:41 WBC 9.7 RBC 5.03 Hgb 12.9 Hct 39.0 MCV 77.6 L MCH 25.6 L MCHC 33.0 RDW 15.2 Plt Count 253 MPV 9.3 Absolute Neuts (auto) 6.5 Neutrophils % 66.7 Lymphocytes % 23.5 Monocytes % 6.2 Eosinophils % 3.2 Basophils % 0.4 Nucleated RBC % 0 PT with INR 11.70 INR 1.04 Sodium Potassium Chloride Carbon Dioxide Anion Gap BUN Creatinine Creat Clearance w eGFR POC Glucometer [phone] Random Glucose Hemoglobin A1c % Calcium Phosphorus Magnesium Total Bilirubin AST ALT Alkaline Phosphatase Creatine Kinase Troponin I Total Protein Albumin Triglycerides Cholesterol Total LDL Cholesterol HDL Cholesterol Urine Color Urine Appearance Urine pH Ur Specific [place] Urine Protein Urine Glucose (UA) Urine Ketones Urine Blood Urine Nitrite Urine Bilirubin Urine Urobilinogen Ur Leukocyte Esterase Blood Type Antibody Screen 04/11/18 04/11/18 04/12/18 21:41 21:41 01:29 WBC RBC Hgb Hct MCV MCH MCHC RDW Plt Count MPV Absolute Neuts (auto) Neutrophils % Lymphocytes % Monocytes % Eosinophils % Basophils % Nucleated RBC % PT with INR INR Sodium 139 Potassium 3.7 Chloride 99 Carbon Dioxide 31 Anion Gap 9 BUN 12 Creatinine 0.9 Creat Clearance w eGFR > 60 POC Glucometer Random Glucose 223 H Hemoglobin A1c % Calcium 9.0 Phosphorus Magnesium Total Bilirubin 0.3 AST 19 ALT 19 Alkaline Phosphatase 81 Creatine Kinase 109 Troponin I < 0.02 Total Protein 7.8 Albumin 3.7 Triglycerides 313 H Cholesterol 142 Total LDL Cholesterol 96 HDL Cholesterol 30 L Urine Color Ltyellow Urine Appearance Clear Urine pH 7.0 Ur Specific [place] 1.011 Urine Protein Negative Urine Glucose (UA) Negative Urine Ketones Negative Urine Blood Negative Urine Nitrite Negative Urine Bilirubin Negative Urine Urobilinogen Negative Ur Leukocyte Esterase Negative Blood Type O POSITIVE Antibody Screen Negative 04/12/18 04/12/18 04/12/18 05:30 05:30 05:30 WBC 8.0 RBC 4.65 Hgb 11.8 Hct 36.1 MCV 77.6 L MCH 25.3 L MCHC 32.6 RDW 15.5 Plt Count 201 D MPV 9.4 Absolute Neuts (auto) 4.8 Neutrophils % 59.7 Lymphocytes % 29.7 D Monocytes % 7.0 Eosinophils % 3.1 Basophils % 0.5 Nucleated RBC % 0 PT with INR INR Sodium 136 Potassium 3.7 Chloride 99 Carbon Dioxide 27 Anion Gap 10 BUN 14 Creatinine 0.9 Creat Clearance w eGFR > 60 POC Glucometer Random Glucose 287 H Hemoglobin A1c % 8.6 H Calcium 8.4 L Phosphorus 4.2 Magnesium 1.7 L Total Bilirubin 0.3 AST 16 ALT 16 Alkaline Phosphatase 73 Creatine Kinase Troponin I Total Protein 6.9 Albumin 3.3 L Triglycerides Cholesterol Total LDL Cholesterol HDL Cholesterol Urine Color Urine Appearance Urine pH Ur Specific [place] Urine Protein Urine Glucose (UA) Urine Ketones Urine Blood Urine Nitrite Urine Bilirubin Urine Urobilinogen Ur Leukocyte Esterase Blood Type Antibody Screen 04/12/18 04/12/18 06:33 12:08 WBC RBC Hgb Hct MCV MCH MCHC RDW Plt Count MPV Absolute Neuts (auto) Neutrophils % Lymphocytes % Monocytes % Eosinophils % Basophils % Nucleated RBC % PT with INR INR Sodium Potassium Chloride Carbon Dioxide Anion Gap BUN Creatinine Creat Clearance w eGFR POC Glucometer 304 239 Random Glucose Hemoglobin A1c % Calcium Phosphorus Magnesium Total Bilirubin AST ALT Alkaline Phosphatase Creatine Kinase Troponin I Total Protein Albumin Triglycerides Cholesterol Total LDL Cholesterol HDL Cholesterol Urine Color Urine Appearance Urine pH Ur Specific [place] Urine Protein Urine Glucose (UA) Urine Ketones Urine Blood Urine Nitrite Urine Bilirubin Urine Urobilinogen Ur Leukocyte Esterase Blood Type Antibody Screen HOSPITAL COURSE: Date of Admission:04/11/18 Date of Discharge: 04/12/18 Patient is a 41 year old female with history of CVA in 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 CT head showed no intra-cranial pathology and no intra-cranial bleeding. Patient has had multiple MRI for prior occurrence of similar presentation. Most recent MRI from 10/2017 was negative for infarct. Neurology consult discussed increasing Topamax to 200mg PO BID. Doubtful for TIA, possibly anxiety related. To follow up outpatient. She was discharged with Topamax increased to 200mg PO BID, and reinstated her home medications. She was instructed to follow up with PCP and Neurology within one week of discharge. Minutes to complete discharge: 35 Discharge Summary Reason For Visit: SYNCOPE/LEFT SIDED WEAKNESS/HX OF STROKE Current Active Problems Left-sided muscle weakness (Acute) Syncope (Acute) Condition: Improved - Instructions Diet, Activity, Other Instructions: You were admitted for loss of consciousness. You had a CAT scan which showed no bleeding or masses in the brain. You are being discharged on a new dosage of your anti-seizure medication Topamax to 200mg twice a day. Continue taking your home medications as directed. It is important that you follow up with your primary care physician Dr. Craft within one week of discharge. It is important to follow up with the Neurologist Dr. Wagner within one week of discharge. Please return to the nearest Emergency Department if you experience fevers, chills, shortness of breath, chest pain, palpitations, any falls or loss of consciousness. Referrals: Jhonathan Wagner DO [Staff Physician] - 1 Week Laura Craft MD [Primary Care Provider] - 1 Week Disposition: HOME - Home Medications Comprehensive Discharge Medication List: Ambulatory Orders Fluoxetine HCl [Prozac -] 40 mg PO DAILY 09/15/14 [place]-3 Fatty Acids [[place]-3] 1,000 mg PO BID 09/15/14 Albuterol Sulfate Inhaler - [Ventolin HFA Inhaler -] 1 - 2 inh PO QID 03/15/16 Liraglutide [Victoza -] 1.8 mg SQ DAILY@1200 03/15/17 clonazePAM [Klonopin -] 0.5 mg PO DAILY PRN 05/12/17 Aspirin 81 mg PO DAILY 08/15/17 Levothyroxine [Synthroid -] 50 mcg PO DAILY 08/15/17 Atorvastatin Ca [Lipitor] 20 mg PO HS 09/09/17 Tiotropium [place] [Spiriva] 1 inh PO DAILY 09/09/17 Loratadine [Claritin] 10 mg PO DAILY 09/11/17 Albuterol 2.5/Ipratropium 0.5 [Duoneb -] 1 amp NEB RQID #120 amp 10/31/17 Insulin (Novolog) [Novolog Flexpen -] 85 units SQ TID 11/30/17 Insulin Glargine,Hum.rec.anlog [Lantus Solostar] 50 unit SQ DAILY 11/30/17 Lisinopril 5 mg PO DAILY 12/08/17 Docusate Sodium [Colace] 100 mg PO BID #60 capsule 12/10/17 Ferrous Sulfate [Feosol] 325 mg PO BID #60 tablet 12/10/17 Cholecalciferol (Vitamin D3) [D3-50] 50,000 unit PO WEEKLY #4 capsule 03/09/18 Diclofenac Sodium [Voltaren] 2 gm TP TID PRN #3 tube 03/09/18 Furosemide [Lasix -] 40 mg PO DAILY 04/06/18 Hydrocodone/Acetaminophen [[place] 10-325 Tablet] 1 each PO BID PRN #60 tablet MDD 2 04/06/18 Sitagliptin Phos/Metformin HCl [Janumet Xr 50-500 mg Tablet] 1 each PO DAILY 07/17 Calcium Carbonate/Vitamin D3 [Calcium 500 mg Chewable Tablet] 500 mg PO DAILY Montelukast Sodium [Singulair] 10 mg PO DAILY 04/12/18 Topiramate [Topamax -] 200 mg PO BID #60 tablet 04/12/18 Zolpidem Tartrate [Ambien] 10 mg PO HS 04/12/18 This patient is new to me today: Yes Date on this admission: 04/12/18 Emergency Visit: Yes ED Registration Date: 04/11/18 Care time: The patient presented to the Emergency Department on the above date and was hospitalized for further evaluation of their emergent condition. Critical Care patient: No - Discharge Referral Referred to [facility] No
[2018-04-12] MEDS ORDERED: ATORVASTATIN CA 80 MG TABLET (FP) PO SCH (22:00)
== END 2018-04-12 19:17 | disposition home or self-care (01) ==
LOC: JER 17:54 → JERBED 22:57 → UNDOADMOB 04-12 00:01 → JERBED 04-12 00:01 → J4W 04-12 02:58 → JERBED 04-12 02:58
PROVIDERS: ADMIT Internal Medicine; ATTEND Internal Medicine
PROC: 3E033GC Introduction of Other Therapeutic Substance into Peripheral Vein, Percutaneous Approach (ICD-10-PCS; principal; 2018-04-11)
PROC: 3E0337Z Introduction of Electrolytic and Water Balance Substance into Peripheral Vein, Percutaneous Approach (ICD-10-PCS; 2018-04-11)
PROC: 3E013VG Introduction of Insulin into Subcutaneous Tissue, Percutaneous Approach (ICD-10-PCS; 2018-04-11)
PROC: 3E013GC Introduction of Other Therapeutic Substance into Subcutaneous Tissue, Percutaneous Approach (ICD-10-PCS; 2018-04-11)
PROC: 3E0F7GC Introduction of Other Therapeutic Substance into Respiratory Tract, Via Natural or Artificial Opening (ICD-10-PCS; 2018-04-11)
DX: R55 Syncope and collapse (principal); M62.81 Muscle weakness (generalized); I10 Essential (primary) hypertension; E11.9 Type 2 diabetes mellitus without complications; G40.909 Epilepsy, unspecified, not intractable, without status epilepticus; E78.5 Hyperlipidemia, unspecified; F41.9 Anxiety disorder, unspecified; F32.9 Major depressive disorder, single episode, unspecified; G47.30 Sleep apnea, unspecified; J45.909 Unspecified asthma, uncomplicated; J44.9 Chronic obstructive pulmonary disease, unspecified; I69.354 Hemiplegia and hemiparesis following cerebral infarction affecting left non-dominant side; B18.2 Chronic viral hepatitis C; E03.9 Hypothyroidism, unspecified; R00.0 Tachycardia, unspecified; E66.01 Morbid (severe) obesity due to excess calories; Z68.44 Body mass index [BMI] 60.0-69.9, adult; Z79.4 Long term (current) use of insulin; Z79.82 Long term (current) use of aspirin; Z88.1 Allergy status to other antibiotic agents; Z91.041 Radiographic dye allergy status; Z87.891 Personal history of nicotine dependence
CPT/HCPCS: 36415; 70450-TC; 80053; 80201; 81003; 82465; 82550; 82962; 83036; 83718; 83721; 83735; 84100; 84478; 84484; 85025; 85610; 86850; 86900; 86901; 93005; 93010; 93306-TC; 93880-TC; 94640; 95816; 96372; 96374; 99283-25; G0378; J7030; J7620

== ENCOUNTER 2018-05-19 14:05 | Observation (INO) | payer OTHER ==
--- NOTE | 2018-05-19 14:33 | PDOC ---
History of Present Illness - General Stated Complaint: SYNCOPE Time Seen by Provider: 05/19/18 14:25 - History of Present Illness Initial Comments: 05/19/18 14:29 52 yo F with h/o HTN, DM, Hep C, CVA (2015), Seizure disorder, MARILU, depression, anxiety who p/w syncope. Patient reports riding her scooter to apartment building and standing up to open door, with sudden onset of LOC. Patient home health aide at bedside. She reports feeling left sided chest pressure, and SOB, then falling sideways onto ground. States that the fall was partially witnessed by her daughter, who later arrived to assist patient. Pt. daughter reports to pt. that she saw her on ground convulsing, for 3-5 minutes while unconscious. Without urinary incontinence, tongue biting. Patient states that chest pain lasted another 5 minutes after she regained consciousness. Patient also endorses being sad for three days following cremation of her father. She states that she wants to "cut herself," and does not want to live. She does not know if she feels safe at home, and now reports the feeling that she wants to cut her throat with something sharp. Endorses h/o SI, but no prior suicide attempt. Patient with h/o recurrent syncope. Last seen [facility] syncope (04/04/18). Negative carotid dopplers, CTH. Was believed to likely be anxiety driven, in setting of multiple syncopal events with multiple neg workup. Patient denies N/V, F,C, CP, SOB, urinary complaints, abdominal pain, diarrhea, constipation, lightheadedness, halluciations, sensory changes. PMHx: as noted above ROS: as noted Allergies: Iodinated contrast, Azithromycin Past History - Past Medical History Allergies/Adverse Reactions: Allergies Allergy/AdvReac Type Severity Reaction Status Date / Time Iodinated Contrast- Oral and Allergy Intermediate Itching Verified 05/19/18 14: 35 IV Dye [Iodinated Contrast Media - IV Dye] azithromycin AdvReac Intermediate Itching Verified 05/19/18 14:35 Home Medications: Ambulatory Orders Fluoxetine HCl [Prozac -] 40 mg PO DAILY 09/15/14 [place]-3 Fatty Acids [[place]-3] 1,000 mg PO BID 09/15/14 Albuterol Sulfate Inhaler - [Ventolin HFA Inhaler -] 1 - 2 inh PO QID 03/15/16 Liraglutide [Victoza -] 1.8 mg SQ DAILY@1200 03/15/17 clonazePAM [Klonopin -] 0.5 mg PO DAILY PRN 05/12/17 Aspirin 81 mg PO DAILY 08/15/17 Levothyroxine [Synthroid -] 50 mcg PO DAILY 08/15/17 Atorvastatin Ca [Lipitor] 20 mg PO HS 09/09/17 Tiotropium [place] [Spiriva] 1 inh PO DAILY 09/09/17 Loratadine [Claritin] 10 mg PO DAILY 09/11/17 Albuterol 2.5/Ipratropium 0.5 [Duoneb -] 1 amp NEB RQID #120 amp 10/31/17 Insulin (Novolog) [Novolog Flexpen -] 85 units SQ TID 11/30/17 Insulin Glargine,Hum.rec.anlog [Lantus Solostar] 50 unit SQ DAILY 11/30/17 Lisinopril 5 mg PO DAILY 12/08/17 Docusate Sodium [Colace] 100 mg PO BID #60 capsule 12/10/17 Ferrous Sulfate [Feosol] 325 mg PO BID #60 tablet 12/10/17 Cholecalciferol (Vitamin D3) [D3-50] 50,000 unit PO WEEKLY #4 capsule 03/09/18 Diclofenac Sodium [Voltaren] 2 gm TP TID PRN #3 tube 03/09/18 Furosemide [Lasix -] 40 mg PO DAILY 04/06/18 Sitagliptin Phos/Metformin HCl [Janumet Xr 50-500 mg Tablet] 1 each PO DAILY 07/17 Calcium Carbonate/Vitamin D3 [Calcium 500 mg Chewable Tablet] 500 mg PO DAILY Montelukast Sodium [Singulair] 10 mg PO DAILY 04/12/18 Topiramate [Topamax -] 200 mg PO BID #60 tablet 04/12/18 Zolpidem Tartrate [Ambien] 10 mg PO HS 04/12/18 Hydrocodone/Acetaminophen [[place] 10-325 Tablet] 1 each PO BID PRN #60 tablet MDD 2 05/04/18 Asthma: Yes Cardiac Disorders: No 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) COPD: Yes CHF: Yes (DIASTOLIC) Dementia: No Diabetes: Yes (IDDM) GI Disorders: No Disorders: No HTN: Yes Hypercholesterolemia: Yes Liver Disease: Yes (hep C - treated) Psychiatric Problems: Yes Seizures: Yes Thyroid Disease: Yes (hypothyroid) - Surgical History Abdominal Surgery: Yes (UMBILICAL HERNIA) - Immunization History Immunization Up to Date: No - Suicide/Smoking/Psychosocial Hx Smoking History: Former smoker Have you smoked in the past 12 months: No If you are a former smoker, when did you quit?: 2014 'Breaking Loose' booklet given: 09/16/14 Hx Alcohol Use: No Drug/Substance Use Hx: No Substance Use Type: None Hx Substance Use Treatment: No Review of Systems - Review of Systems Comments:: 05/19/18 14:32 GENERAL/CONSTITUTIONAL: No fever or chills. No weakness. HEAD, EYES, EARS, NOSE AND THROAT: No change in vision. No ear pain or discharge. No sore throat. CARDIOVASCULAR: No chest pain or shortness of breath RESPIRATORY: No cough, wheezing, or hemoptysis. GASTROINTESTINAL: No nausea, vomiting, diarrhea or constipation. GENITOURINARY: No dysuria, frequency, or change in urination. MUSCULOSKELETAL: No joint or muscle swelling or pain. No neck or back pain. SKIN: No rash NEUROLOGIC: + Lightheadedness. No headache, vertigo, loss of consciousness, or change in strength ENDOCRINE: No increased thirst. No abnormal weight change HEMATOLOGIC/LYMPHATIC: No anemia, easy bleeding, or history of blood clots. ALLERGIC/IMMUNOLOGIC: No hives or skin allergy. *Physical Exam - Physical Exam Comments: 05/19/18 14:32 GENERAL: Awake, alert, and fully oriented, in no acute distress HEAD: No signs of trauma, normocephalic, atraumatic EYES: PERRLA, EOMI, sclera anicteric, conjunctiva clear ENT: Auricles normal inspection, hearing grossly normal, nares patent, oropharynx clear without exudates. Moist mucosa NECK: Normal ROM, supple, no lymphadenopathy, JVD, or masses LUNGS:Diminished at BL LL bases. No distress, speaks full sentences. HEART: Regular rate and rhythm, normal S1 and S2, no murmurs, rubs or gallops, peripheral pulses normal and equal bilaterally. ABDOMEN: Soft, nontender, normoactive bowel sounds. No guarding, no rebound. No masses EXTREMITIES : Normal inspection, Normal range of motion, no edema. No clubbing or cyanosis. NEUROLOGICAL: Cranial nerves II through XII grossly intact. Normal speech, normal gait, no focal sensorimotor deficits PSYCH: Memory intact. Normal affect, affect congruent with mood. No hallucinations. Normal speech. No dysarthria. SKIN: Warm, Dry, normal turgor, no rashes or lesions noted Heart Score/ECG Review - History History: Slightly suspicious - Electrocardiogram EKG: Non specific repolarization disturbance - Age Age: 45-65 - Risk Factors Risk Factors Heart Score: Yes Hx Hypercholesterolemia, Yes Hx Hypertension, Yes Hx Diabetes, Yes Smoking History, Yes Positive family hx of cardiac disease, Yes Hx Obesity Based on the list above the patient has:: >/=3 risk factors or Hx atherosclerotic disease - Troponin Troponin: </= normal limit - Score Heart Score - Total: 4 ED Treatment Course - LABORATORY CBC & Chemistry Diagram: 05/19/18 16:15 05/19/18 16:15 Medical Decision Making - Medical Decision Making 05/19/18 14:58 52 yo F with h/o HTN, DM, Hep C, CVA (2014), Seizure disorder, MARILU, depression, anxiety who p/w syncope. VSS, AF. No evidence of head trauma. No neruo deficits. Low suspicion intracranial hemorrhage, hematoma, skull fracture. Physical exam unremarkable. Will evaluate for VBI/TIA, cardiac dysarrtyhmias, hypovolemia, hypoglycemia, electrolyte abnml, metabolic and toxic derangements, acid-base disturbances, infection. Will refer to psych, patient with SI, and plan to harm. 05/19/18 15:06 ED Course: CBC, CMP, Cardiac Pr. BNP EKG, CXR UA, UCx. 05/19/18 15:[address] Laboy. States that he will come see pt. in ED. 05/19/18 17:26 CBC,CMP : Unremarkable GLU: 268 Trop: Neg EKG: NSR with LAD. Asbent KIANA, STD. Normal interval duration and axis. 05/19/18 17:27 UA: 3+ Blood, 2+ LE, 58 wbc, 53 rbc, neg nitrite 05/19/18 17:51 Rocephin 1 gm 05/19/18 18:[address] Benson. Accepted to med/surg [place] 05/19/18 18:[address] Laboy patient with longstanding depression. Patient cleared by [facility]. Patient stable for admission. *DC/Admit/Observation/Transfer Diagnosis at time of Disposition: Chest pain at rest Syncope Qualifiers: Encounter type: subsequent encounter - Discharge Dispostion Condition at time of disposition: Stable Decision to Admit order: Yes - Referrals - Patient Instructions Printed Discharge Instructions: DI for Syncope in Adults (Fainting) Additional Instructions: Please return to the emergency department with any new or worsening symptoms or concerns. Please follow up with your primary care physician within 72 hours. - Post Discharge Activity - Attestations Physician Attestion: 05/19/18 14:32 I attest to the information provided in this note.
[2018-05-19 14:35] VITALS: BMI 47.6
--- NOTE | 2018-05-19 16:08 | PDOC ---
Attending Attestation - Resident Resident Name: Lenin Angela - ED Attending Attestation I have performed the following: I have examined & evaluated the patient, The case was reviewed & discussed with the resident, I agree w/resident's findings & plan, Exceptions are as noted - HPI HPI: 05/19/18 16:02 52 F with h/o HTN, DM, Hep C, ?CVA 2015 though MRI negative, Seizure disorder, MARILU, depression, anxiety who presents to the ED with possible seizure and chest pain today. the patient reports that she was outside riding her scooter home and subsequently lost consciousness when she got to her door. she states that her daughter witnessed the event and told her she was shaking. Pt woke up shortly after and returned to baseline. Pt now complains of L sided chest pain going down her L arm. Denies SOB. Pt also reports suicidal ideations for the past 3 days. She states that she cremated her father recently and since then has been feeling suicidal, stating she "wants to cut her throat". Denies HI, denies AVH. - Physicial Exam PE: 05/19/18 16:17 "GENERAL: Awake, alert, and fully oriented, in no acute distress. HEAD: No signs of trauma EYES: PERRLA, EOMI, sclera anicteric, conjunctiva clear ENT: Auricles normal inspection, hearing grossly normal, nares patent, oropharynx clear without exudates. Moist mucosa NECK: Nontender, no stepoffs, Normal ROM, supple, no lymphadenopathy, JVD, or masses LUNGS: Breath sounds equal, clear to auscultation bilaterally. No wheezes, and no crackles HEART: Regular rate and rhythm, normal S1 and S2, no murmurs, rubs or gallops ABDOMEN: Soft, nontender, normoactive bowel sounds. No guarding, no rebound. No masses EXTREMITIES: Normal range of motion, no edema. No clubbing or cyanosis. No cords, erythema, or tenderness NEUROLOGICAL: Cranial nerves II through XII intact. 5/5 strength and sensation in all extremities, Normal speech, normal gait, normal cerebellar function SKIN: Warm, Dry, normal turgor, no rashes or lesions noted. - Medical Decision Making 05/19/18 16:17 52 F presenting with possible seizure and chest pain, also complaining of suicidal ideation. Pt's daughter reported seizure-like activity, but doubtful that this is real seizure. Pt did not have a post-ictal period, no tongue biting , no incontinence. Pt was previously admitted for seizure work up, neuro evaluation noted that pt's episodes were likely stress-related. Suspect psychogenic seizures vs syncope. Pt's chest pain is atypical but concerning for ACS given her cardiac risk factors. However, EKG is nonischemic. - Labs, trop - CT head - CXR - Psych consult for SI - 1:1 observation
[2018-05-19 16:35] LABS: BASO % 0.8 % (0-2.0); EOS % 4.8 % (0-4.5); HEMATOCRIT 34.5 % (32.4-45.2); HEMOGLOBIN 11.2 GM/dL (10.7-15.3); LYMPH % 25.1 % (8-40); MCHC 32.6 g/dl (32.0-36.0); MEAN CELL VOLUME 79.9 fl (80-96); MEAN PLT VOLUME 9.4 fl (7.5-11.1); MONO % 6.4 % (3.8-10.2); NEUT % 62.9 % (42.8-82.8); PLATELET COUNT 182 K/MM3 (134-434); RBC 4.32 M/mm3 (3.60-5.2); WHITE BLOOD COUNT 7.5 K/mm3 (4.0-10.0)
[2018-05-19 16:40] LABS: URINE APPEARANCE SLCLOUDY; URINE BILIRUBIN NEGATIVE (<2.0 mg/dL); URINE COLOR LTYELLOW; URINE GLUCOSE (UA) 3+ (NEGATIVE); URINE KETONE NEGATIVE (NEGATIVE); URINE LEUK ESTERASE 2+ (NEGATIVE); URINE NITRITE NEGATIVE (NEGATIVE); URINE PROTEIN 1+ (NEGATIVE); URINE UROBILINOGEN NEGATIVE mg/dL (0.2-1.0)
[2018-05-19 16:48] LABS: INR 1.01 (0.83-1.09); PROTHROMBIN TIME (PATIENT) 11.9 SEC (9.7-13.0)
[2018-05-19 16:50] LABS: EPI CELLS RARE /HPF (FEW)
[2018-05-19 16:57] LABS: ALBUMIN 3.1 g/dl (3.4-5.0); ALK PHOS 70 U/L (45-117); ANION GAP 8 MMOL/L (8-16); BILIRUBIN,TOTAL 0.2 mg/dL (0.2-1); BLOOD UREA NITROGEN 10 mg/dL (7-18); CALCIUM 8.3 mg/dL (8.5-10.1); CHLORIDE 104 mmol/L (98-107); CO2 25 mmol/L (21-32); CREATININE 0.8 mg/dL (0.55-1.3); GLUCOSE,RANDOM 268 mg/dL (74-106); POTASSIUM 4.1 mmol/L (3.5-5.1); SGOT/AST 17 U/L (15-37); SGPT/ALT 20 U/L (13-61); SODIUM 138 mmol/L (136-145); TOT PROT 6.6 g/dl (6.4-8.2)
[2018-05-19 16:59] LABS: N-TERMINAL BNP 96.2 pg/ml (5-125)
--- NOTE | 2018-05-19 18:30 | CON.PSY ---
Psychiatry Consult Chief Complaint: Patient known to me from previous admissions, lo0ng history of Chronic depressuion and chronic Medical problems. She reports feeling depressed after receiving hervFathersc ashes and felt suicidal but did notv act on them she feels muchn better and wants to go home. 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 She will see her Psychnext week. Symptoms: reports: Depressed Mood, Suicidality - Previous Psychiatric Treatment Outpatient: Less than 6 mos ago Inpatient: 2 or more prior admissions - Previous Substance Abuse Treatment Outpatient: None Inpatient: None - Reason for Previous Treatment Reason for Previous Treatment: Major Depression - Allergies Allergies: Allergies Allergy/AdvReac Type Severity Reaction Status Date / Time Iodinated Contrast- Oral and Allergy Intermediate Itching Verified 05/19/18 14: 35 IV Dye [Iodinated Contrast Media - IV Dye] azithromycin AdvReac Intermediate Itching Verified 05/19/18 14:35 - Current Living Status Usual Living Arrangement: Alone - Current Mental Status Evaluation Appearance: Well Groomed Attitude: Cooperative - Affect Affect: Full Range Appropriateness: Appropriate to Content - Mood Mood: Anxious - Speech/Language Expressive: Coherent - Psychomotor Activity Psychomotor Activity: Hyperactive - Thought Process Thought Process: Intact - Thought Content Hallucinations: Absent Delusions: Absent - Self Perception Self Perception: No Impairment - Cognition Attention: Alert Orientation: Time Memory, Immediate Recall: Intact Memory, Short Term: 3/3 Memory, Remote with Promptin/3 - Concentration Serial Sevens Intact: No Simple Calculations Intact: Yes - Abstraction Proverb Interpretation: Intact Judgement: Minimally Impaired - Insight Insight: Intact - Impulse Control Impulse Control: Minimally Impaired - Suicidal Ideation Suicidal Ideation: No Plan: none - Homicidal Ideation Homicidal Ideation: No Assessment/Plan 1) Patient is not acutely Suicidal at this time. @) Discharge when medically stable, 3) Folloow up at @) [facility] psychy clinic.
--- NOTE | 2018-05-19 19:24 | HP ---
CHIEF COMPLAINT: loss of consciousness PCP: HISTORY OF PRESENT ILLNESS: Patient is a 52 year old female with history of CVA in 2015, seizure disorder, hypertension, hyperlipidemia, diabetes mellitus, anxiety, depression, sleep apnea, asthma, COPD presents with complaint of loss of consciousness. Recently seen for similar occurrence one month ago. Occurred today as she got up from motorized scooter to open door to her house, felt dizzy, and fell. Admits that she was found by her daughter who lives with her, and was unconscious for 5-10 minutes. She endorses chest pain described as sharp and pressure-like that lasts for approx 5 minutes without clear palliative or provocative features. Chest pain does not radiate to arms, or back and is not associated with deep breaths. She endorsed one episode of vomiting, during this episode, however does not remember any blood or bile within the vomitus. Denies fecal or urinary incontinence, however was told that she was "shaking". Admits compliance with Topamax 200mg BID. She attributes these symptoms to stress and anxiety from a recent loss of her father who recent 05/11/2018. Upon my encounter patient states she "sometimes" feels suicidal ideation, however currently denies any suicidal or homicidal ideation. ER course was notable for: (1) EKG normal sinus rhythm at 89 BPM (2) CT chest, chest Xray (3) Recent Travel: PAST MEDICAL HISTORY: CVA in 2014, seizure disorder, hypertension, hyperlipidemia, diabetes mellitus, anxiety, depression, sleep apnea, asthma, COPD PAST SURGICAL HISTORY: Social History: Smoking: former smoker with 30 pack year history. Quit 03/2017 Alcohol: denies Drugs: denies Family History: Allergies Iodinated Contrast- Oral and IV Dye [Iodinated Contrast Media - IV Dye] Allergy (Intermediate, Verified 05/19/18 14:35) Itching azithromycin Adverse Reaction (Intermediate, Verified 05/19/18 14:35) Itching 10/26/17 SUSPECTED ADR TO ZITHROMAX . RX: MILD: ITCHING,NAUSEA. HOME MEDICATIONS: Home Medications Medication Instructions Recorded Fluoxetine HCl [Prozac -] 40 mg PO DAILY 09/15/14 [place]-3 Fatty Acids [[place]-3] 1,000 mg PO BID 09/15/14 Albuterol Sulfate Inhaler - 1 - 2 inh PO QID 03/15/16 [Ventolin HFA Inhaler -] Liraglutide [Victoza -] 1.8 mg SQ DAILY@1200 03/15/17 clonazePAM [Klonopin -] 0.5 mg PO DAILY PRN 05/12/17 Aspirin 81 mg PO DAILY 08/15/17 Levothyroxine [Synthroid -] 50 mcg PO DAILY 08/15/17 Atorvastatin Ca [Lipitor] 20 mg PO HS 09/09/17 Tiotropium [place] [Spiriva] 1 inh PO DAILY 09/09/17 Loratadine [Claritin] 10 mg PO DAILY 09/11/17 Albuterol 2.5/Ipratropium 0.5 1 amp NEB RQID #120 amp 10/31/17 [Duoneb -] Insulin (Novolog) [Novolog Flexpen 85 units SQ TID 11/30/17 -] Insulin Glargine,Hum.rec.anlog 50 unit SQ DAILY 11/30/17 [Lantus Solostar] Lisinopril 5 mg PO DAILY 12/08/17 Docusate Sodium [Colace] 100 mg PO BID #60 capsule 12/10/17 Ferrous Sulfate [Feosol] 325 mg PO BID #60 tablet 12/10/17 Cholecalciferol (Vitamin D3) 50,000 unit PO WEEKLY #4 capsule 03/09/18 [D3-50] Diclofenac Sodium [Voltaren] 2 gm TP TID PRN #3 tube 03/09/18 Furosemide [Lasix -] 40 mg PO DAILY 04/06/18 Sitagliptin Phos/Metformin HCl 1 each PO DAILY 04/11/18 [Janumet Xr 50-500 mg Tablet] Calcium Carbonate/Vitamin D3 500 mg PO DAILY 04/12/18 [Calcium 500 mg Chewable Tablet] Montelukast Sodium [Singulair] 10 mg PO DAILY 04/12/18 Topiramate [Topamax -] 200 mg PO BID #60 tablet 04/12/18 Zolpidem Tartrate [Ambien] 10 mg PO HS 04/12/18 Hydrocodone/Acetaminophen [[place] 1 each PO BID PRN #60 tablet MDD 2 05/04/18 10-325 Tablet] REVIEW OF SYSTEMS CONSTITUTIONAL: Admits: chills, generalized weakness. Absent: fever, diaphoresis, malaise, HEENT: Absent: rhinorrhea, nasal congestion, throat pain, throat swelling, difficulty swallowing, mouth swelling, ear pain, eye pain, visual changes CARDIOVASCULAR: Admits: chest pain, syncope, lightheadedness. Absent: palpitations, irregular heart rate, peripheral edema RESPIRATORY: Admits: shortness of breath, wheezing, dyspnea with exertion. Absent: cough, stridor, hemoptysis GASTROINTESTINAL: Admits: epigastric abdominal pain, vomiting. Absent: abdominal distension, nausea, diarrhea, constipation, melena, hematochezia GENITOURINARY: Absent: dysuria, frequency, urgency, hesitancy, hematuria, flank pain MUSCULOSKELETAL: Absent: myalgia, arthralgia, joint swelling, back pain, neck pain SKIN: Absent: rash, itching, pallor NEUROLOGIC: Admits: headache. Absent: focal weakness or paresthesias, dizziness, unsteady gait, bladder or bowel incontinence. PSYCHIATRIC: Admits: anxiety, depression. Absent: suicidal or homicidal ideation, hallucinations. PHYSICAL EXAMINATION Vital Signs - 24 hr 05/19/18 14:33 Temperature 97.4 F L Pulse Rate 81 Respiratory 20 Rate Blood Pressure 140/73 O2 Sat by Pulse 100 Oximetry (%) GENERAL: Sleepy, alert, and fully oriented, in no acute distress. HEAD: Normocephalic, atraumatic. EYES: Pupils equal, round and reactive to light, extraocular movements intact without nystagmus, sclera anicteric, conjunctiva clear. EARS, NOSE, THROAT: Ears normal, nares patent, oropharynx clear without exudates. Moist mucous membranes. No tongue bite field or bleeding noted. NECK: Normal range of motion, supple without lymphadenopathy. LUNGS: Breath sounds equal, clear to auscultation bilaterally. No wheezes, and no crackles. No accessory muscle use. HEART: Regular rate and rhythm, normal S1 and S2 without murmur, rub or gallop. Chest pain not reproducible with palpation. ABDOMEN: Obese. Soft, nontender, not distended, normoactive bowel sounds, no guarding, no rebound, no masses. No hepatomegaly. MUSCULOSKELETAL: Normal range of motion at all joints. No bony deformities or tenderness. No CVA tenderness. UPPER EXTREMITIES: 2+ radial pulses b/l, warm, well-perfused. Strength 4/5 b/l upper extremities. LOWER EXTREMITIES: 2+ dorsalis pedis pulses b/l, warm, well-perfused. No calf tenderness. No peripheral edema. Strength 4/5 b/l lower extremities. NEUROLOGICAL: Cranial nerves II-XII intact. Normal speech. PSYCHIATRIC: Tearful affect upon my encounter. SKIN: Warm, dry. Laboratory Results - last 24 hr 05/19/18 05/19/18 05/19/18 16:15 16:15 16:15 WBC 7.5 RBC 4.32 Hgb 11.2 Hct 34.5 MCV 79.9 L MCH 26.0 MCHC 32.6 RDW 15.0 Plt Count 182 MPV 9.4 Absolute Neuts (auto) 4.7 Neutrophils % 62.9 Lymphocytes % 25.1 Monocytes % 6.4 Eosinophils % 4.8 H Basophils % 0.8 Nucleated RBC % 0 PT with INR INR Sodium Potassium Chloride Carbon Dioxide Anion Gap BUN Creatinine Creat Clearance w eGFR Random Glucose Calcium Total Bilirubin AST ALT Alkaline Phosphatase Creatine Kinase 81 Troponin I < 0.02 B-Natriuretic Peptide 96.2 Total Protein Albumin Urine Color Ltyellow Urine Appearance Slcloudy Urine pH 7.0 Ur Specific [place] 1.014 Urine Protein 1+ H Urine Glucose (UA) 3+ H Urine Ketones Negative Urine Blood 3+ H Urine Nitrite Negative Urine Bilirubin Negative Urine Urobilinogen Negative Ur Leukocyte Esterase 2+ H Urine WBC (Auto) 58 Urine RBC (Auto) 53 Ur Epithelial Cells Rare 05/19/18 05/19/18 16:15 16:15 WBC RBC Hgb Hct MCV MCH MCHC RDW Plt Count MPV Absolute Neuts (auto) Neutrophils % Lymphocytes % Monocytes % Eosinophils % Basophils % Nucleated RBC % PT with INR 11.90 INR 1.01 Sodium 138 Potassium 4.1 Chloride 104 Carbon Dioxide 25 Anion Gap 8 BUN 10 Creatinine 0.8 Creat Clearance w eGFR > 60 Random Glucose 268 H Calcium 8.3 L Total Bilirubin 0.2 AST 17 ALT 20 Alkaline Phosphatase 70 Creatine Kinase Troponin I B-Natriuretic Peptide Total Protein 6.6 Albumin 3.1 L Urine Color Urine Appearance Urine pH Ur Specific [place] Urine Protein Urine Glucose (UA) Urine Ketones Urine Blood Urine Nitrite Urine Bilirubin Urine Urobilinogen Ur Leukocyte Esterase Urine WBC (Auto) Urine RBC (Auto) Ur Epithelial Cells ASSESSMENT/PLAN: Patient is a 52 year old female with history of CVA in 2015, seizure disorder, hypertension, hyperlipidemia, diabetes mellitus, anxiety, depression, sleep apnea, asthma, COPD presents with complaint of loss of consciousness. Syncopal episode -Likely secondary to panic disorder vs. seizure -EKG shows normal sinus rhythm at 89 bpm without ischemic changes. -First troponin negative at 0.02. F/U repeat troponins -CT head shows no acute intracranial hemorrhage -Chest Xray shows no acute pathology -F/U cardiac ECHO -Reinstate Topamax 200mg PO BID -Neurology consult (Dr. Wagner) -F/U UA Anxiety, depression -Patient admits grief from recent of her father Reinstate home medications: -Klonopin 0.5mg PO daily PRN -Prozac 40mg PO daily -Ambien 10mg PO HS -Psychiatric consult (Dr. Laboy) appreciated. Patient not acutely suicidal at this time. HTN -Lisinopril 5mg PO daily HLD -Lipitor 20mg PO daily DM -ISS ACHS -BGM ACHS -HbA1c COPD -Duonebs 1 amp QID -Ventolin inhaler 1-2 pumps QID PRN -Singulair 10mg PO daily -Spiriva 1 puff daily FEN -No IV fluids. Patient tolerates oral intake. Encourage judicious hydration. -Follow BMP -Diabetic, sodium controlled diet Prophylaxis -Heparin 5000u subq TID Disposition -Observe in telemetry floor. Fall precautions Visit type - Emergency Visit Emergency Visit: Yes ED Registration Date: 05/19/18 Care time: The patient presented to the Emergency Department on the above date and was hospitalized for further evaluation of their emergent condition. - New Patient This patient is new to me today: Yes Date on this admission: 05/20/18 - Critical Care Critical Care patient: No
[2018-05-19] MEDS ORDERED: CEFTRIAXONE 1,000 MG in DEXTROSE 5%-WATER - 50 ML IVPB ONE (19:34)
[2018-05-19] MEDS ORDERED: CEFTRIAXONE 1 GM/50 ML BAG ONE (20:10)
[2018-05-19] MEDS ORDERED: ALBUTEROL SO4 8 GM HFA INHALER IH PRN ×3 (20:21→21:13)
[2018-05-19] MEDS ORDERED: clonazePAM 0.5 MG TABLET PO PRN (20:21)
[2018-05-19] MEDS ORDERED: ENOXAPARIN NA (PORCINE) 40 MG/0.4 ML DISP.SYRIN SQ SCH (20:30)
[2018-05-19] MEDS ORDERED: PATIENT'S OWN MEDICATION (NON-FORMULARY) (Zolpidem Tartrate [Ambien] 10 MG) PO PRN (20:32)
--- NOTE | 2018-05-19 20:34 | PN ---
Teaching Attending Note Name of Resident: Jair Benson ATTENDING PHYSICIAN STATEMENT I saw and evaluated the patient. Chart, data, imaging reviewed. I reviewed the resident's note and discussed the case with the resident. I agree with the resident's findings and plan as documented. SUBJECTIVE: 52 year old female with history of CVA in 2014, seizure disorder, hypertension, hyperlipidemia, diabetes mellitus, anxiety, depression, sleep apnea, asthma, COPD brought to hospital for syncopal episode which occured on 05/19 during the afternoon when patient was attempting to walk into basement. Reported compliance with her seizure. Patient reported some intermittent chest pain for the last few days. Denied any shortness of breath. Pt's father 1 week ago. OBJECTIVE: Last Vital Signs Temp Pulse Resp BP Pulse Ox 97.4 F L 81 20 140/73 100 05/19/18 14:33 05/19/18 14:33 05/19/18 14:33 05/19/18 14:33 05/19/18 14:33 General- obese, nontoxic appearing heent- atraumatic, nc, moist oral mucosa neck -supple cv -s1+s2+rrr chest clear b/l abdomen- soft, obese, bs+ ext- no pedal edema Abnormal Lab Results 05/19/18 05/19/18 05/19/18 16:15 16:15 16:15 MCV 79.9 L Eosinophils % 4.8 H Random Glucose 268 H Calcium 8.3 L Albumin 3.1 L Urine Protein 1+ H Urine Glucose (UA) 3+ H Urine Blood 3+ H Ur Leukocyte Esterase 2+ H head CT, CXR reviewed EKG reviewed ASSESSMENT AND PLAN: 52yo woman with syncope episode vs possible breakthrough seizure. Syncope likely vasovagal vs orthostatic. Glucose around syncope time was >300. Less likely sz episode as there was no postictal stage and pt reports compliance with meds. R/o ACS as patient was c/o chest pain. -tele-obs -orthostatics -transthoracic echo to r/o -bed rest -fall precautions -trend troponins -c/w antiepiletic meds -neuro eval #DM -uncontrolled -insulin sliding scale -basal insulin -A1c DVT ppx -heparin sc
[2018-05-19] MEDS ORDERED: ZOLPIDEM TARTRATE 5 MG TABLET PO PRN (21:12)
--- NOTE | 2018-05-19 21:49 | FALL ---
Fall Exam - Event Witnessed fall: No Location of Fall: ED Fall from: While ambulating - Pre-Fall Mental Status: Alert, Oriented, Cooperative Current Medications: Current Medications Generic Name Dose Route Start Last Admin Trade Name Freq PRN Reason Stop Dose Admin Albuterol Sulfate 2 puff 05/19/18 21:13 Ventolin Hfa Inhaler - IH Q6H PRN SHORTNESS OF BREATH Albuterol Sulfate 1 puff 05/19/18 21:13 Ventolin Hfa Inhaler - IH Q6H PRN SHORTNESS OF BREATH Albuterol/Ipratropium 1 amp 05/20/18 08:00 Duoneb - NEB RQID SHAUN Aspirin 81 mg 05/20/18 10:00 Asa - PO DAILY SHAUN Atorvastatin Calcium 20 mg 05/19/18 22:00 Lipitor - PO HS SHAUN Calcium Carbonate/Cholecalciferol 1 tab 05/20/18 10:00 [place] 500+D - PO DAILY SHAUN Clonazepam 0.5 mg 05/19/18 20:21 Klonopin - PO DAILY PRN ANXIETY Enoxaparin Sodium 40 mg 05/19/18 20:30 Lovenox - SQ DAILY [facility] Fluoxetine HCl 40 mg 05/20/18 10:00 Prozac - PO DAILY [facility] Lisinopril 5 mg 05/20/18 10:00 Prinivil PO DAILY [facility] Montelukast Sodium 10 mg 05/20/18 10:00 Singulair - PO DAILY [facility] Tiotropium [place] 2 puff 05/20/18 10:00 Spiriva Respimat IH DAILY [facility] Topiramate 200 mg 05/19/18 22:00 Topamax - PO BID [facility] Zolpidem Tartrate 10 mg 05/19/18 21:12 Ambien - PO HS PRN - Post-Fall Patient Outcome: No Injury Treatment: None Vital Signs: Vital Signs Temperature 98.9 F 05/19/18 21:01 Pulse Rate 97 H 05/19/18 21:01 Respiratory Rate 18 05/19/18 21:01 Blood Pressure 136/67 05/19/18 21:01 O2 Sat by Pulse Oximetry (%) 97 05/19/18 21:01 LOC Post-Fall: Awake, Alert, Oriented Identify factors for HIGH RISK for Head Injury: None of the above Critical Care Total Critical Care Time (in minutes): 35 Critical Care Statement: The care of this patient involved high complexity decision making to prevent further life threatening deterioration of the patient 's condition and/or to evaluate & treat vital organ system(s) failure or risk of failure.
[2018-05-19] MEDS ORDERED: ATORVASTATIN CA 20 MG TABLET (FP) PO SCH (22:00)
[2018-05-19] MEDS ORDERED: PATIENT'S OWN MEDICATION (NON-FORMULARY) (Zolpidem Tartrate [Ambien] 10 MG) PO SCH (22:00)
[2018-05-20] MEDS: TOPIRAMATE 200 MG TABLET (FP) PO SCH ×2 (00:54→11:41)
[2018-05-20 01:51] LABS: INR 1.01 (0.83-1.09); PROTHROMBIN TIME (PATIENT) 11.9 SEC (9.7-13.0)
[2018-05-20 01:54] LABS: ACTIVATED PTT 28.3 SECONDS (25.2-36.5)
[2018-05-20] MEDS ORDERED: HEPARIN NA (PORCINE) 5,000 UNITS/ML 1ML VIAL SQ SCH (06:00)
[2018-05-20] MEDS ORDERED: HEMOQUE TEST 1 EACH EACH ONE (06:33)
[2018-05-20] MEDS: INSULIN SLIDING SCALE (NOVOLOG) 1 VIAL SQ SCH ×2 (06:49→11:51)
[2018-05-20] MEDS ORDERED: INSULIN (NOVOLOG) ASPART 100 UNITS/ML 10ML VIAL ONE (06:52)
[2018-05-20 06:53] LABS: HEMATOCRIT 36.8 % (32.4-45.2); HEMOGLOBIN 11.7 GM/dL (10.7-15.3); MCH 25.6 pg (25.7-33.7); MCHC 31.8 g/dl (32.0-36.0); MEAN CELL VOLUME 80.5 fl (80-96); MEAN PLT VOLUME 9.2 fl (7.5-11.1); PLATELET COUNT 204 K/MM3 (134-434); RBC 4.57 M/mm3 (3.60-5.2); RDW 15.2 % (11.6-15.6); WHITE BLOOD COUNT 6.6 K/mm3 (4.0-10.0)
[2018-05-20 07:24] LABS: ALBUMIN 3.3 g/dl (3.4-5.0); ALK PHOS 74 U/L (45-117); ANION GAP 8 MMOL/L (8-16); BILIRUBIN,TOTAL 0.4 mg/dL (0.2-1); BLOOD UREA NITROGEN 9 mg/dL (7-18); CALCIUM 8.2 mg/dL (8.5-10.1); CHLORIDE 108 mmol/L (98-107); CO2 24 mmol/L (21-32); CREATININE 0.8 mg/dL (0.55-1.3); GLUCOSE,RANDOM 276 mg/dL (74-106); MAGNESIUM 1.9 mg/dL (1.8-2.4); PHOSPHOROUS 3.3 mg/dL (2.5-4.9); POTASSIUM 4.2 mmol/L (3.5-5.1); SGOT/AST 10 U/L (15-37); SGPT/ALT 18 U/L (13-61); SODIUM 140 mmol/L (136-145)
[2018-05-20] MEDS ORDERED: FLUoxetine HCL 20 MG CAPSULE (FP) PO SCH (10:00)
[2018-05-20] MEDS ORDERED: CALCIUM 500MG/VIT-D 200 UNITS COMBO TABLET (FP) PO SCH (10:00)
[2018-05-20] MEDS ORDERED: MONTELUKAST NA 10 MG TABLET PO SCH (10:00)
[2018-05-20] MEDS ORDERED: ASPIRIN 81 MG CHEWABLE TABLETS PO SCH (10:00)
[2018-05-20] MEDS ORDERED: CALCIUM CARBONATE PO SCH (10:00)
[2018-05-20] MEDS ORDERED: PATIENT'S OWN MEDICATION (NON-FORMULARY) (Tiotropium Bromide [Spiriva] 1 INH) PO SCH (10:00)
[2018-05-20] MEDS ORDERED: TIOTROPIUM BROMIDE 2.5 MCG (SPIRIVA) RESPIMAT INHALER IH SCH (10:00)
[2018-05-20] MEDS ORDERED: VITAMIN D3 PO SCH (10:00)
[2018-05-20] MEDS ORDERED: [UNRECOGNIZED DRUG - OTHER] PO SCH (10:00)
[2018-05-20] MEDS ORDERED: LISINOPRIL 5 MG TABLET (FP) PO SCH (10:00)
--- NOTE | 2018-05-20 11:11 | EKG ---
Test Reason : Blood Pressure : / mmHG Vent. Rate : 096 BPM Atrial Rate : 096 BPM P-R Int : 144 ms QRS Dur : 084 ms QT Int : 372 ms P-R-T Axes : 000 -22 037 degrees QTc Int : 469 ms NORMAL SINUS RHYTHM NORMAL ECG WHEN COMPARED WITH ECG OF 19-MAY-2018 15:53, NONSPECIFIC T WAVE ABNORMALITY NOW EVIDENT IN LATERAL LEADS Confirmed by LUCIE MENDOZA, LESLI ([id number]) on 05/20/2018 11:10:53 AM Referred By: Confirmed By:LESLI FAULKNER MD
--- NOTE | 2018-05-20 11:11 | EKG ---
Test Reason : Blood Pressure : / mmHG Vent. Rate : 089 BPM Atrial Rate : 089 BPM P-R Int : 164 ms QRS Dur : 090 ms QT Int : 390 ms P-R-T Axes : 052 -33 037 degrees QTc Int : 474 ms NORMAL SINUS RHYTHM LEFT AXIS DEVIATION ABNORMAL ECG WHEN COMPARED WITH ECG OF 11-APR-2018 22:27, NO SIGNIFICANT CHANGE WAS FOUND Confirmed by LESLI FAULKNER MD ([id number]) on 05/20/2018 11:11:01 AM Referred By: Confirmed By:LESLI FAULKNER MD
[2018-05-20] MEDS ORDERED: ALBUTEROL SO4 2.5/IPRATROPIUM 0.5 INH SOL 3 ML VIAL.NEB. NEB ONE (11:36)
[2018-05-20] MEDS ORDERED: ASPIRIN COATED 81 MG TABLET.EC ONE (11:36)
[2018-05-20] MEDS: ALBUTEROL SO4 2.5/IPRATROPIUM 0.5 INH SOL 3 ML VIAL.NEB. NEB SCH ×2 (11:41→12:28)
[2018-05-20] MEDS ORDERED: INSULIN REGULAR HUMAN 100 UNITS/ML *VIAL ONE (11:55)
--- NOTE | 2018-05-20 13:00 | CON.NEURO ---
Consult Consult Specialty:: NEUROLOGY-MARYANN MENDOZA Reason for Consultation:: "Fainting" - History of Present Illness History of Present Illness: Patient is a 52 year old female with history of CVA in 2015, seizure disorder, hypertension, hyperlipidemia, diabetes mellitus, anxiety, depression, sleep apnea, asthma, COPD presents with complaint of loss of consciousness. Recently seen for similar occurrence one month ago. Occurred today as she got up from motorized scooter to open door to her house, felt dizzy, and fell. Admits that she was found by her daughter who lives with her, and was unconscious for 5-10 minutes. She endorses chest pain described as sharp and pressure-like that lasts for approx 5 minutes without clear palliative or provocative features. Chest pain does not radiate to arms, or back and is not associated with deep breaths. She endorsed one episode of vomiting, during this episode, however does not remember any blood or bile within the vomitus. Denies fecal or urinary incontinence, however was told that she was "shaking". Admits compliance with Topamax 200mg BID. She attributes these symptoms to stress and anxiety from a recent loss of her father who recent 05/11/2018. Upon my encounter patient states she "sometimes" feels suicidal ideation, however currently denies any suicidal or homicidal ideation. -Above events noted-yesterday had "fainting", since c/o light headedness. She reports in the past she has been dx. with syncope. -Last seen by Dr. Wagner in 09/17, dx.-partial seizures, placed on Topamax 200mg bid. - History Source History Provided By: Medical Record (MRI OF THE BRAIN C-. 2014. 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: CVA, Seizure, TIA Cardio/Vascular: Yes: CAD, HTN, Hyperlipdemia Pulmonary: Yes: Sleep Apnea ...LMP: 10/27/17 Infectious Disease: Yes: Other (Hep C) Psych: Yes: Anxiety, Bipolar Endocrine: Yes: Diabetes Mellitus - Past Surgical History Past Surgical History: Yes: - Alcohol/Substance Use Hx Alcohol Use: No - Smoking History Smoking history: Former smoker Have you smoked in the past 12 months: No If you are a former smoker, when did you quit?: 2014 - Social History Usual Living Arrangement: Alone ADL: Independent History of Recent Travel: No Home Medications - Allergies Allergies/Adverse Reactions: Allergies Allergy/AdvReac Type Severity Reaction Status Date / Time Iodinated Contrast- Oral and Allergy Intermediate Itching Verified 05/19/18 14: 35 IV Dye [Iodinated Contrast Media - IV Dye] azithromycin AdvReac Intermediate Itching Verified 05/19/18 14:35 - Home Medications Home Medications: Ambulatory Orders Fluoxetine HCl [Prozac -] 40 mg PO DAILY 09/15/14 [place]-3 Fatty Acids [[place]-3] 1,000 mg PO BID 09/15/14 Albuterol Sulfate Inhaler - [Ventolin HFA Inhaler -] 1 - 2 inh PO QID 03/15/16 Liraglutide [Victoza -] 1.8 mg SQ DAILY@1200 03/15/17 clonazePAM [Klonopin -] 0.5 mg PO DAILY PRN 05/12/17 Aspirin 81 mg PO DAILY 08/15/17 Levothyroxine [Synthroid -] 50 mcg PO DAILY 08/15/17 Atorvastatin Ca [Lipitor] 20 mg PO HS 09/09/17 Tiotropium [place] [Spiriva] 1 inh PO DAILY 09/09/17 Loratadine [Claritin] 10 mg PO DAILY 09/11/17 Albuterol 2.5/Ipratropium 0.5 [Duoneb -] 1 amp NEB RQID #120 amp 10/31/17 Insulin (Novolog) [Novolog Flexpen -] 85 units SQ TID 11/30/17 Insulin Glargine,Hum.rec.anlog [Lantus Solostar] 50 unit SQ DAILY 11/30/17 Lisinopril 5 mg PO DAILY 12/08/17 Docusate Sodium [Colace] 100 mg PO BID #60 capsule 12/10/17 Ferrous Sulfate [Feosol] 325 mg PO BID #60 tablet 12/10/17 Cholecalciferol (Vitamin D3) [D3-50] 50,000 unit PO WEEKLY #4 capsule 03/09/18 Diclofenac Sodium [Voltaren] 2 gm TP TID PRN #3 tube 03/09/18 Furosemide [Lasix -] 40 mg PO DAILY 04/06/18 Sitagliptin Phos/Metformin HCl [Janumet Xr 50-500 mg Tablet] 1 each PO DAILY 07/17 Calcium Carbonate/Vitamin D3 [Calcium 500 mg Chewable Tablet] 500 mg PO DAILY Montelukast Sodium [Singulair] 10 mg PO DAILY 04/12/18 Topiramate [Topamax -] 200 mg PO BID #60 tablet 04/12/18 Zolpidem Tartrate [Ambien] 10 mg PO HS 04/12/18 Hydrocodone/Acetaminophen [[place] 10-325 Tablet] 1 each PO BID PRN #60 tablet MDD 2 05/04/18 Family Disease History - Family Disease History Family Disease History: Diabetes: Mother (,), Brother (one living - etoh ), Sister (two living - ), Heart Disease: Father (living, no contact,etoh), Sister, Respiratory: Father, Other: Father, Mother, Brother, Sister, Daughter ( one with etoh) Physical Exam-Neuro Vital Signs: Vital Signs Temperature 98.5 F 05/20/18 06:54 Pulse Rate 90 05/20/18 08:04 Respiratory Rate 16 05/20/18 08:04 Blood Pressure 116/60 05/20/18 08:04 O2 Sat by Pulse Oximetry (%) 98 05/20/18 08:04 Labs: CBC, BMP 05/20/18 06:20 05/20/18 06:20 INR, PTT INR 1.01 (0.83-1.09) 05/20/18 01:23 - Neuro Exam Level Of Consciousness: Yes: Alert, Oriented to Person, Oriented to Place, Oriented to Time Eyes: Yes: PERRL Mini Mental Exam: Normal, + anxious affect. DTR's: 2+ Left Bicep, 2+ Right Bicep, 2+ Left Tricep, 2+ Right Tricep, 2+ Left Brachioradialis, 2+ Right Brachioradialis, 2+ Left Achilles, 2+ Right Achilles Motor Strength: 4/5: Left Leg, 5/5: Left Arm, Right Arm, Right Leg Gait: Deferred Imaging - Results Cat Scan: Report Reviewed (CT head 05/19/18-reported without abn.) Assessment/Plan Pt. presents with syncope, i doubt seizure and chest pain. 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 cardiac w/u, if not d9one she may require a tilt-table test. Cardiac consult can be obtained as outpt. She may be discharged home if w/u for chest pain is unrevealing Plesae ask her to seek an appt. with Dr. Wagner [phone]. Please ensure her current med combination is not causing orthostasis. -Seizures/SANTOS- cont. Topamax 200mg bid. Thank you. Ten Gonsales MD
[2018-05-20 13:20] VITALS: BP 122/62; PULSE 87; TEMP 98.1
--- NOTE | 2018-05-20 13:41 | DS ---
Physical Exam: SUBJECTIVE: Patient seen and examined, tearful, reports stress, but no other complaints. When attempting to explain about prior hospitalizations and work up , became tearful, called her daughter, affirmed being under stress. OBJECTIVE: Vital Signs Period Temp Pulse Resp BP Sys/Giron Pulse Ox Last 24 Hr 97.4 F-98.9 F 81-97 16-20 108-140/60-80 96-100 PHYSICAL EXAM GENERAL: The patient is awake, alert, and fully oriented, in no acute distress, tearful during the interview HEAD: Normal with no signs of trauma. EYES: PERRL, extraocular movements intact, sclera anicteric, conjunctiva clear. ENT: Ears normal, nares patent, oropharynx clear without exudates, moist mucous membranes. NECK: Trachea midline, full range of motion, supple. LUNGS: Breath sounds equal, clear to auscultation bilaterally, no wheezes, no crackles, no accessory muscle use. HEART: S1S2 regular ABDOMEN: Soft, nontender, nondistended, normoactive bowel sounds, no guarding, no rebound EXTREMITIES: 2+ pulses, warm, well-perfused, no edema. NEUROLOGICAL:AAOX3, PERRL, EOMI, facial symmetry, power 5/5 on exam, sensation intact and symmetric to light touch, no pronator drift, hand bowling teacher symmetric PSYCH: Normal mood, normal affect. SKIN: Warm, dry, normal turgor, no rashes or lesions noted. LABS Laboratory Results - last 24 hr 05/19/1818 05/19/18 16:15 16:15 16:15 WBC 7.5 RBC 4.32 Hgb 11.2 Hct 34.5 MCV 79.9 L MCH 26.0 MCHC 32.6 RDW 15.0 Plt Count 182 MPV 9.4 Absolute Neuts (auto) 4.7 Neutrophils % 62.9 Lymphocytes % 25.1 Monocytes % 6.4 Eosinophils % 4.8 H Basophils % 0.8 Nucleated RBC % 0 PT with INR INR PTT (Actin FS) Sodium Potassium Chloride Carbon Dioxide Anion Gap BUN Creatinine Creat Clearance w eGFR POC Glucometer Random Glucose Calcium Phosphorus Magnesium Total Bilirubin AST ALT Alkaline Phosphatase Creatine Kinase 81 Troponin I < 0.02 B-Natriuretic Peptide 96.2 Total Protein Albumin Urine Color Ltyellow Urine Appearance Slcloudy Urine pH 7.0 Ur Specific [place] 1.014 Urine Protein 1+ H Urine Glucose (UA) 3+ H Urine Ketones Negative Urine Blood 3+ H Urine Nitrite Negative Urine Bilirubin Negative Urine Urobilinogen Negative Ur Leukocyte Esterase 2+ H Urine WBC (Auto) 58 Urine RBC (Auto) 53 Ur Epithelial Cells Rare 05/19/18 05/19/18 05/19/18 16:15 16:15 21:17 WBC RBC Hgb Hct MCV MCH MCHC RDW Plt Count MPV Absolute Neuts (auto) Neutrophils % Lymphocytes % Monocytes % Eosinophils % Basophils % Nucleated RBC % PT with INR 11.90 INR 1.01 PTT (Actin FS) Sodium 138 Potassium 4.1 Chloride 104 Carbon Dioxide 25 Anion Gap 8 BUN 10 Creatinine 0.8 Creat Clearance w eGFR > 60 POC Glucometer [phone] Random Glucose 268 H Calcium 8.3 L Phosphorus Magnesium Total Bilirubin 0.2 AST 17 ALT 20 Alkaline Phosphatase 70 Creatine Kinase Troponin I B-Natriuretic Peptide Total Protein 6.6 Albumin 3.1 L Urine Color Urine Appearance Urine pH Ur Specific [place] Urine Protein Urine Glucose (UA) Urine Ketones Urine Blood Urine Nitrite Urine Bilirubin Urine Urobilinogen Ur Leukocyte Esterase Urine WBC (Auto) Urine RBC (Auto) Ur Epithelial Cells 05/19/18 05/20/18 05/20/18 23:32 01:23 06:20 WBC 6.6 RBC 4.57 Hgb 11.7 Hct 36.8 MCV 80.5 MCH 25.6 L MCHC 31.8 L RDW 15.2 Plt Count 204 MPV 9.2 Absolute Neuts (auto) Neutrophils % Lymphocytes % Monocytes % Eosinophils % Basophils % Nucleated RBC % PT with INR 11.90 INR 1.01 PTT (Actin FS) 28.3 Sodium Potassium Chloride Carbon Dioxide Anion Gap BUN Creatinine Creat Clearance w eGFR POC Glucometer Random Glucose Calcium Phosphorus Magnesium Total Bilirubin AST ALT Alkaline Phosphatase Creatine Kinase Troponin I < 0.02 B-Natriuretic Peptide Total Protein Albumin Urine Color Urine Appearance Urine pH Ur Specific [place] Urine Protein Urine Glucose (UA) Urine Ketones Urine Blood Urine Nitrite Urine Bilirubin Urine Urobilinogen Ur Leukocyte Esterase Urine WBC (Auto) Urine RBC (Auto) Ur Epithelial Cells 05/20/18 05/20/18 05/20/18 06:20 06:38 11:48 WBC RBC Hgb Hct MCV MCH MCHC RDW Plt Count MPV Absolute Neuts (auto) Neutrophils % Lymphocytes % Monocytes % Eosinophils % Basophils % Nucleated RBC % PT with INR INR PTT (Actin FS) Sodium 140 Potassium 4.2 Chloride 108 H Carbon Dioxide 24 Anion Gap 8 BUN 9 Creatinine 0.8 Creat Clearance w eGFR > 60 POC Glucometer [phone] Random Glucose 276 H Calcium 8.2 L Phosphorus 3.3 Magnesium 1.9 Total Bilirubin 0.4 AST 10 L ALT 18 Alkaline Phosphatase 74 Creatine Kinase Troponin I B-Natriuretic Peptide Total Protein 7.0 Albumin 3.3 L Urine Color Urine Appearance Urine pH Ur Specific [place] Urine Protein Urine Glucose (UA) Urine Ketones Urine Blood Urine Nitrite Urine Bilirubin Urine Urobilinogen Ur Leukocyte Esterase Urine WBC (Auto) Urine RBC (Auto) Ur Epithelial Cells CT head neg for acute intracranial pathology HOSPITAL COURSE: Date of Admission:05/19/18 Date of Discharge: 05/20/18 Minutes to complete discharge: 35 Discharge Summary Reason For Visit: SYNCOPE,CHEST PAIN Current Active Problems Chest pain at rest (Acute) Syncope (Acute) Hospital Course: Patient was watched on telemetry with no events. ACS was ruled out. She had CT brain on admission that was negative for acute concerns. She was noted anxious and tearful during her hospital stay. She was evaluated by neurology and recommended continuing her topamax and outpatient cardiology follow up for possible tilt table testing. Patient was noted with multiple prior admissions for the same, with extensive work up including 2D echo, carotid Duplex, holter monitoring, MRI brain. She has ? h/o CVA in 2015 however her MRI brain from 2014 and 10/2017 have been negative for concerns. Currently she is at her baseline and will be discharge with outpatient neurology and cardiology follow up. Condition: Stable - Instructions Diet, Activity, Other Instructions: Please return to the emergency department with any new or worsening symptoms or concerns. Please follow up with your primary care physician within 72 hours. You were watched on monitor and heart attack was ruled out. You were seen by neurology and recommended to continue your topamax. Continue all your home medications as before Please ensure to monitor your blood glucose before meals and at bedtime and notify your doctor of the same. Avoid sudden changes in position Maintain adequate hydration. Please follow up with your fire pot operator outpatient to discuss possible "Tilt Table Testing". Do not drive, operate heavy machinery and avoid being alone on height, in water or with children. Call 911 or come to ED if any new concerns noted. Disposition: HOME - Home Medications Comprehensive Discharge Medication List: Ambulatory Orders Fluoxetine HCl [Prozac -] 40 mg PO DAILY 09/15/14 [place]-3 Fatty Acids [[place]-3] 1,000 mg PO BID 09/15/14 Albuterol Sulfate Inhaler - [Ventolin HFA Inhaler -] 1 - 2 inh PO QID 03/15/16 Liraglutide [Victoza -] 1.8 mg SQ DAILY@1200 03/15/17 clonazePAM [Klonopin -] 0.5 mg PO DAILY PRN 05/12/17 Aspirin 81 mg PO DAILY 08/15/17 Levothyroxine [Synthroid -] 50 mcg PO DAILY 08/15/17 Atorvastatin Ca [Lipitor] 20 mg PO HS 09/09/17 Tiotropium [place] [Spiriva] 1 inh PO DAILY 09/09/17 Loratadine [Claritin] 10 mg PO DAILY 09/11/17 Albuterol 2.5/Ipratropium 0.5 [Duoneb -] 1 amp NEB RQID #120 amp 10/31/17 Insulin (Novolog) [Novolog Flexpen -] 85 units SQ TID 11/30/17 Insulin Glargine,Hum.rec.anlog [Lantus Solostar] 50 unit SQ DAILY 11/30/17 Lisinopril 5 mg PO DAILY 12/08/17 Docusate Sodium [Colace] 100 mg PO BID #60 capsule 12/10/17 Ferrous Sulfate [Feosol] 325 mg PO BID #60 tablet 12/10/17 Cholecalciferol (Vitamin D3) [D3-50] 50,000 unit PO WEEKLY #4 capsule 03/09/18 Diclofenac Sodium [Voltaren] 2 gm TP TID PRN #3 tube 03/09/18 Furosemide [Lasix -] 40 mg PO DAILY 04/06/18 Sitagliptin Phos/Metformin HCl [Janumet Xr 50-500 mg Tablet] 1 each PO DAILY 07/17 Calcium Carbonate/Vitamin D3 [Calcium 500 mg Chewable Tablet] 500 mg PO DAILY Montelukast Sodium [Singulair] 10 mg PO DAILY 04/12/18 Topiramate [Topamax -] 200 mg PO BID #60 tablet 04/12/18 Zolpidem Tartrate [Ambien] 10 mg PO HS 04/12/18 Hydrocodone/Acetaminophen [[place] 10-325 Tablet] 1 each PO BID PRN #60 tablet MDD 2 05/04/18 This patient is new to me today: Yes Date on this admission: 05/20/18 Emergency Visit: Yes ED Registration Date: 05/19/18 Care time: The patient presented to the Emergency Department on the above date and was hospitalized for further evaluation of their emergent condition. Critical Care patient: No - Discharge Referral Referred to [facility] No
== END 2018-05-20 14:45 | disposition home or self-care (01) ==
LOC: JER 14:05 → JERBED 18:04
PROVIDERS: ADMIT Internal Medicine; ATTEND Hospitalist
PROC: 3E03329 Introduction of Other Anti-infective into Peripheral Vein, Percutaneous Approach (ICD-10-PCS; principal; 2018-05-19)
PROC: 3E013VG Introduction of Insulin into Subcutaneous Tissue, Percutaneous Approach (ICD-10-PCS; 2018-05-19)
PROC: 3E0F7GC Introduction of Other Therapeutic Substance into Respiratory Tract, Via Natural or Artificial Opening (ICD-10-PCS; 2018-05-19)
DX: R55 Syncope and collapse (principal); R07.9 Chest pain, unspecified; I10 Essential (primary) hypertension; E11.65 Type 2 diabetes mellitus with hyperglycemia; E03.9 Hypothyroidism, unspecified; E78.5 Hyperlipidemia, unspecified; B18.2 Chronic viral hepatitis C; G40.909 Epilepsy, unspecified, not intractable, without status epilepticus; G47.33 Obstructive sleep apnea (adult) (pediatric); F32.9 Major depressive disorder, single episode, unspecified; F41.9 Anxiety disorder, unspecified; J44.9 Chronic obstructive pulmonary disease, unspecified; I69.354 Hemiplegia and hemiparesis following cerebral infarction affecting left non-dominant side; Z87.891 Personal history of nicotine dependence; Z79.82 Long term (current) use of aspirin; Z79.84 Long term (current) use of oral hypoglycemic drugs; Z79.4 Long term (current) use of insulin; Z88.1 Allergy status to other antibiotic agents; Z91.041 Radiographic dye allergy status
CPT/HCPCS: 36415; 70450-TC; 71045-TC-FY; 80053; 80201; 81003; 81015; 82550; 82962; 83735; 83880; 84100; 84484; 85025; 85027; 85610; 85730; 93005; 93010; 94640; 96365; 96372; 99284-25; G0378

== ENCOUNTER 2018-08-28 16:40 | Emergency (ER) | payer OTHER ==
[2018-08-28 17:12] VITALS: BMI 50.5
--- NOTE | 2018-08-28 17:16 | PDOC ---
History of Present Illness - General Chief Complaint: Seizure Stated Complaint: POSSIBLE SEIZURE Time Seen by Provider: 08/28/18 17:14 - History of Present Illness Initial Comments: 08/28/18 17:15 53 year old woman with a history of HTN, DM, Hep C, ?CVA 2014 though MRI negative, Seizure disorder, MARILU, depression and anxiety who presents with possible seizure episode that occurred while at the court room for custody. She felt dizzy, her eyes closed and went to the ground and started shaking for approx 2-3 min, but did not have incontinence, tongue biting, or eyes rolling back into her head. She was unresponsive at the time and the episode was witnessed by her friend. When she became more alert she was not confused but started complaining of chest pain, nausea, headache. She notes some black spots in her vision, but she reports that she had injection to her L eye with a retinal specialist yesterday. At bedside she complains of some nonradiating chest pain that has improved since onset, nausea, headache and some mild shortness of breath. She denies any recent illness, fever, travel, dysuria or hematuria. Patient takes Topomax for seizures and reports complaince with all medications . Past History - Past Medical History Allergies/Adverse Reactions: Allergies Allergy/AdvReac Type Severity Reaction Status Date / Time Iodinated Contrast- Oral and Allergy Intermediate Itching Verified 08/28/18 17: 08 IV Dye [Iodinated Contrast Media - IV Dye] azithromycin AdvReac Intermediate Itching Verified 08/28/18 17:08 Home Medications: Ambulatory Orders Fluoxetine HCl [Prozac -] 40 mg PO DAILY 09/15/14 [place]-3 Fatty Acids [[place]-3] 1,000 mg PO BID 09/15/14 Albuterol Sulfate Inhaler - [Ventolin HFA Inhaler -] 1 - 2 inh PO QID 03/15/16 clonazePAM [Klonopin -] 0.5 mg PO DAILY PRN 05/12/17 Aspirin 81 mg PO DAILY 08/15/17 Atorvastatin Ca [Lipitor] 20 mg PO HS 09/09/17 Tiotropium [place] [Spiriva] 1 inh PO DAILY 09/09/17 Loratadine [Claritin] 10 mg PO DAILY 09/11/17 Albuterol 2.5/Ipratropium 0.5 [Duoneb -] 1 amp NEB RQID #120 amp 10/31/17 Lisinopril 5 mg PO DAILY 12/08/17 Docusate Sodium [Colace] 100 mg PO BID #60 capsule 12/10/17 Ferrous Sulfate [Feosol] 325 mg PO BID #60 tablet 12/10/17 Furosemide [Lasix -] 40 mg PO DAILY 04/06/18 Sitagliptin Phos/Metformin HCl [Janumet Xr 50-500 mg Tablet] 1 each PO DAILY 07/17 Calcium Carbonate/Vitamin D3 [Calcium 500 mg Chewable Tablet] 500 mg PO DAILY Montelukast Sodium [Singulair] 10 mg PO DAILY 04/12/18 Semaglutide [Ozempic] 1 mg SQ Q7D 06/04/18 Insulin (Levemir) [Levemir Vial] 35 unit SQ BID 07/04/18 Cholecalciferol (Vitamin D3) [D3-50] 50,000 unit PO WEEKLY #4 capsule 08/02/18 Diclofenac Sodium [Voltaren] 2 gm TP TID PRN #3 tube 08/02/18 Gabapentin [Neurontin] 600 mg PO TID 08/02/18 Hydrocodone/Acetaminophen [[place] 10-325 Tablet] 1 each PO BID #45 tablet MDD 2 08/02/18 Asthma: Yes Cardiac Disorders: No 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) COPD: Yes CHF: Yes (DIASTOLIC) Dementia: No Diabetes: Yes GI Disorders: No Disorders: No HTN: Yes Hypercholesterolemia: Yes Liver Disease: Yes (hep C - treated) Psychiatric Problems: Yes Seizures: Yes Thyroid Disease: Yes (hypothyroid) - Surgical History Abdominal Surgery: Yes (UMBILICAL HERNIA) - Immunization History Immunization Up to Date: No - Suicide/Smoking/Psychosocial Hx Smoking History: Unknown if ever smoked Have you smoked in the past 12 months: No If you are a former smoker, when did you quit?: 2014 Information on smoking cessation initiated: No 'Breaking Loose' booklet given: 09/16/14 Hx Alcohol Use: No Drug/Substance Use Hx: No Substance Use Type: None Hx Substance Use Treatment: No *Physical Exam - Vital Signs Last Vital Signs Temp Pulse Resp BP Pulse Ox 97.2 F L 91 H 18 146/91 97 08/28/18 17:08/28/18 17:08/28/18 17:08/28/18 17:09 08/28/18 17:09 - Physical Exam Comments: 08/28/18 19:10 GENERAL: Awake, alert, and fully oriented, in no acute distress, obese HEAD: No signs of trauma, normocephalic, atraumatic EYES: PERRLA, EOMI, sclera anicteric, conjunctiva clear ENT: oropharynx clear without exudates. Moist mucosa NECK: Normal ROM, supple LUNGS: No distress, speaks full sentences, clear to auscultation bilaterally HEART: Regular rate and rhythm, normal S1 and S2, no murmurs, rubs or gallops, peripheral pulses normal and equal bilaterally. ABDOMEN: Soft, nontender, normoactive bowel sounds. No guarding, no rebound. No masses EXTREMITIES : Normal inspection, Normal range of motion, no edema. No clubbing or cyanosis. NEUROLOGICAL: Cranial nerves II through XII grossly intact. Normal speech, no focal sensorimotor deficits SKIN: Warm, Dry, normal turgor, no rashes or lesions noted Moderate Sedation - Procedure Monitoring Vital Signs: Procedure Monitoring Vital Signs Temperature 97.2 F L 08/28/18 17:09 Pulse Rate 91 H 08/28/18 17:09 Respiratory Rate 18 08/28/18 17:09 Blood Pressure 146/91 08/28/18 17:09 O2 Sat by Pulse Oximetry (%) 97 08/28/18 17:09 ED Treatment Course - LABORATORY CBC & Chemistry Diagram: 08/28/18 18:10 08/28/18 18:10 Medical Decision Making - Medical Decision Making 08/28/18 19:08 53 year old woman with a history of HTN, DM, Hep C, ?CVA 2015 though MRI negative, Seizure disorder, MARILU, depression and anxiety who presents with possible seizure episode that occurred while at the court room for custody. She felt dizzy, her eyes closed and went to the ground and started shaking for approx 2-3 min, but did not have incontinence, tongue biting, or eyes rolling back into her head. She was unresponsive at the time and the episode was witnessed by her friend. When she became more alert she was not confused but started complaining of chest pain, nausea, headache. ED Course: Consider sources that would decrease seizure threshold acute stress vs infectious, pna, uti vs arrythmia vs ACS vs electrolyte derangement vs medication noncomplaince cbc, cmp, trop, ekg, cxr, upreg EKG: cbc- wnl pending cmp, trop, cxr 08/28/18 19:11
[2018-08-28] MEDS ORDERED: METOCLOPRAMIDE HCL INJECTION 10 MG/2 ML VIAL IVPUSH ONE (17:47)
--- NOTE | 2018-08-28 18:03 | PDOC ---
Attending Attestation - HPI HPI: 08/28/18 18:07 The patient is a 53 year old female, with a significant past medical history of HTN, DM, Hep C, CVA (2015), Seizure disorder, MARILU, depression, anxiety, who presents to the emergency department for evaluation after a seizure like episode today. She states she was in court for a custody decision when she developed dizziness while walking. She states she then started shaking and states the episode was witnessed by family and the people in the court. The patients friend at bedside states the patient was unresponsive for about 2-3 minutes and denies noticing any eye rolling. The patient denies tongue trauma. The patient also reports non radiating chest pressure, mild SOB, nausea and headache which started immediately following her seizure-like activity today. She also reports seeing black visual floaters. She states she had an injection to her left eye yesterday with a retinal specialist and has a follow-up appt next week. Pt reportedly had a normal EEG in April 2018. The patient denies fever, chills, vomit, diarrhea and constipation. The patient denies dysuria, frequency, urgency and hematuria. Allergies: Iodinated contrast, Azithromycin Neurologist: Dr. Colmenares PCP: Damaris Rizo - Physicial Exam PE: 08/28/18 18:08 GENERAL: Well-appearing, Obese. No apparent distress. HEENT: Normocephalic, atraumatic. No hematomas or laceration. PERRL, EOM intact. CARDIOVASCULAR: Normal S1, S2. Regular rate and rhythm. PULMONARY: Clear to auscultation bilaterally. ABDOMEN: protuberant.. Soft, non-distended, non-tender. EXTREMITIES: Normal ROM in all four extremities. No gross deformities. SKIN: Warm, dry. No rash NEUROLOGICAL: AAOx3. Moving all extremities purposefully an with 5/5 MS. No focal neurological deficits. - Medical Decision Making 08/28/18 18:08 Documentation prepared by Rachel Vargas, acting as medical assistant prn for Lulu Acosta MD <Rachel Vargas - Last Filed: 08/28/18 18:07> - Resident Resident Name: Jennifer Wallace - ED Attending Attestation I have performed the following: I have examined & evaluated the patient, The case was reviewed & discussed with the resident, I agree w/resident's findings & plan, Exceptions are as noted - Medical Decision Making 08/28/18 21:56 53 yo female with h/o seizures had a witnessed szs today. She has no focal deficits upon arrival,no head trauma -in reviewing her old studies she had eleven ct scans of her head last year labs reviewed ekg nsr,no ischemia,neg troponin pt 's neurologist is Dr Wagner and she will follow up with him 08/28/18 22:00 <Lulu Acosta - Last Filed: 08/28/18 22:01>
[2018-08-28] MEDS ORDERED: METOCLOPRAMIDE HCL INJECTION 10 MG/2 ML VIAL ONE (18:10)
[2018-08-28 18:53] LABS: BASO % 0.8 % (0-2.0); HEMOGLOBIN 12.5 GM/dL (10.7-15.3); LYMPH % 26.2 % (8-40); MCH 27.1 pg (25.7-33.7); MCHC 33.8 g/dl (32.0-36.0); MEAN CELL VOLUME 80.1 fl (80-96); MEAN PLT VOLUME 9.2 fl (7.5-11.1); MONO % 5.7 % (3.8-10.2); NEUT % 61.3 % (42.8-82.8); PLATELET COUNT 233 K/MM3 (134-434); RBC 4.61 M/mm3 (3.60-5.2); WHITE BLOOD COUNT 8.2 K/mm3 (4.0-10.0)
[2018-08-28 18:56] LABS: URINE APPEARANCE CLEAR; URINE BILIRUBIN NEGATIVE (<2.0 mg/dL); URINE COLOR STRAW; URINE GLUCOSE (UA) NEGATIVE (NEGATIVE); URINE KETONE NEGATIVE (NEGATIVE); URINE LEUK ESTERASE NEGATIVE (NEGATIVE); URINE NITRITE NEGATIVE (NEGATIVE); URINE PROTEIN NEGATIVE (NEGATIVE); URINE UROBILINOGEN NEGATIVE mg/dL (0.2-1.0)
[2018-08-28 18:57] LABS: HCG,QUALITATIVE URINE Negative
--- NOTE | 2018-08-28 20:02 | PDOC ---
*Physical Exam - Vital Signs Last Vital Signs Temp Pulse Resp BP Pulse Ox 97.2 F L 91 H 18 146/91 97 08/28/18 17:09 08/28/18 17:09 08/28/18 17:09 08/28/18 17:09 08/28/18 17:09 ED Treatment Course - LABORATORY CBC & Chemistry Diagram: 08/28/18 18:10 08/28/18 18:10 - ADDITIONAL ORDERS Additional order review: Laboratory Results 08/28/18 18:10 Urine Color Straw Urine Appearance Clear Urine pH 7.0 Ur Specific [place] 1.010 Urine Protein Negative Urine Glucose (UA) Negative Urine Ketones Negative Urine Blood 2+ H Urine Nitrite Negative Urine Bilirubin Negative Urine Urobilinogen Negative Ur Leukocyte Esterase Negative Urine WBC (Auto) 1 Urine RBC (Auto) 5 Urine HCG, Qual Negative 08/28/18 18:10 RBC 4.61 MCV 80.1 MCHC 33.8 RDW 13.0 D MPV 9.2 Neutrophils % 61.3 Lymphocytes % 26.2 Monocytes % 5.7 Eosinophils % 6.0 H Basophils % 0.8 - Medications Given in the ED: ED Medications Discontinued Medications Generic Name Dose Route Start Last Admin Trade Name Freq PRN Reason Stop Dose Admin Diphenhydramine HCl 25 mg 08/28/18 17:47 08/28/18 18:25 Benadryl Injection - IVPUSH 08/28/18 17:48 25 mg ONCE ONE Administration Metoclopramide HCl 10 mg 08/28/18 17:47 08/28/18 18:25 Reglan Injection - IVPUSH 08/28/18 17:48 10 mg ONCE ONE Administration Medical Decision Making - Medical Decision Making 08/28/18 21:[address] Wallace. Patient is 53F with a history of HTN, DM, Hep C, ?CVA 2014 though MRI negative, Seizure disorder, MARILU, depression and anxiety here today with possible seizure. Vitals normal and stable. Story not consistent with seizure. Labs normal. CXR normal. Will discharge home with instructions to follow up with neurology. Return precautions given. Patient reassessed, feels fine and normal. *DC/Admit/Observation/Transfer Diagnosis at time of Disposition: Seizure - Discharge Dispostion Disposition: HOME Condition at time of disposition: Good Decision to Admit order: No - Referrals - Patient Instructions Printed Discharge Instructions: DI for Seizure Disorder -- Adult Additional Instructions: Please follow up with your neurologist this week. Please return if you have any new, worsening or concerning symptoms, especially another seizures. - Post Discharge Activity
[2018-08-28 20:36] LABS: ALBUMIN 3.8 g/dl (3.4-5.0); ALK PHOS 76 U/L (45-117); ANION GAP 10 MMOL/L (8-16); BILIRUBIN,TOTAL 0.4 mg/dL (0.2-1); BLOOD UREA NITROGEN 10 mg/dL (7-18); CALCIUM 9.8 mg/dL (8.5-10.1); CHLORIDE 100 mmol/L (98-107); CO2 28 mmol/L (21-32); CREATININE 0.9 mg/dL (0.55-1.3); GLUCOSE,RANDOM 132 mg/dL (74-106); POTASSIUM 4.1 mmol/L (3.5-5.1); SGOT/AST 22 U/L (15-37); SGPT/ALT 25 U/L (13-61); SODIUM 138 mmol/L (136-145); TOT PROT 7.6 g/dl (6.4-8.2)
[2018-08-28 22:54] VITALS: BP 126/78; PULSE 88; TEMP 98.5
--- NOTE | 2018-08-29 15:01 | EKG ---
Test Reason : Blood Pressure : / mmHG Vent. Rate : 093 BPM Atrial Rate : 093 BPM P-R Int : 148 ms QRS Dur : 088 ms QT Int : 384 ms P-R-T Axes : 054 -40 052 degrees QTc Int : 477 ms NORMAL SINUS RHYTHM LEFT AXIS DEVIATION MINIMAL VOLTAGE CRITERIA FOR LVH, MAY BE NORMAL VARIANT ABNORMAL ECG WHEN COMPARED WITH ECG OF 19-MAY-2018 21:11, NO SIGNIFICANT CHANGE WAS FOUND Confirmed by ANA LUISA MCINTOSH MD ([id number]) on 08/29/2018 3:01:20 PM Referred By: Confirmed By:ANA LUISA MCINTOSH MD
== END 2018-08-28 22:54 | disposition home or self-care (01) ==
LOC: JER 16:40
PROC: 3E033GC Introduction of Other Therapeutic Substance into Peripheral Vein, Percutaneous Approach (ICD-10-PCS; principal; 2018-08-28)
PROC: 3E033GC Introduction of Other Therapeutic Substance into Peripheral Vein, Percutaneous Approach (ICD-10-PCS; 2018-08-28)
DX: G40.909 Epilepsy, unspecified, not intractable, without status epilepticus (principal); I25.10 Atherosclerotic heart disease of native coronary artery without angina pectoris; I11.0 Hypertensive heart disease with heart failure; I50.33 Acute on chronic diastolic (congestive) heart failure; E03.9 Hypothyroidism, unspecified; E11.8 Type 2 diabetes mellitus with unspecified complications; Z79.4 Long term (current) use of insulin; E78.00 Pure hypercholesterolemia, unspecified; G47.33 Obstructive sleep apnea (adult) (pediatric); F41.8 Other specified anxiety disorders; F32.9 Major depressive disorder, single episode, unspecified; I69.854 Hemiplegia and hemiparesis following other cerebrovascular disease affecting left non-dominant side; B18.2 Chronic viral hepatitis C
CPT/HCPCS: 36415; 71046-TC-FY; 80053; 81003; 81015; 84484; 84703; 85025; 93005; 93010; 96374; 96375; 99283-25

== ENCOUNTER 2018-12-13 13:46 | Emergency (ER) | payer OTHER ==
[2018-12-13 14:04] VITALS: BP 108/66; PULSE 105; TEMP 97.9; BMI 47.2
--- NOTE | 2018-12-13 14:04 | PDOC ---
Rapid Medical Evaluation Medical Evaluation: Allergies Allergy/AdvReac Type Severity Reaction Status Date / Time Iodinated Contrast- Oral and Allergy Intermediate Itching Verified 08/28/18 17: 08 IV Dye [Iodinated Contrast Media - IV Dye] azithromycin AdvReac Intermediate Itching Verified 08/28/18 17:08 I have performed a brief in-person evaluation of this patient. The patient presents with a chief complaint of: HTN, DM, Hep C, ?CVA 2014 though MRI negative, Seizure disorder, MARILU, depression and anxiety, COPD was sent from PMD for COPD exacerbation; having SOB, chest tightness x3-4 days; also with nasal congestion and dry cough; denies chest pain; also c/o R knee pain for past few days (denies trauma) Pertinent physical exam findings: Poor breath sounds, in NAD, no pedal edema, no calf tenderness, mild TTP along medial aspect R knee I have ordered the following: Labs, CXR, duonebs, steroids, xray The patient will proceed to the ED for further evaluation. 12/13/18 13:59
[2018-12-13] MEDS ORDERED: ACETAMINOPHEN 325 MG TABLET (FP) PO ONE (14:05)
[2018-12-13] MEDS ORDERED: predniSONE 20 MG TABLET (UD) PO ONE (14:05)
[2018-12-13] MEDS ORDERED: predniSONE 20 MG TABLET (UD) ONE (14:51)
[2018-12-13] MEDS ORDERED: ACETAMINOPHEN 325 MG TABLET (FP) ONE (14:51)
[2018-12-13] MEDS ORDERED: ALBUTEROL SO4 2.5/IPRATROPIUM 0.5 INH SOL 3 ML VIAL.NEB. NEB ONE ×2 (14:51→15:54)
[2018-12-13] MEDS: ALBUTEROL SO4 2.5/IPRATROPIUM 0.5 INH SOL 3 ML VIAL.NEB. NEB SCH ×3 (14:56→15:58)
[2018-12-13 15:14] LABS: BASO % 0.4 % (0-2.0); EOS % 6.1 % (0-4.5); HEMOGLOBIN 12.4 GM/dL (10.7-15.3); LYMPH % 25.4 % (8-40); MCHC 31.8 g/dl (32.0-36.0); MEAN CELL VOLUME 81.7 fl (80-96); MEAN PLT VOLUME 9.8 fl (7.5-11.1); MONO % 7.5 % (3.8-10.2); NEUT % 60.6 % (42.8-82.8); PLATELET COUNT 222 K/MM3 (134-434); RBC 4.77 M/mm3 (3.60-5.2); RDW 13.4 % (11.6-15.6); WHITE BLOOD COUNT 8.4 K/mm3 (4.0-10.0)
--- NOTE | 2018-12-13 16:00 | EKG ---
Test Reason : Blood Pressure : / mmHG Vent. Rate : 095 BPM Atrial Rate : 095 BPM P-R Int : 144 ms QRS Dur : 086 ms QT Int : 376 ms P-R-T Axes : 048 -30 032 degrees QTc Int : 472 ms NORMAL SINUS RHYTHM LEFT AXIS DEVIATION MINIMAL VOLTAGE CRITERIA FOR LVH, MAY BE NORMAL VARIANT ABNORMAL ECG WHEN COMPARED WITH ECG OF 28-AUG-2018 18:16, NO SIGNIFICANT CHANGE WAS FOUND Confirmed by LUCIE MENDOZA, LESLI ([id number]) on 12/13/2018 4:00:11 PM Referred By: Confirmed By:LESLI FAULKNER MD
--- NOTE | 2018-12-13 16:04 | PDOC ---
Documentation entered by Sanaz Chan SCRIBE, acting as scribe for Nick Avilez MD. Nick Avilez MD: This documentation has been prepared by the Dustin marte Daisy, SCRIBE, under my direction and personally reviewed by me in its entirety. I confirm that the documentation accurately reflects all work, treatment, procedures, and medical decision making performed by me. History of Present Illness - General Chief Complaint: Shortness of Breath Stated Complaint: SENT BY PCP Time Seen by Provider: 12/13/18 13:59 History Source: Patient Exam Limitations: No Limitations - History of Present Illness Initial Comments: 12/13/18 15:41 The patient is a PMH of HTN, DM, COPD, CVA (in 2015, with left sided residual weakness), and anxiety who presents to the ER for evaluation of nonproductive cough and chest tightness for the past 2 days. There was associated nasal congestion. Patient went to see one of her doctors earlier today and told to come to the ER for further evaluation. She has been using her inhaler and nebulizer at home. She also uses cpap at night. She reports subjective fevers. Patient is also complaining to right knee pain that started after she went to get the phone and felt her knee pop. No falls or other injuries. Pt denies any cp, n/v, diaphoress, abd pain, back pain, calf pain/swelling, hemoptysis. Allergies: Iodine contrast, azithromycin Endo: Dr. Hugo Past History - Past Medical History Allergies/Adverse Reactions: Allergies Allergy/AdvReac Type Severity Reaction Status Date / Time Iodinated Contrast- Oral and Allergy Intermediate Itching Verified 08/28/18 17: 08 IV Dye [Iodinated Contrast Media - IV Dye] azithromycin AdvReac Intermediate Itching Verified 08/28/18 17:08 Home Medications: Ambulatory Orders Fluoxetine HCl [Prozac -] 40 mg PO DAILY 09/15/14 Albuterol Sulfate Inhaler - [Ventolin HFA Inhaler -] 1 - 2 inh PO QID 03/15/16 clonazePAM [Klonopin -] 0.5 mg PO DAILY PRN 05/12/17 Atorvastatin Ca [Lipitor] 20 mg PO HS 09/09/17 Tiotropium [place] [Spiriva] 1 inh PO DAILY 09/09/17 Loratadine [Claritin] 10 mg PO DAILY 09/11/17 Albuterol 2.5/Ipratropium 0.5 [Duoneb -] 1 amp NEB RQID #120 amp 10/31/17 Furosemide [Lasix -] 40 mg PO DAILY 04/06/18 Sitagliptin Phos/Metformin HCl [Janumet Xr 50-500 mg Tablet] 1 each PO DAILY 07/17 Montelukast Sodium [Singulair] 10 mg PO DAILY 04/12/18 Semaglutide [Ozempic] 1 mg SQ Q7D 06/04/18 Gabapentin [Neurontin] 600 mg PO TID 08/02/18 Lisinopril [Prinivil] 10 mg PO DAILY 09/28/18 Metoprolol Succinate [Toprol Xl] 25 mg PO DAILY 09/28/18 Hydrocodone/Acetaminophen [[place] 10-325 Tablet] 1 each PO BID PRN #60 tablet MDD 2 11/28/18 Insulin Glargine,Hum.rec.anlog [Basaglar Kwikpen U-100] 35 unit SQ BID 11/28/18 Asthma: Yes Cardiac Disorders: No 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) COPD: Yes CHF: No Dementia: No Diabetes: Yes GI Disorders: No Disorders: No HTN: Yes Hypercholesterolemia: Yes Liver Disease: Yes (hep C - treated) Psychiatric Problems: Yes Seizures: Yes Thyroid Disease: Yes (hypothyroid) - Surgical History Abdominal Surgery: Yes (UMBILICAL HERNIA) - Immunization History Immunization Up to Date: No - Suicide/Smoking/Psychosocial Hx Smoking History: Former smoker Have you smoked in the past 12 months: No If you are a former smoker, when did you quit?: 2014 Information on smoking cessation initiated: No 'Breaking Loose' booklet given: 09/16/14 Hx Alcohol Use: No Drug/Substance Use Hx: No Substance Use Type: None Hx Substance Use Treatment: No Review of Systems - Review of Systems Able to Perform ROS?: Yes Comments:: 12/13/18 15:48 Constitutional - Pt denies Chills or weakness (+) subj. fevers HEENT: denies vision changes, sore throat Respiratory: Denies shortness of breath or hemoptysis (+) cough. Cardiac: denies chest pain, palpitations, light headedness, leg swelling (+) chest tightness. Abd/GI: denies abd pain, nausea, vomiting, blood per rectum, melena, diarrhea : denies dysuria, frequency, discharge Musculskelatal - denies back pain, joint swelling (+) right knee pain. skin - denies bruising, erythema, rash neurological: denies headache, numbness, focal weakness, tingling, ataxia, weakness hematologic: denies anemia, easy bruising, easy bleeding *Physical Exam - Vital Signs Last Vital Signs Temp Pulse Resp BP Pulse Ox 97.9 F 105 H 16 108/66 98 12/13/18 14:00 12/13/18 14:00 12/13/18 14:00 12/13/18 14:00 12/13/18 14:00 - Physical Exam Comments: 12/13/18 16:02 GENERAL: The patient is awake, alert, and fully oriented, anxious appearing but in no acute distress HEAD: Normocephalic, atraumatic. EYES: extraocular movements intact, sclera anicteric, conjunctiva clear. ENT: Normal voice, Moist mucous membranes. NECK: Normal range of motion, supple LUNGS: Breath sounds equal, clear to auscultation bilaterally. No wheezes, no rhonchi, no rales. HEART: Regular rate and rhythm, normal S1 and S2 without murmur, rub or gallop. ABDOMEN: Soft, nontender, normoactive bowel sounds. No guarding, no rebound. . No CVA tenderness EXTREMITIES: Normal range of motion, no edema. Mild tenderness to palpation on the medial aspect of the right knee, normal flexion and extension, negative valgus or varus, no calf tenderness NEUROLOGICAL: No facial assymetry, Normal speech, all 4 extremities spontaneously and symmetrically PSYCH: Normal mood, normal affect. SKIN: Warm, Dry, normal turgor, Heart Score/ECG Review - ECG Impressions Comment:: 12/13/18 16:03 Twelve-lead EKG was performed and reviewed by me. There is normal sinus rhythm with a normal rate. Rate of 95 Left axis deviation Normal R wave progression No ST changes suggestive of acute ischemia ED Treatment Course - LABORATORY CBC & Chemistry Diagram: 12/13/18 14:42 12/13/18 14:42 - ADDITIONAL ORDERS Additional order review: 12/13/18 14:42 RBC 4.77 MCV 81.7 MCHC 31.8 L RDW 13.4 MPV 9.8 Neutrophils % 60.6 Lymphocytes % 25.4 Monocytes % 7.5 Eosinophils % 6.1 H Basophils % 0.4 - Medications Given in the ED: ED Medications Discontinued Medications Generic Name Dose Route Start Last Admin Trade Name Elmer PRN Reason Stop Dose Admin Acetaminophen 975 mg 12/13/18 14:05 12/13/18 14:54 Tylenol - PO 12/13/18 14:06 975 mg ONCE ONE Administration Albuterol/Ipratropium 1 amp 12/13/18 14:15 12/13/18 14:56 Duoneb - NEB 12/13/18 14:46 1 amp Q15M SHAUN Administration Prednisone 60 mg 12/13/18 14:12/13/18 14:54 Deltasone - PO 12/13/18 14:06 60 mg ONCE ONE Administration Medical Decision Making - Medical Decision Making 12/13/18 16:04 53y F hx of htn, copd, dm, cva (2014 with residual L sided weakness), anxiety, presents with complaint of cough x several days associated with nasal congestion with subjective chills. no recent travel or known sick contacts. no leg swelling but pt notes R knee pain after getting up a few days ago when she got the phone. On exam the patient is a anxious appearing but otherwise in no distress, she has clear lungs. Her right knee reveals mild tenderness to palpation on the medial aspect, normal range of motion - will obtain x-ray to rule out fracture. Frontal for the patient's symptoms includes anemia, metabolic derangements, bronchitis, COPD exacerbation, pna Awaiting blood work to screen for anemia, metabolic derangements, ACS, this x- ray to screen for pneumonia the patient was written for nebulizers and steroids in triage 12/13/18 18:06 labs reviewed cxr and knee xray neg for fx pt feeling improved will dc pt suspect viral URI will have pt fu with pmd I discussed the physical exam findings, ancillary test results and final diagnoses with the patient. I answered all of the patient's questions. The patient was satisfied with the care received and felt comfortable with the discharge plan and treatment plan. The patient will call their primary care physician within 24 hours to arrange follow-up and will return to the Emergency Department with any new, persistent or worsening symptoms. *DC/Admit/Observation/Transfer Diagnosis at time of Disposition: Upper respiratory infection Qualifiers: URI type: unspecified viral URI Qualified Code(s): J06.9 - Acute upper respiratory infection, unspecified Knee pain Qualifiers: Chronicity: acute Laterality: right Qualified Code(s): M25.561 - Pain in right knee - Discharge Dispostion Disposition: HOME Condition at time of disposition: Improved Decision to Admit order: No - Referrals Referrals: Damaris Solis MD [Primary Care Provider] - - Patient Instructions Printed Discharge Instructions: DI for Viral Upper Respiratory Infection -- Adult Additional Instructions: Return to the emergency department immediately with ANY new, persistent or worsening symptoms. You MUST call and follow up with your doctor in 3 or 4 days for further evaluation of your symptoms. Results were discussed with you. Please make sure your doctor reviews the results of your emergency evaluation. - Post Discharge Activity
[2018-12-13 16:07] LABS: ALBUMIN 3.5 g/dl (3.4-5.0); ALK PHOS 68 U/L (45-117); ANION GAP 8 MMOL/L (8-16); BILIRUBIN,TOTAL 0.2 mg/dL (0.2-1); BLOOD UREA NITROGEN 14 mg/dL (7-18); CALCIUM 8.9 mg/dL (8.5-10.1); CHLORIDE 105 mmol/L (98-107); CO2 26 mmol/L (21-32); CREATININE 0.7 mg/dL (0.55-1.3); GLUCOSE,RANDOM 144 mg/dL (74-106); N-TERMINAL BNP 39.9 pg/ml (5-125); POTASSIUM 4.2 mmol/L (3.5-5.1); SGOT/AST 17 U/L (15-37); SGPT/ALT 18 U/L (13-61); SODIUM 139 mmol/L (136-145); TOT PROT 7.5 g/dl (6.4-8.2)
== END 2018-12-13 18:54 | disposition home or self-care (01) ==
LOC: JER 13:46
PROC: 3E0F7GC Introduction of Other Therapeutic Substance into Respiratory Tract, Via Natural or Artificial Opening (ICD-10-PCS; principal; 2018-12-13)
DX: J06.9 Acute upper respiratory infection, unspecified (principal); M25.561 Pain in right knee; J44.9 Chronic obstructive pulmonary disease, unspecified; I10 Essential (primary) hypertension; E11.9 Type 2 diabetes mellitus without complications; Z79.4 Long term (current) use of insulin; F41.9 Anxiety disorder, unspecified; I69.854 Hemiplegia and hemiparesis following other cerebrovascular disease affecting left non-dominant side; E03.9 Hypothyroidism, unspecified; Z86.19 Personal history of other infectious and parasitic diseases; Z86.69 Personal history of other diseases of the nervous system and sense organs
CPT/HCPCS: 36415; 71046-TC-FY; 73564-TC-RT-FY; 80053; 83880; 84484; 85025; 93005; 93010; 99282-25

== ENCOUNTER 2019-01-17 17:00 | Emergency (ER) | payer OTHER ==
--- NOTE | 2019-01-17 17:59 | PDOC ---
History of Present Illness - General Chief Complaint: Seizure Stated Complaint: SEIZURE Time Seen by Provider: 01/17/19 17:58 - History of Present Illness Initial Comments: 01/17/19 17:58 Ms. Negrete is a 53 yo female w/ pmh of HTN, DM, COPD, Hep C s/p treatment, prior CVA (2015, residual L sided weakness and walks with a walker), anxiety, seizure disorder, bipolar disorder, and depression who presents for evaluation of chest pain and seizure. Patient reports she started to have midline chest pain while walking around the [place]. Patient went to the bathroom and urinated; following this was found in the hallway and was noted to seize 2x; each lasting approximately 5 minutes. Patient reports no changes in her medications or difficulty taking them lately. Of note, patient reports she was evaluated on the at [facility] following a suicide attempt where she "took a bunch of pills" that she cannot recall. Denies any HI or SI now. Was evaluated and discharged. Patient was discharged for outpatient follow-up. The patient denies shortness of breath, headache and dizziness. Denies fever, chills, nausea, vomit, diarrhea and constipation. Denies dysuria, frequency, urgency and hematuria. Past History - Past Medical History Allergies/Adverse Reactions: Allergies Allergy/AdvReac Type Severity Reaction Status Date / Time Iodinated Contrast- Oral and Allergy Intermediate Itching Verified 08/28/18 17: 08 IV Dye [Iodinated Contrast Media - IV Dye] azithromycin AdvReac Intermediate Itching Verified 08/28/18 17:08 Home Medications: Ambulatory Orders Fluoxetine HCl [Prozac -] 40 mg PO DAILY 09/15/14 Albuterol Sulfate Inhaler - [Ventolin HFA Inhaler -] 1 - 2 inh PO QID 03/15/16 clonazePAM [Klonopin -] 0.5 mg PO DAILY PRN 05/12/17 Atorvastatin Ca [Lipitor] 20 mg PO HS 09/09/17 Tiotropium [place] [Spiriva] 1 inh PO DAILY 09/09/17 Loratadine [Claritin] 10 mg PO DAILY 09/11/17 Albuterol 2.5/Ipratropium 0.5 [Duoneb -] 1 amp NEB RQID #120 amp 10/31/17 Furosemide [Lasix -] 40 mg PO DAILY 04/06/18 Sitagliptin Phos/Metformin HCl [Janumet Xr 50-500 mg Tablet] 1 each PO DAILY 07/17 Montelukast Sodium [Singulair] 10 mg PO DAILY 04/12/18 Semaglutide [Ozempic] 1 mg SQ Q7D 06/04/18 Gabapentin [Neurontin] 600 mg PO TID 08/02/18 Lisinopril [Prinivil] 10 mg PO DAILY 09/28/18 Metoprolol Succinate [Toprol Xl] 25 mg PO DAILY 09/28/18 Insulin Glargine,Hum.rec.anlog [Basaglar Kwikpen U-100] 35 unit SQ BID 11/28/18 Guaifenesin Dm [Robitussin Dm -] 10 ml PO Q6H PRN #1 bot 12/13/18 Hydrocodone/Acetaminophen [[place] 10-325 Tablet] 1 each PO BID PRN #60 tablet MDD 2 12/27/18 Asthma: Yes Cardiac Disorders: No 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) COPD: Yes CHF: No Dementia: No Diabetes: Yes GI Disorders: No Disorders: No HTN: Yes Hypercholesterolemia: Yes Liver Disease: Yes (hep C - treated) Psychiatric Problems: Yes Seizures: Yes Thyroid Disease: Yes (hypothyroid) - Surgical History Abdominal Surgery: Yes (UMBILICAL HERNIA) - Immunization History Immunization Up to Date: No - Suicide/Smoking/Psychosocial Hx Smoking History: Former smoker Have you smoked in the past 12 months: No If you are a former smoker, when did you quit?: 2014 'Breaking Loose' booklet given: 09/16/14 Hx Alcohol Use: No Drug/Substance Use Hx: No Substance Use Type: None Hx Substance Use Treatment: No Review of Systems - Review of Systems Comments:: 01/17/19 17:58 GENERAL/CONSTITUTIONAL: No fever or chills. No weakness. HEAD, EYES, EARS, NOSE AND THROAT: No change in vision. No ear pain or discharge. No sore throat. CARDIOVASCULAR: +Midline chest pain as described. No shortness of breath RESPIRATORY: No cough, wheezing, or hemoptysis. GASTROINTESTINAL: No nausea, vomiting, diarrhea or constipation. GENITOURINARY: No dysuria, frequency, or change in urination. MUSCULOSKELETAL: No joint or muscle swelling or pain. No neck or back pain. SKIN: No rash NEUROLOGIC: +Seizure x2 as noted with 10 minute post ictal state following.. No headache, vertigo, or change in strength/sensation. ENDOCRINE: No increased thirst. No abnormal weight change HEMATOLOGIC/LYMPHATIC: No anemia, easy bleeding, or history of blood clots. ALLERGIC/IMMUNOLOGIC: No hives or skin allergy. *Physical Exam - Physical Exam Comments: 01/17/19 17:58 GENERAL: +Patient obese. Awake, alert, and fully oriented, in no acute distress HEAD: No signs of trauma, normocephalic, atraumatic EYES: PERRLA, EOMI, sclera anicteric, conjunctiva clear ENT: Auricles normal inspection, hearing grossly normal, nares patent, oropharynx clear without exudates. Moist mucosa NECK: Normal ROM, supple, no lymphadenopathy, JVD, or masses LUNGS: No distress, speaks full sentences, clear to auscultation bilaterally HEART: Regular rate and rhythm, normal S1 and S2, no murmurs, rubs or gallops, peripheral pulses normal and equal bilaterally. ABDOMEN: Soft, nontender, normoactive bowel sounds. No guarding, no rebound. No masses EXTREMITIES: Normal inspection, Normal range of motion, no edema. No clubbing or cyanosis. NEUROLOGICAL: Cranial nerves II through XII grossly intact. Normal speech, normal gait, no focal sensorimotor deficits SKIN: Warm, Dry, normal turgor, no rashes or lesions noted. ED Treatment Course - LABORATORY CBC & Chemistry Diagram: 01/17/19 18:40 01/17/19 18:40 Medical Decision Making - Medical Decision Making 01/17/19 19:07 Ms. Negrete is a 53 yo female w/ pmh as described who presents for evaluation of symptoms of chest pain and possible seizure. Patient will be evaluated with cardiac workup. Patient signed out to Dr. Maldonado for further evaluation. *DC/Admit/Observation/Transfer Diagnosis at time of Disposition: Seizure Chest pain Qualifiers: Chest pain type: unspecified Qualified Code(s): R07.9 - Chest pain, unspecified - Referrals Referrals: Damaris Solis MD [Primary Care Provider] - - Patient Instructions - Post Discharge Activity
[2019-01-17 18:41] VITALS: TEMP 98.1; BMI 49.6
--- NOTE | 2019-01-17 19:18 | PDOC ---
*Physical Exam - Vital Signs Last Vital Signs Temp Pulse Resp BP Pulse Ox 98.1 F 118 H 18 92/78 100 01/17/19 18:05 01/17/19 18:05 01/17/19 18:05 01/17/19 18:05 01/17/19 18:05 ED Treatment Course - LABORATORY CBC & Chemistry Diagram: 01/17/19 18:40 01/17/19 19:43 - RADIOLOGY Radiograph Interpretation: Non-con Head CT THIS IS A PRELIMINARY REPORT FROM [facility] DATE OF SERVICE: 2019-01-18 00:25:01 IMAGES: 169 EXAM: HEAD CT WITHOUT CONTRAST HISTORY: Headache COMPARISON: None. FINDINGS: The ventricular system is midline and nondilated. The sulcal pattern is normal for the patient's age. There is no bleed, mass, extra-axial fluid collection or mass effect. No skull fracture or skull lesion is identified. The visualized paranasal sinuses and mastoid air cells are clear. IMPRESSION: No acute pathology One or more of the following dose reduction techniques were used: automated exposure control, adjustment of the mA and/or kV according to patient size, use of iterative reconstructive technique. THIS DOCUMENT HAS BEEN ELECTRONICALLY SIGNED Marco Conrad MD 01/18/2019 00:35 EST Medical Decision Making - Medical Decision Making 01/17/19 19:16 Received sign out from resident Dr. Harrison. In short, pt is a 53 y/o female presenting with multiple seizures and chest pain. Known seizure disorder managed with Topamax. Labs revealed mild leukocytosis without obvious clinical significance. Lactic acid not elevated. Electrolytes within normal limits. D-dimer negative. Head CT unremarkable. Tib/fib plain film unremarkable for acute fracture. No seizure activity observed during the course of the ED workup. Suspect stable for discharge home with outpatient f/u. ED Attending discharged pt. *DC/Admit/Observation/Transfer Diagnosis at time of Disposition: Seizure Chest pain Qualifiers: Chest pain type: unspecified Qualified Code(s): R07.9 - Chest pain, unspecified - Discharge Dispostion Disposition: HOME Condition at time of disposition: Stable - Referrals Referrals: Damaris Solis MD [Primary Care Provider] - - Patient Instructions Printed Discharge Instructions: DI for Seizure Disorder -- Adult, DI for Chest Pain Additional Instructions: Please take all medications as prescribed. Please follow up with your neurologist. Please follow up with the fulfillment associate as well for further evaluation of your chest pain. Please return to the ED with any further concerns or complaints. - Post Discharge Activity
[2019-01-17 19:22] LABS: BASO % 0.8 % (0-2.0); EOS % 5.6 % (0-4.5); HEMATOCRIT 35.4 % (32.4-45.2); HEMOGLOBIN 11.5 GM/dL (10.7-15.3); LYMPH % 19.7 % (8-40); MCH 26.1 pg (25.7-33.7); MCHC 32.6 g/dl (32.0-36.0); MEAN CELL VOLUME 80.2 fl (80-96); MEAN PLT VOLUME 9.8 fl (7.5-11.1); MONO % 5.7 % (3.8-10.2); NEUT % 68.2 % (42.8-82.8); PLATELET COUNT 298 K/MM3 (134-434); RBC 4.41 M/mm3 (3.60-5.2); RDW 14.1 % (11.6-15.6); WHITE BLOOD COUNT 12.6 K/mm3 (4.0-10.0)
[2019-01-17] MEDS ORDERED: TOPIRAMATE 200 MG TABLET (FP) PO ONE (20:53)
--- NOTE | 2019-01-17 20:57 | PDOC ---
Documentation entered by Edwina Black SCRIBE, acting as scribe for Maria T Arzate DO. Maria T Arzate DO: This documentation has been prepared by the estuardo, Edwina Black SCRIBE, under my direction and personally reviewed by me in its entirety. I confirm that the documentation accurately reflects all work, treatment, procedures, and medical decision making performed by me. Attending Attestation - Resident Resident Name: Ambrocio Harrison - ED Attending Attestation I have performed the following: I have examined & evaluated the patient, The case was reviewed & discussed with the resident, I agree w/resident's findings & plan, Exceptions are as noted - HPI HPI: 01/17/19 18:52 The patient is a 53 year old female with past medical history significant for seizure (on Topamax) presents to the emergency department with chest pain and s/ p a seizure episodes. The patient presents with midline chest pain that presented while she was out with her aide. The patient reports she went to the bathroom, and she was found on the hallway, and noted to have 2 episodes of seizure, lasting 5 minutes. Per aide, she back at baseline now. The patient reports being compliant with medication today, states she took 200 mg of topamax. Currently, the patient reports she had an headache, lightheadedness, generalized weakness and intermittent chest pain associated with sensation of racing heart. Denies visual changes. The patient reports her water pills finished about 2 weeks ago, and hasn't been compliant since. - Physicial Exam PE: 01/17/19 20:41 Constitutional: Awake, alert, oriented. No acute distress. Head: Normocephalic. Atraumatic Eyes: PERRL. EOMI. Conjunctivae are not pale. ENT: Mucous membranes are moist and intact. Posterior pharynx without exudates or erythema. Uvula midline. Neck: Supple. Full ROM. No lymphadenopathy. Cardiovascular: +tachycardia. Regular rate and rhythm. S1, S2 regular. Distal pulses are 2+ and symmetric. Pulmonary/Chest: No evidence of respiratory distress. Clear to auscultation bilaterally No wheezing, rales or rhonchi. Abdominal: +soft, obese. There is no tenderness. No rebound, guarding or rigidity. Back: No CVA tenderness. Musculoskeletal: No edema. No cyanosis. No clubbing. Full range of motion in all extremities. No calf tenderness. Radial/pedal pulses are intact and 2+ bilaterally Skin: +Ecchymosis to the right tibia. Skin is warm and dry. No petechiae. No purpura. Neurological: No focal findings. Alert and oriented to person, place, and time. Cranial nerves II-XII are grossly intact. Normal speech. Strength is grossly symmetric. No sensory deficits. Psychiatric: Good eye contact. Normal interaction, affect and behavior. - Medical Decision Making 01/17/19 20:49 I, Dr. Maria T Arzate, DO, attest that this document has been prepared under my direction and personally reviewed by me in its entirety. I further attest, that it accurately reflects all work, treatment, procedures and medical decision -making performed by me. 01/17/19 20:50 a/p: 53yo female with hx of seizures with 2 witnessed seizures today -pt also c/o wt gain, le edema and intermittent episodes of cp -pt denies sob, however c/o wt gain, le edema -ran out of her water pill a few days ago -admits to taking her topamax 200mg as directed, due for a dose at 8p -c/o feeling lightheaded -will send labs, head ct, trop, ekg, cxr -will monitor and reassess 01/17/19 20:56 cxr with mild vascular congestion 01/17/19 20:57 lactate neg mildly elevated wbc 01/18/19 01:[address] negative tib/fib xray neg pt feeling much better no seizure activity in the ED stable for dc to home discussed labs and imaging results with the patient *DC/Admit/Observation/Transfer Diagnosis at time of Disposition: Seizure Chest pain Qualifiers: Chest pain type: unspecified Qualified Code(s): R07.9 - Chest pain, unspecified - Discharge Dispostion Disposition: HOME Condition at time of disposition: Stable Decision to Admit order: No - Referrals Referrals: Damaris Solis MD [Primary Care Provider] - - Patient Instructions Printed Discharge Instructions: DI for Seizure Disorder -- Adult, DI for Chest Pain Additional Instructions: Please take all medications as prescribed. Please follow up with your neurologist. Please follow up with the solid waste analyst as well for further evaluation of your chest pain. Please return to the ED with any further concerns or complaints. - Post Discharge Activity Heart Score/ECG Review - ECG Intrepretation Comment:: 01/17/19 20:54 sinus tach at 121, nl axis, nl interval, no acute st/t wave findings, lafb
[2019-01-17] MEDS ORDERED: SODIUM CHLORIDE 0.9% 1000 ML INFUS.BAG IV ONE ×2 (21:04→23:41)
[2019-01-17 21:16] LABS: ALBUMIN 3.9 g/dl (3.4-5.0); ALK PHOS 97 U/L (45-117); ANION GAP 9 MMOL/L (8-16); BILIRUBIN,TOTAL 0.3 mg/dL (0.2-1); BLOOD UREA NITROGEN 10.5 mg/dL (7-18); CALCIUM 9.5 mg/dL (8.5-10.1); CHLORIDE 110 mmol/L (98-107); CO2 21 mmol/L (21-32); GLUCOSE,RANDOM 155 mg/dL (74-106); N-TERMINAL BNP 25.6 pg/ml (5-125); POTASSIUM 3.9 mmol/L (3.5-5.1); SGOT/AST 17 U/L (15-37); SGPT/ALT 25 U/L (13-61); SODIUM 139 mmol/L (136-145); TOT PROT 8.2 g/dl (6.4-8.2)
[2019-01-17 21:59] LABS: EPI CELLS 6.4 /HPF (0-5/HPF); HYALINE CASTS 1 /lpf (0-8); URINE APPEARANCE CLEAR; URINE BACTERIA 24.5 /hpf (NEGATIVE); URINE BILIRUBIN NEGATIVE (NEGATIVE); URINE COLOR YELLOW; URINE GLUCOSE (UA) NEGATIVE (NEGATIVE); URINE KETONE NEGATIVE (NEGATIVE); URINE LEUK ESTERASE 2+ (NEGATIVE); URINE NITRITE NEGATIVE (NEGATIVE); URINE PROTEIN NEGATIVE (NEGATIVE); URINE RBC 2 /hpf (0-4); URINE UROBILINOGEN 0.2 mg/dL (0.2-1.0); URINE WBC 6 /hpf (0-5)
[2019-01-17] MEDS ORDERED: oxyCODONE HCL 5 MG TABLET PO ONE (22:27)
[2019-01-17] MEDS ORDERED: oxyCODONE HCL 5 MG TABLET ONE (22:28)
[2019-01-18 01:54] VITALS: BP 135/101; PULSE 100
--- NOTE | 2019-01-18 13:40 | EKG ---
Test Reason : Blood Pressure : / mmHG Vent. Rate : 121 BPM Atrial Rate : 121 BPM P-R Int : 148 ms QRS Dur : 086 ms QT Int : 342 ms P-R-T Axes : 053 -48 057 degrees QTc Int : 485 ms SINUS TACHYCARDIA LEFT ANTERIOR FASCICULAR BLOCK MINIMAL VOLTAGE CRITERIA FOR LVH, MAY BE NORMAL VARIANT ABNORMAL ECG WHEN COMPARED WITH ECG OF 13-DEC-2018 14:23, NO SIGNIFICANT CHANGE WAS FOUND Confirmed by ELIN HOLLOWAY MD ([id number]) on 01/18/2019 1:39:53 PM Referred By: Confirmed By:ELIN HOLLOWAY MD
== END 2019-01-18 02:30 | disposition home or self-care (01) ==
LOC: JER 17:00
PROC: 3E0337Z Introduction of Electrolytic and Water Balance Substance into Peripheral Vein, Percutaneous Approach (ICD-10-PCS; principal; 2019-01-17)
DX: R07.9 Chest pain, unspecified (principal); G40.909 Epilepsy, unspecified, not intractable, without status epilepticus; I10 Essential (primary) hypertension; E11.9 Type 2 diabetes mellitus without complications; J44.9 Chronic obstructive pulmonary disease, unspecified; B18.2 Chronic viral hepatitis C; F41.9 Anxiety disorder, unspecified; F31.9 Bipolar disorder, unspecified; I69.854 Hemiplegia and hemiparesis following other cerebrovascular disease affecting left non-dominant side; R60.0 Localized edema; R63.5 Abnormal weight gain; Z68.42 Body mass index [BMI] 45.0-49.9, adult
CPT/HCPCS: 36415; 70450-TC; 71045-TC-FY; 73590-TC-RT-FY; 80053; 81003; 83605; 83880; 84484; 85025; 85379; 87086; 93005; 93010; 99283-25; J7030

== ENCOUNTER 2019-02-08 11:10 | Observation (INO) | payer OTHER ==
[2019-02-08 11:23] VITALS: BMI 48.2
[2019-02-08] MEDS ORDERED: ASPIRIN 81 MG CHEWABLE TABLETS PO ONE (12:36)
--- NOTE | 2019-02-08 12:47 | PDOC ---
History of Present Illness - General History Source: Patient Exam Limitations: No Limitations - History of Present Illness Initial Comments: 02/08/19 12:38 53 yo F with h/o DM HTN copd/ asthma prior CVA depression here with c/o not feeling right. pt states she is under a lot of stress as she lost her sister to AR / resp failure 2 weeks ago, and today she was being seen at therapy appointment, states she started having chest pain . also feel sob. c/o feeling nausea, did have one episode of emesis last pm. does c/o leg swelling right greater than left. chest pain is described as a pressure , like she cant breath like somone pushing on her chest. did not take aspirin today, stopped due to heavy menses. family h/o AR her sister in 's . pt has had cardiac workup of a stress test on monday ( 4 days ago) pt could not tolerate the test. pt is anxious, and depressed. denies suicidality, or homicidality. but was admitted [facility] one week ago for overdose suicide attempt. 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 jacquie quinonesl, meds : albuterol, prozac, 40 percocet 10/325 ( pain mangement) chronic hip pain janumet hydrozyzine gabapentin insulin 50/50 lisinopril 10 lasix 40 QD meloxicam. folic acid, vit D pramipexole 1mg [place] long acting insulin QAM 45 units. <Luz Sims - Last Filed: 02/08/19 16:50> <Brittney Avery - Last Filed: 02/08/19 17:57> - General Chief Complaint: Pain Stated Complaint: HYPERTENSION Past History - Past Medical History Asthma: Yes Cardiac Disorders: No 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) COPD: Yes (on inhalers) CHF: No Dementia: No Diabetes: Yes GI Disorders: No Disorders: No HTN: Yes Hypercholesterolemia: Yes Liver Disease: Yes (hep C - treated) Psychiatric Problems: Yes Seizures: Yes Thyroid Disease: Yes (hypothyroid) - Surgical History Abdominal Surgery: Yes (UMBILICAL HERNIA) - Immunization History Immunization Up to Date: No - Suicide/Smoking/Psychosocial Hx Smoking History: Former smoker Have you smoked in the past 12 months: No If you are a former smoker, when did you quit?: 5 YEARS AGO Information on smoking cessation initiated: No 'Breaking Loose' booklet given: 09/16/14 Hx Alcohol Use: No Drug/Substance Use Hx: No Substance Use Type: None Hx Substance Use Treatment: No <Luz Sims - Last Filed: 02/08/19 16:50> <Brittney Avery - Last Filed: 02/08/19 17:57> - Past Medical History Allergies/Adverse Reactions: Allergies Allergy/AdvReac Type Severity Reaction Status Date / Time Iodinated Contrast- Oral and Allergy Intermediate Itching Verified 02/08/19 11: 23 IV Dye [Iodinated Contrast Media - IV Dye] azithromycin AdvReac Intermediate Itching Verified 02/08/19 11:23 Home Medications: Ambulatory Orders Fluoxetine HCl [Prozac -] 40 mg PO DAILY 09/15/14 Albuterol Sulfate Inhaler - [Ventolin HFA Inhaler -] 1 - 2 inh PO QID 03/15/16 clonazePAM [Klonopin -] 0.5 mg PO DAILY PRN 05/12/17 Atorvastatin Ca [Lipitor] 20 mg PO HS 09/09/17 Tiotropium [place] [Spiriva] 1 inh PO DAILY 09/09/17 Loratadine [Claritin] 10 mg PO DAILY PRN 09/11/17 Albuterol 2.5/Ipratropium 0.5 [Duoneb -] 1 amp NEB RQID #120 amp 10/31/17 Furosemide [Lasix -] 40 mg PO DAILY 04/06/18 Sitagliptin Phos/Metformin HCl [Janumet Xr 50-500 mg Tablet] 1 each PO BID 04/11 Semaglutide [Ozempic] 1 mg SQ Q7D 06/04/18 Gabapentin [Neurontin] 600 mg PO TID 08/02/18 Lisinopril [Prinivil] 10 mg PO DAILY 09/28/18 Insulin Glargine,Hum.rec.anlog [Basaglar Kwikpen U-100] 45 unit SQ DAILY Guaifenesin Dm [Robitussin Dm -] 10 ml PO Q6H PRN #1 bot 12/13/18 Bisacodyl [Dulcolax -] 5 mg PO DAILY 01/28/19 Hydrocodone/Acetaminophen [[place] 10-325 Tablet] 1 each PO BID PRN #60 tablet MDD 2 01/28/19 Review of Systems - Review of Systems Constitutional: No: Chills, Diaphoresis HEENTM: No: Eye Pain Respiratory: Yes: Shortness of Breath. No: Cough, Orthopnea Cardiac (ROS): Yes: Chest Pain, Edema : No: Burning, Dysuria Musculoskeletal: No: Back Pain Integumentary: No: Bruising, Change in Color Neurological: No: Headache, Numbness Psychiatric: No: Frequent Crying Endocrine: No: Excessive Sweating All Other Systems: Reviewed and Negative <Luz Sims - Last Filed: 02/08/19 16:50> *Physical Exam - Vital Signs Last Vital Signs Temp Pulse Resp BP Pulse Ox 97.7 F 92 H 16 148/84 96 02/08/19 11:19 02/08/19 11:19 02/08/19 11:19 02/08/19 11:19 02/08/19 11:19 - Physical Exam Comments: 02/08/19 12:48 Awake alert notes distress lungs are clear bilaterally heart is okay no no murmurs rubs or gallops abdomen is soft nontender obese extremities are warm and well-perfused there is mild right sided nonpitting edema noted pulses are symmetric bilaterally neurological patient is alert and oriented 3 is anxious and tearful denies SI or HI skin is warm and dry <Luz Sims - Last Filed: 02/08/19 16:50> - Vital Signs Last Vital Signs Temp Pulse Resp BP Pulse Ox 97.9 F 88 99 H 125/64 99 02/08/19 14:09 02/08/19 14:09 02/08/19 16:21 02/08/19 16:21 02/08/19 16:21 <Brittney Avery - Last Filed: 02/08/19 17:57> Heart Score/ECG Review #1 General ECG Interpretation: Sinus Rhythm, Normal Rate (87), Normal Intervals, No acute ischemic changes <Luz Sims - Last Filed: 02/08/19 16:50> ED Treatment Course - LABORATORY CBC & Chemistry Diagram: 02/08/19 13:04 02/08/19 13:04 - RADIOLOGY Radiology Studies Ordered: Category Date Time Status CHEST PA & LAT [RAD] Stat Radiology 02/08/19 12:37 Ordered <Luz Sims - Last Filed: 02/08/19 16:50> - LABORATORY CBC & Chemistry Diagram: 02/08/19 13:04 02/08/19 13:04 - ADDITIONAL ORDERS Additional order review: Laboratory Results 02/08/19 02/08/19 02/08/19 13:07 13:07 13:04 Sodium 141 Potassium 3.9 Chloride 104 Carbon Dioxide 31 Anion Gap 6 L BUN 7.8 Creatinine 0.8 Est GFR (CKD-EPI)AfAm 98.93 Est GFR (CKD-EPI)NonAf 85.36 Random Glucose 182 H Calcium 8.9 Total Bilirubin 0.2 AST 10 L ALT 19 Alkaline Phosphatase 80 Creatine Kinase 74 Troponin I < 0.02 B-Natriuretic Peptide 125.7 H Total Protein 7.4 Albumin 3.7 Urine Color Yellow Urine Appearance Clear Urine pH 7.0 Ur Specific [place] 1.011 Urine Protein Negative Urine Glucose (UA) Trace Urine Ketones Negative Urine Blood 1+ H Urine Nitrite Negative Urine Bilirubin Negative Urine Urobilinogen 0.2 Ur Leukocyte Esterase Negative Urine WBC (Auto) 2 Urine RBC (Auto) 1 Urine Casts (Auto) 0 U Epithel Cells (Auto) 0.9 Urine Bacteria (Auto) 48.3 Opiates Screen Positive A* Methadone Screen Negative Barbiturate Screen Negative Phencyclidine Screen Negative Ur Amphetamines Screen Negative MDMA (Ecstasy) Screen Negative Benzodiazepines Screen Negative Cocaine Screen Negative U Marijuana (THC) Screen Negative 02/08/19 13:04 RBC 4.47 MCV 80.6 MCHC 33.0 RDW 14.2 MPV 9.0 Neutrophils % 56.1 Lymphocytes % 22.6 Monocytes % 5.6 Eosinophils % 15.2 H D Basophils % 0.5 - Medications Given in the ED: ED Medications Discontinued Medications Generic Name Dose Route Start Last Admin Trade Name Freq PRN Reason Stop Dose Admin Aspirin 324 mg 02/08/19 12:36 02/08/19 12:56 Asa - PO 02/08/19 12:37 324 mg ONCE ONE Administration <Brittney Avery - Last Filed: 02/08/19 17:57> Medical Decision Making - Medical Decision Making 02/08/19 12:49 53 yo F wit ho HTN DM HLD CVA copd/ asthma, ptsd depression and anxiety recent suicide attempt here today c/o chest pain sob. elevated bp 160 on home bp cuff. denies suicidal ideation. pt high risk for acs. will check cbc cmp ua utox,trop ekg cxr. may require admission r/o acs as recent stress test was prematurely aborted due to patient intoleratnce. 02/08/19 16:49 pt labs normal will admit r/o acs due to multiple risk factors. ekg nsr 87 bpm. <Luz Sims - Last Filed: 02/08/19 16:50> - Medical Decision Making Patient admitted to Dr. De Santiago for r/o ACS 02/08/19 17:57 <Brittney Avery - Last Filed: 02/08/19 17:57> *DC/Admit/Observation/Transfer - Discharge Dispostion Decision to Admit order: Yes <Luz Sims - Last Filed: 02/08/19 16:50> <Brittney Avery - Last Filed: 02/08/19 17:57> Diagnosis at time of Disposition: Chest pain - Referrals Referrals: Jacquie Solis MD [Primary Care Provider] - - Patient Instructions - Post Discharge Activity Forms/Work/School Notes: My Personal Safety Plan
[2019-02-08] MEDS ORDERED: ASPIRIN 325 MG TABLET ONE (12:59)
[2019-02-08 13:22] LABS: BASO % 0.5 % (0-2.0); EOS % 15.2 % (0-4.5); HEMOGLOBIN 11.9 GM/dL (10.7-15.3); LYMPH % 22.6 % (8-40); MCH 26.6 pg (25.7-33.7); MEAN CELL VOLUME 80.6 fl (80-96); MONO % 5.6 % (3.8-10.2); NEUT % 56.1 % (42.8-82.8); PLATELET COUNT 240 K/MM3 (134-434); RBC 4.47 M/mm3 (3.60-5.2); RDW 14.2 % (11.6-15.6); WHITE BLOOD COUNT 8.6 K/mm3 (4.0-10.0)
[2019-02-08 13:26] LABS: EPI CELLS 0.9 /HPF (0-5/HPF); HYALINE CASTS 0 /lpf (0-8); URINE APPEARANCE CLEAR; URINE BACTERIA 48.3 /hpf (NEGATIVE); URINE BILIRUBIN NEGATIVE (NEGATIVE); URINE COLOR YELLOW; URINE GLUCOSE (UA) TRACE (NEGATIVE); URINE KETONE NEGATIVE (NEGATIVE); URINE LEUK ESTERASE NEGATIVE (NEGATIVE); URINE NITRITE NEGATIVE (NEGATIVE); URINE PROTEIN NEGATIVE (NEGATIVE); URINE RBC 1 /hpf (0-4); URINE UROBILINOGEN 0.2 mg/dL (0.2-1.0); URINE WBC 2 /hpf (0-5)
[2019-02-08 13:37] LABS: ALBUMIN 3.7 g/dl (3.4-5.0); ALK PHOS 80 U/L (45-117); ANION GAP 6 MMOL/L (8-16); BILIRUBIN,TOTAL 0.2 mg/dL (0.2-1); BLOOD UREA NITROGEN 7.8 mg/dL (7-18); CALCIUM 8.9 mg/dL (8.5-10.1); CHLORIDE 104 mmol/L (98-107); CO2 31 mmol/L (21-32); CREATININE 0.8 mg/dL (0.55-1.3); GLUCOSE,RANDOM 182 mg/dL (74-106); N-TERMINAL BNP 125.7 pg/ml (5-125); POTASSIUM 3.9 mmol/L (3.5-5.1); SGOT/AST 10 U/L (15-37); SGPT/ALT 19 U/L (13-61); SODIUM 141 mmol/L (136-145); TOT PROT 7.4 g/dl (6.4-8.2)
[2019-02-08 14:11] LABS: COCAINE, UR NEGATIVE ng/ml (CUTOFF=300); METHADONE, UR NEGATIVE ng/ml (CUTOFF=300); PHENCYCLIDINE,URINE NEGATIVE ng/ml (CUTOFF=25); URINE AMPHETAMINES NEGATIVE ng/ml (CUTOFF=500); URINE BARBITURATES NEGATIVE ng/ml (CUTOFF=200); URINE BENZODIAZEPINES NEGATIVE ng/ml (CUTOFF=200)
[2019-02-08 14:12] LABS: OPIATES, URI POSITIVE ng/ml (CUTOFF=300)
--- NOTE | 2019-02-08 18:57 | PN ---
Teaching Attending Note Name of Resident: Geni Abreu ATTENDING PHYSICIAN STATEMENT I saw and evaluated the patient. I reviewed the resident's note and discussed the case with the resident. I agree with the resident's findings and plan as documented. SUBJECTIVE:53yo F wtih PMH DM, HTN, COPD, CVA and morbid obesity presented to the ER due to CP. developed shortly after waking up. assoc with sob. no other symptoms. states she took her BP and was 160/90. prior to taking her meds. shes been under a lot of stress due to the recent loss of her sister a few weeks ago who of heart attack. states she was scheduled for treadmill stress test earlier this week which was originally scheduled for routine which she was unable to complete becuase she was unable to run on treadmill and test was aborted. states she is complaint with her medications and no recent changes. also reports RLE swelling for a few days. denies fever, chills, N/V/C/D quit smoking >5 years ago sister with HI in 50s OBJECTIVE: Last Vital Signs Temp Pulse Resp BP Pulse Ox 97.9 F 88 99 H 125/64 99 02/08/19 14:09 02/08/19 14:09 02/08/19 16:21 02/08/19 16:21 02/08/19 16:21 General NAD CV S1 S2 RRR no murmur/rub/gallop no chest wall tendernes Lungs CTA B/L no wheezing/rales/rhonchi Abdomen soft NT/ND obese Extremities RLE swelling with mid alcocer tenderness ASSESSMENT AND PLAN: 53yo F wtih PMH DM, HTN, COPD, CVA and morbid obesity presented to the ER due to CP. 1. R/o ACS- likely induced by stress by the recent passing of her sister. had incomplete stress test earlier in the week. will admit to tele for cardiac monitoring. cardiac enzymes Q6H x3. 2. RLE edema- check doppler to r/o DVT 3. DM- cont home dosing of insulin. hold oral agents. iss and bgm 4. HTN- controlled. cont home medications 5. COPD- cont inhalers 6. CVA- cont asa/statin 7. Morbid obesity- BMI 48 8. DVT ppx- EAM
[2019-02-08] MEDS ORDERED: oxyCODONE HCL 5 MG TABLET ONE (19:10)
--- NOTE | 2019-02-08 20:00 | HP ---
CHIEF COMPLAINT:chest pain PCP: HISTORY OF PRESENT ILLNESS: Patient is a 53 year old female with past medical history of DM, HTN, HLD, COPD/ asthma, anxiety, depression, presented to the ED with intermittent episodes of midsternal nonradiating chest pressure that started upon waking up this morning. Patient went to her therapist's office today and was reporting chest pain with accompanying SOB, BP was taken and was noted to be at 160/90, patient immediately came to the ED. Patient also reports bilateral leg swelling, worse on the right than left, that she noted after a fall 2 weeks ago. Otherwise patient denies fever, chills headache, dizziness, abdominal pain, diarrhea, urinary symptoms. Patient reports she has been having a lot of stress at home following the of her father 8 months ago, and then her sister last week due to a heart attack. Because of this, patient has been seeing her gasket maker at [facility] to have herself checked. She reported she recently had a stress test done at [facility] but was not completed because she could not run on the treadmill. ER course was notable for: (1)Trop <0.02 (2) (3) Recent Travel:denies PAST MEDICAL HISTORY: DM HTN HLD COPD/asthma anxiety depression PAST SURGICAL HISTORY: 2 C-sections Social History: Smoking:denies Alcohol:denies Drugs: denies Family History: Sister - of [place] at 40s Allergies Iodinated Contrast- Oral and IV Dye [Iodinated Contrast Media - IV Dye] Allergy (Intermediate, Verified 02/08/19 11:23) Itching azithromycin Adverse Reaction (Intermediate, Verified 02/08/19 11:23) Itching 10/26/17 SUSPECTED ADR TO ZITHROMAX . RX: MILD: ITCHING,NAUSEA. HOME MEDICATIONS: Home Medications Medication Instructions Recorded Fluoxetine HCl [Prozac -] 40 mg PO DAILY 09/15/14 Albuterol Sulfate Inhaler - 1 - 2 inh PO QID 03/15/16 [Ventolin HFA Inhaler -] clonazePAM [Klonopin -] 0.5 mg PO DAILY PRN 05/12/17 Atorvastatin Ca [Lipitor] 20 mg PO HS 09/09/17 Tiotropium [place] [Spiriva] 1 inh PO DAILY 09/09/17 Loratadine [Claritin] 10 mg PO DAILY PRN 09/11/17 Albuterol 2.5/Ipratropium 0.5 1 amp NEB RQID #120 amp 10/31/17 [Duoneb -] Furosemide [Lasix -] 40 mg PO DAILY 04/06/18 Sitagliptin Phos/Metformin HCl 1 each PO BID 04/11/18 [Janumet Xr 50-500 mg Tablet] Semaglutide [Ozempic] 1 mg SQ Q7D 06/04/18 Gabapentin [Neurontin] 600 mg PO TID 08/02/18 Lisinopril [Prinivil] 10 mg PO DAILY 09/28/18 Insulin Glargine,Hum.rec.anlog 45 unit SQ DAILY 11/28/18 [Basaglar Kwikpen U-100] Guaifenesin Dm [Robitussin Dm -] 10 ml PO Q6H PRN #1 bot 12/13/18 Bisacodyl [Dulcolax -] 5 mg PO DAILY 01/28/19 Hydrocodone/Acetaminophen [[place] 1 each PO BID PRN #60 tablet MDD 2 01/28/19 10-325 Tablet] Pramipexole Di-HCl [Mirapex] 0.25 mg PO BID 02/08/19 REVIEW OF SYSTEMS CONSTITUTIONAL: Absent: fever, chills, diaphoresis, generalized weakness, malaise, loss of appetite, weight change HEENT: Absent: rhinorrhea, nasal congestion, throat pain, throat swelling, difficulty swallowing, mouth swelling, ear pain, eye pain, visual changes CARDIOVASCULAR: chestp pain Absent: syncope, palpitations, irregular heart rate, lightheadedness, peripheral edema RESPIRATORY: shortness of breath Absent: cough, dyspnea with exertion, orthopnea, wheezing, stridor, hemoptysis GASTROINTESTINAL: Absent: abdominal pain, abdominal distension, nausea, vomiting, diarrhea, constipation, melena, hematochezia GENITOURINARY: Absent: dysuria, frequency, urgency, hesitancy, hematuria, flank pain, genital pain MUSCULOSKELETAL: Absent: myalgia, arthralgia, joint swelling, back pain, neck pain SKIN: Absent: rash, itching, pallor HEMATOLOGIC/IMMUNOLOGIC: Absent: easy bleeding, easy bruising, lymphadenopathy, frequent infections ENDOCRINE: Absent: unexplained weight gain, unexplained weight loss, heat intolerance, cold intolerance NEUROLOGIC: Absent: headache, focal weakness or paresthesias, dizziness, unsteady gait, seizure, mental status changes, bladder or bowel incontinence PSYCHIATRIC: Absent: anxiety, depression, suicidal or homicidal ideation, hallucinations. PHYSICAL EXAMINATION Vital Signs - 24 hr 02/08/19 02/08/19 02/08/19 11:19 14:09 16:21 Temperature 97.7 F 97.9 F Pulse Rate 92 H Pulse Rate [ 88 Right Radial] Respiratory 16 17 99 H Rate Blood Pressure 148/84 Blood Pressure 108/69 125/64 [Right Arm] O2 Sat by Pulse 96 96 99 Oximetry (%) GENERAL: Awake, alert, and fully oriented, in no acute distress. HEAD: Normal with no signs of trauma. EYES: PERRLA, EOMI, sclera anicteric, conjunctiva clear. EARS, NOSE, THROAT: oropharynx clear without exudates. Moist mucous membranes. NECK: Normal range of motion, supple. LUNGS: Breath sounds equal, clear to auscultation bilaterally. HEART: Regular rate and rhythm, normal S1 and S2 without murmur, rub or gallop. ABDOMEN: Soft, nontender, not distended, normoactive bowel sounds. UPPER EXTREMITIES: 2+ pulses, warm, well-perfused. No peripheral edema. LOWER EXTREMITIES: 2+ pulses, warm, well-perfused.+peripheral edema RLE, + tenderness on anterior alcocer below the knee NEUROLOGICAL: Cranial nerves II-XII intact. Normal speech. Walks with a walker. PSYCHIATRIC: Cooperative. Good eye contact. Appropriate mood and affect. SKIN: Warm, dry, normal turgor, no rashes or lesions noted,. Laboratory Results - last 24 hr 02/08/19 02/08/19 02/08/19 13:04 13:04 13:07 WBC 8.6 RBC 4.47 Hgb 11.9 Hct 36.0 MCV 80.6 MCH 26.6 MCHC 33.0 RDW 14.2 Plt Count 240 MPV 9.0 Absolute Neuts (auto) 4.8 Neutrophils % 56.1 Lymphocytes % 22.6 Monocytes % 5.6 Eosinophils % 15.2 H D Basophils % 0.5 Nucleated RBC % 0 Sodium 141 Potassium 3.9 Chloride 104 Carbon Dioxide 31 Anion Gap 6 L BUN 7.8 Creatinine 0.8 Est GFR (CKD-EPI)AfAm 98.93 Est GFR (CKD-EPI)NonAf 85.36 Random Glucose 182 H Calcium 8.9 Total Bilirubin 0.2 AST 10 L ALT 19 Alkaline Phosphatase 80 Creatine Kinase 74 Troponin I < 0.02 B-Natriuretic Peptide 125.7 H Total Protein 7.4 Albumin 3.7 Urine Color Yellow Urine Appearance Clear Urine pH 7.0 Ur Specific [place] 1.011 Urine Protein Negative Urine Glucose (UA) Trace Urine Ketones Negative Urine Blood 1+ H Urine Nitrite Negative Urine Bilirubin Negative Urine Urobilinogen 0.2 Ur Leukocyte Esterase Negative Urine WBC (Auto) 2 Urine RBC (Auto) 1 Urine Casts (Auto) 0 U Epithel Cells (Auto) 0.9 Urine Bacteria (Auto) 48.3 Opiates Screen Methadone Screen Barbiturate Screen Phencyclidine Screen Ur Amphetamines Screen MDMA (Ecstasy) Screen Benzodiazepines Screen Cocaine Screen U Marijuana (THC) Screen 02/08/19 02/08/19 13:07 18:35 WBC RBC Hgb Hct MCV MCH MCHC RDW Plt Count MPV Absolute Neuts (auto) Neutrophils % Lymphocytes % Monocytes % Eosinophils % Basophils % Nucleated RBC % Sodium Potassium Chloride Carbon Dioxide Anion Gap BUN Creatinine Est GFR (CKD-EPI)AfAm Est GFR (CKD-EPI)NonAf Random Glucose Calcium Total Bilirubin AST ALT Alkaline Phosphatase Creatine Kinase Troponin I < 0.02 B-Natriuretic Peptide Total Protein Albumin Urine Color Urine Appearance Urine pH Ur Specific [place] Urine Protein Urine Glucose (UA) Urine Ketones Urine Blood Urine Nitrite Urine Bilirubin Urine Urobilinogen Ur Leukocyte Esterase Urine WBC (Auto) Urine RBC (Auto) Urine Casts (Auto) U Epithel Cells (Auto) Urine Bacteria (Auto) Opiates Screen Positive A* Methadone Screen Negative Barbiturate Screen Negative Phencyclidine Screen Negative Ur Amphetamines Screen Negative MDMA (Ecstasy) Screen Negative Benzodiazepines Screen Negative Cocaine Screen Negative U Marijuana (THC) Screen Negative ASSESSMENT/PLAN: Patient is a 53 year old female with past medical history of DM, HTN, HLD, COPD/ asthma, anxiety, depression, presented to the ED with intermittent episodes of midsternal nonradiating chest pressure that started upon waking up this morning. #Chest pain -likely 2/2 stress vs MSK, rule out ACS -Trop < 0.02, will trend -EKG: NSR with no ST-T wave ischemic changes -Echo -Tele monitoring #RLE edema -will order Duplex BLE to rule out DVT #DM -insulin sliding scale implemented -Continue home Levemir 45u daily in AM -BGM ACHS #HTN -Continue Lisinopril -Continue Lasix #COPD/asthma -Continue Spiriva -Duonebs RQID #Depression/Anxiety -Continue home med Fluoxetine #FEN -Not on any standing fluids -Electrolytes wnl, routine bmp monitoring -Sodium/Diabetic diet #Prophylaxis -Lovenox 40mg sq daily #Disposition -full code -tele obs Visit type - Emergency Visit Emergency Visit: Yes ED Registration Date: 02/08/19 Care time: The patient presented to the Emergency Department on the above date and was hospitalized for further evaluation of their emergent condition. - New Patient This patient is new to me today: Yes Date on this admission: 02/08/19 - Critical Care Critical Care patient: No ATTENDING PHYSICIAN STATEMENT I saw and evaluated the patient. I reviewed the resident's note and discussed the case with the resident. I agree with the resident's findings and plan as documented. SUBJECTIVE: OBJECTIVE: ASSESSMENT AND PLAN:
[2019-02-08] MEDS ORDERED: ALBUTEROL SO4 2.5/IPRATROPIUM 0.5 INH SOL 3 ML VIAL.NEB. NEB ONE (20:24)
[2019-02-08] MEDS: ALBUTEROL SO4 2.5/IPRATROPIUM 0.5 INH SOL 3 ML VIAL.NEB. NEB SCH (20:29)
[2019-02-08] MEDS ORDERED: ATORVASTATIN CA 20 MG TABLET (FP) PO SCH (22:00)
[2019-02-08] MEDS ORDERED: ATORVASTATIN CA 20 MG TABLET (FP) ONE (22:21)
[2019-02-08] MEDS ORDERED: GABAPENTIN 100 MG CAPSULE (FP) ONE (22:22)
[2019-02-08] MEDS: GABAPENTIN 300 MG CAPSULE (FP) PO SCH (22:27)
[2019-02-08] MEDS ORDERED: INSULIN (NOVOLOG) ASPART 100 UNITS/ML 10ML VIAL ONE (22:29)
[2019-02-08] MEDS: INSULIN SLIDING SCALE (NOVOLOG) 1 VIAL SQ SCH (22:43)
[2019-02-08] MEDS: PRAMIPEXOLE DIHYDROCHLORIDE 0.25 MG TABLET PO SCH (22:44)
[2019-02-09 06:32] LABS: BASO % 0.7 % (0-2.0); EOS % 16.3 % (0-4.5); HEMATOCRIT 33.3 % (32.4-45.2); HEMOGLOBIN 10.9 GM/dL (10.7-15.3); LYMPH % 26.9 % (8-40); MCH 26.8 pg (25.7-33.7); MCHC 32.8 g/dl (32.0-36.0); MEAN CELL VOLUME 81.5 fl (80-96); MEAN PLT VOLUME 9.3 fl (7.5-11.1); MONO % 6.5 % (3.8-10.2); NEUT % 49.6 % (42.8-82.8); PLATELET COUNT 206 K/MM3 (134-434); RBC 4.08 M/mm3 (3.60-5.2); RDW 13.9 % (11.6-15.6); WHITE BLOOD COUNT 7.1 K/mm3 (4.0-10.0)
[2019-02-09] MEDS: GABAPENTIN 300 MG CAPSULE (FP) PO SCH ×2 (06:33→14:20)
[2019-02-09] MEDS: INSULIN SLIDING SCALE (NOVOLOG) 1 VIAL SQ SCH ×2 (06:33→12:05)
[2019-02-09 06:56] LABS: ALBUMIN 3.2 g/dl (3.4-5.0); BILIRUBIN,TOTAL 0.4 mg/dL (0.2-1); BLOOD UREA NITROGEN 9.8 mg/dL (7-18); CALCIUM 8.4 mg/dL (8.5-10.1); MAGNESIUM 1.9 mg/dL (1.8-2.4); PHOSPHOROUS 4.4 mg/dL (2.5-4.9); TOT PROT 6.5 g/dl (6.4-8.2)
--- NOTE | 2019-02-09 09:31 | EKG ---
Test Reason : Blood Pressure : / mmHG Vent. Rate : 087 BPM Atrial Rate : 087 BPM P-R Int : 164 ms QRS Dur : 088 ms QT Int : 388 ms P-R-T Axes : 054 -40 041 degrees QTc Int : 466 ms NORMAL SINUS RHYTHM LEFT AXIS DEVIATION MODERATE VOLTAGE CRITERIA FOR LVH, MAY BE NORMAL VARIANT ABNORMAL ECG WHEN COMPARED WITH ECG OF 17-JAN-2019 18:20, NO SIGNIFICANT CHANGE WAS FOUND Confirmed by ARNALDO MENDOZA, ANA LUISA ([id number]) on 02/09/2019 9:30:38 AM Referred By: Confirmed By:ANA LUISA MCINTOSH MD
[2019-02-09] MEDS ORDERED: FLUoxetine HCL 20 MG CAPSULE (FP) PO SCH (10:00)
[2019-02-09] MEDS ORDERED: TIOTROPIUM BROMIDE 2.5 MCG (SPIRIVA) RESPIMAT INHALER IH SCH (10:00)
[2019-02-09] MEDS ORDERED: BISACODYL 5 MG TABLET.DR (FP) PO SCH (10:00)
[2019-02-09] MEDS ORDERED: FUROSEMIDE 40 MG TABLET (FP) PO SCH (10:00)
[2019-02-09] MEDS ORDERED: INSULIN (LEVEMIR) 100 UNITS/ML UNITS SQ SCH (10:00)
[2019-02-09] MEDS ORDERED: ENOXAPARIN NA (PORCINE) 40 MG/0.4 ML DISP.SYRIN SQ SCH (10:00)
[2019-02-09] MEDS ORDERED: LISINOPRIL 10 MG TABLET (FP) PO SCH (10:00)
[2019-02-09] MEDS: PRAMIPEXOLE DIHYDROCHLORIDE 0.25 MG TABLET PO SCH (10:36)
[2019-02-09] MEDS ORDERED: ALBUTEROL SO4 2.5/IPRATROPIUM 0.5 INH SOL 3 ML VIAL.NEB. NEB ONE (10:52)
[2019-02-09] MEDS: ALBUTEROL SO4 2.5/IPRATROPIUM 0.5 INH SOL 3 ML VIAL.NEB. NEB SCH ×2 (10:52→15:04)
[2019-02-09] MEDS ORDERED: INSULIN (LEVEMIR) 100 UNITS/ML UNITS SQ ONE (10:53)
[2019-02-09] MEDS ORDERED: clonazePAM 0.5 MG TABLET PO ONE (13:46)
--- NOTE | 2019-02-09 13:57 | DS ---
Physical Exam: SUBJECTIVE: Patient seen and examined. developed chest pain this morning when she started reminiscing of her sister. has continued for the past few hours but has improved. denies SOB, fever, chills, numbness tingling in her arm or face OBJECTIVE: Vital Signs Period Temp Pulse Resp BP Sys/Giron Pulse Ox Last 24 Hr 97.9 F-98.8 F 60-88 17-99 108-128/53-69 96-100 PHYSICAL EXAM GENERAL: The patient is awake, alert, and fully oriented, in no acute distress. tearful during exam HEAD: Normal with no signs of trauma. EYES: PERRL, extraocular movements intact, sclera anicteric, conjunctiva clear. ENT: Ears normal, nares patent, oropharynx clear without exudates, moist mucous membranes. NECK: Trachea midline, full range of motion, supple. LUNGS: Breath sounds equal, clear to auscultation bilaterally, no wheezes, no crackles, no accessory muscle use. HEART: Regular rate and rhythm, S1, S2 without murmur, rub or gallop. no chest wall tenderness ABDOMEN: Soft, nontender, nondistended, normoactive bowel sounds, no guarding, no rebound, no hepatosplenomegaly, no masses. morbid obese EXTREMITIES: 2+ pulses, warm, well-perfused. has ecchymosis on RLE medial aspect with minimal swelling over it. slightly tender NEUROLOGICAL: Cranial nerves II through XII grossly intact. Normal speech, gait not observed. PSYCH: Normal mood, normal affect. SKIN: Warm, dry, normal turgor, no rashes or lesions noted. LABS Laboratory Results - last 24 hr 02/08/19 02/08/19 02/09/19 13:07 18:35 02:15 WBC RBC Hgb Hct MCV MCH MCHC RDW Plt Count MPV Absolute Neuts (auto) Neutrophils % Lymphocytes % Monocytes % Eosinophils % Basophils % Nucleated RBC % Sodium Potassium Chloride Carbon Dioxide Anion Gap BUN Creatinine Est GFR (CKD-EPI)AfAm Est GFR (CKD-EPI)NonAf Random Glucose Calcium Phosphorus Magnesium Total Bilirubin AST ALT Alkaline Phosphatase Troponin I < 0.02 0.04 Total Protein Albumin TSH Opiates Screen Positive A* Methadone Screen Negative Barbiturate Screen Negative Phencyclidine Screen Negative Ur Amphetamines Screen Negative MDMA (Ecstasy) Screen Negative Benzodiazepines Screen Negative Cocaine Screen Negative U Marijuana (THC) Screen Negative 02/09/19 02/09/19 02/09/19 05:20 06:40 07:00 WBC 7.1 RBC 4.08 Hgb 10.9 Hct 33.3 MCV 81.5 MCH 26.8 MCHC 32.8 RDW 13.9 Plt Count 206 MPV 9.3 Absolute Neuts (auto) 3.5 Neutrophils % 49.6 Lymphocytes % 26.9 Monocytes % 6.5 Eosinophils % 16.3 H Basophils % 0.7 Nucleated RBC % 0 Sodium 141 Potassium 4.0 Chloride 107 Carbon Dioxide 27 Anion Gap 7 L BUN 9.8 Creatinine 1.0 Est GFR (CKD-EPI)AfAm 75.54 Est GFR (CKD-EPI)NonAf 65.18 Random Glucose 192 H Calcium 8.4 L Phosphorus 4.4 Magnesium 1.9 Total Bilirubin 0.4 AST 9 L ALT 16 Alkaline Phosphatase 69 Troponin I < 0.02 Total Protein 6.5 Albumin 3.2 L TSH 3.70 Opiates Screen Methadone Screen Barbiturate Screen Phencyclidine Screen Ur Amphetamines Screen MDMA (Ecstasy) Screen Benzodiazepines Screen Cocaine Screen U Marijuana (THC) Screen HOSPITAL COURSE: Date of Admission:02/08/19 Date of Discharge: 02/09/19 admitting diagnosis atypical CP, anxiety Pre hospital course 53 year old female with past medical history of DM, HTN, HLD, COPD/asthma, anxiety, depression, presented to the ED with intermittent episodes of midsternal nonradiating chest pressure that started upon waking up this morning. Patient went to her therapist's office today and was reporting chest pain with accompanying SOB, BP was taken and was noted to be at 160/90, patient immediately came to the ED. Patient also reports bilateral leg swelling, worse on the right than left, that she noted after a fall 2 weeks ago. Otherwise patient denies fever, chills headache, dizziness, abdominal pain, diarrhea, urinary symptoms. Patient reports she has been having a lot of stress at home following the of her father 8 months ago, and then her sister last week due to a heart attack. Because of this, patient has been seeing her composite mechanic at [facility] to have herself checked. She reported she recently had a stress test done at [facility] but was not completed because she could not run on the treadmill. SUbsequent hospital course tele observation. continued to have CP which was exacerbated when thinking about the of her sister. states she had stress test earlier this week which she was unable to complete. this test was scheduled prior to her sisters and was being done for routine reason not because of CP. cardiac marker neg x4. has appt to see psychiatrist on monday and her composite mechanic early next week. can d/c home and encouraged to f/u with both. should have NMST done to evaluate for coronary disease Minutes to complete discharge: 40 Discharge Summary Reason For Visit: CHEST PAIN Current Active Problems Chest pain (Acute) Condition: Improved - Instructions Diet, Activity, Other Instructions: You were observed in the hospital becuase of your chest pain. This is likely stress related. Recommend that you follow up with your therapist on Monday like scheduled and discuss with them what you are dealing with. FOllow up with your composite mechanic on Monday as you should have your stress test repeated as you were unable to complete it. Would recommend doing a stress test if your unable to run on a treadmill the ultrasound of your leg showed there is no clot Continue your home medications return to the hospital if your chest pain worsens or develop shortness of breath Disposition: HOME - Home Medications Comprehensive Discharge Medication List: Ambulatory Orders Fluoxetine HCl [Prozac -] 40 mg PO DAILY 09/15/14 Albuterol Sulfate Inhaler - [Ventolin HFA Inhaler -] 1 - 2 inh PO QID 03/15/16 clonazePAM [Klonopin -] 0.5 mg PO DAILY PRN 05/12/17 Atorvastatin Ca [Lipitor] 20 mg PO HS 09/09/17 Tiotropium [place] [Spiriva] 1 inh PO DAILY 09/09/17 Loratadine [Claritin] 10 mg PO DAILY PRN 09/11/17 Albuterol 2.5/Ipratropium 0.5 [Duoneb -] 1 amp NEB RQID #120 amp 10/31/17 Furosemide [Lasix -] 40 mg PO DAILY 04/06/18 Sitagliptin Phos/Metformin HCl [Janumet Xr 50-500 mg Tablet] 1 each PO BID 04/11 Semaglutide [Ozempic] 1 mg SQ Q7D 06/04/18 Gabapentin [Neurontin] 600 mg PO TID 08/02/18 Lisinopril [Prinivil] 10 mg PO DAILY 09/28/18 Insulin Glargine,Hum.rec.anlog [Basaglar Kwikpen U-100] 45 unit SQ DAILY Guaifenesin Dm [Robitussin Dm -] 10 ml PO Q6H PRN #1 bot 12/13/18 Bisacodyl [Bisacodyl -] 5 mg PO DAILY 01/28/19 Hydrocodone/Acetaminophen [[place] 10-325 Tablet] 1 each PO BID PRN #60 tablet MDD 2 01/28/19 Pramipexole Di-HCl [Mirapex] 0.25 mg PO BID 02/08/19 This patient is new to me today: No Emergency Visit: Yes ED Registration Date: 02/08/19 Care time: The patient presented to the Emergency Department on the above date and was hospitalized for further evaluation of their emergent condition. Critical Care patient: No - Discharge Referral Referred to [facility] Med P.C.: No
[2019-02-09 15:10] VITALS: BP 124/69; PULSE 80; TEMP 97.4
== END 2019-02-09 15:36 | disposition home or self-care (01) ==
LOC: JER 11:10 → JERBED 16:51
PROVIDERS: ADMIT Internal Medicine; ATTEND Internal Medicine
PROC: 3E013VG Introduction of Insulin into Subcutaneous Tissue, Percutaneous Approach (ICD-10-PCS; principal; 2019-02-08)
PROC: 3E0F7GC Introduction of Other Therapeutic Substance into Respiratory Tract, Via Natural or Artificial Opening (ICD-10-PCS; 2019-02-08)
DX: R07.89 Other chest pain (principal); I10 Essential (primary) hypertension; R60.0 Localized edema; E78.5 Hyperlipidemia, unspecified; E11.9 Type 2 diabetes mellitus without complications; J44.9 Chronic obstructive pulmonary disease, unspecified; F32.9 Major depressive disorder, single episode, unspecified; F41.9 Anxiety disorder, unspecified; E66.01 Morbid (severe) obesity due to excess calories; Z68.42 Body mass index [BMI] 45.0-49.9, adult; I69.354 Hemiplegia and hemiparesis following cerebral infarction affecting left non-dominant side; Z79.4 Long term (current) use of insulin
CPT/HCPCS: 36415; 71046-TC-FY; 80053; 80307; 81003; 82550; 82962; 83735; 83880; 84100; 84443; 84484; 85025; 93005; 93010; 93970-TC; 99285-25; G0378

== ENCOUNTER 2019-02-21 11:19 | Emergency (ER) | payer OTHER ==
[2019-02-21 11:37] VITALS: TEMP 97.7; BMI 48.4
[2019-02-21] MEDS ORDERED: ONDANSETRON 4 MG/2 ML VIAL IVPUSH ONE (11:55)
[2019-02-21] MEDS ORDERED: SODIUM CHLORIDE 0.9% 1000 ML INFUS.BAG IV ONE (11:55)
[2019-02-21] MEDS ORDERED: ACETAMINOPHEN 1000 MG/100 ML VIAL (NON FORMULARY) IVPB ONE (11:55)
[2019-02-21] MEDS ORDERED: ACETAMINOPHEN INJECTION 100 ML IVPB ONE (12:11)
[2019-02-21] MEDS ORDERED: ONDANSETRON 4 MG/2 ML VIAL ONE (12:11)
[2019-02-21 12:42] LABS: BASO % 0.7 % (0-2.0); EOS % 16.5 % (0-4.5); HEMATOCRIT 32.8 % (32.4-45.2); LYMPH % 18.2 % (8-40); MCH 26.8 pg (25.7-33.7); MCHC 33.6 g/dl (32.0-36.0); MEAN CELL VOLUME 79.6 fl (80-96); MEAN PLT VOLUME 9.7 fl (7.5-11.1); MONO % 5.5 % (3.8-10.2); NEUT % 59.1 % (42.8-82.8); PLATELET COUNT 219 K/MM3 (134-434); RBC 4.13 M/mm3 (3.60-5.2); RDW 13.7 % (11.6-15.6); WHITE BLOOD COUNT 9.6 K/mm3 (4.0-10.0)
--- NOTE | 2019-02-21 12:43 | PDOC ---
Documentation entered by Shruthi Prater SCRIBE, acting as scribe for Adan Patel MD. Adan Patel MD: This documentation has been prepared by the Moi marte Brenda, SCRIBE, under my direction and personally reviewed by me in its entirety. I confirm that the documentation accurately reflects all work, treatment, procedures, and medical decision making performed by me. 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 As per patient, she was at her endocrinologists office for a regular appointment, at which time she began to feel very nauseous and had 1 episode of vomiting. The patient reports that she thought her symptoms could have been due to increased blood sugar levels, so she took medication, to no avail. The patient also endorses abdominal pain with a feeling of a bloated abdomen and low PO intake. The patient also notes that prior to current symptoms she also felt some chest pain. The patient denies chest pain, shortness of breath, headache and dizziness. Denies fever, chills, diarrhea and constipation. Denies dysuria, frequency, urgency and hematuria. Allergies: NKA Past surgical history: Abd: Umbilical Hernia Social history: History of tobacco use. Denies alcohol use or illicit drug use. PCP: Damaris Solis Past History - Past Medical History Allergies/Adverse Reactions: Allergies Allergy/AdvReac Type Severity Reaction Status Date / Time Iodinated Contrast- Oral and Allergy Intermediate Itching Verified 02/21/19 11: 35 IV Dye [Iodinated Contrast Media - IV Dye] azithromycin AdvReac Intermediate Itching Verified 02/21/19 11:35 Home Medications: Ambulatory Orders Fluoxetine HCl [Prozac -] 40 mg PO DAILY 09/15/14 Albuterol Sulfate Inhaler - [Ventolin HFA Inhaler -] 1 - 2 inh PO QID 03/15/16 clonazePAM [Klonopin -] 0.5 mg PO DAILY PRN 05/12/17 Atorvastatin Ca [Lipitor] 20 mg PO HS 09/09/17 Tiotropium [place] [Spiriva] 1 inh PO DAILY 09/09/17 Loratadine [Claritin] 10 mg PO DAILY 09/11/17 Albuterol 2.5/Ipratropium 0.5 [Duoneb -] 1 amp NEB RQID #120 amp 10/31/17 Furosemide [Lasix -] 20 mg PO DAILY 04/06/18 Semaglutide [Ozempic] 1 mg SQ Q7D 06/04/18 Gabapentin [Neurontin] 600 mg PO TID 08/02/18 Lisinopril [Prinivil] 10 mg PO DAILY 09/28/18 Ferrous Sulfate [Iron] 325 mg PO DAILY 02/21/19 Omeprazole 40 mg PO DAILY 02/21/19 Ondansetron [Zofran Odt -] 4 mg SL BID #14 od.tablet 02/21/19 Zolpidem Tartrate [Ambien] 10 mg PO HS PRN 02/21/19 Asthma: Yes Cardiac Disorders: No 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) COPD: Yes (on inhalers) CHF: No Dementia: No Diabetes: Yes GI Disorders: No Disorders: No HTN: Yes Hypercholesterolemia: Yes Liver Disease: Yes (hep C - treated) Psychiatric Problems: Yes Seizures: Yes Thyroid Disease: Yes (hypothyroid) - Surgical History Abdominal Surgery: Yes (UMBILICAL HERNIA) - Immunization History Immunization Up to Date: Yes - Suicide/Smoking/Psychosocial Hx Smoking History: Former smoker Have you smoked in the past 12 months: No If you are a former smoker, when did you quit?: 5 YEARS AGO Information on smoking cessation initiated: No 'Breaking Loose' booklet given: 09/16/14 Hx Alcohol Use: No Drug/Substance Use Hx: No Substance Use Type: None Hx Substance Use Treatment: No Review of Systems - Review of Systems Able to Perform ROS?: Yes Comments:: 02/21/19 12:34 A complete review of 10 out of 10 review of systems is taken and is negative apart from what is previously mentioned below and in the HPI. *Physical Exam - Vital Signs Last Vital Signs Temp Pulse Resp BP Pulse Ox 97.7 F 78 18 130/72 100 02/21/19 11:35 02/21/19 11:35 02/21/19 11:35 02/21/19 11:35 02/21/19 11:35 - Physical Exam Comments: 02/21/19 12:34 Vitals: Triage Vital signs reviewed General Appearance: no acute distress, well nourished well developed, Head: Atraumatic, normocephalic Eyes: Pupils equal reactive round, extraocular movement intact Neck: Supple;No Nuchal rigidity Chest Wall: Nontender Cardiac: Regular rate and rhythm, no murmurs, no rubs, no gallops, Lungs: Clear to auscultation bilateral, good air movement bilaterally, Abdomen: (+) Epigastric discomfort. Soft, normal bowel sounds. Extremities: Full range of motion to all extremities, no cyanosis, clubbing, or edema Skin: Warm and dry, no rashes or lesions, no petechiae Neuro: AOX3; Cranial Nerves 2-12 grossly intact Psych: normal mood, normal affect Heart Score/ECG Review - ECG Impressions Comment:: 02/21/19 13:02 EKG performed at 1210 demonstrates normal sinus rhythm no ST elevations, no T- wave inversions, left axis deviation Interpreted by me. ED Treatment Course - LABORATORY CBC & Chemistry Diagram: 02/21/19 12:10 02/21/19 12:07 Medical Decision Making - Medical Decision Making 02/21/19 13:09 53 years old hypertension and some dependent diabetes COPD hepatitis previous hernia repair presents to the ED with epigastric abdominal discomfort nausea vomiting decreased flatus We'll check labs antiemetics pain medication IV fluids patient is ALLERGIC to IV contrast we'll perform CT scan with oral contrast only observe and reassess. 02/21/19 15:58 Reevaluation 4 PM Patient feels better now tolerating fluids by mouth. CAT scan with no acute findings. No fever no white count normal laboratory analysis no acute findings on CAT scan 1 brief episode of emesis followed by a burning discomfort sensation in her epigastrium. Her EKG demonstrated normal sinus rhythm with no ST elevations and no T-wave inversions Interpreted by me. Her cardiac enzyme was normal. At this time given nausea and vomiting likely viral illness we will recommend liquid diet for one day Zofran for nausea, she will return to the emergency department for any severe worsening symptoms or for any concerns otherwise she' ll follow-up with her doctor in 2-3 days. Findings, the need for follow-up and strict return instructions discussed with patient. *DC/Admit/Observation/Transfer Diagnosis at time of Disposition: Nausea & vomiting Qualifiers: Vomiting type: unspecified Vomiting Intractability: non-intractable Qualified Code(s): R11.2 - Nausea with vomiting, unspecified - Discharge Dispostion Disposition: HOME Decision to Admit order: No - Referrals - Patient Instructions Printed Discharge Instructions: DI for Vomiting -- Adult Additional Instructions: Zofran as prescribed for nausea. For the next 24 hours fluids only water soup Gatorade. If no vomiting for 24 hours okay to proceed to a bland diet. Return to the emergency department immediately for any severe worsening abdominal pain any fever persistent vomiting or for any concerns otherwise follow-up with her primary care provider within 2-3 days. - Post Discharge Activity
[2019-02-21 12:58] LABS: ALBUMIN 3.2 g/dl (3.4-5.0); ALK PHOS 66 U/L (45-117); ANION GAP 5 MMOL/L (8-16); BILIRUBIN,TOTAL 0.2 mg/dL (0.2-1); BLOOD UREA NITROGEN 11.5 mg/dL (7-18); CALCIUM 8.6 mg/dL (8.5-10.1); CHLORIDE 104 mmol/L (98-107); CO2 28 mmol/L (21-32); CREATININE 0.8 mg/dL (0.55-1.3); GLUCOSE,RANDOM 199 mg/dL (74-106); LIPASE 138 U/L (73-393); POTASSIUM 4.2 mmol/L (3.5-5.1); SGOT/AST 16 U/L (15-37); SGPT/ALT 17 U/L (13-61); SODIUM 137 mmol/L (136-145); TOT PROT 6.6 g/dl (6.4-8.2)
--- NOTE | 2019-02-21 14:35 | EKG ---
Test Reason : Blood Pressure : / mmHG Vent. Rate : 095 BPM Atrial Rate : 095 BPM P-R Int : 164 ms QRS Dur : 092 ms QT Int : 382 ms P-R-T Axes : 050 -31 029 degrees QTc Int : 480 ms NORMAL SINUS RHYTHM LEFT AXIS DEVIATION MINIMAL VOLTAGE CRITERIA FOR LVH, MAY BE NORMAL VARIANT PROLONGED QT ABNORMAL ECG WHEN COMPARED WITH ECG OF 08-FEB-2019 12:49, NO SIGNIFICANT CHANGE WAS FOUND Confirmed by LUCIE MENDOZA, LESLI ([id number]) on 02/21/2019 2:35:28 PM Referred By: Confirmed By:LESLI FAULKNER MD
[2019-02-21 16:19] VITALS: BP 106/67; PULSE 97
== END 2019-02-21 16:19 | disposition home or self-care (01) ==
LOC: JER 11:19
PROC: 3E033NZ Introduction of Analgesics, Hypnotics, Sedatives into Peripheral Vein, Percutaneous Approach (ICD-10-PCS; principal; 2019-02-21)
PROC: 3E0337Z Introduction of Electrolytic and Water Balance Substance into Peripheral Vein, Percutaneous Approach (ICD-10-PCS; 2019-02-21)
PROC: 3E033GC Introduction of Other Therapeutic Substance into Peripheral Vein, Percutaneous Approach (ICD-10-PCS; 2019-02-21)
DX: R11.2 Nausea with vomiting, unspecified (principal); I10 Essential (primary) hypertension; E11.9 Type 2 diabetes mellitus without complications; J44.9 Chronic obstructive pulmonary disease, unspecified; B18.2 Chronic viral hepatitis C; I69.354 Hemiplegia and hemiparesis following cerebral infarction affecting left non-dominant side; G40.909 Epilepsy, unspecified, not intractable, without status epilepticus; F41.9 Anxiety disorder, unspecified; F31.9 Bipolar disorder, unspecified; E03.9 Hypothyroidism, unspecified; R26.2 Difficulty in walking, not elsewhere classified; Z99.89 Dependence on other enabling machines and devices; Z88.1 Allergy status to other antibiotic agents; Z87.891 Personal history of nicotine dependence
CPT/HCPCS: 36415; 74176-TC; 80053; 82009; 82962; 83690; 84484; 85025; 93005; 93010; 99284-25; J0131; J7030; Q9967

== ENCOUNTER 2019-04-07 17:33 | Emergency (ER) | payer OTHER ==
[2019-04-07 17:45] VITALS: BP 147/83; PULSE 90; BMI 48.4
--- NOTE | 2019-04-07 18:14 | PDOC ---
History of Present Illness - General Chief Complaint: Vomiting/Diarrhea Stated Complaint: DIARRHEA/VOMITING Time Seen by Provider: 04/07/19 18:10 - History of Present Illness Initial Comments: 04/07/19 18:16 HPI: 53 year old female, with a significant PMH of HTN, DM, COPD, Hepatitis C (s/p treatment), prior CVA (2015, residual L sided weakness and walks with a walker) , anxiety, seizure disorder, bipolar disorder, and depression who presents to the emergency department with1 day of nausea, emesis, and diarrhea. She states her symptoms all started yesterday with chills. Today she woke up and wasnt able to tolerate breakfast and vomited. She continued to vomit more than 4 times today and feels constantly nauseous. She also complains of right sided headache that didnt improve with tylenol. In the afternoon, she started developing epigastric/midsternal pain and cough after vomiting that lasted a few minutes and self resolved without any intervention. She feels like her nausea has made her increased SOB. She denies fever, hematemesis, dysuria, BPR, recent travel Allergies: NKA Past surgical history: Abd: Umbilical Hernia Social history: History of tobacco use. Denies alcohol use or illicit drug use. PCP: Damaris Solis ROS: GENERAL/CONSTITUTIONAL: No fever No weakness. HEAD, EYES, EARS, NOSE AND THROAT: No change in vision. No ear pain or discharge. No sore throat. CARDIOVASCULAR: + shortness of breath RESPIRATORY: No wheezing, or hemoptysis. GASTROINTESTINAL: No nausea, vomiting, diarrhea or constipation. GENITOURINARY: No dysuria, frequency, or change in urination. MUSCULOSKELETAL: No joint or muscle swelling or pain. No neck or back pain. SKIN: No rash NEUROLOGIC: No headache, vertigo, loss of consciousness, or change in strength/ sensation. ENDOCRINE: No increased thirst. No abnormal weight change HEMATOLOGIC/LYMPHATIC: No anemia, easy bleeding, or history of blood clots. ALLERGIC/IMMUNOLOGIC: No hives or skin allergy. PE: GENERAL: Awake, alert, and fully oriented, mild acute distress HEAD: No signs of trauma, normocephalic, atraumatic EYES: EOMI, sclera anicteric, conjunctiva clear ENT: Auricles normal inspection, hearing grossly normal, nares patent, oropharynx clear without exudates. Moist mucosa NECK: Normal ROM, no lymphadenopathy LUNGS: No increased work of breathing, symmetrical chest rise, clear to auscultation bilaterally, no wheezes, crackles or rhonchi HEART: Regular rate and rhythm, normal S1 and S2, no murmurs, peripheral pulses 2+ and equal bilaterally. ABDOMEN: Soft, nontender, nondistended, normoactive bowel sounds. No guarding, no rebound. No masses EXTREMITIES: Normal inspection, Normal range of motion, no edema. No clubbing or cyanosis. NEUROLOGICAL: Cranial nerves II through XII grossly intact. Normal speech, normal gait, no focal sensorimotor deficits SKIN: Warm, Dry, normal turgor, no rashes or lesions noted Past History - Past Medical History Allergies/Adverse Reactions: Allergies Allergy/AdvReac Type Severity Reaction Status Date / Time Iodinated Contrast Media Allergy Intermediate Itching Verified 04/07/19 17:38 [Iodinated Contrast Media - IV Dye] azithromycin AdvReac Intermediate Itching Verified 04/07/19 17:38 Home Medications: Ambulatory Orders Fluoxetine HCl [Prozac -] 40 mg PO DAILY 09/15/14 Albuterol Sulfate Inhaler - [Ventolin HFA Inhaler -] 1 - 2 inh PO QID 03/15/16 clonazePAM [Klonopin -] 0.5 mg PO DAILY PRN 05/12/17 Atorvastatin Ca [Lipitor] 20 mg PO HS 09/09/17 Tiotropium [place] [Spiriva] 1 inh PO DAILY 09/09/17 Loratadine [Claritin] 10 mg PO DAILY 09/11/17 Albuterol 2.5/Ipratropium 0.5 [Duoneb -] 1 amp NEB RQID #120 amp 10/31/17 Furosemide [Lasix -] 20 mg PO DAILY 04/06/18 Semaglutide [Ozempic] 1 mg SQ Q7D 06/04/18 Gabapentin [Neurontin] 600 mg PO TID 08/02/18 Lisinopril [Prinivil] 10 mg PO DAILY 09/28/18 Ferrous Sulfate [Iron] 325 mg PO DAILY 02/21/19 Omeprazole 40 mg PO DAILY 02/21/19 Ondansetron [Zofran Odt -] 4 mg SL BID #14 od.tablet 02/21/19 Zolpidem Tartrate [Ambien] 10 mg PO HS PRN 02/21/19 Hydrocodone/Acetaminophen [[place] 10-325 Tablet] 1 each PO TID PRN #70 tablet MDD 3 03/27/19 Metoprolol Tartrate [Lopressor -] 25 mg PO DAILY 03/27/19 Ondansetron [Zofran *Odt*] 4 mg SL TID PRN #6 od.tablet 04/07/19 Asthma: Yes Cardiac Disorders: No 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) COPD: Yes (on inhalers) CHF: No Dementia: No Diabetes: Yes GI Disorders: No Disorders: No HTN: Yes Hypercholesterolemia: Yes Liver Disease: Yes (hep C - treated) Psychiatric Problems: Yes Seizures: Yes Thyroid Disease: Yes (hypothyroid) - Surgical History Abdominal Surgery: Yes (UMBILICAL HERNIA) - Immunization History Immunization Up to Date: Yes - Suicide/Smoking/Psychosocial Hx Smoking History: Never smoked Have you smoked in the past 12 months: No If you are a former smoker, when did you quit?: 5 YEARS AGO 'Breaking Loose' booklet given: 09/16/14 Hx Alcohol Use: No Drug/Substance Use Hx: No Substance Use Type: None Hx Substance Use Treatment: No *Physical Exam - Vital Signs Last Vital Signs Temp Pulse Resp BP Pulse Ox 98.5 F 90 18 147/83 99 04/07/19 17:35 04/07/19 17:35 04/07/19 17:35 04/07/19 17:35 04/07/19 17:35 ED Treatment Course - LABORATORY CBC & Chemistry Diagram: 04/07/19 19:00 04/07/19 19:00 Medical Decision Making - Medical Decision Making 04/07/19 21:15 53 year old female, with a significant PMH of HTN, DM, COPD, Hepatitis C (s/p treatment), prior CVA (2014, residual L sided weakness and walks with a walker) , anxiety, seizure disorder, bipolar disorder, and depression who presents to the emergency department with1 day of nausea, emesis, and diarrhea. Vitals wnl. PE unremarkable. -cbc, cmp, lactate, UA -ivf, pepcid, maalox, zofran 04/07/19 21:15 labs unremarkable patient symptoms signficantly improved Discussed with patient results and she understands all return pcxn and instructions. She is comfortable with DC and followup with her physician *DC/Admit/Observation/Transfer Diagnosis at time of Disposition: Nausea & vomiting Qualifiers: Vomiting type: unspecified Vomiting Intractability: non-intractable Qualified Code(s): R11.2 - Nausea with vomiting, unspecified Diarrhea Qualifiers: Diarrhea type: unspecified type Qualified Code(s): R19.7 - Diarrhea, unspecified - Discharge Dispostion Disposition: HOME Condition at time of disposition: Improved Decision to Admit order: No - Prescriptions Prescriptions: Ondansetron [Zofran *Odt*] 4 mg SL TID PRN #6 od.tablet PRN Reason: Nausea And/Or Vomiting - Referrals Referrals: Damaris Solis MD [Primary Care Provider] - - Patient Instructions Printed Discharge Instructions: DI for Viral Gastroenteritis -- Adult Additional Instructions: Additional Instructions: Please return to the emergency department with any new or worsening symptoms or concerns including worsening abdominal pain, severe chest pain, fainting, bloody diarrhea. Please follow up with your primary care physician within 72 hours. Please take anti-nausea medication as prescribed. Continue to stay hydrated. Eat BRAT diet (banana, rice, apple sauce, toast) Print Language: LATVIAN - Post Discharge Activity
[2019-04-07] MEDS ORDERED: SODIUM CHLORIDE 1,000 ML IV STA (19:06)
[2019-04-07] MEDS ORDERED: MAG HYDROX/AL HYDROX/SIMETH 30 ML UNIT-DOSE CUP PO ONE (19:06)
[2019-04-07] MEDS ORDERED: FAMOTIDINE 20 MG/50 ML IVPB 20 MG/50 ML MG IVPB ONE ×2 (19:06→19:20)
[2019-04-07] MEDS ORDERED: ONDANSETRON 4 MG/2 ML VIAL IVPUSH ONE (19:06)
[2019-04-07] MEDS ORDERED: ONDANSETRON 4 MG/2 ML VIAL ONE (19:20)
[2019-04-07] MEDS ORDERED: MAG HYDROX/AL HYDROX/SIMETH 30 ML UNIT-DOSE CUP ONE (19:20)
--- NOTE | 2019-04-07 19:22 | PDOC ---
Attending Attestation - Resident Resident Name: Gaudencio Martinez - ED Attending Attestation I have performed the following: I have examined & evaluated the patient, The case was reviewed & discussed with the resident, I agree w/resident's findings & plan, Exceptions are as noted - HPI HPI: 04/07/19 19:21 this 53 yo female came to the ED because of 4 episodes of vomiting and diarrhea today.She has c/o epigastric pain 04/07/19 19:23 - Physicial Exam PE: 04/07/19 19:23 obese 53 yo female with N,VD head ncat neck supple lungs cta b/l cvs [id number] abd protuberant,no appreciable focal tenderness skin warm and dry neuro axox3,moving all extremities - Medical Decision Making 04/07/19 19:33 obese 54 yo female p/w 1 day of NVD psh c section x 2 ,Tubal ligation go history significant for insulin dependent diabetes, morbid obesity, seizures , stage III chronic renal disease 04/07/19 19:35 04/07/19 21:00 labs reviewed and unremarkable UA negative [id number] acetone negative pt's nausea and vomiting resolved she had one episode of diarrhea while in the ED imp gastroenteris plan d/c home. Pt has an appt w Dr Marco Antonio Hugo tomorrow
[2019-04-07 19:48] LABS: BASO % 1.2 % (0-2.0); EOS % 6.1 % (0-4.5); HEMATOCRIT 34.8 % (32.4-45.2); HEMOGLOBIN 11.3 GM/dL (10.7-15.3); LYMPH % 20.8 % (8-40); MCHC 32.3 g/dl (32.0-36.0); MEAN CELL VOLUME 80.4 fl (80-96); MEAN PLT VOLUME 9.2 fl (7.5-11.1); MONO % 5.8 % (3.8-10.2); NEUT % 66.1 % (42.8-82.8); PLATELET COUNT 249 K/MM3 (134-434); RBC 4.33 M/mm3 (3.60-5.2); RDW 13.5 % (11.6-15.6); WHITE BLOOD COUNT 8.8 K/mm3 (4.0-10.0)
[2019-04-07 19:52] LABS: PH,URINE 8.5 (5.0-8.0); URINE APPEARANCE CLEAR; URINE BILIRUBIN NEGATIVE (NEGATIVE); URINE COLOR YELLOW; URINE GLUCOSE (UA) NEGATIVE (NEGATIVE); URINE KETONE NEGATIVE (NEGATIVE); URINE LEUK ESTERASE NEGATIVE (NEGATIVE); URINE NITRITE NEGATIVE (NEGATIVE); URINE PROTEIN NEGATIVE (NEGATIVE); URINE UROBILINOGEN 0.2 mg/dL (0.2-1.0)
[2019-04-07 20:16] LABS: ACETONE SERUM NEGATIVE (NEGATIVE)
[2019-04-07 20:24] LABS: INR 0.97 (0.83-1.09); PROTHROMBIN TIME (PATIENT) 11.5 SEC (9.7-13.0)
[2019-04-07 20:30] LABS: ALBUMIN 3.8 g/dl (3.4-5.0); ALK PHOS 64 U/L (45-117); ANION GAP 8 MMOL/L (8-16); BILIRUBIN,TOTAL 0.3 mg/dL (0.2-1); BLOOD UREA NITROGEN 12.3 mg/dL (7-18); CALCIUM 9.4 mg/dL (8.5-10.1); CHLORIDE 103 mmol/L (98-107); CO2 29 mmol/L (21-32); CREATININE 0.9 mg/dL (0.55-1.3); GLUCOSE,RANDOM 134 mg/dL (74-106); POTASSIUM 3.9 mmol/L (3.5-5.1); SGOT/AST 12 U/L (15-37); SGPT/ALT 19 U/L (13-61); SODIUM 141 mmol/L (136-145); TOT PROT 7.3 g/dl (6.4-8.2)
[2019-04-07 20:32] LABS: ACTIVATED PTT 33.2 SECONDS (25.2-36.5)
[2019-04-07 20:51] VITALS: TEMP 98.1
== END 2019-04-07 21:17 | disposition home or self-care (01) ==
LOC: JER 17:33
PROC: 3E033GC Introduction of Other Therapeutic Substance into Peripheral Vein, Percutaneous Approach (ICD-10-PCS; principal; 2019-04-07)
PROC: 3E033GC Introduction of Other Therapeutic Substance into Peripheral Vein, Percutaneous Approach (ICD-10-PCS; 2019-04-07)
DX: K52.9 Noninfective gastroenteritis and colitis, unspecified (principal); I10 Essential (primary) hypertension; E11.9 Type 2 diabetes mellitus without complications; Z79.84 Long term (current) use of oral hypoglycemic drugs; E03.9 Hypothyroidism, unspecified; E78.00 Pure hypercholesterolemia, unspecified; J44.9 Chronic obstructive pulmonary disease, unspecified; G40.909 Epilepsy, unspecified, not intractable, without status epilepticus; F41.9 Anxiety disorder, unspecified; F31.9 Bipolar disorder, unspecified; I69.854 Hemiplegia and hemiparesis following other cerebrovascular disease affecting left non-dominant side; Z99.89 Dependence on other enabling machines and devices
CPT/HCPCS: 36415; 80053; 81003; 82009; 83605; 83690; 85025; 85610; 85730; 87077; 87086; 96365; 96375; 99281-25; J7030

== ENCOUNTER 2019-05-01 05:40 | Emergency (ER) | payer OTHER ==
[2019-05-01 05:54] VITALS: BMI 48.9
--- NOTE | 2019-05-01 06:16 | PDOC ---
History of Present Illness <Mouna Avina - Last Filed: 05/01/19 07:02> <Cyrus Cisneros - Last Filed: 05/01/19 09:13> - General Chief Complaint: Overdose Stated Complaint: DIZZY Time Seen by Provider: 05/01/19 05:54 Past History - Past Medical History Asthma: Yes Cardiac Disorders: No 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) COPD: Yes (on inhalers) CHF: No Dementia: No Diabetes: Yes GI Disorders: No Disorders: No HTN: Yes Hypercholesterolemia: Yes Liver Disease: Yes (hep C - treated) Psychiatric Problems: Yes Seizures: Yes Thyroid Disease: Yes (hypothyroid) - Surgical History Abdominal Surgery: Yes (UMBILICAL HERNIA) - Immunization History Immunization Up to Date: Yes - Psycho Social/Smoking Cessation Hx Smoking History: Never smoked Have you smoked in the past 12 months: No If you are a former smoker, when did you quit?: 5 YEARS AGO Information on smoking cessation initiated: No 'Breaking Loose' booklet given: 09/16/14 Hx Alcohol Use: No Drug/Substance Use Hx: No Substance Use Type: None Hx Substance Use Treatment: No <Mouna Avina - Last Filed: 05/01/19 07:02> <Cyrus Cisneros - Last Filed: 05/01/19 09:13> - Past Medical History Allergies/Adverse Reactions: Allergies Allergy/AdvReac Type Severity Reaction Status Date / Time Iodinated Contrast Media Allergy Intermediate Itching Verified 05/01/19 05:48 [Iodinated Contrast Media - IV Dye] azithromycin AdvReac Intermediate Itching Verified 05/01/19 05:48 Home Medications: Ambulatory Orders Fluoxetine HCl [Prozac -] 40 mg PO DAILY 09/15/14 Albuterol Sulfate Inhaler - [Ventolin HFA Inhaler -] 1 - 2 inh PO QID 03/15/16 clonazePAM [Klonopin -] 0.5 mg PO TID PRN 05/12/17 Atorvastatin Ca [Lipitor] 20 mg PO HS 09/09/17 Tiotropium [place] [Spiriva] 1 inh PO DAILY 09/09/17 Loratadine [Claritin] 10 mg PO DAILY 09/11/17 Albuterol 2.5/Ipratropium 0.5 [Duoneb -] 1 amp NEB RQID #120 amp 10/31/17 Furosemide [Lasix -] 40 mg PO DAILY 04/06/18 Semaglutide [Ozempic] 1 mg SQ Q7D 06/04/18 Gabapentin [Neurontin] 600 mg PO TID 08/02/18 Lisinopril [Prinivil] 10 mg PO DAILY 09/28/18 Ferrous Sulfate [Iron] 325 mg PO DAILY 02/21/19 Omeprazole 40 mg PO DAILY 02/21/19 Zolpidem Tartrate [Ambien] 10 mg PO HS PRN 02/21/19 Hydrocodone/Acetaminophen [[place] 10-325 Tablet] 1 each PO TID PRN #70 tablet MDD 3 03/27/19 Metoprolol Tartrate [Lopressor -] 25 mg PO DAILY 03/27/19 Ondansetron [Zofran *Odt*] 4 mg SL TID PRN #6 od.tablet 04/07/19 Pramipexole Di-HCl [Mirapex] 1 mg PO HS 05/01/19 *Physical Exam - Vital Signs Last Vital Signs Temp Pulse Resp BP Pulse Ox 97.4 F L 106 H 19 119/79 97 05/01/19 05:46 05/01/19 05:46 05/01/19 05:46 05/01/19 05:46 05/01/19 05:46 <Mouna Avina - Last Filed: 05/01/19 07:02> - Vital Signs Last Vital Signs Temp Pulse Resp BP Pulse Ox 97.8 F 94 H 16 122/67 98 05/01/19 07:15 05/01/19 07:54 05/01/19 07:54 05/01/19 07:54 05/01/19 07:54 <Cyrus Cisneros - Last Filed: 05/01/19 09:13> ED Treatment Course - LABORATORY CBC & Chemistry Diagram: 05/01/19 06:30 05/01/19 06:30 - RADIOLOGY Radiology Studies Ordered: Category Date Time Status CHEST X-RAY PORTABLE* [RAD] Stat Radiology 05/01/19 06:15 Ordered <Mouna Avina - Last Filed: 05/01/19 07:02> - LABORATORY CBC & Chemistry Diagram: 05/01/19 06:30 05/01/19 06:30 - ADDITIONAL ORDERS Additional order review: Laboratory Results 05/01/19 05/01/19 05/01/19 06:36 06:36 06:30 Sodium Potassium Chloride Carbon Dioxide Anion Gap BUN Creatinine Est GFR (CKD-EPI)AfAm Est GFR (CKD-EPI)NonAf Random Glucose Calcium Total Bilirubin AST ALT Alkaline Phosphatase Creatine Kinase 108 Troponin I < 0.02 Total Protein Albumin Urine Color Urine Appearance Urine pH Ur Specific [place] Urine Protein Urine Glucose (UA) Urine Ketones Urine Blood Urine Nitrite Urine Bilirubin Urine Urobilinogen Ur Leukocyte Esterase Urine WBC (Auto) Urine RBC (Auto) Urine Casts (Auto) U Epithel Cells (Auto) Urine Bacteria (Auto) Urine HCG, Qual Negative Salicylates Opiates Screen Negative Methadone Screen Negative Acetaminophen Barbiturate Screen Negative Phencyclidine Screen Negative Ur Amphetamines Screen Negative MDMA (Ecstasy) Screen Negative Benzodiazepines Screen Negative Cocaine Screen Negative U Marijuana (THC) Screen Negative Alcohol, Quantitative 05/01/19 05/01/19 05/01/19 06:30 06:30 06:30 Sodium 138 Potassium 3.9 Chloride 104 Carbon Dioxide 27 Anion Gap 8 BUN 10.9 Creatinine 1.0 Est GFR (CKD-EPI)AfAm 75.54 Est GFR (CKD-EPI)NonAf 65.18 Random Glucose 314 H Calcium 8.5 Total Bilirubin 0.2 AST 15 ALT 22 Alkaline Phosphatase 78 Creatine Kinase Troponin I Total Protein 7.2 Albumin 3.4 Urine Color Yellow Urine Appearance Clear Urine pH 6.0 D Ur Specific [place] 1.019 Urine Protein Negative Urine Glucose (UA) 3+ H Urine Ketones Negative Urine Blood 3+ H Urine Nitrite Negative Urine Bilirubin Negative Urine Urobilinogen 0.2 Ur Leukocyte Esterase 1+ H Urine WBC (Auto) 5 Urine RBC (Auto) 130 Urine Casts (Auto) 1 U Epithel Cells (Auto) 2.7 Urine Bacteria (Auto) 17.8 Urine HCG, Qual Salicylates < 1.7 L Opiates Screen Methadone Screen Acetaminophen <2.0 Barbiturate Screen Phencyclidine Screen Ur Amphetamines Screen MDMA (Ecstasy) Screen Benzodiazepines Screen Cocaine Screen U Marijuana (THC) Screen Alcohol, Quantitative < 3.0 05/01/19 06:30 RBC 4.35 MCV 80.3 MCHC 32.8 RDW 14.2 MPV 9.9 Neutrophils % 55.2 Lymphocytes % 24.6 Monocytes % 6.2 Eosinophils % 13.3 H D Basophils % 0.7 - Medications Given in the ED: ED Medications Discontinued Medications Generic Name Dose Route Start Last Admin Trade Name [place] PRN Reason Stop Dose Admin Sodium Chloride 1,000 mls @ 1,000 mls/hr 05/01/19 06:18 05/01/19 06:59 Normal Saline - IV 05/01/19 07:17 1,000 mls/hr ASDIR STA Administration <Cyrus Cisneros - Last Filed: 05/01/19 09:13> Medical Decision Making - Medical Decision Making HPI: 53yo F with PMH of HTN, DM, COPD, Hepatitis C (s/p treatment), prior CVA (2015, residual L sided weakness and walks with a walker), anxiety, seizure disorder, bipolar disorder, and depression presenting after taking more medication than prescribed. Patient states she was having joint pain and trouble sleeping and decided to take pills to help her sleep at 5am. She was upset after she got in an argument with her daughter. Patient took the pills and thereafter felt lightheaded and had chest pain. She denies trying to kill herself or suicidal ideation. Has been hospitalized for her depression in the past, most recently 3.5 years ago. Sees her psychiatrist regularly. Admits to cutting her right forearm on . No fevers or chills. Patient took: 6 x gabapentin 7.5mg 2 x clonapin 0.5mg 2 x HCTZ 50mg 2 x (does not know the name but starts with "pra" and is a medicine for RLS) ROS: Constitutional: no fever, no chills HEENT: no throat pain, no dysphagia Cardiovascular: +chest pain, no palpitations Respiratory: no cough, no shortness of breath Gastrointestinal: no abdominal pain, no nausea Genitourinary: no dysuria, no hematuria Musculoskeletal: no myalgia, no arthralgia Skin: no rash, no itching Neurologic: no headache, +lightheaded PE: General: Awake, alert, and fully oriented, morbidly obese, tearful Head: No signs of trauma Eyes: EOMI, sclera anicteric ENT: Moist mucus membranes Neck: Normal ROM, supple Lungs: Lungs clear, Normal breath sounds Cardio: Regular rhythm, S1 and S2 present Abdomen: Soft, nontender. No guarding, no rebound, no masses Extremities: Normal range of motion, Distal pulses present SKIN: Warm, Dry, normal turgor Neurologic: Cranial nerves II through XII grossly intact. Normal speech ED Course/MDM: DDX including but not limited to suicide attempt, intoxication, unintentional overdose, depression, anxiety Labs, EKG, CXR Dr. Mustafa spoke with poison control; recommendations to monitor vital signs and exam for lethargy for up to 24 hours IV fluids 05/01/19 06:16 Patient endorsed to CONTRACT PROJECT MANAGER Bashir Shelley Patient signed out to Dr. Cisneros and day team 05/01/19 07:00 05/01/19 07:03 <Mouna Avina - Last Filed: 05/01/19 07:02> Discharge <Mouna Avina - Last Filed: 05/01/19 07:02> - Discharge Information Problems reviewed: Yes - Admission Yes <Cyrus Cisneros - Last Filed: 05/01/19 09:13> - Discharge Information Clinical Impression/Diagnosis: Tachycardia, Hyperglycemia Overdose Qualifiers: Encounter type: initial encounter Injury intent: undetermined intent Qualified Code(s): T50.904A - Poisoning by unspecified drugs, medicaments and biological substances, undetermined, initial encounter Condition: Fair
[2019-05-01] MEDS ORDERED: SODIUM CHLORIDE 1,000 ML IV STA (06:18)
[2019-05-01 07:03] LABS: BASO % 0.7 % (0-2.0); EOS % 13.3 % (0-4.5); HEMOGLOBIN 11.5 GM/dL (10.7-15.3); LYMPH % 24.6 % (8-40); MCH 26.4 pg (25.7-33.7); MCHC 32.8 g/dl (32.0-36.0); MEAN CELL VOLUME 80.3 fl (80-96); MEAN PLT VOLUME 9.9 fl (7.5-11.1); MONO % 6.2 % (3.8-10.2); NEUT % 55.2 % (42.8-82.8); PLATELET COUNT 203 K/MM3 (134-434); RBC 4.35 M/mm3 (3.60-5.2); RDW 14.2 % (11.6-15.6); WHITE BLOOD COUNT 7.9 K/mm3 (4.0-10.0)
[2019-05-01 07:08] LABS: COCAINE, UR NEGATIVE ng/ml (CUTOFF=300); METHADONE, UR NEGATIVE ng/ml (CUTOFF=300); OPIATES, URI NEGATIVE ng/ml (CUTOFF=300); PHENCYCLIDINE,URINE NEGATIVE ng/ml (CUTOFF=25); URINE AMPHETAMINES NEGATIVE ng/ml (CUTOFF=500); URINE BARBITURATES NEGATIVE ng/ml (CUTOFF=200); URINE BENZODIAZEPINES NEGATIVE ng/ml (CUTOFF=200)
[2019-05-01 07:28] LABS: ALBUMIN 3.4 g/dl (3.4-5.0); ALK PHOS 78 U/L (45-117); ANION GAP 8 MMOL/L (8-16); BILIRUBIN,TOTAL 0.2 mg/dL (0.2-1); BLOOD UREA NITROGEN 10.9 mg/dL (7-18); CALCIUM 8.5 mg/dL (8.5-10.1); CHLORIDE 104 mmol/L (98-107); CO2 27 mmol/L (21-32); GLUCOSE,RANDOM 314 mg/dL (74-106); POTASSIUM 3.9 mmol/L (3.5-5.1); SGOT/AST 15 U/L (15-37); SGPT/ALT 22 U/L (13-61); SODIUM 138 mmol/L (136-145); TOT PROT 7.2 g/dl (6.4-8.2)
[2019-05-01] MEDS ORDERED: INSULIN REGULAR HUMAN 100 UNITS/ML *VIAL SQ ONE (08:19)
[2019-05-01 08:20] LABS: EPI CELLS 2.7 /HPF (0-5/HPF); HYALINE CASTS 1 /lpf (0-8); URINE APPEARANCE CLEAR; URINE BACTERIA 17.8 /hpf (NEGATIVE); URINE BILIRUBIN NEGATIVE (NEGATIVE); URINE COLOR YELLOW; URINE GLUCOSE (UA) 3+ (NEGATIVE); URINE KETONE NEGATIVE (NEGATIVE); URINE LEUK ESTERASE 1+ (NEGATIVE); URINE NITRITE NEGATIVE (NEGATIVE); URINE PROTEIN NEGATIVE (NEGATIVE); URINE RBC 130 /hpf (0-4); URINE UROBILINOGEN 0.2 mg/dL (0.2-1.0); URINE WBC 5 /hpf (0-5)
--- NOTE | 2019-05-01 09:46 | HP ---
CHIEF COMPLAINT: Suicide ideation/pill taking PCP: Damaris Solis NP pain management: Dr. Gray HISTORY OF PRESENT ILLNESS: 53yo F with h/o of HTN, Type 2 DM, Hepatitis C s/p Harvoni, CVA (2014; L residual LExt weakness), chronic L leg pain 2/2 to OA, RLS, Bipolar disorder with depression who presents today after taking many pills. Pt reports she was at home and had an argument with her daughter. she had pain in her L leg usual to her regular pain and could not fall asleep due to it. At this point she had suicidal ideations and took a handful of her home medications (8 Gabapentin 600mg, 6, Clonazepam 0.5mg, 3-4 Pramipexole 1mg) in an attempt to go to bed. Pt came to the ER for further evaluation and because pt still has suicidal ideations. Pt denies any dizziness, lightheadedness, shortness of breath, chest pain, palpitations, abdominal pain, back pain. Currently pt has suicidal ideations, however is upset at herself. She admits to cutting her L wrist last which she sought help for at that time. Pt has been hospitalized for psychiatric reasons about 3.5 years ago for depression and self-harm. She regularly sees her doctors and has seen psychiatry in the past. PAST MEDICAL HISTORY: HTN, Type 2 DM, Hepatitis C s/p Harvoni, CVA (2014; L residual LExt weakness), chronic L leg pain 2/2 to OA, RLS, Bipolar disorder with depression PAST SURGICAL HISTORY: x3; umbilical hernia repair Social History: Smoking:former smoker; quit 20 years ago; 1/2 PPD Alcohol:denies Drugs: denies Allergies Iodinated Contrast Media [Iodinated Contrast Media - IV Dye] Allergy ( Intermediate, Verified 05/01/19 05:48) Itching azithromycin Adverse Reaction (Intermediate, Verified 05/01/19 05:48) Itching 10/26/17 SUSPECTED ADR TO ZITHROMAX . RX: MILD: ITCHING,NAUSEA. HOME MEDICATIONS: Home Medications Medication Instructions Recorded Fluoxetine HCl [Prozac -] 40 mg PO DAILY 09/15/14 Albuterol Sulfate Inhaler - 1 - 2 inh PO QID 03/15/16 [Ventolin HFA Inhaler -] clonazePAM [Klonopin -] 0.5 mg PO TID PRN 05/12/17 Atorvastatin Ca [Lipitor] 20 mg PO HS 09/09/17 Tiotropium [place] [Spiriva] 1 inh PO DAILY 09/09/17 Loratadine [Claritin] 10 mg PO DAILY 09/11/17 Albuterol 2.5/Ipratropium 0.5 1 amp NEB RQID #120 amp 10/31/17 [Duoneb -] Furosemide [Lasix -] 40 mg PO DAILY 04/06/18 Semaglutide [Ozempic] 1 mg SQ Q7D 06/04/18 Gabapentin [Neurontin] 600 mg PO TID 08/02/18 Lisinopril [Prinivil] 10 mg PO DAILY 09/28/18 Ferrous Sulfate [Iron] 325 mg PO DAILY 02/21/19 Omeprazole 40 mg PO DAILY 02/21/19 Zolpidem Tartrate [Ambien] 10 mg PO HS PRN 02/21/19 Hydrocodone/Acetaminophen [[place] 1 each PO TID PRN #70 tablet MDD 3 03/27/19 10-325 Tablet] Metoprolol Tartrate [Lopressor -] 25 mg PO DAILY 03/27/19 Ondansetron [Zofran *Odt*] 4 mg SL TID PRN #6 od.tablet 04/07/19 Pramipexole Di-HCl [Mirapex] 1 mg PO HS 05/01/19 REVIEW OF SYSTEMS CONSTITUTIONAL: Absent: fever, chills, diaphoresis, generalized weakness, malaise, loss of appetite, weight change HEENT: Absent: rhinorrhea, nasal congestion, throat pain, throat swelling, difficulty swallowing, mouth swelling, ear pain, eye pain, visual changes CARDIOVASCULAR: Absent: chest pain, syncope, palpitations, irregular heart rate, lightheadedness , peripheral edema RESPIRATORY: Absent: cough, shortness of breath, dyspnea with exertion, orthopnea, wheezing, stridor, hemoptysis GASTROINTESTINAL: Absent: abdominal pain, abdominal distension, nausea, vomiting, diarrhea, constipation, melena, hematochezia GENITOURINARY: Absent: dysuria, frequency, urgency, hesitancy, hematuria, flank pain, genital pain MUSCULOSKELETAL: Absent: myalgia, arthralgia, joint swelling, back pain, neck pain SKIN: Absent: rash, itching, pallor HEMATOLOGIC/IMMUNOLOGIC: Absent: easy bleeding, easy bruising, lymphadenopathy, frequent infections ENDOCRINE: Absent: unexplained weight gain, unexplained weight loss, heat intolerance, cold intolerance NEUROLOGIC: Absent: headache, focal weakness or paresthesias, dizziness, unsteady gait, seizure, mental status changes, bladder or bowel incontinence PSYCHIATRIC: Absent: anxiety, depression, suicidal or homicidal ideation, hallucinations. PHYSICAL EXAMINATION Vital Signs - 24 hr 05/01/19 05/01/19 05/01/19 05:46 06:24 07:15 Temperature 97.4 F L 97.8 F Pulse Rate 106 H Pulse Rate [ 101 H Left Radial] Respiratory 19 18 Rate Blood Pressure 119/79 Blood Pressure 122/67 [Right Arm] O2 Sat by Pulse 97 99 96 Oximetry (%) 05/01/19 07:54 Temperature Pulse Rate Pulse Rate [ 94 H Left Radial] Respiratory 16 Rate Blood Pressure Blood Pressure 122/67 [Right Arm] O2 Sat by Pulse 98 Oximetry (%) GENERAL: NAD, awake, alert, and fully oriented HEENT: NC/AT, EOMI, [place], sclera anicteric, MMM LUNGS: Breath sounds equal, clear to auscultation bilaterally. No wheezes, and no crackles. No accessory muscle use. On RA HEART: Regular rate and tachycardic, normal S1 and S2 without murmur, ABDOMEN: Soft, obese, nontender, not distended, normoactive bowel sounds, no guarding, EXTREMITIES: 2+ DP pulses, warm, well-perfused. No calf tenderness. No peripheral edema. PSYCHIATRIC: Cooperative. Depressed, poor eye contact, distraught. SKIN: Warm, dry, no rashes or lesions noted Laboratory Results - last 24 hr 05/01/19 05/01/19 05/01/19 06:30 06:30 06:30 WBC 7.9 RBC 4.35 Hgb 11.5 Hct 35.0 MCV 80.3 MCH 26.4 MCHC 32.8 RDW 14.2 Plt Count 203 MPV 9.9 Absolute Neuts (auto) 4.4 Neutrophils % 55.2 Lymphocytes % 24.6 Monocytes % 6.2 Eosinophils % 13.3 H D Basophils % 0.7 Nucleated RBC % 0 Sodium 138 Potassium 3.9 Chloride 104 Carbon Dioxide 27 Anion Gap 8 BUN 10.9 Creatinine 1.0 Est GFR (CKD-EPI)AfAm 75.54 Est GFR (CKD-EPI)NonAf 65.18 Random Glucose 314 H Calcium 8.5 Total Bilirubin 0.2 AST 15 ALT 22 Alkaline Phosphatase 78 Creatine Kinase Troponin I Total Protein 7.2 Albumin 3.4 Urine Color Urine Appearance Urine pH Ur Specific [place] Urine Protein Urine Glucose (UA) Urine Ketones Urine Blood Urine Nitrite Urine Bilirubin Urine Urobilinogen Ur Leukocyte Esterase Urine WBC (Auto) Urine RBC (Auto) Urine Casts (Auto) U Epithel Cells (Auto) Urine Bacteria (Auto) Urine HCG, Qual Salicylates < 1.7 L Opiates Screen Methadone Screen Acetaminophen <2.0 Barbiturate Screen Phencyclidine Screen Ur Amphetamines Screen MDMA (Ecstasy) Screen Benzodiazepines Screen Cocaine Screen U Marijuana (THC) Screen Alcohol, Quantitative < 3.0 05/01/19 05/01/19 05/01/19 06:30 06:30 06:36 WBC RBC Hgb Hct MCV MCH MCHC RDW Plt Count MPV Absolute Neuts (auto) Neutrophils % Lymphocytes % Monocytes % Eosinophils % Basophils % Nucleated RBC % Sodium Potassium Chloride Carbon Dioxide Anion Gap BUN Creatinine Est GFR (CKD-EPI)AfAm Est GFR (CKD-EPI)NonAf Random Glucose Calcium Total Bilirubin AST ALT Alkaline Phosphatase Creatine Kinase 108 Troponin I < 0.02 Total Protein Albumin Urine Color Yellow Urine Appearance Clear Urine pH 6.0 D Ur Specific [place] 1.019 Urine Protein Negative Urine Glucose (UA) 3+ H Urine Ketones Negative Urine Blood 3+ H Urine Nitrite Negative Urine Bilirubin Negative Urine Urobilinogen 0.2 Ur Leukocyte Esterase 1+ H Urine WBC (Auto) 5 Urine RBC (Auto) 130 Urine Casts (Auto) 1 U Epithel Cells (Auto) 2.7 Urine Bacteria (Auto) 17.8 Urine HCG, Qual Salicylates Opiates Screen Negative Methadone Screen Negative Acetaminophen Barbiturate Screen Negative Phencyclidine Screen Negative Ur Amphetamines Screen Negative MDMA (Ecstasy) Screen Negative Benzodiazepines Screen Negative Cocaine Screen Negative U Marijuana (THC) Screen Negative Alcohol, Quantitative 05/01/19 06:36 WBC RBC Hgb Hct MCV MCH MCHC RDW Plt Count MPV Absolute Neuts (auto) Neutrophils % Lymphocytes % Monocytes % Eosinophils % Basophils % Nucleated RBC % Sodium Potassium Chloride Carbon Dioxide Anion Gap BUN Creatinine Est GFR (CKD-EPI)AfAm Est GFR (CKD-EPI)NonAf Random Glucose Calcium Total Bilirubin AST ALT Alkaline Phosphatase Creatine Kinase Troponin I Total Protein Albumin Urine Color Urine Appearance Urine pH Ur Specific [place] Urine Protein Urine Glucose (UA) Urine Ketones Urine Blood Urine Nitrite Urine Bilirubin Urine Urobilinogen Ur Leukocyte Esterase Urine WBC (Auto) Urine RBC (Auto) Urine Casts (Auto) U Epithel Cells (Auto) Urine Bacteria (Auto) Urine HCG, Qual Negative Salicylates Opiates Screen Methadone Screen Acetaminophen Barbiturate Screen Phencyclidine Screen Ur Amphetamines Screen MDMA (Ecstasy) Screen Benzodiazepines Screen Cocaine Screen U Marijuana (THC) Screen Alcohol, Quantitative ASSESSMENT/PLAN: Suicidal Ideation Substance ingestion Hyperglycemia with Type 2 DM Restless Leg syndrome HTN LLExt pain (chronic) --Poison control called who reported only concern for BP IF pt is hypotensive which she has not been --Given inappropriate cuff size and forearm, pt is hemodynamically stable --Poison control cleared patient from medical release due to normotensive pressures, absence of GCS decline --Psychiatry consult for inpatient psych transfer due to suicidal ideations --1:1 to maintain --Given 4U Novolog; recommend home medications and bgm checks per home routine FEN: Fluids: Po Electrolyte abnormalities: None Nutrition: Diabetic sodium controlled DISPO: ED OBS for psychiatric eval Case discussed with Dr. Oliveros and Blayne Visit type - Emergency Visit Emergency Visit: Yes ED Registration Date: 05/01/19 Care time: The patient presented to the Emergency Department on the above date and was hospitalized for further evaluation of their emergent condition. - New Patient This patient is new to me today: Yes Date on this admission: 05/01/19 - Critical Care Critical Care patient: No
--- NOTE | 2019-05-01 10:09 | PDOC ---
*Physical Exam - Vital Signs Last Vital Signs Temp Pulse Resp BP Pulse Ox 97.8 F 94 H 16 122/67 98 05/01/19 07:15 05/01/19 07:54 05/01/19 07:54 05/01/19 07:54 05/01/19 07:54 - Physical Exam Comments: 05/01/19 10:08 Patient now endorses suicidal ideations and symptoms of a major depressive episode. Poison control re-consulted by internal medicine team, states that admission for bradycardia is not indicated at this time. Will place in ED/ before monitoring of altered mental status. Awaiting evaluation by psych and transferred to psychiatric facility. ED Treatment Course - LABORATORY CBC & Chemistry Diagram: 05/01/19 06:30 05/01/19 06:30 - ADDITIONAL ORDERS Additional order review: Laboratory Results 05/01/19 05/01/19 05/01/19 06:36 06:36 06:30 Sodium Potassium Chloride Carbon Dioxide Anion Gap BUN Creatinine Est GFR (CKD-EPI)AfAm Est GFR (CKD-EPI)NonAf Random Glucose Calcium Total Bilirubin AST ALT Alkaline Phosphatase Creatine Kinase 108 Troponin I < 0.02 Total Protein Albumin Urine Color Urine Appearance Urine pH Ur Specific [place] Urine Protein Urine Glucose (UA) Urine Ketones Urine Blood Urine Nitrite Urine Bilirubin Urine Urobilinogen Ur Leukocyte Esterase Urine WBC (Auto) Urine RBC (Auto) Urine Casts (Auto) U Epithel Cells (Auto) Urine Bacteria (Auto) Urine HCG, Qual Negative Salicylates Opiates Screen Negative Methadone Screen Negative Acetaminophen Barbiturate Screen Negative Phencyclidine Screen Negative Ur Amphetamines Screen Negative MDMA (Ecstasy) Screen Negative Benzodiazepines Screen Negative Cocaine Screen Negative U Marijuana (THC) Screen Negative Alcohol, Quantitative 05/01/19 05/01/19 05/01/19 06:30 06:30 06:30 Sodium 138 Potassium 3.9 Chloride 104 Carbon Dioxide 27 Anion Gap 8 BUN 10.9 Creatinine 1.0 Est GFR (CKD-EPI)AfAm 75.54 Est GFR (CKD-EPI)NonAf 65.18 Random Glucose 314 H Calcium 8.5 Total Bilirubin 0.2 AST 15 ALT 22 Alkaline Phosphatase 78 Creatine Kinase Troponin I Total Protein 7.2 Albumin 3.4 Urine Color Yellow Urine Appearance Clear Urine pH 6.0 D Ur Specific [place] 1.019 Urine Protein Negative Urine Glucose (UA) 3+ H Urine Ketones Negative Urine Blood 3+ H Urine Nitrite Negative Urine Bilirubin Negative Urine Urobilinogen 0.2 Ur Leukocyte Esterase 1+ H Urine WBC (Auto) 5 Urine RBC (Auto) 130 Urine Casts (Auto) 1 U Epithel Cells (Auto) 2.7 Urine Bacteria (Auto) 17.8 Urine HCG, Qual Salicylates < 1.7 L Opiates Screen Methadone Screen Acetaminophen <2.0 Barbiturate Screen Phencyclidine Screen Ur Amphetamines Screen MDMA (Ecstasy) Screen Benzodiazepines Screen Cocaine Screen U Marijuana (THC) Screen Alcohol, Quantitative < 3.0 05/01/19 06:30 RBC 4.35 MCV 80.3 MCHC 32.8 RDW 14.2 MPV 9.9 Neutrophils % 55.2 Lymphocytes % 24.6 Monocytes % 6.2 Eosinophils % 13.3 H D Basophils % 0.7 - Medications Given in the ED: ED Medications Discontinued Medications Generic Name Dose Route Start Last Admin Trade Name Freq PRN Reason Stop Dose Admin Sodium Chloride 1,000 mls @ 1,000 mls/hr 05/01/19 06:18 05/01/19 06:59 Normal Saline - IV 05/01/19 07:17 1,000 mls/hr ASDIR STA Administration Insulin Human Regular 4 units 05/01/19 08:19 05/01/19 09:07 Novolin R Vial *For Ivpush Or Iv Drip Only* SQ 05/01/19 08:20 4 units ONCE ONE Administration Discharge - Discharge Information Clinical Impression/Diagnosis: Tachycardia, Hyperglycemia Overdose Qualifiers: Encounter type: initial encounter Injury intent: undetermined intent Qualified Code(s): T50.904A - Poisoning by unspecified drugs, medicaments and biological substances, undetermined, initial encounter Condition: Fair - Follow up/Referral - Patient Discharge Instructions - Post Discharge Activity
--- NOTE | 2019-05-01 11:23 | EKG ---
Test Reason : Blood Pressure : / mmHG Vent. Rate : 106 BPM Atrial Rate : 106 BPM P-R Int : 158 ms QRS Dur : 090 ms QT Int : 364 ms P-R-T Axes : 042 -39 031 degrees QTc Int : 483 ms POOR DATA QUALITY, INTERPRETATION MAY BE ADVERSELY AFFECTED SINUS TACHYCARDIA LEFT AXIS DEVIATION MINIMAL VOLTAGE CRITERIA FOR LVH, MAY BE NORMAL VARIANT ABNORMAL ECG WHEN COMPARED WITH ECG OF 21-FEB-2019 12:10, NO SIGNIFICANT CHANGE WAS FOUND Confirmed by ARNALDO MENDOZA, ANA LUISA ([id number]) on 05/01/2019 11:23:01 AM Referred By: Confirmed By:ANA LUISA MCINTOSH MD
[2019-05-01] MEDS ORDERED: LIDOCAINE 5% TOPICAL PATCH TP ONE (13:15)
[2019-05-01] MEDS ORDERED: LIDOCAINE 5% TOPICAL PATCH ONE (13:18)
--- NOTE | 2019-05-01 14:38 | CONSULT ---
Consultation: REQUESTING PROVIDER: ER CONSULT REQUEST: We have been asked to medically evaluate this patient for ( specify). HISTORY OF PRESENT ILLNESS: Seen and examined; please see resident note for further historical information. Briefly, this is a 53 y/o presenting after intentional extra doses of medication (story changed between ER and IM but she confirmed doses with us per our documentation). She is medically clear based on this with discussion with poison control and ER. She is suicidal without a clear plan and requires psych clearance. No clear UTI sx but she has +UA and recent GNB cx @ 10k CFU with no MDRO; can give a brief course of keflex and FU cx with PCP but highly doubt UTI. REVIEW OF SYSTEMS: 10 sys ROS done and negative aside from HPI PMH PSH and SH reviewed (prior suicidality with psych admit >2 years ago per pt) Fh negative for sudden cardiac PHYSICAL EXAMINATION Vital Signs - 24 hr 05/01/19 05/01/19 05/01/19 05:46 06:24 07:15 Temperature 97.4 F L 97.8 F Pulse Rate 106 H Pulse Rate [ 101 H Left Radial] Respiratory 19 18 Rate Blood Pressure 119/79 Blood Pressure 122/67 [Right Arm] O2 Sat by Pulse 97 99 96 Oximetry (%) 05/01/19 05/01/19 07:54 12:44 Temperature 98.2 F Pulse Rate Pulse Rate [ 94 H 108 H Left Radial] Respiratory 16 19 Rate Blood Pressure Blood Pressure 122/67 133/72 [Right Arm] O2 Sat by Pulse 98 97 Oximetry (%) GENERAL: Awake, alert, and fully oriented, in no acute distress. HEAD: Normal with no signs of trauma. EYES: Pupils equal, round and reactive to light, extraocular movements intact, sclera anicteric, conjunctiva clear. No lid lag. EARS, NOSE, THROAT: Ears normal, nares patent, oropharynx clear without exudates. Moist mucous membranes. NECK: Normal range of motion, supple without lymphadenopathy, JVD, or masses. LUNGS: Breath sounds equal, clear to auscultation bilaterally. No wheezes, and no crackles. No accessory muscle use. HEART: Regular rate and rhythm, normal S1 and S2 without murmur, rub or gallop. ABDOMEN: Soft, nontender, not distended, normoactive bowel sounds, no guarding, no rebound, no masses. No hepatomegaly or splenomegaly. MUSCULOSKELETAL: Normal range of motion at all joints. No bony deformities or tenderness. No CVA tenderness. UPPER EXTREMITIES: 2+ pulses, warm, well-perfused. No cyanosis. No clubbing. Cap refill <2 seconds. No peripheral edema. LOWER EXTREMITIES: 2+ pulses, warm, well-perfused. No calf tenderness. No peripheral edema. NEUROLOGICAL: Cranial nerves II-XII intact. Normal speech. Normal gait. PSYCHIATRIC: Cooperative. Good eye contact. Appropriate mood and affect. SI endorsed. SKIN: Warm, dry, normal turgor, no rashes or lesions noted. Laboratory Results - last 24 hr 05/01/19 05/01/19 05/01/19 06:30 06:30 06:30 WBC 7.9 RBC 4.35 Hgb 11.5 Hct 35.0 MCV 80.3 MCH 26.4 MCHC 32.8 RDW 14.2 Plt Count 203 MPV 9.9 Absolute Neuts (auto) 4.4 Neutrophils % 55.2 Lymphocytes % 24.6 Monocytes % 6.2 Eosinophils % 13.3 H D Basophils % 0.7 Nucleated RBC % 0 Sodium 138 Potassium 3.9 Chloride 104 Carbon Dioxide 27 Anion Gap 8 BUN 10.9 Creatinine 1.0 Est GFR (CKD-EPI)AfAm 75.54 Est GFR (CKD-EPI)NonAf 65.18 Random Glucose 314 H Calcium 8.5 Total Bilirubin 0.2 AST 15 ALT 22 Alkaline Phosphatase 78 Creatine Kinase Troponin I Total Protein 7.2 Albumin 3.4 Urine Color Urine Appearance Urine pH Ur Specific [place] Urine Protein Urine Glucose (UA) Urine Ketones Urine Blood Urine Nitrite Urine Bilirubin Urine Urobilinogen Ur Leukocyte Esterase Urine WBC (Auto) Urine RBC (Auto) Urine Casts (Auto) U Epithel Cells (Auto) Urine Bacteria (Auto) Urine HCG, Qual Salicylates < 1.7 L Opiates Screen Methadone Screen Acetaminophen <2.0 Barbiturate Screen Phencyclidine Screen Ur Amphetamines Screen MDMA (Ecstasy) Screen Benzodiazepines Screen Cocaine Screen U Marijuana (THC) Screen Alcohol, Quantitative < 3.0 05/01/19 05/01/19 05/01/19 06:30 06:30 06:36 WBC RBC Hgb Hct MCV MCH MCHC RDW Plt Count MPV Absolute Neuts (auto) Neutrophils % Lymphocytes % Monocytes % Eosinophils % Basophils % Nucleated RBC % Sodium Potassium Chloride Carbon Dioxide Anion Gap BUN Creatinine Est GFR (CKD-EPI)AfAm Est GFR (CKD-EPI)NonAf Random Glucose Calcium Total Bilirubin AST ALT Alkaline Phosphatase Creatine Kinase 108 Troponin I < 0.02 Total Protein Albumin Urine Color Yellow Urine Appearance Clear Urine pH 6.0 D Ur Specific [place] 1.019 Urine Protein Negative Urine Glucose (UA) 3+ H Urine Ketones Negative Urine Blood 3+ H Urine Nitrite Negative Urine Bilirubin Negative Urine Urobilinogen 0.2 Ur Leukocyte Esterase 1+ H Urine WBC (Auto) 5 Urine RBC (Auto) 130 Urine Casts (Auto) 1 U Epithel Cells (Auto) 2.7 Urine Bacteria (Auto) 17.8 Urine HCG, Qual Salicylates Opiates Screen Negative Methadone Screen Negative Acetaminophen Barbiturate Screen Negative Phencyclidine Screen Negative Ur Amphetamines Screen Negative MDMA (Ecstasy) Screen Negative Benzodiazepines Screen Negative Cocaine Screen Negative U Marijuana (THC) Screen Negative Alcohol, Quantitative 05/01/19 06:36 WBC RBC Hgb Hct MCV MCH MCHC RDW Plt Count MPV Absolute Neuts (auto) Neutrophils % Lymphocytes % Monocytes % Eosinophils % Basophils % Nucleated RBC % Sodium Potassium Chloride Carbon Dioxide Anion Gap BUN Creatinine Est GFR (CKD-EPI)AfAm Est GFR (CKD-EPI)NonAf Random Glucose Calcium Total Bilirubin AST ALT Alkaline Phosphatase Creatine Kinase Troponin I Total Protein Albumin Urine Color Urine Appearance Urine pH Ur Specific [place] Urine Protein Urine Glucose (UA) Urine Ketones Urine Blood Urine Nitrite Urine Bilirubin Urine Urobilinogen Ur Leukocyte Esterase Urine WBC (Auto) Urine RBC (Auto) Urine Casts (Auto) U Epithel Cells (Auto) Urine Bacteria (Auto) Urine HCG, Qual Negative Salicylates Opiates Screen Methadone Screen Acetaminophen Barbiturate Screen Phencyclidine Screen Ur Amphetamines Screen MDMA (Ecstasy) Screen Benzodiazepines Screen Cocaine Screen U Marijuana (THC) Screen Alcohol, Quantitative Active Medications Generic Name Dose Route Start Last Admin Trade Name Freq PRN Reason Stop Dose Admin Miscellaneous 1 each 05/01/19 22:00 Lidoderm Patch Removal MC DAILY@2200 [facility] ASSESSMENT/PLAN: We spoke with poison control and confirmed with patient; she took anywhere from 4-8 gabapentin with up to 2mg klonopin and 3mg maximum of pramipraxole. Resident confirmed medications with the pharmacy. We called and spoke to poison control who were under the impression that the patient was hypotensive and bradycardic. I informed them that the shelbyn was normotensive and that they had slight tachycardia likely 2/2 emotional stressors. Their only complaint is their chronic leg pain that they manage with their PRN oxycodone at home. They have no respiratory depression, they have no bradycardia, they have a chronotropic response with high normal HR with emotional stressors. No hemodynamic instability Initially tells she couldnt sleep but now admits to SI without plan. Needs psychiatric clearance Can do 5 days keflex for UTI and FU cx to PCP. Please refer her to resident clinic [facility]. Dispo: We will continue to follow the patient. Thank you for this consultative opportunity. Visit type - Emergency Visit Emergency Visit: Yes ED Registration Date: 05/01/19 Care time: The patient presented to the Emergency Department on the above date and was hospitalized for further evaluation of their emergent condition. - New Patient This patient is new to me today: Yes Date on this admission: 05/01/19 - Critical Care Critical Care patient: No
[2019-05-01 17:42] VITALS: TEMP 98.1
--- NOTE | 2019-05-01 19:27 | PN ---
Mental Health Exam - Mental Status Exam Alert and Oriented to: Time, Place, Person Cognitive Function: Good Patient Appearance: Well Groomed (dye red hair) Mood: Apprehensive, Hopeful, Happy Affect: Appropriate, Mood Congruent Patient Behavior: Talkative, Cooperative Speech Pattern: Appropriate Voice Loudness: Normal Thought Process: Intact Thought Disorder: Not Present Hallucinations: None Suicidal Ideation: None Homicidal Ideation: None Insight/Judgement: Good Sleep: Well Appetite: Good Muscle strength/Tone: Normal Gait/Station: Deferred Additional Comments: this is a female met in Er, with one to one today. took 2 tabs of gapapentin 600 last pm instaed of 1. no suicidal ideation or intent. plan to discharge patient to own home, has supportive dfaughter. attends [facility]. Has therapist and psych there (alfredito and claudia). Client in touch with counter caser oliver grayson at [phone]. dx. anxiety and depression. plan. may dc home, with family.
--- NOTE | 2019-05-01 19:28 | PDOC ---
*Physical Exam - Vital Signs Last Vital Signs Temp Pulse Resp BP Pulse Ox 98.1 F 102 H 18 118/59 L 99 05/01/19 17:41 05/01/19 17:41 05/01/19 17:41 05/01/19 17:41 05/01/19 17:41 - Physical Exam Comments: 05/01/19 19:26 gen: [id number], nad psych: denies si, hi, sitting up smiling ED Treatment Course - LABORATORY CBC & Chemistry Diagram: 05/01/19 06:30 05/01/19 06:30 - ADDITIONAL ORDERS Additional order review: Laboratory Results 05/01/19 05/01/19 05/01/19 06:36 06:30 06:30 Sodium Potassium Chloride Carbon Dioxide Anion Gap BUN Creatinine Est GFR (CKD-EPI)AfAm Est GFR (CKD-EPI)NonAf Random Glucose Calcium Total Bilirubin AST ALT Alkaline Phosphatase Creatine Kinase 108 Troponin I < 0.02 Total Protein Albumin Urine Color Yellow Urine Appearance Clear Urine pH 6.0 D Ur Specific [place] 1.019 Urine Protein Negative Urine Glucose (UA) 3+ H Urine Ketones Negative Urine Blood 3+ H Urine Nitrite Negative Urine Bilirubin Negative Urine Urobilinogen 0.2 Ur Leukocyte Esterase 1+ H Urine WBC (Auto) 5 Urine RBC (Auto) 130 Urine Casts (Auto) 1 U Epithel Cells (Auto) 2.7 Urine Bacteria (Auto) 17.8 Urine HCG, Qual Negative Salicylates Acetaminophen Alcohol, Quantitative 05/01/19 05/01/19 06:30 06:30 Sodium 138 Potassium 3.9 Chloride 104 Carbon Dioxide 27 Anion Gap 8 BUN 10.9 Creatinine 1.0 Est GFR (CKD-EPI)AfAm 75.54 Est GFR (CKD-EPI)NonAf 65.18 Random Glucose 314 H Calcium 8.5 Total Bilirubin 0.2 AST 15 ALT 22 Alkaline Phosphatase 78 Creatine Kinase Troponin I Total Protein 7.2 Albumin 3.4 Urine Color Urine Appearance Urine pH Ur Specific [place] Urine Protein Urine Glucose (UA) Urine Ketones Urine Blood Urine Nitrite Urine Bilirubin Urine Urobilinogen Ur Leukocyte Esterase Urine WBC (Auto) Urine RBC (Auto) Urine Casts (Auto) U Epithel Cells (Auto) Urine Bacteria (Auto) Urine HCG, Qual Salicylates < 1.7 L Acetaminophen <2.0 Alcohol, Quantitative < 3.0 05/01/19 06:30 RBC 4.35 MCV 80.3 MCHC 32.8 RDW 14.2 MPV 9.9 Neutrophils % 55.2 Lymphocytes % 24.6 Monocytes % 6.2 Eosinophils % 13.3 H D Basophils % 0.7 - Medications Given in the ED: ED Medications Discontinued Medications Generic Name Dose Route Start Last Admin Trade Name Freq PRN Reason Stop Dose Admin Sodium Chloride 1,000 mls @ 1,000 mls/hr 05/01/19 06:18 05/01/19 06:59 Normal Saline - IV 05/01/19 07:17 1,000 mls/hr ASDIR STA Administration Insulin Human Regular 4 units 05/01/19 08:19 05/01/19 09:07 Novolin R Vial *For Ivpush Or Iv Drip Only* SQ 05/01/19 08:20 4 units ONCE ONE Administration Lidocaine 1 patch 05/01/19 13:15 05/01/19 13:18 Lidoderm Patch - TP 05/01/19 13:16 1 patch ONCE ONE Administration Medical Decision Making - Medical Decision Making 05/01/19 19:26 pt signed out pending psych eval. pt has been seen by Bashir Vazquez and has been cleared from a psych standpoint pt has been cleared from IM team and is stable for dc to home Discharge - Discharge Information Problems reviewed: Yes Clinical Impression/Diagnosis: Tachycardia, Hyperglycemia Overdose Qualifiers: Encounter type: initial encounter Injury intent: undetermined intent Qualified Code(s): T50.904A - Poisoning by unspecified drugs, medicaments and biological substances, undetermined, initial encounter Condition: Fair - Admission No - Follow up/Referral Referrals: Damaris Solis MD [Primary Care Provider] - - Patient Discharge Instructions Patient Printed Discharge Instructions: DI for Drug Overdose in Adults Additional Instructions: Please call your psychiatrist and your therapist to arrange for follow up. Please call your pmd to arrange for follow up. Please return to the ED with any further concerns or complaints. - Post Discharge Activity
--- NOTE | 2019-05-01 19:41 | PDOC ---
Attending Attestation - Resident Resident Name: Mouna Avina - ED Attending Attestation I have performed the following: I have examined & evaluated the patient, The case was reviewed & discussed with the resident, I agree w/resident's findings & plan - HPI HPI: 05/01/19 19:41 see resident hpi - Physicial Exam PE: 05/01/19 19:41 agree with resident exam - Medical Decision Making 05/01/19 19:41 53-year-old female status post ingestion of multiple medications and attempts to "sleep". Patient does have a psychiatric history and there is concern for suicide attempt. Case signed out to dayshift with labs pending, patient will require 24-hour observation at minimum and psychiatric evaluation
[2019-05-01 20:30] VITALS: BP 146/75; PULSE 98
[2019-05-01] MEDS ORDERED: LIDOCAINE PATCH REMOVAL MC SCH (22:00)
[2019-05-01] MEDS ORDERED: CEPHALEXIN MONOHYDRATE 500 MG CAPSULE (UD) PO SCH (22:00)
== END 2019-05-01 21:03 | disposition home or self-care (01) ==
LOC: JER 05:40 → UNDOADMOB 08:58 → INTOOBSV 08:58 → JERBED 08:58 → UNDOADMOB 09:14 → JER 21:03
PROC: 3E013VG Introduction of Insulin into Subcutaneous Tissue, Percutaneous Approach (ICD-10-PCS; principal; 2019-05-01)
PROC: 3E0337Z Introduction of Electrolytic and Water Balance Substance into Peripheral Vein, Percutaneous Approach (ICD-10-PCS; 2019-05-01)
DX: T50.904A Poisoning by unspecified drugs, medicaments and biological substances, undetermined, initial encounter (principal); E11.65 Type 2 diabetes mellitus with hyperglycemia; R00.0 Tachycardia, unspecified; I10 Essential (primary) hypertension; J44.9 Chronic obstructive pulmonary disease, unspecified; B19.20 Unspecified viral hepatitis C without hepatic coma; M62.81 Muscle weakness (generalized)
CPT/HCPCS: 36415; 71045-TC-FY; 80053; 80307; 81003; 82550; 84484; 84703; 85025; 93005; 93010; 96361; 96372; 99285-25; J7030

== ENCOUNTER 2019-05-24 14:00 | Emergency (ER) | payer OTHER ==
[2019-05-24 14:16] VITALS: TEMP 97.8; BMI 48.0
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
[2019-05-24 15:33] LABS: BASO % 0.5 % (0-2.0); EOS % 3.1 % (0-4.5); LYMPH % 22.1 % (8-40); MCH 26.1 pg (25.7-33.7); MCHC 31.7 g/dl (32.0-36.0); MEAN CELL VOLUME 82.2 fl (80-96); MONO % 5.4 % (3.8-10.2); NEUT % 68.9 % (42.8-82.8); PLATELET COUNT 203 K/MM3 (134-434); RBC 4.98 M/mm3 (3.60-5.2); RDW 14.6 % (11.6-15.6); WHITE BLOOD COUNT 10.4 K/mm3 (4.0-10.0)
[2019-05-24] MEDS ORDERED: morphine CARPU-JECT 4 MG/1 ML DISP.SYRIN IVPUSH ONE (16:23)
[2019-05-24] MEDS ORDERED: morphine SULFATE 4 MG/ML VIAL ONE (16:35)
[2019-05-24 16:38] LABS: ALBUMIN 3.4 g/dl (3.4-5.0); ALK PHOS 79 U/L (45-117); ANION GAP 9 MMOL/L (8-16); BILIRUBIN,TOTAL 0.2 mg/dL (0.2-1); BLOOD UREA NITROGEN 15.4 mg/dL (7-18); CALCIUM 9.3 mg/dL (8.5-10.1); CHLORIDE 105 mmol/L (98-107); CO2 24 mmol/L (21-32); CREATININE 0.9 mg/dL (0.55-1.3); GLUCOSE,RANDOM 204 mg/dL (74-106); LIPASE 131 U/L (73-393); POTASSIUM 4.3 mmol/L (3.5-5.1); SGOT/AST 17 U/L (15-37); SGPT/ALT 21 U/L (13-61); SODIUM 138 mmol/L (136-145)
[2019-05-24 22:41] VITALS: BP 115/64; PULSE 91
--- NOTE | 2019-05-25 08:32 | EKG ---
Test Reason : Blood Pressure : / mmHG Vent. Rate : 093 BPM Atrial Rate : 093 BPM P-R Int : 154 ms QRS Dur : 090 ms QT Int : 364 ms P-R-T Axes : 047 -34 026 degrees QTc Int : 452 ms NORMAL SINUS RHYTHM LEFT AXIS DEVIATION MODERATE VOLTAGE CRITERIA FOR LVH, MAY BE NORMAL VARIANT ABNORMAL ECG WHEN COMPARED WITH ECG OF 01-MAY-2019 05:55, NO SIGNIFICANT CHANGE WAS FOUND Confirmed by ARNALDO MENDOZA, ANA LUISA ([id number]) on 05/25/2019 8:32:36 AM Referred By: Confirmed By:ANA LUISA MCINTOSH MD
--- NOTE | 2019-05-27 15:51 | EKG ---
Test Reason : Blood Pressure : / mmHG Vent. Rate : 096 BPM Atrial Rate : 096 BPM P-R Int : 144 ms QRS Dur : 086 ms QT Int : 368 ms P-R-T Axes : 052 -34 037 degrees QTc Int : 464 ms NORMAL SINUS RHYTHM LEFT AXIS DEVIATION MINIMAL VOLTAGE CRITERIA FOR LVH, MAY BE NORMAL VARIANT ABNORMAL ECG WHEN COMPARED WITH ECG OF 24-MAY-2019 14:13, NO SIGNIFICANT CHANGE WAS FOUND Confirmed by JEROME MENDOZA, JU ([id number]) on 05/27/2019 3:51:10 PM Referred By: Confirmed By:JU CANO MD
== END 2019-05-24 22:42 | disposition home or self-care (01) ==
LOC: JER 14:00
PROC: 3E033NZ Introduction of Analgesics, Hypnotics, Sedatives into Peripheral Vein, Percutaneous Approach (ICD-10-PCS; principal; 2019-05-24)
DX: R10.13 Epigastric pain (principal); V03.19XA Pedestrian with other conveyance injured in collision with car, pick-up truck or van in traffic accident, initial encounter; Y92.414 Local residential or business street as the place of occurrence of the external cause; Y93.89 Activity, other specified; I10 Essential (primary) hypertension; Y99.8 Other external cause status; E11.9 Type 2 diabetes mellitus without complications; D64.9 Anemia, unspecified; J44.9 Chronic obstructive pulmonary disease, unspecified; J45.998 Other asthma; F41.9 Anxiety disorder, unspecified; F31.9 Bipolar disorder, unspecified; M10.9 Gout, unspecified; I69.854 Hemiplegia and hemiparesis following other cerebrovascular disease affecting left non-dominant side; E66.01 Morbid (severe) obesity due to excess calories; Z68.41 Body mass index [BMI] 40.0-44.9, adult; E78.00 Pure hypercholesterolemia, unspecified; E03.9 Hypothyroidism, unspecified; G40.909 Epilepsy, unspecified, not intractable, without status epilepticus; Z88.1 Allergy status to other antibiotic agents; Z91.041 Radiographic dye allergy status; Z87.891 Personal history of nicotine dependence
CPT/HCPCS: 36415; 71045-TC-FY; 72125-TC; 74176-TC; 80053; 82550; 83690; 84484; 84703; 85025; 93005; 93010; 96374; 99283-25; Q9967

== ENCOUNTER 2019-05-28 10:20 | Emergency (ER) | payer OTHER ==
[2019-05-28 10:32] VITALS: TEMP 98; BMI 47.6
--- NOTE | 2019-05-28 11:06 | EKG ---
Test Reason : Blood Pressure : / mmHG Vent. Rate : 110 BPM Atrial Rate : 110 BPM P-R Int : 140 ms QRS Dur : 094 ms QT Int : 362 ms P-R-T Axes : 055 -31 046 degrees QTc Int : 489 ms POOR DATA QUALITY, INTERPRETATION MAY BE ADVERSELY AFFECTED SINUS TACHYCARDIA LEFT AXIS DEVIATION MINIMAL VOLTAGE CRITERIA FOR LVH, MAY BE NORMAL VARIANT ABNORMAL ECG WHEN COMPARED WITH ECG OF 24-MAY-2019 16:27, NO SIGNIFICANT CHANGE WAS FOUND Confirmed by Floyd Peacock MD ([id number]) on 05/28/2019 11:06:21 AM Referred By: Confirmed By:Floyd Peacock MD
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
[2019-05-28] MEDS ORDERED: ALBUTEROL SO4 2.5/IPRATROPIUM 0.5 INH SOL 3 ML VIAL.NEB. NEB ONE ×2 (11:26→11:47)
[2019-05-28] MEDS ORDERED: ACETAMINOPHEN 1000 MG/100 ML VIAL (NON FORMULARY) IVPB ONE (11:44)
[2019-05-28 12:15] LABS: VENOUS PC02 41.3 mmHg (38-52); VENOUS PH 7.37 (7.31-7.41); VENOUS PO2 60.4 mmHg (28-48)
[2019-05-28 12:18] LABS: HEMATOCRIT 35.6 % (32.4-45.2); HEMOGLOBIN 11.5 GM/dL (10.7-15.3); MCH 25.8 pg (25.7-33.7); MCHC 32.3 g/dl (32.0-36.0); MEAN CELL VOLUME 79.9 fl (80-96); MEAN PLT VOLUME 9.1 fl (7.5-11.1); PLATELET COUNT 194 K/MM3 (134-434); RBC 4.45 M/mm3 (3.60-5.2); RDW 14.3 % (11.6-15.6); WHITE BLOOD COUNT 9.4 K/mm3 (4.0-10.0)
[2019-05-28 12:47] LABS: ALBUMIN 3.4 g/dl (3.4-5.0); ALK PHOS 71 U/L (45-117); ANION GAP 10 MMOL/L (8-16); BILIRUBIN,TOTAL 0.2 mg/dL (0.2-1); BLOOD UREA NITROGEN 9.1 mg/dL (7-18); CALCIUM 9.1 mg/dL (8.5-10.1); CHLORIDE 102 mmol/L (98-107); CO2 25 mmol/L (21-32); GLUCOSE,RANDOM 292 mg/dL (74-106); LIPASE 109 U/L (73-393); N-TERMINAL BNP 36.3 pg/ml (5-125); SGOT/AST 12 U/L (15-37); SGPT/ALT 22 U/L (13-61); SODIUM 137 mmol/L (136-145); TOT PROT 7.1 g/dl (6.4-8.2)
--- NOTE | 2019-05-28 13:05 | PDOC ---
Attending Attestation - Resident Resident Name: Sahara Mccoy - ED Attending Attestation I have performed the following: I have examined & evaluated the patient, The case was reviewed & discussed with the resident, I agree w/resident's findings & plan, Exceptions are as noted - HPI HPI: 05/28/19 16:06 53 years old with past medical history significant for hypertension hyperlipidemia insulin-dependent diabetes CHF CVA with residual weakness COPD chronic pain presents to the ED with shortness of breath felt similar to her COPD tried taking prednisone and nebulizer with no significant improvement came to the emergency department felt some chest tightness Symptoms are mild to moderate persistent constant not exertional no exacerbating or alleviating factors. Insert my ROS statement - Physicial Exam PE: 05/28/19 16:06 Vitals: Triage Vital signs reviewed General Appearance: No acute distress, well nourished well developed, Head: Atraumatic, Neck: Supple; no Nucal rigidity Chest Wall: Nontender Cardiac: Slightly tachycardic after nebulizer treatments lungs: Clear to auscultation bilateral, good air movement bilaterally, Abdomen: Soft, non distended, normal bowel sounds, non tender to palpation Extremities: Full range of motion to all extremities, no cyanosis, clubbing, or edema Skin: Warm and dry, no rashes or lesions, no rash, no petechiae Psych: Normal mood, normal affect - Medical Decision Making 05/28/19 16:07 Well-appearing no apparent distress status post nebs and steroids and Ativan patient feels much better Dopplers negative for DVT patient's d-dimer was 513 which is not elevated based on patient's age-adjusted score Low suspicion for PE Discussed with patient risks and benefits of CTA patient feels much better right now does not want a CTA she feels comfortable going home She has a nonischemic EKG her troponin is negative x2 she will follow-up with her primary care provider this week Findings, the need for follow-up and strict return instructions discussed with patient. Heart Score/ECG Review - ECG Impressions Comment:: 05/28/19 16:07 Sinus tachycardia 121 left axis deviation no ST elevations or T wave inversions
[2019-05-28] MEDS ORDERED: MAGNESIUM SULF 50% (8.12 MEQ/2 ML-1 GM VIAL) IVPB ONE (13:08)
[2019-05-28] MEDS ORDERED: LORazepam 2 MG/ML SDV VIAL ONE (13:18)
[2019-05-28] MEDS ORDERED: ACETAMINOPHEN INJECTION 100 ML IVPB ONE (13:18)
[2019-05-28] MEDS ORDERED: MAGNESIUM 1GM/D5W - 2 GM/200 ML IVPB IVPB ONE (13:18)
[2019-05-28 13:25] VITALS: PULSE 125
[2019-05-28] MEDS ORDERED: INSULIN REGULAR HUMAN 100 UNITS/ML *VIAL IVPUSH ONE (14:53)
[2019-05-28 15:36] LABS: EPI CELLS 3.5 /HPF (0-5/HPF); HYALINE CASTS 1 /lpf (0-8); URINE APPEARANCE CLOUDY; URINE BACTERIA 726.1 /hpf (NEGATIVE); URINE BILIRUBIN NEGATIVE (NEGATIVE); URINE COLOR YELLOW; URINE GLUCOSE (UA) 3+ (NEGATIVE); URINE KETONE NEGATIVE (NEGATIVE); URINE LEUK ESTERASE 2+ (NEGATIVE); URINE NITRITE NEGATIVE (NEGATIVE); URINE PROTEIN NEGATIVE (NEGATIVE); URINE RBC 2 /hpf (0-4); URINE UROBILINOGEN 0.2 mg/dL (0.2-1.0); URINE WBC 42 /hpf (0-5)
[2019-05-28 16:42] VITALS: BP 110/69
--- NOTE | 2019-05-29 12:11 | EKG ---
Test Reason : Blood Pressure : / mmHG Vent. Rate : 121 BPM Atrial Rate : 121 BPM P-R Int : 152 ms QRS Dur : 086 ms QT Int : 340 ms P-R-T Axes : 063 -36 029 degrees QTc Int : 482 ms SINUS TACHYCARDIA LEFT AXIS DEVIATION MINIMAL VOLTAGE CRITERIA FOR LVH, MAY BE NORMAL VARIANT ABNORMAL ECG WHEN COMPARED WITH ECG OF 28-MAY-2019 10:29, NO SIGNIFICANT CHANGE WAS FOUND Confirmed by ARNALDO MENDOZA, ANA LUISA ([id number]) on 05/29/2019 12:11:18 PM Referred By: Confirmed By:ANA LUISA MCINTOSH MD
== END 2019-05-28 16:43 | disposition home or self-care (01) ==
LOC: JER 10:20 → JERFT 10:20 → JER 16:43
PROC: 3E0F7GC Introduction of Other Therapeutic Substance into Respiratory Tract, Via Natural or Artificial Opening (ICD-10-PCS; principal; 2019-05-28)
PROC: 3E033NZ Introduction of Analgesics, Hypnotics, Sedatives into Peripheral Vein, Percutaneous Approach (ICD-10-PCS; 2019-05-28)
PROC: 3E033GC Introduction of Other Therapeutic Substance into Peripheral Vein, Percutaneous Approach (ICD-10-PCS; 2019-05-28)
PROC: 3E033VG Introduction of Insulin into Peripheral Vein, Percutaneous Approach (ICD-10-PCS; 2019-05-28)
PROC: 3E033NZ Introduction of Analgesics, Hypnotics, Sedatives into Peripheral Vein, Percutaneous Approach (ICD-10-PCS; 2019-05-28)
DX: N39.0 Urinary tract infection, site not specified (principal); R07.9 Chest pain, unspecified; E83.42 Hypomagnesemia; E11.65 Type 2 diabetes mellitus with hyperglycemia; I11.0 Hypertensive heart disease with heart failure; Z79.4 Long term (current) use of insulin; I50.9 Heart failure, unspecified; I69.854 Hemiplegia and hemiparesis following other cerebrovascular disease affecting left non-dominant side; E78.5 Hyperlipidemia, unspecified; G40.909 Epilepsy, unspecified, not intractable, without status epilepticus; F31.9 Bipolar disorder, unspecified; K21.9 Gastro-esophageal reflux disease without esophagitis; M19.90 Unspecified osteoarthritis, unspecified site; E03.9 Hypothyroidism, unspecified; J44.9 Chronic obstructive pulmonary disease, unspecified; J45.998 Other asthma; M71.21 Synovial cyst of popliteal space [Baker], right knee; Z91.041 Radiographic dye allergy status; Z88.1 Allergy status to other antibiotic agents; Z87.891 Personal history of nicotine dependence
CPT/HCPCS: 36415; 71046-TC-FY; 80053; 81003; 82803; 82962; 83690; 83735; 83880; 84484; 85027; 85379; 87086; 93005; 93010; 93970-TC; 94640; 96374; 96375; 99284-25; J0131

== ENCOUNTER 2019-09-05 10:06 | Emergency (ER) | payer OTHER ==
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
[2019-09-05 10:37] VITALS: BP 113/65; PULSE 82; TEMP 97.2; BMI 47.6
[2019-09-05] MEDS ORDERED: ACETAMINOPHEN 1000 MG/100 ML VIAL (NON FORMULARY) IVPB ONE (11:10)
[2019-09-05] MEDS ORDERED: METOCLOPRAMIDE HCL INJECTION 10 MG/2 ML VIAL IVPB ONE (11:10)
[2019-09-05] MEDS ORDERED: SODIUM CHLORIDE 0.9% 500 ML INFUS.BAG IV ONE (11:10)
[2019-09-05] MEDS ORDERED: METOCLOPRAMIDE HCL INJECTION 10 MG/2 ML VIAL ONE (11:23)
[2019-09-05] MEDS ORDERED: lamoTRIgine 25 MG TABLET PO ONE (11:24)
[2019-09-05] MEDS ORDERED: lamoTRIgine 25 MG TABLET ONE (11:24)
[2019-09-05] MEDS ORDERED: ACETAMINOPHEN INJECTION 100 ML IVPB ONE (11:24)
[2019-09-05 11:37] LABS: EOS % 11.3 % (0-4.5); HEMATOCRIT 35.4 % (32.4-45.2); HEMOGLOBIN 11.6 GM/dL (10.7-15.3); LYMPH % 22.2 % (8-40); MCH 26.5 pg (25.7-33.7); MCHC 32.7 g/dl (32.0-36.0); MEAN CELL VOLUME 80.9 fl (80-96); MEAN PLT VOLUME 9.3 fl (7.5-11.1); MONO % 6.4 % (3.8-10.2); NEUT % 59.1 % (42.8-82.8); PLATELET COUNT 230 K/MM3 (134-434); RBC 4.38 M/mm3 (3.60-5.2); RDW 13.9 % (11.6-15.6); WHITE BLOOD COUNT 7.3 K/mm3 (4.0-10.0)
[2019-09-05 12:14] LABS: ALBUMIN 3.5 g/dl (3.4-5.0); ALK PHOS 76 U/L (45-117); ANION GAP 7 MMOL/L (8-16); BILIRUBIN,TOTAL 0.2 mg/dL (0.2-1); CALCIUM 8.7 mg/dL (8.5-10.1); CHLORIDE 103 mmol/L (98-107); CO2 29 mmol/L (21-32); CREATININE 0.8 mg/dL (0.55-1.3); GLUCOSE,RANDOM 225 mg/dL (74-106); POTASSIUM 4.6 mmol/L (3.5-5.1); SGOT/AST 16 U/L (15-37); SGPT/ALT 20 U/L (13-61); SODIUM 138 mmol/L (136-145); TOT PROT 7.1 g/dl (6.4-8.2)
--- NOTE | 2019-09-05 14:01 | PDOC ---
Attending Attestation - Resident Resident Name: DrewMatthew - ED Attending Attestation I have performed the following: I have examined & evaluated the patient, The case was reviewed & discussed with the resident, I agree w/resident's findings & plan - HPI HPI: 09/05/19 13:57 54-year-old female with history of diabetes and seizures (treated with Lamictal but noncompliant for the last 2 days because she lost her meds) presents now brought in by home health aide after witnessed seizure x2. Patient was in her usual state of good health, had seizure within 5 minutes of the home health aides arrival, aide entered the house and found her on the ground alert but slightly postictal. Aide witnessed another seizure followed by brief postictal period, patient now at baseline. Patient has no other complaints whatsoever, denies any chest pain or palpitations, denies any recent vomiting or diarrhea, no fevers or chills, no neurological complaints, no injuries with the seizure. - Physicial Exam PE: 09/05/19 13:58 Vital signs normal Seated in stretcher in no acute distress, wanting to go home, has no acute complaints Trauma exam is unremarkable Pupils are equal reactive to light, extraocular movements are intact Heart is regular without murmur, lungs are clear Abdomen benign Neurologically intact - Medical Decision Making 09/05/19 13:58 54-year-old female with history of seizures presents with seizure x2 in the setting of known noncompliance with medication secondary to loss of prescription bottle. Less suspicious for syncope or cardiac process, patient has no complaints and no findings on examination. Hemodynamically stable and afebrile, neurologically intact. No evidence of status epilepticus, no evidence for acute ACS. CT head pending Patient tolerating p.o., ambulating in the ED, requesting discharge. Recommended admission for possible syncope, patient wants to go home. Will send a new Lamictal prescription, strict return precautions. Pt had normal echo 04/17, has f/u with her PCP on 09/10. DROSS PULLER at bedside, understands return criteria Heart Score/ECG Review #1 ECG reviewed & interpreted by me at: 13:02 General ECG Interpretation: Sinus Rhythm, Normal Rate (80), Normal Intervals (qtc 468), No acute ischemic changes Compared to previous ECG there are: No significant change
--- NOTE | 2019-09-05 14:25 | EKG ---
Test Reason : Blood Pressure : / mmHG Vent. Rate : 080 BPM Atrial Rate : 080 BPM P-R Int : 154 ms QRS Dur : 086 ms QT Int : 406 ms P-R-T Axes : 053 -21 012 degrees QTc Int : 468 ms NORMAL SINUS RHYTHM CANNOT RULE OUT ANTERIOR INFARCT , AGE UNDETERMINED ABNORMAL ECG WHEN COMPARED WITH ECG OF 28-MAY-2019 14:11, VENT. RATE HAS DECREASED BY 41 BPM Confirmed by LUCIE MENDOZA, LESLI ([id number]) on 09/05/2019 2:25:31 PM Referred By: Confirmed By:LESLI FAULKNER MD
[2019-09-06] MEDS ORDERED: lamoTRIgine 25 MG TABLET PO ONE (11:11)
== END 2019-09-05 14:07 | disposition home or self-care (01) ==
LOC: JER 10:06
PROC: 3E033NZ Introduction of Analgesics, Hypnotics, Sedatives into Peripheral Vein, Percutaneous Approach (ICD-10-PCS; principal; 2019-09-05)
PROC: 3E033GC Introduction of Other Therapeutic Substance into Peripheral Vein, Percutaneous Approach (ICD-10-PCS; 2019-09-05)
DX: R55 Syncope and collapse (principal); Z88.8 Allergy status to other drugs, medicaments and biological substances; Z91.041 Radiographic dye allergy status; I10 Essential (primary) hypertension; E78.5 Hyperlipidemia, unspecified; E11.9 Type 2 diabetes mellitus without complications; I25.10 Atherosclerotic heart disease of native coronary artery without angina pectoris; K21.9 Gastro-esophageal reflux disease without esophagitis; F31.89 Other bipolar disorder; B19.20 Unspecified viral hepatitis C without hepatic coma; Z87.891 Personal history of nicotine dependence
CPT/HCPCS: 36415; 70450-TC; 71045-TC-FY; 80053; 82550; 84484; 85025; 93005; 93010; 99284-25; J0131

== ENCOUNTER 2020-02-04 09:47 | Emergency (ER) | payer OTHER ==
[2020-02-04 09:54] VITALS: BP 130/70; PULSE 102; TEMP 98.6; BMI 41.5
--- NOTE | 2020-02-04 09:54 | PDOC ---
Rapid Medical Evaluation Time Seen by Provider: 02/04/20 09:51 Medical Evaluation: Allergies Allergy/AdvReac Type Severity Reaction Status Date / Time Iodinated Contrast Media Allergy Intermediate Itching Verified 01/15/20 11:18 [Iodinated Contrast Media - IV Dye] azithromycin AdvReac Intermediate Itching Verified 01/15/20 11:18 02/04/20 09:51 cc: ITCHY RASH TO ARMS AND ABD, took vistaril and DPH with min improvement, states started AC injections for DVT 3 weeks ago Exam: noted erythematous papular rash to arms Plan: FT Discharge Disposition - Diagnosis Rash - Referrals - Patient Instructions - Post Discharge Activity
[2020-02-04] MEDS ORDERED: FAMOTIDINE 20 MG TABLET PO ONE (10:20)
[2020-02-04] MEDS ORDERED: DEXAMETHASONE SOD PHOSPHATE 10 MG/1 ML VIAL IM ONE (10:20)
[2020-02-04] MEDS ORDERED: DEXAMETHASONE SOD PHOSPHATE 10 MG/1 ML VIAL ONE (10:24)
[2020-02-04] MEDS ORDERED: FAMOTIDINE 20 MG TABLET ONE ×2 (10:24→10:31)
--- NOTE | 2020-02-04 10:26 | PDOC ---
History of Present Illness - General Chief Complaint: Allergic Reaction Stated Complaint: RASH Time Seen by Provider: 02/04/20 09:51 History Source: Patient Exam Limitations: Clinical Condition - History of Present Illness Initial Comments: 02/04/20 10:22 Patient with past medical history of recently diagnosed DVT started on IM Lovenox presented with complaint of one-week history of whole body rash and itching which started after using Lovenox injection. Patient reports rash started mild hives on the arms which spread throughout the body. Described as is very itchy. Patient was seen in primary care's office in [facility] 3 days ago for symptoms and was advised to take Vistaril and calamine lotion which has not been improving her symptoms. Denies shortness of breath, choking sensation, tongue or lip swelling or difficulty breathing. Denies any other symptoms Is this a multiple visit Asthma Patient?: No Timing/Duration: 1 week Past History - Medical History Allergies/Adverse Reactions: Allergies Allergy/AdvReac Type Severity Reaction Status Date / Time Iodinated Contrast Media Allergy Intermediate Itching Verified 01/15/20 11:18 [Iodinated Contrast Media - IV Dye] azithromycin AdvReac Intermediate Itching Verified 01/15/20 11:18 Home Medications: Ambulatory Orders Fluoxetine HCl [Prozac -] 40 mg PO AM 09/15/14 Albuterol Sulfate Inhaler - [Ventolin HFA Inhaler -] 1 - 2 inh PO QID PRN 02/28 01/13 clonazePAM [Klonopin -] 0.5 mg PO TID PRN 05/12/17 Atorvastatin Ca [Lipitor] 20 mg PO HS 09/09/17 Loratadine [Claritin] 10 mg PO DAILY PRN 09/11/17 Albuterol 2.5/Ipratropium 0.5 [Duoneb -] 1 amp NEB RQID #120 amp 10/31/17 Furosemide [Lasix -] 40 mg PO DAILY 04/06/18 Gabapentin [Neurontin] 600 mg PO TID 08/02/18 Lisinopril [Prinivil] 20 mg PO BID 09/28/18 Omeprazole 40 mg PO DAILY 02/21/19 Zolpidem Tartrate [Ambien] 10 mg PO HS PRN 02/21/19 Pramipexole Di-HCl [Mirapex] 1 mg PO HS 05/01/19 Albuterol 0.083% Nebulizer Shaina [Ventolin 0.083% Nebulizer Soln -] 1 neb NEB Q4H PRN #30 vial 05/28/19 Lamotrigine [Lamictal -] 75 mg PO BID 09/05/19 Ergocalciferol (Vitamin D2) [Vitamin D2] 50,000 unit PO Q7D #5 capsule 12/06/19 Hydrocodone/Acetaminophen [[place] 10-325 Tablet] 1 each PO TID PRN #70 tablet MDD 3 01/03/20 Aspirin 81 mg PO DAILY 01/16/20 Cyanocobalamin Vit B-12 Inj. [Vitamin B12 Injection -] 1,000 mcg IJ WEEKLY 01/16/20 Fluticasone Propionate [Flovent Hfa] 2 puff IH BID 01/16/20 Insulin Glargine,Hum.rec.anlog [Basaglar Kwikpen U-100] 45 unit SQ DAILY 01/16/20 Insulin Lispro [Humalog] 15 - 35 unit SQ ACHS 01/16/20 Meloxicam 15 mg PO DAILY 01/16/20 Sitagliptin Phos/Metformin HCl [Janumet Xr 50-1,000 mg Tablet] 1 tab PO BID 01/16/20 Sumatriptan Succinate [Imitrex -] 25 mg PO PRN PRN 01/16/20 Umeclidinium [place] [Incruse Ellipta] 1 puff IH DAILY 01/16/20 Famotidine [Pepcid -] 20 mg PO BID 5 Days #10 tablet 02/04/20 Rivaroxaban [Xarelto] 15 mg PO BID 21 Days #42 tab 02/04/20 predniSONE [Deltasone -] 20 mg PO BID 5 Days #10 tablet 02/04/20 Asthma: Yes Cardiac Disorders: No 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) COPD: Yes (on inhalers) CHF: No Dementia: No Diabetes: Yes GI Disorders: No Disorders: No HTN: Yes Hypercholesterolemia: Yes Liver Disease: Yes (hep C - treated) Psychiatric Problems: Yes Seizures: Yes Thyroid Disease: Yes (hypothyroid) Other medical history: DVT, - Surgical History Abdominal Surgery: Yes (UMBILICAL HERNIA) - Immunization History Immunization Up to Date: Yes - Psycho-Social/Smoking History Smoking History: Unknown if ever smoked Have you smoked in the past 12 months: No If you are a former smoker, when did you quit?: 2012 Information on smoking cessation initiated: No 'Breaking Loose' booklet given: 09/16/14 - Substance Abuse Hx (Audit-C & DAST Scrn) How often the patient has a drink containing alcohol: Never Score: In Men: 4 or > Positive; In Women: 3 or > Positive: 0 Screen Result (Pos requires Nsg. Audit-10AR): Negative In the last yr the pt used illegal drug/Rx for NonMed reason: No Score: Yes response is considered Positive: 0 Screen Result (Positive result requires Nsg. DAST-10): Negative Review of Systems - Review of Systems Able to Perform ROS?: Yes Is the patient limited Macedonian proficient: No Constitutional: No: Chills, Fever, Malaise HEENTM: No: Symptoms Reported, See HPI, Eye Pain, Blurred Vision, Tearing, Recent change in vision, Double Vision, Cataracts, Ear Pain, Ocular Prothesis, Ear Discharge, Nose Pain, Nose Congestion, Tinnitus, Nose Bleeding, Hearing Loss, Throat Pain, Throat Swelling, Mouth Pain, Dental Problems, Difficulty Swallowing, Mouth Swelling, Other Respiratory: No: Symptoms reported, See HPI, Cough, Orthopnea, Shortness of Breath, SOB with Exertion, SOB at Rest, Stridor, Wheezing, Productive cough, Hemoptysis, Other Cardiac (ROS): No: Symptoms Reported, See HPI, Chest Pain, Edema, Irregular Heart Rate, Lightheadedness, Palpitations, Syncope, Chest Tightness, Other ABD/GI: No: Symptoms Reported Musculoskeletal: No: Symptoms Reported Integumentary: Yes: Symptoms Reported, See HPI, Pruritus (b/l UE/LE and abdomen itchy rash), Rash Neurological: No: Symptoms reported, Numbness, Dizziness All Other Systems: Reviewed and Negative *Physical Exam - Vital Signs Last Vital Signs Temp Pulse Resp BP Pulse Ox 98.6 F 102 H 16 130/70 97 02/04/20 09:52 02/04/20 09:52 02/04/20 09:52 02/04/20 09:52 02/04/20 09:52 - Physical Exam 02/04/20 10:25 GENERAL: Well developed, well nourished. Awake and alert. No acute distress. HEENT: Normocephalic, atraumatic. PERRLA, EOMI. No conjunctival pallor. Sclera are non-icteric. Moist mucous membranes. Oropharynx is clear. NECK: Supple. Full ROM. CARDIOVASCULAR: Regular rate and rhythm. No murmurs, rubs, or gallops. Distal pulses are 2+ and symmetric. PULMONARY: No evidence of respiratory distress. Lungs clear to auscultation bilaterally. No wheezing, rales or rhonchi. MUSCULOSKELETAL Normal range of motion at all joints. SKIN: Warm and dry. Normal capillary refill. Diffuse erythematous urticarial rash globally to bilateral upper extremities, upper back, torso and lower extremities without excoriations. No open wounds. NEUROLOGICAL: Alert, awake, appropriate. Gait is normal without ataxia. PSYCHIATRIC: Cooperative. Good eye contact. Appropriate mood General Appearance: Yes: Nourished, Appropriately Dressed. No: Apparent Distress Medical Decision Making - Medical Decision Making 02/04/20 10:23 Patient with past medical history of recently diagnosed DVT started on IM Lovenox presented with complaint of one-week history of whole body rash and itching which started after using Lovenox injection. Patient reports rash started mild hives on the arms which spread throughout the body. Described as is very itchy. Patient was seen in primary care's office in [facility] 3 days ago for symptoms and was advised to take Vistaril and calamine lotion which has not been improving her symptoms. Denies shortness of breath, choking sensation, tongue or lip swelling or difficulty breathing. Denies any other symptoms Exam significant for diffuse erythematous urticarial rash globally. Oropharynx patent. No tongue or lip swelling. Patient in no acute distress. Symptoms likely allergic dermatitis. Will give Decadron 10 mg IM, 25 mg Benadryl IM and 40 Pepcid p.o. for allergic reaction. Will reassess after 20 minutes 02/04/20 11:00 Patient reported mild improvement in itching with meds. Spoke to Dr. Lim vascular specialist who started patient on Lovenox who agrees patient can be switched to Xarelto to prevent further allergic reaction. Patient was started on Xarelto 15 mg twice daily for 3 weeks and advised to follow-up with PCP before the 3 weeks to continue Xarelto which will be 20 mg daily after 3 weeks. Plan discussed with patient and patient agrees with plan. Patient stable for discharge on prednisone 40 mg for 5 days and Pepcid twice daily for 5 days with follow-up with PCP for continued management on anticoagulative therapy Discharge - Discharge Information Problems reviewed: Yes Clinical Impression/Diagnosis: Rash, Allergic dermatitis Condition: Stable Disposition: HOME - Admission No - Additional Discharge Information Prescriptions: predniSONE [Deltasone -] 20 mg PO BID 5 Days #10 tablet Famotidine [Pepcid -] 20 mg PO BID 5 Days #10 tablet Rivaroxaban [Xarelto] 15 mg PO BID 21 Days #42 tab - Follow up/Referral Referrals: Damaris Solis MD [Primary Care Provider] - Emeli Canada MD [Staff Physician] - - Patient Discharge Instructions Patient Printed Discharge Instructions: Rivaroxaban, DI for Adverse Drug Reaction -- Allergic Additional Instructions: Stop taking Lovenox injections as discussed and you will be switched to Xarelto which you take twice a day for 3 weeks. You need to follow-up with your primary care before that 3 weeks to continue the Xarelto. It is very important you follow-up with your primary care before that 3 weeks. Take prescribed medication as prescribed for allergic reaction. Follow-up referred dermatology Dr. Canada for rash - Post Discharge Activity
== END 2020-02-04 11:14 | disposition home or self-care (01) ==
LOC: JERFT 09:47
PROC: 3E023NZ Introduction of Analgesics, Hypnotics, Sedatives into Muscle, Percutaneous Approach (ICD-10-PCS; principal; 2020-02-04)
DX: R21 Rash and other nonspecific skin eruption (principal); L23.9 Allergic contact dermatitis, unspecified cause
CPT/HCPCS: 99285-25; J1100

== ENCOUNTER 2020-02-05 12:19 | Emergency (ER) | payer OTHER ==
[2020-02-05 12:26] VITALS: BP 122/67; PULSE 104; TEMP 98.1; BMI 41.5
--- NOTE | 2020-02-05 12:29 | PDOC ---
Rapid Medical Evaluation Chief Complaint: Rash Time Seen by Provider: 02/05/20 12:21 Medical Evaluation: Allergies Allergy/AdvReac Type Severity Reaction Status Date / Time enoxaparin [From Lovenox] Allergy Intermediate Rash Verified 02/05/20 12:17 Iodinated Contrast Media Allergy Intermediate Itching Verified 01/15/20 11:18 [Iodinated Contrast Media - IV Dye] azithromycin AdvReac Intermediate Itching Verified 01/15/20 11:18 02/05/20 12:24 I have performed a brief in-person evaluation of this patient. The patient presents with a chief complaint of: Here w/ generalized pruritic rash w/ ? sob. Pt was admitted here 01/17 for b/l DVT and PE and sent home with IM lovenox but returned to ER 2 days ago for pruritic rash and was taken off lovenox after ED commercial drafter d/w Dr Vick of vascular. Pt was sent home w/ benadryl and prednisone and started on xarelto but states she continues to have sxs despite continuing Benadryl and prednisone. Pt is morbidly obesed w/ multiple comorbidities including, DM, HLD, COPD, not on oxygen, asthma, CVA Pertinent physical exam findings:stable w/ diffuse erythematous macular rash I have ordered the following:nothing The patient will proceed to the ED for further evaluation Discharge Disposition - Diagnosis Rash - Referrals - Patient Instructions - Post Discharge Activity
[2020-02-05] MEDS ORDERED: diphenhydrAMINE HCL 25 MG CAPSULE (FP) PO ONE ×2 (14:02→14:37)
--- NOTE | 2020-02-05 14:02 | PDOC ---
History of Present Illness - General Chief Complaint: Rash Stated Complaint: RASH Time Seen by Provider: 02/05/20 12:21 History Source: Patient Exam Limitations: No Limitations - History of Present Illness Initial Comments: Pt is a 54 yo F, with PMH of HTN, HLD, DM, CHF, CVA, COPD, OA with chronic pain, bipolar disorder, and recently diagnosed b/l PE and DVTs (01/18/2020) who is presenting with complaints of pruritic rash, throat tightness and nausea this morning. denies any [fevers/chills, headache, vision changes, syncope, chest pain, palpitations, SOB, nausea/vomiting, abdominal pain, urinary symptoms, diarrhea/constipation, or leg swelling]. Allergies: NKDA PCP: Irma Pain Med: Isaac Pulm: Kavon Social: Pt denies any cigarette, alcohol, or drug use. Pt denies any recent travel or sick contacts. Surgical: no relevant history. Family: no relevant history. 02/05/20 14:04 Past History - Medical History Allergies/Adverse Reactions: Allergies Allergy/AdvReac Type Severity Reaction Status Date / Time enoxaparin [From Lovenox] Allergy Intermediate Rash Verified 02/05/20 12:26 Iodinated Contrast Media Allergy Intermediate Itching Verified 02/05/20 12:26 [Iodinated Contrast Media - IV Dye] azithromycin AdvReac Intermediate Itching Verified 02/05/20 12:26 Home Medications: Ambulatory Orders Fluoxetine HCl [Prozac -] 40 mg PO AM 09/15/14 Albuterol Sulfate Inhaler - [Ventolin HFA Inhaler -] 1 - 2 inh PO QID PRN 03/15/16 clonazePAM [Klonopin -] 0.5 mg PO TID PRN 05/12/17 Atorvastatin Ca [Lipitor] 20 mg PO HS 09/09/17 Loratadine [Claritin] 10 mg PO DAILY PRN 09/11/17 Albuterol 2.5/Ipratropium 0.5 [Duoneb -] 1 amp NEB RQID #120 amp 10/31/17 Furosemide [Lasix -] 40 mg PO DAILY 04/06/18 Gabapentin [Neurontin] 600 mg PO TID 08/02/18 Lisinopril [Prinivil] 20 mg PO BID 09/28/18 Omeprazole 40 mg PO DAILY 02/21/19 Zolpidem Tartrate [Ambien] 10 mg PO HS PRN 02/21/19 Pramipexole Di-HCl [Mirapex] 1 mg PO HS 05/01/19 Albuterol 0.083% Nebulizer Shaina [Ventolin 0.083% Nebulizer Soln -] 1 neb NEB Q4H PRN #30 vial 05/28/19 Lamotrigine [Lamictal -] 75 mg PO BID 09/05/19 Ergocalciferol (Vitamin D2) [Vitamin D2] 50,000 unit PO Q7D #5 capsule 12/06/19 Aspirin 81 mg PO DAILY 01/16/20 Cyanocobalamin Vit B-12 Inj. [Vitamin B12 Injection -] 1,000 mcg IJ WEEKLY 01/16/20 Fluticasone Propionate [Flovent Hfa] 2 puff IH BID 01/16/20 Insulin Glargine,Hum.rec.anlog [Basaglar Kwikpen U-100] 45 unit SQ DAILY 01/16/20 Insulin Lispro [Humalog] 15 - 35 unit SQ ACHS 01/16/20 Meloxicam 15 mg PO DAILY 01/16/20 Sitagliptin Phos/Metformin HCl [Janumet Xr 50-1,000 mg Tablet] 1 tab PO BID 01/16/20 Sumatriptan Succinate [Imitrex -] 25 mg PO PRN PRN 01/16/20 Umeclidinium [place] [Incruse Ellipta] 1 puff IH DAILY 01/16/20 Famotidine [Pepcid -] 20 mg PO BID 5 Days #10 tablet 02/04/20 Rivaroxaban [Xarelto] 15 mg PO BID 21 Days #42 tab 02/04/20 predniSONE [Deltasone -] 20 mg PO BID 5 Days #10 tablet 02/04/20 Dabigatran Etexilate Mesylate [Pradaxa -] 150 mg PO BID #30 capsule 02/05/20 Hydrocodone/Acetaminophen [[place] 10-325 Tablet] 1 each PO TID PRN #70 tablet MDD 3 02/05/20 Asthma: Yes Cardiac Disorders: No 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) COPD: Yes (on inhalers) CHF: No Dementia: No Diabetes: Yes GI Disorders: No Disorders: No HTN: Yes Hypercholesterolemia: Yes Liver Disease: Yes (hep C - treated) Psychiatric Problems: Yes Seizures: Yes Thyroid Disease: Yes (hypothyroid) - Surgical History Abdominal Surgery: Yes (UMBILICAL HERNIA) - Immunization History Immunization Up to Date: Yes - Psycho-Social/Smoking History Smoking History: Former smoker Have you smoked in the past 12 months: No If you are a former smoker, when did you quit?: 2012 Information on smoking cessation initiated: No 'Breaking Loose' booklet given: 09/16/14 - Substance Abuse Hx (Audit-C & DAST Scrn) How often the patient has a drink containing alcohol: Never Score: In Men: 4 or > Positive; In Women: 3 or > Positive: 0 Screen Result (Pos requires Nsg. Audit-10AR): Negative *Physical Exam - Vital Signs Last Vital Signs Temp Pulse Resp BP Pulse Ox 98.1 F 104 H 20 122/67 98 02/05/20 12:23 02/05/20 12:23 02/05/20 12:23 02/05/20 12:23 02/05/20 12:23 Discharge - Discharge Information Problems reviewed: Yes Clinical Impression/Diagnosis: Rash Allergic reaction Qualifiers: Encounter type: initial encounter Qualified Code(s): T78.40XA - Allergy, unspecified, initial encounter DVT (deep venous thrombosis) Qualifiers: DVT location: lower extremity Affected thrombotic vein of extremity: unspecified vein of extremity Chronicity: chronic Laterality: bilateral Qualified Code(s): I82.503 - Chronic embolism and thrombosis of unspecified deep veins of lower extremity, bilateral Condition: Improved Disposition: HOME - Admission No - Additional Discharge Information Prescriptions: Dabigatran Etexilate Mesylate [Pradaxa -] 150 mg PO BID #30 capsule - Follow up/Referral Referrals: Michelle Ken MD [Primary Care Provider] - - Patient Discharge Instructions - Post Discharge Activity
--- NOTE | 2020-02-05 14:05 | PDOC ---
Documentation entered by Truman Alvarado SCRIBE, acting as scribe for Cyrus Cisneros MD. Cyrus Cisneros MD: This documentation has been prepared by the Tiarra marte Nirvannie, SCRIBE, under my direction and personally reviewed by me in its entirety. I confirm that the documentation accurately reflects all work, treatment, procedures, and medical decision making performed by me. Attending Attestation - Resident Resident Name: LisaMartita - ED Attending Attestation I have performed the following: I have examined & evaluated the patient, The case was reviewed & discussed with the resident, I agree w/resident's findings & plan, Exceptions are as noted - HPI HPI: 02/05/20 14:12 The patient is a 54 year old female with a significant past medical history of hypertension, hyperlipidemia, insulin-dependent diabetes, congestive heart failure, prior CVA (with left sided residual weakness), COPD (no home O2), OA, chronic pain, epilepsy, bipolar disorder, gastroesophageal reflux who presents t o the emergency department with diffuse rash. Patient was evaluated by her pain doctor today at which time she made him aware that shortly after taking Xarelto her hives worsened (initially got better after medications she was d/c on yesterday). Patient was recently evaluated in the emergency department yesterday for hives at which time she was discharged home on Xarelto, Pepcid, and Prednisone. Allergies: Iodinated contrast Media, Azithromycin, Enoxaparin. Primary Care Physician: Damaris Solis FNP - Physicial Exam PE: 02/05/20 14:03 Patient is awake and alert, obese, in mild distress Normocephalic, atraumatic PERRLA, EOMI No JVD CTA RRR Extensive urticarial rash to upper extremities and anterior chest - Medical Decision Making 02/05/20 14:04 54-year-old female with multiple comorbidities, recently diagnosed with bilateral DVT/PE, initially treated with Lovenox and Xarelto presents with recurrent urticarial rash. I suspect allergic reaction due to cross-reactivity of Xarelto and Lovenox. Patient currently on prednisone, Pepcid and Benadryl. Will administer additional Benadryl. No airway issues. Will switch to Pradaxa. Discharge - Discharge Information Problems reviewed: Yes Clinical Impression/Diagnosis: Rash Allergic reaction Qualifiers: Encounter type: initial encounter Qualified Code(s): T78.40XA - Allergy, unspecified, initial encounter DVT (deep venous thrombosis) Qualifiers: DVT location: lower extremity Affected thrombotic vein of extremity: unspecified vein of extremity Chronicity: chronic Laterality: bilateral Qualified Code(s): I82.503 - Chronic embolism and thrombosis of unspecified deep veins of lower extremity, bilateral Condition: Improved Disposition: HOME - Additional Discharge Information Prescriptions: Dabigatran Etexilate Mesylate [Pradaxa -] 150 mg PO BID #30 capsule - Follow up/Referral Referrals: Michelle Ken MD [Primary Care Provider] - Damaris Solis MD [Nurse Practitioner] - - Patient Discharge Instructions Patient Printed Discharge Instructions: DI for General Allergic Reactions, Dabigatran Additional Instructions: You were seen in the ER today for an allergic reaction. Please follow-up with your primary care doctor within 1-2 days to discuss your visit and make sure your symptoms have improved. Please return to the ER if you have any worsening rash, trouble breathing, development of fevers or chills, loss of consciousness, inability to tolerate food or fluids, or any other concerns. I have sent medications to your pharmacy. Please take these medications as prescribed. - Post Discharge Activity
== END 2020-02-05 16:10 | disposition home or self-care (01) ==
LOC: JER 12:19
DX: T78.40XA Allergy, unspecified, initial encounter (principal); I82.503 Chronic embolism and thrombosis of unspecified deep veins of lower extremity, bilateral
CPT/HCPCS: 99283-25

== ENCOUNTER 2020-02-24 13:03 | Inpatient (IN) | payer OTHER ==
--- NOTE | 2020-02-24 13:53 | PDOC ---
History of Present Illness - General Chief Complaint: Pain Stated Complaint: ABD PAIN Time Seen by Provider: 02/24/20 13:17 - History of Present Illness Initial Comments: Pt is a 54 yo F, with PMH of HTN, HLD, DM, CVA, COPD, OA with chronic pain, bipolar disorder, and recently diagnosed b/l PE and DVTs (01/18/2020, currently on pradaxa 150 mg BID) presenting today with abdominal pain that started 1 week ago. Reports diffuse, sharp pain. No radiation. Reports vomiting NBNB x4 for the past 4 days. No diarrhea/blood in the stool. No chest pain/shortness of breath. No headache/dizziness. No back pain. No dysuria. No leg swelling. Reports lower extremity pain that is her baseline. Pt currently on her menstrual cycle. SurgHx: hernia repair, hysterectomy Past History - Medical History Allergies/Adverse Reactions: Allergies Allergy/AdvReac Type Severity Reaction Status Date / Time enoxaparin [From Lovenox] Allergy Intermediate Rash Verified 02/24/20 13:53 Iodinated Contrast Media Allergy Intermediate Itching Verified 02/24/20 13:53 [Iodinated Contrast Media - IV Dye] azithromycin AdvReac Intermediate Itching Verified 02/24/20 13:53 Home Medications: Ambulatory Orders Fluoxetine HCl [Prozac -] 40 mg PO AM 09/15/14 Albuterol Sulfate Inhaler - [Ventolin HFA Inhaler -] 1 - 2 inh PO QID PRN 02/28 01/13 clonazePAM [Klonopin -] 0.5 mg PO BID 05/12/17 Loratadine [Claritin] 10 mg PO DAILY PRN 09/11/17 Furosemide [Lasix -] 40 mg PO DAILY 04/06/18 Gabapentin [Neurontin] 800 mg PO TID 08/02/18 Lisinopril [Prinivil] 20 mg PO DAILY 09/28/18 Omeprazole 40 mg PO DAILY 02/21/19 Pramipexole Di-HCl [Mirapex] 1 mg PO BID 05/01/19 Lamotrigine [Lamictal -] 75 mg PO BID 09/05/19 Ergocalciferol (Vitamin D2) [Vitamin D2] 50,000 unit PO Q7D #5 capsule 12/06/19 Cyanocobalamin Vit B-12 Inj. [Vitamin B12 Injection -] 1,000 mcg IJ WEEKLY 01/16/20 Fluticasone Propionate [Flovent Hfa] 2 puff IH BID 01/16/20 Insulin Lispro [Humalog] 35 unit SQ TID 01/16/20 Meloxicam 15 mg PO DAILY 01/16/20 Sitagliptin Phos/Metformin HCl [Janumet Xr 50-1,000 mg Tablet] 1 tab PO BID 01/16/20 Sumatriptan Succinate [Imitrex -] 25 mg PO PRN PRN 01/16/20 Dabigatran Etexilate Mesylate [Pradaxa -] 150 mg PO BID #30 capsule 02/05/20 Albuterol Sulfate [Proair Hfa] 8.5 gm IH Q4H 02/24/20 Bacitracin Zinc 1 gm TP DAILY 02/24/20 Cephalexin [Keflex] 500 mg PO BID 02/24/20 Ferrous Sulfate 325 mg PO DAILY 02/24/20 Fluticasone Prop 0.05% Nasal [Flonase -] 1 spray NS DAILY 02/24/20 Folic Acid - 4 mg PO DAILY 02/24/20 Hydrocodone/Acetaminophen [[place] 10-325 Tablet] 1 each PO BID MDD 3 02/24/20 Insulin Lispro Protamin/Lispro [Humalog Mix 50-50 Kwikpen] 0 unit SQ ASDIR 02/24/20 Loperamide HCl [Loperamide] 2 mg PO QID PRN 02/24/20 Loratadine [Claritin] 10 mg PO DAILY 02/24/20 Metoprolol Succinate 25 mg PO DAILY 02/24/20 Naproxen Sodium [Naproxen Sodium ER] 500 mg PO BID PRN 02/24/20 Olopatadine HCl 5 ml OP BID 02/24/20 Omeprazole 40 mg PO DAILY 02/24/20 Semaglutide [Ozempic] 1 mg SQ ASDIR 02/24/20 Silver Sulfadiazine [Silvadene] 20 gm TP DAILY 02/24/20 Simethicone [Gas Relief 80] 80 mg PO QID PRN 02/24/20 Tiotropium [place] [Spiriva] 18 mcg IH DAILY 02/24/20 Topiramate 50 mg PO BID 02/24/20 Zolpidem Tartrate [Ambien] 10 mg PO HS 02/24/20 Asthma: Yes Cardiac Disorders: No 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) COPD: Yes (on inhalers) CHF: No Dementia: No Diabetes: Yes GI Disorders: No Disorders: No HTN: Yes Hypercholesterolemia: Yes Liver Disease: Yes (hep C - treated) Psychiatric Problems: Yes Seizures: Yes Thyroid Disease: Yes (hypothyroid) - Surgical History Abdominal Surgery: Yes (UMBILICAL HERNIA) - Immunization History Immunization Up to Date: Yes - Psycho-Social/Smoking History Smoking History: Never smoked Have you smoked in the past 12 months: No If you are a former smoker, when did you quit?: 2012 Information on smoking cessation initiated: No 'Breaking Loose' booklet given: 09/16/14 - Substance Abuse Hx (Audit-C & DAST Scrn) How often the patient has a drink containing alcohol: Never Score: In Men: 4 or > Positive; In Women: 3 or > Positive: 0 Screen Result (Pos requires Nsg. Audit-10AR): Negative In the last yr the pt used illegal drug/Rx for NonMed reason: No Score: Yes response is considered Positive: 0 Screen Result (Positive result requires Nsg. DAST-10): Negative Review of Systems - Review of Systems Comments:: GENERAL/CONSTITUTIONAL: No fever or chills. No weakness._ HEAD, EYES, EARS, NOSE AND THROAT: No change in vision. No change in hearing. No sore throat._ CARDIOVASCULAR: No chest pain or shortness of breath_ RESPIRATORY: Denies cough, hemoptysis_ GASTROINTESTINAL: Reports abdominal pain, nausea, vomiting, diarrhea. No constipation._ GENITOURINARY: No dysuria, frequency, or change in urination._ MUSCULOSKELETAL: No joint or muscle swelling or pain. No neck or back pain._ SKIN: No rash_ NEUROLOGIC: No headache, vertigo, loss of consciousness, or change in strength/sensation._ ENDOCRINE: No increased thirst. No abnormal weight change_ HEMATOLOGIC/LYMPHATIC: No anemia, easy bleeding, or history of blood clots._ ALLERGIC/IMMUNOLOGIC: No hives or skin allergy._ *Physical Exam - Vital Signs Last Vital Signs Temp Pulse Resp BP Pulse Ox 98.9 F 102 H 17 126/62 99 02/24/20 13:08 02/24/20 13:08 02/24/20 13:08 02/24/20 13:08 02/24/20 13:08 - Physical Exam GENERAL: Awake, alert, and oriented to person/place/time, in no acute distress_ HEAD: No signs of trauma, normocephalic, atraumatic _ EYES: PERRLA, EOMI, sclera anicteric, conjunctiva clear_ ENT: Hearing grossly normal, nares patent, oropharynx clear without exudates. No uvular deviation. Moist mucosa_ NECK: Normal ROM, supple, no lymphadenopathy, JVD, or masses_ LUNGS: No distress, speaks in full sentences, clear to auscultation bilaterally _ HEART: Regular rate and rhythm, normal S1 and S2, no murmurs appreciated, peripheral pulses normal and equal bilaterally._ ABDOMEN: Soft, obese, diffuse TTP. No guarding, no rebound. No masses_ EXTREMITIES: Normal inspection, Normal range of motion, 1+ pitting edema. No clubbing or cyanosis_ NEUROLOGICAL: Cranial nerves II through XII grossly intact. Normal speech, normal gait, no focal sensorimotor deficits _ SKIN: Warm, Dry, normal turgor, no rashes or lesions noted_ ED Treatment Course - LABORATORY CBC & Chemistry Diagram: 02/25/20 05:58 02/25/20 05:58 - RADIOLOGY Radiology Studies Ordered: Category Date Time Status CHEST X-RAY PORTABLE* [RAD] Stat Radiology 02/24/20 13:45 Ordered Medical Decision Making - Medical Decision Making 54F hx of HTN HLD COPD DM CVA presenting today with abdominal pain for the past 7 days. Associated with vomiting and diarrhea. No infectious symptoms. -cbc, cmp -ekg, trop, cxr -lipase -lactic -ua, ucx -CT abd w/o contrast (given allergy) -fluids (normal LV function on echo 1 month ago) -tylenol 02/24/20 15:13 EKG 112 bpm, sinus tachycardia, left axis deviation, MA 140, QTc 477, no ST elevation/depression, no significant change compared to 01/15/2020. CXR negative for acute intrathoracic pathology. 02/24/20 16:40 Labs reviewed. Laboratory Last Values WBC 11.5 K/mm3 (4.0-10.0) H 02/24/20 14:00 RBC 3.71 M/mm3 (3.60-5.2) 02/24/20 14:00 Hgb 9.7 GM/dL (10.7-15.3) L 02/24/20 14:00 Hct 29.8 % (32.4-45.2) L 02/24/20 14:00 MCV 80.2 fl (80-96) 02/24/20 14:00 MCH 26.2 pg (25.7-33.7) 02/24/20 14:00 MCHC 32.7 g/dl (32.0-36.0) 02/24/20 14:00 RDW 14.6 % (11.6-15.6) 02/24/20 14:00 Plt Count 414 K/MM3 (134-434) D 02/24/20 14:00 MPV 8.5 fl (7.5-11.1) 02/24/20 14:00 Absolute Neuts (auto) 9.2 K/mm3 (1.5-8.0) H 02/24/20 14:00 Neutrophils % 79.5 % (42.8-82.8) 02/24/20 14:00 Lymphocytes % 11.1 % (8-40) D 02/24/20 14:00 Monocytes % 6.3 % (3.8-10.2) 02/24/20 14:00 Eosinophils % 2.3 % (0-4.5) 02/24/20 14:00 Basophils % 0.8 % (0-2.0) 02/24/20 14:00 Nucleated RBC % 0 % (0-0) 02/24/20 14:00 PT with INR 16.90 SEC (9.7-13.0) H 02/24/20 14:00 INR 1.43 (0.83-1.09) H 02/24/20 14:00 PTT (Actin FS) 47.3 SECONDS (25.2-36.5) H 02/24/20 14:00 Sodium 133 mmol/L (136-145) L 02/24/20 14:00 Potassium 4.7 mmol/L (3.5-5.1) 02/24/20 14:00 Chloride 98 mmol/L (98-107) 02/24/20 14:00 Carbon Dioxide 24 mmol/L (21-32) 02/24/20 14:00 Anion Gap 11 MMOL/L (8-16) 02/24/20 14:00 BUN 6.3 mg/dL (7-18) L 02/24/20 14:00 Creatinine 0.9 mg/dL (0.55-1.3) 02/24/20 14:00 Est GFR (CKD-EPI)AfAm 85.20 02/24/20 14:00 Est GFR (CKD-EPI)NonAf 73.51 02/24/20 14:00 Random Glucose 244 mg/dL (74-106) H 02/24/20 14:00 Lactic Acid 1.1 mmol/L (0.4-2.0) 02/24/20 14:00 Calcium 8.6 mg/dL (8.5-10.1) 02/24/20 14:00 Total Bilirubin 0.4 mg/dL (0.2-1) 02/24/20 14:00 AST 32 U/L (15-37) 02/24/20 14:00 ALT 28 U/L (13-61) 02/24/20 14:00 Alkaline Phosphatase 132 U/L (45-117) H 02/24/20 14:00 Creatine Kinase 163 U/L (26-192) 02/24/20 14:00 Creatine Kinase Index 1.2 % (0.0-5.0) 02/24/20 14:00 CK-MB (CK-2) 2.1 ng/mL (0.5-3.6) 02/24/20 14:00 Troponin I < 0.02 ng/ml (0.00-0.05) 02/24/20 14:00 Total Protein 7.0 g/dl (6.4-8.2) 02/24/20 14:00 Albumin 2.6 g/dl (3.4-5.0) L 02/24/20 14:00 Lipase 115 U/L (73-393) 02/24/20 14:00 Serum , Qual Negative 02/24/20 14:00 Urine Color Yellow 02/24/20 14:30 Urine Appearance Clear 02/24/20 14:30 Urine pH 7.0 (5.0-8.0) 02/24/20 14:30 Ur Specific [place] 1.010 (1.010-1.035) 02/24/20 14:30 Urine Protein 1+ (NEGATIVE) H 02/24/20 14:30 Urine Glucose (UA) Trace (NEGATIVE) 02/24/20 14:30 Urine Ketones Negative (NEGATIVE) 02/24/20 14:30 Urine Blood 2+ (NEGATIVE) H 02/24/20 14:30 Urine Nitrite Negative (NEGATIVE) 02/24/20 14:30 Urine Bilirubin Negative (NEGATIVE) 02/24/20 14:30 Urine Urobilinogen 0.2 mg/dL (0.2-1.0) 02/24/20 14:30 Ur Leukocyte Esterase Trace (NEGATIVE) 02/24/20 14:30 Urine WBC (Auto) 25 /uL (0-25.8) 02/24/20 14:30 Urine Casts (Auto) 0 /uL (0-3.1) 02/24/20 14:30 U Epithel Cells (Auto) 23 /uL (0-25.1) 02/24/20 14:30 Urine Bacteria (Auto) 220 /uL (0-1359) 02/24/20 14:30 02/24/20 19:20 Pt s/o to Dr. Mallory Giraldo pending CT abd read and reevaluation. Discharge - Discharge Information Problems reviewed: Yes Clinical Impression/Diagnosis: Adnexal mass Abdominal pain Qualifiers: Abdominal location: epigastric Qualified Code(s): R10.13 - Epigastric pain Nausea & vomiting Qualifiers: Vomiting type: unspecified Vomiting Intractability: non-intractable Qualified Code(s): R11.2 - Nausea with vomiting, unspecified Condition: Stable - Admission Yes - Follow up/Referral - Patient Discharge Instructions - Post Discharge Activity
[2020-02-24] MEDS ORDERED: ACETAMINOPHEN 1000 MG/100 ML VIAL (NON FORMULARY) IVPB ONE (14:06)
[2020-02-24] MEDS ORDERED: ACETAMINOPHEN INJECTION 100 ML IVPB ONE (14:40)
[2020-02-24 15:14] LABS: BASO % 0.8 % (0-2.0); EOS % 2.3 % (0-4.5); HEMATOCRIT 29.8 % (32.4-45.2); HEMOGLOBIN 9.7 GM/dL (10.7-15.3); LYMPH % 11.1 % (8-40); MCH 26.2 pg (25.7-33.7); MCHC 32.7 g/dl (32.0-36.0); MEAN CELL VOLUME 80.2 fl (80-96); MEAN PLT VOLUME 8.5 fl (7.5-11.1); MONO % 6.3 % (3.8-10.2); NEUT % 79.5 % (42.8-82.8); PLATELET COUNT 414 K/MM3 (134-434); RBC 3.71 M/mm3 (3.60-5.2); RDW 14.6 % (11.6-15.6); WHITE BLOOD COUNT 11.5 K/mm3 (4.0-10.0)
[2020-02-24 15:19] LABS: INR 1.43 (0.83-1.09); PROTHROMBIN TIME (PATIENT) 16.9 SEC (9.7-13.0)
[2020-02-24 15:22] LABS: ACTIVATED PTT 47.3 SECONDS (25.2-36.5)
[2020-02-24 16:07] LABS: EPI CELLS 23 /uL (0-25.1); HYALINE CASTS 0 /uL (0-3.1); URINE APPEARANCE CLEAR; URINE BACTERIA 220 /uL (0-1359); URINE BILIRUBIN NEGATIVE (NEGATIVE); URINE COLOR YELLOW; URINE GLUCOSE (UA) TRACE (NEGATIVE); URINE KETONE NEGATIVE (NEGATIVE); URINE LEUK ESTERASE TRACE (NEGATIVE); URINE NITRITE NEGATIVE (NEGATIVE); URINE PROTEIN 1+ (NEGATIVE); URINE UROBILINOGEN 0.2 mg/dL (0.2-1.0); URINE WBC 25 /uL (0-25.8)
[2020-02-24 16:08] LABS: ALBUMIN 2.6 g/dl (3.4-5.0); ALK PHOS 132 U/L (45-117); ANION GAP 11 MMOL/L (8-16); BILIRUBIN,TOTAL 0.4 mg/dL (0.2-1); BLOOD UREA NITROGEN 6.3 mg/dL (7-18); CALCIUM 8.6 mg/dL (8.5-10.1); CHLORIDE 98 mmol/L (98-107); CO2 24 mmol/L (21-32); CREATININE 0.9 mg/dL (0.55-1.3); GLUCOSE,RANDOM 244 mg/dL (74-106); LIPASE 115 U/L (73-393); POTASSIUM 4.7 mmol/L (3.5-5.1); SGOT/AST 32 U/L (15-37); SGPT/ALT 28 U/L (13-61); SODIUM 133 mmol/L (136-145)
[2020-02-24] MEDS ORDERED: SODIUM CHLORIDE 0.9% 500 ML INFUS.BAG IV ONE (16:14)
--- NOTE | 2020-02-24 17:01 | PDOC ---
Attending Attestation - Resident Resident Name: Floyd Giraldo - ED Attending Attestation I have performed the following: I have examined & evaluated the patient, The case was reviewed & discussed with the resident, I agree w/resident's findings & plan, Exceptions are as noted Discharge - Follow up/Referral Referrals: Michelle Ken MD [Primary Care Provider] - - Patient Discharge Instructions - Post Discharge Activity
[2020-02-24 17:34] LABS: URINE RBC 68.3 /uL (0-23.9)
--- NOTE | 2020-02-24 17:58 | PDOC ---
Documentation entered by Migdalia Vaca SCRIBE, acting as scribe for Lolis Jc MD. Lolis Jc MD: This documentation has been prepared by the Lio marte Xhesika, SCRIBE, under my direction and personally reviewed by me in its entirety. I confirm that the documentation accurately reflects all work, treatment, procedures, and medical decision making performed by me. Attending Attestation - Resident Resident Name: Floyd Giraldo - ED Attending Attestation I have performed the following: I have examined & evaluated the patient, The case was reviewed & discussed with the resident, I agree w/resident's findings & plan, Exceptions are as noted - HPI HPI: 02/24/20 17:15 The patient is a 54y/o F, with a PMH of HTN, HLD, DM, CVA, COPD, OA with chronic pain, bipolar disorder, and recently diagnosed b/l PE and DVTs (01/18/2020) who presents to the ED with abdominal pain x1 week. Pt describes the pain as intermittent, diffuse, sharp in nature, non-radiating, associated with 4 episodes of NBNB vomiting the past 4 days. Pt has been compliant with her blood thinners. The patient denies chest pain, shortness of breath, headache and dizziness. Denies fever, chills, cough, diarrhea and constipation. Denies dysuria, frequency, urgency and hematuria. Allergies: enoxaparin, iodinated contrast media, azithromycin SurgHx: hernia repair, hysterectomy PCP: Michelle Ken - Physicial Exam PE: 02/24/20 17:52 Agree with resident exam - Medical Decision Making 02/24/20 17:54 54yo F presents to the ED with 1 week of diffuse abd pain Recent PE/DVT for which she is taking her blood thinners. Denies CP/SOB. Vitals with mild hypoxia to 94% on RA, however pt with hx COPD Exam with diffuse mild ttp DDx includes gastritis vs GERD vs colitis vs appendicitis vs diverticulitis vs cholecystitis vs pancreatitis vs UTI Plan for labs, UA, pain control, CTAP, reassess Discharge - Follow up/Referral Referrals: Michelle Ken MD [Primary Care Provider] - - Patient Discharge Instructions - Post Discharge Activity
--- NOTE | 2020-02-24 20:20 | PDOC ---
*Physical Exam - Vital Signs Last Vital Signs Temp Pulse Resp BP Pulse Ox 98.9 F 105 H 24 H 115/62 98 02/24/20 13:08 02/24/20 20:12 02/24/20 20:12 02/24/20 20:12 02/24/20 20:12 - Physical Exam Pelvic exam: External genitalia normal without lesions. Vaginal vault with blood and yellowish discharge Cervix is long and closed. No cervical motion tenderness. Uterus is nontender and normal in size. L Adnexa tender, with large palpable mass R adnexa nontender, no masses palpable ED Treatment Course - LABORATORY CBC & Chemistry Diagram: 02/24/20 14:00 02/24/20 14:00 - ADDITIONAL ORDERS Additional order review: Laboratory Results 02/24/20 02/24/20 02/24/20 20:02 14:30 14:00 PT with INR INR PTT (Actin FS) Sodium Potassium Chloride Carbon Dioxide Anion Gap BUN Creatinine Est GFR (CKD-EPI)AfAm Est GFR (CKD-EPI)NonAf POC Glucometer 240 Random Glucose Lactic Acid 1.1 Calcium Total Bilirubin AST ALT Alkaline Phosphatase Creatine Kinase Creatine Kinase Index CK-MB (CK-2) Troponin I Total Protein Albumin Lipase Serum , Qual Urine Color Yellow Urine Appearance Clear Urine pH 7.0 Ur Specific [place] 1.010 Urine Protein 1+ H Urine Glucose (UA) Trace Urine Ketones Negative Urine Blood 2+ H Urine Nitrite Negative Urine Bilirubin Negative Urine Urobilinogen 0.2 Ur Leukocyte Esterase Trace Urine WBC (Auto) 25 Urine RBC (Auto) 68.3 Urine Casts (Auto) 0 U Epithel Cells (Auto) 23 Urine Bacteria (Auto) 220 02/24/20 02/24/20 02/24/20 14:00 14:00 14:00 PT with INR 16.90 H INR 1.43 H PTT (Actin FS) 47.3 H Sodium 133 L Potassium 4.7 Chloride 98 Carbon Dioxide 24 Anion Gap 11 BUN 6.3 L Creatinine 0.9 Est GFR (CKD-EPI)AfAm 85.20 Est GFR (CKD-EPI)NonAf 73.51 POC Glucometer Random Glucose 244 H Lactic Acid Calcium 8.6 Total Bilirubin 0.4 AST 32 ALT 28 Alkaline Phosphatase 132 H Creatine Kinase 163 Creatine Kinase Index 1.2 CK-MB (CK-2) 2.1 Troponin I < 0.02 Total Protein 7.0 Albumin 2.6 L Lipase 115 Serum , Qual Negative Urine Color Urine Appearance Urine pH Ur Specific [place] Urine Protein Urine Glucose (UA) Urine Ketones Urine Blood Urine Nitrite Urine Bilirubin Urine Urobilinogen Ur Leukocyte Esterase Urine WBC (Auto) Urine RBC (Auto) Urine Casts (Auto) U Epithel Cells (Auto) Urine Bacteria (Auto) 02/24/20 02/24/20 20:02 14:00 RBC 3.71 MCV 80.2 MCHC 32.7 RDW 14.6 MPV 8.5 Neutrophils % 79.5 Lymphocytes % 11.1 D Monocytes % 6.3 Eosinophils % 2.3 Basophils % 0.8 POC Glucometer 240 - Medications Given in the ED: ED Medications Discontinued Medications Generic Name Dose Route Start Last Admin Trade Name Freq PRN Reason Stop Dose Admin Acetaminophen 1,000 mg 02/24/20 14:06 02/24/20 15:40 Ofirmev Injection - IVPB 02/24/20 14:07 1,000 mg ONCE ONE Administration Sodium Chloride 1,000 ml 02/24/20 16:14 02/24/20 16:53 Normal Saline - IV 02/24/20 16:15 1,000 ml ONCE ONE Administration Medical Decision Making - Medical Decision Making Pt signed out to me by Dr. Floyd Giraldo from AM team. 54F hx of HTN HLD COPD DM CVA PE, DVT presenting today with abdominal pain for the past 7 days. Associated with vomiting and diarrhea. No infectious symptoms. CT a/p In comparison to prior CT studies performed on 05/24/2019 note is made of interval development of fluid and edema within a pre-existing large approximately 10 x 7 cm midline/left paramedian paraumbilical hernia containing fat as on the prior study. No associated bowel herniation is noted. Interval development of mild mesenteric edema is seen within the left paramedian aspect of the mid pelvis. Note is also made of interval development of subcutaneous edema along the anterior pelvic wall bilaterally, left somewhat more prominent than right. Interval development of an approximately 9 x 8 x 8 cm noncalcified structure is seen within the left mid to upper pelvis which is probably adnexal in origin which may represent a complex cyst versus a solid lesion. Interval development of mild mesenteric soft tissue thickening is noted at the approximate junction of the left abdomen/pelvis ventrally. Note is made of interval development of a 3.7 cm left inguinal lymph node. There is also interval development of several enlarged left periaortic retroperitoneal lymph nodes with a 2.5 cm maximum diameter. Note is also made of enlarged bilateral external iliac chain lymph nodes with a 1.7 cm maximum diameter. There is possible mildly increased uterine enlargement. Evaluation of the lower pelvis is somewhat limited on this exam due to artifact associated with body habitus. No evidence of pneumoperitoneum, ascites or bowel obstruction. The appendix is not definitely identified. No obvious indirect CT signs of acute appendicitis or seen. There is no CT evidence of acute diverticulitis or obvious acute colitis. As on the prior study there is probable diffuse hepatic steatosis with hepatomegaly. No gross mass lesion is identified. Splenomegaly is again seen with a 15 cm in length. A 0.4 cm nonobstructing left renal lower pole calculus is again noted. There is no aortic aneurysm. Marked bilateral lower lumbar degenerative facet arthropathy. Impression: In comparison to CT performed on 05/24/2019 interval development of fluid and edema is seen within a pre-existing approximately 10 x 7 cm midline/left paramedian paraumbilical hernia which contains fat. No associated bowel herniation is identified. Interval development of subcutaneous edema is seen along the anterior pelvic wall bilaterally, left somewhat more prominent than right. Development of an approximately 9 x 8 x 8 cm left adnexal spherical structure is noted which, on the basis of this noncontrast exam, may represent a nonspecific complex cyst versus a solid lesion. Interval development of retroperitoneal, bilateral pelvic and left inguinal lymphadenopathy is seen. Development of mild mesenteric soft tissue thickening is noted adjacent to the left abdominal pelvic wall - ? possible carcinomatosis. There is possible mildly increased uterine enlargement. Probable diffuse hepatic steatosis with hepatomegaly as on the prior exam. Splenomegaly is again noted without interval change (15 cm length). 0.4 cm nonobstructing left renal calculus as on the prior exam. 02/24/20 20:39 Pt reports epigastric bloating abdominal pain, unchanged with palpation. Ordered TVUS to further evaluate L adnexal structure seen on CT. Given epigastric abdominal pain, history of PE, tachycardia, tachypnea, hypoxia, we are concerned for PE. However patient has allergy to contrast (throat swelling), so plan for V/Q scan in AM. PCP: Irma 02/24/20 23:[address] Rikki Tarango who accepted care for patient. Admitting Dr. Benjamin 02/25/20 00:38 Pelvic exam performed given US with cystic mass with internal debris; there was moderate blood in vaginal vault with moderate discharge. -CMT, palpable mass in left adnexa. Obtained urine from straight cath. UA with proteinuria, ketonuria, blood in urine, no bacteria, -LE, -nitrites Disposition Admit Discharge - Discharge Information Problems reviewed: Yes Clinical Impression/Diagnosis: Adnexal mass Abdominal pain Qualifiers: Abdominal location: epigastric Qualified Code(s): R10.13 - Epigastric pain Condition: Stable - Admission Yes - Follow up/Referral - Patient Discharge Instructions - Post Discharge Activity
[2020-02-24] MEDS ORDERED: CEFTRIAXONE 1,000 MG in DEXTROSE 5%-WATER - 50 ML IVPB ONE (23:11)
--- NOTE | 2020-02-24 23:11 | HP ---
CHIEF COMPLAINT: PCP: Michelle Ken HISTORY OF PRESENT ILLNESS: The is a 54y/o F, with a PMH of HTN, HLD, DM, CVA, COPD/Asthma (not on home o2), OA with chronic pain, bipolar disorder (on lamictal), and recently diagnosed b/l PE and DVTs on pradaxa (01/18/2020) who presents to the ED with epigastric pain x1 week. Pt describes the pain as intermittent, diffuse, sharp in nature, non-radiating, associated with 4 episodes of NBNB vomiting the past 4 days. Pt has been compliant with her blood thinners. The patient denies chest pain, shortness of breath, headache and dizziness. Denies fever, chills, cough, diarrhea and constipation. Denies dysuria, frequency, urgency and hematuria. Denies any recent sexual contacts. Her LMP was january 30 and it was minimal only lasting two days which is shorter than her usual length. Denies any weight loss, night sweats or other constitutional symptoms/B symptoms. Patient admitted for PID mgmt and PE ER course was notable for: (1)trops negative X 2 (2)CT abd pelvis: 10X7 cm midline /Lt paramedian paraumbillical hernia with mild mesenteric edema noted in left paramedian aspect with subq edema along pelvic wall Lt>Rt. 9 X 8 X 8cm noncalcified structure in Lt-> mid upper pelvis possible adnexal cyst, mesenteric soft tissue stranding, 3.[address], left paraaortic retroperitoneal LN's, splenomegaly (15cm), 0.4 cm non-obstructive Lt renal lower pole calculus, diffuse hepatic steatosis with hepatomegaly shown on abd sono as well, possbile carcinomatosis and TVUS showing 10X 4 X 8 cm nonspecific left adnexal cyst, 2.7 CM rt ovarian cyst, no torsion. (3) UA- 1+ protein, 2+ blood Family Hx: Dad- DM, HTN, HLD Mom-esophageal, colon, and stomach Cancer PAST SURGICAL HISTORY: hernia repair, tubal ligation, Social History: Smokinppd X 31 yrs but quit 8 yrs ago Alcohol: none Drugs: none Allergies enoxaparin [From Lovenox] Allergy (Intermediate, Verified 02/24/20 13:53) Rash Iodinated Contrast Media [Iodinated Contrast Media - IV Dye] Allergy (Intermediate, Verified 02/24/20 13:53) Itching azithromycin Adverse Reaction (Intermediate, Verified 02/24/20 13:53) Itching 10/26/17 SUSPECTED ADR TO ZITHROMAX . RX: MILD: ITCHING,NAUSEA. HOME MEDICATIONS: Home Medications Medication Instructions Recorded Fluoxetine HCl [Prozac -] 40 mg PO AM 09/15/14 Albuterol Sulfate Inhaler - 1 - 2 inh PO QID PRN 03/15/16 [Ventolin HFA Inhaler -] clonazePAM [Klonopin -] 0.5 mg PO BID 05/12/17 Loratadine [Claritin] 10 mg PO DAILY PRN 09/11/17 Furosemide [Lasix -] 40 mg PO DAILY 04/06/18 Gabapentin [Neurontin] 800 mg PO TID 08/02/18 Lisinopril [Prinivil] 20 mg PO DAILY 09/28/18 Omeprazole 40 mg PO DAILY 02/21/19 Pramipexole Di-HCl [Mirapex] 1 mg PO BID 05/01/19 Lamotrigine [Lamictal -] 75 mg PO BID 09/05/19 Ergocalciferol (Vitamin D2) 50,000 unit PO Q7D #5 capsule 12/06/19 [Vitamin D2] Cyanocobalamin Vit B-12 Inj. 1,000 mcg IJ WEEKLY 01/16/20 [Vitamin B12 Injection -] Fluticasone Propionate [Flovent 2 puff IH BID 01/16/20 Hfa] Insulin Lispro [Humalog] 35 unit SQ TID 01/16/20 Meloxicam 15 mg PO DAILY 01/16/20 Sitagliptin Phos/Metformin HCl 1 tab PO BID 01/16/20 [Janumet Xr 50-1,000 mg Tablet] Sumatriptan Succinate [Imitrex -] 25 mg PO PRN PRN 01/16/20 Dabigatran Etexilate Mesylate 150 mg PO BID #30 capsule 02/05/20 [Pradaxa -] Albuterol Sulfate [Proair Hfa] 8.5 gm IH Q4H 02/24/20 Bacitracin Zinc 1 gm TP DAILY 02/24/20 Cephalexin [Keflex] 500 mg PO BID 02/24/20 Ferrous Sulfate 325 mg PO DAILY 02/24/20 Fluticasone Prop 0.05% Nasal 1 spray NS DAILY 02/24/20 [Flonase -] Folic Acid - 4 mg PO DAILY 02/24/20 Hydrocodone/Acetaminophen [Minerva 1 each PO BID MDD 3 02/24/20 10-325 Tablet] Insulin Lispro Protamin/Lispro 0 unit SQ ASDIR 02/24/20 [Humalog Mix 50-50 Kwikpen] Loperamide HCl [Loperamide] 2 mg PO QID PRN 02/24/20 Loratadine [Claritin] 10 mg PO DAILY 02/24/20 Metoprolol Succinate 25 mg PO DAILY 02/24/20 Naproxen Sodium [Naproxen Sodium 500 mg PO BID PRN 02/24/20 ER] Olopatadine HCl 5 ml OP BID 02/24/20 Omeprazole 40 mg PO DAILY 02/24/20 Semaglutide [Ozempic] 1 mg SQ ASDIR 02/24/20 Silver Sulfadiazine [Silvadene] 20 gm TP DAILY 02/24/20 Simethicone [Gas Relief 80] 80 mg PO QID PRN 02/24/20 Tiotropium [place] [Spiriva] 18 mcg IH DAILY 02/24/20 Topiramate 50 mg PO BID 02/24/20 Zolpidem Tartrate [Ambien] 10 mg PO HS 02/24/20 REVIEW OF SYSTEMS negative except as in HPI PHYSICAL EXAMINATION Vital Signs - 24 hr 02/24/20 02/24/20 02/24/20 13:08 15:05 15:43 Temperature 98.9 F Pulse Rate 102 H Pulse Rate [ 96 H Left Radial] Respiratory 17 22 H Rate Blood Pressure 126/62 Blood Pressure 120/70 [Right Arm] O2 Sat by Pulse 99 94 L 94 L Oximetry (%) 02/24/20 20:12 Temperature Pulse Rate Pulse Rate [ 105 H Left Radial] Respiratory 24 H Rate Blood Pressure Blood Pressure 115/62 [Right Arm] O2 Sat by Pulse 98 Oximetry (%) GENERAL: Awake, alert, and fully oriented, in no acute distress. LUNGS: Breath sounds equal, clear to auscultation bilaterally. No wheezes, and no crackles. No accessory muscle use. HEART: Regular rate and rhythm, normal S1 and S2 without murmur, rub or gallop. ABDOMEN: Soft, tender to palpation mid-epigastrium, not distended, normoactive bowel sounds, increased guarding and rebound, umbilical hernia present, Hepatomegaly splenomegaly palpable. LOWER EXTREMITIES: 2+ pulses, warm, well-perfused. No calf tenderness. No peripheral edema. NEUROLOGICAL: Cranial nerves II-XII intact. Normal speech. Normal gait. Laboratory Results - last 24 hr 02/24/20 02/24/20 02/24/20 14:00 14:00 14:00 WBC 11.5 H RBC 3.71 Hgb 9.7 L Hct 29.8 L MCV 80.2 MCH 26.2 MCHC 32.7 RDW 14.6 Plt Count 414 D MPV 8.5 Absolute Neuts (auto) 9.2 H Neutrophils % 79.5 Lymphocytes % 11.1 D Monocytes % 6.3 Eosinophils % 2.3 Basophils % 0.8 Nucleated RBC % 0 PT with INR 16.90 H INR 1.43 H PTT (Actin FS) 47.3 H Sodium Potassium Chloride Carbon Dioxide Anion Gap BUN Creatinine Est GFR (CKD-EPI)AfAm Est GFR (CKD-EPI)NonAf POC Glucometer Random Glucose Lactic Acid Calcium Total Bilirubin AST ALT Alkaline Phosphatase Creatine Kinase Creatine Kinase Index CK-MB (CK-2) Troponin I Total Protein Albumin Lipase Serum , Qual Negative Urine Color Urine Appearance Urine pH Ur Specific [place] Urine Protein Urine Glucose (UA) Urine Ketones Urine Blood Urine Nitrite Urine Bilirubin Urine Urobilinogen Ur Leukocyte Esterase Urine WBC (Auto) Urine RBC (Auto) Urine Casts (Auto) U Epithel Cells (Auto) Urine Bacteria (Auto) 02/24/20 02/24/20 02/24/20 14:00 14:00 14:30 WBC RBC Hgb Hct MCV MCH MCHC RDW Plt Count MPV Absolute Neuts (auto) Neutrophils % Lymphocytes % Monocytes % Eosinophils % Basophils % Nucleated RBC % PT with INR INR PTT (Actin FS) Sodium 133 L Potassium 4.7 Chloride 98 Carbon Dioxide 24 Anion Gap 11 BUN 6.3 L Creatinine 0.9 Est GFR (CKD-EPI)AfAm 85.20 Est GFR (CKD-EPI)NonAf 73.51 POC Glucometer Random Glucose 244 H Lactic Acid 1.1 Calcium 8.6 Total Bilirubin 0.4 AST 32 ALT 28 Alkaline Phosphatase 132 H Creatine Kinase 163 Creatine Kinase Index 1.2 CK-MB (CK-2) 2.1 Troponin I < 0.02 Total Protein 7.0 Albumin 2.6 L Lipase 115 Serum , Qual Urine Color Yellow Urine Appearance Clear Urine pH 7.0 Ur Specific [place] 1.010 Urine Protein 1+ H Urine Glucose (UA) Trace Urine Ketones Negative Urine Blood 2+ H Urine Nitrite Negative Urine Bilirubin Negative Urine Urobilinogen 0.2 Ur Leukocyte Esterase Trace Urine WBC (Auto) 25 Urine RBC (Auto) 68.3 Urine Casts (Auto) 0 U Epithel Cells (Auto) 23 Urine Bacteria (Auto) 220 02/24/20 20:02 WBC RBC Hgb Hct MCV MCH MCHC RDW Plt Count MPV Absolute Neuts (auto) Neutrophils % Lymphocytes % Monocytes % Eosinophils % Basophils % Nucleated RBC % PT with INR INR PTT (Actin FS) Sodium Potassium Chloride Carbon Dioxide Anion Gap BUN Creatinine Est GFR (CKD-EPI)AfAm Est GFR (CKD-EPI)NonAf POC Glucometer 240 Random Glucose Lactic Acid Calcium Total Bilirubin AST ALT Alkaline Phosphatase Creatine Kinase Creatine Kinase Index CK-MB (CK-2) Troponin I Total Protein Albumin Lipase Serum , Qual Urine Color Urine Appearance Urine pH Ur Specific [place] Urine Protein Urine Glucose (UA) Urine Ketones Urine Blood Urine Nitrite Urine Bilirubin Urine Urobilinogen Ur Leukocyte Esterase Urine WBC (Auto) Urine RBC (Auto) Urine Casts (Auto) U Epithel Cells (Auto) Urine Bacteria (Auto) ASSESSMENT/PLAN: The is a 54y/o F, with a PMH of HTN, HLD, DM, CVA, COPD/Asthma (not on home o2), OA with chronic pain, bipolar disorder, and recently diagnosed b/l PE and DVTs on pradaxa (01/18/2020) who presents to the ED with epigastric pain x1 week. Pt describes the pain as intermittent, diffuse, sharp in nature, non-radiating, associated with 4 episodes of NBNB vomiting the past 4 days. #SIRS with epigastric tenderness - 2/2 adnexal cyst/ ? PID per ED pelvic exam had mucopurulent cervix but no chandelier sign noted - TAX TECHNICIAN consulted (Dr. Flores) will appreciate recs - cef/doxy as pt with allergy to zpac for G/C coverage for PID - 11.5 wbc and tachycardic - G/C NAAT ordered, test negative - #Hx of B/L PE - doubt PE given wells score of 3 and lack of hypoxia - obtain ABG to assess if an Aa gradient is present - continue pradaxa 150 BID for now as pt is likely hypercoaguable given possible malignancy as noted by the extensive lymphadenopathy however if H/H continues to drop may want to dc AC. #Diffuse lymphadenopathy/hepatic steatosis - Onc consulted for abd carcinomatosis or ? ovarian malignancy w/u given diffuse lymphadenopathy on imaging as listed above - MOSES likely 2/2 dietary habits and morbid obesity, dietary adjustment recommended to patient - Low fat, low carbohydrate diet - CA 125 ordered #Anemia likely chronic given normal MCV and per chart review patient had similar H/H in past FOBT sent by ED staff iron studies sent no signs of overt bleed will transfuse if Hgb <7 - pt on home iron supplementation, b12/folic acid #DM, HTN, HLD, Bipolar disorder - continue home meds as prescribed FEN - IV NS 75/hr - will monitor and replete lytes prn DVT ppx: Pradaxa 150 BID Visit type - Emergency Visit Emergency Visit: Yes ED Registration Date: 02/24/20 Care time: The patient presented to the Emergency Department on the above date and was hospitalized for further evaluation of their emergent condition. - New Patient This patient is new to me today: Yes Date on this admission: 02/25/20 - Critical Care Critical Care patient: No ATTENDING PHYSICIAN STATEMENT I saw and evaluated the patient. I reviewed the resident's note and discussed the case with the resident. I agree with the resident's findings and plan as documented. SUBJECTIVE: OBJECTIVE: ASSESSMENT AND PLAN:
[2020-02-24] MEDS ORDERED: CEFTRIAXONE 1 GM/50 ML BAG ONE (23:59)
[2020-02-25] MEDS ORDERED: DABIGATRAN ETEXILATE MESYLATE 150 MG CAPSULE PO ONE (00:09)
--- NOTE | 2020-02-25 00:59 | PN ---
Teaching Attending Note Name of Resident: Rikki Tarango ATTENDING PHYSICIAN STATEMENT I saw and evaluated the patient. I reviewed the resident's note and discussed the case with the resident. I agree with the resident's findings and plan as documented. SUBJECTIVE: 54 years old F, with a PMH of HTN, HLD, DM, CVA, COPD, OA with chronic pain, bipolar disorder, and recently diagnosed b/l PE and DVTs on pradaxa (01/18/2020) who presents to the ED with epigastric pain. As per patient she has been having noe nd off abd pain, sharp, non radiating. Associated symptoms were 4 episodes of non bloody vomiting. She denies chest pain, SOB, dizziness, LOC, diarrhea, constipation, dysuria,frequency, urgency OBJECTIVE: Last Vital Signs Temp Pulse Resp BP Pulse Ox 98.9 F 105 H 24 H 115/62 98 02/24/20 13:08 02/24/20 20:12 02/24/20 20:12 02/24/20 20:12 02/24/20 20:12 CT abd pelvis: 10X7 cm midline /Lt paramedian paraumbillical hernia with mild mesenteric edema noted in left paramedian aspect with subq edema along pelvic wall Lt>Rt. 9 X 8 X 8cm noncalcified structure in Lt-> mid upper pelvis possible adnexal cyst, mesenteric soft tissue stranding, 3.[address], left paraaortic retroperitoneal LN's, splenomegaly (15cm), 0.4 cm non-obstructive Lt renal lower pole calculus, diffuse hepatic steatosis with hepatomegaly shown on abd sono as well, possbile carcinomatosis and TVUS showing 10X 4 X 8 cm nonspecific left adnexal cyst, 2.7 CM rt ovarian cyst, no torsion. (3) UA- 1+ protein, 2+ blood ASSESSMENT AND PLAN: Abd pain with adnexea cyst/mass ? sepsis due to PID/ intra abd source Ct scan shows abd carcinomatosis r/o malignancy - ovarian ? 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 cont if no contraindications ABG -check gradient - I doubt New PE on anti coagulation with no hypoxia Hyperglycemia - POCT with RISS
[2020-02-25] MEDS ORDERED: LOPERAMIDE HCL 2 MG CAPSULE PO PRN (01:14)
[2020-02-25] MEDS ORDERED: SIMETHICONE 80 MG TAB.CHEW (FP) PO PRN (01:14)
[2020-02-25] MEDS ORDERED: ALBUTEROL SO4 HFA INHALER IH SCH (01:15)
[2020-02-25] MEDS ORDERED: ZOLPIDEM TARTRATE 5 MG TABLET PO PRN (01:28)
[2020-02-25 01:31] LABS: EPI CELLS 23 /uL (0-25.1); HYALINE CASTS 0 /uL (0-3.1); URINE APPEARANCE CLEAR; URINE BACTERIA 16 /uL (0-1359); URINE BILIRUBIN NEGATIVE (NEGATIVE); URINE COLOR YELLOW; URINE GLUCOSE (UA) TRACE (NEGATIVE); URINE KETONE 1+ (NEGATIVE); URINE LEUK ESTERASE NEGATIVE (NEGATIVE); URINE NITRITE NEGATIVE (NEGATIVE); URINE PROTEIN 1+ (NEGATIVE); URINE RBC 135 /uL (0-23.9); URINE WBC 11 /uL (0-25.8)
[2020-02-25] MEDS ORDERED: HEPARIN NA (PORCINE) 5,000 UNITS/ML 1ML VIAL SQ SCH (02:00)
[2020-02-25 02:59] LABS: ARTERIAL BLD GAS O2 SATURATION 97.1 mmHg (95-98); ARTERIAL BLOOD GAS PO2 88.3 mmHg (80-100); ARTERIAL BLOOD GAS pH 7.438 (7.350-7.450)
[2020-02-25] MEDS ORDERED: MAG HYDROX/AL HYDROX/SIMETH 30 ML UNIT-DOSE CUP ONE (02:59)
[2020-02-25] MEDS ORDERED: MAG HYDROX/AL HYDROX/SIMETH 30 ML UNIT-DOSE CUP PO ONE (03:01)
[2020-02-25 03:02] LABS: ALLENS TEST POSITIVE
[2020-02-25] MEDS: SODIUM CHLORIDE 1,000 ML IV SCH ×2 (03:48→15:56)
[2020-02-25] MEDS ORDERED: GABAPENTIN 400 MG CAPSULE PO SCH (06:00)
[2020-02-25] MEDS ORDERED: GABAPENTIN 100 MG CAPSULE ONE ×2 (06:30→14:34)
[2020-02-25] MEDS: GABAPENTIN 400 MG CAPSULE PO SCH ×3 (06:37→23:00)
[2020-02-25 06:45] LABS: BASO % 0.3 % (0-2.0); EOS % 2.9 % (0-4.5); HEMATOCRIT 29.1 % (32.4-45.2); HEMOGLOBIN 9.7 GM/dL (10.7-15.3); LYMPH % 11.7 % (8-40); MCH 26.7 pg (25.7-33.7); MCHC 33.2 g/dl (32.0-36.0); MEAN CELL VOLUME 80.4 fl (80-96); MEAN PLT VOLUME 8.3 fl (7.5-11.1); MONO % 7.1 % (3.8-10.2); PLATELET COUNT 424 K/MM3 (134-434); RBC 3.62 M/mm3 (3.60-5.2); RDW 15.2 % (11.6-15.6)
[2020-02-25 07:14] LABS: ALBUMIN 2.6 g/dl (3.4-5.0); BILIRUBIN,TOTAL 0.5 mg/dL (0.2-1); BLOOD UREA NITROGEN 6.9 mg/dL (7-18); CALCIUM 8.3 mg/dL (8.5-10.1); CREATININE 0.8 mg/dL (0.55-1.3); MAGNESIUM 2.4 mg/dL (1.8-2.4); POTASSIUM 4.1 mmol/L (3.5-5.1); TOT PROT 7.1 g/dl (6.4-8.2)
--- NOTE | 2020-02-25 07:50 | PN ---
Progress Note, Physician Chief Complaint: Seen and examined in the Ed on stretcher. States abdominal pain is much improved-minimal nausea, no vomiting. Pending oncology and PAPER BOX MAKER eval. COVID pending History of Present Illness: 54y/o F, with a PMH of HTN, HLD, DM, CVA, COPD/Asthma (not on home o2), OA with chronic pain, bipolar disorder, and recently diagnosed b/l PE and DVTs on pradaxa (01/18/2020) who presents to the ED with epigastric pain x1 week. Pt describes the pain as intermittent, diffuse, sharp in nature, non-radiating, associated with 4 episodes of NBNB vomiting the past 4 days. - Current Medication List Current Medications: Active Medications Bacitracin (Bacitracin -) 1 applic TP DAILY [facility] Dabigatran (Pradaxa -) 150 mg PO BID [facility] Ergocalciferol (Drisdol -) 50,000 unit PO Q7D@1000 SHAUN Ferrous Sulfate (Feosol -) 325 mg PO DAILY [facility] Fluoxetine HCl (Prozac -) 40 mg PO AM [facility] Fluticasone Propionate (Flonase -) 1 spray NS DAILY [facility] Folic Acid (Folic Acid -) 4 mg PO DAILY [facility] Furosemide (Lasix -) 40 mg PO DAILY [facility] Gabapentin (Neurontin -) 800 mg PO TID [facility] Last Admin: 02/25/20 06:37 Dose: 800 mg Documented by: Doxycycline Hyclate 100 mg/ (Dextrose) 100 mls @ 100 mls/hr IVPB BID [facility] Sodium Chloride (Normal Saline -) 1,000 mls @ 75 mls/hr IV ASDIR [facility] Last Admin: 02/25/20 03:48 Dose: 75 mls/hr Documented by: Ceftriaxone Sodium 1 gm/ (Dextrose) 50 mls @ 100 mls/hr IVPB DAILY [facility] Insulin Aspart (Novolog Vial Sliding Scale -) 1 vial SQ ACHS SHAUN; Protocol Insulin Aspart (Novolog Vial) 35 units SQ TIDAC [facility] Lamotrigine (Lamictal -) 75 mg PO BID [facility] Lisinopril (Prinivil) 20 mg PO DAILY [facility] Loperamide HCl (Imodium -) 2 mg PO QID PRN PRN Reason: DIARRHEA Metoprolol Succinate (Toprol Xl -) 25 mg PO DAILY [facility] Pantoprazole Sodium (Protonix -) 40 mg PO DAILY [facility] Pramipexole Dihydrochloride (Mirapex -) 1 mg PO BID SHAUN Silver Sulfadiazine (Silvadene -) 1 applic TP DAILY [facility] Simethicone (Mylicon -) 80 mg PO QID PRN PRN Reason: GAS Tiotropium [place] (Spiriva Respimat) 2 puff IH DAILY [facility] Topiramate (Topamax -) 50 mg PO BID [facility] Zolpidem Tartrate (Ambien -) 10 mg PO HS PRN PRN Reason: AGITATION - Objective Vital Signs: Vital Signs Temperature 98.6 F 02/25/20 06:40 Pulse Rate 99 H 02/25/20 06:40 Respiratory Rate 22 H 02/25/20 06:40 Blood Pressure 129/68 02/25/20 06:40 O2 Sat by Pulse Oximetry (%) 98 02/25/20 06:40 Constitutional: Yes: No Distress, Calm, Obese Eyes: Yes: WNL, Conjunctiva Clear HENT: Yes: WNL, Atraumatic, Normocephalic Neck: Yes: Supple, Trachea Midline, Lymphadenopathy Cardiovascular: Yes: WNL, Regular Rate and Rhythm Respiratory: Yes: WNL, Regular, CTA Bilaterally Gastrointestinal: Yes: Normal Bowel Sounds, Soft, Abdomen, Obese, Tenderness (generalized) ...Rectal Exam: Yes: Deferred Genitourinary: Yes: WNL Breast(s): Yes: WNL Musculoskeletal: Yes: WNL Extremities: Yes: WNL Edema: No Peripheral Pulses WNL: Yes Peripheral Pulses: Left Radial: 2+, Right Radial: 2+, Left Doralis Pedis: 2+, Right Dorsalis Pedis: 2+, Left Femoral: 2+, Right Femoral: 2+ Integumentary: Yes: WNL Neurological: Yes: WNL, Alert, Oriented ...Motor Strength: WNL Psychiatric: Yes: WNL Labs: CBC, BMP 02/25/20 05:58 02/25/20 05:58 INR, PTT INR 1.43 (0.83-1.09) H 02/24/20 14:00 - ....Imaging Chest X-ray: Image Reviewed (no effusion/infiltrates) Cat Scan: Report Reviewed Ultrasound: Report Reviewed (TVUS) Other: Pending, Other (lymph node bx) Problem List - Problems (1) Prophylactic measure Assessment/Plan: FEN Fluids: poor PO intake r/t n/v Electrolytes: monitor & replete as needed Nutrition: npo past mn DVT high risk with recent PEs prodaxa on hold for impeding bx in am heparin gtt Dispo Maintain as inpatient full code discharge planning Code(s): Z29.9 - ENCOUNTER FOR PROPHYLACTIC MEASURES, UNSPECIFIED (2) HLD (hyperlipidemia) Assessment/Plan: low fat/cholertserol diet Code(s): E78.5 - HYPERLIPIDEMIA, UNSPECIFIED (3) CVA (cerebral vascular accident) Assessment/Plan: no residuals PT fall precautions Code(s): I63.9 - CEREBRAL INFARCTION, UNSPECIFIED (4) COPD (chronic obstructive pulmonary disease) Assessment/Plan: no O2 needed c/w spiriva, flonase duo nebs Code(s): J44.9 - CHRONIC OBSTRUCTIVE PULMONARY DISEASE, UNSPECIFIED (5) Asthma Assessment/Plan: duonebs prn Code(s): J45.909 - UNSPECIFIED ASTHMA, UNCOMPLICATED (6) Chronic pain Assessment/Plan: chronuic back pain c/w roxicodone, gabapentin PT Code(s): G89.29 - OTHER CHRONIC PAIN (7) Pulmonary embolism, bilateral Assessment/Plan: presumed based on findings on last admission not able to perform CTA d/t dye allergy VQ scan interminate c/w pradaxa Code(s): I26.99 - OTHER PULMONARY EMBOLISM WITHOUT ACUTE COR PULMONALE (8) Anemia Assessment/Plan: monitor cbc hgb 9.4 c/w FeSo4 FOBT pending iron studies sent no signs of overt bleed GI to see Code(s): D64.9 - ANEMIA, UNSPECIFIED (9) Diabetes Assessment/Plan: BGM AC/HS with novolog sliding scale diabetic diet Code(s): E11.9 - TYPE 2 DIABETES MELLITUS WITHOUT COMPLICATIONS (10) Epigastric abdominal pain Assessment/Plan: CT abd pelvis: 10X7 cm midline /Lt paramedian paraumbillical hernia with mild mesenteric edema noted in left paramedian aspect with subq edema along pelvic wall Lt>Rt. 9 X 8 X 8cm noncalcified structure in Lt-> mid upper pelvis possible adnexal cyst, mesenteric soft tissue stranding, 3.[address], left paraaortic retroperitoneal LN's, splenomegaly (15cm), 0.4 cm non-obstructive Lt renal lower pole calculus, diffuse hepatic steatosis with hepatomegaly shown on abd sono as well, possbile carcinomatosis and TVUS showing 10X 4 X 8 cm nonspecific left adnexal cyst, 2.7 CM rt ovarian cyst, no torsion. resolving advance diet as tolerated Code(s): R10.13 - EPIGASTRIC PAIN (11) Bipolar disorder Assessment/Plan: c/w lamictal c/w prozac Code(s): F31.9 - BIPOLAR DISORDER, UNSPECIFIED Qualifiers: (12) HTN (hypertension) Assessment/Plan: normotensive c/w lasix, lisinipril, metoprolol Code(s): I10 - ESSENTIAL (PRIMARY) HYPERTENSION Qualifiers: Hypertension type: essential hypertension Qualified Code(s): I10 - Essential (primary) hypertension (13) History of stroke Code(s): Z86.73 - PRSNL HX OF TIA (TIA), AND CEREB INFRC W/O RESID DEFICITS (14) Obesity, Class III, BMI 40-49.9 (morbid obesity) Assessment/Plan: counseled on weight loss Code(s): E66.01 - MORBID (SEVERE) OBESITY DUE TO EXCESS CALORIES (15) Suspected COVID-19 virus infection Assessment/Plan: COVID Suspicion low On RA strict airborne/droplet precautions until resulted Code(s): Z20.828 - CONTACT W AND EXPOSURE TO OTH VIRAL COMMUNICABLE DISEASES (16) Lymphadenopathy Assessment/Plan: Onc consulted for abd carcinomatosis or ? ovarian malignancy w/u given diffuse lymphadenopathy on imaging as listed above CA 125 pending Code(s): R59.1 - GENERALIZED ENLARGED LYMPH NODES (17) Hepatic steatosis Assessment/Plan: MOSES likely 2/2 dietary habits and morbid obesity, dietary adjustment re commended to patient Code(s): K76.0 - FATTY (CHANGE OF) LIVER, NOT ELSEWHERE CLASSIFIED (18) Ovarian mass, left Assessment/Plan: CT scan and TVUS reviewed, imaging characteristics are concerning for possible malignancy- most likely ovarian plan for lymp node bx f/u with chief of staff doctor as out pt Code(s): N83.8 - OTH NONINFLAMMATORY DISORD OF OVARY, FALLOP AND BROAD LIGMT Visit type - Emergency Visit Emergency Visit: Yes ED Registration Date: 02/24/20 Care time: The patient presented to the Emergency Department on the above date and was hospitalized for further evaluation of their emergent condition. - New Patient This patient is new to me today: Yes Date on this admission: 02/27/20 - Critical Care Critical Care patient: No - Discharge Referral Referred to [facility] Med P.C.: No
--- NOTE | 2020-02-25 08:16 | CONSULT ---
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 No VB/discharge. No fevers/chills. LMP 7/3- light in nature. Regular cycles still. No IMB. No known history of fibroids/cysts. 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: CVA, Seizure, TIA Cardio/Vascular: Yes: CAD, HTN, Hyperlipdemia Pulmonary: Yes: Sleep Apnea Gastrointestinal: Yes: Other Hepatobiliary: Yes: Hepatitis C ...LMP: 10/27/17 Infectious Disease: Yes: Other (Hep C) Psych: Yes: Anxiety, Bipolar Musculoskeletal: Yes: Chronic low back pain Endocrine: Yes: Diabetes Mellitus - Past Surgical History Past Surgical History: Yes: , Hernia Repair Additional Surgical History: Bilateral Tubal Ligation - Alcohol/Substance Use Hx Alcohol Use: No - Smoking History Smoking history: Never smoked Have you smoked in the past 12 months: No If you are a former smoker, when did you quit?: 2012 - Social History Usual Living Arrangement: Alone ADL: Independent History of Recent Travel: No Home Medications - Allergies Allergies/Adverse Reactions: Allergies Allergy/AdvReac Type Severity Reaction Status Date / Time enoxaparin [From Lovenox] Allergy Intermediate Rash Verified 02/24/20 13:53 Iodinated Contrast Media Allergy Intermediate Itching Verified 02/24/20 13:53 [Iodinated Contrast Media - IV Dye] azithromycin AdvReac Intermediate Itching Verified 02/24/20 13:53 - Home Medications Home Medications: Ambulatory Orders Fluoxetine HCl [Prozac -] 40 mg PO AM 09/15/14 Albuterol Sulfate Inhaler - [Ventolin HFA Inhaler -] 1 - 2 inh PO QID PRN 03/15/16 clonazePAM [Klonopin -] 0.5 mg PO BID 05/12/17 Loratadine [Claritin] 10 mg PO DAILY PRN 09/11/17 Furosemide [Lasix -] 40 mg PO DAILY 04/06/18 Gabapentin [Neurontin] 800 mg PO TID 08/02/18 Lisinopril [Prinivil] 20 mg PO DAILY 09/28/18 Omeprazole 40 mg PO DAILY 02/21/19 Pramipexole Di-HCl [Mirapex] 1 mg PO BID 05/01/19 Lamotrigine [Lamictal -] 75 mg PO BID 09/05/19 Ergocalciferol (Vitamin D2) [Vitamin D2] 50,000 unit PO Q7D #5 capsule 12/06/19 Cyanocobalamin Vit B-12 Inj. [Vitamin B12 Injection -] 1,000 mcg IJ WEEKLY 01/16/20 Fluticasone Propionate [Flovent Hfa] 2 puff IH BID 01/16/20 Insulin Lispro [Humalog] 35 unit SQ TID 01/16/20 Meloxicam 15 mg PO DAILY 01/16/20 Sitagliptin Phos/Metformin HCl [Janumet Xr 50-1,000 mg Tablet] 1 tab PO BID 01/16/20 Sumatriptan Succinate [Imitrex -] 25 mg PO PRN PRN 01/16/20 Dabigatran Etexilate Mesylate [Pradaxa -] 150 mg PO BID #30 capsule 02/05/20 Albuterol Sulfate [Proair Hfa] 8.5 gm IH Q4H 02/24/20 Bacitracin Zinc 1 gm TP DAILY 02/24/20 Cephalexin [Keflex] 500 mg PO BID 02/24/20 Ferrous Sulfate 325 mg PO DAILY 02/24/20 Fluticasone Prop 0.05% Nasal [Flonase -] 1 spray NS DAILY 02/24/20 Folic Acid - 4 mg PO DAILY 02/24/20 Hydrocodone/Acetaminophen [[place] 10-325 Tablet] 1 each PO BID MDD 3 02/24/20 Insulin Lispro Protamin/Lispro [Humalog Mix 50-50 Kwikpen] 0 unit SQ ASDIR 02/24/20 Loperamide HCl [Loperamide] 2 mg PO QID PRN 02/24/20 Loratadine [Claritin] 10 mg PO DAILY 02/24/20 Metoprolol Succinate 25 mg PO DAILY 02/24/20 Naproxen Sodium [Naproxen Sodium ER] 500 mg PO BID PRN 02/24/20 Olopatadine HCl 5 ml OP BID 02/24/20 Omeprazole 40 mg PO DAILY 02/24/20 Semaglutide [Ozempic] 1 mg SQ ASDIR 02/24/20 Silver Sulfadiazine [Silvadene] 20 gm TP DAILY 02/24/20 Simethicone [Gas Relief 80] 80 mg PO QID PRN 02/24/20 Tiotropium [place] [Spiriva] 18 mcg IH DAILY 02/24/20 Topiramate 50 mg PO BID 02/24/20 Zolpidem Tartrate [Ambien] 10 mg PO HS 02/24/20 Review of Systems - Review of Systems Constitutional: reports: No Symptoms Gastrointestinal: reports: Abdominal Pain, Vomiting Physical Exam Vital Signs: Vital Signs Temperature 98.6 F 02/25/20 06:40 Pulse Rate 99 H 02/25/20 06:40 Respiratory Rate 22 H 02/25/20 06:40 Blood Pressure 129/68 02/25/20 06:40 O2 Sat by Pulse Oximetry (%) 98 02/25/20 06:40 Constitutional: Yes: Well Nourished, No Distress, Calm Labs: CBC, BMP 02/25/20 05:58 02/25/20 05:58 Imaging - Results Cat Scan: Report Reviewed Ultrasound: Report Reviewed Assessment/Plan 54yo here with abdominal pain, new L ovarian cyst on imaging Admitted to Medicine Service CT scan and TVUS reviewed, imaging characteristics are concerning for possible malignancy- most likely ovarian Spoke with ER resident overnight, CA-125 recommended and ordered; labs pending this morning No in house/immediate intervention needed at this time as more information (CA- 125) must be obtained Can follow up as an outpatient with her SURGICAL SERVICES ASSISTANT at [facility] Care for further management and then referral for SURGICAL SERVICES ASSISTANT ONC at [facility] from there; pt is not a surgical candidate here given her habitus and significant co-morbidities making her anesthesia risk quite high, in addition to her history DVT/PE history and anti-coagulation All questions answered; pt will follow up with OBGYN as an outpatient once discharged home Tobias Flores MD
--- NOTE | 2020-02-25 09:16 | EKG ---
Test Reason : Blood Pressure : / mmHG Vent. Rate : 112 BPM Atrial Rate : 112 BPM P-R Int : 140 ms QRS Dur : 088 ms QT Int : 350 ms P-R-T Axes : 056 -33 034 degrees QTc Int : 477 ms SINUS TACHYCARDIA LEFT AXIS DEVIATION MINIMAL VOLTAGE CRITERIA FOR LVH, MAY BE NORMAL VARIANT ABNORMAL ECG WHEN COMPARED WITH ECG OF 15-JAN-2020 11:21, NO SIGNIFICANT CHANGE WAS FOUND Confirmed by MD JONY, KAMLESH ([id number]) on 02/25/2020 9:16:18 AM Referred By: Confirmed By:KAMLESH BORGES MD
--- NOTE | 2020-02-25 09:36 | CONSULT ---
Consultation: REQUESTING PROVIDER: Dr. Benjamin CONSULT REQUEST: We have been asked to medically evaluate this patient for lymphadenopathy. HISTORY OF PRESENT ILLNESS: Pt. is a 54 y.o. F w/ PMHx. 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 of Seizures, and recent diagnosis of b/l PE and DVT(currently on Pradaxa) presents with abdominal pain and nausea and vomiting. Pt. states that the abdominal pain in the top has been going on ever since she started on P radaxa on February 04. (Pt. was unable to tolerate Lovenox or Xarelto because of developing rash). Pt. endorses non-bloody nausea and vomiting over the last week. Pt. endorses diarrhea for about 2 weeks. Pt. endorses night sweats for 2 weeks despite having the AC and fan on high. Pt. endorses decreased PO intake because of decreased appetite since starting the Pradaxa. The act of eating makes the Pt. nauseous and vomit. Pt. endorses 4 pounds weight loss over the last 2 weeks. Pt. endorses a burning sensation along the middle of her chest that she says is not longer ameliorated with her omeprazole. Pt. endorses fevers at home from 99.6 to 101 over the last week with associated chills during the day that is different from the nightsweats. Pt. states that she has never had a colonoscopy. Pt. last had Mammogram 5 years ago that was negative and had always been. Pt. believes she had a Pap Smear yesterday in the ED, her prior Smear 5 years ago was negative and had always been. Pt. has not followed up with her prepress operator in 5 years. Pt. states her LMP was January 30 and last 2 days, which she states is the normal duration over several months. Pt. denies an blood in the urine or stool at any point. Pt. denies any blood in her emesis at any point. Pt. denies any black colored stool. Pt. endorses adherence to her medications despite her emesis. Pt. endorses smoking for since 15 y.o. 1 pack pe r day but quit 8 years ago. Pt. denies alcohol and drug use. Pt. endorses history of Stomach and esophageal cancers in her uncles however she was estranged from them and does not know further details. She believes an uncle may have had colon CA as well. Pt. endorses her sister dying from "many clots, including affecting her breathing" at 42 years old. Pt.'s father from EtoH abuse and NM at 75. Pt.s mother from renal complications of diabetes in 60s. 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 Pt. uses a walker for ambulation. Pt. endorse taking Percocet TID PRN for joint pains that is prescribed by her pain specialist. Pt. states she last took that medication the day before yesterday. REVIEW OF SYSTEMS: As above PHYSICAL EXAMINATION Vital Signs - 24 hr 02/24/20 02/24/20 02/24/20 13:08 15:05 15:43 Temperature 98.9 F Pulse Rate 102 H Pulse Rate [ 96 H Left Radial] Respiratory 17 22 H Rate Blood Pressure 126/62 Blood Pressure 120/70 [Right Arm] O2 Sat by Pulse 99 94 L 94 L Oximetry (%) 02/24/20 02/25/20 02/25/20 20:12 04:10 06:40 Temperature 98.6 F Pulse Rate Pulse Rate [ 105 H 99 H Left Radial] Respiratory 24 H 22 H Rate Blood Pressure Blood Pressure 115/62 129/68 [Right Arm] O2 Sat by Pulse 98 98 98 Oximetry (%) GENERAL: Awake, alert, and fully oriented, in no acute distress. HEAD: Normal with no signs of trauma. EYES: Extraocular movements intact, sclera anicteric, conjunctiva clear. EARS, NOSE, THROAT: Ears normal, nares patent, oropharynx clear without exudates. Moist mucous membranes. NECK: Normal range of motion, supple without lymphadenopathy, JVD, or masses. LUNGS: Breath sounds equal, clear to auscultation bilaterally. No wheezes, and no crackles. No accessory muscle use. HEART: tachycardic regular rate and rhythm, normal S1 and S2 without murmur ABDOMEN: Soft, epigastric tenderness, protuberant but not distended, normoactive bowel sounds, no guarding, no rebound MUSCULOSKELETAL: No CVA tenderness. UPPER EXTREMITIES: warm, well-perfused. No cyanosis. No clubbing. No peripheral edema. LOWER EXTREMITIES: 2+ dorsal pedal pulses, warm, well-perfused. No calf tenderness. Trace pitting edema. NEUROLOGICAL: Moves all extremities. Normal speech. Gait not assessed PSYCHIATRIC: Cooperative. Good eye contact. Anxious. SKIN: Warm, dry, normal turgor Laboratory Results - last 24 hr 02/24/20 02/24/20 02/24/20 14:00 14:00 14:00 WBC 11.5 H RBC 3.71 Hgb 9.7 L Hct 29.8 L MCV 80.2 MCH 26.2 MCHC 32.7 RDW 14.6 Plt Count 414 D MPV 8.5 Absolute Neuts (auto) 9.2 H Neutrophils % 79.5 Lymphocytes % 11.1 D Monocytes % 6.3 Eosinophils % 2.3 Basophils % 0.8 Nucleated RBC % 0 PT with INR 16.90 H INR 1.43 H PTT (Actin FS) 47.3 H D-Dimer Anticoagulation Therapy Puncture Site Patient Temperature ABG pH ABG pCO2 ABG pO2 ABG HCO3 ABG O2 Sat (Measured) ABG O2 Content ABG Base Excess Dharmesh Test Patient On Oxygen O2 Delivery Device Oxygen Flow Rate Vent Mode Vent Rate Mechanical Rate PEEP Pressure Support Vent Sodium Potassium Chloride Carbon Dioxide Anion Gap BUN Creatinine Est GFR (CKD-EPI)AfAm Est GFR (CKD-EPI)NonAf POC Glucometer Random Glucose Lactic Acid Calcium Phosphorus Magnesium Iron TIBC Iron Saturation Unsaturated IBC Ferritin Total Bilirubin AST ALT Alkaline Phosphatase Creatine Kinase Creatine Kinase Index CK-MB (CK-2) Troponin I Total Protein Albumin Lipase Serum , Qual Negative Urine Color Urine Appearance Urine pH Ur Specific [place] Urine Protein Urine Glucose (UA) Urine Ketones Urine Blood Urine Nitrite Urine Bilirubin Urine Urobilinogen Ur Leukocyte Esterase Urine WBC (Auto) Urine RBC (Auto) Urine Casts (Auto) U Epithel Cells (Auto) Urine Bacteria (Auto) 02/24/20 02/24/20 02/24/20 14:00 14:00 14:30 WBC RBC Hgb Hct MCV MCH MCHC RDW Plt Count MPV Absolute Neuts (auto) Neutrophils % Lymphocytes % Monocytes % Eosinophils % Basophils % Nucleated RBC % PT with INR INR PTT (Actin FS) D-Dimer Anticoagulation Therapy Puncture Site Patient Temperature ABG pH ABG pCO2 ABG pO2 ABG HCO3 ABG O2 Sat (Measured) ABG O2 Content ABG Base Excess Dharmesh Test Patient On Oxygen O2 Delivery Device Oxygen Flow Rate Vent Mode Vent Rate Mechanical Rate PEEP Pressure Support Vent Sodium 133 L Potassium 4.7 Chloride 98 Carbon Dioxide 24 Anion Gap 11 BUN 6.3 L Creatinine 0.9 Est GFR (CKD-EPI)AfAm 85.20 Est GFR (CKD-EPI)NonAf 73.51 POC Glucometer Random Glucose 244 H Lactic Acid 1.1 Calcium 8.6 Phosphorus Magnesium Iron TIBC Iron Saturation Unsaturated IBC Ferritin Total Bilirubin 0.4 AST 32 ALT 28 Alkaline Phosphatase 132 H Creatine Kinase 163 Creatine Kinase Index 1.2 CK-MB (CK-2) 2.1 Troponin I < 0.02 Total Protein 7.0 Albumin 2.6 L Lipase 115 Serum , Qual Urine Color Yellow Urine Appearance Clear Urine pH 7.0 Ur Specific [place] 1.010 Urine Protein 1+ H Urine Glucose (UA) Trace Urine Ketones Negative Urine Blood 2+ H Urine Nitrite Negative Urine Bilirubin Negative Urine Urobilinogen 0.2 Ur Leukocyte Esterase Trace Urine WBC (Auto) 25 Urine RBC (Auto) 68.3 Urine Casts (Auto) 0 U Epithel Cells (Auto) 23 Urine Bacteria (Auto) 220 02/24/20 02/24/20 02/25/20 20:02 22:15 00:00 WBC RBC Hgb Hct MCV MCH MCHC RDW Plt Count MPV Absolute Neuts (auto) Neutrophils % Lymphocytes % Monocytes % Eosinophils % Basophils % Nucleated RBC % PT with INR INR PTT (Actin FS) D-Dimer Anticoagulation Therapy Puncture Site Patient Temperature ABG pH ABG pCO2 ABG pO2 ABG HCO3 ABG O2 Sat (Measured) ABG O2 Content ABG Base Excess Dharmesh Test Patient On Oxygen O2 Delivery Device Oxygen Flow Rate Vent Mode Vent Rate Mechanical Rate PEEP Pressure Support Vent Sodium Potassium Chloride Carbon Dioxide Anion Gap BUN Creatinine Est GFR (CKD-EPI)AfAm Est GFR (CKD-EPI)NonAf POC Glucometer 240 Random Glucose Lactic Acid Calcium Phosphorus Magnesium Iron TIBC Iron Saturation Unsaturated IBC Ferritin Total Bilirubin AST ALT Alkaline Phosphatase Creatine Kinase Creatine Kinase Index CK-MB (CK-2) Troponin I < 0.02 Total Protein Albumin Lipase Serum , Qual Urine Color Yellow Urine Appearance Clear Urine pH 7.0 Ur Specific [place] 1.016 Urine Protein 1+ H Urine Glucose (UA) Trace Urine Ketones 1+ H Urine Blood 2+ H Urine Nitrite Negative Urine Bilirubin Negative Urine Urobilinogen 1.0 Ur Leukocyte Esterase Negative Urine WBC (Auto) 11 Urine RBC (Auto) 135 Urine Casts (Auto) 0 U Epithel Cells (Auto) 23 Urine Bacteria (Auto) 16 02/25/20 02/25/20 02/25/20 02:50 03:02 05:58 WBC 10.0 RBC 3.62 Hgb 9.7 L Hct 29.1 L MCV 80.4 MCH 26.7 MCHC 33.2 RDW 15.2 Plt Count 424 MPV 8.3 Absolute Neuts (auto) 7.8 Neutrophils % 78.0 Lymphocytes % 11.7 Monocytes % 7.1 Eosinophils % 2.9 Basophils % 0.3 Nucleated RBC % 0 PT with INR INR PTT (Actin FS) D-Dimer 5340 H Anticoagulation Therapy No Result Required. Puncture Site Left radial Patient Temperature No Result Required. ABG pH 7.438 ABG pCO2 34.40 L ABG pO2 88.3 ABG HCO3 22.7 ABG O2 Sat (Measured) 97.1 ABG O2 Content No Result Required. ABG Base Excess -1.0 Dharmesh Test Positive Patient On Oxygen No O2 Delivery Device Room air Oxygen Flow Rate 21% Vent Mode No Result Required. Vent Rate No Result Required. Mechanical Rate No Result Required. PEEP No Result Required. Pressure Support Vent No Result Required. Sodium Potassium Chloride Carbon Dioxide Anion Gap BUN Creatinine Est GFR (CKD-EPI)AfAm Est GFR (CKD-EPI)NonAf POC Glucometer Random Glucose Lactic Acid Calcium Phosphorus Magnesium Iron TIBC Iron Saturation Unsaturated IBC Ferritin Total Bilirubin AST ALT Alkaline Phosphatase Creatine Kinase Creatine Kinase Index CK-MB (CK-2) Troponin I Total Protein Albumin Lipase Serum , Qual Urine Color Urine Appearance Urine pH Ur Specific [place] Urine Protein Urine Glucose (UA) Urine Ketones Urine Blood Urine Nitrite Urine Bilirubin Urine Urobilinogen Ur Leukocyte Esterase Urine WBC (Auto) Urine RBC (Auto) Urine Casts (Auto) U Epithel Cells (Auto) Urine Bacteria (Auto) 02/25/20 02/25/20 02/25/20 05:58 05:58 09:02 WBC RBC Hgb Hct MCV MCH MCHC RDW Plt Count MPV Absolute Neuts (auto) Neutrophils % Lymphocytes % Monocytes % Eosinophils % Basophils % Nucleated RBC % PT with INR INR PTT (Actin FS) D-Dimer Anticoagulation Therapy Puncture Site Patient Temperature ABG pH ABG pCO2 ABG pO2 ABG HCO3 ABG O2 Sat (Measured) ABG O2 Content ABG Base Excess Dharmesh Test Patient On Oxygen O2 Delivery Device Oxygen Flow Rate Vent Mode Vent Rate Mechanical Rate PEEP Pressure Support Vent Sodium 135 L Potassium 4.1 Chloride 101 Carbon Dioxide 21 Anion Gap 13 BUN 6.9 L Creatinine 0.8 Est GFR (CKD-EPI)AfAm 98.24 Est GFR (CKD-EPI)NonAf 84.76 POC Glucometer 314 Random Glucose 285 H Lactic Acid Calcium 8.3 L Phosphorus 3.0 Magnesium 2.4 Iron 23 L TIBC 284 Iron Saturation 8 L Unsaturated IBC 261 Ferritin 191.9 Total Bilirubin 0.5 AST 25 ALT 25 Alkaline Phosphatase 131 H Creatine Kinase Creatine Kinase Index CK-MB (CK-2) Troponin I Total Protein 7.1 Albumin 2.6 L Lipase Serum , Qual Urine Color Urine Appearance Urine pH Ur Specific [place] Urine Protein Urine Glucose (UA) Urine Ketones Urine Blood Urine Nitrite Urine Bilirubin Urine Urobilinogen Ur Leukocyte Esterase Urine WBC (Auto) Urine RBC (Auto) Urine Casts (Auto) U Epithel Cells (Auto) Urine Bacteria (Auto) Active Medications Generic Name Dose Route Start Last Admin Trade Name Freq PRN Reason Stop Dose Admin Bacitracin 1 applic 02/25/20 10:00 Bacitracin - TP DAILY SHAUN Dabigatran 150 mg 02/25/20 10:00 Pradaxa - PO BID SHAUN Ergocalciferol 50,000 unit 02/25/20 10:00 Drisdol - PO Q7D@1000 SHAUN Ferrous Sulfate 325 mg 02/25/20 10:00 Feosol - PO DAILY SHAUN Fluoxetine HCl 40 mg 02/25/20 07:00 Prozac - PO AM SHAUN Fluticasone Propionate 1 spray 02/25/20 10:00 Flonase - NS DAILY SHAUN Folic Acid 4 mg 02/25/20 10:00 Folic Acid - PO DAILY SHAUN Furosemide 40 mg 02/25/20 10:00 Lasix - PO DAILY SHAUN Gabapentin 800 mg 02/25/20 04:33 02/25/20 06:37 Neurontin - PO 800 mg TID SHAUN Administration Doxycycline Hyclate 100 mg/ 100 mls @ 100 mls/hr 02/25/20 10:00 Dextrose IVPB BID SHAUN Sodium Chloride 1,000 mls @ 75 mls/hr 02/25/20 01:45 02/25/20 03:48 Normal Saline - IV 75 mls/hr ASDIR SHAUN Administration Ceftriaxone Sodium 1 gm/ 50 mls @ 100 mls/hr 02/25/20 10:00 Dextrose IVPB DAILY SHAUN Insulin Aspart 1 vial 02/25/20 07:00 Novolog Vial Sliding Scale - SQ ACHS SHAUN Protocol Insulin Aspart 35 units 02/25/20 07:00 Novolog Vial SQ TIDAC SHAUN Lamotrigine 75 mg 02/25/20 04:33 Lamictal - PO BID SHAUN Lisinopril 20 mg 02/25/20 10:00 Prinivil PO DAILY SHAUN Loperamide HCl 2 mg 02/25/20 01:14 Imodium - PO QID PRN DIARRHEA Metoprolol Succinate 25 mg 02/25/20 10:00 Toprol Xl - PO DAILY SHAUN Pantoprazole Sodium 40 mg 02/25/20 01:19 Protonix - PO DAILY SHAUN Pramipexole Dihydrochloride 1 mg 02/25/20 10:00 Mirapex - PO BID SHAUN Silver Sulfadiazine 1 applic 02/25/20 10:00 Silvadene - TP DAILY SHAUN Simethicone 80 mg 02/25/20 01:14 Mylicon - PO QID PRN GAS Tiotropium [place] 2 puff 02/25/20 10:00 Spiriva Respimat IH DAILY SHAUN Topiramate 50 mg 02/25/20 10:00 Topamax - PO BID SHAUN Zolpidem Tartrate 10 mg 02/25/20 01:28 Ambien - PO HS PRN AGITATION ASSESSMENT/PLAN: Pt. is a 54 y.o. F w/ PMHx. 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 of Seizures, and recent diagnosis of b/l PE and DVT(currently on Pradxa) presents with abdominal pain and nausea and vomiting. We have been called to assess Pt. for lymphadenopathy noted on abdominal exam. #Epigastric Abdominal Pain CT AP showed paraumbilical hernia, 9x9x8 cm mid-upper pelvic L. ?adnexal cyst(complex?) with mesesnteric soft tissue stranding, 3.[address]inal enlarged LN, splenomegaly(15 cm no interval change since last year), diffuse hepatic steatosis with hepatomegaly TVUS: 10x9x8 cm L. adnexal cyst with small amount of internal debris; thickedned endometrium (7mm), 2.7 cm R adnexal cyst History strongly suspicious for Pradaxa associated gastritis will need to switch to Warfarin given that Pt. failed Lovenox and xarelto Cannot r/o malignancy/carcinomatois given B-Symptoms and strong family Hx. 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 Dispo: We will continue to follow the patient. Thank you for this consultative opportunity. Visit type - Emergency Visit Emergency Visit: Yes ED Registration Date: 02/24/20 Care time: The patient presented to the Emergency Department on the above date and was hospitalized for further evaluation of their emergent condition. - New Patient This patient is new to me today: Yes Date on this admission: 02/25/20 - Critical Care Critical Care patient: No ATTENDING PHYSICIAN STATEMENT I saw and evaluated the patient. I reviewed the resident's note and discussed the case with the resident. I agree with the resident's findings and plan as documented. SUBJECTIVE: OBJECTIVE: ASSESSMENT AND PLAN:
[2020-02-25] MEDS: INSULIN SLIDING SCALE (NOVOLOG) 1 VIAL SQ SCH ×4 (09:57→22:59)
[2020-02-25] MEDS: INSULIN (NOVOLOG) ASPART 100 UNITS/ML 10ML VIAL SQ SCH ×2 (09:57→14:21)
[2020-02-25] MEDS: BACITRACIN 15 GM TUBE TOPICAL OINTMENT TP SCH (09:59)
[2020-02-25] MEDS: FLUoxetine HCL 20 MG CAPSULE PO SCH (09:59)
[2020-02-25] MEDS ORDERED: lamoTRIgine 25 MG TABLET PO SCH (10:00)
[2020-02-25] MEDS ORDERED: DABIGATRAN ETEXILATE MESYLATE 150 MG CAPSULE PO SCH (10:00)
[2020-02-25] MEDS ORDERED: PATIENT'S OWN MEDICATION (NON-FORMULARY) (Meloxicam [Meloxicam] 15 MG) PO SCH (10:00)
[2020-02-25] MEDS ORDERED: ERGOCALCIFEROL (VIT D2) 50,000 UNIT (1.25 MG) CAPSULE PO SCH (10:00)
[2020-02-25] MEDS ORDERED: PATIENT'S OWN MEDICATION (NON-FORMULARY) (Omeprazole [Omeprazole] 40 MG) PO SCH (10:00)
[2020-02-25] MEDS ORDERED: FLUTICASONE PROPIONATE IH SCH (10:00)
[2020-02-25] MEDS: FLUTICASONE PROP 0.05% 16 GM NASAL SPRAY NS SCH (10:01)
[2020-02-25] MEDS: PRAMIPEXOLE DIHYDROCHLORIDE 1 MG TABLET PO SCH ×2 (10:02→23:00)
[2020-02-25] MEDS: FUROSEMIDE 40 MG TABLET (FP) PO SCH (10:05)
[2020-02-25] MEDS: FERROUS SO4 325 MG TABLET (FP) PO SCH (10:05)
[2020-02-25] MEDS: LISINOPRIL 20 MG TABLET (FP) PO SCH (10:05)
[2020-02-25] MEDS: SILVER SULFADIAZINE 1% TOP CREAM 50 GM JAR TP SCH (10:05)
[2020-02-25] MEDS: lamoTRIgine 25 MG TABLET PO SCH ×2 (10:05→23:00)
[2020-02-25] MEDS: metoPROLOL SUCCINATE 25 MG TAB.SR.24H (FP) PO SCH (10:05)
[2020-02-25] MEDS: FOLIC ACID 1 MG TABLET (FP) PO SCH (10:05)
[2020-02-25] MEDS: TOPIRAMATE 25 MG TABLET PO SCH ×2 (10:05→23:00)
[2020-02-25] MEDS: PANTOPRAZOLE 40 MG TABLET PO SCH (10:05)
[2020-02-25] MEDS: DOXYCYCLINE INJECTION 100 MG in DEXTROSE 5%-WATER - 100 ML IVPB SCH ×2 (10:06→23:01)
[2020-02-25] MEDS ORDERED: SILVER SULFADIAZINE 1% TOP CREAM 50 GM JAR TP ONE (10:14)
[2020-02-25] MEDS ORDERED: FOLIC ACID 1 MG TABLET (FP) ONE (10:15)
[2020-02-25] MEDS ORDERED: LISINOPRIL 20 MG TABLET (FP) ONE (10:15)
[2020-02-25] MEDS ORDERED: PANTOPRAZOLE 40 MG TABLET ONE (10:15)
[2020-02-25] MEDS ORDERED: metoPROLOL SUCCINATE 25 MG TAB.SR.24H (FP) ONE (10:15)
[2020-02-25] MEDS ORDERED: FUROSEMIDE 40 MG TABLET (FP) ONE (10:15)
[2020-02-25] MEDS ORDERED: CEFTRIAXONE 1 GM/50 ML BAG ONE (10:16)
[2020-02-25] MEDS ORDERED: FERROUS SO4 325 MG TABLET (FP) ONE (10:16)
[2020-02-25] MEDS ORDERED: lamoTRIgine 25 MG TABLET ONE (10:16)
[2020-02-25] MEDS: TIOTROPIUM BROMIDE 2.5 MCG (SPIRIVA) RESPIMAT INHALER IH SCH (11:12)
[2020-02-25] MEDS: CEFTRIAXONE 1 GM in DEXTROSE 5%-WATER - 50 ML IVPB SCH (11:13)
--- NOTE | 2020-02-25 14:51 | CON.GI ---
Consult Consult Specialty:: GI - History of Present Illness History of Present Illness: Pt is a 54 yo F, with PMH of HTN, HLD, DM, CVA, COPD, OA with chronic pain, bipolar disorder, and recently diagnosed b/l PE and DVTs (01/18/2020, currently on pradaxa 150 mg BID) presenting today with abdominal pain that started 1 week ago. Reports diffuse, sharp pain. No radiation. Reports vomiting NBNB x4 for the past 4 days. No diarrhea/blood in the stool. I saw the patient in the ED,she denies abdominal pain and diarrhea. - Past Medical History B[employer]: Yes: CVA, Seizure, TIA Cardio/Vascular: Yes: CAD, HTN, Hyperlipdemia Pulmonary: Yes: Sleep Apnea Gastrointestinal: Yes: Other Hepatobiliary: Yes: Hepatitis C ...LMP: 10/27/17 Infectious Disease: Yes: Other (Hep C) Psych: Yes: Anxiety, Bipolar Musculoskeletal: Yes: Chronic low back pain Endocrine: Yes: Diabetes Mellitus - Past Surgical History Past Surgical History: Yes: , Hernia Repair Additional Surgical History: Bilateral Tubal Ligation - Alcohol/Substance Use Hx Alcohol Use: No - Smoking History Smoking history: Never smoked Have you smoked in the past 12 months: No If you are a former smoker, when did you quit?: 2012 - Social History Usual Living Arrangement: Alone ADL: Independent History of Recent Travel: No Home Medications - Allergies Allergies/Adverse Reactions: Allergies Allergy/AdvReac Type Severity Reaction Status Date / Time enoxaparin [From Lovenox] Allergy Intermediate Rash Verified 02/24/20 13:53 Iodinated Contrast Media Allergy Intermediate Itching Verified 02/24/20 13:53 [Iodinated Contrast Media - IV Dye] azithromycin AdvReac Intermediate Itching Verified 02/24/20 13:53 - Home Medications Home Medications: Ambulatory Orders Fluoxetine HCl [Prozac -] 40 mg PO AM 09/15/14 Albuterol Sulfate Inhaler - [Ventolin HFA Inhaler -] 1 - 2 inh PO QID PRN 03/15/16 clonazePAM [Klonopin -] 0.5 mg PO BID 05/12/17 Loratadine [Claritin] 10 mg PO DAILY PRN 09/11/17 Furosemide [Lasix -] 40 mg PO DAILY 04/06/18 Gabapentin [Neurontin] 800 mg PO TID 08/02/18 Lisinopril [Prinivil] 20 mg PO DAILY 09/28/18 Omeprazole 40 mg PO DAILY 02/21/19 Pramipexole Di-HCl [Mirapex] 1 mg PO BID 05/01/19 Lamotrigine [Lamictal -] 75 mg PO BID 09/05/19 Ergocalciferol (Vitamin D2) [Vitamin D2] 50,000 unit PO Q7D #5 capsule 12/06/19 Cyanocobalamin Vit B-12 Inj. [Vitamin B12 Injection -] 1,000 mcg IJ WEEKLY 01/16/20 Fluticasone Propionate [Flovent Hfa] 2 puff IH BID 01/16/20 Insulin Lispro [Humalog] 35 unit SQ TID 01/16/20 Meloxicam 15 mg PO DAILY 01/16/20 Sitagliptin Phos/Metformin HCl [Janumet Xr 50-1,000 mg Tablet] 1 tab PO BID 01/16/20 Sumatriptan Succinate [Imitrex -] 25 mg PO PRN PRN 01/16/20 Dabigatran Etexilate Mesylate [Pradaxa -] 150 mg PO BID #30 capsule 02/05/20 Albuterol Sulfate [Proair Hfa] 8.5 gm IH Q4H 02/24/20 Bacitracin Zinc 1 gm TP DAILY 02/24/20 Cephalexin [Keflex] 500 mg PO BID 02/24/20 Ferrous Sulfate 325 mg PO DAILY 02/24/20 Fluticasone Prop 0.05% Nasal [Flonase -] 1 spray NS DAILY 02/24/20 Folic Acid - 4 mg PO DAILY 02/24/20 Hydrocodone/Acetaminophen [[place] 10-325 Tablet] 1 each PO BID MDD 3 02/24/20 Insulin Lispro Protamin/Lispro [Humalog Mix 50-50 Kwikpen] 0 unit SQ ASDIR 02/24/20 Loperamide HCl [Loperamide] 2 mg PO QID PRN 02/24/20 Loratadine [Claritin] 10 mg PO DAILY 02/24/20 Metoprolol Succinate 25 mg PO DAILY 02/24/20 Naproxen Sodium [Naproxen Sodium ER] 500 mg PO BID PRN 02/24/20 Olopatadine HCl 5 ml OP BID 02/24/20 Omeprazole 40 mg PO DAILY 02/24/20 Semaglutide [Ozempic] 1 mg SQ ASDIR 02/24/20 Silver Sulfadiazine [Silvadene] 20 gm TP DAILY 02/24/20 Simethicone [Gas Relief 80] 80 mg PO QID PRN 02/24/20 Tiotropium [place] [Spiriva] 18 mcg IH DAILY 02/24/20 Topiramate 50 mg PO BID 02/24/20 Zolpidem Tartrate [Ambien] 10 mg PO HS 02/24/20 Physical Exam-GI Vital Signs: Vital Signs Temperature 98.2 F 02/25/20 14:17 Pulse Rate 101 H 02/25/20 14:17 Respiratory Rate 20 02/25/20 14:17 Blood Pressure 111/62 02/25/20 14:17 O2 Sat by Pulse Oximetry (%) 98 02/25/20 06:40 Constitutional: Yes: Other (Morbid obesity) Eyes: Yes: Conjunctiva Clear HENT: Yes: Atraumatic Neck: Yes: Supple, Tenderness Respiratory: Yes: CTA Bilaterally ...Palpate: Yes: Soft. No: Firm/Rigid, Guarding, Hepatomegaly, Mass, Pulsatile Mass, Splenomegaly, Tenderness, Tenderness, Epigastium Labs: CBC, BMP 02/25/20 05:58 02/25/20 05:58 INR, PTT INR 1.43 (0.83-1.09) H 02/24/20 14:00 CBCD WBC 10.0 K/mm3 (4.0-10.0) 02/25/20 05:58 RBC 3.62 M/mm3 (3.60-5.2) 02/25/20 05:58 Hgb 9.7 GM/dL (10.7-15.3) L 02/25/20 05:58 Hct 29.1 % (32.4-45.2) L 02/25/20 05:58 MCV 80.4 fl (80-96) 02/25/20 05:58 MCHC 33.2 g/dl (32.0-36.0) 02/25/20 05:58 RDW 15.2 % (11.6-15.6) 02/25/20 05:58 Plt Count 424 K/MM3 (134-434) 02/25/20 05:58 MPV 8.3 fl (7.5-11.1) 02/25/20 05:58 CMP Sodium 135 mmol/L (136-145) L 02/25/20 05:58 Potassium 4.1 mmol/L (3.5-5.1) 02/25/20 05:58 Chloride 101 mmol/L (98-107) 02/25/20 05:58 Carbon Dioxide 21 mmol/L (21-32) 02/25/20 05:58 Anion Gap 13 MMOL/L (8-16) 02/25/20 05:58 BUN 6.9 mg/dL (7-18) L 02/25/20 05:58 Creatinine 0.8 mg/dL (0.55-1.3) 02/25/20 05:58 Calcium 8.3 mg/dL (8.5-10.1) L 02/25/20 05:58 Total Bilirubin 0.5 mg/dL (0.2-1) 02/25/20 05:58 AST 25 U/L (15-37) 02/25/20 05:58 ALT 25 U/L (13-61) 02/25/20 05:58 Alkaline Phosphatase 131 U/L (45-117) H 02/25/20 05:58 Total Protein 7.1 g/dl (6.4-8.2) 02/25/20 05:58 Albumin 2.6 g/dl (3.4-5.0) L 02/25/20 05:58 Assessment/Plan Epigastric pain associated with nausea ,vomiting and anemia. Diferrential include peptic ulcer disease, gastritis and malignancy R> patient is high risk for EGD because of underlying medical problems. Will need UGIS stool guaiac od x 3 for colonoscopy Pantoprazole 40mg daily
[2020-02-25] MEDS: oxyCODONE HCL 5 MG TABLET PO PRN (16:06)
[2020-02-25] MEDS ORDERED: HEPARIN NA (PORCINE) 5,000 UNITS/ML 1ML VIAL IVPUSH PRN ×2 (16:50)
[2020-02-25] MEDS ORDERED: HEPARIN - 25,000 UNIT in SODIUM CHLORIDE 495 ML IV SCH (17:00)
[2020-02-25] MEDS ORDERED: PT OWN MED DRAWER 7, Y5N ONE ×2 (17:30→22:24)
[2020-02-25] MEDS ORDERED: PATIENT'S OWN MEDICATION (NON-FORMULARY) (Zolpidem Tartrate [Ambien] 10 MG) PO SCH (22:00)
[2020-02-26] MEDS ORDERED: ALBUTEROL SO4 0.083% IH SOL 2.5 MG/3 ML VIAL.NEB. NEB ONE (00:23)
[2020-02-26] MEDS: oxyCODONE HCL 5 MG TABLET PO PRN ×2 (01:29→16:35)
[2020-02-26] MEDS: SODIUM CHLORIDE 1,000 ML IV SCH ×3 (01:40→14:29)
[2020-02-26] MEDS: GABAPENTIN 400 MG CAPSULE PO SCH ×3 (07:20→22:01)
[2020-02-26] MEDS: FLUoxetine HCL 20 MG CAPSULE PO SCH (07:21)
[2020-02-26] MEDS: INSULIN SLIDING SCALE (NOVOLOG) 1 VIAL SQ SCH ×4 (07:25→22:05)
--- NOTE | 2020-02-26 07:59 | RAPID ---
Physical Examination Vital Signs: Vital Signs Temperature 98.6 F 02/25/20 22:51 Pulse Rate 98 H 02/25/20 22:51 Respiratory Rate 20 02/25/20 22:51 Blood Pressure 112/64 02/25/20 22:51 O2 Sat by Pulse Oximetry (%) 97 02/26/20 03:02 Constitutional: Yes: No Distress, Calm Eyes: Yes: WNL, Conjunctiva Clear, EOM Intact HENT: Yes: WNL, Atraumatic, Normocephalic Neck: Yes: WNL, Supple, Trachea Midline Cardiovascular: Yes: WNL, Regular Rate and Rhythm Respiratory: Yes: WNL, Regular, CTA Bilaterally Gastrointestinal: Yes: WNL, Normal Bowel Sounds, Soft, Abdomen, Obese ...Rectal Exam: Yes: Deferred Renal/: Yes: WNL Musculoskeletal: Yes: WNL Extremities: Yes: WNL Edema: No Peripheral Pulses WNL: Yes Peripheral Pulses: Left Radial: 2+, Right Radial: 2+, Left Doralis Pedis: 2+, Right Dorsalis Pedis: 2+, Left Femoral: 2+, Right Femoral: 2+ Integumentary: Yes: WNL Neurological: Yes: WNL, Alert, Oriented ...Motor Strength: WNL Psychiatric: Yes: WNL Labs: CBC, BMP 02/25/20 05:58 02/25/20 05:58 Rapid Response - Rapid Response Assessment: Rapid response called by RN for near syncopal episode . Pt was in BR on toilet and felt dizzy-sat back down and called for help. No prodromal symptoms. No seizure activity. Recalled entire event. No LOC, no fall noted. HR 86, BP 100/56, SPO@ 96. BS 270. TTE and cardotid dopplers ordered. Cardiology consult placed-seen by Dr Urias in past. Transfer to tele for monitoring. Pt for planned bx today with Dr Lafleur-notifies of event. Outcome: transfer to telemetry
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
[2020-02-26] MEDS: FUROSEMIDE 40 MG TABLET (FP) PO SCH (09:32)
[2020-02-26] MEDS: LISINOPRIL 20 MG TABLET (FP) PO SCH (09:33)
[2020-02-26] MEDS: metoPROLOL SUCCINATE 25 MG TAB.SR.24H (FP) PO SCH (09:34)
[2020-02-26] MEDS ORDERED: PT OWN MED DRAWER 7, Y5N ONE ×3 (09:55→17:24)
[2020-02-26] MEDS ORDERED: cefTRIAXone SODIUM 1 GM VIAL ONE (09:55)
[2020-02-26] MEDS ORDERED: DEXTROSE 5%-WATER - 50 ML IVPB ONE (09:55)
[2020-02-26] MEDS: PANTOPRAZOLE 40 MG TABLET PO SCH (09:59)
[2020-02-26] MEDS: BACITRACIN 15 GM TUBE TOPICAL OINTMENT TP SCH (09:59)
[2020-02-26] MEDS: FERROUS SO4 325 MG TABLET (FP) PO SCH (09:59)
[2020-02-26] MEDS: CEFTRIAXONE 1 GM in DEXTROSE 5%-WATER - 50 ML IVPB SCH (09:59)
[2020-02-26] MEDS: SILVER SULFADIAZINE 1% TOP CREAM 50 GM JAR TP SCH (10:00)
[2020-02-26] MEDS: FOLIC ACID 1 MG TABLET (FP) PO SCH (10:00)
[2020-02-26] MEDS: lamoTRIgine 25 MG TABLET PO SCH ×2 (10:00→23:06)
[2020-02-26] MEDS: TOPIRAMATE 25 MG TABLET PO SCH ×2 (10:00→23:06)
[2020-02-26] MEDS: PRAMIPEXOLE DIHYDROCHLORIDE 1 MG TABLET PO SCH ×2 (10:01→22:01)
--- NOTE | 2020-02-26 10:59 | CON.CARD ---
Consult Consult Specialty:: Cardiology Referred by:: Hospitalist Medicine Reason for Consultation:: Near syncope - History of Present Illness Chief Complaint: Near syncope History of Present Illness: 54 y/o F, w/ PMHx HTN, HLD, DM, CVA, COPD/Asthma (not on home o2), OA with chronic pain, bipolar disorder (on lamictal), and recently diagnosed b/l PE and DVTs on pradaxa (01/18/2020), neurocardiogenic syncope, morbid obesity, COPD and obstructive sleep apnea not on cpap a/w epigastric pain. CT scan with [id number] left adnexal spherical structure is noted which, on the basis of this noncontrast exam, may represent a nonspecific complex cyst versus solid lesion. Interval development of retroperitoneal, b/l pelvic and left lymphadenopathy is seen. Development of mild mesenteric soft tissue thickening is noted adjacent to the left pelvic wall-?possible carcinamatosis. She has declined planned excisional bx. of a left groin lymph node after risks/benefits/alternatives and indications for the procedure; despite discussion the patient will not consent to the procedure. We were called to evaluate patient post near syncopal episode . Pt was in BR on toilet and felt dizzy-sat back down and called for help. No prodromal symptoms, denies true syncope, diaphoresis, palpitations, nausea or emesis. No seizure activity. Recalled entire event. No LOC, no fall noted. HR 86, BP 100/56, SPO@ 96. BS 270. - History Source History Provided By: Patient Limitations to Obtaining History: No Limitations - Past Medical History CLINICAL RESOURCE MANAGER: Yes: CVA, Seizure, TIA Cardio/Vascular: Yes: CAD, HTN, Hyperlipdemia Pulmonary: Yes: Sleep Apnea Gastrointestinal: Yes: Other Hepatobiliary: Yes: Hepatitis C ...LMP: 09/30/17 ...: No Infectious Disease: Yes: Other (Hep C) Psych: Yes: Anxiety, Bipolar Musculoskeletal: Yes: Chronic low back pain Endocrine: Yes: Diabetes Mellitus - Past Surgical History Past Surgical History: Yes: , Hernia Repair Additional Surgical History: Bilateral Tubal Ligation - Alcohol/Substance Use Hx Alcohol Use: No - Smoking History Smoking history: Former smoker Have you smoked in the past 12 months: No If you are a former smoker, when did you quit?: 2013 - Social History Usual Living Arrangement: Alone ADL: Independent History of Recent Travel: No Home Medications - Allergies Allergies/Adverse Reactions: Allergies Allergy/AdvReac Type Severity Reaction Status Date / Time enoxaparin [From Lovenox] Allergy Intermediate Rash Verified 02/24/20 13:53 Iodinated Contrast Media Allergy Intermediate Itching Verified 02/24/20 13:53 [Iodinated Contrast Media - IV Dye] azithromycin AdvReac Intermediate Itching Verified 02/24/20 13:53 - Home Medications Home Medications: Ambulatory Orders Fluoxetine HCl [Prozac -] 40 mg PO AM 09/15/14 Albuterol Sulfate Inhaler - [Ventolin HFA Inhaler -] 1 - 2 inh PO QID PRN 03/15/16 clonazePAM [Klonopin -] 0.5 mg PO BID 05/12/17 Loratadine [Claritin] 10 mg PO DAILY PRN 09/11/17 Furosemide [Lasix -] 40 mg PO DAILY 04/06/18 Gabapentin [Neurontin] 800 mg PO TID 08/02/18 Lisinopril [Prinivil] 20 mg PO DAILY 09/28/18 Omeprazole 40 mg PO DAILY 02/21/19 Pramipexole Di-HCl [Mirapex] 1 mg PO BID 05/01/19 Lamotrigine [Lamictal -] 75 mg PO BID 09/05/19 Ergocalciferol (Vitamin D2) [Vitamin D2] 50,000 unit PO Q7D #5 capsule 12/06/19 Cyanocobalamin Vit B-12 Inj. [Vitamin B12 Injection -] 1,000 mcg IJ WEEKLY 01/16/20 Fluticasone Propionate [Flovent Hfa] 2 puff IH BID 01/16/20 Insulin Lispro [Humalog] 35 unit SQ TID 01/16/20 Meloxicam 15 mg PO DAILY 01/16/20 Sitagliptin Phos/Metformin HCl [Janumet Xr 50-1,000 mg Tablet] 1 tab PO BID 01/16/20 Sumatriptan Succinate [Imitrex -] 25 mg PO PRN PRN 01/16/20 Dabigatran Etexilate Mesylate [Pradaxa -] 150 mg PO BID #30 capsule 02/05/20 Albuterol Sulfate [Proair Hfa] 8.5 gm IH Q4H 02/24/20 Bacitracin Zinc 1 gm TP DAILY 02/24/20 Cephalexin [Keflex] 500 mg PO BID 02/24/20 Ferrous Sulfate 325 mg PO DAILY 02/24/20 Fluticasone Prop 0.05% Nasal [Flonase -] 1 spray NS DAILY 02/24/20 Folic Acid - 4 mg PO DAILY 02/24/20 Hydrocodone/Acetaminophen [[place] 10-325 Tablet] 1 each PO BID MDD 3 02/24/20 Insulin Lispro Protamin/Lispro [Humalog Mix 50-50 Kwikpen] 0 unit SQ ASDIR 02/24/20 Loperamide HCl [Loperamide] 2 mg PO QID PRN 02/24/20 Loratadine [Claritin] 10 mg PO DAILY 02/24/20 Metoprolol Succinate 25 mg PO DAILY 02/24/20 Naproxen Sodium [Naproxen Sodium ER] 500 mg PO BID PRN 02/24/20 Olopatadine HCl 5 ml OP BID 02/24/20 Omeprazole 40 mg PO DAILY 02/24/20 Semaglutide [Ozempic] 1 mg SQ ASDIR 02/24/20 Silver Sulfadiazine [Silvadene] 20 gm TP DAILY 02/24/20 Simethicone [Gas Relief 80] 80 mg PO QID PRN 02/24/20 Tiotropium [place] [Spiriva] 18 mcg IH DAILY 02/24/20 Topiramate 50 mg PO BID 02/24/20 Zolpidem Tartrate [Ambien] 10 mg PO HS 02/24/20 Review of Systems - Review of Systems Neurological: reports: Dizziness Vital Signs: Vital Signs Temperature 98.2 F 02/26/20 06:00 Pulse Rate 96 H 02/26/20 06:00 Respiratory Rate 18 02/26/20 06:00 Blood Pressure 100/56 L 02/26/20 06:00 O2 Sat by Pulse Oximetry (%) 96 02/26/20 06:00 Constitutional: Yes: No Distress, Calm Neck: Yes: Supple Respiratory: Yes: Regular, CTA Bilaterally, On Nasal O2 Gastrointestinal: Yes: Normal Bowel Sounds, Soft, Abdomen, Obese Cardiovascular: Yes: Regular Rate and Rhythm JVD: No Carotid Bruit: No Heart Sounds: Yes: S1, S2 Edema: No - Other Data Labs, Other Data: CBC, BMP 02/25/20 05:58 02/25/20 05:58 INR, PTT INR 1.43 (0.83-1.09) H 02/24/20 14:00 ST @ 112 LAD Echo: Pending Ejection Fraction %: LVEF > or = 40 % Imaging - Results Chest X-ray: Report Reviewed (NAD) Assessment/Plan Problem List - Problems (1) Pre-syncope Code(s): R55 - SYNCOPE AND COLLAPSE (2) DVT prophylaxis Code(s): PCC5506 - (3) Diabetes mellitus, insulin dependent (IDDM), uncontrolled Code(s): E10.65 - TYPE 1 DIABETES MELLITUS WITH HYPERGLYCEMIA Qualifiers: Diabetes mellitus complication status: without complication Qualified Code(s): E10.65 - Type 1 diabetes mellitus with hyperglycemia (4) HTN (hypertension) Code(s): I10 - ESSENTIAL (PRIMARY) HYPERTENSION Qualifiers: Hypertension type: essential hypertension Qualified Code(s): I10 - Ess ential (primary) hypertension (5) History of stroke Code(s): Z86.73 - PRSNL HX OF TIA (TIA), AND CEREB INFRC W/O RESID DEFICITS (6) Hypercholesterolemia Code(s): E78.00 - PURE HYPERCHOLESTEROLEMIA, UNSPECIFIED (7) MARILU (obstructive sleep apnea) Code(s): G47.33 - OBSTRUCTIVE SLEEP APNEA (ADULT) (PEDIATRIC) (8) Obesity, Class III, BMI 40-49.9 (morbid obesity) Code(s): E66.01 - MORBID (SEVERE) OBESITY DUE TO EXCESS CALORIES (9) Stroke Code(s): I63.9 - CEREBRAL INFARCTION, UNSPECIFIED Qualifiers: CVA mechanism: unspecified Qualified Code(s): I63.9 - Cerebral infarction, unspecified (10) Tachycardia Code(s): R00.0 - TACHYCARDIA, UNSPECIFIED (11) Syncope Code(s): R55 - SYNCOPE AND COLLAPSE Qualifiers: Syncope type: unspecified Qualified Code(s): R55 - Syncope and collapse Assessment/Plan 02/26/2020 Echo: Normal LV size and fxn LVEF 55-60% w/o sig valve abnl 1. Recurrent syncope probably neuro-cardiogenic syncope, unclear vaso-depressor vs. cardio-inhibitory, cannot exclude vaso-vagal syncope, history of palpitations with no evidence of sustained arrhythmia 2. COPD, chronic bronchitis 3. Sinus tachycardia, reactionary to above 4. Chest pain syndrome/CAD angina pectoris 5. Diastolic LV dysfunction with class 0-I NYHA classification LV failure, c ompensated/euvolemic 6. Hypertension 7. Diabetes mellitus 8. Hypercholesterolemia 9. Hypothyroidism 10. Obstructive sleep apnea 11. Anxiety disorder 12. LAD declines biopsy PLAN: 1. Decrease Lasix 20 qd, continue lisinopril 20 qd, Pradaxa 150 bid, Toprol XL 25 qd 2. Addressed abortive maneuvers once prodromal sxs experienced 3. Bronchodilators, O2 as needed, repeat sleep study for cpap titration as outpatient 4. UGI series and colonoscopy per GI 5. Thank you for consultative opportunity
[2020-02-26] MEDS: TIOTROPIUM BROMIDE 2.5 MCG (SPIRIVA) RESPIMAT INHALER IH SCH (11:36)
[2020-02-26] MEDS: FLUTICASONE PROP 0.05% 16 GM NASAL SPRAY NS SCH (11:37)
[2020-02-26] MEDS: DOXYCYCLINE INJECTION 100 MG in DEXTROSE 5%-WATER - 100 ML IVPB SCH (11:37)
--- NOTE | 2020-02-26 11:53 | ECHO ---
Name: SAMEERA JUNIOR Exam:Adult Echocardiogram Study Date: 02/26/2020 09:32 AM Age: 54 yrs Reason For Study: SOB Height: 59 in Weight: 241 lb BSA: 2.0 m2 MMode/2D Measurements & Calculations IVSd: 1.0 cm Ao root diam: 3.1 cm LVIDd: 4.3 cm LA dimension: 3.1 cm LVIDs: 2.7 cm ACS: 2.1 cm LVPWd: 1.00 cm LVPWs: 1.1 cm EDV(Teich): 83.6 ml ESV(Teich): 28.3 ml LVOT diam: 2.2 cm LVLd ap4: 7.3 cm EDV(MOD-sp4): 65.0 ml LVLs ap4: 5.6 cm ESV(MOD-sp4): 31.0 ml SV(MOD-sp4): 34.0 ml LAV (MOD-bp): 30.0 ml Doppler Measurements & Calculations MV V2 max: 119.4 cm/sec MV E max jeff: 106.7 cm/sec MV max P.7 mmHg MV A max jeff: 83.9 cm/sec MV V2 mean: 74.5 cm/sec MV E/A: 1.3 MV mean P.5 mmHg MV dec time: 0.19 sec MV V2 VTI: 22.8 cm Ao V2 max: 138.5 cm/sec LV V1 max P.3 mmHg Ao max P.7 mmHg LV V1 max: 91.3 cm/sec KATIE(V,D): 2.6 cm2 PA V2 max: 97.7 cm/sec Med Peak E' Jeff: 9.9 cm/sec PA max P.8 mmHg Med E/e': 10.7 Lat Peak E' Jeff: 10.8 cm/sec Lat E/e': 9.9 Tech Comments Technically difficult study due to body habitus. Procedure The study was technically limited with all images being suboptimal in quality. Left Ventricle The left ventricle is grossly normal size. Left ventricular systolic function is normal. Ejection Fra ction = 55-60%. Left Ventricular Filling pattern is normal for age. Regional wall motion abnormalities cannot be excluded due to limited visualization. Right Ventricle The right ventricle is not well visualized. Atria Normal left and right atrial size and function. Mitral Valve There is mild mitral annular calcification. The mitral valve is not well visualized. Tricuspid Valve The tricuspid valve is not well visualized. There was insufficient TR detected to calculate RV systol ic pressure. Aortic Valve The aortic valve is not well visualized. Pulmonic Valve The pulmonic valve is not well visualized. Great Vessels The aortic root is not well visualized. Pericardium/Pleura There is no pericardial effusion. Interpretation Summary The study was technically limited with all images being suboptimal in quality. The left ventricle is grossly normal size. Left ventricular systolic function is normal. Ejection Fra ction = 55-60%. The right ventricle is not well visualized. Normal left and right atrial size and function. The aortic valve is not well visualized. There is mild mitral annular calcification. The mitral valve is not well visualized. MD Jasmine Guillen 02/26/2020 11:52 AM
--- NOTE | 2020-02-26 12:05 | PN ---
Progress Note (short form) - Note Progress Note: Attending Surgeon I had an extensive discussion w/the patient this morning prior to a planned excisional bx. of a left groin lymph node about the risks/benefits/alternatives and indications for the procedure; despite this discussion the patient will not consent to the procedure; this is an informed decision on her part; please reconsult as needed. Samir Lafleur MD FACS
[2020-02-26] MEDS ORDERED: SIMETHICONE 80 MG TAB.CHEW (FP) PO PRN (12:58)
[2020-02-26] MEDS ORDERED: LOPERAMIDE HCL 2 MG CAPSULE PO PRN (12:58)
[2020-02-26] MEDS ORDERED: ZOLPIDEM TARTRATE 5 MG TABLET PO PRN (12:58)
[2020-02-26 14:45] LABS: BASO % 0.3 % (0-2.0); EOS % 5.1 % (0-4.5); HEMATOCRIT 28.9 % (32.4-45.2); HEMOGLOBIN 9.4 GM/dL (10.7-15.3); LYMPH % 11.3 % (8-40); MCH 26.3 pg (25.7-33.7); MCHC 32.6 g/dl (32.0-36.0); MEAN CELL VOLUME 80.7 fl (80-96); MEAN PLT VOLUME 8.1 fl (7.5-11.1); MONO % 7.2 % (3.8-10.2); NEUT % 76.1 % (42.8-82.8); PLATELET COUNT 440 K/MM3 (134-434); RBC 3.59 M/mm3 (3.60-5.2); WHITE BLOOD COUNT 9.1 K/mm3 (4.0-10.0)
[2020-02-26 14:53] LABS: INR 1.13 (0.83-1.09); PROTHROMBIN TIME (PATIENT) 13.4 SEC (9.7-13.0)
[2020-02-26 15:05] VITALS: BMI 48.6
--- NOTE | 2020-02-26 15:16 | PN ---
Physical Exam: SUBJECTIVE: Patient seen and examined. Pt. endorses happiness about pain going away. Discussed with team and per chart review that Pt. is anxious and refusing biopsy and workup. Discussed with Pt. at length x 2 today about the benefits and risks of having biopsy. Pt. is extremely apprehensive about sedation and the risks given her co-morbidities. OBJECTIVE: Vital Signs Period Temp Pulse Resp BP Sys/Giron Pulse Ox Last 24 Hr 98 F-98.6 F 80-98 18-24 100-115/56-64 96-97 GENERAL: Awake, alert, and fully oriented, in no acute distress. HEAD: Normal with no signs of trauma. EYES: Extraocular movements intact, sclera anicteric, conjunctiva clear. EARS, NOSE, THROAT: Ears normal, nares patent, oropharynx clear without exudates. Moist mucous membranes. NECK: Normal range of motion, supple without lymphadenopathy, JVD, or masses. LUNGS: Breath sounds equal, clear to auscultation bilaterally. No wheezes, and no crackles. No accessory muscle use. HEART: tachycardic regular rate and rhythm, normal S1 and S2 without murmur ABDOMEN: Soft, non-tender, protuberant but not distended, normoactive bowel sounds, no guarding, no rebound MUSCULOSKELETAL: No CVA tenderness. UPPER EXTREMITIES: warm, well-perfused. No cyanosis. No clubbing. No peripheral edema. LOWER EXTREMITIES: 2+ dorsal pedal pulses, warm, well-perfused. No calf tenderness. Trace pitting edema. NEUROLOGICAL: Moves all extremities. Normal speech. Gait not assessed PSYCHIATRIC: Cooperative. Good eye contact. Anxious. SKIN: Warm, dry, normal turgor Laboratory Results - last 24 hr 02/24/20 02/24/20 02/25/20 01:02 09:42 17:20 WBC RBC Hgb Hct MCV MCH MCHC RDW Plt Count MPV Absolute Neuts (auto) Neutrophils % Lymphocytes % Monocytes % Eosinophils % Basophils % Nucleated RBC % PT with INR INR PTT (Actin FS) POC Glucometer 133 Stool Occult Blood Negative COVID-19 (SUSHMA) Not detected 02/25/20 02/25/20 02/26/20 22:57 23:50 07:23 WBC RBC Hgb Hct MCV MCH MCHC RDW Plt Count MPV Absolute Neuts (auto) Neutrophils % Lymphocytes % Monocytes % Eosinophils % Basophils % Nucleated RBC % PT with INR INR PTT (Actin FS) 41.4 H POC Glucometer 329 270 Stool Occult Blood COVID-19 (SUSHMA) 02/26/20 02/26/20 02/26/20 12:24 14:11 14:11 WBC 9.1 RBC 3.59 L Hgb 9.4 L Hct 28.9 L MCV 80.7 MCH 26.3 MCHC 32.6 RDW 15.0 Plt Count 440 H MPV 8.1 Absolute Neuts (auto) 6.9 Neutrophils % 76.1 Lymphocytes % 11.3 Monocytes % 7.2 Eosinophils % 5.1 H Basophils % 0.3 Nucleated RBC % 0 PT with INR 13.40 H INR 1.13 H PTT (Actin FS) POC Glucometer 225 Stool Occult Blood COVID-19 (SUSHMA) Active Medications Generic Name Dose Route Start Last Admin Trade Name Freq PRN Reason Stop Dose Admin Bacitracin 1 applic 02/27/20 10:00 Bacitracin - TP DAILY [facility] Dabigatran 150 mg 02/26/20 22:00 Pradaxa - PO BID [facility] Ergocalciferol 50,000 unit 03/04/20 10:00 Drisdol - PO Q7D@1000 [facility] Ferrous Sulfate 325 mg 02/27/20 10:00 Feosol - PO DAILY [facility] Fluoxetine HCl 40 mg 02/27/20 07:00 Prozac - PO AM [facility] Fluticasone Propionate 1 spray 02/27/20 10:00 Flonase - NS DAILY [facility] Folic Acid 4 mg 02/27/20 10:00 Folic Acid - PO DAILY [facility] Furosemide 20 mg 02/27/20 10:00 Lasix - PO DAILY [facility] Gabapentin 800 mg 02/26/20 14:00 02/26/20 14:33 Neurontin - PO 800 mg TID SHAUN Administration Ceftriaxone Sodium 1 gm/ 50 mls @ 100 mls/hr 02/27/20 10:00 Dextrose IVPB DAILY [facility] Doxycycline Hyclate 100 mg/ 100 mls @ 100 mls/hr 02/26/20 22:00 Dextrose IVPB BID [facility] Sodium Chloride 1,000 mls @ 75 mls/hr 02/26/20 12:58 02/26/20 14:29 Normal Saline - IV Not Given ASDIR [facility] Insulin Aspart 1 vial 02/26/20 16:30 Novolog Vial Sliding Scale - SQ ACHS [facility] Protocol Lamotrigine 75 mg 02/26/20 22:00 Lamictal - PO BID [facility] Lisinopril 20 mg 02/27/20 10:00 Prinivil PO DAILY [facility] Loperamide HCl 2 mg 02/26/20 12:58 Imodium - PO QID PRN DIARRHEA Metoprolol Succinate 25 mg 02/27/20 10:00 Toprol Xl - PO DAILY [facility] Oxycodone HCl 10 mg 02/26/20 12:58 Roxicodone - PO Q8H PRN PAIN LEVEL 6-10 Pantoprazole Sodium 40 mg 02/27/20 10:00 Protonix - PO DAILY [facility] Pramipexole Dihydrochloride 1 mg 02/26/20 22:00 Mirapex - PO BID [facility] Silver Sulfadiazine 1 applic 02/27/20 10:00 Silvadene - TP DAILY [facility] Simethicone 80 mg 02/26/20 12:58 Mylicon - PO QID PRN GAS Tiotropium [place] 2 puff 02/27/20 10:00 Spiriva Respimat IH DAILY [facility] Topiramate 50 mg 02/26/20 22:00 Topamax - PO BID [facility] Zolpidem Tartrate 10 mg 02/26/20 12:58 Ambien - PO HS PRN AGITATION ASSESSMENT/PLAN: Pt. is a 54 y.o. F w/ PMHx. 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 of Seizures, and recent diagnosis of b/l PE and DVT(currently on Pradxa) presents with abdominal pain and nausea and vomiting. We have been called to assess Pt. for lymphadenopathy noted on abdominal exam. #Epigastric Abdominal Pain CT AP showed paraumbilical hernia, 9x9x8 cm mid-upper pelvic L. ?adnexal cyst(complex?) with mesesnteric soft tissue stranding, 3.[address]inal enlarged LN, splenomegaly(15 cm no interval change since last year), diffuse hepatic steatosis with hepatomegaly TVUS: 10x9x8 cm L. adnexal cyst with small amount of internal debris; thickedned endometrium (7mm), 2.7 cm R adnexal cyst History strongly suspicious for Pradaxa associated gastritis will need to switch to Warfarin given that Pt. failed Lovenox and xarelto Cannot r/o malignancy/carcinomatois given B-Symptoms and strong family Hx. 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 Visit type - Emergency Visit Emergency Visit: Yes ED Registration Date: 02/24/20 Care time: The patient presented to the Emergency Department on the above date and was hospitalized for further evaluation of their emergent condition. - New Patient This patient is new to me today: No - Critical Care Critical Care patient: No - Discharge Referral Referred to [facility] No ATTENDING PHYSICIAN STATEMENT I saw and evaluated the patient. I reviewed the resident's note and discussed the case with the resident. I agree with the resident's findings and plan as documented. SUBJECTIVE: OBJECTIVE: ASSESSMENT AND PLAN:
[2020-02-26 15:26] LABS: ALBUMIN 2.4 g/dl (3.4-5.0); BLOOD UREA NITROGEN 10.1 mg/dL (7-18); CALCIUM 8.2 mg/dL (8.5-10.1); CREATININE 1.1 mg/dL (0.55-1.3); MAGNESIUM 2.5 mg/dL (1.8-2.4); POTASSIUM 4.6 mmol/L (3.5-5.1); TOT PROT 6.6 g/dl (6.4-8.2); URIC ACID 4.8 mg/dL (2.6-7.2)
[2020-02-26 15:27] LABS: BILIRUBIN,TOTAL 0.3 mg/dL (0.2-1)
[2020-02-26] MEDS ORDERED: HEPARIN NA (PORCINE) 5,000 UNITS/ML 1ML VIAL IVPUSH PRN ×2 (15:38)
[2020-02-26] MEDS ORDERED: HEPARIN - 25,000 UNIT in SODIUM CHLORIDE 495 ML IV SCH (15:45)
[2020-02-26] MEDS ORDERED: LORATADINE 10 MG TABLET PO PRN (17:47)
[2020-02-26] MEDS: ALBUTEROL SO4 2.5/IPRATROPIUM 0.5 INH SOL 3 ML VIAL.NEB. NEB PRN (18:31)
--- NOTE | 2020-02-26 18:40 | PN ---
Progress Note, Physician Chief Complaint: Seen and examined in the bed after Rapid Response for near syncopal episode. Pending transfer to tele for further monitoing. Carotis doppler, TTE pending. refusing surgical lymphnode bx-exploring IR guided. Oncological w/u in progress History of Present Illness: 54y/o F, with a PMH of HTN, HLD, DM, CVA, COPD/Asthma (not on home o2), OA with chronic pain, bipolar disorder, and recently diagnosed b/l PE and DVTs on pradaxa (01/18/2020) who presents to the ED with epigastric pain x1 week. Pt describes the pain as intermittent, diffuse, sharp in nature, non-radiating, associated with 4 episodes of NBNB vomiting the past 4 days. - Current Medication List Current Medications: Active Medications Albuterol/Ipratropium (Duoneb -) 1 amp NEB Q6H PRN PRN Reason: Dyspnea Last Admin: 02/26/20 18:31 Dose: 1 amp Documented by: Bacitracin (Bacitracin -) 1 applic TP DAILY [facility] Clonazepam (Klonopin -) 0.5 mg PO BID [facility] Dabigatran (Pradaxa -) 150 mg PO BID [facility] Ergocalciferol (Drisdol -) 50,000 unit PO Q7D@1000 [facility] Ferrous Sulfate (Feosol -) 325 mg PO DAILY [facility] Fluoxetine HCl (Prozac -) 40 mg PO AM [facility] Fluticasone Propionate (Flonase -) 1 spray NS DAILY [facility] Folic Acid (Folic Acid -) 4 mg PO DAILY [facility] Furosemide (Lasix -) 20 mg PO DAILY [facility] Gabapentin (Neurontin -) 800 mg PO TID [facility] Last Admin: 02/26/20 14:33 Dose: 800 mg Documented by: Ceftriaxone Sodium 1 gm/ (Dextrose) 50 mls @ 100 mls/hr IVPB DAILY [facility] Doxycycline Hyclate 100 mg/ (Dextrose) 100 mls @ 100 mls/hr IVPB BID [facility] Sodium Chloride (Normal Saline -) 1,000 mls @ 75 mls/hr IV ASDIR [facility] Last Admin: 02/26/20 14:29 Dose: Not Given Documented by: Insulin Aspart (Novolog Vial Sliding Scale -) 1 vial SQ ACHS [facility]; Protocol Last Admin: 02/26/20 16:37 Dose: 6 units Documented by: Lamotrigine (Lamictal -) 75 mg PO BID [facility] Lisinopril (Prinivil) 20 mg PO DAILY [facility] Loperamide HCl (Imodium -) 2 mg PO QID PRN PRN Reason: DIARRHEA Loratadine (Claritin -) 10 mg PO DAILY PRN PRN Reason: ALLERGIES Metoprolol Succinate (Toprol Xl -) 25 mg PO DAILY [facility] Oxycodone HCl (Roxicodone -) 10 mg PO Q8H PRN PRN Reason: PAIN LEVEL 6-10 Last Admin: 02/26/20 16:35 Dose: 10 mg Documented by: Pantoprazole Sodium (Protonix -) 40 mg PO DAILY [facility] Pramipexole Dihydrochloride (Mirapex -) 1 mg PO BID [facility] Silver Sulfadiazine (Silvadene -) 1 applic TP DAILY [facility] Simethicone (Mylicon -) 80 mg PO QID PRN PRN Reason: GAS Tiotropium [place] (Spiriva Respimat) 2 puff IH DAILY [facility] Topiramate (Topamax -) 50 mg PO BID [facility] Zolpidem Tartrate (Ambien -) 10 mg PO HS PRN PRN Reason: AGITATION - Objective Vital Signs: Vital Signs Temperature 98 F 02/26/20 15:24 Pulse Rate 96 H 02/26/20 15:24 Respiratory Rate 18 02/26/20 15:24 Blood Pressure 118/68 02/26/20 15:24 O2 Sat by Pulse Oximetry (%) 98 02/26/20 15:24 Additional Findings/Remarks: Constitutional: Yes: No Distress, Calm, Obese Eyes: Yes: WNL, Conjunctiva Clear HENT: Yes: WNL, Atraumatic, Normocephalic Neck: Yes: Supple, Trachea Midline, Lymphadenopathy Cardiovascular: Yes: WNL, Regular Rate and Rhythm Respiratory: Yes: WNL, Regular, CTA Bilaterally Gastrointestinal: Yes: Normal Bowel Sounds, Soft, Abdomen, Obese, no Tenderness ...Rectal Exam: Yes: Deferred Genitourinary: Yes: WNL Breast(s): Yes: WNL Musculoskeletal: Yes: WNL Extremities: Yes: WNL Edema: No Peripheral Pulses WNL: Yes Peripheral Pulses: Left Radial: 2+, Right Radial: 2+, Left Doralis Pedis: 2+, Right Dorsalis Pedis: 2+, Left Femoral: 2+, Right Femoral: 2+ Integumentary: Yes: WNL Neurological: Yes: WNL, Alert, Oriented ...Motor Strength: WNL Psychiatric: Yes: WNL Labs: CBC, BMP 02/26/20 14:11 02/26/20 14:11 INR, PTT INR 1.13 (0.83-1.09) H 02/26/20 14:11 - ....Imaging Cat Scan: Report Reviewed Problem List - Problems (1) Prophylactic measure Assessment/Plan: FEN Fluids: poor PO intake r/t n/v Electrolytes: monitor & replete as needed Nutrition: npo past mn DVT high risk with recent PEs prodaxa on hold for impeding bx in am heparin gtt Dispo Maintain as inpatient full code discharge planning Code(s): Z29.9 - ENCOUNTER FOR PROPHYLACTIC MEASURES, UNSPECIFIED (2) HLD (hyperlipidemia) Assessment/Plan: low fat/cholertserol diet Code(s): E78.5 - HYPERLIPIDEMIA, UNSPECIFIED (3) CVA (cerebral vascular accident) Assessment/Plan: no residuals PT fall precautions TTE and cardotid dopplers pending after syncopal episode Code(s): I63.9 - CEREBRAL INFARCTION, UNSPECIFIED (4) COPD (chronic obstructive pulmonary disease) Assessment/Plan: no O2 needed c/w spiriva, flonase duo nebs Code(s): J44.9 - CHRONIC OBSTRUCTIVE PULMONARY DISEASE, UNSPECIFIED (5) Asthma Assessment/Plan: duonebs prn Code(s): J45.909 - UNSPECIFIED ASTHMA, UNCOMPLICATED (6) Chronic pain Assessment/Plan: chronuic back pain c/w roxicodone, gabapentin PT Code(s): G89.29 - OTHER CHRONIC PAIN (7) Pulmonary embolism, bilateral Assessment/Plan: presumed based on findings on last admission not able to perform CTA d/t dye allergy VQ scan interminate c/w pradaxa Code(s): I26.99 - OTHER PULMONARY EMBOLISM WITHOUT ACUTE COR PULMONALE (8) Anemia Assessment/Plan: monitor cbc hgb 9.4 c/w FeSo4 FOBT pending iron studies sent no signs of overt bleed GI to see Code(s): D64.9 - ANEMIA, UNSPECIFIED (9) Diabetes Assessment/Plan: BGM AC/HS with novolog sliding scale diabetic diet Code(s): E11.9 - TYPE 2 DIABETES MELLITUS WITHOUT COMPLICATIONS (10) Epigastric abdominal pain Assessment/Plan: CT abd pelvis: 10X7 cm midline /Lt paramedian paraumbillical hernia with mild mesenteric edema noted in left paramedian aspect with subq edema along pelvic wall Lt>Rt. 9 X 8 X 8cm noncalcified structure in Lt-> mid upper pelvis possible adnexal cyst, mesenteric soft tissue stranding, 3.[address], left paraaortic retroperitoneal LN's, splenomegaly (15cm), 0.4 cm non-obstructive Lt renal lower pole calculus, diffuse hepatic steatosis with hepatomegaly shown on abd sono as well, possbile carcinomatosis and TVUS showing 10X 4 X 8 cm nonspecific left adnexal cyst, 2.7 CM rt ovarian cyst, no torsion. resolved Code(s): R10.13 - EPIGASTRIC PAIN (11) Bipolar disorder Assessment/Plan: c/w lamictal c/w prozac Code(s): F31.9 - BIPOLAR DISORDER, UNSPECIFIED Qualifiers: (12) HTN (hypertension) Code(s): I10 - ESSENTIAL (PRIMARY) HYPERTENSION Qualifiers: Hypertension type: essential hypertension Qualified Code(s): I10 - Essential (primary) hypertension (13) History of stroke Code(s): Z86.73 - PRSNL HX OF TIA (TIA), AND CEREB INFRC W/O RESID DEFICITS (14) Obesity, Class III, BMI 40-49.9 (morbid obesity) Assessment/Plan: counseled on weight loss Code(s): E66.01 - MORBID (SEVERE) OBESITY DUE TO EXCESS CALORIES (15) Suspected COVID-19 virus infection Assessment/Plan: PCR negative Code(s): Z20.828 - CONTACT W AND EXPOSURE TO OTH VIRAL COMMUNICABLE DISEASES Visit type - Emergency Visit Emergency Visit: Yes ED Registration Date: 02/24/20 Care time: The patient presented to the Emergency Department on the above date and was hospitalized for further evaluation of their emergent condition. - New Patient This patient is new to me today: No - Critical Care Critical Care patient: No - Discharge Referral Referred to [facility] Med P.C.: No
[2020-02-26] MEDS ORDERED: DEXTROSE 5%-WATER 100 ML IVPB ONE (21:24)
[2020-02-26] MEDS ORDERED: DOXYCYCLINE HYCLATE 100 MG VIAL ONE (21:24)
[2020-02-26] MEDS: clonazePAM 0.5 MG TABLET PO SCH (22:00)
[2020-02-26] MEDS ORDERED: DABIGATRAN ETEXILATE MESYLATE 150 MG CAPSULE PO SCH (22:00)
[2020-02-26] MEDS: DABIGATRAN ETEXILATE MESYLATE 150 MG CAPSULE PO SCH (22:01)
[2020-02-26] MEDS: DOXYCYCLINE INJECTION 100 MG in DEXTROSE 5%-WATER 100 ML IVPB SCH (22:09)
--- NOTE | 2020-02-26 22:56 | PN ---
Teaching Attending Note Name of Resident: Aldo Munson ATTENDING PHYSICIAN STATEMENT I saw and evaluated the patient. I reviewed the resident's note and discussed the case with the resident. I agree with the resident's findings and plan as documented. ASSESSMENT AND PLAN: Pt. is a 54 y.o. F w/ PMHx. of obesity,HTN, HLD, DM, CVA(2015 with residual L. sided weakness), COPD, GERD, asthma, OA, Bipolar Disorder, Hx. of Seizures, and recent diagnosis of b/l DVT and ??PE(was on Pradxa) presents with abdominal pain and nausea and vomiting. We have been called to assess Patient . for lymphadenopathy CT AP showed paraumbilical hernia, 9x9x8 cm mid-upper pelvic L. ?adnexal cyst(complex?) with mesesnteric soft tissue stranding, 3.[address] inguinal enlarged LN, fatty liver,splenomegaly(15 cm no interval change since last year), diffuse hepatic steatosis with hepatomegaly pelvic, retroperitoneal, inguinal adenopathy. ? left pelvic mesenteric --? carcinomatosis. uterus enlarged TVUS: 10x9x8 cm L. adnexal cyst with small amount of internal debris; thickedned endometrium (7mm), 2.7 cm R adnexal cyst CA 125/ CEA pending. check LDH Would consider Lt. inguinal node biopsy -- will discuss with IR. B/L Popliteal/posterior tibial DVT and intermediate risk V/Q on 01/15/20. Will repeaat duplex On pradaxa ? 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 + h/o gastric cancer on paternal side
[2020-02-27] MEDS: ALBUTEROL SO4 2.5/IPRATROPIUM 0.5 INH SOL 3 ML VIAL.NEB. NEB PRN ×4 (03:36→20:28)
[2020-02-27] MEDS: oxyCODONE HCL 5 MG TABLET PO PRN (03:57)
[2020-02-27] MEDS: INSULIN SLIDING SCALE (NOVOLOG) 1 VIAL SQ SCH ×4 (06:28→22:03)
[2020-02-27] MEDS: FLUoxetine HCL 20 MG CAPSULE PO SCH (06:32)
[2020-02-27] MEDS: GABAPENTIN 400 MG CAPSULE PO SCH ×3 (06:32→21:16)
--- NOTE | 2020-02-27 08:03 | PN ---
Progress Note, Physician Chief Complaint: Seen and examined in the bed . No c/o abd pain. Plan for dopplers of lower extremities to assess for DVts. Not able to do lymph node bx on this admission- planning for out pt procedure while off anticoaqgulation. Oncological w/u in progress History of Present Illness: 54y/o F, with a PMH of HTN, HLD, DM, CVA, COPD/Asthma (not on home o2), OA with chronic pain, bipolar disorder, and recently diagnosed b/l PE and DVTs on pradaxa (01/18/2020) who presents to the ED with epigastric pain x1 week. Pt describes the pain as intermittent, diffuse, sharp in nature, non-radiating, associated with 4 episodes of NBNB vomiting the past 4 days. - Current Medication List Current Medications: Active Medications Albuterol/Ipratropium (Duoneb -) 1 amp NEB Q6H PRN PRN Reason: Dyspnea Last Admin: 02/27/20 03:36 Dose: 1 amp Documented by: Bacitracin (Bacitracin -) 1 applic TP DAILY [facility] Clonazepam (Klonopin -) 0.5 mg PO BID [facility] Last Admin: 02/26/20 22:00 Dose: 0.5 mg Documented by: Dabigatran (Pradaxa -) 150 mg PO BID [facility] Last Admin: 02/26/20 22:01 Dose: 150 mg Documented by: Ergocalciferol (Drisdol -) 50,000 unit PO Q7D@1000 [facility] Ferrous Sulfate (Feosol -) 325 mg PO DAILY [facility] Fluoxetine HCl (Prozac -) 40 mg PO AM [facility] Last Admin: 02/27/20 06:32 Dose: Not Given Documented by: Fluticasone Propionate (Flonase -) 1 spray NS DAILY [facility] Folic Acid (Folic Acid -) 4 mg PO DAILY [facility] Furosemide (Lasix -) 20 mg PO DAILY [facility] Gabapentin (Neurontin -) 800 mg PO TID [facility] Last Admin: 02/27/20 06:32 Dose: Not Given Documented by: Ceftriaxone Sodium 1 gm/ (Dextrose) 50 mls @ 100 mls/hr IVPB DAILY [facility] Doxycycline Hyclate 100 mg/ (Dextrose) 100 mls @ 100 mls/hr IVPB BID [facility] Last Admin: 02/26/20 22:09 Dose: 100 mls/hr Documented by: Sodium Chloride (Normal Saline -) 1,000 mls @ 75 mls/hr IV ASDIR [facility] Last Admin: 02/26/20 14:29 Dose: Not Given Documented by: Insulin Aspart (Novolog Vial Sliding Scale -) 1 vial SQ ACHS [facility]; Protocol Last Admin: 02/27/20 06:28 Dose: 8 units Documented by: Lamotrigine (Lamictal -) 75 mg PO BID [facility] Last Admin: 02/26/20 23:06 Dose: 75 mg Documented by: Lisinopril (Prinivil) 20 mg PO DAILY [facility] Loperamide HCl (Imodium -) 2 mg PO QID PRN PRN Reason: DIARRHEA Loratadine (Claritin -) 10 mg PO DAILY PRN PRN Reason: ALLERGIES Metoprolol Succinate (Toprol Xl -) 25 mg PO DAILY [facility] Oxycodone HCl (Roxicodone -) 10 mg PO Q8H PRN PRN Reason: PAIN LEVEL 6-10 Last Admin: 02/27/20 03:57 Dose: 10 mg Documented by: Pantoprazole Sodium (Protonix -) 40 mg PO DAILY [facility] Pramipexole Dihydrochloride (Mirapex -) 1 mg PO BID [facility] Last Admin: 02/26/20 22:01 Dose: 1 mg Documented by: Silver Sulfadiazine (Silvadene -) 1 applic TP DAILY [facility] Simethicone (Mylicon -) 80 mg PO QID PRN PRN Reason: GAS Tiotropium [place] (Spiriva Respimat) 2 puff IH DAILY [facility] Topiramate (Topamax -) 50 mg PO BID [facility] Last Admin: 02/26/20 23:06 Dose: 50 mg Documented by: Zolpidem Tartrate (Ambien -) 10 mg PO HS PRN PRN Reason: AGITATION - Objective Vital Signs: Vital Signs Temperature 97.8 F 02/27/20 06:00 Pulse Rate 90 02/27/20 06:00 Respiratory Rate 20 02/27/20 06:00 Blood Pressure 110/64 02/27/20 06:00 O2 Sat by Pulse Oximetry (%) 99 02/27/20 02:00 Additional Findings/Remarks: Constitutional: Yes: No Distress, Calm, Obese Eyes: Yes: WNL, Conjunctiva Clear HENT: Yes: WNL, Atraumatic, Normocephalic Neck: Yes: Supple, Trachea Midline, Lymphadenopathy Cardiovascular: Yes: WNL, Regular Rate and Rhythm Respiratory: Yes: WNL, Regular, CTA Bilaterally Gastrointestinal: Yes: Normal Bowel Sounds, Soft, Abdomen, Obese, no Tenderness ...Rectal Exam: Yes: Deferred Genitourinary: Yes: WNL Breast(s): Yes: WNL Musculoskeletal: Yes: WNL Extremities: Yes: WNL Edema: No Peripheral Pulses WNL: Yes Peripheral Pulses: Left Radial: 2+, Right Radial: 2+, Left Doralis Pedis: 2+, Right Dorsalis Pedis: 2+, Left Femoral: 2+, Right Femoral: 2+ Integumentary: Yes: WNL Neurological: Yes: WNL, Alert, Oriented ...Motor Strength: WNL Psychiatric: Yes: WNL Labs: CBC, BMP 02/26/20 14:11 02/26/20 14:11 INR, PTT INR 1.13 (0.83-1.09) H 02/26/20 14:11 - ....Imaging Ultrasound: Pending (Sean AVILA) Problem List - Problems (1) Prophylactic measure Assessment/Plan: FEN Fluids: poor PO intake r/t n/v Electrolytes: monitor & replete as needed Nutrition: npo past mn DVT high risk with recent PEs prodaxa on hold for impeding bx in am heparin gtt Dispo Maintain as inpatient full code discharge planning Code(s): Z29.9 - ENCOUNTER FOR PROPHYLACTIC MEASURES, UNSPECIFIED (2) HLD (hyperlipidemia) Assessment/Plan: low fat/cholertserol diet Code(s): E78.5 - HYPERLIPIDEMIA, UNSPECIFIED (3) CVA (cerebral vascular accident) Assessment/Plan: no residuals PT fall precautions TTE and cardotid dopplers pending after syncopal episode Code(s): I63.9 - CEREBRAL INFARCTION, UNSPECIFIED (4) COPD (chronic obstructive pulmonary disease) Assessment/Plan: no O2 needed c/w spiriva, flonase duo nebs Code(s): J44.9 - CHRONIC OBSTRUCTIVE PULMONARY DISEASE, UNSPECIFIED (5) Asthma Assessment/Plan: duonebs prn Code(s): J45.909 - UNSPECIFIED ASTHMA, UNCOMPLICATED (6) Chronic pain Assessment/Plan: chronuic back pain c/w roxicodone, gabapentin PT Code(s): G89.29 - OTHER CHRONIC PAIN (7) Pulmonary embolism, bilateral Assessment/Plan: presumed based on findings on last admission not able to perform CTA d/t dye allergy VQ scan interminate lower extrem dopplers pending plan for change or pradaxa to eliquis tomorrow and will observe for allergic reaction Code(s): I26.99 - OTHER PULMONARY EMBOLISM WITHOUT ACUTE COR PULMONALE (8) Anemia Assessment/Plan: monitor cbc hgb stable c/w FeSo4 FOBT pending iron studies sent no signs of overt bleed GI to see Code(s): D64.9 - ANEMIA, UNSPECIFIED (9) Diabetes Assessment/Plan: bgm elevated start lantus 10u at night BGM AC/HS with novolog sliding scale diabetic diet Code(s): E11.9 - TYPE 2 DIABETES MELLITUS WITHOUT COMPLICATIONS (10) Epigastric abdominal pain Assessment/Plan: CT abd pelvis: 10X7 cm midline /Lt paramedian paraumbillical hernia with mild mesenteric edema noted in left paramedian aspect with subq edema along pelvic wall Lt>Rt. 9 X 8 X 8cm noncalcified structure in Lt-> mid upper pelvis possible adnexal cyst, mesenteric soft tissue stranding, 3.[address], left paraaortic retroperitoneal LN's, splenomegaly (15cm), 0.4 cm non-obstructive Lt renal lower pole calculus, diffuse hepatic steatosis with hepatomegaly shown on abd sono as well, possbile carcinomatosis and TVUS showing 10X 4 X 8 cm nonsp ecific left adnexal cyst, 2.7 CM rt ovarian cyst, no torsion. pain resolved Code(s): R10.13 - EPIGASTRIC PAIN (11) Bipolar disorder Assessment/Plan: c/w lamictal c/w prozac Code(s): F31.9 - BIPOLAR DISORDER, UNSPECIFIED Qualifiers: (12) HTN (hypertension) Assessment/Plan: normotensive c/w lasix, lisinipril, metoprolol Code(s): I10 - ESSENTIAL (PRIMARY) HYPERTENSION Qualifiers: Hypertension type: essential hypertension Qualified Code(s): I10 - Essential (primary) hypertension (13) History of stroke Code(s): Z86.73 - PRSNL HX OF TIA (TIA), AND CEREB INFRC W/O RESID DEFICITS (14) Obesity, Class III, BMI 40-49.9 (morbid obesity) Assessment/Plan: counseled on weight loss Code(s): E66.01 - MORBID (SEVERE) OBESITY DUE TO EXCESS CALORIES (15) COVID-19 ruled out Assessment/Plan: PCR negative Code(s): Z03.818 - ENCNTR FOR OBS FOR SUSP EXPSR TO OTH BIOLG AGENTS RULED OUT Visit type - Emergency Visit Emergency Visit: Yes ED Registration Date: 02/24/20 Care time: The patient presented to the Emergency Department on the above date and was hospitalized for further evaluation of their emergent condition. - New Patient This patient is new to me today: No - Critical Care Critical Care patient: No - Discharge Referral Referred to [facility] Med P.C.: No
--- NOTE | 2020-02-27 09:17 | PN ---
Progress Note, Physician History of Present Illness: Denies recurrent near or true syncope, vascular US r/o recurrent DVT pending. - Current Medication List Current Medications: Active Medications Albuterol/Ipratropium (Duoneb -) 1 amp NEB Q6H PRN PRN Reason: Dyspnea Last Admin: 02/27/20 08:40 Dose: 1 amp Documented by: Bacitracin (Bacitracin -) 1 applic TP DAILY [facility] Clonazepam (Klonopin -) 0.5 mg PO BID [facility] Last Admin: 02/26/20 22:00 Dose: 0.5 mg Documented by: Dabigatran (Pradaxa -) 150 mg PO BID [facility] Last Admin: 02/26/20 22:01 Dose: 150 mg Documented by: Ergocalciferol (Drisdol -) 50,000 unit PO Q7D@1000 [facility] Ferrous Sulfate (Feosol -) 325 mg PO DAILY [facility] Fluoxetine HCl (Prozac -) 40 mg PO AM [facility] Last Admin: 02/27/20 06:32 Dose: Not Given Documented by: Fluticasone Propionate (Flonase -) 1 spray NS DAILY [facility] Folic Acid (Folic Acid -) 4 mg PO DAILY [facility] Furosemide (Lasix -) 20 mg PO DAILY [facility] Gabapentin (Neurontin -) 800 mg PO TID [facility] Last Admin: 02/27/20 06:32 Dose: Not Given Documented by: Ceftriaxone Sodium 1 gm/ (Dextrose) 50 mls @ 100 mls/hr IVPB DAILY [facility] Doxycycline Hyclate 100 mg/ (Dextrose) 100 mls @ 100 mls/hr IVPB BID [facility] Last Admin: 02/26/20 22:09 Dose: 100 mls/hr Documented by: Sodium Chloride (Normal Saline -) 1,000 mls @ 75 mls/hr IV ASDIR [facility] Last Admin: 02/26/20 14:29 Dose: Not Given Documented by: Insulin Aspart (Novolog Vial Sliding Scale -) 1 vial SQ ACHS [facility]; Protocol Last Admin: 02/27/20 06:28 Dose: 8 units Documented by: Lamotrigine (Lamictal -) 75 mg PO BID [facility] Last Admin: 02/26/20 23:06 Dose: 75 mg Documented by: Lisinopril (Prinivil) 20 mg PO DAILY [facility] Loperamide HCl (Imodium -) 2 mg PO QID PRN PRN Reason: DIARRHEA Loratadine (Claritin -) 10 mg PO DAILY PRN PRN Reason: ALLERGIES Metoprolol Succinate (Toprol Xl -) 25 mg PO DAILY [facility] Oxycodone HCl (Roxicodone -) 10 mg PO Q8H PRN PRN Reason: PAIN LEVEL 6-10 Last Admin: 02/27/20 03:57 Dose: 10 mg Documented by: Pantoprazole Sodium (Protonix -) 40 mg PO DAILY [facility] Pramipexole Dihydrochloride (Mirapex -) 1 mg PO BID [facility] Last Admin: 02/26/20 22:01 Dose: 1 mg Documented by: Silver Sulfadiazine (Silvadene -) 1 applic TP DAILY [facility] Simethicone (Mylicon -) 80 mg PO QID PRN PRN Reason: GAS Tiotropium [place] (Spiriva Respimat) 2 puff IH DAILY [facility] Topiramate (Topamax -) 50 mg PO BID [facility] Last Admin: 02/26/20 23:06 Dose: 50 mg Documented by: Zolpidem Tartrate (Ambien -) 10 mg PO HS PRN PRN Reason: AGITATION - Objective Vital Signs: Vital Signs Temperature 97.8 F 02/27/20 06:00 Pulse Rate 90 02/27/20 06:00 Respiratory Rate 20 02/27/20 06:00 Blood Pressure 110/64 02/27/20 06:00 O2 Sat by Pulse Oximetry (%) 99 02/27/20 02:00 Constitutional: Yes: No Distress, Calm Neck: Yes: Supple Cardiovascular: Yes: Regular Rate and Rhythm Respiratory: Yes: On Nasal O2, SOB Gastrointestinal: Yes: Soft, Abdomen, Obese, Hypoactive Bowel Sounds Edema: No Labs: CBC, BMP 02/26/20 14:11 02/26/20 14:11 INR, PTT INR 1.13 (0.83-1.09) H 02/26/20 14:11 - ....Imaging EKG: Report Reviewed (Tele: NSR) Assessment/Plan Problem List - Problems (1) Pre-syncope Code(s): R55 - SYNCOPE AND COLLAPSE (2) DVT prophylaxis Code(s): [id number] - (3) Diabetes mellitus, insulin dependent (IDDM), uncontrolled Code(s): E10.65 - TYPE 1 DIABETES MELLITUS WITH HYPERGLYCEMIA Qualifiers: Diabetes mellitus complication status: without complication Qualified Code(s): E10.65 - Type 1 diabetes mellitus with hyperglycemia (4) HTN (hypertension) Code(s): I10 - ESSENTIAL (PRIMARY) HYPERTENSION Qualifiers: Hypertension type: essential hypertension Qualified Code(s): I10 - Essential (primary) hypertension (5) History of stroke Code(s): Z86.73 - PRSNL HX OF TIA (TIA), AND CEREB INFRC W/O RESID DEFICITS (6) Hypercholesterolemia Code(s): E78.00 - PURE HYPERCHOLESTEROLEMIA, UNSPECIFIED (7) MARILU (obstructive sleep apnea) Code(s): G47.33 - OBSTRUCTIVE SLEEP APNEA (ADULT) (PEDIATRIC) (8) Obesity, Class III, BMI 40-49.9 (morbid obesity) Code(s): E66.01 - MORBID (SEVERE) OBESITY DUE TO EXCESS CALORIES (9) Stroke Code(s): I63.9 - CEREBRAL INFARCTION, UNSPECIFIED Qualifiers: CVA mechanism: unspecified Qualified Code(s): I63.9 - Cerebral infarction, unspecified (10) Tachycardia Code(s): R00.0 - TACHYCARDIA, UNSPECIFIED (11) Syncope Code(s): R55 - SYNCOPE AND COLLAPSE Qualifiers: Syncope type: unspecified Qualified Code(s): R55 - Syncope and collapse Assessment/Plan 02/26/2020 Echo: Normal LV size and fxn LVEF 55-60% w/o sig valve abnl 1. Recurrent syncope probably neuro-cardiogenic syncope, unclear vaso-depressor vs. cardio-inhibitory, cannot exclude vaso-vagal syncope, history of palpitations with no evidence of sustained arrhythmia 2. COPD, chronic bronchitis 3. Sinus tachycardia, reactionary to above 4. Chest pain syndrome/CAD angina pectoris 5. Diastolic LV dysfunction with class 0-I NYHA classification LV failure, compensated/euvolemic 6. Hypertension 7. Diabetes mellitus 8. Hypercholesterolemia 9. Hypothyroidism 10. Obstructive sleep apnea 11. Anxiety disorder 12. LAD declines biopsy 13. B/L Popliteal/posterior tibial DVT and intermediate risk V/Q on 01/15/20 On pradaxa PLAN: 1. Decreased Lasix 20 qd, continue lisinopril 20 qd, Pradaxa 150 bid, Toprol XL 25 qd 2. Addressed abortive maneuvers once prodromal sxs experienced 3. Bronchodilators, empiric abx course, O2 as needed, repeat sleep study for cpap titration as outpatient 4. UGI series and colonoscopy per GI, f/u repeat vascular US to assess for recurrent DVT
[2020-02-27] MEDS ORDERED: FUROSEMIDE 40 MG TABLET (FP) PO SCH (10:00)
[2020-02-27] MEDS ORDERED: FUROSEMIDE 20 MG TABLET (FP) PO SCH (10:00)
[2020-02-27] MEDS ORDERED: ALPRAZolam 0.25 MG TABLET PO ONE (10:15)
[2020-02-27] MEDS ORDERED: DOXYCYCLINE HYCLATE 100 MG VIAL ONE ×2 (10:35→19:52)
[2020-02-27] MEDS ORDERED: DEXTROSE 5%-WATER 100 ML IVPB ONE ×2 (10:35→19:54)
[2020-02-27] MEDS ORDERED: DEXTROSE 5%-WATER - 50 ML IVPB ONE (10:36)
[2020-02-27] MEDS ORDERED: PT OWN MED DRAWER 7, Y5N ONE ×4 (10:36→21:08)
[2020-02-27] MEDS ORDERED: cefTRIAXone SODIUM 1 GM VIAL ONE (10:36)
[2020-02-27] MEDS: SODIUM CHLORIDE 1,000 ML IV SCH (11:00)
[2020-02-27] MEDS: FERROUS SO4 325 MG TABLET (FP) PO SCH (12:04)
[2020-02-27] MEDS: DOXYCYCLINE INJECTION 100 MG in DEXTROSE 5%-WATER 100 ML IVPB SCH ×2 (12:04→21:25)
[2020-02-27] MEDS: FOLIC ACID 1 MG TABLET (FP) PO SCH (12:04)
[2020-02-27] MEDS: CEFTRIAXONE 1 GM in DEXTROSE 5%-WATER - 50 ML IVPB SCH (12:04)
[2020-02-27] MEDS: metoPROLOL SUCCINATE 25 MG TAB.SR.24H (FP) PO SCH (12:05)
[2020-02-27] MEDS: lamoTRIgine 25 MG TABLET PO SCH ×2 (12:05→21:13)
[2020-02-27] MEDS: PANTOPRAZOLE 40 MG TABLET PO SCH (12:05)
[2020-02-27] MEDS: LISINOPRIL 20 MG TABLET (FP) PO SCH (12:05)
[2020-02-27] MEDS: clonazePAM 0.5 MG TABLET PO SCH ×2 (12:05→21:13)
[2020-02-27] MEDS: PRAMIPEXOLE DIHYDROCHLORIDE 1 MG TABLET PO SCH ×2 (12:06→21:16)
[2020-02-27] MEDS: DABIGATRAN ETEXILATE MESYLATE 150 MG CAPSULE PO SCH ×2 (12:06→21:18)
[2020-02-27] MEDS: TOPIRAMATE 25 MG TABLET PO SCH ×2 (12:07→22:00)
[2020-02-27] MEDS: TIOTROPIUM BROMIDE 2.5 MCG (SPIRIVA) RESPIMAT INHALER IH SCH (12:16)
[2020-02-27] MEDS: BACITRACIN 15 GM TUBE TOPICAL OINTMENT TP SCH (17:17)
--- NOTE | 2020-02-27 17:24 | PN ---
Physical Exam: SUBJECTIVE: Patient seen and examined. Pt. still apprehensive about possible biopsy. Pt. to have Duplex today and pending results will have IVC filter placed. Pt. states she is having shortness of breath since she came to the hospital with some slight wheezing. OBJECTIVE: Vital Signs Period Temp Pulse Resp BP Sys/Giron Pulse Ox Last 24 Hr 97.7 F-98.2 F 87-105 20-24 110-147/64-73 88-99 GENERAL: Awake, alert, and fully oriented, in no acute distress. HEAD: Normal with no signs of trauma. EYES: Extraocular movements intact, sclera anicteric, conjunctiva clear. EARS, NOSE, THROAT: Ears normal, nares patent, oropharynx clear without exudates. Moist mucous membranes. NECK: Normal range of motion, supple without lymphadenopathy, JVD, or masses. LUNGS: Bibasilar crackles, no wheezing. No accessory muscle use. HEART: tachycardic regular rate and rhythm, normal S1 and S2 without murmur ABDOMEN: Soft, non-tender, protuberant but not distended, normoactive bowel sounds, no guarding, no rebound MUSCULOSKELETAL: No CVA tenderness. UPPER EXTREMITIES: warm, well-perfused. No cyanosis. No clubbing. No peripheral edema. LOWER EXTREMITIES: 2+ dorsal pedal pulses, warm, well-perfused. No calf tenderness. Trace pitting edema. NEUROLOGICAL: Moves all extremities. Normal speech. Gait not assessed PSYCHIATRIC: Cooperative. Good eye contact. Anxious. SKIN: Warm, dry, normal turgor Laboratory Results - last 24 hr 02/26/20 02/27/20 02/27/20 21:59 06:27 12:24 POC Glucometer 314 305 328 02/27/20 16:55 POC Glucometer 322 Active Medications Generic Name Dose Route Start Last Admin Trade Name Freq PRN Reason Stop Dose Admin Albuterol/Ipratropium 1 amp 02/27/20 17:08 Duoneb - NEB Q4H PRN Dyspnea Apixaban 5 mg 02/28/20 10:00 Eliquis - PO BID SHAUN Bacitracin 1 applic 02/27/20 10:00 02/27/20 17:17 Bacitracin - TP 1 applic DAILY SHAUN Administration Clonazepam 0.5 mg 02/26/20 22:00 02/27/20 12:05 Klonopin - PO 0.5 mg BID SHAUN Administration Dabigatran 150 mg 02/26/20 22:00 02/27/20 12:06 Pradaxa - PO 02/27/20 23:00 150 mg BID SHAUN Administration Ergocalciferol 50,000 unit 03/04/20 10:00 Drisdol - PO Q7D@1000 SHAUN Ferrous Sulfate 325 mg 02/27/20 10:00 02/27/20 12:04 Feosol - PO 325 mg DAILY SHAUN Administration Fluoxetine HCl 40 mg 02/27/20 07:00 02/27/20 06:32 Prozac - PO Not Given AM [facility] Fluticasone Propionate 1 spray 02/27/20 10:00 Flonase - NS DAILY [facility] Folic Acid 4 mg 02/27/20 10:00 02/27/20 12:04 Folic Acid - PO 4 mg DAILY [facility] Administration Furosemide 20 mg 02/27/20 10:00 02/27/20 12:05 Lasix - PO 20 mg DAILY SHAUN Administration Gabapentin 800 mg 02/26/20 14:00 02/27/20 13:55 Neurontin - PO 800 mg TID [facility] Administration Ceftriaxone Sodium 1 gm/ 50 mls @ 100 mls/hr 02/27/20 10:00 02/27/20 12:04 Dextrose IVPB 100 mls/hr DAILY [facility] Administration Doxycycline Hyclate 100 mg/ 100 mls @ 100 mls/hr 02/26/20 22:00 02/27/20 12:04 Dextrose IVPB 100 mls/hr BID SHAUN Administration Sodium Chloride 1,000 mls @ 75 mls/hr 02/26/20 12:58 02/27/20 11:00 Normal Saline - IV 75 mls/hr ASDIR [facility] Administration Insulin Aspart 1 vial 02/26/20 16:30 02/27/20 17:16 Novolog Vial Sliding Scale - SQ 8 units ACHS [facility] Administration Protocol Insulin Detemir 10 units 02/27/20 22:00 Levemir Vial SQ HS [facility] Lamotrigine 75 mg 02/26/20 22:00 02/27/20 12:05 Lamictal - PO 75 mg BID SHAUN Administration Lisinopril 20 mg 02/27/20 10:00 02/27/20 12:05 Prinivil PO 20 mg DAILY [facility] Administration Loperamide HCl 2 mg 02/26/20 12:58 Imodium - PO QID PRN DIARRHEA Loratadine 10 mg 02/26/20 17:47 Claritin - PO DAILY PRN ALLERGIES Metoprolol Succinate 25 mg 02/27/20 10:00 02/27/20 12:05 Toprol Xl - PO 25 mg DAILY [facility] Administration Oxycodone HCl 10 mg 02/26/20 12:58 02/27/20 03:57 Roxicodone - PO 10 mg Q8H PRN Administration PAIN LEVEL 6-10 Pantoprazole Sodium 40 mg 02/27/20 10:00 02/27/20 12:05 Protonix - PO 40 mg DAILY [facility] Administration Pramipexole Dihydrochloride 1 mg 02/26/20 22:00 02/27/20 12:06 Mirapex - PO 1 mg BID SHAUN Administration Silver Sulfadiazine 1 applic 02/27/20 10:00 Silvadene - TP DAILY [facility] Simethicone 80 mg 02/26/20 12:58 Mylicon - PO QID PRN GAS Tiotropium [place] 2 puff 02/27/20 10:00 02/27/20 12:16 Spiriva Respimat IH 2 puff DAILY [facility] Administration Topiramate 50 mg 02/26/20 22:00 02/27/20 12:07 Topamax - PO 50 mg BID SHA[facility] Administration Zolpidem Tartrate 10 mg 02/26/20 12:58 Ambien - PO HS PRN AGITATION ASSESSMENT/PLAN: Pt. is a 54 y.o. F w/ PMHx. 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 of Seizures, and recent diagnosis of b/l PE and DVT(currently on Pradxa) presents with abdominal pain and nausea and vomiting. We have been called to assess Pt. for lymphadenopathy noted on abdominal exam. #Epigastric Abdominal Pain CT AP showed paraumbilical hernia, 9x9x8 cm mid-upper pelvic L. ?adnexal cyst(complex?) with mesesnteric soft tissue stranding, 3.[address]inal enlarged LN, splenomegaly(15 cm no interval change since last year), diffuse hepatic steatosis with hepatomegaly TVUS: 10x9x8 cm L. adnexal cyst with small amount of internal debris; thickedned endometrium (7mm), 2.7 cm R adnexal cyst History strongly suspicious for Pradaxa associated gastritis will need to switch to Warfarin given that Pt. failed Lovenox and xarelto Cannot r/o malignancy/carcinomatois given B-Symptoms and strong family Hx. f/u CA-125 Ag IR consult appreciated-Discussed with IR and outpatient biopsy is recommended PAEDIATRIC PHYSIOTHERAPIST consul appreciated--->no surgical intervention GI Consult appreciated-->outpatient EGD/colonoscopy recommended(cardiology clearance appreciated) Recommend discontinuing Pradaxa, starting on Hep Gtt as a bridge to Coumadin. Pt. will start Eliquis tomorrow. f/u Duplex f/u CXR Visit type - Emergency Visit Emergency Visit: Yes ED Registration Date: 02/24/20 Care time: The patient presented to the Emergency Department on the above date and was hospitalized for further evaluation of their emergent condition. - New Patient This patient is new to me today: No - Critical Care Critical Care patient: No - Discharge Referral Referred to [facility] Med P.C.: No ATTENDING PHYSICIAN STATEMENT I saw and evaluated the patient. I reviewed the resident's note and discussed the case with the resident. I agree with the resident's findings and plan as documented. SUBJECTIVE: OBJECTIVE: ASSESSMENT AND PLAN:
[2020-02-27] MEDS: SILVER SULFADIAZINE 1% TOP CREAM 50 GM JAR TP SCH (17:34)
[2020-02-27] MEDS: FLUTICASONE PROP 0.05% 16 GM NASAL SPRAY NS SCH (17:34)
--- NOTE | 2020-02-27 21:08 | PN ---
Teaching Attending Note Name of Resident: Aldo Munson ATTENDING PHYSICIAN STATEMENT I saw and evaluated the patient. I reviewed the resident's note and discussed the case with the resident. I agree with the resident's findings and plan as documented. 54 y.o. F w/ PMHx. 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 Recent diagnosis of b/l PE and DVT(currently on Pradxa) presents with abdominal pain and nausea and vomiting. CT A/P showed paraumbilical hernia, 9x9x8 cm mid-upper pelvic L. ?adnexal cyst(complex?) with mesesnteric soft tissue stranding, 3.[address]inal enlarged LN, splenomegaly(15 cm no interval change since last year), diffuse hepatic steatosis with hepatomegaly TVUS: 10x9x8 cm L. adnexal cyst with small amount of internal debris; thickedned endometrium (7mm), 2.7 cm R adnexal cyst [place] reaction to pradaxa, associated gastritis? Being evaluated for malignancy/carcinomatois. Likely outpatient biopsy with IR. Awaiting [employer]/Onc eval. -f/u duplex -c/w a/c with apixaban -c/w current meds -d/w House Staff
[2020-02-27] MEDS ORDERED: INSULIN (LEVEMIR) 100 UNITS/ML UNITS SQ SCH (22:00)
[2020-02-28] MEDS: oxyCODONE HCL 5 MG TABLET PO PRN ×2 (00:11→21:36)
[2020-02-28] MEDS: ALBUTEROL SO4 2.5/IPRATROPIUM 0.5 INH SOL 3 ML VIAL.NEB. NEB PRN ×5 (03:30→21:22)
--- NOTE | 2020-02-28 06:08 | FALL ---
Fall Exam - Event Witnessed fall: Yes Location of Fall: Patient Room Fall from: Bed - Pre-Fall Mental Status: Alert Current Medications: Current Medications Generic Name Dose Route Start Last Admin Trade Name Freq PRN Reason Stop Dose Admin Albuterol/Ipratropium 1 amp 02/27/20 17:08 02/28/20 03:30 Duoneb - NEB 1 amp Q4H PRN Administration Dyspnea Apixaban 5 mg 02/28/20 10:00 Eliquis - PO BID SHAUN Bacitracin 1 applic 02/27/20 10:00 02/27/20 17:17 Bacitracin - TP 1 applic DAILY SHA[facility] Administration Clonazepam 0.5 mg 02/26/20 22:00 02/27/20 21:13 Klonopin - PO 0.5 mg BID SHAUN Administration Ergocalciferol 50,000 unit 03/04/20 10:00 Drisdol - PO Q7D@1000 SHAUN Ferrous Sulfate 325 mg 02/27/20 10:00 02/27/20 12:04 Feosol - PO 325 mg DAILY [facility] Administration Fluoxetine HCl 40 mg 02/27/20 07:00 02/27/20 06:32 Prozac - PO Not Given AM [facility] Fluticasone Propionate 1 spray 02/27/20 10:00 02/27/20 17:34 Flonase - NS 1 spray DAILY [facility] Administration Folic Acid 4 mg 02/27/20 10:00 02/27/20 12:04 Folic Acid - PO 4 mg DAILY [facility] Administration Furosemide 20 mg 02/27/20 10:00 02/27/20 12:05 Lasix - PO 20 mg DAILY [facility] Administration Gabapentin 800 mg 02/26/20 14:00 02/27/20 21:16 Neurontin - PO 800 mg TID SHAUN Administration Ceftriaxone Sodium 1 gm/ 50 mls @ 100 mls/hr 02/27/20 10:00 02/27/20 12:04 Dextrose IVPB 100 mls/hr DAILY [facility] Administration Doxycycline Hyclate 100 mg/ 100 mls @ 100 mls/hr 02/26/20 22:00 02/27/20 21:25 Dextrose IVPB 100 mls/hr BID SHAUN Administration Sodium Chloride 1,000 mls @ 75 mls/hr 02/26/20 12:58 02/27/20 11:00 Normal Saline - IV 75 mls/hr ASDIR SHAUN Administration Insulin Aspart 1 vial 02/26/20 16:30 02/27/20 22:03 Novolog Vial Sliding Scale - SQ 10 units ACHS SHAUN Administration Protocol Insulin Detemir 10 units 02/27/20 22:00 02/27/20 22:05 Levemir Vial SQ 10 units HS SHAUN Administration Lamotrigine 75 mg 02/26/20 22:00 02/27/20 21:13 Lamictal - PO 75 mg BID SHAUN Administration Lisinopril 20 mg 02/27/20 10:00 02/27/20 12:05 Prinivil PO 20 mg DAILY [facility] Administration Loperamide HCl 2 mg 02/26/20 12:58 Imodium - PO QID PRN DIARRHEA Loratadine 10 mg 02/26/20 17:47 Claritin - PO DAILY PRN ALLERGIES Metoprolol Succinate 25 mg 02/27/20 10:00 02/27/20 12:05 Toprol Xl - PO 25 mg DAILY [facility]UN Administration Oxycodone HCl 10 mg 02/26/20 12:58 02/28/20 00:11 Roxicodone - PO 10 mg Q8H PRN Administration PAIN LEVEL 6-10 Pantoprazole Sodium 40 mg 02/27/20 10:00 02/27/20 12:05 Protonix - PO 40 mg DAILY SHAUN Administration Pramipexole Dihydrochloride 1 mg 02/26/20 22:00 02/27/20 21:16 Mirapex - PO 1 mg BID SHAUN Administration Silver Sulfadiazine 1 applic 02/27/20 10:00 02/27/20 17:34 Silvadene - TP 1 applic DAILY [facility] Administration Simethicone 80 mg 02/26/20 12:58 Mylicon - PO QID PRN GAS Tiotropium [place] 2 puff 02/27/20 10:00 02/27/20 12:16 Spiriva Respimat IH 2 puff DAILY [facility] Administration Topiramate 50 mg 02/26/20 22:00 02/27/20 12:07 Topamax - PO 50 mg BID SHAUN Administration Zolpidem Tartrate 10 mg 02/26/20 12:58 Ambien - PO HS PRN AGITATION - Post-Fall Patient Outcome: Pain Only Exam Findings: Pain RUE; no laceration or wounds Treatment: Analgesia Vital Signs: Vital Signs Temperature 97.7 F 02/28/20 05:00 Pulse Rate 92 H 02/28/20 05:00 Respiratory Rate 24 H 02/28/20 05:00 Blood Pressure 104/65 02/28/20 05:00 O2 Sat by Pulse Oximetry (%) 97 02/28/20 05:00 LOC Post-Fall: Unchanged, Awake, Alert, Oriented Identify factors for HIGH RISK for Head Injury: Pt on anticoagulant (Pt on anticoagulant but did not hit head on a witnessed fall. Will be ordering Fall Protocol 2)
[2020-02-28] MEDS: INSULIN SLIDING SCALE (NOVOLOG) 1 VIAL SQ SCH ×4 (06:34→21:38)
[2020-02-28] MEDS: GABAPENTIN 400 MG CAPSULE PO SCH ×3 (06:35→21:36)
[2020-02-28] MEDS: FLUoxetine HCL 20 MG CAPSULE PO SCH (06:38)
[2020-02-28 06:47] LABS: HEMATOCRIT 29.2 % (32.4-45.2); HEMOGLOBIN 9.5 GM/dL (10.7-15.3); MCH 26.6 pg (25.7-33.7); MCHC 32.5 g/dl (32.0-36.0); MEAN CELL VOLUME 81.8 fl (80-96); MEAN PLT VOLUME 8.2 fl (7.5-11.1); PLATELET COUNT 429 K/MM3 (134-434); RBC 3.58 M/mm3 (3.60-5.2); RDW 14.9 % (11.6-15.6); WHITE BLOOD COUNT 9.4 K/mm3 (4.0-10.0)
--- NOTE | 2020-02-28 07:13 | PN ---
Progress Note, Physician Chief Complaint: Seen and examined in the bed . Witnessed fall last night-Pt fell off bed when dozing off to sleep. No trauma. LE duplex negative for DVT. Anticoagulation changing to eliquis tonight. History of Present Illness: 54y/o F, with a PMH of HTN, HLD, DM, CVA, COPD/Asthma (not on home o2), OA with chronic pain, bipolar disorder, and recently diagnosed b/l PE and DVTs on pradaxa (01/18/2020) who presents to the ED with epigastric pain x1 week. Pt describes the pain as intermittent, diffuse, sharp in nature, non-radiating, associated with 4 episodes of NBNB vomiting the past 4 days. - Current Medication List Current Medications: Active Medications Albuterol/Ipratropium (Duoneb -) 1 amp NEB Q4H PRN PRN Reason: Dyspnea Last Admin: 02/28/20 03:30 Dose: 1 amp Documented by: Apixaban (Eliquis -) 5 mg PO BID [facility] Bacitracin (Bacitracin -) 1 applic TP DAILY [facility] Last Admin: 02/27/20 17:17 Dose: 1 applic Documented by: Clonazepam (Klonopin -) 0.5 mg PO BID [facility] Last Admin: 02/27/20 21:13 Dose: 0.5 mg Documented by: Ergocalciferol (Drisdol -) 50,000 unit PO Q7D@1000 [facility] Ferrous Sulfate (Feosol -) 325 mg PO DAILY [facility] Last Admin: 02/27/20 12:04 Dose: 325 mg Documented by: Fluoxetine HCl (Prozac -) 40 mg PO AM [facility] Last Admin: 02/28/20 06:38 Dose: 40 mg Documented by: Fluticasone Propionate (Flonase -) 1 spray NS DAILY [facility] Last Admin: 02/27/20 17:34 Dose: 1 spray Documented by: Folic Acid (Folic Acid -) 4 mg PO DAILY [facility] Last Admin: 02/27/20 12:04 Dose: 4 mg Documented by: Furosemide (Lasix -) 20 mg PO DAILY [facility] Last Admin: 02/27/20 12:05 Dose: 20 mg Documented by: Gabapentin (Neurontin -) 800 mg PO TID [facility] Last Admin: 02/28/20 06:35 Dose: 800 mg Documented by: Ceftriaxone Sodium 1 gm/ (Dextrose) 50 mls @ 100 mls/hr IVPB DAILY [facility] Last Admin: 02/27/20 12:04 Dose: 100 mls/hr Documented by: Doxycycline Hyclate 100 mg/ (Dextrose) 100 mls @ 100 mls/hr IVPB BID [facility] Last Admin: 02/27/20 21:25 Dose: 100 mls/hr Documented by: Sodium Chloride (Normal Saline -) 1,000 mls @ 75 mls/hr IV ASDIR [facility] Last Admin: 02/27/20 11:00 Dose: 75 mls/hr Documented by: Insulin Aspart (Novolog Vial Sliding Scale -) 1 vial SQ ACHS [facility]; Protocol Last Admin: 02/28/20 06:34 Dose: 10 units Documented by: Insulin Detemir (Levemir Vial) 10 units SQ HS [facility] Last Admin: 02/27/20 22:05 Dose: 10 units Documented by: Lamotrigine (Lamictal -) 75 mg PO BID [facility] Last Admin: 02/27/20 21:13 Dose: 75 mg Documented by: Lisinopril (Prinivil) 20 mg PO DAILY [facility] Last Admin: 02/27/20 12:05 Dose: 20 mg Documented by: Loperamide HCl (Imodium -) 2 mg PO QID PRN PRN Reason: DIARRHEA Loratadine (Claritin -) 10 mg PO DAILY PRN PRN Reason: ALLERGIES Metoprolol Succinate (Toprol Xl -) 25 mg PO DAILY [facility] Last Admin: 02/27/20 12:05 Dose: 25 mg Documented by: Oxycodone HCl (Roxicodone -) 10 mg PO Q8H PRN PRN Reason: PAIN LEVEL 6-10 Last Admin: 02/28/20 00:11 Dose: 10 mg Documented by: Pantoprazole Sodium (Protonix -) 40 mg PO DAILY [facility] Last Admin: 02/27/20 12:05 Dose: 40 mg Documented by: Pramipexole Dihydrochloride (Mirapex -) 1 mg PO BID [facility] Last Admin: 02/27/20 21:16 Dose: 1 mg Documented by: Silver Sulfadiazine (Silvadene -) 1 applic TP DAILY [facility] Last Admin: 02/27/20 17:34 Dose: 1 applic Documented by: Simethicone (Mylicon -) 80 mg PO QID PRN PRN Reason: GAS Tiotropium [place] (Spiriva Respimat) 2 puff IH DAILY [facility] Last Admin: 02/27/20 12:16 Dose: 2 puff Documented by: Topiramate (Topamax -) 50 mg PO BID [facility] Last Admin: 02/27/20 22:00 Dose: 50 mg Documented by: Zolpidem Tartrate (Ambien -) 10 mg PO HS PRN PRN Reason: AGITATION - Objective Vital Signs: Vital Signs Temperature 97.7 F 02/28/20 05:57 Pulse Rate 92 H 02/28/20 05:57 Respiratory Rate 24 H 02/28/20 05:57 Blood Pressure 104/65 02/28/20 05:57 O2 Sat by Pulse Oximetry (%) 97 02/28/20 05:00 Additional Findings/Remarks: Constitutional: Yes: No Distress, Calm, Obese Eyes: Yes: WNL, Conjunctiva Clear HENT: Yes: WNL, Atraumatic, Normocephalic Neck: Yes: Supple, Trachea Midline, Lymphadenopathy Cardiovascular: Yes: WNL, Regular Rate and Rhythm Respiratory: Yes: WNL, Regular, CTA Bilaterally Gastrointestinal: Yes: Normal Bowel Sounds, Soft, Abdomen, Obese, no Tenderness ...Rectal Exam: Yes: Deferred Genitourinary: Yes: WNL Breast(s): Yes: WNL Musculoskeletal: Yes: WNL Extremities: Yes: WNL Edema: No Peripheral Pulses WNL: Yes Peripheral Pulses: Left Radial: 2+, Right Radial: 2+, Left Doralis Pedis: 2+, Right Dorsalis Pedis: 2+, Left Femoral: 2+, Right Femoral: 2+ Integumentary: Yes: WNL Neurological: Yes: WNL, Alert, Oriented ...Motor Strength: WNL Psychiatric: Yes: WNL Labs: CBC, BMP 02/26/20 14:11 INR, PTT INR 1.13 (0.83-1.09) H 02/26/20 14:11 - ....Imaging Ultrasound: Report Reviewed (no DVT in LE) Problem List - Problems (1) Prophylactic measure Assessment/Plan: FEN Fluids: poor PO intake r/t n/v Electrolytes: monitor & replete as needed Nutrition: low fat/chol DVT high risk with recent PEs pradaxa stopped yesterday-to start eliquis heparin gtt Dispo Maintain as inpatient full code discharge planning Code(s): Z29.9 - ENCOUNTER FOR PROPHYLACTIC MEASURES, UNSPECIFIED (2) HLD (hyperlipidemia) Assessment/Plan: low fat/cholertserol diet Code(s): E78.5 - HYPERLIPIDEMIA, UNSPECIFIED (3) CVA (cerebral vascular accident) Assessment/Plan: no residuals PT fall last night-maintain fall precautions TTE and cardotid dopplers both negative Code(s): I63.9 - CEREBRAL INFARCTION, UNSPECIFIED (4) COPD (chronic obstructive pulmonary disease) Assessment/Plan: no O2 needed c/w spiriva, flonase duo nebs Code(s): J44.9 - CHRONIC OBSTRUCTIVE PULMONARY DISEASE, UNSPECIFIED (5) Asthma Assessment/Plan: duonebs prn Code(s): J45.909 - UNSPECIFIED ASTHMA, UNCOMPLICATED (6) Chronic pain Assessment/Plan: chronuic back pain c/w roxicodone, gabapentin PT Code(s): G89.29 - OTHER CHRONIC PAIN (7) Pulmonary embolism, bilateral Assessment/Plan: presumed based on findings on last admission not able to perform CTA d/t dye allergy VQ scan interminate lower extrem dopplers without DVT-no need for IVCF plan to start eliquis today and will observe for allergic reaction Code(s): I26.99 - OTHER PULMONARY EMBOLISM WITHOUT ACUTE COR PULMONALE (8) Anemia Assessment/Plan: monitor cbc hgb stable c/w FeSo4 FOBT negative iron studies sent no signs of overt bleed GI to see as outpt Code(s): D64.9 - ANEMIA, UNSPECIFIED (9) Diabetes Assessment/Plan: bgm elevated lantus 10u started last night-remains high, will give bid until back on home meds BGM AC/HS with novolog sliding scale diabetic diet Code(s): E11.9 - TYPE 2 DIABETES MELLITUS WITHOUT COMPLICATIONS (10) Epigastric abdominal pain Assessment/Plan: CT abd pelvis: 10X7 cm midline /Lt paramedian paraumbillical hernia with mild mesenteric edema noted in left paramedian aspect with subq edema along pelvic wall Lt>Rt. 9 X 8 X 8cm noncalcified structure in Lt-> mid upper pelvis possible adnexal cyst, mesenteric soft tissue stranding, 3.[address], left paraaortic retroperitoneal LN's, splenomegaly (15cm), 0.4 cm non-obstructive Lt renal lower pole calculus, diffuse hepatic steatosis with hepatomegaly shown on abd sono as well, possbile carcinomatosis and TVUS showing 10X 4 X 8 cm nonspecific left adnexal cyst, 2.7 CM rt ovarian cyst, no torsion. pain resolved Code(s): R10.13 - EPIGASTRIC PAIN (11) Bipolar disorder Assessment/Plan: c/w lamictal c/w prozac Code(s): F31.9 - BIPOLAR DISORDER, UNSPECIFIED Qualifiers: (12) HTN (hypertension) Assessment/Plan: normotensive c/w lasix, lisinipril, metoprolol Code(s): I10 - ESSENTIAL (PRIMARY) HYPERTENSION Qualifiers: Hypertension type: essential hypertension Qualified Code(s): I10 - Essential (primary) hypertension (13) History of stroke Code(s): Z86.73 - PRSNL HX OF TIA (TIA), AND CEREB INFRC W/O RESID DEFICITS (14) Obesity, Class III, BMI 40-49.9 (morbid obesity) Assessment/Plan: counseled on weight loss Code(s): E66.01 - MORBID (SEVERE) OBESITY DUE TO EXCESS CALORIES (15) COVID-19 ruled out Assessment/Plan: PCR negative Code(s): Z03.818 - ENCNTR FOR OBS FOR SUSP EXPSR TO OTH BIOLG AGENTS RULED OUT Visit type - Emergency Visit Emergency Visit: Yes ED Registration Date: 02/24/20 Care time: The patient presented to the Emergency Department on the above date and was hospitalized for further evaluation of their emergent condition. - New Patient This patient is new to me today: No - Critical Care Critical Care patient: No - Discharge Referral Referred to [facility] Med P.C[facility] No
--- NOTE | 2020-02-28 09:41 | PN ---
Progress Note (short form) - Note Progress Note: Had a witnessed fall while sitting at the edge of bed, dozing from bed this am, no syncope, no apparent injury; feels fine: no CP/SOB/Palpitations; likely d/c tm Vital Signs Temperature 97.7 F 02/28/20 05:57 Pulse Rate 92 H 02/28/20 05:57 Respiratory Rate 24 H 02/28/20 05:57 Blood Pressure 104/65 02/28/20 05:57 O2 Sat by Pulse Oximetry (%) 97 02/28/20 05:00 Constitutional: Yes: No Distress, Calm Neck: Yes: Supple Cardiovascular: Yes: Regular Rate and Rhythm Respiratory: Yes: On Nasal O2, SOB Gastrointestinal: Yes: Soft, Abdomen, Obese, Hypoactive Bowel Sounds Edema: No Labs: CBC, BMP 02/28/20 06:00 02/26/20 14:11 Active Medications Albuterol/Ipratropium (Duoneb -) 1 amp NEB Q4H PRN PRN Reason: Dyspnea Last Admin: 02/28/20 08:26 Dose: 1 amp Documented by: Apixaban (Eliquis -) 5 mg PO BID [facility] Bacitracin (Bacitracin -) 1 applic TP DAILY [facility] Last Admin: 02/27/20 17:17 Dose: 1 applic Documented by: Clonazepam (Klonopin -) 0.5 mg PO BID [facility] Last Admin: 02/27/20 21:13 Dose: 0.5 mg Documented by: Ergocalciferol (Drisdol -) 50,000 unit PO Q7D@1000 [facility] Ferrous Sulfate (Feosol -) 325 mg PO DAILY [facility] Last Admin: 02/27/20 12:04 Dose: 325 mg Documented by: Fluoxetine HCl (Prozac -) 40 mg PO AM [facility] Last Admin: 02/28/20 06:38 Dose: 40 mg Documented by: Fluticasone Propionate (Flonase -) 1 spray NS DAILY [facility] Last Admin: 02/27/20 17:34 Dose: 1 spray Documented by: Folic Acid (Folic Acid -) 4 mg PO DAILY [facility] Last Admin: 02/27/20 12:04 Dose: 4 mg Documented by: Furosemide (Lasix -) 20 mg PO DAILY [facility] Last Admin: 02/27/20 12:05 Dose: 20 mg Documented by: Gabapentin (Neurontin -) 800 mg PO TID [facility] Last Admin: 02/28/20 06:35 Dose: 800 mg Documented by: Ceftriaxone Sodium 1 gm/ (Dextrose) 50 mls @ 100 mls/hr IVPB DAILY [facility] Last Admin: 02/27/20 12:04 Dose: 100 mls/hr Documented by: Doxycycline Hyclate 100 mg/ (Dextrose) 100 mls @ 100 mls/hr IVPB BID [facility] Last Admin: 02/27/20 21:25 Dose: 100 mls/hr Documented by: Sodium Chloride (Normal Saline -) 1,000 mls @ 75 mls/hr IV ASDIR [facility] Last Admin: 02/27/20 11:00 Dose: 75 mls/hr Documented by: Insulin Aspart (Novolog Vial Sliding Scale -) 1 vial SQ [facility]; Protocol Last Admin: 02/28/20 06:34 Dose: 10 units Documented by: Insulin Detemir (Levemir Vial) 10 units SQ HS [facility] Last Admin: 02/27/20 22:05 Dose: 10 units Documented by: Lamotrigine (Lamictal -) 75 mg PO BID [facility] Last Admin: 02/27/20 21:13 Dose: 75 mg Documented by: Lisinopril (Prinivil) 20 mg PO DAILY [facility] Last Admin: 02/27/20 12:05 Dose: 20 mg Documented by: Loperamide HCl (Imodium -) 2 mg PO QID PRN PRN Reason: DIARRHEA Loratadine (Claritin -) 10 mg PO DAILY PRN PRN Reason: ALLERGIES Metoprolol Succinate (Toprol Xl -) 25 mg PO DAILY [facility] Last Admin: 02/27/20 12:05 Dose: 25 mg Documented by: Oxycodone HCl (Roxicodone -) 10 mg PO Q8H PRN PRN Reason: PAIN LEVEL 6-10 Last Admin: 02/28/20 00:11 Dose: 10 mg Documented by: Pantoprazole Sodium (Protonix -) 40 mg PO DAILY [facility] Last Admin: 02/27/20 12:05 Dose: 40 mg Documented by: Pramipexole Dihydrochloride (Mirapex -) 1 mg PO BID [facility] Last Admin: 02/27/20 21:16 Dose: 1 mg Documented by: Silver Sulfadiazine (Silvadene -) 1 applic TP DAILY [facility] Last Admin: 02/27/20 17:34 Dose: 1 applic Documented by: Simethicone (Mylicon -) 80 mg PO QID PRN PRN Reason: GAS Tiotropium [place] (Spiriva Respimat) 2 puff IH DAILY [facility] Last Admin: 02/27/20 12:16 Dose: 2 puff Documented by: Topiramate (Topamax -) 50 mg PO BID [facility] Last Admin: 02/27/20 22:00 Dose: 50 mg Documented by: Zolpidem Tartrate (Ambien -) 10 mg PO HS PRN PRN Reason: AGITATION - ....Imaging EKG: Report Reviewed (Tele: NSR) Assessment/Plan Problem List - Problems (1) Pre-syncope Code(s): R55 - SYNCOPE AND COLLAPSE (2) DVT prophylaxis Code(s): [id number] - (3) Diabetes mellitus, insulin dependent (IDDM), uncontrolled Code(s): E10.65 - TYPE 1 DIABETES MELLITUS WITH HYPERGLYCEMIA Qualifiers: Diabetes mellitus complication status: without complication Qualified Code(s): E10.65 - Type 1 diabetes mellitus with hyperglycemia (4) HTN (hypertension) Code(s): I10 - ESSENTIAL (PRIMARY) HYPERTENSION Qualifiers: Hypertension type: essential hypertension Qualified Code(s): I10 - Essential (primary) hypertension (5) History of stroke Code(s): Z86.73 - PRSNL HX OF TIA (TIA), AND CEREB INFRC W/O RESID DEFICITS (6) Hypercholesterolemia Code(s): E78.00 - PURE HYPERCHOLESTEROLEMIA, UNSPECIFIED (7) MARILU (obstructive sleep apnea) Code(s): G47.33 - OBSTRUCTIVE SLEEP APNEA (ADULT) (PEDIATRIC) (8) Obesity, Class III, BMI 40-49.9 (morbid obesity) Code(s): E66.01 - MORBID (SEVERE) OBESITY DUE TO EXCESS CALORIES (9) Stroke Code(s): I63.9 - CEREBRAL INFARCTION, UNSPECIFIED Qualifiers: CVA mechanism: unspecified Qualified Code(s): I63.9 - Cerebral infarction, unspecified (10) Tachycardia Code(s): R00.0 - TACHYCARDIA, UNSPECIFIED (11) Syncope Code(s): R55 - SYNCOPE AND COLLAPSE Qualifiers: Syncope type: unspecified Qualified Code(s): R55 - Syncope and collapse Assessment/Plan 02/26/2020 Echo: Normal LV size and fxn LVEF 55-60% w/o sig valve abnl 1. Recurrent syncope probably neuro-cardiogenic syncope, unclear vaso-depressor vs. cardio-inhibitory, cannot exclude vaso-vagal syncope, history of palpitation s with no evidence of sustained arrhythmia 2. COPD, chronic bronchitis 3. Sinus tachycardia, reactionary to above 4. Chest pain syndrome/CAD angina pectoris 5. Diastolic LV dysfunction with class 0-I NYHA classification LV failure, compensated/euvolemic 6. Hypertension 7. Diabetes mellitus 8. Hypercholesterolemia 9. Hypothyroidism 10. Obstructive sleep apnea 11. Anxiety disorder 12. LAD declines biopsy 13. B/L Popliteal/posterior tibial DVT and intermediate risk V/Q on 01/15/20 On pradaxa PLAN: 1. D/C Lasix 20 qd,, resume if fluid overloded continue lisinopril 20 qd, apixaban 5mg bid, Toprol XL 25 qd 2. Addressed abortive maneuvers once prodromal sxs experienced 3. Bronchodilators, empiric abx course, O2 as needed, repeat sleep study for cpap titration as outpatient 4. UGI series and colonoscopy per GI, f/u repeat vascular US to assess for recurrent DVT
[2020-02-28] MEDS ORDERED: DOXYCYCLINE HYCLATE 100 MG VIAL ONE ×2 (09:57→20:53)
[2020-02-28] MEDS ORDERED: DEXTROSE 5%-WATER 100 ML IVPB ONE ×2 (09:58→20:53)
[2020-02-28] MEDS ORDERED: cefTRIAXone SODIUM 1 GM VIAL ONE (09:59)
[2020-02-28] MEDS ORDERED: PT OWN MED DRAWER 7, Y5N ONE (09:59)
[2020-02-28] MEDS ORDERED: APIXABAN 5 MG TABLET PO SCH (10:00)
[2020-02-28] MEDS ORDERED: DEXTROSE 5%-WATER - 50 ML IVPB ONE (10:00)
[2020-02-28] MEDS: FOLIC ACID 1 MG TABLET (FP) PO SCH (10:16)
[2020-02-28] MEDS: FERROUS SO4 325 MG TABLET (FP) PO SCH (10:16)
[2020-02-28] MEDS: LISINOPRIL 20 MG TABLET (FP) PO SCH (10:16)
[2020-02-28] MEDS: PRAMIPEXOLE DIHYDROCHLORIDE 1 MG TABLET PO SCH ×2 (10:16→21:36)
[2020-02-28] MEDS: clonazePAM 0.5 MG TABLET PO SCH ×2 (10:16→21:36)
[2020-02-28] MEDS: metoPROLOL SUCCINATE 25 MG TAB.SR.24H (FP) PO SCH (10:16)
[2020-02-28] MEDS: PANTOPRAZOLE 40 MG TABLET PO SCH (10:16)
[2020-02-28] MEDS: lamoTRIgine 25 MG TABLET PO SCH ×2 (10:17→21:37)
[2020-02-28] MEDS: CEFTRIAXONE 1 GM in DEXTROSE 5%-WATER - 50 ML IVPB SCH (10:17)
[2020-02-28] MEDS: DOXYCYCLINE INJECTION 100 MG in DEXTROSE 5%-WATER 100 ML IVPB SCH ×2 (10:17→21:36)
[2020-02-28] MEDS: TOPIRAMATE 25 MG TABLET PO SCH ×2 (10:17→21:37)
[2020-02-28] MEDS: BACITRACIN 15 GM TUBE TOPICAL OINTMENT TP SCH (10:22)
[2020-02-28] MEDS: TIOTROPIUM BROMIDE 2.5 MCG (SPIRIVA) RESPIMAT INHALER IH SCH (10:22)
[2020-02-28] MEDS: FLUTICASONE PROP 0.05% 16 GM NASAL SPRAY NS SCH (10:22)
[2020-02-28] MEDS: SODIUM CHLORIDE 1,000 ML IV SCH (15:55)
[2020-02-28] MEDS: SILVER SULFADIAZINE 1% TOP CREAM 50 GM JAR TP SCH (17:55)
[2020-02-28] MEDS: APIXABAN 5 MG TABLET PO SCH (21:36)
[2020-02-28] MEDS: INSULIN (LEVEMIR) 100 UNITS/ML UNITS SQ SCH (21:37)
[2020-02-29] MEDS: FLUoxetine HCL 20 MG CAPSULE PO SCH (06:45)
[2020-02-29] MEDS: oxyCODONE HCL 5 MG TABLET PO PRN (06:45)
[2020-02-29] MEDS: GABAPENTIN 400 MG CAPSULE PO SCH (06:45)
[2020-02-29] MEDS: INSULIN SLIDING SCALE (NOVOLOG) 1 VIAL SQ SCH ×2 (06:46→12:21)
[2020-02-29] MEDS: INSULIN (LEVEMIR) 100 UNITS/ML UNITS SQ SCH (06:46)
[2020-02-29] MEDS: ALBUTEROL SO4 2.5/IPRATROPIUM 0.5 INH SOL 3 ML VIAL.NEB. NEB PRN (08:10)
--- NOTE | 2020-02-29 08:11 | DS ---
Physical Exam: SUBJECTIVE: Patient seen and examined OBJECTIVE: Vital Signs Period Temp Pulse Resp BP Sys/Giron Pulse Ox Last 24 Hr 97.7 F-98.4 F 83-95 20-24 100-125/62-71 96-97 PHYSICAL EXAM Constitutional: Yes: No Distress, Calm, Obese Eyes: Yes: WNL, Conjunctiva Clear HENT: Yes: WNL, Atraumatic, Normocephalic Neck: Yes: Supple, Trachea Midline, Lymphadenopathy Cardiovascular: Yes: WNL, Regular Rate and Rhythm Respiratory: Yes: WNL, Regular, CTA Bilaterally Gastrointestinal: Yes: Normal Bowel Sounds, Soft, Abdomen, Obese, no Tenderness ...Rectal Exam: Yes: Deferred Genitourinary: Yes: WNL Breast(s): Yes: WNL Musculoskeletal: Yes: WNL Extremities: Yes: WNL Edema: No Peripheral Pulses WNL: Yes Peripheral Pulses: Left Radial: 2+, Right Radial: 2+, Left Doralis Pedis: 2+, Right Dorsalis Pedis: 2+, Left Femoral: 2+, Right Femoral: 2+ Integumentary: Yes: WNL Neurological: Yes: WNL, Alert, Oriented ...Motor Strength: WNL Psychiatric: Yes: WNL LABS Laboratory Results - last 24 hr 02/25/20 02/28/20 02/28/20 00:00 13:43 17:40 POC Glucometer 343 347 C. trachomatis (SUSHMA) Negative N.gonorrhoeae DNA (SUSHMA) Negative T. vaginalis (SUSHMA) Negative 02/28/20 02/29/20 20:39 05:42 POC Glucometer 358 283 C. trachomatis (SUSHMA) N.gonorrhoeae DNA (SUSHMA) T. vaginalis (SUSHMA) HOSPITAL COURSE: Date of Admission:02/24/20 Date of Discharge: 02/29/20 Ultrasound: Report Reviewed (no DVT in LE) Problem List - Problems (1) Prophylactic measure Assessment/Plan: FEN Fluids: improved Nutrition: low fat/chol DVT on eliquis Dispo discharge to home with [facility] Code(s): Z29.9 - ENCOUNTER FOR PROPHYLACTIC MEASURES, UNSPECIFIED (2) HLD (hyperlipidemia) Assessment/Plan: low fat/cholertserol diet Code(s): E78.5 - HYPERLIPIDEMIA, UNSPECIFIED (3) CVA (cerebral vascular accident) Assessment/Plan: no residuals Code(s): I63.9 - CEREBRAL INFARCTION, UNSPECIFIED (4) COPD (chronic obstructive pulmonary disease) Assessment/Plan: no O2 needed c/w spiriva, flonase inhaled BD Code(s): J44.9 - CHRONIC OBSTRUCTIVE PULMONARY DISEASE, UNSPECIFIED (5) Asthma Assessment/Plan: inhaled BD Code(s): J45.909 - UNSPECIFIED ASTHMA, UNCOMPLICATED (6) Chronic pain Assessment/Plan: chronic back pain c/w roxicodone, gabapentin Code(s): G89.29 - OTHER CHRONIC PAIN (7) Pulmonary embolism, bilateral Assessment/Plan: presumed based on findings on last admission not able to perform CTA d/t dye allergy VQ scan interminate lower extrem dopplers without DVT-no need for IVCF c/w eliquis Code(s): I26.99 - OTHER PULMONARY EMBOLISM WITHOUT ACUTE COR PULMONALE (8) Anemia Assessment/Plan: monitor cbc hgb stable c/w FeSo4 FOBT negative iron studies sent no signs of overt bleed GI to see as outpt Code(s): D64.9 - ANEMIA, UNSPECIFIED (9) Diabetes Assessment/Plan: better controlled resume home insulin regimine on dc Code(s): E11.9 - TYPE 2 DIABETES MELLITUS WITHOUT COMPLICATIONS (10) Epigastric abdominal pain Assessment/Plan: CT abd pelvis: 10X7 cm midline /Lt paramedian paraumbillical hernia with mild mesenteric edema noted in left paramedian aspect with subq edema along pelvic wall Lt>Rt. 9 X 8 X 8cm noncalcified structure in Lt-> mid upper pelvis possible adnexal cyst, mesenteric soft tissue stranding, 3.[address], left paraaortic retroperitoneal LN's, splenomegaly (15cm), 0.4 cm non-obstructive Lt renal lower pole calculus, diffuse hepatic steatosis with hepatomegaly shown on abd sono as well, possbile carcinomatosis and TVUS showing 10X 4 X 8 cm nonspecific left adnexal cyst, 2.7 CM rt ovarian cyst, no torsion. pain resolved for outpt lymp node bx Code(s): R10.13 - EPIGASTRIC PAIN (11) Bipolar disorder Assessment/Plan: c/w lamictal c/w prozac Code(s): F31.9 - BIPOLAR DISORDER, UNSPECIFIED Qualifiers: (12) HTN (hypertension) Assessment/Plan: normotensive c/w lasix, lisinipril, metoprolol Code(s): I10 - ESSENTIAL (PRIMARY) HYPERTENSION Qualifiers: Hypertension type: essential hypertension Qualified Code(s): I10 - Essential (primary) hypertension (13) History of stroke Code(s): Z86.73 - PRSNL HX OF TIA (TIA), AND CEREB INFRC W/O RESID DEFICITS (14) Obesity, Class III, BMI 40-49.9 (morbid obesity) Assessment/Plan: counseled on weight loss Code(s): E66.01 - MORBID (SEVERE) OBESITY DUE TO EXCESS CALORIES (15) COVID-19 ruled out Assessment/Plan: PCR negative Code(s): Z03.818 - ENCNTR FOR OBS FOR SUSP EXPSR TO OTH BIOLG AGENTS RULED OUT Minutes to complete discharge: 35 Discharge Summary Problems reviewed: Yes Reason For Visit: PULMONARY EMBOLISM Current Active Problems Abdominal pain (Acute) Adnexal mass (Acute) Anemia (Acute) Asthma (Acute) COPD (chronic obstructive pulmonary disease) (Acute) COVID-19 ruled out (Acute) CVA (cerebral vascular accident) (Acute) Chronic pain (Acute) HLD (hyperlipidemia) (Acute) Hepatic steatosis (Acute) Lymphadenopathy (Acute) Nausea & vomiting (Acute) Ovarian mass, left (Acute) Prophylactic measure (Acute) Pulmonary embolism, bilateral (Acute) Suspected COVID-19 virus infection (Acute) Condition: Improved - Instructions Diet, Activity, Other Instructions: DISCHARGE YOUR VISIT You came to the hospital because you were having abdominal pain. A CT scan was done that showed a mass near your ovary on the left side. You will need to have a biopsy done to rule of a mailgnancy/cancer. This will be done as an outpatient -you will need to be off your Eliquis (blood thinner) for 2 days prior. You will also need to have a colonscopy done as an out patient with Dr Brown. We will try to schedule them close together so you will not be off your blood thinner for long. An ultrasound was done of your legs that did not show any clots. MEDICATIONS Please continue to take your home medications as prescribed. There was some changes. see attached list DO NOT TAKE any blood thinners that you have at home (pradaxa) Continue to take the ELIQUIS/APIXABAN twice a day. DIET Continue your home diet. Low fat/cholesterol ADDITIONAL CARE Please make an appointment to see your primary care provider, Dr Serrano 2 weeks from today. ADDITIONAL INFORMATION Please call 911 or come directly to the emergency department if you experience unusual headache, vision change, shortness of breath, chest pain, numbness, tingling, loss of alertness/awareness, loss of function, unusual bleeding or any alarming symptoms. Thank you for allowing me to care for you. Prosper Mccloud, [facility], [facility] [phone] Referrals: Prudencio Holt MD [Staff Physician] - (will call you with appointment for biopsy) Shelly Flores MD [Staff Physician] - (call for appointment with ADULT BASIC EDUCATION INSTRUCTOR doctor) Dave Brown MD [Staff Physician] - (will call you with appointment for colonscopy. MUST have COVID (coronavirus) test 5 days before colonscopy) Chelly Buenrostro MD [Staff Physician] - (call for appointment-will see you after you have biopsy) Michelle Ken MD [Primary Care Provider] - 2 Weeks Keo Urias MD [Staff Physician] - 2 Weeks (call for appointment with medical physiologist in 2 weeks) Disposition: VNS/HOME HEALTH CARE - Home Medications Comprehensive Discharge Medication List: Ambulatory Orders Fluoxetine HCl [Prozac -] 40 mg PO AM 09/15/14 Albuterol Sulfate Inhaler - [Ventolin HFA Inhaler -] 1 - 2 inh PO QID PRN 03/15/16 clonazePAM [Klonopin -] 0.5 mg PO BID 05/12/17 Loratadine [Claritin] 10 mg PO DAILY PRN 09/11/17 Gabapentin [Neurontin] 800 mg PO TID 08/02/18 Lisinopril [Prinivil] 20 mg PO DAILY 09/28/18 Omeprazole 40 mg PO DAILY 02/21/19 Pramipexole Di-HCl [Mirapex] 1 mg PO BID 05/01/19 Lamotrigine [Lamictal -] 75 mg PO BID 09/05/19 Ergocalciferol (Vitamin D2) [Vitamin D2] 50,000 unit PO Q7D #5 capsule 12/06/19 Cyanocobalamin Vit B-12 Inj. [Vitamin B12 Injection -] 1,000 mcg IJ WEEKLY 01/16/20 Fluticasone Propionate [Flovent Hfa] 2 puff IH BID 01/16/20 Insulin Lispro [Humalog] 35 unit SQ TID 01/16/20 Meloxicam 15 mg PO DAILY 01/16/20 Sitagliptin Phos/Metformin HCl [Janumet Xr 50-1,000 mg Tablet] 1 tab PO BID 01/16/20 Sumatriptan Succinate [Imitrex -] 25 mg PO PRN PRN 01/16/20 Albuterol Sulfate [Proair Hfa] 8.5 gm IH Q4H 02/24/20 Bacitracin Zinc 1 gm TP DAILY 02/24/20 Ferrous Sulfate 325 mg PO DAILY 02/24/20 Fluticasone Prop 0.05% Nasal [Flonase -] 1 spray NS DAILY 02/24/20 Folic Acid - 4 mg PO DAILY 02/24/20 Hydrocodone/Acetaminophen [[place] 10-325 Tablet] 1 each PO BID MDD 3 02/24/20 Insulin Lispro Protamin/Lispro [Humalog Mix 50-50 Kwikpen] 0 unit SQ ASDIR 02/24/20 Loperamide HCl [Loperamide] 2 mg PO QID PRN 02/24/20 Loratadine [Claritin] 10 mg PO DAILY 02/24/20 Metoprolol Succinate 25 mg PO DAILY 02/24/20 Olopatadine HCl 5 ml OP BID 02/24/20 Omeprazole 40 mg PO DAILY 02/24/20 Semaglutide [Ozempic] 1 mg SQ ASDIR 02/24/20 Silver Sulfadiazine [Silvadene] 20 gm TP DAILY 02/24/20 Simethicone [Gas Relief 80] 80 mg PO QID PRN 02/24/20 Tiotropium [place] [Spiriva] 18 mcg IH DAILY 02/24/20 Topiramate 50 mg PO BID 02/24/20 Zolpidem Tartrate [Ambien] 10 mg PO HS 02/24/20 Apixaban [Eliquis -] 5 mg PO BID #60 tablet 02/29/20 Insulin Sliding Scale [Novolog Vial Sliding Scale -] 1 vial SQ ACHS units 02/29/20 oxyCODONE HCL [Roxicodone -] 10 mg PO Q8H PRN tablet 02/29/20 Prescription Drug Monitoring Program (I-STOP) results: I-STOP reviewed and no issues identified Problem List - Problems (1) Prophylactic measure Code(s): Z29.9 - ENCOUNTER FOR PROPHYLACTIC MEASURES, UNSPECIFIED (2) HLD (hyperlipidemia) Code(s): E78.5 - HYPERLIPIDEMIA, UNSPECIFIED (3) CVA (cerebral vascular accident) Code(s): I63.9 - CEREBRAL INFARCTION, UNSPECIFIED (4) COPD (chronic obstructive pulmonary disease) Code(s): J44.9 - CHRONIC OBSTRUCTIVE PULMONARY DISEASE, UNSPECIFIED (5) Asthma Code(s): J45.909 - UNSPECIFIED ASTHMA, UNCOMPLICATED (6) Chronic pain Code(s): G89.29 - OTHER CHRONIC PAIN (7) Pulmonary embolism, bilateral Code(s): I26.99 - OTHER PULMONARY EMBOLISM WITHOUT ACUTE COR PULMONALE (8) Anemia Code(s): D64.9 - ANEMIA, UNSPECIFIED (9) Diabetes Code(s): E11.9 - TYPE 2 DIABETES MELLITUS WITHOUT COMPLICATIONS (10) Epigastric abdominal pain Code(s): R10.13 - EPIGASTRIC PAIN (11) Bipolar disorder Code(s): F31.9 - BIPOLAR DISORDER, UNSPECIFIED Qualifiers: (12) HTN (hypertension) Code(s): I10 - ESSENTIAL (PRIMARY) HYPERTENSION Qualifiers: Hypertension type: essential hypertension Qualified Code(s): I10 - Essential (primary) hypertension (13) History of stroke Code(s): Z86.73 - PRSNL HX OF TIA (TIA), AND CEREB INFRC W/O RESID DEFICITS (14) Obesity, Class III, BMI 40-49.9 (morbid obesity) Code(s): E66.01 - MORBID (SEVERE) OBESITY DUE TO EXCESS CALORIES (15) COVID-19 ruled out Code(s): Z03.818 - ENCNTR FOR OBS FOR SUSP EXPSR TO OTH BIOLG AGENTS RULED OUT This patient is new to me today: No Emergency Visit: Yes ED Registration Date: 02/24/20 Care time: The patient presented to the Emergency Department on the above date and was hospitalized for further evaluation of their emergent condition. Critical Care patient: No - Discharge Referral Referred to [facility] Med P.C.: No
[2020-02-29 08:19] LABS: HEMATOCRIT 28.9 % (32.4-45.2); HEMOGLOBIN 9.5 GM/dL (10.7-15.3); MCHC 32.9 g/dl (32.0-36.0); MEAN CELL VOLUME 82.2 fl (80-96); MEAN PLT VOLUME 8.3 fl (7.5-11.1); PLATELET COUNT 437 K/MM3 (134-434); RBC 3.52 M/mm3 (3.60-5.2); RDW 15.1 % (11.6-15.6); WHITE BLOOD COUNT 9.1 K/mm3 (4.0-10.0)
--- NOTE | 2020-02-29 08:19 | PN.HO ---
Progress Note (short form) - Note Progress Note: PAtient seen and examined Denies any specific complaints AFVSS Cor: RSR, No murmurs, No gallops Lungs: Clear to P&A Abd: Soft, Normal bowel sounds, Ext:No significant edema Labs/MEds reviewed a/P 54 y.o. F w/ PMHx. of obesity,HTN, HLD, DM, CVA(2015 with residual L. sided weakness), COPD, GERD, asthma, OA, Bipolar Disorder, Hx. of Seizures, and recent diagnosis of b/l DVT and ??PE(was on Pradxa) presents with abdominal pain and nausea and vomiting. We have been called to assess Patient . for lymphadenopathy CT AP showed paraumbilical hernia, 9x9x8 cm mid-upper pelvic L. ?adnexal cyst(complex?) with mesesnteric soft tissue stranding, 3.[address] inguinal enlarged LN, fatty liver,splenomegaly(15 cm no interval change since last year), diffuse hepatic steatosis with hepatomegaly pelvic, retroperitoneal, inguinal adenopathy. ? left pelvic mesenteric --? carcinomatosis. uterus enlarged TVUS: 10x9x8 cm L. adnexal cyst with small amount of internal debris; thickedned endometrium (7mm), 2.7 cm R adnexal cyst CA125 44 B/L Popliteal/posterior tibial DVT and intermediate risk V/Q on 01/15/20. Repeat duplex is negative on 02/26 On pradaxa with ? gi toxicity switched to eliquis had detailed discussions about vairous a/c options will need nursing specialist onc eval --adnexal mass/thickened endometrium GI Consult appreciated-->outpatient EGD/colonoscopy recommended + family h/o cancer -- no h/o breast/ovarian ca. + h/o gastric cancer Discussed in great detail with patient concerns regarding carcinomatosis/malignant adenopathy--need to f/u with SENIOR BIOINFORMATICS SPECIALIST-ONC/GI and Heme-Onc teams as outpatient. Gave her contact nos. Discussed that she should seek immediate attenttion with Heme-onc teams as outpatient. Patient understands the need to consult Heme-onc/GI/SENIOR BIOINFORMATICS SPECIALIST onnc teams as outpatient
[2020-02-29 08:54] LABS: POTASSIUM 4.8 mmol/L (3.5-5.1)
[2020-02-29 09:16] LABS: ALBUMIN 2.7 g/dl (3.4-5.0); BILIRUBIN,TOTAL 0.2 mg/dL (0.2-1); BLOOD UREA NITROGEN 14.1 mg/dL (7-18); MAGNESIUM 2.2 mg/dL (1.8-2.4); TOT PROT 6.8 g/dl (6.4-8.2)
[2020-02-29 09:29] VITALS: BP 91/54; PULSE 91; TEMP 98.4
[2020-02-29] MEDS: FOLIC ACID 1 MG TABLET (FP) PO SCH (10:13)
[2020-02-29] MEDS: LISINOPRIL 20 MG TABLET (FP) PO SCH (10:13)
[2020-02-29] MEDS: APIXABAN 5 MG TABLET PO SCH (10:14)
[2020-02-29] MEDS: clonazePAM 0.5 MG TABLET PO SCH (10:14)
[2020-02-29] MEDS: FERROUS SO4 325 MG TABLET (FP) PO SCH (10:14)
[2020-02-29] MEDS: metoPROLOL SUCCINATE 25 MG TAB.SR.24H (FP) PO SCH (10:14)
[2020-02-29] MEDS ORDERED: PT OWN MED DRAWER 7, Y5N ONE ×2 (10:15→11:10)
[2020-02-29] MEDS: TOPIRAMATE 25 MG TABLET PO SCH (10:15)
[2020-02-29] MEDS: PANTOPRAZOLE 40 MG TABLET PO SCH (10:16)
[2020-02-29] MEDS: TIOTROPIUM BROMIDE 2.5 MCG (SPIRIVA) RESPIMAT INHALER IH SCH (10:16)
[2020-02-29] MEDS: SILVER SULFADIAZINE 1% TOP CREAM 50 GM JAR TP SCH (10:16)
[2020-02-29] MEDS: PRAMIPEXOLE DIHYDROCHLORIDE 1 MG TABLET PO SCH (10:16)
[2020-02-29] MEDS: lamoTRIgine 25 MG TABLET PO SCH (10:17)
[2020-02-29] MEDS: BACITRACIN 15 GM TUBE TOPICAL OINTMENT TP SCH (10:17)
[2020-02-29] MEDS: FLUTICASONE PROP 0.05% 16 GM NASAL SPRAY NS SCH (10:17)
[2020-03-04] MEDS ORDERED: ERGOCALCIFEROL (VIT D2) 50,000 UNIT (1.25 MG) CAPSULE PO SCH (10:00)
== END 2020-02-29 14:47 | disposition home health service (06) | DRG 694 ==
LOC: JER 13:03 → JERBED 21:59 → J8W 02-25 15:14 → J4W 02-26 15:28
PROVIDERS: ADMIT Internal Medicine; ATTEND Nurse Practitioner Acute Care
DX: C80.0 Disseminated malignant neoplasm, unspecified (principal); G47.33 Obstructive sleep apnea (adult) (pediatric); J44.9 Chronic obstructive pulmonary disease, unspecified; R55 Syncope and collapse; B19.20 Unspecified viral hepatitis C without hepatic coma; R59.1 Generalized enlarged lymph nodes; E66.01 Morbid (severe) obesity due to excess calories; R16.1 Splenomegaly, not elsewhere classified; I10 Essential (primary) hypertension; Z86.73 Personal history of transient ischemic attack (TIA), and cerebral infarction without residual deficits; F31.9 Bipolar disorder, unspecified; E78.5 Hyperlipidemia, unspecified; R16.0 Hepatomegaly, not elsewhere classified; E11.65 Type 2 diabetes mellitus with hyperglycemia; I82.403 Acute embolism and thrombosis of unspecified deep veins of lower extremity, bilateral; I26.99 Other pulmonary embolism without acute cor pulmonale; G89.29 Other chronic pain; E03.9 Hypothyroidism, unspecified; I69.354 Hemiplegia and hemiparesis following cerebral infarction affecting left non-dominant side; R11.2 Nausea with vomiting, unspecified; N20.0 Calculus of kidney; N83.202 Unspecified ovarian cyst, left side; N85.8 Other specified noninflammatory disorders of uterus; D64.9 Anemia, unspecified; K76.0 Fatty (change of) liver, not elsewhere classified; I25.10 Atherosclerotic heart disease of native coronary artery without angina pectoris; M54.5 Low back pain; R00.0 Tachycardia, unspecified
CPT/HCPCS: 36415; 36600; 71045-TC-FY; 73060-TC-RT-FY; 74176-TC; 76705-TC; 76830-TC; 80053; 81003; 82272; 82550; 82553; 82728; 82803; 82962; 83540; 83550; 83605; 83615; 83690; 83735; 84100; 84484; 84550; 84703; 85025; 85027; 85379; 85610; 85730; 86304; 87086; 87491; 87591; 87661; 93005; 93010; 93306-TC; 93880-TC; 93970-TC; 94640; 97116-GP; 97161-GP; 99285-25; J0131; J1644; J7030; U0003

== ENCOUNTER 2020-12-22 11:58 | Inpatient (IN) | payer OTHER ==
[2020-12-22] MEDS ORDERED: DEXAMETHASONE SOD PHOSPHATE 10 MG/1 ML VIAL ONE (12:15)
[2020-12-22] MEDS ORDERED: FUROSEMIDE 100 MG/10 ML INJECTABLE VIAL IVPB ONE (12:45)
[2020-12-22] MEDS ORDERED: FUROSEMIDE 40 MG/4 ML INJECTABLE VIAL ONE ×2 (13:08→20:23)
[2020-12-22 13:40] LABS: BASO % 0.5 % (0-2.0); EOS % 0.6 % (0-4.5); HEMATOCRIT 22.5 % (32.4-45.2); HEMOGLOBIN 7.6 GM/dL (10.7-15.3); LYMPH % 13.9 % (8-40); MCH 32.3 pg (25.7-33.7); MCHC 33.8 g/dl (32.0-36.0); MEAN CELL VOLUME 95.5 fl (80-96); MEAN PLT VOLUME 9.6 fl (7.5-11.1); MONO % 12.6 % (3.8-10.2); NEUT % 72.4 % (42.8-82.8); PLATELET COUNT 58 K/MM3 (134-434); RBC 2.35 M/mm3 (3.60-5.2); RDW 16.4 % (11.6-15.6)
[2020-12-22 13:47] LABS: PROTHROMBIN TIME (PATIENT) 12.1 SEC (9.7-13.0)
[2020-12-22 13:49] LABS: ACTIVATED PTT 17.9 SECONDS (25.2-36.5)
[2020-12-22 13:50] LABS: WHITE BLOOD COUNT 1.9 K/mm3 (4.0-10.0)
[2020-12-22 14:19] LABS: CALCIUM 8.5 mg/dL (8.5-10.1)
[2020-12-22 14:20] LABS: ALBUMIN 2.9 g/dl (3.4-5.0); BLOOD UREA NITROGEN 14.5 mg/dL (7-18)
[2020-12-22 14:23] LABS: CREATININE 0.9 mg/dL (0.55-1.3)
[2020-12-22 14:24] LABS: BILIRUBIN,TOTAL 1.4 mg/dL (0.2-1)
[2020-12-22 14:25] LABS: TOT PROT 7.1 g/dl (6.4-8.2)
[2020-12-22] MEDS ORDERED: FUROSEMIDE 40 MG/4 ML INJECTABLE VIAL IVPUSH ONE (14:53)
[2020-12-22 15:45] LABS: ANISOCYTOSIS 1+; MACROCYTOSIS 0; PLATELET ESTIMATE DECREASED; TEAR DROP CELLS 1+
[2020-12-22 16:22] LABS: EPI CELLS 11 /uL (0-25.1); HYALINE CASTS 0 /uL (0-3.1); URINE APPEARANCE CLOUDY; URINE BACTERIA >9,000 /uL (0-1359); URINE BILIRUBIN NEGATIVE (NEGATIVE); URINE COLOR YELLOW; URINE GLUCOSE (UA) NEGATIVE (NEGATIVE); URINE KETONE NEGATIVE (NEGATIVE); URINE LEUK ESTERASE NEGATIVE (NEGATIVE); URINE NITRITE NEGATIVE (NEGATIVE); URINE PROTEIN TRACE (NEGATIVE); URINE RBC 922 /uL (0-23.9); URINE WBC 45 /uL (0-25.8)
[2020-12-22] MEDS ORDERED: GABAPENTIN 400 MG CAPSULE PO ONE (17:19)
[2020-12-22] MEDS ORDERED: GABAPENTIN 100 MG CAPSULE ONE (17:26)
[2020-12-22 18:50] LABS: ARTERIAL BLD GAS O2 SATURATION 99.4 mmHg (95-98); ARTERIAL BLOOD GAS PO2 204.5 mmHg (80-100); ARTERIAL BLOOD GAS pH 7.439 (7.350-7.450)
[2020-12-22 18:58] LABS: ALLENS TEST POSITIVE
[2020-12-22 18:59] LABS: VENT MODE S/T; VENT RATE 14
[2020-12-22] MEDS ORDERED: PIPERACILLIN/TAZOB 4.5 GM 4.5 GM in DEXTROSE 5%-WATER 100 ML IVPB ONE (18:59)
[2020-12-22] MEDS ORDERED: VANCOMYCIN 1 GM in D5W (PRE-DOCKED) 1,000 MG/250 ML IVPB ONE (21:45)
[2020-12-22] MEDS ORDERED: APIXABAN 5 MG TABLET ONE (22:32)
[2020-12-22] MEDS ORDERED: VANCOMYCIN 1 GRAM (PRE-DOCKED) 1,000 MG/250 ML BAG IVPB ONE (22:32)
[2020-12-22] MEDS: APIXABAN 5 MG TABLET PO SCH (22:47)
[2020-12-23] MEDS ORDERED: FUROSEMIDE 40 MG/4 ML INJECTABLE VIAL IVPUSH ONE (02:00)
[2020-12-23] MEDS ORDERED: DEXTROSE 5%-WATER - 50 ML IVPB ONE ×3 (02:19→16:51)
[2020-12-23] MEDS ORDERED: PIPERACILLIN/TAZOBACTAM 2.25 GM VIAL IVPB ONE ×2 (02:19→09:41)
[2020-12-23] MEDS: oxyCODONE HCL 5 MG TABLET PO PRN ×3 (02:44→21:14)
[2020-12-23] MEDS: PIPERACILLIN/TAZOB 2.25 GM 2.25 GM in DEXTROSE 5%-WATER - 50 ML IVPB SCH ×2 (02:47→09:45)
[2020-12-23] MEDS: ACETAMINOPHEN 325 MG TABLET (FP) PO PRN (02:48)
[2020-12-23] MEDS ORDERED: PT OWN MED DRAWER 7, Y5N ONE (09:40)
[2020-12-23] MEDS: LISINOPRIL 20 MG TABLET PO SCH (09:45)
[2020-12-23] MEDS: metoPROLOL SUCCINATE 25 MG TAB.SR.24H (FP) PO SCH (09:45)
[2020-12-23] MEDS: SPIRONOLACTONE 25 MG TABLET PO SCH (09:45)
[2020-12-23] MEDS: TIOTROPIUM BROMIDE 2.5 MCG (SPIRIVA) RESPIMAT INHALER IH SCH (09:46)
[2020-12-23 11:02] LABS: CHLORIDE 104 mmol/L (98-107); SODIUM 137 mmol/L (136-145)
[2020-12-23 11:07] LABS: ALBUMIN 2.9 g/dl (3.4-5.0); ANION GAP 10 MMOL/L (8-16); CALCIUM 8.7 mg/dL (8.5-10.1); CO2 22 mmol/L (21-32)
[2020-12-23 11:08] LABS: BLOOD UREA NITROGEN 31.1 mg/dL (7-18)
[2020-12-23 11:10] LABS: SGOT/AST 43 U/L (15-37); SGPT/ALT 19 U/L (13-61)
[2020-12-23 11:11] LABS: CREATININE 1.2 mg/dL (0.55-1.3); PHOSPHOROUS 4.2 mg/dL (2.5-4.9)
[2020-12-23 11:12] LABS: BILIRUBIN,TOTAL 1.2 mg/dL (0.2-1); TOT PROT 7.2 g/dl (6.4-8.2)
[2020-12-23 11:13] LABS: ALK PHOS 193 U/L (45-117)
[2020-12-23 11:16] LABS: GLUCOSE,RANDOM 476 mg/dL (74-106)
[2020-12-23] MEDS ORDERED: ALBUTEROL SO4 2.5/IPRATROPIUM 0.5 INH SOL 3 ML VIAL.NEB. NEB PRN (11:36)
[2020-12-23] MEDS ORDERED: INSULIN (LEVEMIR) 100 UNITS/ML UNITS SQ ONE (11:45)
[2020-12-23] MEDS: lamoTRIgine 25 MG TABLET PO SCH (11:54)
[2020-12-23] MEDS: APIXABAN 5 MG TABLET PO SCH ×2 (11:54→21:15)
[2020-12-23] MEDS: FUROSEMIDE 40 MG/4 ML INJECTABLE VIAL IVPUSH SCH (11:58)
[2020-12-23 12:28] LABS: HEMATOCRIT 30.6 % (32.4-45.2); HEMOGLOBIN 10.4 GM/dL (10.7-15.3); MCHC 33.9 g/dl (32.0-36.0); MEAN CELL VOLUME 91.5 fl (80-96); MEAN PLT VOLUME 9.5 fl (7.5-11.1); PLATELET COUNT 65 K/MM3 (134-434); RBC 3.35 M/mm3 (3.60-5.2); RDW 17.7 % (11.6-15.6)
[2020-12-23 12:32] LABS: WHITE BLOOD COUNT 1.9 K/mm3 (4.0-10.0)
[2020-12-23] MEDS: ALBUTEROL SO4 0.083% IH SOL 2.5 MG/3 ML VIAL.NEB. NEB SCH ×2 (15:10→20:45)
[2020-12-23] MEDS ORDERED: PIPERACILLIN/TAZOBACTAM 3.375 GM VIAL IVPB ONE (16:50)
[2020-12-23] MEDS ORDERED: Insulin (LOG) Aspart 100 UNITS/ML VIAL SQ ONE (17:08)
[2020-12-23] MEDS: PIPERACILLIN/TAZOB 3.375 GM 3.375 GM in DEXTROSE 5%-WATER - 50 ML IVPB SCH (17:16)
[2020-12-23] MEDS: INSULIN SLIDING SCALE (NOVOLOG) 1 VIAL SQ SCH (21:16)
[2020-12-23] MEDS: INSULIN (LEVEMIR) 100 UNITS/ML UNITS SQ SCH (21:16)
[2020-12-24] MEDS ORDERED: PIPERACILLIN/TAZOBACTAM 3.375 GM VIAL IVPB ONE ×2 (00:44→10:57)
[2020-12-24] MEDS ORDERED: DEXTROSE 5%-WATER - 50 ML IVPB ONE ×2 (00:45→10:57)
[2020-12-24] MEDS: ALBUTEROL SO4 0.083% IH SOL 2.5 MG/3 ML VIAL.NEB. NEB SCH ×6 (01:00→21:00)
[2020-12-24] MEDS: PIPERACILLIN/TAZOB 3.375 GM 3.375 GM in DEXTROSE 5%-WATER - 50 ML IVPB SCH ×2 (01:14→11:07)
[2020-12-24] MEDS ORDERED: PIPERACILLIN/TAZOB 2.25 GM 2.25 GM in DEXTROSE 5%-WATER - 50 ML IVPB SCH (02:00)
[2020-12-24] MEDS: oxyCODONE HCL 5 MG TABLET PO PRN (02:36)
[2020-12-24] MEDS: ACETAMINOPHEN 325 MG TABLET (FP) PO PRN (02:37)
[2020-12-24] MEDS: INSULIN SLIDING SCALE (NOVOLOG) 1 VIAL SQ SCH ×4 (06:53→22:05)
[2020-12-24] MEDS: metoPROLOL SUCCINATE 25 MG TAB.SR.24H (FP) PO SCH (11:03)
[2020-12-24] MEDS: SPIRONOLACTONE 25 MG TABLET PO SCH (11:03)
[2020-12-24] MEDS: LISINOPRIL 20 MG TABLET PO SCH (11:03)
[2020-12-24] MEDS: FUROSEMIDE 40 MG/4 ML INJECTABLE VIAL IVPUSH SCH (11:03)
[2020-12-24] MEDS: APIXABAN 5 MG TABLET PO SCH ×2 (11:03→21:45)
[2020-12-24] MEDS: lamoTRIgine 25 MG TABLET PO SCH (11:03)
[2020-12-24] MEDS: TIOTROPIUM BROMIDE 2.5 MCG (SPIRIVA) RESPIMAT INHALER IH SCH (11:07)
[2020-12-24 12:38] LABS: BASO % 0.3 % (0-2.0); EOS % 0.5 % (0-4.5); HEMATOCRIT 31.3 % (32.4-45.2); HEMOGLOBIN 10.6 GM/dL (10.7-15.3); MCH 31.1 pg (25.7-33.7); MCHC 33.9 g/dl (32.0-36.0); MEAN CELL VOLUME 91.8 fl (80-96); MEAN PLT VOLUME 8.7 fl (7.5-11.1); MONO % 11.7 % (3.8-10.2); NEUT % 66.5 % (42.8-82.8); PLATELET COUNT 68 K/MM3 (134-434); RBC 3.41 M/mm3 (3.60-5.2); RDW 17.3 % (11.6-15.6); WHITE BLOOD COUNT 2.9 K/mm3 (4.0-10.0)
[2020-12-24 13:13] LABS: ALBUMIN 3.1 g/dl (3.4-5.0); BLOOD UREA NITROGEN 41.7 mg/dL (7-18); MAGNESIUM 2.1 mg/dL (1.8-2.4)
[2020-12-24 13:16] LABS: CREATININE 1.4 mg/dL (0.55-1.3)
[2020-12-24 13:17] LABS: BILIRUBIN,TOTAL 1.1 mg/dL (0.2-1); TOT PROT 7.6 g/dl (6.4-8.2)
[2020-12-24] MEDS ORDERED: MEROPENEM 1 GM VIAL (RESTRICTED TO ID) IVPB ONE (17:03)
[2020-12-24] MEDS ORDERED: DEXTROSE 5%-WATER 100 ML IVPB ONE (17:03)
[2020-12-24] MEDS: MEROPENEM 1 GM in DEXTROSE 5%-WATER 100 ML IVPB SCH (17:31)
[2020-12-24] MEDS: INSULIN (LEVEMIR) 100 UNITS/ML UNITS SQ SCH (22:04)
[2020-12-25] MEDS ORDERED: PRAMIPEXOLE DIHYDROCHLORIDE 1 MG TABLET PO ONE
[2020-12-25] MEDS: ALBUTEROL SO4 0.083% IH SOL 2.5 MG/3 ML VIAL.NEB. NEB SCH ×6 (01:00→20:10)
[2020-12-25] MEDS: MEROPENEM 1 GM in DEXTROSE 5%-WATER 100 ML IVPB SCH ×3 (03:00→17:04)
[2020-12-25] MEDS ORDERED: MEROPENEM 1 GM VIAL (RESTRICTED TO ID) IVPB ONE ×3 (04:41→17:02)
[2020-12-25] MEDS ORDERED: DEXTROSE 5%-WATER 100 ML IVPB ONE ×3 (04:41→17:03)
[2020-12-25] MEDS: INSULIN SLIDING SCALE (NOVOLOG) 1 VIAL SQ SCH ×4 (06:20→22:02)
[2020-12-25] MEDS: FUROSEMIDE 40 MG/4 ML INJECTABLE VIAL IVPUSH SCH (10:27)
[2020-12-25] MEDS: LISINOPRIL 20 MG TABLET PO SCH (10:27)
[2020-12-25] MEDS: metoPROLOL SUCCINATE 25 MG TAB.SR.24H (FP) PO SCH (10:28)
[2020-12-25] MEDS: SPIRONOLACTONE 25 MG TABLET PO SCH (10:28)
[2020-12-25] MEDS: APIXABAN 5 MG TABLET PO SCH ×2 (10:28→22:01)
[2020-12-25] MEDS: TIOTROPIUM BROMIDE 2.5 MCG (SPIRIVA) RESPIMAT INHALER IH SCH (10:32)
[2020-12-25] MEDS: lamoTRIgine 25 MG TABLET PO SCH (10:49)
[2020-12-25] MEDS: ACETAMINOPHEN 325 MG TABLET (FP) PO PRN (13:14)
[2020-12-25 15:15] LABS: BASO % 0.4 % (0-2.0); EOS % 0.8 % (0-4.5); HEMATOCRIT 32.9 % (32.4-45.2); HEMOGLOBIN 11.3 GM/dL (10.7-15.3); LYMPH % 8.6 % (8-40); MCH 31.3 pg (25.7-33.7); MCHC 34.2 g/dl (32.0-36.0); MEAN CELL VOLUME 91.7 fl (80-96); MEAN PLT VOLUME 9.4 fl (7.5-11.1); MONO % 10.7 % (3.8-10.2); NEUT % 79.5 % (42.8-82.8); PLATELET COUNT 83 K/MM3 (134-434); RBC 3.59 M/mm3 (3.60-5.2); RDW 16.6 % (11.6-15.6); WHITE BLOOD COUNT 3.7 K/mm3 (4.0-10.0)
[2020-12-25 15:40] LABS: ALBUMIN 3.2 g/dl (3.4-5.0); BLOOD UREA NITROGEN 29.9 mg/dL (7-18); CALCIUM 9.4 mg/dL (8.5-10.1); MAGNESIUM 1.9 mg/dL (1.8-2.4)
[2020-12-25 15:43] LABS: CREATININE 1.1 mg/dL (0.55-1.3)
[2020-12-25 15:45] LABS: BILIRUBIN,TOTAL 2.1 mg/dL (0.2-1); TOT PROT 8.3 g/dl (6.4-8.2)
[2020-12-25] MEDS: INSULIN (LEVEMIR) 100 UNITS/ML UNITS SQ SCH (22:07)
[2020-12-26] MEDS: ALBUTEROL SO4 0.083% IH SOL 2.5 MG/3 ML VIAL.NEB. NEB SCH ×6 (00:05→19:40)
[2020-12-26] MEDS ORDERED: DEXTROSE 5%-WATER 100 ML IVPB ONE ×3 (00:58→18:49)
[2020-12-26] MEDS ORDERED: MEROPENEM 1 GM VIAL (RESTRICTED TO ID) IVPB ONE ×3 (00:58→18:48)
[2020-12-26] MEDS: MEROPENEM 1 GM in DEXTROSE 5%-WATER 100 ML IVPB SCH ×3 (01:23→18:55)
[2020-12-26] MEDS: INSULIN SLIDING SCALE (NOVOLOG) 1 VIAL SQ SCH ×4 (06:23→22:32)
[2020-12-26 07:02] LABS: BASO % 0.6 % (0-2.0); EOS % 1.4 % (0-4.5); HEMOGLOBIN 10.9 GM/dL (10.7-15.3); LYMPH % 14.3 % (8-40); MCH 31.7 pg (25.7-33.7); MCHC 35.1 g/dl (32.0-36.0); MEAN CELL VOLUME 90.3 fl (80-96); MEAN PLT VOLUME 9.1 fl (7.5-11.1); MONO % 13.5 % (3.8-10.2); NEUT % 70.2 % (42.8-82.8); PLATELET COUNT 88 K/MM3 (134-434); RBC 3.43 M/mm3 (3.60-5.2); RDW 16.8 % (11.6-15.6); WHITE BLOOD COUNT 3.2 K/mm3 (4.0-10.0)
[2020-12-26 07:48] LABS: ALBUMIN 2.9 g/dl (3.4-5.0); BILIRUBIN,TOTAL 1.7 mg/dL (0.2-1); BLOOD UREA NITROGEN 25.8 mg/dL (7-18); MAGNESIUM 1.9 mg/dL (1.8-2.4); TOT PROT 7.6 g/dl (6.4-8.2)
[2020-12-26] MEDS: SPIRONOLACTONE 25 MG TABLET PO SCH (10:53)
[2020-12-26] MEDS: metoPROLOL SUCCINATE 25 MG TAB.SR.24H (FP) PO SCH (10:53)
[2020-12-26] MEDS: FUROSEMIDE 20 MG TABLET (FP) PO SCH (10:53)
[2020-12-26] MEDS: LISINOPRIL 20 MG TABLET PO SCH (10:53)
[2020-12-26] MEDS: APIXABAN 5 MG TABLET PO SCH ×2 (10:53→22:33)
[2020-12-26] MEDS: lamoTRIgine 25 MG TABLET PO SCH (10:54)
[2020-12-26] MEDS: TIOTROPIUM BROMIDE 2.5 MCG (SPIRIVA) RESPIMAT INHALER IH SCH (10:54)
[2020-12-26] MEDS ORDERED: POTASSIUM CHLORIDE TABS 20 MEQ TABLET.ER (FP) PO ONE (11:31)
[2020-12-26] MEDS: INSULIN (LEVEMIR) 100 UNITS/ML UNITS SQ SCH (22:32)
[2020-12-27] MEDS: ALBUTEROL SO4 0.083% IH SOL 2.5 MG/3 ML VIAL.NEB. NEB SCH ×7 (00:36→23:56)
[2020-12-27] MEDS: MEROPENEM 1 GM in DEXTROSE 5%-WATER 100 ML IVPB SCH ×3 (03:00→17:10)
[2020-12-27] MEDS ORDERED: MEROPENEM 1 GM VIAL (RESTRICTED TO ID) IVPB ONE ×3 (03:42→17:05)
[2020-12-27] MEDS ORDERED: DEXTROSE 5%-WATER 100 ML IVPB ONE ×3 (03:43→17:05)
[2020-12-27] MEDS: INSULIN SLIDING SCALE (NOVOLOG) 1 VIAL SQ SCH ×4 (06:21→21:40)
[2020-12-27 07:19] LABS: BASO % 0.5 % (0-2.0); HEMATOCRIT 31.1 % (32.4-45.2); LYMPH % 13.2 % (8-40); MCH 31.9 pg (25.7-33.7); MCHC 35.3 g/dl (32.0-36.0); MEAN CELL VOLUME 90.2 fl (80-96); MEAN PLT VOLUME 9.3 fl (7.5-11.1); NEUT % 71.3 % (42.8-82.8); PLATELET COUNT 100 K/MM3 (134-434); RBC 3.45 M/mm3 (3.60-5.2); RDW 16.7 % (11.6-15.6); WHITE BLOOD COUNT 4.1 K/mm3 (4.0-10.0)
[2020-12-27 07:48] LABS: CALCIUM 9.4 mg/dL (8.5-10.1)
[2020-12-27 07:49] LABS: ALBUMIN 2.9 g/dl (3.4-5.0); BLOOD UREA NITROGEN 25.3 mg/dL (7-18); MAGNESIUM 1.8 mg/dL (1.8-2.4)
[2020-12-27 07:52] LABS: CREATININE 0.9 mg/dL (0.55-1.3)
[2020-12-27 07:53] LABS: BILIRUBIN,TOTAL 1.2 mg/dL (0.2-1); TOT PROT 7.4 g/dl (6.4-8.2)
[2020-12-27] MEDS: LISINOPRIL 20 MG TABLET PO SCH (09:54)
[2020-12-27] MEDS: lamoTRIgine 25 MG TABLET PO SCH (09:55)
[2020-12-27] MEDS: metoPROLOL SUCCINATE 25 MG TAB.SR.24H (FP) PO SCH (09:55)
[2020-12-27] MEDS: APIXABAN 5 MG TABLET PO SCH ×2 (09:55→21:22)
[2020-12-27] MEDS: TIOTROPIUM BROMIDE 2.5 MCG (SPIRIVA) RESPIMAT INHALER IH SCH (09:55)
[2020-12-27] MEDS: SPIRONOLACTONE 25 MG TABLET PO SCH (09:55)
[2020-12-27] MEDS: FUROSEMIDE 20 MG TABLET (FP) PO SCH (09:55)
[2020-12-27] MEDS ORDERED: MAG HYDROX/AL HYDROX/SIMETH 30 ML UNIT-DOSE CUP PO ONE (20:52)
[2020-12-27] MEDS: ACETAMINOPHEN 325 MG TABLET (FP) PO PRN (21:21)
[2020-12-27] MEDS: LORazepam 0.5 MG TABLET PO PRN (21:22)
[2020-12-27] MEDS: oxyCODONE HCL 5 MG TABLET PO PRN (21:39)
[2020-12-27] MEDS: INSULIN (LEVEMIR) 100 UNITS/ML UNITS SQ SCH (21:40)
[2020-12-28] MEDS: MEROPENEM 1 GM in DEXTROSE 5%-WATER 100 ML IVPB SCH ×3 (02:09→17:20)
[2020-12-28] MEDS: ALBUTEROL SO4 0.083% IH SOL 2.5 MG/3 ML VIAL.NEB. NEB SCH ×5 (04:06→20:55)
[2020-12-28] MEDS: INSULIN SLIDING SCALE (NOVOLOG) 1 VIAL SQ SCH ×4 (06:26→23:20)
[2020-12-28 06:55] LABS: BASO % 0.6 % (0-2.0); EOS % 1.5 % (0-4.5); HEMATOCRIT 32.8 % (32.4-45.2); HEMOGLOBIN 11.3 GM/dL (10.7-15.3); LYMPH % 18.7 % (8-40); MCH 31.6 pg (25.7-33.7); MCHC 34.4 g/dl (32.0-36.0); MEAN CELL VOLUME 91.9 fl (80-96); MEAN PLT VOLUME 9.2 fl (7.5-11.1); MONO % 15.4 % (3.8-10.2); NEUT % 63.8 % (42.8-82.8); PLATELET COUNT 106 K/MM3 (134-434); RBC 3.57 M/mm3 (3.60-5.2); RDW 16.6 % (11.6-15.6); WHITE BLOOD COUNT 4.1 K/mm3 (4.0-10.0)
[2020-12-28 07:13] LABS: ALBUMIN 2.9 g/dl (3.4-5.0); BLOOD UREA NITROGEN 29.6 mg/dL (7-18); CALCIUM 9.1 mg/dL (8.5-10.1); MAGNESIUM 1.8 mg/dL (1.8-2.4)
[2020-12-28 07:17] LABS: CREATININE 1.2 mg/dL (0.55-1.3)
[2020-12-28 07:18] LABS: BILIRUBIN,TOTAL 1.1 mg/dL (0.2-1); TOT PROT 7.5 g/dl (6.4-8.2)
[2020-12-28] MEDS ORDERED: MEROPENEM 1 GM VIAL (RESTRICTED TO ID) IVPB ONE ×2 (08:35→17:07)
[2020-12-28] MEDS ORDERED: DEXTROSE 5%-WATER 100 ML IVPB ONE ×2 (08:36→17:07)
[2020-12-28] MEDS: FUROSEMIDE 20 MG TABLET (FP) PO SCH (09:11)
[2020-12-28] MEDS: lamoTRIgine 25 MG TABLET PO SCH (09:11)
[2020-12-28] MEDS: TIOTROPIUM BROMIDE 2.5 MCG (SPIRIVA) RESPIMAT INHALER IH SCH (09:12)
[2020-12-28] MEDS: APIXABAN 5 MG TABLET PO SCH ×2 (09:12→21:34)
[2020-12-28] MEDS: metoPROLOL SUCCINATE 25 MG TAB.SR.24H (FP) PO SCH (09:12)
[2020-12-28] MEDS: SPIRONOLACTONE 25 MG TABLET PO SCH (09:12)
[2020-12-28] MEDS: LISINOPRIL 20 MG TABLET PO SCH (09:12)
[2020-12-28] MEDS: oxyCODONE HCL 5 MG TABLET PO PRN (21:34)
[2020-12-28] MEDS: ACETAMINOPHEN 325 MG TABLET (FP) PO PRN (21:34)
[2020-12-28] MEDS: LORazepam 0.5 MG TABLET PO PRN (21:35)
[2020-12-28] MEDS: INSULIN (LEVEMIR) 100 UNITS/ML UNITS SQ SCH (23:19)
[2020-12-29] MEDS: ALBUTEROL SO4 0.083% IH SOL 2.5 MG/3 ML VIAL.NEB. NEB SCH ×6 (00:30→21:04)
[2020-12-29] MEDS ORDERED: MEROPENEM 1 GM VIAL (RESTRICTED TO ID) IVPB ONE ×2 (01:39→08:38)
[2020-12-29] MEDS ORDERED: DEXTROSE 5%-WATER 100 ML IVPB ONE ×2 (01:40→08:39)
[2020-12-29] MEDS: MEROPENEM 1 GM in DEXTROSE 5%-WATER 100 ML IVPB SCH ×2 (01:58→09:12)
[2020-12-29] MEDS: INSULIN SLIDING SCALE (NOVOLOG) 1 VIAL SQ SCH ×4 (06:54→21:49)
[2020-12-29 07:09] LABS: EOS % 1.1 % (0-4.5); HEMATOCRIT 31.2 % (32.4-45.2); HEMOGLOBIN 10.6 GM/dL (10.7-15.3); LYMPH % 19.2 % (8-40); MCHC 34.1 g/dl (32.0-36.0); MEAN CELL VOLUME 90.9 fl (80-96); MONO % 15.7 % (3.8-10.2); PLATELET COUNT 122 K/MM3 (134-434); RBC 3.44 M/mm3 (3.60-5.2); RDW 16.2 % (11.6-15.6); WHITE BLOOD COUNT 4.1 K/mm3 (4.0-10.0)
[2020-12-29 07:25] LABS: ALBUMIN 2.9 g/dl (3.4-5.0); BLOOD UREA NITROGEN 31.2 mg/dL (7-18); MAGNESIUM 2.1 mg/dL (1.8-2.4)
[2020-12-29 07:28] LABS: CREATININE 1.1 mg/dL (0.55-1.3)
[2020-12-29 07:29] LABS: BILIRUBIN,TOTAL 0.9 mg/dL (0.2-1); TOT PROT 7.4 g/dl (6.4-8.2)
[2020-12-29] MEDS ORDERED: PT OWN MED DRAWER 7, Y5N ONE (08:40)
[2020-12-29] MEDS: FUROSEMIDE 20 MG TABLET (FP) PO SCH (09:12)
[2020-12-29] MEDS: metoPROLOL SUCCINATE 25 MG TAB.SR.24H (FP) PO SCH (09:12)
[2020-12-29] MEDS: APIXABAN 5 MG TABLET PO SCH ×2 (09:12→21:43)
[2020-12-29] MEDS: TIOTROPIUM BROMIDE 2.5 MCG (SPIRIVA) RESPIMAT INHALER IH SCH (09:12)
[2020-12-29] MEDS: SPIRONOLACTONE 25 MG TABLET PO SCH (09:12)
[2020-12-29] MEDS: LISINOPRIL 20 MG TABLET PO SCH (09:12)
[2020-12-29] MEDS: lamoTRIgine 25 MG TABLET PO SCH (09:34)
[2020-12-29] MEDS: ACETAMINOPHEN 325 MG TABLET (FP) PO PRN ×2 (10:45→20:15)
[2020-12-29] MEDS: oxyCODONE HCL 5 MG TABLET PO PRN ×2 (10:46→20:15)
[2020-12-29] MEDS: LORazepam 0.5 MG TABLET PO PRN (20:17)
[2020-12-29] MEDS: INSULIN (LEVEMIR) 100 UNITS/ML UNITS SQ SCH (21:48)
[2020-12-30] MEDS: ALBUTEROL SO4 0.083% IH SOL 2.5 MG/3 ML VIAL.NEB. NEB SCH ×5 (00:35→15:25)
[2020-12-30] MEDS: INSULIN SLIDING SCALE (NOVOLOG) 1 VIAL SQ SCH ×3 (06:49→17:48)
[2020-12-30 07:36] LABS: BASO % 0.9 % (0-2.0); EOS % 1.1 % (0-4.5); HEMATOCRIT 28.7 % (32.4-45.2); HEMOGLOBIN 9.8 GM/dL (10.7-15.3); LYMPH % 18.4 % (8-40); MCHC 34.2 g/dl (32.0-36.0); MEAN CELL VOLUME 90.8 fl (80-96); MEAN PLT VOLUME 9.6 fl (7.5-11.1); NEUT % 61.6 % (42.8-82.8); PLATELET COUNT 122 K/MM3 (134-434); RBC 3.16 M/mm3 (3.60-5.2); RDW 16.1 % (11.6-15.6); WHITE BLOOD COUNT 4.1 K/mm3 (4.0-10.0)
[2020-12-30 08:13] LABS: ALBUMIN 2.8 g/dl (3.4-5.0); BLOOD UREA NITROGEN 32.3 mg/dL (7-18); MAGNESIUM 2.1 mg/dL (1.8-2.4)
[2020-12-30 08:18] LABS: BILIRUBIN,TOTAL 0.8 mg/dL (0.2-1)
[2020-12-30] MEDS: APIXABAN 5 MG TABLET PO SCH (09:35)
[2020-12-30] MEDS: SPIRONOLACTONE 25 MG TABLET PO SCH (09:35)
[2020-12-30] MEDS: FUROSEMIDE 20 MG TABLET (FP) PO SCH (09:36)
[2020-12-30] MEDS: metoPROLOL SUCCINATE 25 MG TAB.SR.24H (FP) PO SCH (09:37)
[2020-12-30] MEDS: LISINOPRIL 20 MG TABLET PO SCH (09:37)
[2020-12-30] MEDS: TIOTROPIUM BROMIDE 2.5 MCG (SPIRIVA) RESPIMAT INHALER IH SCH (09:38)
[2020-12-30] MEDS: lamoTRIgine 25 MG TABLET PO SCH (09:38)
[2020-12-30 13:10] VITALS: BMI 43.4
[2020-12-30] MEDS: LORazepam 0.5 MG TABLET PO PRN (15:23)
[2020-12-30 15:32] VITALS: BP 109/56; PULSE 92; TEMP 97.4
[2020-12-30] MEDS ORDERED: INSULIN (NOVOLOG) ASPART 100 UNITS/ML 10ML VIAL ONE (17:47)
== END 2020-12-30 20:40 | disposition home health service (06) | DRG 194 ==
LOC: JER 11:58 → JERBED 13:27 → JER 13:54 → J4W 12-23 01:53
PROVIDERS: ADMIT Internal Medicine; ATTEND Nurse Practitioner Acute Care
PROC: 30233N1 Transfusion of Nonautologous Red Blood Cells into Peripheral Vein, Percutaneous Approach (ICD-10-PCS; principal; 2020-12-22)
DX: I11.0 Hypertensive heart disease with heart failure (principal); I50.33 Acute on chronic diastolic (congestive) heart failure; I24.8 Other forms of acute ischemic heart disease; C55 Malignant neoplasm of uterus, part unspecified; D61.810 Antineoplastic chemotherapy induced pancytopenia; J96.21 Acute and chronic respiratory failure with hypoxia; C79.72 Secondary malignant neoplasm of left adrenal gland; C79.71 Secondary malignant neoplasm of right adrenal gland; C78.6 Secondary malignant neoplasm of retroperitoneum and peritoneum; J18.9 Pneumonia, unspecified organism; I69.354 Hemiplegia and hemiparesis following cerebral infarction affecting left non-dominant side; F31.9 Bipolar disorder, unspecified; E78.5 Hyperlipidemia, unspecified; Z79.4 Long term (current) use of insulin; J44.9 Chronic obstructive pulmonary disease, unspecified; E11.9 Type 2 diabetes mellitus without complications; Z86.718 Personal history of other venous thrombosis and embolism; Z86.711 Personal history of pulmonary embolism; T45.1X5A Adverse effect of antineoplastic and immunosuppressive drugs, initial encounter; D64.9 Anemia, unspecified; G47.33 Obstructive sleep apnea (adult) (pediatric); E66.01 Morbid (severe) obesity due to excess calories; I25.10 Atherosclerotic heart disease of native coronary artery without angina pectoris; Z68.41 Body mass index [BMI] 40.0-44.9, adult; G40.909 Epilepsy, unspecified, not intractable, without status epilepticus; N39.0 Urinary tract infection, site not specified; B96.20 Unspecified Escherichia coli [E. coli] as the cause of diseases classified elsewhere; F41.9 Anxiety disorder, unspecified
CPT/HCPCS: 36415; 36430; 36600; 71045-TC-FY; 80053; 81003; 82550; 82803; 82962; 83036; 83735; 83880; 84100; 84484; 85025; 85027; 85610; 85730; 86850; 86900; 86901; 86922; 87040; 87086; 87186; 87804; 93005; 93010; 94640; 94660; 94761; 97116-GP; 97162-GP; 99291; C9803; P9058; U0003; U0005

== ENCOUNTER 2021-05-05 15:01 | Inpatient (IN) | payer OTHER ==
[2021-05-05 15:31] VITALS: BMI 42.4
[2021-05-05] MEDS ORDERED: ACETAMINOPHEN 1000 MG/100 ML VIAL (NON FORMULARY) IVPB ONE (15:56)
[2021-05-05] MEDS ORDERED: ACETAMINOPHEN INJECTION 100 ML IVPB ONE (16:14)
[2021-05-05 16:47] LABS: BASO % 0.5 % (0-2.0); EOS % 2.8 % (0-4.5); HEMATOCRIT 27.2 % (32.4-45.2); HEMOGLOBIN 9.1 GM/dL (10.7-15.3); LYMPH % 8.4 % (8-40); MCH 26.7 pg (25.7-33.7); MCHC 33.4 g/dl (32.0-36.0); MEAN PLT VOLUME 7.2 fl (7.5-11.1); MONO % 8.7 % (3.8-10.2); NEUT % 79.6 % (42.8-82.8); PLATELET COUNT 200 10^3/uL (134-434); RBC 3.39 M/mm3 (3.60-5.2); RDW 14.5 % (11.6-15.6); WHITE BLOOD COUNT 7.3 K/mm3 (4.0-10.0)
[2021-05-05 16:58] LABS: INR 1.28 (0.83-1.09); PROTHROMBIN TIME (PATIENT) 15.8 SEC (9.7-13.0)
[2021-05-05 17:01] LABS: ACTIVATED PTT 27.7 SECONDS (25.2-36.5)
[2021-05-05] MEDS ORDERED: oxyCODONE HCL 5 MG TABLET PO ONE (17:05)
[2021-05-05] MEDS ORDERED: clonazePAM 0.5 MG TABLET PO ONE (17:06)
[2021-05-05] MEDS ORDERED: oxyCODONE HCL 10 MG SUSTAINED ACTING TABLET ONE (17:07)
[2021-05-05] MEDS ORDERED: clonazePAM 0.5 MG TABLET ONE ×2 (17:07→17:09)
[2021-05-05 17:09] LABS: CHLORIDE 97 mmol/L (98-107); SODIUM 135 mmol/L (136-145)
[2021-05-05 17:12] LABS: ALBUMIN 2.9 g/dl (3.4-5.0); ANION GAP 9 MMOL/L (8-16); CALCIUM 8.7 mg/dL (8.5-10.1); CO2 29 mmol/L (21-32); LIPASE 55 U/L (73-393)
[2021-05-05 17:13] LABS: BLOOD UREA NITROGEN 18.8 mg/dL (7-18); GLUCOSE,RANDOM 157 mg/dL (74-106); MAGNESIUM 1.8 mg/dL (1.8-2.4)
[2021-05-05 17:15] LABS: CREATININE 1.3 mg/dL (0.55-1.3); SGOT/AST 29 U/L (15-37); SGPT/ALT 9 U/L (13-61)
[2021-05-05 17:17] LABS: BILIRUBIN,TOTAL 0.5 mg/dL (0.2-1); TOT PROT 7.6 g/dl (6.4-8.2)
[2021-05-05 17:18] LABS: ALK PHOS 222 U/L (45-117)
[2021-05-05 17:19] LABS: LACTIC ACID 2.5 mmol/L (0.4-2.0)
[2021-05-05] MEDS ORDERED: SODIUM CHLORIDE 0.9% 500 ML INFUS.BAG IV ONE ×2 (17:36→17:49)
[2021-05-05 17:38] LABS: EPI CELLS 11 /uL (0-25.1); HYALINE CASTS 2 /uL (0-3.1); URINE APPEARANCE CLEAR; URINE BACTERIA 13 /uL (0-1359); URINE BILIRUBIN NEGATIVE (NEGATIVE); URINE COLOR YELLOW; URINE GLUCOSE (UA) NEGATIVE (NEGATIVE); URINE KETONE NEGATIVE (NEGATIVE); URINE LEUK ESTERASE TRACE (NEGATIVE); URINE NITRITE NEGATIVE (NEGATIVE); URINE PROTEIN NEGATIVE (NEGATIVE); URINE RBC 141 /uL (0-23.9); URINE WBC 15 /uL (0-25.8)
[2021-05-05] MEDS ORDERED: morphine CARPU-JECT 2 MG/1 ML DISP.SYRIN IVPUSH ONE (18:45)
[2021-05-05] MEDS ORDERED: morphine SULFATE 4 MG/ML VIAL ONE (18:49)
[2021-05-05] MEDS ORDERED: ACETAMINOPHEN 325 MG TABLET (FP) PO PRN (23:04)
[2021-05-05] MEDS ORDERED: SODIUM CHLORIDE 1,000 ML IV SCH (23:15)
[2021-05-06] MEDS ORDERED: APIXABAN 5 MG TABLET ONE ×3 (00:17→10:19)
[2021-05-06] MEDS ORDERED: ACETAMINOPHEN 325 MG TABLET (FP) ONE (00:31)
[2021-05-06] MEDS: APIXABAN 5 MG TABLET PO SCH ×2 (00:35→10:23)
[2021-05-06] MEDS: GABAPENTIN 400 MG CAPSULE PO SCH ×3 (00:35→13:23)
[2021-05-06] MEDS ORDERED: oxyCODONE HCL 5 MG TABLET PO ONE ×2 (01:17→04:41)
[2021-05-06] MEDS ORDERED: clonazePAM 0.5 MG TABLET PO PRN (01:19)
[2021-05-06] MEDS ORDERED: oxyCODONE HCL 5 MG TABLET ONE (04:54)
[2021-05-06] MEDS ORDERED: ALBUTEROL SO4 HFA INHALER IH PRN (05:35)
[2021-05-06] MEDS ORDERED: POLYETHYLENE GLYCOL (HEALTHYLAX) 3350 17 GM PACKET ONE (06:10)
[2021-05-06] MEDS: POLYETHYLENE GLYCOL (HEALTHYLAX) 3350 17 GM PACKET PO SCH ×2 (06:14→13:23)
[2021-05-06 07:33] LABS: CALCIUM 8.5 mg/dL (8.5-10.1)
[2021-05-06 07:34] LABS: BLOOD UREA NITROGEN 25.1 mg/dL (7-18)
[2021-05-06 07:37] LABS: CREATININE 1.5 mg/dL (0.55-1.3); HEMATOCRIT 25.4 % (32.4-45.2); HEMOGLOBIN 8.5 GM/dL (10.7-15.3); MCH 27.1 pg (25.7-33.7); MCHC 33.3 g/dl (32.0-36.0); MEAN CELL VOLUME 81.3 fl (80-96); MEAN PLT VOLUME 7.9 fl (7.5-11.1); PLATELET COUNT 184 10^3/uL (134-434); RBC 3.13 M/mm3 (3.60-5.2); RDW 14.5 % (11.6-15.6); WHITE BLOOD COUNT 7.3 K/mm3 (4.0-10.0)
[2021-05-06 07:38] LABS: PHOSPHOROUS 3.8 mg/dL (2.5-4.9)
[2021-05-06] MEDS ORDERED: clonazePAM 0.5 MG TABLET ONE (07:59)
[2021-05-06] MEDS: INSULIN SLIDING SCALE (NOVOLOG) 1 VIAL SQ SCH ×2 (08:12→12:40)
[2021-05-06] MEDS ORDERED: PANTOPRAZOLE 40 MG TABLET PO SCH (10:00)
[2021-05-06] MEDS ORDERED: TIOTROPIUM BROMIDE 2.5 MCG (SPIRIVA) RESPIMAT INHALER IH SCH (10:00)
[2021-05-06] MEDS ORDERED: SODIUM CHLORIDE 250 ML IV STA (10:14)
[2021-05-06 16:17] VITALS: BP 108/60; PULSE 99; TEMP 98.6
== END 2021-05-06 16:26 | disposition home or self-care (01) | DRG 756 ==
LOC: JER 15:01 → JERBED 17:09 → OBSVTOIN 23:04
PROVIDERS: ADMIT Internal Medicine; ATTEND Internal Medicine
DX: F41.8 Other specified anxiety disorders (principal); R00.2 Palpitations; I10 Essential (primary) hypertension; E78.5 Hyperlipidemia, unspecified; E11.9 Type 2 diabetes mellitus without complications; I69.354 Hemiplegia and hemiparesis following cerebral infarction affecting left non-dominant side; R00.0 Tachycardia, unspecified; Z68.41 Body mass index [BMI] 40.0-44.9, adult; E66.01 Morbid (severe) obesity due to excess calories; F31.9 Bipolar disorder, unspecified; G62.9 Polyneuropathy, unspecified; D64.9 Anemia, unspecified; J44.9 Chronic obstructive pulmonary disease, unspecified; J45.909 Unspecified asthma, uncomplicated; G47.33 Obstructive sleep apnea (adult) (pediatric); F43.10 Post-traumatic stress disorder, unspecified; I50.32 Chronic diastolic (congestive) heart failure; C79.51 Secondary malignant neoplasm of bone; R18.8 Other ascites; C54.1 Malignant neoplasm of endometrium; R10.12 Left upper quadrant pain; E86.0 Dehydration
CPT/HCPCS: 36415; 71045-TC-FY; 74176-TC; 80048; 80053; 81003; 82550; 82962; 83605; 83690; 83735; 84100; 84443; 84484; 85025; 85027; 85610; 85730; 87086; 93005; 93010; 99285-25; C9803; G0378; J0131; U0003; U0005

== ENCOUNTER 2021-05-24 13:43 | Inpatient (IN) | payer OTHER ==
[2021-05-24 14:59] VITALS: BMI 43.4
[2021-05-24] MEDS ORDERED: FUROSEMIDE 40 MG/4 ML INJECTABLE VIAL IVPUSH ONE ×2 (16:00→17:19)
[2021-05-24 16:17] LABS: BASO % 0.7 % (0-2.0); EOS % 0.7 % (0-4.5); HEMATOCRIT 31.1 % (32.4-45.2); LYMPH % 7.3 % (8-40); MCHC 32.1 g/dl (32.0-36.0); MEAN PLT VOLUME 8.1 fl (7.5-11.1); MONO % 7.3 % (3.8-10.2); PLATELET COUNT 155 10^3/uL (134-434); RBC 3.83 M/mm3 (3.60-5.2); RDW 15.5 % (11.6-15.6); WHITE BLOOD COUNT 12.5 K/mm3 (4.0-10.0)
[2021-05-24 16:39] LABS: ALBUMIN 2.7 g/dl (3.4-5.0); BLOOD UREA NITROGEN 24.7 mg/dL (7-18)
[2021-05-24 16:42] LABS: CREATININE 1.5 mg/dL (0.55-1.3)
[2021-05-24 16:44] LABS: BILIRUBIN,TOTAL 0.7 mg/dL (0.2-1); TOT PROT 7.4 g/dl (6.4-8.2)
[2021-05-24 16:53] LABS: INR 1.35 (0.83-1.09); PROTHROMBIN TIME (PATIENT) 15.2 SEC (9.7-13.0)
[2021-05-24 16:55] LABS: ACTIVATED PTT 29.3 SECONDS (25.2-36.5)
[2021-05-24] MEDS ORDERED: ACETAMINOPHEN 1000 MG/100 ML VIAL IVPB ONE ×2 (16:59→23:10)
[2021-05-24] MEDS ORDERED: ACETAMINOPHEN INJECTION 100 ML IVPB ONE ×2 (17:04→23:43)
[2021-05-24] MEDS ORDERED: SODIUM CHLORIDE 0.9% 500 ML INFUS.BAG IV ONE (17:04)
[2021-05-24] MEDS ORDERED: FUROSEMIDE 40 MG/4 ML INJECTABLE VIAL ONE (17:22)
[2021-05-24] MEDS ORDERED: FAMOTIDINE 20 MG/50 ML IVPB 20 MG/50 ML MG IVPB ONE ×2 (17:50→18:39)
[2021-05-24] MEDS ORDERED: MAG HYDROX/AL HYDROX/SIMETH 30 ML UNIT-DOSE CUP PO ONE (17:50)
[2021-05-24] MEDS ORDERED: HEPARIN NA (PORCINE) 5,000 UNITS/ML 1ML VIAL IVPUSH ONE (18:11)
[2021-05-24] MEDS ORDERED: HEPARIN NA (PORCINE) 5,000 UNITS/ML 1ML VIAL IVPUSH PRN ×2 (18:11)
[2021-05-24] MEDS ORDERED: HEPARIN INFUSION - 25,000 UNITS/500 ML INFUS.BAG IVPB SCH (18:15)
[2021-05-24] MEDS ORDERED: ENOXAPARIN NA (PORCINE) 100 MG/1 ML DISP.SYRIN SQ ONE ×2 (18:31→18:39)
[2021-05-24] MEDS ORDERED: DEXAMETHASONE SOD PHOSPHATE 10 MG/1 ML VIAL IVPUSH ONE (18:31)
[2021-05-24] MEDS ORDERED: DEXAMETHASONE SOD PHOSPHATE 10 MG/1 ML VIAL ONE (18:38)
[2021-05-24] MEDS ORDERED: MAG HYDROX/AL HYDROX/SIMETH 30 ML UNIT-DOSE CUP ONE (18:39)
[2021-05-24] MEDS ORDERED: Insulin (LOG) Aspart 100 UNITS/ML VIAL SQ ONE (18:44)
[2021-05-24] MEDS ORDERED: DOCUSATE SODIUM 100 MG CAPSULE (FP) PO ONE (18:47)
[2021-05-24] MEDS ORDERED: oxyCODONE HCL 5 MG TABLET PO ONE (18:47)
[2021-05-24] MEDS ORDERED: oxyCODONE HCL 5 MG TABLET ONE (19:42)
[2021-05-24] MEDS ORDERED: HYDROmorphone HCl 2 MG/ML VIAL IVPB ONE (20:28)
[2021-05-24] MEDS ORDERED: METOPROLOL TARTRATE 5 MG/5 ML VIAL IVPUSH ONE (21:51)
[2021-05-24] MEDS ORDERED: DOCUSATE SODIUM 100 MG CAPSULE (FP) PO SCH (22:00)
[2021-05-24] MEDS ORDERED: INSULIN (LEVEMIR) 100 UNITS/ML UNITS SQ SCH (22:00)
[2021-05-24] MEDS ORDERED: METOPROLOL TARTRATE 5 MG/5 ML VIAL ONE (22:22)
[2021-05-24] MEDS: INSULIN SLIDING SCALE (NOVOLOG) 1 VIAL SQ SCH (22:33)
[2021-05-24] MEDS: INSULIN (LEVEMIR) 100 UNITS/ML UNITS SQ SCH (22:33)
[2021-05-24] MEDS ORDERED: MEROPENEM 1 GM in DEXTROSE 5%-WATER 100 ML IVPB ONE (22:34)
[2021-05-24] MEDS ORDERED: VANCOMYCIN 1 GM in D5W (PRE-DOCKED) 1,000 MG/250 ML IVPB ONE (22:35)
[2021-05-24 22:59] LABS: EPI CELLS >36 /uL (0-25.1); HYALINE CASTS 17 /uL (0-3.1); URINE APPEARANCE CLOUDY; URINE BACTERIA 0 /uL (0-1359); URINE BILIRUBIN 1+ (NEGATIVE); URINE COLOR DK YELLOW; URINE GLUCOSE (UA) TRACE (NEGATIVE); URINE KETONE TRACE (NEGATIVE); URINE LEUK ESTERASE 1+ (NEGATIVE); URINE NITRITE NEGATIVE (NEGATIVE); URINE PROTEIN 2+ (NEGATIVE); URINE RBC 16 /uL (0-23.9); URINE WBC 45 /uL (0-25.8)
[2021-05-24] MEDS ORDERED: MEROPENEM 1 GM VIAL (RESTRICTED TO ID) IVPB ONE (23:43)
[2021-05-25] MEDS ORDERED: HYDROmorphone HCl 2 MG/ML VIAL IVPUSH ONE ×2 (00:23→04:21)
[2021-05-25] MEDS ORDERED: LINEZOLID 600 MG PREMIX BAG 600 MG/300 ML BAG IVPB ONE (00:30)
[2021-05-25] MEDS ORDERED: HYDROmorphone HCl 2 MG/ML VIAL ONE ×2 (01:15→04:53)
[2021-05-25] MEDS ORDERED: SODIUM CHLORIDE 250 ML IV STA ×2 (04:20→20:51)
[2021-05-25 07:22] LABS: INR 1.43 (0.83-1.09); PROTHROMBIN TIME (PATIENT) 16.1 SEC (9.7-13.0)
[2021-05-25 07:24] LABS: ACTIVATED PTT 28.4 SECONDS (25.2-36.5)
[2021-05-25 07:38] LABS: BASO % 0.3 % (0-2.0); EOS % 0.1 % (0-4.5); HEMATOCRIT 28.7 % (32.4-45.2); HEMOGLOBIN 9.3 GM/dL (10.7-15.3); LYMPH % 5.3 % (8-40); MCH 26.2 pg (25.7-33.7); MCHC 32.5 g/dl (32.0-36.0); MEAN CELL VOLUME 80.5 fl (80-96); MEAN PLT VOLUME 8.8 fl (7.5-11.1); MONO % 4.7 % (3.8-10.2); NEUT % 89.6 % (42.8-82.8); PLATELET COUNT 143 10^3/uL (134-434); RBC 3.57 M/mm3 (3.60-5.2); RDW 15.4 % (11.6-15.6); WHITE BLOOD COUNT 12.3 K/mm3 (4.0-10.0)
[2021-05-25 07:59] LABS: ALBUMIN 2.4 g/dl (3.4-5.0)
[2021-05-25 08:00] LABS: BLOOD UREA NITROGEN 33.9 mg/dL (7-18); CALCIUM 8.3 mg/dL (8.5-10.1)
[2021-05-25 08:02] LABS: CREATININE 2.1 mg/dL (0.55-1.3)
[2021-05-25 08:03] LABS: PHOSPHOROUS 5.4 mg/dL (2.5-4.9)
[2021-05-25 08:04] LABS: TOT PROT 7.1 g/dl (6.4-8.2)
[2021-05-25 08:07] LABS: BILIRUBIN,TOTAL 0.9 mg/dL (0.2-1)
[2021-05-25] MEDS: INSULIN (LEVEMIR) 100 UNITS/ML UNITS SQ SCH ×2 (08:16→21:58)
[2021-05-25] MEDS: INSULIN SLIDING SCALE (NOVOLOG) 1 VIAL SQ SCH ×4 (08:16→21:59)
[2021-05-25] MEDS ORDERED: ALBUTEROL SO4 2.5/IPRATROPIUM 0.5 INH SOL 3 ML VIAL.NEB. NEB PRN (08:44)
[2021-05-25] MEDS ORDERED: oxyCODONE HCL 5 MG TABLET ONE (09:27)
[2021-05-25] MEDS ORDERED: clonazePAM 0.5 MG TABLET ONE (09:27)
[2021-05-25] MEDS: clonazePAM 0.5 MG TABLET PO PRN ×2 (09:32→21:43)
[2021-05-25] MEDS: oxyCODONE HCL 5 MG TABLET PO PRN (09:32)
[2021-05-25] MEDS ORDERED: APIXABAN 5 MG TABLET ONE (12:28)
[2021-05-25] MEDS ORDERED: DOCUSATE SODIUM 100 MG CAPSULE (FP) PO ONE (12:28)
[2021-05-25] MEDS: DOCUSATE SODIUM 100 MG CAPSULE (FP) PO SCH ×2 (12:37→21:43)
[2021-05-25] MEDS: APIXABAN 5 MG TABLET PO SCH ×2 (12:37→21:43)
[2021-05-25] MEDS ORDERED: morphine SULFATE 4 MG/ML VIAL IVPUSH ONE (14:31)
[2021-05-25] MEDS ORDERED: ACETAMINOPHEN 1000 MG/100 ML VIAL IVPB ONE (14:41)
[2021-05-25] MEDS ORDERED: FUROSEMIDE 40 MG TABLET (FP) PO ONE (16:02)
[2021-05-25] MEDS: SODIUM BICARBONATE 650 MG TABLET PO SCH ×2 (17:10→21:44)
[2021-05-25] MEDS: SODIUM ZIRCONIUM CYCLOSILICATE (LOKELMA) 5 GM PACKET PO SCH (17:11)
[2021-05-25] MEDS: NYSTATIN POWDER 100,000 UNITS/GM - 15 GM TOPICAL POWDER TP SCH ×2 (17:20→22:03)
[2021-05-25] MEDS ORDERED: Insulin (LOG) Aspart 100 UNITS/ML VIAL SQ ONE (18:44)
[2021-05-25] MEDS ORDERED: MEROPENEM 1 GM in DEXTROSE 5%-WATER 100 ML IVPB ONE (18:59)
[2021-05-25] MEDS ORDERED: SODIUM CHLORIDE 1,000 ML IV SCH (19:15)
[2021-05-25] MEDS ORDERED: MEROPENEM 1 GM VIAL (RESTRICTED TO ID) IVPB ONE (20:21)
[2021-05-25] MEDS ORDERED: DEXTROSE 5%-WATER 100 ML IVPB ONE (20:21)
[2021-05-25] MEDS ORDERED: LIDOCAINE 5% TOPICAL PATCH TP ONE (20:36)
[2021-05-25] MEDS: ACETAMINOPHEN 1000 MG/100 ML VIAL IVPB SCH (21:38)
[2021-05-25] MEDS: GABAPENTIN 100 MG CAPSULE PO SCH (21:43)
[2021-05-26] MEDS ORDERED: MEROPENEM 1 GM VIAL (RESTRICTED TO ID) IVPB ONE ×2 (00:55→08:35)
[2021-05-26] MEDS ORDERED: DEXTROSE 5%-WATER 100 ML IVPB ONE ×2 (00:56→08:35)
[2021-05-26] MEDS: MEROPENEM 1 GM in DEXTROSE 5%-WATER 100 ML IVPB SCH ×4 (01:12→16:56)
[2021-05-26] MEDS: ACETAMINOPHEN 1000 MG/100 ML VIAL IVPB SCH ×2 (01:47→09:46)
[2021-05-26] MEDS: oxyCODONE HCL 5 MG TABLET PO PRN ×3 (03:39→16:19)
[2021-05-26 05:50] VITALS: TEMP 98
[2021-05-26] MEDS: GABAPENTIN 100 MG CAPSULE PO SCH (05:51)
[2021-05-26] MEDS: NYSTATIN POWDER 100,000 UNITS/GM - 15 GM TOPICAL POWDER TP SCH ×2 (05:51→14:38)
[2021-05-26] MEDS: INSULIN SLIDING SCALE (NOVOLOG) 1 VIAL SQ SCH ×3 (06:39→16:57)
[2021-05-26] MEDS: INSULIN (LEVEMIR) 100 UNITS/ML UNITS SQ SCH (06:39)
[2021-05-26] MEDS ORDERED: LIDOCAINE PATCH REMOVAL MC ONE (09:00)
[2021-05-26] MEDS: clonazePAM 0.5 MG TABLET PO PRN (09:35)
[2021-05-26] MEDS: DOCUSATE SODIUM 100 MG CAPSULE (FP) PO SCH (09:35)
[2021-05-26] MEDS: APIXABAN 5 MG TABLET PO SCH (09:35)
[2021-05-26] MEDS: SODIUM ZIRCONIUM CYCLOSILICATE (LOKELMA) 5 GM PACKET PO SCH (09:37)
[2021-05-26] MEDS: SODIUM BICARBONATE 650 MG TABLET PO SCH (09:50)
[2021-05-26 11:55] LABS: HEMATOCRIT 26.7 % (32.4-45.2); HEMOGLOBIN 8.8 GM/dL (10.7-15.3); MCH 26.4 pg (25.7-33.7); MCHC 33.1 g/dl (32.0-36.0); MEAN PLT VOLUME 8.3 fl (7.5-11.1); PLATELET COUNT 156 10^3/uL (134-434); RBC 3.33 M/mm3 (3.60-5.2); RDW 15.7 % (11.6-15.6); WHITE BLOOD COUNT 13.6 K/mm3 (4.0-10.0)
[2021-05-26 12:17] LABS: ALBUMIN 2.2 g/dl (3.4-5.0); CALCIUM 8.5 mg/dL (8.5-10.1)
[2021-05-26 12:18] LABS: BLOOD UREA NITROGEN 49.6 mg/dL (7-18); MAGNESIUM 2.2 mg/dL (1.8-2.4)
[2021-05-26 12:21] LABS: CREATININE 3.1 mg/dL (0.55-1.3)
[2021-05-26 12:22] LABS: BILIRUBIN,TOTAL 0.5 mg/dL (0.2-1); TOT PROT 6.7 g/dl (6.4-8.2)
[2021-05-26] MEDS ORDERED: GABAPENTIN 400 MG CAPSULE PO SCH (12:39)
[2021-05-26] MEDS ORDERED: SODIUM ZIRCONIUM CYCLOSILICATE (LOKELMA) 5 GM PACKET PO SCH (13:00)
[2021-05-26 13:40] LABS: ANISOCYTOSIS 0; HELMET CELLS 0; HOWELL-JOLLY BODIES 0; MACROCYTOSIS 0; OVALOCYTE 0; PLATELET ESTIMATE NORMAL; ROULEAU 0; SICKELED CELLS 0; TARGET CELLS 0; TEAR DROP CELLS 0; TOXIC GRANULATION 0
[2021-05-26 15:56] LABS: EPI CELLS 7 /uL (0-25.1); HYALINE CASTS 15 /uL (0-3.1); URINE APPEARANCE TURBID; URINE BACTERIA 1 /uL (0-1359); URINE BILIRUBIN NEGATIVE (NEGATIVE); URINE COLOR DK YELLOW; URINE GLUCOSE (UA) NEGATIVE (NEGATIVE); URINE KETONE TRACE (NEGATIVE); URINE LEUK ESTERASE 2+ (NEGATIVE); URINE NITRITE NEGATIVE (NEGATIVE); URINE PROTEIN 1+ (NEGATIVE); URINE RBC 1659 /uL (0-23.9); URINE WBC 17 /uL (0-25.8)
[2021-05-26] MEDS ORDERED: ACETAMINOPHEN 1000 MG/100 ML VIAL IVPB SCH (16:15)
[2021-05-26] MEDS ORDERED: clonazePAM 0.5 MG TABLET PO ONE (16:16)
[2021-05-26] MEDS ORDERED: LACTULOSE 20 GM/30 ML UDC (FOR ORAL USE ONLY) PO ONE (16:53)
[2021-05-26] MEDS ORDERED: INSULIN REGULAR HUMAN 100 UNITS/ML *VIAL IVPUSH ONE (16:58)
[2021-05-26] MEDS ORDERED: DEXTROSE 50%-WATER - 25 GM/50 ML VIAL IVPUSH ONE (16:58)
[2021-05-26] MEDS ORDERED: CALCIUM GLUCONATE 10% - 1,000 MG/10 ML VIAL IVPB ONE (16:59)
[2021-05-26] MEDS ORDERED: SODIUM CHLORIDE 500 ML IV STA (17:02)
[2021-05-26] MEDS ORDERED: FUROSEMIDE 40 MG/4 ML INJECTABLE VIAL IVPUSH ONE (17:03)
[2021-05-26] MEDS ORDERED: SODIUM ZIRCONIUM CYCLOSILICATE (LOKELMA) 5 GM PACKET PO ONE (17:04)
[2021-05-26] MEDS ORDERED: SODIUM BICARBONATE IV SCH (17:30)
[2021-05-26] MEDS ORDERED: SODIUM CHLORIDE 0.45% IV SCH (17:30)
[2021-05-26 17:40] VITALS: BP 106/58; PULSE 70
[2021-05-26] MEDS ORDERED: CALCIUM CHLORIDE 1 GM/10 ML *DISP.SYRIN ONE ×2 (18:03→18:04)
[2021-05-26] MEDS ORDERED: MEROPENEM 1 GM in DEXTROSE 5%-WATER 100 ML IVPB SCH (22:00)
[2021-05-26] MEDS ORDERED: MUPIROCIN 2% TOPICAL OINTMENT FOR DECOLONIZATION NS SCH (22:00)
[2021-05-26] MEDS ORDERED: CHLORHEXIDINE GLUCONATE 4% CLEANSER FOR DECOLONIZATION TP SCH (22:00)
== END 2021-05-26 21:18 | disposition expired | DRG 720 ==
LOC: JER 13:43 → JERBED 19:45 → J4W 05-25 16:46 → JICU 05-26 17:44
PROVIDERS: ADMIT Internal Medicine; ATTEND Internal Medicine Pulmonary Disease
PROC: 5A12012 Performance of Cardiac Output, Single, Manual (ICD-10-PCS; principal; 2021-05-26)
PROC: 0BH17EZ Insertion of Endotracheal Airway into Trachea, Via Natural or Artificial Opening (ICD-10-PCS; 2021-05-26)
DX: A41.9 Sepsis, unspecified organism (principal); N17.9 Acute kidney failure, unspecified; I82.411 Acute embolism and thrombosis of right femoral vein; I26.99 Other pulmonary embolism without acute cor pulmonale; I11.0 Hypertensive heart disease with heart failure; I50.32 Chronic diastolic (congestive) heart failure; I69.354 Hemiplegia and hemiparesis following cerebral infarction affecting left non-dominant side; Z99.81 Dependence on supplemental oxygen; C79.51 Secondary malignant neoplasm of bone; E87.5 Hyperkalemia; Z68.41 Body mass index [BMI] 40.0-44.9, adult; E87.1 Hypo-osmolality and hyponatremia; E66.01 Morbid (severe) obesity due to excess calories; M84.58XA Pathological fracture in neoplastic disease, other specified site, initial encounter for fracture; J44.9 Chronic obstructive pulmonary disease, unspecified; C54.1 Malignant neoplasm of endometrium; G47.33 Obstructive sleep apnea (adult) (pediatric); F31.9 Bipolar disorder, unspecified; Z79.01 Long term (current) use of anticoagulants; Z86.718 Personal history of other venous thrombosis and embolism; F43.10 Post-traumatic stress disorder, unspecified; E78.5 Hyperlipidemia, unspecified; F41.9 Anxiety disorder, unspecified; M25.512 Pain in left shoulder; R77.8 Other specified abnormalities of plasma proteins; E11.9 Type 2 diabetes mellitus without complications; Z79.4 Long term (current) use of insulin; D64.9 Anemia, unspecified
CPT/HCPCS: 36415; 71045-TC-FY; 72192-TC; 73030-TC-LT-FY; 73110-TC-LT-FY; 73130-TC-LT-FY; 73200-TC-RT; 80053; 81003; 82436; 82550; 82570; 82962; 83735; 83880; 84100; 84132; 84133; 84300; 84484; 85025; 85610; 85730; 87040; 87086; 87804; 93005; 93010; 93306-TC; 93970-TC; 97116-GP; 97162-GP; 99285-25; C9803; J0131; J1100; U0003; U0005